=== PATIENT | male | born 1965 | race Caucasian/White ===

== ENCOUNTER 2017-12-13 21:02 | Emergency (ER) | payer OTHER, SELFPAY ==
[2017-12-13 21:47] LABS: Absolute Lymphocytes (CBC) 2.8 K/uL (0.7-4.9); Absolute Monocytes 0.6 K/uL (0.1-1.3); Absolute Neutrophil 3.6 K/uL (1.8-8.0); Eosinophils % 4.1 % (0-4.4); Hematocrit 42.3 % (39.6-49.0); Lymphocytes % 37.3 % (15.3-44.8); MCH 30.7 pg (27.0-35.0); MCV 92.3 fL (80-100); MPV 7.5 fL (7.6-11.3); Monocytes % 8.5 % (3.3-12.3); RBC Red Blood Cell Count 4.58 M/uL (4.33-5.43)
[2017-12-13 21:52] LABS: Protime INR 0.93
[2017-12-13 21:57] LABS: Bicarbonate 28 mEq/L (21-31); Glucose Level 93 mg/dL (65-120); Sodium Level 137 mEq/L (135-145)
[2017-12-13 22:03] LABS: ALT/SGPT 22 IU/L (10-60); AST/SGOT 25 IU/L (10-42); Albumin 3.9 g/dL (3.2-5.5); Alkaline Phosphatase 73 IU/L (42-121); BUN Blood Urea Nitrogen 18 mg/dL (6-20); Bilirubin Direct < 0.1 mg/dL (0-0.2); Bilirubin Total 0.5 mg/dL (0.3-1.2); Creatine Phosphokinase 221 IU/L (22-269); Glomerular Filtration Rate 68 mL/min (=/>90); Magnesium 1.8 mg/dL (1.8-2.5); Protein, Total 7.2 g/dL (6.0-8.3)
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
[2017-12-13 22:06] LABS: CKMB Creatine Kinase MB 5.5 ng/ml (0.3-4.0)
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
[2017-12-13 22:44] VITALS: BP 116/72; TEMP 98.2; O2SAT 97
--- NOTE | 2017-12-14 10:23 | EKG ---
Test Date: 2017-12-13 Test Time: 21:23:21 Transport Driver: VICKI MEASUREMENT RESULTS: Intervals: Rate: 63 FL: 162 QRSD: 92 QT: 410 QTc: 419 [place]: P: 65 FL: 162 QRS: 36 T: 44 INTERPRETIVE STATEMENTS: Normal sinus rhythm Normal ECG Compared to ECG 07/11/2017 22:01:04 No significant changes Electronically Signed On 12-14-17 10:22:58 CDT by Bk Ruelas
== END 2017-12-13 22:36 | disposition home or self-care (01) ==
LOC: ER 21:02
DX: I10 Essential (primary) hypertension; F41.9 Anxiety disorder, unspecified
CPT/HCPCS: 36415; 71045; 80048; 80076; 82550; 82553; 83735; 83880; 84484; 85025; 85610; 85730; 93005; 99284

== ENCOUNTER 2018-04-07 08:48 | Emergency (ER) | payer OTHER, SELFPAY ==
--- OUTSIDE RECORDS SUMMARY | 2018-04-07 08:50 | XMS REPORT ---
:1965 Author Organization eClinicalWorks Care Team Providers Name Role Phone Arteaga, Na Provider Role Unavailable Allergies No Known Allergies Problems Problem Type Condition Code Onset Dates Condition Status Assessment Mixed hyperlipidemia E78.2 Active Problem Mixed hyperlipidemia E78.2 Active Problem Benign essential HTN I10 Active Problem Cerumen impaction H61.20 Active Problem Anxiety F41.9 Active Problem Unspecified osteoarthritis, M19.90 Active unspecified site Problem Depression with anxiety F41.8 Active Problem Hemiparesis G81.90 Active Problem Pressure ulcer of unspecified heel, L89.602 Active stage 2 Medications Medication Code Code Instructions Start End Status Dosage System Date Date Pravastatin [facility] 72979154137 40 MG Orally Active 1 tablet Sodium Once a day Results No Known Results Summary Purpose eClinicalWorks Submission
--- OUTSIDE RECORDS SUMMARY | 2018-04-07 08:50 | XMS REPORT ---
:1965 Author Organization eClinicalWorks Care Team Providers Name Role Phone Arteaga, Laura Provider Role Unavailable Allergies, Adverse Reactions, Alerts Substance Reaction Event Type N.K.D.A. Info Not Available Non Drug Allergy Problems Problem Type Condition Code Onset Dates Condition Status Assessment Mixed hyperlipidemia E78.2 Active Problem Mixed hyperlipidemia E78.2 Active Assessment Benign essential HTN I10 Active Problem Benign essential HTN I10 Active Problem Cerumen impaction H61.20 Active Problem Anxiety F41.9 Active Problem Unspecified osteoarthritis, M19.90 Active unspecified site Problem Depression with anxiety F41.8 Active Problem Hemiparesis G81.90 Active Problem Pressure ulcer of unspecified heel, L89.602 Active stage 2 Assessment Visual disturbance H53.9 Active Assessment Hemiparesis G81.90 Active Assessment Depression with anxiety F41.8 Active Medications Medication Code Code Instructions Start End Status Dosage System Date Date Lisinopril [facility] 98974794091 20 MG Orally Active 1 tablet Once a day Lisinopril [facility] 07710436875 20 MG Active TAKE 1 TABLET BY MOUTH EVERY DAY Quetiapine [facility] 31609352992 25 MG Active TAKE 1 TABLET Fumarate AT BEDTIME Celexa [facility] 47451388596 40 MG Orally Active 1 tablet Once a day Clonazepam [place] 05508496324 0.5 MG Orally Active 1 tablet Three a day Seroquel [facility] 75573897304 50 MG Orally Active 1 tablet Once a day at bedtime Seroquel [facility] 48004912110 25 MG Orally Active 1 tablet Once a day Triamcinolone [facility] 51951761795 0.5 % Active 1 application Acetonide Externally to affected Twice a day area Pravastatin ND 41844170930 40 MG Orally Active 1 tablet Sodium Once a day Results No Known Results Summary Purpose eClinicalWorks Submission
--- OUTSIDE RECORDS SUMMARY | 2018-04-07 08:50 | XMS REPORT ---
:1965 Author Organization eClinicalWorks Care Team Providers Name Role Phone Arteaga, Na Provider Role Unavailable Allergies, Adverse Reactions, Alerts Substance Reaction Event Type N.K.D.A. Info Not Available Non Drug Allergy Problems Problem Type Condition Code Onset Dates Condition Status Problem Mixed hyperlipidemia E78.2 Active Assessment Depression with anxiety F41.8 Active Problem Benign essential HTN I10 Active Problem Cerumen impaction H61.20 Active Problem Anxiety F41.9 Active Problem Unspecified osteoarthritis, M19.90 Active unspecified site Problem Depression with anxiety F41.8 Active Problem Hemiparesis G81.90 Active Problem Pressure ulcer of unspecified heel, L89.602 Active stage 2 Medications Medication Code Code Instructions Start End Status Dosage System Date Date Celexa [facility] 92487902735 40 MG Orally Active 0.5 tablet Once a day Pravastatin [facility] 24342651818 40 MG Orally November Active 1 tablet Sodium Once a day 2017 Clonazepam [facility] 11084932794 0.5 MG Orally Active 1 tablet Three times a day Triamcinolone [facility] 00665182534 0.5 % Active 1 application Acetonide Externally to affected Twice a day area Lisinopril [facility] 04166830772 20 MG Active TAKE 1 TABLET BY MOUTH EVERY DAY Seroquel [facility] 17564531662 25 MG Orally Active 1 tablet Once a day Results No Known Results Summary Purpose eClinicalWorks Submission
--- OUTSIDE RECORDS SUMMARY | 2018-04-07 08:51 | XMS REPORT ---
:1965 Author Organization eClinicalWorks Care Team Providers Name Role Phone Arteaga, Na Provider Role Unavailable Allergies, Adverse Reactions, Alerts Substance Reaction Event Type N.K.D.A. Info Not Available Non Drug Allergy Problems Problem Type Condition Code Onset Dates Condition Status Assessment Depression with anxiety F41.8 Active Problem Mixed hyperlipidemia E78.2 Active Problem Benign essential HTN I10 Active Problem Cerumen impaction H61.20 Active Problem Anxiety F41.9 Active Problem Unspecified osteoarthritis, M19.90 Active unspecified site Problem Depression with anxiety F41.8 Active Problem Hemiparesis G81.90 Active Problem Pressure ulcer of unspecified heel, L89.602 Active stage 2 Medications Medication Code Code Instructions Start End Status Dosage System Date Date Triamcinolone [facility] 51347218659 0.5 % Active 1 application Acetonide Externally to affected Twice a day area Clonazepam [facility] 17226766572 0.5 MG Orally Active 1 tablet Three a day Pravastatin [facility] 05935643623 40 MG Orally Active 1 tablet Sodium Once a day Seroquel [facility] 23203278773 25 MG Orally Active 1 tablet Once a day Lisinopril [facility] 35152918364 20 MG Active TAKE 1 TABLET BY MOUTH EVERY DAY Lisinopril [facility] 68026493526 20 MG Orally Active 1 tablet Once a day Seroquel [facility] 48469278095 50 MG Orally Active 1 tablet Once a day at bedtime Celexa [facility] 64187087516 40 MG Orally Active 1 tablet Once a day Quetiapine [facility] 16910411343 25 MG Active TAKE 1 TABLET Fumarate AT BEDTIME Results No Known Results Summary Purpose eClinicalWorks Submission
--- OUTSIDE RECORDS SUMMARY | 2018-04-07 08:51 | XMS REPORT ---
:1965 Author Organization eClinicalWorks Care Team Providers Name Role Phone Arteaga, Na Provider Role Unavailable Allergies No Known Allergies Problems Problem Type Condition Code Onset Dates Condition Status Problem Mixed hyperlipidemia E78.2 Active Problem Benign essential HTN I10 Active Problem Cerumen impaction H61.20 Active Problem Anxiety F41.9 Active Problem Unspecified osteoarthritis, M19.90 Active unspecified site Problem Depression with anxiety F41.8 Active Problem Hemiparesis G81.90 Active Problem Pressure ulcer of unspecified heel, L89.602 Active stage 2 Medications Medication Code Code Instructions Start End Date Status Dosage System Date Quetiapine [facility] 23952305843 50 MG Orally February 20, Active 1 tablet Fumarate Once a day 2017 Results No Known Results Summary Purpose eClinicalWorks Submission
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
[2018-04-07 10:47] VITALS: BP 105/67; TEMP 98.7; O2SAT 94
--- NOTE | 2018-04-07 10:56 | RAD REPORT ---
EXAM DESCRIPTION: Shoulder Right 2 View - 04/07/2018 9:55 am CLINICAL HISTORY: Fall, shoulder pain COMPARISON: May 2014 TECHNIQUE: Internal and external rotation views of the right shoulder were obtained. FINDINGS: No acute fracture changes are present. There is no dislocation or periosteal reaction. The acromial humeral joint space is effaced. This is progressive from the prior study. Soft tissue calci fications are present along the superolateral humeral head. These are probably remnant posttraumatic or degenerative calcifications in the supraspinatus tendon near the attachment. The effaced joint spa ce would support chronic rotator cuff tear. No pathologic bone process. Ribs and parenchyma of the upper right chest show no acute findings. IMPRESSION: Effacement of the acromial humeral joint space consistent with chronic rotator cuff tear . Underlying degenerative changes to the AC joint and undersurface of the acromion. No fracture, dislocation or acute bone process seen.
== END 2018-04-07 10:42 | disposition home or self-care (01) ==
LOC: ER 08:48
DX: S40.011A Contusion of right shoulder, initial encounter (principal); W01.0XXA Fall on same level from slipping, tripping and stumbling without subsequent striking against object, initial encounter; Y93.89 Activity, other specified; Y92.019 Unspecified place in single-family (private) house as the place of occurrence of the external cause; I10 Essential (primary) hypertension
CPT/HCPCS: 99283

== ENCOUNTER 2018-04-11 16:34 | Emergency (ER) | payer OTHER, SELFPAY ==
--- OUTSIDE RECORDS SUMMARY | 2018-04-11 16:36 | XMS REPORT ---
[...] End Date Status Dosage System Date Quetiapine [facility] 43969317642 50 MG Orally February 20, Active 1 tablet Fumarate Once a day 2017 Results No Known Results Summary Purpose eClinicalWorks Submission
--- OUTSIDE RECORDS SUMMARY | 2018-04-11 16:36 | XMS REPORT ---
[...] End Status Dosage System Date Date Pravastatin [facility] 41872063118 40 MG Orally Active 1 tablet Sodium Once a day Results No Known Results Summary Purpose eClinicalWorks Submission
--- OUTSIDE RECORDS SUMMARY | 2018-04-11 16:36 | XMS REPORT ---
[...] End Status Dosage System Date Date Celexa [facility] 46929149449 40 MG Orally Active 0.5 tablet Once a day Pravastatin [facility] 17208790045 40 MG Orally November Active 1 tablet Sodium Once a day 2017 Clonazepam [facility] 79761618644 0.5 MG Orally Active 1 tablet Three times a day Triamcinolone [facility] 98244815923 0.5 % Active 1 application Acetonide Externally to affected Twice a day area Lisinopril [facility] 69157555496 20 MG Active TAKE 1 TABLET BY MOUTH EVERY DAY Seroquel [facility] 02548069049 25 MG Orally Active 1 tablet Once a day Results No Known Results Summary Purpose eClinicalWorks Submission
--- OUTSIDE RECORDS SUMMARY | 2018-04-11 16:36 | XMS REPORT ---
[...] End Status Dosage System Date Date Triamcinolone [facility] 85828600989 0.5 % Active 1 application Acetonide Externally to affected Twice a day area Clonazepam [facility] 19877211118 0.5 MG Orally Active 1 tablet Three a day Pravastatin [facility] 32953256701 40 MG Orally Active 1 tablet Sodium Once a day Seroquel [facility] 94897011913 25 MG Orally Active 1 tablet Once a day Lisinopril [facility] 45045994865 20 MG Active TAKE 1 TABLET BY MOUTH EVERY DAY Lisinopril [facility] 35065719068 20 MG Orally Active 1 tablet Once a day Seroquel [facility] 13967597725 50 MG Orally Active 1 tablet Once a day at bedtime Celexa [facility] 56500952286 40 MG Orally Active 1 tablet Once a day Quetiapine [facility] 69557996593 25 MG Active TAKE 1 TABLET Fumarate AT BEDTIME Results No Known Results Summary Purpose eClinicalWorks Submission
--- OUTSIDE RECORDS SUMMARY | 2018-04-11 16:36 | XMS REPORT ---
[...] End Status Dosage System Date Date Lisinopril [facility] 76184619631 20 MG Orally Active 1 tablet Once a day Lisinopril [facility] 87557780004 20 MG Active TAKE 1 TABLET BY MOUTH EVERY DAY Quetiapine [facility] 76658804655 25 MG Active TAKE 1 TABLET Fumarate AT BEDTIME Celexa [facility] 19256619844 40 MG Orally Active 1 tablet Once a day Clonazepam [place] 08634533742 0.5 MG Orally Active 1 tablet Three a day Seroquel [facility] 19373135100 50 MG Orally Active 1 tablet Once a day at bedtime Seroquel [facility] 14822924242 25 MG Orally Active 1 tablet Once a day Triamcinolone [facility] 37577377419 0.5 % Active 1 application Acetonide Externally to affected Twice a day area Pravastatin ND 69637318217 40 MG Orally Active 1 tablet Sodium Once a day Results No Known Results Summary Purpose eClinicalWorks Submission
--- NOTE | 2018-04-11 17:52 | RAD REPORT ---
EXAM DESCRIPTION: CT - Head C Spine Mpr Wo Con - 04/11/2018 5:20 pm CLINICAL HISTORY: Head and neck injury status post fall. Head and neck pain COMPARISON: [address] TECHNIQUE: Computed axial tomography of the head and cervical spine was obtained. Sagittal and coronal reconstruction was performed. All CT scans are performed using dose optimization technique as appropriate and may include automated exposure control or mA/KV adjustment according to patient size. FINDINGS: Postsurgical changes of a right craniotomy are present with cystic encephalomalacia within the right cerebrum. An acute intracranial bleed is not seen. 2 centimeter low-density area within the left frontal lobe is chronic. An extra-axial fluid collection is not noted. Hydrocephalus is not seen. Fluid within the visualized sinuses and mastoids is not seen A cervical fracture is not visualized. No dislocation is noted. IMPRESSION: No acute intracranial abnormality is seen. A cervical fracture is not visualized.
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
--- NOTE | 2018-04-11 18:04 | RAD REPORT ---
EXAM DESCRIPTION: Shoulder Right 2 View - 04/11/2018 5:44 pm CLINICAL HISTORY: Shoulder pain COMPARISON: April 07 TECHNIQUE: Internal and external rotation views of the right shoulder were obtained. FINDINGS: No fracture or dislocation. Degenerative changes are seen in the superolateral humeral hea d and there are soft tissue calcifications that are probably calcific tendinosis/tendinitis. Minimal spurring at the AC joint. The effacement of the acromial humeral joint space is not as pronounced on the current examination. The joint space is reduced. Chronic rotator cuff tear is still a considerati on. IMPRESSION: Right shoulder joint degenerative changes are present similar to the prior imaging. No acute finding. Concerns for chronic rotator cuff tear or other internal derangement can be address ed with MR imaging.
[2018-04-11] MEDS ORDERED: IBUPROFEN 400 MG TAB ONE (18:15)
[2018-04-11] MEDS ORDERED: IBUPROFEN 200 MG TAB PO ONE (18:16)
[2018-04-11 18:36] VITALS: TEMP 98.6
[2018-04-11 18:37] VITALS: BP 112/65; O2SAT 99
== END 2018-04-11 18:31 | disposition home or self-care (01) ==
LOC: ER 16:34
DX: S00.81XA Abrasion of other part of head, initial encounter (principal); W01.198A Fall on same level from slipping, tripping and stumbling with subsequent striking against other object, initial encounter; Y93.89 Activity, other specified; Y92.89 Other specified places as the place of occurrence of the external cause; I10 Essential (primary) hypertension; F32.9 Major depressive disorder, single episode, unspecified
CPT/HCPCS: 70450; 72125; 99284

== ENCOUNTER 2018-08-11 09:30 | Emergency (ER) | payer MEDICARE, SELFPAY ==
--- OUTSIDE RECORDS SUMMARY | 2018-08-11 09:31 | XMS REPORT ---
[...] End Status Dosage System Date Date Celexa [facility] 65389767316 40 MG Orally Active 0.5 tablet Once a day Pravastatin [facility] 06535295609 40 MG Orally November Active 1 tablet Sodium Once a day 2017 Clonazepam [facility] 78171087366 0.5 MG Orally Active 1 tablet Three times a day Triamcinolone [facility] 31226198907 0.5 % Active 1 application Acetonide Externally to affected Twice a day area Lisinopril [facility] 49059044671 20 MG Active TAKE 1 TABLET BY MOUTH EVERY DAY Seroquel [facility] 93176334819 25 MG Orally Active 1 tablet Once a day Results No Known Results Summary Purpose eClinicalWorks Submission
--- OUTSIDE RECORDS SUMMARY | 2018-08-11 09:31 | XMS REPORT ---
[...] End Status Dosage System Date Date Lisinopril [facility] 83068919992 20 MG Orally Active 1 tablet Once a day Lisinopril [facility] 83793020062 20 MG Active TAKE 1 TABLET BY MOUTH EVERY DAY Quetiapine [facility] 12047741916 25 MG Active TAKE 1 TABLET Fumarate AT BEDTIME Celexa [facility] 12584080251 40 MG Orally Active 1 tablet Once a day Clonazepam [place] 89218917079 0.5 MG Orally Active 1 tablet Three a day Seroquel [facility] 12107359485 50 MG Orally Active 1 tablet Once a day at bedtime Seroquel [facility] 87171949228 25 MG Orally Active 1 tablet Once a day Triamcinolone [facility] 23875948292 0.5 % Active 1 application Acetonide Externally to affected Twice a day area Pravastatin ND 27687398849 40 MG Orally Active 1 tablet Sodium Once a day Results No Known Results Summary Purpose eClinicalWorks Submission
--- OUTSIDE RECORDS SUMMARY | 2018-08-11 09:31 | XMS REPORT ---
[...] End Status Dosage System Date Date Pravastatin [facility] 47099925531 40 MG Orally Active 1 tablet Sodium Once a day Results No Known Results Summary Purpose eClinicalWorks Submission
--- OUTSIDE RECORDS SUMMARY | 2018-08-11 09:31 | XMS REPORT ---
[...] End Status Dosage System Date Date Triamcinolone [facility] 30193456160 0.5 % Active 1 application Acetonide Externally to affected Twice a day area Clonazepam [facility] 55031098253 0.5 MG Orally Active 1 tablet Three a day Pravastatin [facility] 46455554741 40 MG Orally Active 1 tablet Sodium Once a day Seroquel [facility] 58280099450 25 MG Orally Active 1 tablet Once a day Lisinopril [facility] 91518972702 20 MG Active TAKE 1 TABLET BY MOUTH EVERY DAY Lisinopril [facility] 91437205174 20 MG Orally Active 1 tablet Once a day Seroquel [facility] 68815634612 50 MG Orally Active 1 tablet Once a day at bedtime Celexa [facility] 34922558316 40 MG Orally Active 1 tablet Once a day Quetiapine [facility] 59919888401 25 MG Active TAKE 1 TABLET Fumarate AT BEDTIME Results No Known Results Summary Purpose eClinicalWorks Submission
--- OUTSIDE RECORDS SUMMARY | 2018-08-11 09:31 | XMS REPORT ---
[...] End Date Status Dosage System Date Quetiapine [facility] 15838415382 50 MG Orally February 20, Active 1 tablet Fumarate Once a day 2017 Results No Known Results Summary Purpose eClinicalWorks Submission
--- OUTSIDE RECORDS SUMMARY | 2018-08-11 09:32 | XMS REPORT ---
[...] Start End Status Dosage System Date Date Clonazepam [facility] 81081911286 0.5 MG Orally Active 1 tablet Three a day Celexa [facility] 19300104563 40 MG Orally Active 1 tablet Once a day Quetiapine [facility] 94013925864 50 MG Orally Lori Active 1 tablet Fumarate Once a day 2017 Citalopram [facility] 82827386580 40 MG Active TAKE 1 TABLET Hydrobromide BY MOUTH EVERY DAY Seroquel [facility] 99608272457 25 MG Orally Active 1 tablet Once a day Lisinopril [facility] 83101515157 20 MG Active TAKE 1 TABLET BY MOUTH EVERY DAY Seroquel [facility] 31777819650 50 MG Orally Active 1 tablet Once a day at bedtime Quetiapine [facility] 40175002186 25 MG Active TAKE 1 TABLET Fumarate AT BEDTIME Pravastatin [facility] 29995661981 40 MG Orally Active 1 tablet Sodium Once a day Triamcinolone [facility] 12609216529 0.5 % Active 1 application Acetonide Externally to affected Twice a day area Lisinopril ND 22274629369 20 MG Orally Active 1 tablet Once a day Results No Known Results Summary Purpose eClinicalWorks Submission
--- OUTSIDE RECORDS SUMMARY | 2018-08-11 09:32 | XMS REPORT ---
:1965 Author Organization eClinicalWorks Care Team Providers Name Role Phone Arteaga, Na Provider Role Unavailable Allergies, Adverse Reactions, Alerts Substance Reaction Event Type N.K.D.A. Info Not Available Non Drug Allergy Problems Problem Type Condition Code Onset Dates Condition Status Problem Depression with anxiety F41.8 Active Problem Cerumen impaction H61.20 Active Problem Hemiparesis G81.90 Active Problem Need for assistance due to unsteady R26.89 Active gait Problem Short leg syndrome, left, acquired M21.70 Active Problem Weakness of left lower extremity R29.898 Active Problem Anxiety F41.9 Active Problem Benign essential HTN I10 Active Problem Pressure ulcer of unspecified heel, L89.602 Active stage 2 Problem Unspecified osteoarthritis, M19.90 Active unspecified site Assessment Need for assistance due to unsteady R26.89 Active gait Assessment Short leg syndrome, left, acquired M21.70 Active Assessment Weakness of left lower extremity R29.898 Active Assessment Mixed hyperlipidemia E78.2 Active Assessment Benign essential HTN I10 Active Assessment Hemiparesis G81.90 Active Assessment Depression with anxiety F41.8 Active Problem Mixed hyperlipidemia E78.2 Active Medications Medication Code Code Instructions Start End Status Dosage System Date Date Quetiapine [facility] 90772781064 50 MG Orally Lori Active 1 tablet Fumarate Once a day 2017 Lisinopril [facility] 34768896071 20 MG Orally Active 1 tablet Once a day Pravastatin [facility] 33036029140 40 MG Orally Active 1 tablet Sodium Once a day Clonazepam [facility] 33227353182 0.5 MG Orally Active 1 tablet Three a day Triamcinolone [facility] 89291473226 0.5 % Active 1 application Acetonide Externally to affected Twice a day area Lisinopril [facility] 70266910814 20 MG Active TAKE 1 TABLET BY MOUTH EVERY DAY Celexa [facility] 62631353947 40 MG Orally Active 1 tablet Once a day Seroquel [facility] 57178850197 25 MG Orally Active 1 tablet Once a day Seroquel [facility] 77129747411 50 MG Orally Active 1 tablet Once a day at bedtime Quetiapine [facility] 16021781467 25 MG Active TAKE 1 TABLET Fumarate AT BEDTIME Citalopram [facility] 66696335242 40 MG Active TAKE 1 TABLET Hydrobromide BY MOUTH EVERY DAY Results No Known Results Summary Purpose eClinicalWorks Submission
--- OUTSIDE RECORDS SUMMARY | 2018-08-11 09:32 | XMS REPORT ---
[...] Unspecified osteoarthritis, M19.90 Active unspecified site Assessment Acute sinusitis J01.90 Active Assessment Depression with anxiety F41.8 Active Problem Mixed hyperlipidemia E78.2 Active Medications Medication Code Code Instructions Start End Status Dosage System Date Date Pravastatin [facility] 79065194005 40 MG Orally Active 1 tablet Sodium Once a day Quetiapine [facility] 32012874750 50 MG Orally February Active 1 tablet Fumarate Once a day 2017 Triamcinolone [facility] 45037208465 0.5 % Active 1 application Acetonide Externally to affected Twice a day area Citalopram [facility] 08209423838 40 MG Active TAKE 1 TABLET Hydrobromide BY MOUTH EVERY DAY Seroquel [facility] 43268016569 50 MG Orally Active 1 tablet Once a day at bedtime Lisinopril ND 35907164122 20 MG Active TAKE 1 TABLET BY MOUTH EVERY DAY Lisinopril ND 15510070584 20 MG Orally Active 1 tablet Once a day Quetiapine [facility] 88340058167 25 MG Active TAKE 1 TABLET Fumarate AT BEDTIME Seroquel [facility] 50278868696 25 MG Orally Active 1 tablet Once a day Augmentin [facility] 65470364689 875-125 MG Jun 30Jun Active 1 tablet Orally every 2017 19, hrs 2017 Celexa [facility] 49787473704 40 MG Orally Active 1 tablet Once a day Zyrtec Allergy [facility] 83103419355 10 MG Orally Jun 30, Active 1 tablet Once a day 2017 Flonase [facility] 01932598309 50 MCG/ACT Jun 30, Active 1 spray in Nasally Once a 2018 each nostril day Clonazepam [facility] 28914209404 0.5 MG Orally Active 1 tablet Three a day Results No Known Results Summary Purpose eClinicalWorks Submission
[2018-08-11] MEDS ORDERED: SMZ./TMP. 800/160 MG TABLET ONE (10:50)
[2018-08-11] MEDS ORDERED: DOXYCYCLINE 100 MG CAP PO ONE (10:50)
[2018-08-11] MEDS ORDERED: HYDROCODONE/APAP 10/325 TAB ONE (10:50)
[2018-08-11] MEDS ORDERED: NA CHLORIDE 0.9% 1,000 ML ONE (10:51)
[2018-08-11 11:03] LABS: Absolute Lymphocytes (CBC) 2.4 K/uL (0.7-4.9); Absolute Monocytes 0.6 K/uL (0.1-1.3); Absolute Neutrophil 4.7 K/uL (1.8-8.0); Basophils % 0.6 % (0-1.3); Eosinophils % 3.6 % (0-4.4); Hematocrit 43.2 % (39.6-49.0); Lymphocytes % 29.6 % (15.3-44.8); MCH 32.8 pg (27.0-35.0); MCV 93.7 fL (80-100); MPV 7.6 fL (7.6-11.3); Monocytes % 7.8 % (3.3-12.3); RBC Red Blood Cell Count 4.61 M/uL (4.33-5.43)
[2018-08-11 11:27] LABS: Albumin 3.8 g/dL (3.4-5.0); Bilirubin Total 0.5 mg/dL (0.2-1.0); Potassium 4.2 mmol/L (3.5-5.1); Protein, Total 8.2 g/dL (6.4-8.2)
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
[2018-08-11 12:13] VITALS: BP 106/72; TEMP 98; O2SAT 97
== END 2018-08-11 11:48 | disposition home or self-care (01) ==
LOC: ER 09:30
DX: L30.9 Dermatitis, unspecified (principal); L03.317 Cellulitis of buttock; I10 Essential (primary) hypertension; F17.210 Nicotine dependence, cigarettes, uncomplicated
CPT/HCPCS: 36415; 80053; 85025; 96360; 99284; J7030

== ENCOUNTER 2018-10-05 12:57 | Emergency (ER) | payer MEDICARE ==
--- OUTSIDE RECORDS SUMMARY | 2018-10-05 12:58 | XMS REPORT ---
[...] End Status Dosage System Date Date Pravastatin [facility] 39871180520 40 MG Orally Active 1 tablet Sodium Once a day Results No Known Results Summary Purpose eClinicalWorks Submission
--- OUTSIDE RECORDS SUMMARY | 2018-10-05 12:58 | XMS REPORT ---
[...] End Status Dosage System Date Date Triamcinolone [facility] 81420319604 0.5 % Active 1 application Acetonide Externally to affected Twice a day area Clonazepam [facility] 03106892981 0.5 MG Orally Active 1 tablet Three a day Pravastatin [facility] 40761247994 40 MG Orally Active 1 tablet Sodium Once a day Seroquel [facility] 59757717364 25 MG Orally Active 1 tablet Once a day Lisinopril [facility] 16312330268 20 MG Active TAKE 1 TABLET BY MOUTH EVERY DAY Lisinopril [facility] 33978202076 20 MG Orally Active 1 tablet Once a day Seroquel [facility] 64730162727 50 MG Orally Active 1 tablet Once a day at bedtime Celexa [facility] 99779657724 40 MG Orally Active 1 tablet Once a day Quetiapine [facility] 96920951677 25 MG Active TAKE 1 TABLET Fumarate AT BEDTIME Results No Known Results Summary Purpose eClinicalWorks Submission
--- OUTSIDE RECORDS SUMMARY | 2018-10-05 12:58 | XMS REPORT ---
[...] Status Dosage System Date Date Celexa [facility] 24910743002 40 MG Orally Active 0.5 tablet Once a day Pravastatin [facility] 93261709461 40 MG Orally November Active 1 tablet Sodium Once a day 2017 Clonazepam [facility] 61179267040 0.5 MG Orally Active 1 tablet Three times a day Triamcinolone [facility] 57319127016 0.5 % Active 1 application Acetonide Externally to affected Twice a day area Lisinopril [facility] 84272800856 20 MG Active TAKE 1 TABLET BY MOUTH EVERY DAY Seroquel [facility] 41477881494 25 MG Orally Active 1 tablet Once a day Results No Known Results Summary Purpose eClinicalWorks Submission
--- OUTSIDE RECORDS SUMMARY | 2018-10-05 12:58 | XMS REPORT ---
[...] Status Dosage System Date Date Lisinopril [facility] 10221889050 20 MG Orally Active 1 tablet Once a day Lisinopril [facility] 66471935349 20 MG Active TAKE 1 TABLET BY MOUTH EVERY DAY Quetiapine [facility] 04796305060 25 MG Active TAKE 1 TABLET Fumarate AT BEDTIME Celexa [facility] 99543324647 40 MG Orally Active 1 tablet Once a day Clonazepam [place] 81690027513 0.5 MG Orally Active 1 tablet Three a day Seroquel [facility] 25403010186 50 MG Orally Active 1 tablet Once a day at bedtime Seroquel [facility] 61478667587 25 MG Orally Active 1 tablet Once a day Triamcinolone [facility] 13454016031 0.5 % Active 1 application Acetonide Externally to affected Twice a day area Pravastatin ND 34413439890 40 MG Orally Active 1 tablet Sodium Once a day Results No Known Results Summary Purpose eClinicalWorks Submission
--- OUTSIDE RECORDS SUMMARY | 2018-10-05 12:59 | XMS REPORT ---
:1965 Author Organization eClinicalWorks Care Team Providers Name Role Phone Arteaga, Na Provider Role Unavailable Allergies No Known Allergies Problems Problem Type Condition Code Onset Dates Condition Status Problem Depression with anxiety F41.8 Active Problem Cerumen impaction H61.20 Active Problem Hemiparesis G81.90 Active Problem Mixed hyperlipidemia E78.2 Active Problem Need for assistance due to unsteady R26.89 Active gait Problem Short leg syndrome, left, acquired M21.70 Active Problem Weakness of left lower extremity R29.898 Active Problem Anxiety F41.9 Active Problem Benign essential HTN I10 Active Problem Pressure ulcer of unspecified heel, L89.602 Active stage 2 Problem Unspecified osteoarthritis, M19.90 Active unspecified site Medications No Known Medications Results No Known Results Summary Purpose eClinicalWorks Submission
--- OUTSIDE RECORDS SUMMARY | 2018-10-05 12:59 | XMS REPORT ---
[...] End Status Dosage System Date Date Clonazepam [facility] 07706437771 0.5 MG Orally Active 1 tablet Three a day Celexa [facility] 22006208656 40 MG Orally Active 1 tablet Once a day Quetiapine [facility] 62628964539 50 MG Orally Lori Active 1 tablet Fumarate Once a day 2017 Citalopram [facility] 91616229652 40 MG Active TAKE 1 TABLET Hydrobromide BY MOUTH EVERY DAY Seroquel [facility] 81673866837 25 MG Orally Active 1 tablet Once a day Lisinopril [facility] 74754896046 20 MG Active TAKE 1 TABLET BY MOUTH EVERY DAY Seroquel [facility] 36182158483 50 MG Orally Active 1 tablet Once a day at bedtime Quetiapine [facility] 49410297375 25 MG Active TAKE 1 TABLET Fumarate AT BEDTIME Pravastatin [facility] 31620654879 40 MG Orally Active 1 tablet Sodium Once a day Triamcinolone [facility] 24690089747 0.5 % Active 1 application Acetonide Externally to affected Twice a day area Lisinopril ND 65538739404 20 MG Orally Active 1 tablet Once a day Results No Known Results Summary Purpose eClinicalWorks Submission
--- OUTSIDE RECORDS SUMMARY | 2018-10-05 12:59 | XMS REPORT ---
[...] End Date Status Dosage System Date Quetiapine [facility] 74532578479 50 MG Orally February 20, Active 1 tablet Fumarate Once a day 2017 Results No Known Results Summary Purpose eClinicalWorks Submission
--- OUTSIDE RECORDS SUMMARY | 2018-10-05 12:59 | XMS REPORT ---
[...] End Status Dosage System Date Date Pravastatin [facility] 49961585039 40 MG Orally Active 1 tablet Sodium Once a day Quetiapine [facility] 38206239505 50 MG Orally February Active 1 tablet Fumarate Once a day 2017 Triamcinolone [facility] 55416950106 0.5 % Active 1 application Acetonide Externally to affected Twice a day area Citalopram [facility] 20303641225 40 MG Active TAKE 1 TABLET Hydrobromide BY MOUTH EVERY DAY Seroquel [facility] 07212836201 50 MG Orally Active 1 tablet Once a day at bedtime Lisinopril ND 31537063999 20 MG Active TAKE 1 TABLET BY MOUTH EVERY DAY Lisinopril ND 48159363886 20 MG Orally Active 1 tablet Once a day Quetiapine [facility] 05904090624 25 MG Active TAKE 1 TABLET Fumarate AT BEDTIME Seroquel [facility] 78496822920 25 MG Orally Active 1 tablet Once a day Augmentin [facility] 62541432293 875-125 MG Jun 30Jun Active 1 tablet Orally every 2017 19, hrs 2017 Celexa [facility] 25822477761 40 MG Orally Active 1 tablet Once a day Zyrtec Allergy [facility] 24572798972 10 MG Orally Jun 30, Active 1 tablet Once a day 2017 Flonase [facility] 61190189707 50 MCG/ACT Jun 30, Active 1 spray in Nasally Once a 2018 each nostril day Clonazepam [facility] 68319401508 0.5 MG Orally Active 1 tablet Three a day Results No Known Results Summary Purpose eClinicalWorks Submission
--- OUTSIDE RECORDS SUMMARY | 2018-10-05 12:59 | XMS REPORT ---
[...] End Status Dosage System Date Date Quetiapine [facility] 86072016664 50 MG Orally Lori Active 1 tablet Fumarate Once a day 2017 Lisinopril [facility] 64005673356 20 MG Orally Active 1 tablet Once a day Pravastatin [facility] 77796150007 40 MG Orally Active 1 tablet Sodium Once a day Clonazepam [facility] 37894122834 0.5 MG Orally Active 1 tablet Three a day Triamcinolone [facility] 80088826653 0.5 % Active 1 application Acetonide Externally to affected Twice a day area Lisinopril [facility] 66892913274 20 MG Active TAKE 1 TABLET BY MOUTH EVERY DAY Celexa [facility] 77382861980 40 MG Orally Active 1 tablet Once a day Seroquel [facility] 75534629224 25 MG Orally Active 1 tablet Once a day Seroquel [facility] 53376451352 50 MG Orally Active 1 tablet Once a day at bedtime Quetiapine [facility] 31049939636 25 MG Active TAKE 1 TABLET Fumarate AT BEDTIME Citalopram [facility] 70218096989 40 MG Active TAKE 1 TABLET Hydrobromide BY MOUTH EVERY DAY Results No Known Results Summary Purpose eClinicalWorks Submission
[2018-10-05] MEDS ORDERED: LORAZEPAM 1 MG TABLET ONE (14:04)
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
[2018-10-05 16:54] VITALS: TEMP 98.5
[2018-10-05 16:55] VITALS: BP 117/76; O2SAT 99
== END 2018-10-05 16:48 | disposition home or self-care (01) ==
LOC: ER 12:57
DX: F41.9 Anxiety disorder, unspecified (principal); F17.200 Nicotine dependence, unspecified, uncomplicated

== ENCOUNTER 2018-10-14 23:34 | Emergency (ER) | payer MEDICARE ==
--- OUTSIDE RECORDS SUMMARY | 2018-10-14 23:36 | XMS REPORT ---
[...] Celexa [facility] 71198942756 40 MG Orally Active 0.5 tablet Once a day Pravastatin [facility] 06239845323 40 MG Orally November Active 1 tablet Sodium Once a day 2017 Clonazepam [facility] 28051288431 0.5 MG Orally Active 1 tablet Three times a day Triamcinolone [facility] 12092992587 0.5 % Active 1 application Acetonide Externally to affected Twice a day area Lisinopril [facility] 20978890804 20 MG Active TAKE 1 TABLET BY MOUTH EVERY DAY Seroquel [facility] 15917789657 25 MG Orally Active 1 tablet Once a day Results No Known Results Summary Purpose eClinicalWorks Submission
--- OUTSIDE RECORDS SUMMARY | 2018-10-14 23:36 | XMS REPORT ---
[...] End Status Dosage System Date Date Lisinopril [facility] 73923801224 20 MG Orally Active 1 tablet Once a day Lisinopril [facility] 90842999467 20 MG Active TAKE 1 TABLET BY MOUTH EVERY DAY Quetiapine [facility] 93741644590 25 MG Active TAKE 1 TABLET Fumarate AT BEDTIME Celexa [facility] 01473430931 40 MG Orally Active 1 tablet Once a day Clonazepam [place] 86283093146 0.5 MG Orally Active 1 tablet Three a day Seroquel [facility] 21637753597 50 MG Orally Active 1 tablet Once a day at bedtime Seroquel [facility] 39149619264 25 MG Orally Active 1 tablet Once a day Triamcinolone [facility] 58030113884 0.5 % Active 1 application Acetonide Externally to affected Twice a day area Pravastatin ND 01730801034 40 MG Orally Active 1 tablet Sodium Once a day Results No Known Results Summary Purpose eClinicalWorks Submission
--- OUTSIDE RECORDS SUMMARY | 2018-10-14 23:37 | XMS REPORT ---
[...] End Status Dosage System Date Date Triamcinolone [facility] 90753606207 0.5 % Active 1 application Acetonide Externally to affected Twice a day area Clonazepam [facility] 15968229778 0.5 MG Orally Active 1 tablet Three a day Pravastatin [facility] 02003927944 40 MG Orally Active 1 tablet Sodium Once a day Seroquel [facility] 95778078260 25 MG Orally Active 1 tablet Once a day Lisinopril [facility] 12323599652 20 MG Active TAKE 1 TABLET BY MOUTH EVERY DAY Lisinopril [facility] 29171981829 20 MG Orally Active 1 tablet Once a day Seroquel [facility] 21210839538 50 MG Orally Active 1 tablet Once a day at bedtime Celexa [facility] 97548237862 40 MG Orally Active 1 tablet Once a day Quetiapine [facility] 13616249777 25 MG Active TAKE 1 TABLET Fumarate AT BEDTIME Results No Known Results Summary Purpose eClinicalWorks Submission
--- OUTSIDE RECORDS SUMMARY | 2018-10-14 23:37 | XMS REPORT ---
[...] End Status Dosage System Date Date Quetiapine [facility] 51951899838 50 MG Orally Lori Active 1 tablet Fumarate Once a day 2017 Lisinopril [facility] 18350992900 20 MG Orally Active 1 tablet Once a day Pravastatin [facility] 21236544948 40 MG Orally Active 1 tablet Sodium Once a day Clonazepam [facility] 66811646804 0.5 MG Orally Active 1 tablet Three a day Triamcinolone [facility] 34510789512 0.5 % Active 1 application Acetonide Externally to affected Twice a day area Lisinopril [facility] 81813004470 20 MG Active TAKE 1 TABLET BY MOUTH EVERY DAY Celexa [facility] 01855754607 40 MG Orally Active 1 tablet Once a day Seroquel [facility] 65987668540 25 MG Orally Active 1 tablet Once a day Seroquel [facility] 00999439099 50 MG Orally Active 1 tablet Once a day at bedtime Quetiapine [facility] 54235255191 25 MG Active TAKE 1 TABLET Fumarate AT BEDTIME Citalopram [facility] 74167708116 40 MG Active TAKE 1 TABLET Hydrobromide BY MOUTH EVERY DAY Results No Known Results Summary Purpose eClinicalWorks Submission
--- OUTSIDE RECORDS SUMMARY | 2018-10-14 23:37 | XMS REPORT ---
[...] End Status Dosage System Date Date Pravastatin [facility] 57850505078 40 MG Orally Active 1 tablet Sodium Once a day Quetiapine [facility] 65893613514 50 MG Orally February Active 1 tablet Fumarate Once a day 2017 Triamcinolone [facility] 80311710667 0.5 % Active 1 application Acetonide Externally to affected Twice a day area Citalopram [facility] 71899165772 40 MG Active TAKE 1 TABLET Hydrobromide BY MOUTH EVERY DAY Seroquel [facility] 52990603789 50 MG Orally Active 1 tablet Once a day at bedtime Lisinopril ND 44620524060 20 MG Active TAKE 1 TABLET BY MOUTH EVERY DAY Lisinopril ND 90882420895 20 MG Orally Active 1 tablet Once a day Quetiapine [facility] 13954521984 25 MG Active TAKE 1 TABLET Fumarate AT BEDTIME Seroquel [facility] 01332387855 25 MG Orally Active 1 tablet Once a day Augmentin [facility] 93490949771 875-125 MG Jun 30Jun Active 1 tablet Orally every 2017 19, hrs 2017 Celexa [facility] 10587792645 40 MG Orally Active 1 tablet Once a day Zyrtec Allergy [facility] 54393126001 10 MG Orally Jun 30, Active 1 tablet Once a day 2017 Flonase [facility] 13062935802 50 MCG/ACT Jun 30, Active 1 spray in Nasally Once a 2018 each nostril day Clonazepam [facility] 97453174993 0.5 MG Orally Active 1 tablet Three a day Results No Known Results Summary Purpose eClinicalWorks Submission
--- OUTSIDE RECORDS SUMMARY | 2018-10-14 23:37 | XMS REPORT ---
[...] End Status Dosage System Date Date Clonazepam [facility] 82223958864 0.5 MG Orally Active 1 tablet Three a day Celexa [facility] 74904744011 40 MG Orally Active 1 tablet Once a day Quetiapine [facility] 72259094517 50 MG Orally Lori Active 1 tablet Fumarate Once a day 2017 Citalopram [facility] 11938829581 40 MG Active TAKE 1 TABLET Hydrobromide BY MOUTH EVERY DAY Seroquel [facility] 60514711940 25 MG Orally Active 1 tablet Once a day Lisinopril [facility] 23572800270 20 MG Active TAKE 1 TABLET BY MOUTH EVERY DAY Seroquel [facility] 45851092847 50 MG Orally Active 1 tablet Once a day at bedtime Quetiapine [facility] 75639715690 25 MG Active TAKE 1 TABLET Fumarate AT BEDTIME Pravastatin [facility] 01544798293 40 MG Orally Active 1 tablet Sodium Once a day Triamcinolone [facility] 92565944075 0.5 % Active 1 application Acetonide Externally to affected Twice a day area Lisinopril ND 26601577129 20 MG Orally Active 1 tablet Once a day Results No Known Results Summary Purpose eClinicalWorks Submission
--- OUTSIDE RECORDS SUMMARY | 2018-10-14 23:37 | XMS REPORT ---
[...] End Status Dosage System Date Date Pravastatin [facility] 51719325594 40 MG Orally Active 1 tablet Sodium Once a day Results No Known Results Summary Purpose eClinicalWorks Submission
--- OUTSIDE RECORDS SUMMARY | 2018-10-14 23:37 | XMS REPORT ---
[...] End Date Status Dosage System Date Quetiapine [facility] 47221781775 50 MG Orally February 20, Active 1 tablet Fumarate Once a day 2017 Results No Known Results Summary Purpose eClinicalWorks Submission
[2018-10-15] MEDS ORDERED: NA CHLORIDE 0.9% 2,000 ML ONE (00:44)
[2018-10-15 01:39] LABS: Absolute Lymphocytes (CBC) 2.1 K/uL (0.7-4.9); Absolute Monocytes 0.8 K/uL (0.1-1.3); Absolute Neutrophil 4.5 K/uL (1.8-8.0); Basophils % 0.6 % (0-1.3); Eosinophils % 7.8 % (0-4.4); Lymphocytes % 25.7 % (15.3-44.8); MPV 7.7 fL (7.6-11.3); Monocytes % 10.4 % (3.3-12.3)
[2018-10-15 01:48] LABS: Protime INR 0.92
[2018-10-15 01:56] LABS: ALT/SGPT 31 U/L (12-78); AST/SGOT 28 U/L (15-37); Albumin 3.4 g/dL (3.4-5.0); Alkaline Phosphatase 67 U/L (45-117); BUN Blood Urea Nitrogen 28 mg/dL (7-18); Bicarbonate 24 mmol/L (21-32); Bilirubin Direct < 0.1 mg/dL (0-0.2); Bilirubin Total 0.2 mg/dL (0.2-1.0); Creatine Phosphokinase 185 U/L (39-308); Glucose Level 102 mg/dL (74-106); Lipase 135 U/L (73-393); Potassium 4.1 mmol/L (3.5-5.1); Protein, Total 7.3 g/dL (6.4-8.2); Sodium Level 139 mmol/L (136-145)
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
[2018-10-15 05:33] VITALS: BP 106/71; TEMP 97.8; O2SAT 98
[2018-10-15 05:42] LABS: Urine Bacteria <20 /HPF (NONE SEEN); Urine RBC <5 /HPF (NONE SEEN)
[2018-10-15 05:43] LABS: Urine Culture Reflex Order NOT NEEDED
[2018-10-15 05:44] LABS: Urine Blood NEGATIVE (NEG); Urine Glucose NEGATIVE (NEG); Urine Protein NEGATIVE (NEG); Urine pH 5.5 (5.0-7.0)
--- NOTE | 2018-10-15 10:03 | RAD REPORT ---
EXAM DESCRIPTION: CT - Abdomen Pelvis W Contrast - 10/15/2018 2:22 am CLINICAL HISTORY: Abdominal pain COMPARISON: 2015 TECHNIQUE: Computed axial tomography of the abdomen pelvis was obtained. 100 cc Isovue-300 was admin istered intravenously. Oral contrast was not requested which limits evaluation of bowel. All CT scans are performed using dose optimization technique as appropriate and may include automated exposure control or mA/KV adjustment according to patient size. FINDINGS: The liver, spleen, pancreas, adrenal and kidneys appear unremarkable. There is no evidence of diverticulitis. The appendix is normal. Mild thickening of the wall of the sigmoid colon and rectum is present IMPRESSION: Mild sigmoid colitis/proctitis.
--- NOTE | 2018-10-15 10:56 | RAD REPORT ---
EXAM DESCRIPTION: Isela Single View10/15/2018 1:24 am CLINICAL HISTORY: cough COMPARISON: November 2017 FINDINGS: The lungs appear clear of acute infiltrate. The heart is normal size IMPRESSION: No acute abnormalities displayed
--- NOTE | 2018-10-16 20:53 | EKG ---
Test Date: 2018-10-15 Test Time: 00:42:49 Coper Hand: AG3 MEASUREMENT RESULTS: Intervals: Rate: 79 MI: 98 QRSD: 80 QT: 376 QTc: 431 [place]: P: -27 MI: 98 QRS: 53 T: 77 INTERPRETIVE STATEMENTS: Sinus rhythm with short MI Otherwise normal ECG Compared to ECG 12/13/2017 21:23:21 Short MI interval now present Electronically Signed On 10-16-18 20:48:24 DRAFTER TOOL DESIGN by Hugh De Oliveira
== END 2018-10-15 04:47 | disposition home or self-care (01) ==
LOC: ER 23:34
DX: E86.0 Dehydration (principal); F17.210 Nicotine dependence, cigarettes, uncomplicated; I10 Essential (primary) hypertension; F41.9 Anxiety disorder, unspecified; F32.9 Major depressive disorder, single episode, unspecified
CPT/HCPCS: 36415; 71045; 74177; 80048; 80076; 82550; 82962; 83605; 83690; 84145; 85025; 85610; 85730; 87040 ×2; 87086; 87088; 93005; 96360; 96361; 96366; 99284; J7030; Q9967; 81003; 81015; 96365

== ENCOUNTER 2019-03-12 14:28 | Emergency (ER) | payer MEDICARE ==
--- OUTSIDE RECORDS SUMMARY | 2019-03-12 14:35 | XMS REPORT ---
[...] End Status Dosage System Date Date Pravastatin [facility] 76255309213 40 MG Orally Active 1 tablet Sodium Once a day Results No Known Results Summary Purpose eClinicalWorks Submission
--- OUTSIDE RECORDS SUMMARY | 2019-03-12 14:35 | XMS REPORT ---
[...] End Status Dosage System Date Date Clonazepam [facility] 57674283987 0.5 MG Orally Active 1 tablet Three a day Celexa [facility] 79928994893 40 MG Orally Active 1 tablet Once a day Quetiapine [facility] 68287975726 50 MG Orally Lori Active 1 tablet Fumarate Once a day 2017 Citalopram [facility] 09288314427 40 MG Active TAKE 1 TABLET Hydrobromide BY MOUTH EVERY DAY Seroquel [facility] 22895441597 25 MG Orally Active 1 tablet Once a day Lisinopril [facility] 82093707146 20 MG Active TAKE 1 TABLET BY MOUTH EVERY DAY Seroquel [facility] 55524505075 50 MG Orally Active 1 tablet Once a day at bedtime Quetiapine [facility] 96006455594 25 MG Active TAKE 1 TABLET Fumarate AT BEDTIME Pravastatin [facility] 33082007753 40 MG Orally Active 1 tablet Sodium Once a day Triamcinolone [facility] 47965963100 0.5 % Active 1 application Acetonide Externally to affected Twice a day area Lisinopril [place] 73190305175 20 MG Orally Active 1 tablet Once a day Results No Known Results Summary Purpose eClinicalWorks Submission
--- OUTSIDE RECORDS SUMMARY | 2019-03-12 14:35 | XMS REPORT ---
[...] End Status Dosage System Date Date Triamcinolone [facility] 11679062740 0.5 % Active 1 application Acetonide Externally to affected Twice a day area Clonazepam [facility] 66577185271 0.5 MG Orally Active 1 tablet Three a day Pravastatin [facility] 36845870829 40 MG Orally Active 1 tablet Sodium Once a day Seroquel [facility] 98862155549 25 MG Orally Active 1 tablet Once a day Lisinopril [facility] 08175218172 20 MG Active TAKE 1 TABLET BY MOUTH EVERY DAY Lisinopril [facility] 13060482859 20 MG Orally Active 1 tablet Once a day Seroquel [facility] 20311957113 50 MG Orally Active 1 tablet Once a day at bedtime Celexa [facility] 03193176411 40 MG Orally Active 1 tablet Once a day Quetiapine [facility] 45481743365 25 MG Active TAKE 1 TABLET Fumarate AT BEDTIME Results No Known Results Summary Purpose eClinicalWorks Submission
--- OUTSIDE RECORDS SUMMARY | 2019-03-12 14:35 | XMS REPORT ---
[...] End Date Status Dosage System Date Quetiapine [facility] 74463410858 50 MG Orally February 20, Active 1 tablet Fumarate Once a day 2017 Results No Known Results Summary Purpose eClinicalWorks Submission
--- OUTSIDE RECORDS SUMMARY | 2019-03-12 14:35 | XMS REPORT ---
[...] End Status Dosage System Date Date Quetiapine [facility] 14883040652 50 MG Orally Lori Active 1 tablet Fumarate Once a day 2017 Lisinopril [facility] 04621866169 20 MG Orally Active 1 tablet Once a day Pravastatin [facility] 38936494324 40 MG Orally Active 1 tablet Sodium Once a day Clonazepam [facility] 93567967044 0.5 MG Orally Active 1 tablet Three a day Triamcinolone [facility] 70022619649 0.5 % Active 1 application Acetonide Externally to affected Twice a day area Lisinopril [facility] 11549007693 20 MG Active TAKE 1 TABLET BY MOUTH EVERY DAY Celexa [facility] 76157043149 40 MG Orally Active 1 tablet Once a day Seroquel [facility] 17706000371 25 MG Orally Active 1 tablet Once a day Seroquel [facility] 43248007611 50 MG Orally Active 1 tablet Once a day at bedtime Quetiapine [facility] 45095786630 25 MG Active TAKE 1 TABLET Fumarate AT BEDTIME Citalopram [facility] 03898813402 40 MG Active TAKE 1 TABLET Hydrobromide BY MOUTH EVERY DAY Results No Known Results Summary Purpose eClinicalWorks Submission
--- OUTSIDE RECORDS SUMMARY | 2019-03-12 14:35 | XMS REPORT ---
[...] End Status Dosage System Date Date Pravastatin [facility] 33721265208 40 MG Orally Active 1 tablet Sodium Once a day Quetiapine [facility] 26522440779 50 MG Orally February Active 1 tablet Fumarate Once a day 2017 Triamcinolone [facility] 43700132237 0.5 % Active 1 application Acetonide Externally to affected Twice a day area Citalopram [facility] 64966080786 40 MG Active TAKE 1 TABLET Hydrobromide BY MOUTH EVERY DAY Seroquel [facility] 65352070575 50 MG Orally Active 1 tablet Once a day at bedtime Lisinopril ND 50366065849 20 MG Active TAKE 1 TABLET BY MOUTH EVERY DAY Lisinopril ND 25851453777 20 MG Orally Active 1 tablet Once a day Quetiapine [facility] 75169892485 25 MG Active TAKE 1 TABLET Fumarate AT BEDTIME Seroquel [facility] 15430449685 25 MG Orally Active 1 tablet Once a day Augmentin [facility] 02674390881 875-125 MG Jun 30Jun Active 1 tablet Orally every 2017 19, hrs 2017 Celexa [facility] 76770306184 40 MG Orally Active 1 tablet Once a day Zyrtec Allergy [facility] 36177312272 10 MG Orally Jun 30, Active 1 tablet Once a day 2017 Flonase [facility] 13466333150 50 MCG/ACT Jun 30, Active 1 spray in Nasally Once a 2018 each nostril day Clonazepam [facility] 91251032571 0.5 MG Orally Active 1 tablet Three a day Results No Known Results Summary Purpose eClinicalWorks Submission
--- OUTSIDE RECORDS SUMMARY | 2019-03-12 14:36 | XMS REPORT ---
[...] Unspecified osteoarthritis, M19.90 Active unspecified site Assessment Short leg syndrome, left, acquired M21.70 Active Assessment Hemiparesis G81.90 Active Assessment Weakness of left lower extremity R29.898 Active Assessment Need for assistance due to unsteady R26.89 Active gait Assessment Mixed hyperlipidemia E78.2 Active Assessment Benign essential HTN I10 Active Assessment Renal insufficiency N28.9 Active Assessment Depression with anxiety F41.8 Active Problem Mixed hyperlipidemia E78.2 Active Medications Medication Code Code Instructions Start End Status Dosage System Date Date Clonazepam [facility] 97325910641 0.5 MG Orally Active 1 tablet Three a day Celexa [facility] 66920094056 40 MG Orally Active 1 tablet Once a day Flonase [facility] 32968070144 50 MCG/ACT Jun 30, Active 1 spray in Nasally Once a 2018 each nostril day Lisinopril [facility] 95341637125 20 MG Active TAKE 1 TABLET BY MOUTH EVERY DAY Quetiapine [facility] 00439641862 25 MG Active TAKE 1 TABLET Fumarate AT BEDTIME Citalopram [facility] 28085137501 40 MG Active TAKE 1 TABLET Hydrobromide BY MOUTH EVERY DAY Zyrtec Allergy [facility] 74912883488 10 MG Orally Jun 30, Active 1 tablet Once a day 2017 Mupirocin [facility] 36387746577 2 % Externally Jul 31Aug Active 1 application two times a day 2018 08, to affected 2017 area Pravastatin [facility] 73855836677 40 MG Orally Active 1 tablet Sodium Once a day Seroquel [facility] 55508323993 100 MG Orally Active 1 tablet Once a day at bedtime Quetiapine [facility] 77813006995 50 MG Orally Lori Active 1 tablet Fumarate Once a day 2017 Seroquel [facility] 96732599999 25 MG Orally Active 1 tablet Once a day Triamcinolone [facility] 74102319338 0.5 % Active 1 application Acetonide Externally to affected Twice a day area Lisinopril [facility] 49212350502 20 MG Orally Active 1 tablet Once a day Results No Known Results Summary Purpose eClinicalWorks Submission
--- OUTSIDE RECORDS SUMMARY | 2019-03-12 14:36 | XMS REPORT ---
:1965 Author Organization eClinicalWorks Care Team Providers Name Role Phone Arteaga, Na Provider Role Unavailable Allergies No Known Allergies Problems Problem Type Condition Code Onset Dates Condition Status Problem Depression with anxiety F41.8 Active Problem Cerumen impaction H61.20 Active Problem Hemiparesis G81.90 Active Assessment Depression with anxiety [...] Unspecified osteoarthritis, M19.90 Active unspecified site Medications Medication Code System Code Instructions Start Date End Date Status Dosage Seroquel [facility] 51556057280 100 MG Orally Active 1 tablet Once a day at bedtime Results No Known Results Summary Purpose eClinicalWorks Submission
--- OUTSIDE RECORDS SUMMARY | 2019-03-12 14:36 | XMS REPORT ---
[...] End Status Dosage System Date Date Quetiapine [facility] 98789700184 50 MG Orally February Active 1 tablet Fumarate Once a day 2017 Citalopram [facility] 69392888940 40 MG Active TAKE 1 TABLET Hydrobromide BY MOUTH EVERY DAY Clonazepam ND 66402792992 0.5 MG Orally Active 1 tablet Three a day Celexa ND 25045988248 40 MG Orally Active 1 tablet Once a day Seroquel ND 61284331332 25 MG Orally Active 1 tablet Once a day Zyrtec Allergy ND 42343341498 10 MG Orally Jun 30, Active 1 tablet Once a day 2017 Flonase [facility] 89689702958 50 MCG/ACT Jun 30, Active 1 spray in Nasally Once a 2018 each nostril day Lisinopril [facility] 39291607641 20 MG Orally Active 1 tablet Once a day Pravastatin [facility] 77270300415 40 MG Orally Active 1 tablet Sodium Once a day Seroquel [facility] 50535769401 100 MG Orally Active 1 tablet Once a day at bedtime Triamcinolone [facility] 92016892032 0.5 % Active 1 application Acetonide Externally to affected Twice a day area Quetiapine [facility] 15991743744 25 MG Active TAKE 1 TABLET Fumarate AT BEDTIME Lisinopril [facility] 14545515661 20 MG Active TAKE 1 TABLET BY MOUTH EVERY DAY Results No Known Results Summary Purpose eClinicalWorks Submission
--- OUTSIDE RECORDS SUMMARY | 2019-03-12 14:36 | XMS REPORT ---
:1965 Author Organization eClinicalWorks Care Team Providers Name Role Phone Arteaga, Na Provider Role Unavailable Allergies, Adverse Reactions, Alerts Substance Reaction Event Type N.K.D.A. Info Not Available Non Drug Allergy Problems Problem Type Condition Code Onset Dates Condition Status Problem Depression with anxiety F41.8 Active Problem Cerumen impaction H61.20 Active Problem Hemiparesis G81.90 Active Assessment Anxiety F41.9 Active Problem Mixed hyperlipidemia E78.2 Active Problem Need for assistance due to unsteady R26.89 Active gait Problem Short leg syndrome, left, acquired M21.70 Active Problem Weakness of left lower extremity R29.898 Active Problem Anxiety F41.9 Active Problem Benign essential HTN I10 Active Problem Pressure ulcer of unspecified heel, L89.602 Active stage 2 Problem Unspecified osteoarthritis, M19.90 Active unspecified site Medications Medication Code Code Instructions Start End Status Dosage System Date Date Seroquel [facility] 57256859806 100 MG Orally Active 1 tablet Once a day at bedtime Clonazepam [facility] 62420999258 0.5 MG Orally Active 1 tablet Three a day PRN anxiety Flonase [facility] 87326753413 50 MCG/ACT Jun 30, Active 1 spray in Nasally Once a 2018 each nostril day Lisinopril [facility] 50545455776 20 MG Active TAKE 1 TABLET BY MOUTH EVERY DAY Pravastatin ND 99363661775 40 MG Orally Active 1 tablet Sodium Once a day Triamcinolone ND 76275014264 0.5 % Active 1 application Acetonide Externally to affected Twice a day area Seroquel [facility] 37781869458 25 MG Orally Active 1 tablet Once a day Zyrtec Allergy ND 00792212514 10 MG Orally Jun 30, Active 1 tablet Once a day 2017 Citalopram ND 92688433931 40 MG Active TAKE 1 TABLET Hydrobromide BY MOUTH EVERY DAY Quetiapine ND 84659552307 50 MG Orally February Active 1 tablet Fumarate Once a day 2017 Lisinopril [facility] 69257117065 20 MG Orally Active 1 tablet Once a day Celexa [facility] 76788119567 40 MG Orally Active 1 tablet Once a day Quetiapine [facility] 35442322053 25 MG Active TAKE 1 TABLET Fumarate AT BEDTIME Results No Known Results Summary Purpose eClinicalWorks Submission
--- OUTSIDE RECORDS SUMMARY | 2019-03-12 14:36 | XMS REPORT ---
[...] due to unsteady R26.89 Active gait Assessment History of colon polyps Z86.010 Active Problem Short leg syndrome, left, acquired M21.70 Active Assessment Short leg syndrome, left, acquired M21.70 Active Assessment Encounter for screening colonoscopy Z12.11 Active Problem Weakness of left lower extremity R29.898 Active Problem Anxiety F41.9 Active Problem Benign essential HTN I10 Active Problem Pressure ulcer of unspecified heel, L89.602 Active stage 2 Problem Unspecified osteoarthritis, M19.90 Active unspecified site Assessment Hemiparesis G81.90 Active Assessment Renal insufficiency N28.9 Active Assessment Weakness of left lower extremity R29.898 Active Assessment Need for assistance due to unsteady R26.89 Active gait Assessment Benign essential HTN I10 Active Assessment Encounter for general adult medical Z00.00 Active examination without abnormal findings Assessment Depression with anxiety F41.8 Active Assessment Mixed hyperlipidemia E78.2 Active Problem Mixed hyperlipidemia E78.2 Active Medications Medication Code Code Instructions Start End Status Dosage System Date Date Flonase [facility] 05932581298 50 MCG/ACT Jun 30, Active 1 spray in Nasally Once a 2018 each nostril day Seroquel [facility] 48805355754 100 MG Orally Active 1 tablet Once a day at bedtime Pravastatin ND 43229739457 40 MG Orally Active 1 tablet Sodium Once a day Triamcinolone [facility] 94850503545 0.5 % Active 1 application Acetonide Externally to affected Twice a day area Zyrtec Allergy [facility] 00047845718 10 MG Orally Jun 30, Active 1 tablet Once a day 2018 Quetiapine [facility] 32603693036 50 MG Orally Lori Active 1 tablet Fumarate Once a day 2017 Clonazepam [facility] 44161264349 0.5 MG Orally Active 1 tablet PRN anxiety Three times a day Lisinopril [facility] 94578890799 20 MG Orally Active 1 tablet Once a day Celexa [facility] 47292074183 40 MG Orally Active 1 tablet Once a day Results No Known Results Summary Purpose eClinicalWorks Submission
--- OUTSIDE RECORDS SUMMARY | 2019-03-12 14:36 | XMS REPORT ---
[...] End Status Dosage System Date Date Clonazepam [facility] 53926107954 0.5 MG Orally Active 1 tablet PRN anxiety Three times a day Triamcinolone [facility] 56781239659 0.5 % Active 1 application Acetonide Externally to affected Twice a day area Flonase [facility] 50611818507 50 MCG/ACT Jun 30, Active 1 spray in Nasally Once a 2018 each nostril day Lisinopril [facility] 90715341444 20 MG Active TAKE 1 TABLET BY MOUTH EVERY DAY Celexa [facility] 42981136814 40 MG Orally Active 1 tablet Once a day Seroquel [facility] 77760381586 25 MG Orally Active 1 tablet Once a day Quetiapine [facility] 86690849584 25 MG Active TAKE 1 TABLET Fumarate AT BEDTIME Zyrtec Allergy [facility] 82424478804 10 MG Orally Jun 30, Active 1 tablet Once a day 2017 Citalopram [facility] 47745515007 40 MG Active TAKE 1 TABLET Hydrobromide BY MOUTH EVERY DAY Lisinopril [facility] 43516743208 20 MG Orally Active 1 tablet Once a day Seroquel [facility] 53691282260 100 MG Orally Active 1 tablet Once a day at bedtime Pravastatin [facility] 55660227828 40 MG Orally Active 1 tablet Sodium Once a day Quetiapine [facility] 76447554124 50 MG Orally February Active 1 tablet Fumarate Once a day 2017 Results No Known Results Summary Purpose eClinicalWorks Submission
[2019-03-12] MEDS ORDERED: CYCLOBENZAPRINE 10 MG TAB ONE (14:57)
[2019-03-12] MEDS ORDERED: HYDROCODONE/APAP 10/325 TAB ONE (14:58)
[2019-03-12] MEDS ORDERED: IBUPROFEN 400 MG TAB ONE (14:58)
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
[2019-03-12] MEDS ORDERED: KETOROLAC 30 MG/ML INJ ONE (15:44)
[2019-03-12 15:52] VITALS: BP 111/70; TEMP 97.8; O2SAT 99
== END 2019-03-12 15:37 | disposition home or self-care (01) ==
LOC: ER 14:28
DX: M54.5 Low back pain (principal); I10 Essential (primary) hypertension; F17.210 Nicotine dependence, cigarettes, uncomplicated
CPT/HCPCS: 96372; 99283

== ENCOUNTER 2019-03-29 12:10 | Emergency (ER) | payer MEDICARE ==
--- OUTSIDE RECORDS SUMMARY | 2019-03-29 12:17 | XMS REPORT ---
[...] End Date Status Dosage System Date Quetiapine [facility] 24784267209 50 MG Orally February 20, Active 1 tablet Fumarate Once a day 2017 Results No Known Results Summary Purpose eClinicalWorks Submission
--- OUTSIDE RECORDS SUMMARY | 2019-03-29 12:17 | XMS REPORT ---
[...] End Status Dosage System Date Date Quetiapine [facility] 76691971449 50 MG Orally Lori Active 1 tablet Fumarate Once a day [address] [facility] 52694523234 20 MG Orally Active 1 tablet Once a day Pravastatin [facility] 59892558989 40 MG Orally Active 1 tablet Sodium Once a day Clonazepam [facility] 25281112828 0.5 MG Orally Active 1 tablet Three a day Triamcinolone [facility] 30670912469 0.5 % Active 1 application Acetonide Externally to affected Twice a day area Lisinopril [facility] 01838812298 20 MG Active TAKE 1 TABLET BY MOUTH EVERY DAY Celexa [facility] 16857581060 40 MG Orally Active 1 tablet Once a day Seroquel [facility] 65048902405 25 MG Orally Active 1 tablet Once a day Seroquel [facility] 80009266367 50 MG Orally Active 1 tablet Once a day at bedtime Quetiapine [facility] 87375986609 25 MG Active TAKE 1 TABLET Fumarate AT BEDTIME Citalopram [facility] 50321679718 40 MG Active TAKE 1 TABLET Hydrobromide BY MOUTH EVERY DAY Results No Known Results Summary Purpose eClinicalWorks Submission
--- OUTSIDE RECORDS SUMMARY | 2019-03-29 12:17 | XMS REPORT ---
[...] Date Date Quetiapine [facility] 27466431021 50 MG Orally February Active 1 tablet Fumarate Once a day 2017 Citalopram [facility] 18200617497 40 MG Active TAKE 1 TABLET Hydrobromide BY MOUTH EVERY DAY Clonazepam ND 34861586518 0.5 MG Orally Active 1 tablet Three a day Celexa ND 55556573176 40 MG Orally Active 1 tablet Once a day Seroquel ND 85767982711 25 MG Orally Active 1 tablet Once a day Zyrtec Allergy ND 42228451201 10 MG Orally Jun 30, Active 1 tablet Once a day 2017 Flonase [facility] 39032151697 50 MCG/ACT Jun 30, Active 1 spray in Nasally Once a 2018 each nostril day Lisinopril [facility] 58665158210 20 MG Orally Active 1 tablet Once a day Pravastatin [facility] 27410233663 40 MG Orally Active 1 tablet Sodium Once a day Seroquel [facility] 95870794221 100 MG Orally Active 1 tablet Once a day at bedtime Triamcinolone [facility] 88324943835 0.5 % Active 1 application Acetonide Externally to affected Twice a day area Quetiapine [facility] 98733046608 25 MG Active TAKE 1 TABLET Fumarate AT BEDTIME Lisinopril [facility] 90695028974 20 MG Active TAKE 1 TABLET BY MOUTH EVERY DAY Results No Known Results Summary Purpose eClinicalWorks Submission
--- OUTSIDE RECORDS SUMMARY | 2019-03-29 12:17 | XMS REPORT ---
[...] End Status Dosage System Date Date Clonazepam [facility] 09423738479 0.5 MG Orally Active 1 tablet Three a day Celexa [facility] 65013066999 40 MG Orally Active 1 tablet Once a day Quetiapine [facility] 84989291276 50 MG Orally Lori Active 1 tablet Fumarate Once a day 2017 Citalopram [facility] 20736791572 40 MG Active TAKE 1 TABLET Hydrobromide BY MOUTH EVERY DAY Seroquel [facility] 54469184534 25 MG Orally Active 1 tablet Once a day Lisinopril [facility] 35952909187 20 MG Active TAKE 1 TABLET BY MOUTH EVERY DAY Seroquel [facility] 32401675142 50 MG Orally Active 1 tablet Once a day at bedtime Quetiapine [facility] 46250389346 25 MG Active TAKE 1 TABLET Fumarate AT BEDTIME Pravastatin [facility] 71739364925 40 MG Orally Active 1 tablet Sodium Once a day Triamcinolone [facility] 87818660176 0.5 % Active 1 application Acetonide Externally to affected Twice a day area Lisinopril ND 56780715312 20 MG Orally Active 1 tablet Once a day Results No Known Results Summary Purpose eClinicalWorks Submission
--- OUTSIDE RECORDS SUMMARY | 2019-03-29 12:17 | XMS REPORT ---
[...] End Status Dosage System Date Date Seroquel [facility] 38414344708 100 MG Orally Active 1 tablet Once a day at bedtime Clonazepam [facility] 62978093737 0.5 MG Orally Active 1 tablet Three a day PRN anxiety Flonase [facility] 87787145933 50 MCG/ACT Jun 30, Active 1 spray in Nasally Once a 2018 each nostril day Lisinopril [facility] 39005104274 20 MG Active TAKE 1 TABLET BY MOUTH EVERY DAY Pravastatin ND 18168616869 40 MG Orally Active 1 tablet Sodium Once a day Triamcinolone ND 34946950341 0.5 % Active 1 application Acetonide Externally to affected Twice a day area Seroquel [facility] 00395616094 25 MG Orally Active 1 tablet Once a day Zyrtec Allergy ND 10944271862 10 MG Orally Jun 30, Active 1 tablet Once a day 2017 Citalopram ND 86509469299 40 MG Active TAKE 1 TABLET Hydrobromide BY MOUTH EVERY DAY Quetiapine ND 27756584137 50 MG Orally February Active 1 tablet Fumarate Once a day 2017 Lisinopril [facility] 10651144758 20 MG Orally Active 1 tablet Once a day Celexa [facility] 79925788172 40 MG Orally Active 1 tablet Once a day Quetiapine [facility] 64175820623 25 MG Active TAKE 1 TABLET Fumarate AT BEDTIME Results No Known Results Summary Purpose eClinicalWorks Submission
--- OUTSIDE RECORDS SUMMARY | 2019-03-29 12:17 | XMS REPORT ---
[...] End Status Dosage System Date Date Pravastatin [facility] 56452210088 40 MG Orally Active 1 tablet Sodium Once a day Results No Known Results Summary Purpose eClinicalWorks Submission
--- OUTSIDE RECORDS SUMMARY | 2019-03-29 12:17 | XMS REPORT ---
[...] End Status Dosage System Date Date Clonazepam [facility] 82084029504 0.5 MG Orally Active 1 tablet Three a day Celexa [facility] 75552290467 40 MG Orally Active 1 tablet Once a day Flonase [facility] 88268285654 50 MCG/ACT Jun 30, Active 1 spray in Nasally Once a 2018 each nostril day Lisinopril [facility] 42851242941 20 MG Active TAKE 1 TABLET BY MOUTH EVERY DAY Quetiapine [facility] 61097349756 25 MG Active TAKE 1 TABLET Fumarate AT BEDTIME Citalopram [facility] 66504023735 40 MG Active TAKE 1 TABLET Hydrobromide BY MOUTH EVERY DAY Zyrtec Allergy [facility] 55856405006 10 MG Orally Jun 30, Active 1 tablet Once a day 2017 Mupirocin [facility] 22355254027 2 % Externally Jul 31Aug Active 1 application two times a day 2018 08, to affected 2017 area Pravastatin [facility] 95319413856 40 MG Orally Active 1 tablet Sodium Once a day Seroquel [facility] 98139012731 100 MG Orally Active 1 tablet Once a day at bedtime Quetiapine [facility] 24897221271 50 MG Orally Lori Active 1 tablet Fumarate Once a day 2017 Seroquel [facility] 94510480580 25 MG Orally Active 1 tablet Once a day Triamcinolone [facility] 34832007036 0.5 % Active 1 application Acetonide Externally to affected Twice a day area Lisinopril [facility] 51708397948 20 MG Orally Active 1 tablet Once a day Results No Known Results Summary Purpose eClinicalWorks Submission
--- OUTSIDE RECORDS SUMMARY | 2019-03-29 12:17 | XMS REPORT ---
[...] Start Date End Date Status Dosage Seroquel [facility] 69822281009 100 MG Orally Active 1 tablet Once a day at bedtime Results No Known Results Summary Purpose eClinicalWorks Submission
--- OUTSIDE RECORDS SUMMARY | 2019-03-29 12:17 | XMS REPORT ---
[...] End Status Dosage System Date Date Triamcinolone [facility] 15592573239 0.5 % Active 1 application Acetonide Externally to affected Twice a day area Clonazepam [facility] 12081193452 0.5 MG Orally Active 1 tablet Three a day Pravastatin [facility] 83203241687 40 MG Orally Active 1 tablet Sodium Once a day Seroquel [facility] 43800095108 25 MG Orally Active 1 tablet Once a day Lisinopril [facility] 91375235096 20 MG Active TAKE 1 TABLET BY MOUTH EVERY DAY Lisinopril [facility] 82322019967 20 MG Orally Active 1 tablet Once a day Seroquel [facility] 89391305806 50 MG Orally Active 1 tablet Once a day at bedtime Celexa [facility] 31599752139 40 MG Orally Active 1 tablet Once a day Quetiapine [facility] 86789126810 25 MG Active TAKE 1 TABLET Fumarate AT BEDTIME Results No Known Results Summary Purpose eClinicalWorks Submission
--- OUTSIDE RECORDS SUMMARY | 2019-03-29 12:17 | XMS REPORT ---
[...] Status Dosage System Date Date Pravastatin [facility] 40820781608 40 MG Orally Active 1 tablet Sodium Once a day Quetiapine [facility] 01247534667 50 MG Orally February Active 1 tablet Fumarate Once a day 2017 Triamcinolone [facility] 71650331825 0.5 % Active 1 application Acetonide Externally to affected Twice a day area Citalopram [facility] 38979871100 40 MG Active TAKE 1 TABLET Hydrobromide BY MOUTH EVERY DAY Seroquel [facility] 22844298536 50 MG Orally Active 1 tablet Once a day at bedtime Lisinopril ND 17431823675 20 MG Active TAKE 1 TABLET BY MOUTH EVERY DAY Lisinopril ND 68827490472 20 MG Orally Active 1 tablet Once a day Quetiapine [facility] 19302097266 25 MG Active TAKE 1 TABLET Fumarate AT BEDTIME Seroquel [facility] 11897617023 25 MG Orally Active 1 tablet Once a day Augmentin [facility] 76196794592 875-125 MG Jun 30Jun Active 1 tablet Orally every 2017 19, hrs 2017 Celexa [facility] 64609804336 40 MG Orally Active 1 tablet Once a day Zyrtec Allergy [facility] 17852949938 10 MG Orally Jun 30, Active 1 tablet Once a day 2017 Flonase [facility] 90402145018 50 MCG/ACT Jun 30, Active 1 spray in Nasally Once a 2018 each nostril day Clonazepam [facility] 82390574115 0.5 MG Orally Active 1 tablet Three a day Results No Known Results Summary Purpose eClinicalWorks Submission
--- OUTSIDE RECORDS SUMMARY | 2019-03-29 12:18 | XMS REPORT ---
[...] End Status Dosage System Date Date Clonazepam [facility] 65922922509 0.5 MG Orally Active 1 tablet PRN anxiety Three times a day Triamcinolone [facility] 62326164259 0.5 % Active 1 application Acetonide Externally to affected Twice a day area Flonase [facility] 71540204757 50 MCG/ACT Jun 30, Active 1 spray in Nasally Once a 2018 each nostril day Lisinopril [facility] 02392720964 20 MG Active TAKE 1 TABLET BY MOUTH EVERY DAY Celexa [facility] 42545011156 40 MG Orally Active 1 tablet Once a day Seroquel [facility] 46809582653 25 MG Orally Active 1 tablet Once a day Quetiapine [facility] 54315918046 25 MG Active TAKE 1 TABLET Fumarate AT BEDTIME Zyrtec Allergy [facility] 66960531939 10 MG Orally Jun 30, Active 1 tablet Once a day 2017 Citalopram [facility] 51156067918 40 MG Active TAKE 1 TABLET Hydrobromide BY MOUTH EVERY DAY Lisinopril [facility] 68241076618 20 MG Orally Active 1 tablet Once a day Seroquel [facility] 24603732491 100 MG Orally Active 1 tablet Once a day at bedtime Pravastatin [facility] 42501762723 40 MG Orally Active 1 tablet Sodium Once a day Quetiapine [facility] 70731224766 50 MG Orally February Active 1 tablet Fumarate Once a day 2017 Results No Known Results Summary Purpose eClinicalWorks Submission
--- OUTSIDE RECORDS SUMMARY | 2019-03-29 12:18 | XMS REPORT ---
[...] End Status Dosage System Date Date Flonase [facility] 02319710253 50 MCG/ACT Jun 30, Active 1 spray in Nasally Once a 2018 each nostril day Seroquel [facility] 2] 93298248900 100 MG Orally Active 1 tablet Once a day at bedtime Pravastatin ND 72938543924 40 MG Orally Active 1 tablet Sodium Once a day Triamcinolone [facility]NOTE 2] 08175269189 0.5 % Active 1 application Acetonide Externally to affected Twice a day area Zyrtec Allergy [facility] 2] 65681767653 10 MG Orally Jun 30, Active 1 tablet Once a day 2018 Quetiapine [facility] 2] 64767439383 50 MG Orally Lori Active 1 tablet Fumarate Once a day 2017 Clonazepam [facility]NOTE 2] 05307250325 0.5 MG Orally Active 1 tablet PRN anxiety Three times a day Lisinopril [facility] 2] 32856648673 20 MG Orally Active 1 tablet Once a day Celexa [facility] 2] 90939315615 40 MG Orally Active 1 tablet Once a day Results No Known Results Summary Purpose eClinicalWorks Submission
[2019-03-29 13:02] LABS: Absolute Lymphocytes (CBC) 1.6 K/uL (0.7-4.9); Basophils % 0.6 % (0-1.3); Eosinophils % 3.5 % (0-4.4); Hematocrit 40.3 % (39.6-49.0); Monocytes % 10.1 % (3.3-12.3); RBC Red Blood Cell Count 4.28 M/uL (4.33-5.43)
[2019-03-29 13:45] LABS: Albumin 3.5 g/dL (3.4-5.0); Bilirubin Direct 0.1 mg/dL (0-0.2); Bilirubin Total 0.4 mg/dL (0.2-1.0); Potassium 3.6 mmol/L (3.5-5.1); Protein, Total 7.3 g/dL (6.4-8.2)
--- NOTE | 2019-03-29 14:27 | RAD REPORT ---
EXAM DESCRIPTION: US - Extremity Venous Uni Ltd - 03/29/2019 1:53 pm CLINICAL HISTORY: Left leg pain and swelling COMPARISON: None. TECHNIQUE: Real-time sonographic evaluation of the left lower extremity deep venous system was perfo rmed. FINDINGS: Normal compressibility, flow augmentation, phasic flow and spontaneous flow are identified in the left lower extremity common femoral, superficial femoral, popliteal and posterior tibial vein s. No intraluminal filling defects seen. IMPRESSION: No DVT in the left lower extremity.
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
[2019-03-29] MEDS ORDERED: IBUPROFEN 200 MG TAB PO ONE (15:25)
[2019-03-29 15:53] VITALS: BP 112/66; TEMP 99.1; O2SAT 100
== END 2019-03-29 15:49 | disposition home or self-care (01) ==
LOC: ER 12:10
DX: R53.1 Weakness (principal); R19.7 Diarrhea, unspecified
CPT/HCPCS: 36415; 80048; 80076; 83690; 85025; 93971; 99284

== ENCOUNTER 2019-09-09 11:50 | Emergency (ER) | payer MEDICARE ==
--- OUTSIDE RECORDS SUMMARY | 2019-09-09 11:52 | XMS REPORT ---
:1965 Author Organization eClinical[employer] Care Team Providers Name Role Phone Arteaga, Na Provider Role Unavailable Allergies, Adverse Reactions, Alerts Substance Reaction Event Type N.K.D.A. Info Not Available Non Drug Allergy Problems Problem Type Condition Code Onset Dates Condition Status Problem Hemiparesis G81.90 Active Problem Benign essential HTN I10 Active Problem Cerumen impaction H61.20 Active Problem Need for assistance due to unsteady R26.89 Active gait Assessment Weakness of left lower extremity R29.898 Active Problem Short leg syndrome, left, acquired M21.70 Active Assessment History of colon polyps Z86.010 Active Assessment Short leg syndrome, left, acquired M21.70 Active Problem Tinnitus, right H93.11 Active Problem Unspecified osteoarthritis, M19.90 Active unspecified site Problem Anxiety F41.9 Active Problem Weakness of left lower extremity R29.898 Active Problem Pressure ulcer of unspecified heel, L89.602 Active stage 2 Assessment Renal insufficiency N28.9 Active Assessment Depression with anxiety F41.8 Active Assessment Need for assistance due to unsteady R26.89 Active gait Assessment Hemiparesis G81.90 Active Assessment Tinnitus, right H93.11 Active Assessment Mixed hyperlipidemia E78.2 Active Problem Mixed hyperlipidemia E78.2 Active Assessment Encounter for screening colonoscopy Z12.11 Active Assessment Benign essential HTN I10 Active Problem Depression with anxiety F41.8 Active Medications Medication Code Code Instructions Start End Status Dosage System Date Date Lisinopril ND 16314855544 20 MG Orally Active 1 tablet Once a day Ipratropium-Albu ND 78420881846 0.5-2.5 (3) Active 3 ml terol MG/3ML Inhalation every 6 hrs Seroquel ND 16358205071 100 MG Orally Active 1 tablet Once a day at bedtime Zyrtec Allergy ND 21456832950 10 MG Orally Jun 30, Active 1 tablet Once a day 2017 Quetiapine ND 72751197322 50 MG Orally February Active 1 tablet Fumarate Once a day 2017 Pravastatin [facility] 30878244957 40 MG Orally Active 1 tablet Sodium Once a day Triamcinolone [facility] 43684725006 0.5 % Active 1 application Acetonide Externally to affected Twice a day area Clonazepam [facility] 88630882804 0.5 MG Orally Active 1 tablet PRN anxiety Three times a day Celexa [facility] 24300397216 40 MG Orally Active 1 tablet Once a day Flonase [facility] 31566878887 50 MCG/ACT Jun 30, Active 1 spray in Nasally Once a 2018 each nostril day Citalopram [facility] 72259459105 20 MG Orally Active 1 tablet Hydrobromide Once a day Doxepin HCl [facility] 12558046734 10 MG Orally Active 1 capsule at Once a day bedtime Results No Known Results Summary Purpose eClinicalWorks Submission
--- OUTSIDE RECORDS SUMMARY | 2019-09-09 11:52 | XMS REPORT ---
:1965 Author Organization [employer]Clinical[employer] Care Team Providers Name Role Phone Arteaga, Na Provider Role Unavailable Allergies, Adverse Reactions, Alerts Substance Reaction Event Type N.K.D.A. Info Not Available Non Drug Allergy Problems Problem Type Condition Code Onset Dates Condition Status Problem Cerumen impaction H61.20 Active Problem Anxiety F41.9 Active Problem Benign essential HTN I10 Active Problem Tinnitus, right H93.11 Active Assessment Short leg syndrome, left, acquired M21.70 Active Problem Need for assistance due to unsteady R26.89 Active gait Assessment Need for assistance due to unsteady R26.89 Active gait Problem Primary insomnia F51.01 Active Problem Pressure ulcer of unspecified heel, L89.602 Active stage 2 Problem Unspecified osteoarthritis, M19.90 Active unspecified site Problem Short leg syndrome, left, acquired M21.70 Active Problem Weakness of left lower extremity R29.898 Active Assessment Renal insufficiency N28.9 Active Assessment Primary insomnia F51.01 Active Assessment Weakness of left lower extremity R29.898 Active Assessment Hemiparesis G81.90 Active Problem Mixed hyperlipidemia E78.2 Active Assessment Depression with anxiety F41.8 Active Problem Depression with anxiety F41.8 Active Assessment Mixed hyperlipidemia E78.2 Active Problem Hemiparesis G81.90 Active Medications Medication Code Code Instructions Start End Status Dosage System Date Date Doxepin HCl [facility] 11113030225 10 MG Orally Active 1 capsule at Once a day bedtime Quetiapine ND 58167098161 50 MG Orally Lori Active 1 tablet Fumarate Once a day 2017 Lisinopril ND 00255754110 20 MG Orally Active 1 tablet Once a day Clonazepam ND 71800067029 0.5 MG Orally Active 1 tablet PRN anxiety Three times a day Lisinopril [facility] 03989431608 20 MG Orally Active 1 tablet Once a day Ativan ND 39423763414 0.5 MG Orally Active 1 tablet as every 6 hrs needed Zyrtec Allergy [facility] 47012011642 10 MG Orally Oct 12, Active 1 tablet Once a day 2017 Citalopram [facility] 92156365945 20 MG Orally Active 1 tablet Hydrobromide Once a day Lipitor [facility] 28097700450 10 MG Orally Active 1 tablet Once a day Seroquel [facility] 04973213153 100 MG Orally Active 1 tablet Once a day at bedtime Pravastatin [facility] 13488495294 40 MG Orally Active 1 tablet Sodium Once a day Celexa [facility] 36566179776 40 MG Orally Active 1 tablet Once a day Pravastatin [facility] 95067128012 40 MG Orally Inactive 1 tablet Sodium Once a day Flonase [facility] 02140197219 50 MCG/ACT Jun 30, Active 1 spray in Nasally Once a 2018 each nostril day Triamcinolone [facility] 30755693326 0.5 % Active 1 application Acetonide Externally to affected Twice a day area Ipratropium-Albu [facility] 12332144975 0.5-2.5 (3) Active 3 ml terol MG/3ML Inhalation every 6 hrs Results No Known Results Summary Purpose eClinicalWorks Submission
--- OUTSIDE RECORDS SUMMARY | 2019-09-09 11:52 | XMS REPORT ---
:1965 [facility] Address [address] [place] [place] [address] Care Team Providers Name Role Phone DR AMBROSIO GARNER Unavailable Unavailable Problems This patient has no known problems. Allergies, Adverse Reactions, Alerts This patient has no known allergies or adverse reactions. Medications This patient has no known medications. Encounters Start End Encounter Admission Attending Care Care Encounter Date/Time Date/Time Type Type Clinicians Facility Department ID 2019-08-10 2019-08-18 Inpatient E PASCUAL [facility] [id number] 20:44:00 15:00:00 AMBROSIO Results Test Description Test Time Test Comments Text Results Atomic Results Result Comments GLUCOMETER GLUCOSE- LAB USE ONLY 2019-08-15 17:16:00 Test Item Value Reference Range Comments GLUCOMETER (test code=GMG) 116 mg/dL 70-100 CLEANED METERMeter ID: [id number]: [id number] TANESHA LEES GLUCOMETER GLUCOSE- LAB USE [id number] 07:52:00 Test Item Value Reference Range Comments GLUCOMETER (test code=GMG) 89 mg/dL 70-100 CLEANED METERMeter ID: [id number]: [id number] ROXANNE ALLISON [id number] 22:37:00 Test Item Value Reference Range Comments FOLATE (test code=A75) 33.1 ng/mL 3.1-17.5 THYROID PANEL/SCREEN (TSH)2019-08-10 22:32:00 Test Item Value Reference Range Comments TSH (test code=A57) 1.480 uIU/mL 0.358-3.740 LIPID [id number] 22:17:00 Test Item Value Reference Range Comments CHOLESTROL (test code=44A) 183 mg/dL 140-200 TRIGLYCERI (test code=42B) 139 mg/dL <=149 HDL (test code=83D) 41.0 mg/dL 40.0-60.0 LDL (test code=34B) 115 mg/dL <=99 CHL/HDL (test code=CHR) 4.5 0.0-3.4 [id number] 22:17:00 Test Item Value Reference Range Comments PREALBUMIN (test code=08E) 28 mg/dL 18-38 [id number] 21:57:00 Test Item Value Reference Range Comments MAGNESIUM (test code=48A) 2.2 mg/dL 1.8-2.4 COMPREHENSIVE METABOLIC [id number] 18:16:00 Test Item Value Reference Range Comments GLUCOSE (test code=06D) 92 mg/dL 75-100 SODIUM (test code=01A) 138 mmol/L 136-145 POTASSIUM (test code=01B) 4.1 mmol/L 3.6-5.1 CHLORIDE (test code=04A) 104 mmol/L 98-107 CO2 (test code=02A) 30 mmol/L 22-32 ANION GAP (test code=ANG) 8.1 mmol/L BUN (test code=05D) 22 mg/dL 7-18 CREATININE (test code=03E) 1.3 mg/dL 0.7-1.3 BUN/CREA (test code=BCR) 18 12-20 CALCIUM (test code=09D) 9.1 mg/dL 8.3-9.5 BILI TOTAL (test code=11A) 0.3 mg/dL 0.2-1.0 PROTEIN (test code=07D) 8.1 g/dL 6.4-8.2 ALBUMIN (test code=08D) 3.9 g/dL 3.5-4.8 GLOBULIN (test code=GLB) 4.2 g/dL 1.5-3.8 ALB/GLOB (test code=AGRR) 0.9 1.0-2.6 ALK PHOS (test code=35A) 64 IU/L 42-121 AST (test code=30A) 39 IU/L <=42 ALT (test code=31A) 47 IU/L <=78 [id number] 18:16:00 Test Item Value Reference Range Comments ACETAMINPH (test code=94M) <2.0 ug/mL 10.0-30.0 ALCOHOL BLOOD (ETOH)2019-08-10 18:15:00 Test Item Value Reference Range Comments ETOH (test code=HALC) ETHANOL The result is to be used only for medical purposes ALCOHOL (test code=56A) <10 mg/dL <=10 PRO TIME AND [id number] 18:14:00 Test Item Value Reference Range Comments PT (test code=TT) 10.7 s 9.8-13.6 INR (test code=INR) 0.9 INRH (test code=INRH) SUGGESTED THERAPEUTIC RANGE FOR INR: 2.5 - 3.5 For Patients with Prosthetic Valves or Patients with recurrent Thromboembolic Events 2.0 - 3.0 For Most Other Applications PTT (test code=PTT) 29.8 s 20.2-38.0 PTTH (test code=PTTH) To monitor the effectiveness of heparin, we offer the Anti-Xa (Heparin Assay). It can be used for either unfractionated or LMW Heparin. Order Code is ANTI-XA CARDIAC [id number] 18:14:00 Test Item Value Reference Range Comments TROPONIN I (test code=A84) <0.015 ng/mL 0.000-0.045 AMMONIA [id number] 18:10:00 Test Item Value Reference Range Comments AMMONIA (test code=54A) 21 umol/L 11-32 [id number] 18:10:00 Test Item Value Reference Range Comments SALICYLATE (test code=94B) 2.7 mg/dL 2.8-20.0 XR CHEST 1 VIEW [id number] 18:05:16LOCATION: [id number]: 54-year-old male, psychiatric workup.COMMENT: A frontal chest radiograph was obtained at the bedside at 5:57 p.m. The lungs are clear and well-aerated. The cardiac silhouette, elvi, andmediastinum are within normal limits. The skeleton is intact, and thesurrounding soft tissues are unremarkable. IMPRESSION: Unremarkable portable examination of the chest.DRUGS OF [id number] 18:04:00 Test Item Value Reference Range Comments DRUG SCRN (test code=HDOA) URINE DRUG SCREEN This is an unconfirmed screening result and should not be used for non-medical purposes CANNABINOD (test code=88C) Negative NEGATIVE AMPHETAMINE (test code=84A) Negative NEGATIVE BENZODIAZP (test code=86A) Negative NEGATIVE BARBITURAT (test code=85A) Negative NEGATIVE OPIATES (test code=92B) Negative NEGATIVE COCAINE (test code=87A) Negative NEGATIVE PHENCYCLID (test code=66A) Negative NEGATIVE METHADONE (test code=64A) Negative NEGATIVE DOAH (test code=DOAH.) URINE DRUG SCREEN Cut-off values are as follows: Cannabinoids 50 ng/mL Cocaine 300 ng/mL Amphetamines 1000 ng/mL Phencyclidine 25 ng/mL Benzodiazepines 200 ng.mL Methadone 300 ng/mL Barbiturates 200 ng/mL Opiates 2000 ng/mL [id number] 17:59:00 Test Item Value Reference Range Comments COLOR (test code=COLU) YELLOW YELLOW CLARITY (test code=CLA) CLEAR CLEAR GLUCOSE UR (test code=UA GLUCOSE) NEGATIVE NEGATIVE BILI UR (test code=BILE) NEGATIVE NEGATIVE KETONES UR (test code=JOSE) NEGATIVE NEGATIVE SP GRAVITY (test code=SPGR) 1.018 1.005-1.030 PH UR (test code=PH) 6.5 4.5-8.0 PROTEIN UR (test code=PU) NEGATIVE NEGATIVE UROBIL UR (test code=UROQ) 0.2 EU/dL 0.2-1.0 NITRITE UR (test code=NITRITE) NEGATIVE NEGATIVE BLOOD UR (test code=UA BLOOD) NEGATIVE NEGATIVE LEUK ES UR (test code=LEUK) NEGATIVE NEGATIVE CBC (INCLUDES AUTOMATED DIFFERENTIAL)2019-08-10 17:54:00 Test Item Value Reference Range Comments WBC (test code=WBC) 7.0 10\S\3/uL 4.5-11.0 RBC (test code=RBC) 4.53 10\S\6/uL 4.20-5.60 HGB (test code=HBG) 14.1 g/dL 14.0-18.0 HCT (test code=HCT) 42.9 % 35.0-46.0 MCV (test code=MCV) 94.7 fL 80.0-94.0 MCH (test code=MCH) 31.1 pg 27.0-31.0 MCHC (test code=MCHC) 32.9 g/dL 32.0-36.0 RDW (test code=RDW) 13.2 % 11.5-14.5 PLT (test code=PLT) 153 10\S\3/uL 130-400 MPV (test code=MPV) 8.9 fL 9.4-12.4 NEUTROP # (test code=NE#) 3.6 10\S\3/uL 2.0-8.0 LYMPH # (test code=LY#) 2.3 10\S\3/uL 1.2-4.0 MONOCYTE # (test code=MO#) 0.8 10\S\3/uL 0.0-1.1 EOSINOPH # (test code=EO#) 0.3 10\S\3/uL 0.0-0.7 BASOPHIL # (test code=BA#) 0.1 10\S\3/uL 0.0-0.3 IG # (test code=IG#) 0.01 10\S\3/uL 0.00-0.06 NRBC # (test code=NRBC#) 0.00 10\S\3/uL 0.00-0.01 NEUTROPH % (test code=NE%) 51.5 % 35.0-73.0 LYMPH % (test code=LY%) 32.8 % 20.0-55.0 MONO % (test code=MO%) 10.8 % 2.5-10.0 EOSINOPH % (test code=EO%) 4.1 % 0.0-5.0 BASOPHIL % (test code=BA%) 0.7 % 0.0-2.0 IG % (test code=IG%) 0.1 % 0.0-0.8 NRBC% (test code=NRBC%) 0.0 % 0.0-0.2 MANDIFF (test code=MDIFF) NO NO RBC MORPH (test code=RBCMOR) NORMAL
--- OUTSIDE RECORDS SUMMARY | 2019-09-09 11:52 | XMS REPORT ---
:1965 Author Organization eClinicalWorks Care Team Providers Name Role Phone Arteaga, Na Provider Role Unavailable Allergies No Known Allergies Problems Problem Type Condition Code Onset Dates Condition Status Problem Hemiparesis G81.90 Active Problem Benign essential HTN I10 Active Problem Cerumen impaction H61.20 Active Problem Mixed hyperlipidemia E78.2 Active Problem Depression with anxiety F41.8 Active Problem Need for assistance due to unsteady R26.89 Active gait Problem Short leg syndrome, left, acquired M21.70 Active Problem Tinnitus, right H93.11 Active Problem Unspecified osteoarthritis, M19.90 Active unspecified site Problem Anxiety F41.9 Active Problem Weakness of left lower extremity R29.898 Active Problem Pressure ulcer of unspecified heel, L89.602 Active stage 2 Medications No Known Medications Results No Known Results Summary Purpose eClinicalWorks Submission
[2019-09-09] MEDS ORDERED: HYDROCODONE/APAP 10/325 TAB ONE (12:46)
[2019-09-09] MEDS ORDERED: CYCLOBENZAPRINE 10 MG TAB ONE (12:46)
[2019-09-09] MEDS ORDERED: IBUPROFEN 400 MG TAB ONE (12:47)
[2019-09-09] MEDS ORDERED: IBUPROFEN 200 MG TAB PO ONE (12:47)
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
[2019-09-09 13:57] VITALS: BP 108/73; TEMP 98.5; O2SAT 95
== END 2019-09-09 13:52 | disposition home or self-care (01) ==
LOC: ER 11:50
DX: G89.29 Other chronic pain (principal); I10 Essential (primary) hypertension; F41.9 Anxiety disorder, unspecified; Z88.7 Allergy status to serum and vaccine
CPT/HCPCS: 99283

== ENCOUNTER 2020-06-18 09:40 | Emergency (ER) | payer MEDICARE ==
[2020-06-18] MEDS ORDERED: IBUPROFEN 400 MG TAB ONE (10:10)
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
[2020-06-18 11:53] VITALS: BP 121/76; TEMP 97.9; O2SAT 100
== END 2020-06-18 11:41 | disposition home or self-care (01) ==
LOC: ER 09:40
DX: S00.90XA Unspecified superficial injury of unspecified part of head, initial encounter (principal); W06.XXXA Fall from bed, initial encounter; Y93.9 Activity, unspecified; Y92.9 Unspecified place or not applicable; F17.210 Nicotine dependence, cigarettes, uncomplicated; I10 Essential (primary) hypertension; F32.9 Major depressive disorder, single episode, unspecified; Z88.7 Allergy status to serum and vaccine
CPT/HCPCS: 70450; 72125; 99285

== ENCOUNTER 2021-08-09 15:14 | Emergency (ER) | payer MEDICARE, OTHER, SELFPAY ==
[2021-08-09] MEDS ORDERED: HYDROCODONE/APAP 10/325 TAB ONE (15:26)
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
--- OUTSIDE RECORDS SUMMARY | 2021-08-09 16:33 | XMS REPORT | Continuity of Care Document ---
:1965 Author Organization [facility] t Address [address] [place] [address] Care Team Providers Name Role Phone KNOW Attending Clinician Unavailable DR PASCUAL Attending Clinician Unavailable KNOW Admitting Clinician Unavailable DR PASCUAL Admitting Clinician Unavailable Problems Condition Condition Condition Status Onset Resolution Last Treating Co mments Source Name Details Category Date Date Treatment Clinician Date Mixed Mixed Diagnosis Active [facility] hyperlipid hyperlipid Padmini kes - emia emia [facility] Benign Benign Problem Active [facility] essential essential [facility] - HTN HTN [facility] Cerumen Cerumen Problem Active [facility] impaction impaction [facility] - [facility] Anxiety Anxiety Problem Active [facility] Unspecifie Unspecifie Problem Active [facility] - osteoarthr osteoarthr Me moria itis, itis, l unspecifie unspecifie Ou tpati d site d site ent Clinics Depression Depression Diagnosis Active [facility] with with [facility] - anxiety anxiety [facility] l [facility] Hemiparesi Hemiparesi Problem Active [facility] s [facility] - [facility] Pressure Pressure Problem Active [facility] t ulcer of ulcer of [facility] - unspecifie unspecifie Me moria d heel, d heel, l stage 2 stage 2 [facility] Need for Need for Problem Active [facility] assistance assistance Padmini kes - due to due to Memoria unsteady unsteady l gait gait [facility] 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 Medications Ordered Filled Start Stop Current Ordering Indication Dosage Frequency Signature Comments Components Source Medication Medication Date Date Medication? Clinician (SIG) Name Name Mariya Meraz Yes Na Arteaga [address] [facility] Lisinopril Lisinopril Yes Na Arteaga 1 tablet [facility] ent Clinics Lipitor Lipitor Yes Na Arteaga 1 tablet [facility] I [facility] ent Clinics Procedures This patient has no known procedures. Encounters Start End Encounter Admission Attending Care Care Encounter Source Date/Time Date/Time Type Type Clinicians Facility Department ID 2020-06-21 2020-06-21 Outpatient FACUNDOGARRETT SANGEETA [id number] [facility] 11:51:00 11:51:00 DOES_NOT [id number] [facility] 2019-12-05 2019-12-05 [place] [id number] [address] 09:37:00 09:37:00 t [facility] ent Clinics 2019-08-20 2019-08-20 [place] [facility] [id number] 11:20:00 11:20:00 t [employer]ee s [employer] [facility] 2019-08-10 2019-08-18 Inpatient Eugene GARNER Camille [facility] [id number] [address] [place] 20:44:00 15:00:00 [facility] 2019-08-09 2019-08-09 [place] [place] [id number] 16:31:00 16:31:00 [employer] Outpat[facility] ent Clinics 2019-08-07 2019-08-07 [place] [id number] [address] 14:43:00 14:43:00 t [employer] - [place] [employer] Outpati ent Clinics 2019-05-16 2019-05-16 [place] [id number] [facility] 10:20:00 10:20:00 [email or web address] [facility] Out[facility] ent Clinics 2019-02-27 2019-02-27 [place] [id number] 13:20:00 13:20:[address] Luke [facility] - Drive [facility] Medicine l Medicine Outpati ent Clinics 2019-01-01 2019-01-01 [place] [place] [id number] [address] 09:54:00 09:54:[address] Luke s - Drive [facility] Medicine l Medicine Outpati ent Clinics 2019-01-01 2019-01-01 [place] [place] [id number] 09:00:00 09:00:[address] Luke s - Drive [facility] Medicine l Medicine Outpati ent Clinics 2018-11-30 2018-11-30 [place] [id number] 10:45:00 10:45:00 t [place] [employer] Luke [facility] - Drive [facility] Medicine l Medicine Outpati ent Clinics 2018-11-24 2018-11-24 [place] [place] [id number] 15:45:00 15:45:[address] Luke s - Drive [facility] Medicine l Medicine Outpati ent Clinics 2018-10-25 2018-10-25 [place] [id number] 09:00:00 09:00:00 t [place] [employer] Luke s - Drive [facility] Medicine l Medicine Outpati ent Clinics 2018-08-30 2018-08-30 [facility] [id number] 09:45:00 09:45:[address] Luke s - Drive [facility] Medicine l Medicine Outpati ent Clinics 2018-08-29 2018-08-29 [facility] [id number] 09:54:00 09:54:[address] Luke s - Drive [facility] Medicine l Medicine Outpati ent Clinics 2018-06-30 2018-06-30 [facility] [id number] 09:30:00 09:30:[address] Luke s - Drive [facility] Medicine l Medicine Outpati ent Clinics 2018-05-31 2018-05-31 [facility] [id number] 15:00:00 15:00:[address] Luke s - [employer] [facility] Medicine Outpati ent Clinics 2018-05-03 2018-05-03 [place] [place] [id number] 09:30:00 09:30:00 t [place]ise [place] - Drive [facility] Medicine Outpati ent Clinics 2018-03-30 2018-03-30 [place] [place] [id number] 16:33:00 16:33:00 t [place] [employer] - [employer] [facility] Medicine Medicine Outpati ent Clinics 2018-03-23 2018-03-23 [place] [place] [id number] 08:36:00 08:36:00 t [employer] - [employer] [facility] Medicine Outpati ent Clinics 2018-03-21 2018-03-21 [place] [id number] 08:45:00 08:45:00 t [employer] - [employer] [facility] Medicine Outpati ent Clinics 2018-02-20 2018-02-20 [place] [id number] 08:45:00 08:45:00 t [employer] - [employer] [facility] Medicine Outpati ent Clinics 2018-01-20 2018-01-20 [place] [facility] [id number] 09:00:00 09:00:00 t [employer] [facility] Medicine Outpati ent Clinics Results Test Description Test Time Test Comments Results Result Comments Source AMMONIA 2020-06-21 12:16:00 Test Item Value Reference Range Interpretation Comme nts AMMONIA (test code = AMM) 92 umol/L 11-32 H IDENTIFICATION ON IT V.LAB.JQ 06/21/20 1154GLUCOMETER GLUCOSE- LAB USE ONLY 2019-08-15 17:16:00 Test Item Value Reference Range Interpretation Comments GLUCOMETER (test code 116 mg/dL 70-100 H CLEANE D METERMeter ID: = GMG) [id number] tor: [id number] [facility] IMAN GLUCOMETER GLUCOSE- LAB USE [id number] 07:52:00 Test Item Value Reference Range Interpretation Comments GLUCOMETER (test code = 89 mg/dL 70-100 NANCY DIDI METERMeter ID: GMG) [id number] tor: [id number] Matt MACK [id number] 22:37:00 Test Item Value Reference Range Interpretation Comments FOLATE (test code = A75) 33.1 ng/mL 3.1-17.5 H THYROID PANEL/SCREEN (TSH)2019-08-10 22:32:00 Test Item Value Reference Range Interpretation Comments TSH (test code = A57) 1.480 uIU/mL 0.358-3.740 LIPID [id number] 22:17:00 Test Item Value Reference Range Interpretation Comments CHOLESTROL (test code = 44A) 183 mg/dL 140-200 TRIGLYCERI (test code = 42B) 139 mg/dL <=149 HDL (test code = 83D) 41.0 mg/dL 40.0-60.0 LDL (test code = 34B) 115 mg/dL <=99 H CHL/HDL (test code = CHR) 4.5 0.0-3.4 H [id number] 22:17:00 Test Item Value Reference Range Interpretation Comments PREALBUMIN (test code = 08E) 28 mg/dL 18-38 [id number] 21:57:00 Test Item Value Reference Range Interpretation Comments MAGNESIUM (test code = 48A) 2.2 mg/dL 1.8-2.4 COMPREHENSIVE METABOLIC [id number] 18:16:00 Test Item Value Reference Range Interpretation [...] (test code = 31A) 47 IU/L <=78 [id number] 18:16:00 Test Item Value Reference Range Interpretation Comments ACETAMINPH (test code = 94M) <2.0 ug/mL 10.0-30.0 L ALCOHOL BLOOD (ETOH)2019-08-10 18:15:00 Test Item Value Reference Range Interpretation Comments ETOH (test code = HALC) ETHANOL The result is to be used only for medical purposes ALCOHOL (test code = <10 mg/dL <=10 56A) PRO TIME AND [id number] 18:14:00 Test Item Value Reference Range Interpretation [...] LMW Heparin. Order Code is ANTI-XA CARDIAC [id number] 18:14:00 Test Item Value Reference Range Interpretation Comments TROPONIN I (test code = A84) <0.015 ng/mL 0.000-0.045 AMMONIA [id number] 18:10:00 Test Item Value Reference Range Interpretation Comments AMMONIA (test code = 54A) 21 umol/L 11-32 [id number] 18:10:00 Test Item Value Reference Range Interpretation Comments SALICYLATE (test code = 94B) 2.7 mg/dL 2.8-20.0 L XR CHEST 1 VIEW [id number] 18:05:16LOCATION: [id number]: 54-year-old male, psychiatric workup.COMMENT: A frontal chest [...] ng/mL Barbiturates 200 ng/mL Opiates 2000 ng/mL [id number] 17:59:00 Test Item Value Reference Range Interpretation [...]
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
[2021-08-09 20:13] VITALS: BP 108/72; TEMP 98; O2SAT 100
== END 2021-08-09 20:02 | disposition home or self-care (01) ==
LOC: ER 15:14
DX: S00.03XA Contusion of scalp, initial encounter (principal); W06.XXXA Fall from bed, initial encounter; I10 Essential (primary) hypertension; F17.210 Nicotine dependence, cigarettes, uncomplicated; Z88.7 Allergy status to serum and vaccine
CPT/HCPCS: 70450; 99284

== ENCOUNTER 2021-10-13 17:08 | Emergency (ER) | payer OTHER ==
--- OUTSIDE RECORDS SUMMARY | 2021-10-13 17:11 | XMS REPORT | Continuity of Care Document ---
:1965 Author Organization [facility] t Address [address] [place] [address] Care Team Providers Name Role Phone KNOW Attending Clinician Unavailable DR PASCUAL Attending Clinician Unavailable KNOW Admitting Clinician Unavailable DR PASCUAL Admitting Clinician Unavailable Problems Condition Condition Condition Status Onset Resolution Last Treating Co mments Source Name Details Category Date Date Treatment Clinician Date Mixed Mixed Diagnosis Active [facility] hyperlipid hyperlipid Padmini kes - emia [facility] Benign Benign Problem Active [facility] essential essential [facility] - HTN HTN [facility] Cerumen Cerumen Problem Active [facility] impaction impaction [facility] Anxiety Anxiety Problem Active [facility] Unspecifie Unspecifie Problem Active [facility] - osteoarthr osteoarthr Me moria itis, itis, l unspecifie unspecifie Ou tpati d site d site ent Clinics Depression Depression Diagnosis Active [facility] with with [facility] - anxiety anxiety [facility] Hemiparesi Hemiparesi Problem Active [facility] Pressure Pressure Problem Active [facility] ulcer of ulcer of [facility] - unspecifie unspecifie Me moria d heel, d heel, l stage 2 stage 2 [facility] Need for Need for Problem Active [facility] assistance assistance Padmini kes - due to due to Memoria unsteady unsteady l gait gait [facility] 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 Medications Ordered Filled Start Stop Current Ordering Indication Dosage Frequency Signature Comments Components Source Medication Medication Date Date Medication? Clinician (SIG) Name Name Mariya Meraz Yes Na Arteaga [address] [facility] Lisinopril Lisinopril Yes Na Arteaga [address] [facility] Lipitor Lipitor Yes Na Arteaga [address] [facility] Procedures This patient has no known procedures. Encounters Start End Encounter Admission Attending Care Care Encounter Source Date/Time Date/Time Type Type Clinicians Facility Department ID 2020-06-21 2020-06-21 Outpatient GARRETT LOREDO SANGEETA [id number] [facility] 11:51:00 11:51:00 DOES_NOT [id number] [facility] 2019-12-05 2019-12-05 [facility] [id number] [facility] 09:37:00 09:37:00 t [facility] [employer] [facility] 2019-08-20 2019-08-20 [facility] [id number] [facility] 11:20:00 11:20:00 t [facility] Drive [facility] 2019-08-10 2019-08-18 Inpatient Eugene GARNER [facility] [id number] [address] 20:44:00 15:00:00 [facility] 2019-08-09 2019-08-09 [facility] [id number] [facility] 16:31:00 16:31:00 t [employer] [facility] 2019-08-07 2019-08-07 [facility] [id number] [facility] 14:43:00 14:43:00 t [employer] [facility] 2019-05-16 2019-05-16 [facility] [id number] 10:20:00 10:20:[address] [facility] - [facility] l Medicine Outpati ent Clinics 2019-02-27 2019-02-27 [facility] [id number] 13:20:00 13:20:[address] [facility] - Drive [facility] Medicine l Medicine Outpat[facility] ent Clinics 2019-01-01 2019-01-01 [facility] [id number] 09:54:00 09:54:[address] [facility] - [address] [facility] l Medicine Outpati ent Clinics 2019-01-01 2019-01-01 [facility] [id number] 09:00:00 09:00:00 [place] [employer] [facility] - [facility] l Medicine Outpat[facility] ent Clinics 2018-11-30 2018-11-30 [facility] [id number] 10:45:00 10:45:00 [place] [employer] [facility] - Drive [facility] 2018-11-24 2018-11-24 [facility] [id number] 15:45:00 15:45:00 [place] [employer] [facility] - [facility] Medicine l Medicine Outpati ent Clinics 2018-10-25 2018-10-25 [facility] [id number] 09:00:00 09:00:00 [place] [employer] [facility] - Drive [facility] l Medicine Outpati ent Clinics 2018-08-30 2018-08-30 [facility] [id number] 09:45:00 09:45:00 [place] [employer] [facility] - Drive [facility] Medicine l Medicine Outpati ent Clinics 2018-08-29 2018-08-29 [facility] [id number] [address] 09:54:00 09:54:00 [place] [employer] [facility] - [facility] l Medicine Outpati ent Clinics 2018-06-30 2018-06-30 [facility] [id number] 09:30:00 09:30:00 [place] [employer] [facility] - [facility] l Medicine Outpati ent Clinics 2018-05-31 2018-05-31 [facility] [id number] [address] 15:00:00 15:00:00 [place] [employer] [facility] [facility] - Drive [facility] 2018-05-03 2018-05-03 [facility] [id number] 09:30:00 09:30:00 [place] [employer] [facility] - Drive [facility] 2018-03-30 2018-03-30 [facility] [id number] 16:33:00 16:33:00 [place] [employer] [facility] - Drive [facility] Medicine Medicine Outpati ent Clinics 2018-03-23 2018-03-23 [facility] [id number] 08:36:00 08:36:00 t [place] [employer] s - Drive [facility] 2018-03-21 2018-03-21 [facility] [id number] 08:45:00 08:45:00 [place] [employer] [facility] - Drive [facility] Clin[facility] 2018-02-20 2018-02-20 [facility] [id number] 08:45:00 08:45:00 [place] [employer] - [facility] 2018-01-20 2018-01-20 [facility] [id number] 09:00:00 09:00:00 [place] [employer] - [facility] Results Test Description [...] H CLEANE D METERMeter ID: = GMG) [id number] tor: [id number] [facility] GLUCOMETER GLUCOSE- LAB USE [id number] 07:52:00 Test Item Value Reference Range Interpretation Comments GLUCOMETER (test code = 89 mg/dL 70-100 NANCY DIDI METERMeter ID: GMG) [id number] tor: [id number] ROXANNE Gutierrez Kwan MACK [id number] 22:37:00 Test Item Value Reference Range Interpretation Comments FOLATE (test code = A75) 33.1 ng/mL 3.1-17.5 H THYROID PANEL/SCREEN (TSH)2019-08-10 22:32:00 Test Item Value Reference Range Interpretation Comments TSH (test code = A57) 1.480 uIU/mL 0.358-3.740 LIPID [id number] 22:17:00 Test Item Value Reference Range Interpretation Comments CHOLESTROL (test code = 44A) 183 mg/dL 140-200 TRIGLYCERI (test code = 42B) 139 mg/dL <=149 HDL (test code = 83D) 41.0 mg/dL 40.0-60.0 LDL (test code = 34B) 115 mg/dL <=99 H CHL/HDL (test code = CHR) 4.5 0.0-3.4 H [id number] 22:17:00 Test Item Value Reference Range Interpretation Comments PREALBUMIN (test code = 08E) 28 mg/dL 18-38 [id number] 21:57:00 Test Item Value Reference Range Interpretation Comments MAGNESIUM (test code = 48A) 2.2 mg/dL 1.8-2.4 COMPREHENSIVE METABOLIC [id number] 18:16:00 Test Item Value Reference Range Interpretation [...] (test code = 31A) 47 IU/L <=78 [id number] 18:16:00 Test Item Value Reference Range Interpretation Comments ACETAMINPH (test code = 94M) <2.0 ug/mL 10.0-30.0 L ALCOHOL BLOOD (ETOH)2019-08-10 18:15:00 Test Item Value Reference Range Interpretation Comments ETOH (test code = HALC) ETHANOL The result is to be used only for medical purposes ALCOHOL (test code = <10 mg/dL <=10 56A) PRO TIME AND [id number] 18:14:00 Test Item Value Reference Range Interpretation [...] LMW Heparin. Order Code is ANTI-XA CARDIAC [id number] 18:14:00 Test Item Value Reference Range Interpretation Comments TROPONIN I (test code = A84) <0.015 ng/mL 0.000-0.045 AMMONIA [id number] 18:10:00 Test Item Value Reference Range Interpretation Comments AMMONIA (test code = 54A) 21 umol/L 11-32 [id number] 18:10:00 Test Item Value Reference Range Interpretation Comments SALICYLATE (test code = 94B) 2.7 mg/dL 2.8-20.0 L XR CHEST 1 VIEW [id number] 18:05:16LOCATION: [id number]: 54-year-old male, psychiatric workup.COMMENT: A frontal chest [...] ng/mL Barbiturates 200 ng/mL Opiates 2000 ng/mL [id number] 17:59:00 Test Item Value Reference Range Interpretation [...]
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
--- NOTE | 2021-10-13 18:33 | RAD REPORT ---
EXAM DESCRIPTION: RAD - Hand Right 3 View - 10/13/2021 6:21 pm CLINICAL HISTORY: PAIN COMPARISON: No comparisons FINDINGS: Dislocation is noted involving the DIP joint of the fourth finger. Tiny associated avulsio n fractures present. Small fracture is also suspected involving the base of the fifth metacarpal with adjacent soft tissue swelling.
[2021-10-13] MEDS ORDERED: BUPIVACAINE 0.5% PF 10 ML VIAL ONE (18:56)
[2021-10-13] MEDS ORDERED: LIDOCAINE 1% MPF 30 ML VIAL ONE (18:57)
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
--- NOTE | 2021-10-13 19:53 | RAD REPORT ---
EXAM DESCRIPTION: RAD - Hand Right 2 View - 10/13/2021 7:43 pm CLINICAL HISTORY: post reduction COMPARISON: Hand Right 3 View dated 10/13/2021 FINDINGS: Previously noted PIP joint dislocation of the fourth finger has been reduced. Mild surroun ding soft tissue swelling is evident with tiny areas of bony fragmentation seen.
[2021-10-13 20:53] VITALS: BP 127/69; TEMP 98; O2SAT 97
== END 2021-10-13 20:30 | disposition home or self-care (01) ==
LOC: ER 17:08
PROC: 2W3JX1Z Immobilization of Right Finger using Splint (ICD-10-PCS; principal; 2021-10-13)
DX: S62.614A Displaced fracture of proximal phalanx of right ring finger, initial encounter for closed fracture (principal); S63.284A Dislocation of proximal interphalangeal joint of right ring finger, initial encounter; W05.0XXA Fall from non-moving wheelchair, initial encounter; I10 Essential (primary) hypertension
CPT/HCPCS: 70450; 99284

== ENCOUNTER 2021-10-23 14:14 | Emergency (ER) | payer OTHER ==
--- OUTSIDE RECORDS SUMMARY | 2021-10-23 14:17 | XMS REPORT | Continuity of Care Document ---
:1965 Author Organization [facility] t Address [address] [place] [address] Care Team Providers Name Role Phone Tong Arteaga Attending Clinician Unavailable KNOW Attending Clinician Unavailable DR PASCUAL Attending Clinician Unavailable KNOW Admitting Clinician Unavailable DR PASCUAL Admitting Clinician Unavailable Problems Condition Condition Condition Status Onset Resolution Last Treating Co mments Source Name Details Category Date Date Treatment Clinician Date Mixed Mixed Diagnosis Active [facility] hyperlipid hyperlipid Padmini kes - emia emia [facility] Benign Benign Problem Active [facility] essential essential [facility] - HTN HTN [facility] Cerumen Cerumen Problem Active [facility] impaction impaction [facility] Anxiety Anxiety Problem [facility] Unspecifie Unspecifie Problem Active [facility] - osteoarthr osteoarthr Me moria itis, itis, l unspecifie unspecifie Ou tpati d site d site ent Clinics Depression Depression Diagnosis Active [facility] with with [facility] - anxiety anxiety [facility] Hemiparesi Hemiparesi Problem Active [facility] Pressure Pressure Problem Active [facility] ulcer of ulcer of [facility] - unspecifie unspecifie Me moria d heel, d heel, l stage 2 stage 2 [facility] Need for Need for Problem Active [facility] assistance assistance Padmini kes - due to due to Memoria unsteady unsteady l gait gait Outpati ent Clinics 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, syndrome, Luke [facility] - left, left, Memoria acquired acquired l [facility] Weakness Weakness Problem Active [facility] of left of left [facility] - lower lower [facility]oria extremity extremity l [facility] Tinnitus, Tinnitus, Problem Active [facility] right right [facility] Primary Primary Problem Active [facility] insomnia insomnia [facility] Allergies, Adverse Reactions, Alerts Allergy Allergy Status Severity Reaction(s) Onset Inactive Treating Comm ents Source Name Type Date Date Clinician No Known DA Active [facility] Medications Ordered Filled Start Stop Current Ordering Indication Dosage Frequency Signature Comments Components Source Medication Medication Date Date Medication? Clinician (SIG) Name Name Celexa Celexa Yes Na Arteaga [address] [facility] Lisinopril Lisinopril Yes Na Arteaga [address] [facility] Lipitor Lipitor Yes Na Arteaga [address] [facility] Vital Signs Vital Name Observation Time Observation Value Comments Source Weight 2019-08-13 07:00:00 81.28 KG Height 2019-08-10 17:00:00 187.96 CM Procedures This patient has no known procedures. Encounters Start End Encounter Admission Attending Care Care Encounter Source Date/Time Date/Time Type Type Clinicians Facility Department ID 2021-10-14 [facility] [id number] [facility] 11:22:12 [id number] [facility] 2021-10-14 [facility] [id number] [facility] [address] 11:21:51 [id number] [facility] 2020-06-21 2020-06-21 Outpatient FACUNDO, HCABM OPLA [id number] [facility] 11:51:00 11:51:00 DOES_NOT [id number] [facility] 2019-12-05 2019-12-05 [facility] [id number] [facility] 09:37:00 09:37:00 [facility] [employer] [facility] Out[facility] Clinics 2019-08-20 2019-08-20 [facility] [id number] 11:20:00 11:20:00 [facility] [employer] [facility] Medicine Outpat[facility] Clinics 2019-08-10 2019-08-18 Inpatient Eugene [facility]ER [facility] [id number] 20:44:00 15:00:00 [facility] 2019-08-09 2019-08-09 [facility] [id number] 16:31:00 16:31:[address] [facility] - [facility] l Medicine Outpati ent Clinics 2019-08-07 2019-08-07 [facility] [id number] 14:43:00 14:43:[address] [facility] - Drive [facility] l Medicine Outpat[facility] ent Clinics 2019-05-16 2019-05-16 [facility] [id number] 10:20:00 10:20:00 t [place] [facility] - Drive [facility] l Medicine Outpati ent Clinics 2019-02-27 2019-02-27 [facility] [id number] [address] 13:20:00 13:20:00 t [place] Ek[place]ubu [facility] - Drive [facility] l Medicine Outpati ent Clinics 2019-01-01 2019-01-01 [facility] [id number] 09:54:00 09:54:00 t Ekron Ekron Azubu [employer] s - Drive [facility] Medicine l Medicine Outpati ent Clinics 2019-01-01 2019-01-01 [facility] [id number] [address] 09:00:00 09:00:00 t Ekron Ekron Azubu [employer] s - Drive [facility] l Medicine Outpati ent Clinics 2018-11-30 2018-11-30 [facility] [id number] 10:45:00 10:45:00 t Ek[place] Ekron Azubu [facility] - Drive [facility] Medicine l Medicine Outpati ent Clinics 2018-11-24 2018-11-24 [facility] [id number] 15:45:00 15:45:00 t Ekron Ekron Azubu [employer] - Drive [facility] l Medicine Outpati ent Clinics 2018-10-25 2018-10-25 [facility] [id number] [address] 09:00:00 09:00:00 t Ekron Ekron Azubu [facility] - Drive [facility] l Medicine Outpati ent Clinics 2018-08-30 2018-08-30 [facility] [id number] 09:45:00 09:45:[address] [facility] s - Drive [facility] l Medicine Outpati ent Clinics 2018-08-29 2018-08-29 [facility] [id number] [address] 09:54:00 09:54:[address] [facility] s - Drive [facility] Medicine l Medicine Outpati ent Clinics 2018-06-30 2018-06-30 [facility] [id number] 09:30:00 09:30:[address] [facility] - Drive [facility] Medicine l Medicine Outpati ent Clinics 2018-05-31 2018-05-31 [facility] [id number] 15:00:00 15:00:[address] [facility] - Drive [facility] l Medicine Outpati ent Clinics 2018-05-03 2018-05-03 [facility] [id number] 09:30:00 09:30:[address] [facility] - Drive [facility] Medicine l Medicine Outpati ent Clinics 2018-03-30 2018-03-30 [facility] [id number] 16:33:00 16:33:[address] [facility] - Drive [facility] Medicine l Medicine Outpati ent Clinics 2018-03-23 2018-03-23 [facility] [id number] 08:36:00 08:36:[address] [facility] - Drive [facility] Medicine l Medicine Outpati ent Clinics 2018-03-21 2018-03-21 [facility] [id number] 08:45:00 08:45:[address] [facility] - Drive [facility] Medicine l Medicine Outpati ent Clinics 2018-02-20 2018-02-20 [facility] [id number] 08:45:00 08:45:[address] [facility] - Drive [facility] Medicine l Medicine Outpati ent Clinics 2018-01-20 2018-01-20 [facility] [id number] 09:00:00 09:00:[address] [facility] s - Drive [facility] Medicine l Medicine Outpati ent Clinics Results Test Description [...] H CLEANE D METERMeter ID: = GMG) [id number] tor: [id number] PENDING SALE TO [facility] GLUCOMETER GLUCOSE- LAB USE [id number] 07:52:00 Test Item Value Reference Range Interpretation Comments GLUCOMETER (test code = 89 mg/dL 70-100 NANCY DIDI METERMeter ID: GMG) [id number] tor: [id number] US[address]ETTE MATTHEWSIEN [id number] 22:37:00 Test Item Value Reference Range Interpretation Comments FOLATE (test code = A75) 33.1 ng/mL 3.1-17.5 H THYROID PANEL/SCREEN (TSH)2019-08-10 22:32:00 Test Item Value Reference Range Interpretation Comments TSH (test code = A57) 1.480 uIU/mL 0.358-3.740 LIPID [id number] 22:17:00 Test Item Value Reference Range Interpretation Comments CHOLESTROL (test code = 44A) 183 mg/dL 140-200 TRIGLYCERI (test code = 42B) 139 mg/dL <=149 HDL (test code = 83D) 41.0 mg/dL 40.0-60.0 LDL (test code = 34B) 115 mg/dL <=99 H CHL/HDL (test code = CHR) 4.5 0.0-3.4 H [id number] 22:17:00 Test Item Value Reference Range Interpretation Comments PREALBUMIN (test code = 08E) 28 mg/dL 18-38 [id number] 21:57:00 Test Item Value Reference Range Interpretation Comments MAGNESIUM (test code = 48A) 2.2 mg/dL 1.8-2.4 COMPREHENSIVE METABOLIC [id number] 18:16:00 Test Item Value Reference Range Interpretation [...] (test code = 31A) 47 IU/L <=78 [id number] 18:16:00 Test Item Value Reference Range Interpretation Comments ACETAMINPH (test code = 94M) <2.0 ug/mL 10.0-30.0 L ALCOHOL BLOOD (ETOH)2019-08-10 18:15:00 Test Item Value Reference Range Interpretation Comments ETOH (test code = HALC) ETHANOL The result is to be used only for medical purposes ALCOHOL (test code = <10 mg/dL <=10 56A) PRO TIME AND [id number] 18:14:00 Test Item Value Reference Range Interpretation [...] LMW Heparin. Order Code is ANTI-XA CARDIAC [id number] 18:14:00 Test Item Value Reference Range Interpretation Comments TROPONIN I (test code = A84) <0.015 ng/mL 0.000-0.045 AMMONIA [id number] 18:10:00 Test Item Value Reference Range Interpretation Comments AMMONIA (test code = 54A) 21 umol/L 11-32 [id number] 18:10:00 Test Item Value Reference Range Interpretation Comments SALICYLATE (test code = 94B) 2.7 mg/dL 2.8-20.0 L XR CHEST 1 VIEW [id number] 18:05:16LOCATION: [id number]: 54-year-old male, psychiatric workup.COMMENT: A frontal chest [...] ng/mL Barbiturates 200 ng/mL Opiates 2000 ng/mL [id number] 17:59:00 Test Item Value Reference Range Interpretation [...]
--- NOTE | 2021-10-23 15:02 | RAD REPORT ---
EXAM DESCRIPTION: CT - Head Brain Wo Cont - 10/23/2021 2:55 pm CLINICAL HISTORY: PAIN Headache, drowsiness COMPARISON: Head Brain Wo Cont dated 10/13/2021; Head Brain Wo Cont dated 08/09/2021 TECHNIQUE: All CT scans are performed using dose optimization technique as appropriate and may inclu de automated exposure control or mA/KV adjustment according to patient size. FINDINGS: No intracranial hemorrhage, hydrocephalus or extra-axial fluid collection.Areas gliosis bi lateral cerebral hemispheres, greater on the right unchanged.No areas of brain edema or evidence of m idline shift. The paranasal sinuses and mastoids are clear. The calvarium is intact. IMPRESSION: No acute intracranial abnormality.
--- NOTE | 2021-10-23 15:26 | EDPHYS ---
Physician Documentation [facility] Name: Farzad Echols Age: 56 yrs Sex: Male : 1965 Arrival Date: 10/23/2021 Time: 14:16 Bed 24 Private MD: ED Physician Nathaniel Sanchez HPI: 10/23 14:38 This 56 yrs old Male presents to ER via EMS with complaints of Head injury. pm1 14:38 The patient or guardian reports pain. The complaints affect the Occipital area. Context pm1 of injury: The problem was sustained at a prison or assisted living facility, resulted from a fall, From bed. Onset: The symptoms/episode began/occurred today. Associated signs and symptoms: Loss of consciousness: This patient did not experience any loss of consciousness. Pertinent negatives: nausea, neck pain, vomiting. Severity of symptoms: in the emergency department the symptoms have improved. The patient has experienced similar episodes in the past, multiple times. Patient reports feeling better and that he did not want to brought to the ER. Historical: - PSHx: 15:39 back; head; cb5 - Immunization history:: Adult Immunizations up to date. - Social history:: Smoking status: unknown. ROS: 14:38 Constitutional: Negative for fever, chills, and weight loss, Neck: Negative for injury, pm1 pain, and swelling, Cardiovascular: Negative for chest pain, palpitations, and edema, Respiratory: Negative for shortness of breath, cough, wheezing, and pleuritic chest pain, MS/Extremity: Negative for injury and deformity, Skin: Negative for injury, rash, and discoloration. 14:38 Neuro: Positive for of the occipital area, pain. 14:38 All other systems are negative. Exam: 14:38 Constitutional: This is a well developed, well nourished patient who is awake, alert, pm1 and in no acute distress. 14:38 Back: No spinal tenderness. No costovertebral tenderness. Full range of motion. Skin: Warm, dry with normal turgor. Normal color with no rashes, no lesions, and no evidence of cellulitis. 14:38 Head/face: Exam is negative for acute changes, contusion, ecchymosis, laceration(s), depression. 14:38 Eyes: Exam is negative for acute changes, Periorbital structures: no acute changes, Extraocular movements: intact throughout. 14:38 ENT: External ear(s): no acute changes, Ear canal(s): no acute changes, TM's: no acute changes. 14:38 Neck: Exam negative for acute changes, pain w/ palpation. 14:38 Cardiovascular: Exam negative for acute changes, Rate: normal, Rhythm: regular, Pulses: no pulse deficits are appreciated. 14:38 Respiratory: Exam negative for acute changes, respiratory distress, shortness of breath. 14:38 Neuro: Exam negative for acute changes, Orientation: is normal, Mentation: no acute changes. Vital Signs: 14:17 BP 126 / 68; Pulse 70; Resp 16; Temp 98.6; Pulse Ox 98% ; Weight 79.38 kg; Height 5 ft. cb5 8 in. (172.72 cm); Pain 0/10; 15:39 BP 125 / 67; Pulse 71; Resp 16; Temp 98.6; Pain 0/10; cb5 17:50 BP 128 / 68; Pulse 70; Resp 16; Temp 98.4; Pulse Ox 98% ; Pain 0/10; cb5 14:17 Body Mass Index 26.61 (79.38 kg, 172.72 cm) cb5 Mikhail Coma Score: 14:38 Eye Response: spontaneous(4). Verbal Response: oriented(5). Motor Response: obeys pm1 commands(6). Total: 15. MDM: 14:39 Patient medically screened. pm1 15:23 Data reviewed: vital signs. Data interpreted: Pulse oximetry: on room air is 98 %. pm1 Interpretation: normal. Counseling: I had a detailed discussion with the patient and/or guardian regarding: the historical points, exam findings, and any diagnostic results supporting the discharge/admit diagnosis, radiology results, the need for outpatient follow up, to return to the emergency department if symptoms worsen or persist or if there are any questions or concerns that arise at home. 10/23 14:38 Order name: CT Head Brain wo Cont; Complete Time: 15:17 pm1 Administered Medications: No medications were administered Disposition: 19:23 Co-signature as Attending Physician, Nathaniel Sanchez MD I agree with the assessment and kdr plan of care. Disposition Summary: 10/23/21 15:25 Discharge Ordered Location: Home pm1 Problem: new pm1 Symptoms: have improved pm1 Condition: Stable pm1 Diagnosis - Unspecified superficial injury of other part of head, initial encounter pm1 Followup: pm1 - With: Emergency Department - When: As needed - Reason: Worsening of condition Followup: pm1 - With: Private Physician - When: 2 - 3 days - Reason: Recheck today's complaints, Continuance of care, Re-evaluation by your physician Discharge Instructions: - Discharge Summary Sheet pm1 - Head Injury, Adult pm1 Forms: - Medication Reconciliation Form pm1 - Thank You Letter pm1 - Antibiotic Education pm1 - Prescription Opioid Use pm1 Signatures: Dispatcher [employer] EDMS Nathaniel Sanchez MD MD kdr Marinas, Patrick, NP [employer] pm1 Molly Man RN RN cb5
--- NOTE | 2021-10-23 15:26 | ER ---
Nurse's Notes [facility] Name: Farzad Echols Age: 56 yrs Sex: Male : 1965 Arrival Date: 10/23/2021 Time: 14:16 Bed 24 Private MD: Diagnosis: Unspecified superficial injury of other part of head, initial encounter Presentation: 10/23 14:17 Chief complaint: EMS states: pt fell backwards at long-term and hit his head, no cb5 L.O.C reported, no visual bleeding to head. Coronavirus screen: Vaccine status:. Ebola Screen: Patient negative for fever greater than or equal to 101.5 degrees Fahrenheit, and additional compatible Ebola Virus Disease symptoms Patient denies exposure to infectious person. Patient denies travel to an Ebola-affected area in the 21 days before illness onset. Initial Sepsis Screen: Does the patient meet any 2 criteria? No. Patient's initial sepsis screen is negative. Initial Sepsis Screen: Does the patient have a suspected source of infection? No. Patient's initial sepsis screen is negative. Risk Assessment: Do you want to hurt yourself or someone else? Patient reports no desire to harm self or others. 14:17 Method Of Arrival: EMS: [facility] cb5 14:17 Acuity: LOGAN 3 cb5 Triage Assessment: 14:20 General: Appears in no apparent distress. comfortable, Behavior is calm, cooperative, cb5 appropriate for age. Pain: Denies pain. Historical: - PSHx: 15:39 back; head; cb5 - Immunization history:: Adult Immunizations up to date. - Social history:: Smoking status: unknown. Screenin:24 Abuse screen: Denies threats or abuse. Denies injuries from another. Nutritional cb5 screening: No deficits noted. Tuberculosis screening: No symptoms or risk factors identified. Fall Risk Fall in past 12 months (25 points). Secondary diagnosis (15 points) dementia, impaired mobility, Gait- Impaired (20 pts.). Mental Status- Overestimates/Forgets Limitations (15 pts.). Total Carroll Fall Scale indicates Low Risk Score (25-44 pts). Fall prevention measures have been instituted. Side Rails Up X 2 Placed close to Nursing Station. Assessment: 14:20 General: Appears in no apparent distress. comfortable, Behavior is calm, cooperative, cb5 agitated. Pain: Denies pain. Neuro: Level of Consciousness is awake, alert, obeys commands, Oriented to person, place, time, situation, Appropriate for age. Cardiovascular: No deficits noted. Cardiovascular: No deficits noted. Respiratory: No deficits noted. GI: No deficits noted. No signs and/or symptoms were reported involving the gastrointestinal system. Patient currently denies. : Denies. EENT: No deficits noted. Derm: Skin is fragile, with poor turgor Skin is dry, Skin is pink, warm \T\ dry. Bruising that is blaire hands, legs with bruising. Musculoskeletal: Parent/caregiver report the patient having Report from nurse, they were told patient has had increased falls over the past two weeks, pt in agreement. 15:02 Reassessment: pt is back from radiology, tolerated CT. cb5 15:33 Reassessment: spoke with George Jay at [phone] and gave report. Pt will be cb5 transferred back via EMS. . 15:48 Reassessment: Patient and/or family updated on plan of care and expected duration. Pain cb5 level reassessed. 16:18 Reassessment: waiting on EMS for transportation . cb5 16:19 Reassessment: Patient and/or family updated on plan of care and expected duration. Pain cb5 level reassessed. 17:15 Reassessment: Patient and/or family updated on plan of care and expected duration. Pain cb5 level reassessed. Vital Signs: 14:17 BP 126 / 68; Pulse 70; Resp 16; Temp 98.6; Pulse Ox 98% ; Weight 79.38 kg; Height 5 ft. cb5 8 in. (172.72 cm); Pain 0/10; 15:39 BP 125 / 67; Pulse 71; Resp 16; Temp 98.6; Pain 0/10; cb5 17:50 BP 128 / 68; Pulse 70; Resp 16; Temp 98.4; Pulse Ox 98% ; Pain 0/10; cb5 14:17 Body Mass Index 26.61 (79.38 kg, 172.72 cm) cb5 Mikhail Coma Score: 14:38 Eye Response: spontaneous(4). Verbal Response: oriented(5). Motor Response: obeys pm1 commands(6). Total: 15. ED Course: 14:15 Arm band placed on. cb5 14:16 Patient arrived in ED. cb5 14:16 Molly Man, RN is Primary Nurse. cb5 14:20 Triage completed. cb5 14:24 Patient has correct armband on for positive identification. Allergy band placed. Bed in cb5 low position. Call light in reach. Side rails up X2. 14:25 No provider procedures requiring assistance completed. cb5 14:29 Kwame Antonio NP is PHCP. pm1 14:29 Nathaniel Sanchez MD is Attending Physician. pm1 14:54 CT Head Brain wo Cont In Process Unspecified. EDMS 18:06 Patient did not have IV access during this emergency room visit. cb5 Administered Medications: No medications were administered Outcome: 15:25 Discharge ordered by . pm1 18:06 Discharged to long-term. cb5 18:06 Condition: stable 18:06 Discharge instructions given to EMS. 18:07 Patient left the ED. cb5 Signatures: Dispatcher [employer] [facility] Kwame Antonio NP [employer] pm1 Molly Man, RN RN cb5
[2021-10-23 18:12] VITALS: O2SAT 98
[2021-10-23 18:15] VITALS: BP 128/68; TEMP 98.4
== END 2021-10-23 18:07 | disposition home or self-care (01) ==
LOC: ER 14:14
DX: S00.80XA Unspecified superficial injury of other part of head, initial encounter (principal); W06.XXXA Fall from bed, initial encounter; Y92.129 Unspecified place in nursing home as the place of occurrence of the external cause
CPT/HCPCS: 70450; 99283

== ENCOUNTER 2021-11-30 12:25 | Inpatient (IN) | payer OTHER ==
--- OUTSIDE RECORDS SUMMARY | 2021-11-30 12:30 | XMS REPORT | Continuity of Care Document ---
:1965 Author Organization [facility] t Address [address] [place] [address] Care Team Providers Name Role Phone Tong Arteaga Attending Clinician Unavailable Micheal Attending Clinician Unavailable Kimi Rutledge Attending Clinician Unavailable KNOW Attending Clinician Unavailable DR PASCUAL Attending Clinician Unavailable Micheal Admitting Clinician Unavailable Johanny Lira Admitting Clinician Unavailable KNOW Admitting Clinician Unavailable DR PASCUAL Admitting Clinician Unavailable Payers Payer Name Policy Type Policy Number Effective Date Expiration Date S ource Problems Condition Condition Condition Status Onset Resolution Last Treating Co mments Source Name Details Category Date Date Treatment Clinician Date Mixed Mixed Diagnosis Active [facility] hyperlipid hyperlipid Padmini kes - emia emia [facility] Benign Benign Problem Active [facility] essential essential [facility] - HTN HTN [facility] Cerumen Cerumen Problem Active [facility] impaction impaction [facility] Anxiety Anxiety Problem [facility] Unspecifie Unspecifie Problem Active [facility] - osteoarthr osteoarthr Me moria itis, itis, l unspecifie unspecifie Ou tpati d site d site ent Clinics Depression Depression Diagnosis Active [facility] with with [facility] - anxiety anxiety [facility]oria l [facility] Hemiparesi Hemiparesi Problem Active [facility] Pressure Pressure Problem Active [facility] ulcer of ulcer of [facility] - unspecifie unspecifie Me moria d heel, d heel, l stage 2 stage 2 [facility] Need for Need for Problem Active [facility] assistance assistance Padmini kes - due to due to Memoria unsteady unsteady l gait gait [facility] 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, syndrome, Luke s - left, left, Memoria acquired acquired l [facility] Weakness Weakness Problem Active [facility] of left of left [facility] - lower lower Memoria extremity extremity l [facility] Tinnitus, Tinnitus, Problem Active [facility] right right [facility] Primary Primary Problem Active [facility] insomnia insomnia [facility] Allergies, Adverse Reactions, Alerts Allergy Allergy Status Severity Reaction(s) Onset Inactive Treating Comm ents Source Name Type Date Date Clinician No Known DA Active [facility] Allergie 2 Clear s 00:00: [place] 00 [facility] No Known DA Active [facility] Drug 10-17 Clear Intolera 00:00: [place] n[place] 00 [facility] No Known DA Active [facility] Medications Ordered Filled Start Stop Current Ordering Indication Dosage Frequency Signature Comments Components Source Medication Medication Date Date Medication? Clinician (SIG) Name Name Celexa Celexa Yes Na Arteaga [address] [facility] Lisinopril Lisinopril Yes Na Arteaga [address] [facility] Lipitor Lipitor Yes Na Arteaga [address] [facility] Vital Signs Vital Name Observation Time Observation Value Comments Source Weight 2019-08-13 07:00:00 81.28 KG Height 2019-08-10 17:00:00 187.96 CM Procedures Procedure Date / Time Performed Performing Clinician Dean albrecht [id number] 2021-11-13 00:00:00 [facility]U [facility] [id number] 2021-11-02 00:00:00 [facility] [id number] 2021-11-02 00:00:[address] [facility] [id number] 2021-11-02 00:00:00 [facility] [id number] 2021-11-02 00:00:00 [facility] [id number] 2021-11-02 00:00:[address] [facility] Clear [facility] [id number] 2021-11-02 00:00:00 [facility] [id number] 2021-11-02 00:00:00 [facility] [id number] 2021-10-28 00:00:[address] [facility] Clear [facility] Encounters Start End Encounter Admission Attending Care Care Encounter Source Date/Time Date/Time Type Type Clinicians Facility Department ID 2021-10-14 Outpatient [facility] [id number] 11:22:12 [id number] [facility] Clin[facility] 2021-10-14 Outpatient Laura [facility]teaga [facility] [id number] [facility] 11:21:51 [id number] [facility] Clin[facility] 2021-10-28 2021-11-17 Inpatient EM Micheal, HCACL MEDI.01 [id number] [facility] 00:33:00 16:31:00 Roselia 96 [facility] 2021-10-28 2021-11-17 Inpatient EM Micheal, HCACL MEDI.01 [id number] [facility] 00:33:00 16:31:00 Roselia [facility] 2021-10-27 2021-10-27 Emergency EM TERRI RutledgeCL LORRIE [id number] [facility] 19:29:00 19:29:00 Steve [facility] 2020-06-21 2020-06-21 Outpatient KNOW, HCABM OPLA [id number] [facility] 11:51:00 11:51:00 DOES_NOT [facility] 2019-12-05 2019-12-05 [facility] [id number] [address] 09:37:00 09:37:00 [employer] [place] [facility]ri[facility] 2019-08-20 2019-08-20 [facility] [id number] 11:20:00 11:20:[address] [facility] - [address] [facility] Medicine Outpati ent Clinics 2019-08-10 2019-08-18 Inpatient Eugene [facility]ER [facility] [id number] [place] 20:44:00 15:00:00 [facility] 2019-08-09 2019-08-09 [facility] [id number] 16:31:00 16:31:00 [place] [employer] [facility] - [facility] Medicine Outpati ent Clinics 2019-08-07 2019-08-07 [facility] [id number] 14:43:00 14:43:00 [place] [employer] Luke [facility] - [facility] Medicine Outpati ent Clinics 2019-05-16 2019-05-16 [facility] [id number] 10:20:00 10:20:[address] Luke s - Drive [facility] Medicine Outpati ent Clinics 2019-02-27 2019-02-27 [facility] [id number] 13:20:00 13:20:00 [place] Luke [facility] - Drive [facility] Medicine Outpati ent Clinics 2019-01-01 2019-01-01 [facility] [id number] 09:54:00 09:54:00 [place] [employer] Luke [facility] - Drive [facility] Medicine Outpati ent Clinics 2019-01-01 2019-01-01 [facility] [id number] 09:00:00 09:00:[address] Luke s - Drive [facility] Medicine Outpati ent Clinics 2018-11-30 2018-11-30 [facility] [id number] 10:45:00 10:45:[address] Luke s - Drive [facility] Medicine Outpati ent Clinics 2018-11-24 2018-11-24 [facility] [id number] 15:45:00 15:45:[address] Luke s - Drive [facility] Medicine l Medicine Outpati ent Clinics 2018-10-25 2018-10-25 [facility] [id number] 09:00:00 09:00:[address] Luke s - Drive [facility] Medicine Outpati ent Clinics 2018-08-30 2018-08-30 [facility] [id number] 09:45:00 09:45:[address] Luke s - Drive [facility] Medicine Outpati ent Clinics 2018-08-29 2018-08-29 [facility] [id number] 09:54:00 09:54:00 [place] [employer] Luke s - Drive [facility] Medicine Outpati ent Clinics 2018-06-30 2018-06-30 [facility] [id number] 09:30:00 09:30:00 [place] [employer] s - Drive [facility] Medicine Outpati ent Clinics 2018-05-31 2018-05-31 [facility] [id number] 15:00:00 15:00:00 [place] [employer] s - Drive [facility] Medicine Medicine Outpati ent Clinics 2018-05-03 2018-05-03 [facility] [id number] 09:30:00 09:30:00 [place] [employer] s - Drive [facility] Medicine Outpati ent Clinics 2018-03-30 2018-03-30 [facility] [id number] 16:33:00 16:33:00 [place] [employer] Luke [facility] - Drive [facility] Medicine Medicine Outpati ent Clinics 2018-03-23 2018-03-23 [facility] [id number] 08:36:00 08:36:00 [place] [employer] Luke s - Drive [facility] Medicine Outpati ent Clinics 2018-03-21 2018-03-21 [facility] [id number] 08:45:00 08:45:00 [place] [employer] Luke s - Drive [facility] Medicine Outpati ent Clinics 2018-02-20 2018-02-20 [facility] [id number] 08:45:00 08:45:00 [employer] s - Drive [facility] Medicine [facility] 2018-01-20 2018-01-20 Outpatient Nancy Farias [id number] [facility] 09:00:00 09:00:00 [employer] [facility] ent [facility] Results Test Description Test Time Test Comments Results Result Comments Source SURGICAL 2021-11-17 15:15:00 Test Item Value Reference Range Interpretation Comme nts SURGICAL RUN DATE: (test 11/17/21 [place] - LAB PAGE 1 RUN TIME: 1515 code = Specimen Inquiry RUN USER: INTERFACE SR) PATIENT: VIKA CHEN Tong [facility] [id number] AGE/SX: 56/ M ROOM: [facility] RE10/28/21REG DR: Roselia Burton MD : 61 BED: 1 DIS: STATUS: ADM IN TLOC: SPEC #: [id number] RECD: -[id number] STATUS: RICARDO HUERTAS #: [id number] ABNER: 11/13/21- SUBM DR: Matt Herrera MD ENTERED: 11/16/21-1030 SP TYPE: SURGICAL OTHR DR: Self Referred Dillon Herrera MD, Husam Ismail MD Loya, Altaf N MD Mbogua, Caroli ne N MD Reyhani, Sea n A DPMORDERED: BONE DECAL, GM LEVEL 5, ANATOMIC SPEC CODE S: [id number] - LEG, NOS COPIES TO: Self Referred Matt Herrera MD [address] [place] [address] Dillon Herrera MD [address] [facility] [address] [place] [address] [phone] Rafael Isidro MD [address] [facility] [address] [place] [address] [place] [address] [facility] [address] [place] [address] [email or web address] Savanna Lira MD [address] [place] [phone] Donald Dodson DPM [address] [facility] [place] [address] [email or web address] CONTINUED ON NEXT PAGE RUN DATE: 11/17/21 [place] - LAB PAGE 2 RUN TIME: 1515 Specimen Inquiry RUN USER: INTERFACE SPEC #: [id number] PATIENT: VIKA CHEN #[id number] (Continued) PROCEDURES: BONE DECAL (10/21 05/10-155) GM LEVEL 5 (11/16/21-1030) TISSUES: LEG, NOS - LEFT AKA CLINICAL HISTORY SAME FINAL DIAGNOSIS Left foot and leg, nmyyh-hxl-lemc amputation: Gangrenous extre mity with ulcer andosteomyelitis; calcified arterial sclerosis; viable skin and soft tissue resection ma rgin;femoral bone margin negative for osteomyelitis. GROSS DESCRIPTION Received fresh w [facility] fixative labeled "left foot/leg "is an above-knee amputationspecimen. It measures 27 cm from heel- to-toe tip, 53 cm from heel to patella, 9 cm frompatella to femur resection margin. The skin and soft ti ssue resection margin appears freshand viable. The popliteal 3 artery is remarkable for a metal stent . The foot is remarkablefor large areas of black gangrene, up to 15 cm including the fifth toe. A 3 .5 cm ulcer isnot present at the heel. Nuclear Medicine Officer sections are submitted: (A) femur marrow margin;(B) skin and soft tissue resection margin; (C) popliteal artery margin; (D) heel ulcer withb one after decal. Technical component performed at [facility],[address] [place] [address], [place] [address] Unless gross only, the diagnosis is based upon microscopic exami nation.Immunohistochemistry: This test was developed and its performance characteristicsdetermined by this laboratory. It has not been approved nor does it need approvalby the [place] FDA. Appropriate positive and negative controls are reviewed and judgedto be acceptable. This laboratory is certified vale pérez the Clinical Laboratory ImprovementAmendments (CLIA-88) as qualified to perform high complexity clin ica laboratory testing. CLINICAL INFORMATION LEFT FOOT GANGRENE Signed SIGNATURE ON FILE William Still 11/17/21 1515 END OF REPORT COVID 19 INHOUSE [id number] 13:30:00 Test Item Value Reference Range Interpretation Comments COVID 19 INHOUSE Negative Negative A negative result is AG (test code = presumptive and should be [id number]) confirmedwith a n FDA authorized mole cular assay, if necessary fo rpatient management.A po sitive result does not rule out co-infections w ithother pathogens.This test detects both viable (li ve) and non-viable,SARS -CoV, and SARS-CoV-2. Paulette t performance dep ends on theamount of vi ashley (antigen) in e sample.This paulette t has not been FDA cleare d or approved; the t est hasbeen authorized by Carmen THOMASON under an Emergency Use Authorization(E UA) for use by laboratories certified under the CLIA thatmeet the requirements to perform moderate, high or waivedcomplexit y tests. BASIC METABOLIC [id number] 07:46:00 Test Item Value Reference Range Interpretation Comments SODIUM (test code = NA) 145 mEq/L 134-147 N POTASSIUM (test code = 3.8 mEq/L 3.4-5.0 N K) CHLORIDE (test code = 107 mEq/L 100-108 N CL) CARBON DIOXIDE (test 29 mEq/l 21-33 N code = CO2) ANION GAP (test code = 13 0-20 N GAP) GLUCOSE (test code = 90 mg/dL 70-110 N GLU) BLOOD UREA NITROGEN 9 mg/dL 7-18 (test code = BUN) GLOMERULAR FILTRATION 138.4 90-95 H Units of measure = RATE (test code = GFR) ml/mi n/1.73 m2 CREATININE (test code = 0.6 mg/dL 0.6-1.3 N CREAT) CALCIUM (test code = 8.1 mg/dL 8.0-10.5 N CA) CBC W/AUTO [id number] 07:08:00 Test Item Value Reference Range Interpretation Comments WHITE BLOOD CELL (test code = 8.5 x10 3/uL 4.5-11.0 N WBC) RED BLOOD CELL (test code = 2.87 x10 6/uL 4.00-5.60 L RBC) HEMOGLOBIN (test code = HGB) 8.7 g/dL 12.5-16.9 L HEMATOCRIT (test code = HCT) 28.0 % 37.5-50.7 L MEAN CELL VOLUME (test code = 97.6 fL 81.0-99.0 N MCV) MEAN CELL HGB (test code = MCH) 30.3 pg 27.0-33.0 N MEAN CELL HGB CONCETRATION 31.1 g/dL 33.0-37.0 L (test code = MCHC) RED CELL DISTRIBUTION WIDTH CV 14.0 % 11.5-14.5 N (test code = RDW) RED CELL DISTRIBUTION WIDTH SD 49.3 fL 37.0-54.0 N (test code = RDW-SD) PLATELET COUNT (test code = 346 x10 3/uL 150-400 N PLT) MEAN PLATELET VOLUME (test code 8.8 fL 7.0-9.0 N = MPV) NEUTROPHIL % (test code = NT%) 54.9 % 56.0-77.0 L IMMATURE GRANULOCYTE % (test 0.5 % 0.0-2.0 N code = IG%) LYMPHOCYTE % (test code = LY%) 34.2 % 14.0-32.0 H MONOCYTE % (test code = MO%) 9.5 % 4.8-9.0 H EOSINOPHIL % (test code = EO%) 0.7 % 0.3-3.7 N BASOPHIL % (test code = BA%) 0.2 % 0.0-2.0 N NUCLEATED RBC % (test code = 0.0 % 0-0 N NRBC%) NEUTROPHIL # (test code = NT#) 4.66 x10 3/uL 2.0-7.6 N IMMATURE GRANULOCYTE # (test 0.04 x10 3/uL 0.00-0.03 H code = IG#) LYMPHOCYTE # (test code = LY#) 2.90 x10 3/uL 1.0-3.8 N MONOCYTE # (test code = MO#) 0.81 x10 3/uL 0.1-0.8 H EOSINOPHIL # (test code = EO#) 0.06 x10 3/uL 0.0-0.2 N BASOPHIL # (test code = BA#) 0.02 x10 3/uL 0.0-0.2 N NUCLEATED RBC # (test code = 0.00 x10 3/uL 0.0-0.1 N NRBC#) MANUAL DIFF REQUIRED (test code NO = MDIFF) PROTHROMBIN [id number] 06:19:00 Test Item Value Reference Range Interpretation Comments PROTHROMBIN TIME 13.1 SECONDS 9.3-12.9 H PATIENT (test code = PTP) INTERNATIONAL NORMAL 1.2 0.8-1.2 N TARGET RATIO (test code = INR BY IN DICATION INR) Indication INR1. Prophyl axis of venous thrombos is 2.0 - 3. 0 (orthopedic leeann shawn), Prophylaxis of venous thrombos is (other than hig h-risk surgery), Gayla tment of Deep Vein Thrombosis/Pulm onary Embolism, Preve ntion of systemic emb olism - Tissue heart va lves, Acute Myocardia l Infarction (to prevent systemic embo lism), Valvular heart disease, Atri al Fibrillation, Bileaflet mecha nical valve in aortic position.2. Mec hanical prosthetic valv es (high risk), 2.5 - 3.5 Presence of Lupus Anticoagu lant or Antiphospholi pid Antibodies, Pre vention of systemic e mbolism - Acute Myocard ial Infarction (t o prevent recurre nt infarct). BASIC METABOLIC [id number] 06:02:00 Test Item Value Reference Range Interpretation Comments SODIUM (test code = NA) 140 mEq/L 134-147 N POTASSIUM (test code = 4.1 mEq/L 3.4-5.0 N K) CHLORIDE (test code = 103 mEq/L 100-108 N CL) CARBON DIOXIDE (test 29 mEq/l 21-33 N code = CO2) ANION GAP (test code = 12 0-20 N GAP) GLUCOSE (test code = 83 mg/dL 70-110 N GLU) BLOOD UREA NITROGEN 15 mg/dL 7-18 N (test code = BUN) GLOMERULAR FILTRATION 99.3 90-95 H Units of measure = RATE (test code = GFR) ml/mi n/1.73 m2 CREATININE (test code = 0.8 mg/dL 0.6-1.3 N CREAT) CALCIUM (test code = 9.1 mg/dL 8.0-10.5 N CA) CBC W/AUTO [id number] 06:01:00 Test Item Value Reference Range Interpretation Comments WHITE BLOOD CELL (test code = 8.1 x10 3/uL 4.5-11.0 N WBC) RED BLOOD CELL (test code = 3.28 x10 6/uL 4.00-5.60 L RBC) HEMOGLOBIN (test code = HGB) 9.9 g/dL 12.5-16.9 L HEMATOCRIT (test code = HCT) 31.5 % 37.5-50.7 L MEAN CELL VOLUME (test code = 96.0 fL 81.0-99.0 N MCV) MEAN CELL HGB (test code = MCH) 30.2 pg 27.0-33.0 N MEAN CELL HGB CONCETRATION 31.4 g/dL 33.0-37.0 L (test code = MCHC) RED CELL DISTRIBUTION WIDTH CV 13.7 % 11.5-14.5 N (test code = RDW) RED CELL DISTRIBUTION WIDTH SD 48.5 fL 37.0-54.0 N (test code = RDW-SD) PLATELET COUNT (test code = 354 x10 3/uL 150-400 N PLT) MEAN PLATELET VOLUME (test code 8.9 fL 7.0-9.0 N = MPV) NEUTROPHIL % (test code = NT%) 50.3 % 56.0-77.0 L IMMATURE GRANULOCYTE % (test 0.2 % 0.0-2.0 N code = IG%) LYMPHOCYTE % (test code = LY%) 39.1 % 14.0-32.0 H MONOCYTE % (test code = MO%) 7.9 % 4.8-9.0 N EOSINOPHIL % (test code = EO%) 2.1 % 0.3-3.7 N BASOPHIL % (test code = BA%) 0.4 % 0.0-2.0 N NUCLEATED RBC % (test code = 0.0 % 0-0 N NRBC%) NEUTROPHIL # (test code = NT#) 4.07 x10 3/uL 2.0-7.6 N IMMATURE GRANULOCYTE # (test 0.02 x10 3/uL 0.00-0.03 N code = IG#) LYMPHOCYTE # (test code = LY#) 3.16 x10 3/uL 1.0-3.8 N MONOCYTE # (test code = MO#) 0.64 x10 3/uL 0.1-0.8 N EOSINOPHIL # (test code = EO#) 0.17 x10 3/uL 0.0-0.2 N BASOPHIL # (test code = BA#) 0.03 x10 3/uL 0.0-0.2 N NUCLEATED RBC # (test code = 0.00 x10 3/uL 0.0-0.1 N NRBC#) MANUAL DIFF REQUIRED (test code NO = MDIFF) GLUCOSE [id number] 05:59:00 Test Item Value Reference Range Interpretation Comments GLUCOSE BEDSIDE (test 78 MG/DL 70-110 N [facility] med by certified code = GLUBED) 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[facility] - XR CHEST 1 [id number] 00:00:00 [facility] : 1965 Sex: M FAX: Rayo Adkins DPGideon [phone] [place]: St: [facility] FAX: Camille Louise [phone] FAX: Roselia Marquez MD [phone] Name: VIKA CHEN [facility] : 1965 Age/S: 56/M [address] [place] [address] Unit #: [id number] Loc: [address] [address] Phys: Rayo Moreira DPM Acct: [id number] Dis Date: Status: ADM IN PHONE #: [phone] Exam Date: 11/12/20211856 FAX #: [phone] Reason: PRE OP EXAMS: CPT CODE: [id number] XR CHEST 1 V 22844 PROCEDURE INFORMATION: Exam: XR Chest Exam date and time: 11/12/2021 6:33 PM Age: 56 years old Clinical indication: Pre-operative exam; Respiratory screening exam; Additional info: Pre op TECHNIQUE: Imaging protocol: XR of the chest. Views: 1 view. COMPARISON: CR XR CHEST 1V 10/27/2021 11:29 PM FINDINGS: Limitations: Left lateral lung not included on study. Patient rotation to right. Lungs: There is crowding of the pulmonary vessels due to hypoinflation. No focal consolidation in the right lung is present. There is limited visualization of the lateral left lung. Pleural spaces: No pleural effusion. No pneumothorax. Heart/Mediastinum: Heart size is within normal limits. Aortic calcifications. Bones/joints: No acute a bnormality. IMPRESSION: Hypoinflated lungs. No acute consolidation or interstitialedema identified. at 0700 Reported and signed by: Faustino [place] M.D. CC: Rayo Moreira DPM; Savanna Lira MD; Roselia Burton MD Technologist: RT Clara(R) Trnscrd Date/Time/By: 11/13/2021 (07) : By: [email or web address] Orig Print D/T: S: 11/13/2021 (0700) PAGE 1 Signed ReportCOVID 19 Asymptomatic IH [id number] 10:31:00 Test Item Value Reference Range Interpretation Comments COVID 19 Asymptomatic Negative Negative A nega tive result is IH AG (test code = presumpti ve and should COVNONPUIAG) be confirmedwit h an FDA authorized mole cular assay, if neces ana forpatient eva gement.A positive result does not rule out co-inf ections withother patho gens.This test detects stevan th viable (live) and non-viable,SARS -CoV, and SARS-CoV-2. Paulette t performance dep ends on theamount of vi ashley (antigen) in th e sample.This paulette t has not been FDA cleare d or approved; the t est hasbeen authori zed by FDA under an Em ergency Use Authorizati on(EUA) for use by labo ratories certified under the CLIA thatmeet the requirements to perform moderate, high or waivedcomplexit y tests. VANCOMYCIN [id number] 05:05:00 Test Item Value Reference Range Interpretation Comments VANCOMYCIN TROUGH 15.0 mcg/mL 10.0-20.0 N 10-15 mcg/ mL - (test code = VANCT) Cellulit is, Urinary Tract Infection . 15-20 mcg/mL - Bacteremia, Infective Endocarditis, Meningitis, Osteomyelitis, Pneumonia, Su re Skin/Soft-Tissu e Infection, Sp inal Abscess. 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[facility] GLUCOSE [id number] 11:32:00 Test Item Value Reference Range Interpretation Comments GLUCOSE BEDSIDE (test 98 MG/DL 70-110 N Perfor med by certified code = GLUBED) 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[facility] GLUCOSE [id number] 07:44:00 Test Item Value Reference Range Interpretation Comments GLUCOSE BEDSIDE (test 86 MG/DL 70-110 N Perfor med by certified code = GLUBED) 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[facility] GLUCOSE [id number] 20:12:00 Test Item Value Reference Range Interpretation Comments GLUCOSE BEDSIDE (test 109 MG/DL 70-110 N Perfor med by certified code = GLUBED) 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 15-20 mcg/mL - Bacteremia, Inf ective Endocarditis, Meningitis, Osteomyelitis, Pneumonia, Su re Skin/Soft-Tissu e Infection, Spi nal Abscess. BASIC METABOLIC [id number] 14:08:00 Test Item Value Reference Range Interpretation Comments SODIUM (test code = NA) 139 mEq/L 134-147 N POTASSIUM (test code = 4.6 mEq/L 3.4-5.0 N K) CHLORIDE (test code = 99 mEq/L 100-108 L CL) CARBON DIOXIDE (test 32 mEq/l 21-33 N code = CO2) ANION GAP (test code = 13 0-20 N GAP) GLUCOSE (test code = 93 mg/dL 70-110 N GLU) BLOOD UREA NITROGEN 15 mg/dL 7-18 N (test code = BUN) GLOMERULAR FILTRATION 99.3 90-95 H Units of measure = RATE (test code = GFR) ml/mi n/1.73 m2 CREATININE (test code = 0.8 mg/dL 0.6-1.3 N CREAT) CALCIUM (test code = 9.0 mg/dL 8.0-10.5 N CA) CBC W/AUTO [id number] 13:55:00 Test Item Value Reference Range Interpretation Comments WHITE BLOOD CELL (test code = 7.3 x10 3/uL 4.5-11.0 N WBC) RED BLOOD CELL (test code = 3.27 x10 6/uL 4.00-5.60 L RBC) HEMOGLOBIN (test code = HGB) 10.0 g/dL 12.5-16.9 L HEMATOCRIT (test code = HCT) 31.3 % 37.5-50.7 L MEAN CELL VOLUME (test code = 95.7 fL 81.0-99.0 N MCV) MEAN CELL HGB (test code = MCH) 30.6 pg 27.0-33.0 N MEAN CELL HGB CONCETRATION 31.9 g/dL 33.0-37.0 L (test code = MCHC) RED CELL DISTRIBUTION WIDTH CV 13.3 % 11.5-14.5 N (test code = RDW) RED CELL DISTRIBUTION WIDTH SD 47.3 fL 37.0-54.0 N (test code = RDW-SD) PLATELET COUNT (test code = 308 x10 3/uL 150-400 N PLT) MEAN PLATELET VOLUME (test code 9.0 fL 7.0-9.0 N = MPV) NEUTROPHIL % (test code = NT%) 56.7 % 56.0-77.0 N IMMATURE GRANULOCYTE % (test 0.3 % 0.0-2.0 N code = IG%) LYMPHOCYTE % (test code = LY%) 31.6 % 14.0-32.0 N MONOCYTE % (test code = MO%) 9.3 % 4.8-9.0 H EOSINOPHIL % (test code = EO%) 1.8 % 0.3-3.7 N BASOPHIL % (test code = BA%) 0.3 % 0.0-2.0 N NUCLEATED RBC % (test code = 0.0 % 0-0 N NRBC%) NEUTROPHIL # (test code = NT#) 4.16 x10 3/uL 2.0-7.6 N IMMATURE GRANULOCYTE # (test 0.02 x10 3/uL 0.00-0.03 N code = IG#) LYMPHOCYTE # (test code = LY#) 2.31 x10 3/uL 1.0-3.8 N MONOCYTE # (test code = MO#) 0.68 x10 3/uL 0.1-0.8 N EOSINOPHIL # (test code = EO#) 0.13 x10 3/uL 0.0-0.2 N BASOPHIL # (test code = BA#) 0.02 x10 3/uL 0.0-0.2 N NUCLEATED RBC # (test code = 0.00 x10 3/uL 0.0-0.1 N NRBC#) MANUAL DIFF REQUIRED (test code NO = MDIFF) GLUCOSE [id number] 11:41:00 Test Item Value Reference Range Interpretation Comments GLUCOSE BEDSIDE (test 95 MG/DL 70-110 N Perfor med by certified code = GLUBED) 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[facility] GLUCOSE [id number] 07:36:00 Test Item Value Reference Range Interpretation Comments GLUCOSE BEDSIDE (test 83 MG/DL 70-110 N Perfor med by certified code = GLUBED) 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 15-20 mcg/mL - Bacteremia, Infective Endocarditis, Meningitis, Osteomyelitis, Pneumonia, Su re Skin/Soft-Tissu e Infection, Sp inal Abscess. 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 [id number] 09:02:00 Test Item Value Reference Range Interpretation Comments GLUCOSE BEDSIDE (test 101 MG/DL 70-110 N Perfor med by certified code = GLUBED) 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[facility] GLUCOSE [id number] 16:24:00 Test Item Value Reference Range Interpretation Comments GLUCOSE BEDSIDE (test 96 MG/DL 70-110 N Perfor med by certified code = GLUBED) 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[facility] 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 [id number] 12:34:00 Test Item Value Reference Range Interpretation Comments GLUCOSE BEDSIDE (test 93 MG/DL 70-110 N Perfor med by certified code = GLUBED) 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[facility] GLUCOSE [id number] 07:59:00 Test Item Value Reference Range Interpretation Comments GLUCOSE BEDSIDE (test 87 MG/DL 70-110 N Perfor med by certified code = GLUBED) 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[facility] BLOOD UREA [id number] 04:11:00 Test Item Value Reference Range Interpretation Comments BLOOD UREA NITROGEN (test code = 13 mg/dL 7-18 BUN) [id number] 04:11:00 Test Item Value Reference Range Interpretation Comments CREATININE (test code = CREAT) 0.7 mg/dL 0.6-1.3 N GLUCOSE [id number] 20:35:00 Test Item Value Reference Range Interpretation Comments GLUCOSE BEDSIDE (test 106 MG/DL 70-110 N Perfor med by certified code = GLUBED) 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[facility] GLUCOSE [id number] 16:32:00 Test Item Value Reference Range Interpretation Comments GLUCOSE BEDSIDE (test 109 MG/DL 70-110 N Perfor med by certified code = GLUBED) 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[facility] COMPREHENSIVE METABOLIC [id number] 16:02:00 Test Item Value Reference Range Interpretation Comments SODIUM (test code = NA) 137 mEq/L 134-147 N POTASSIUM (test code = 4.2 mEq/L 3.4-5.0 N K) CHLORIDE (test code = 103 mEq/L 100-108 N CL) CARBON DIOXIDE (test 28 mEq/l 21-33 N code = CO2) ANION GAP (test code = 10 0-20 N GAP) GLUCOSE (test code = 120 mg/dL 70-110 H GLU) BLOOD UREA NITROGEN 9 mg/dL 7-18 N (test code = BUN) GLOMERULAR FILTRATION 99.3 90-95 H Units of measure = RATE (test code = GFR) ml/mi n/1.73 m2 CREATININE (test code = 0.8 mg/dL 0.6-1.3 N CREAT) TOTAL PROTEIN (test 6.6 g/dL 6.4-8.2 N code = PROT) ALBUMIN (test code = 2.60 g/dL 3.4-5.0 L ALB) CALCIUM (test code = 8.6 mg/dL 8.0-10.5 N CA) BILIRUBIN TOTAL (test 0.30 mg/dL 0.0-1.0 N code = BILT) SGOT/AST (test code = 32 IUnit/L 15-37 N AST) SGPT/ALT (test code = 27 IUnit/L 30-65 L ALT) ALKALINE PHOSPHATASE 63 IUnit/L 20-125 N TOTAL (test code = ALKP) GLUCOSE [id number] 12:00:00 Test Item Value Reference Range Interpretation Comments GLUCOSE BEDSIDE (test 105 MG/DL 70-110 N Perfor med by certified code = GLUBED) 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[facility] GLUCOSE [id number] 07:18:00 Test Item Value Reference Range Interpretation Comments GLUCOSE BEDSIDE (test 85 MG/DL 70-110 N Perfor med by certified code = GLUBED) 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 15-20 mcg/mL - Bacteremia, Infective Endocarditis, Meningitis, Osteomyelitis, Pneumonia, Su re Skin/Soft-Tissu e Infection, Sp inal Abscess. 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[facility] GLUCOSE [id number] 06:48:00 Test Item Value Reference Range Interpretation Comments GLUCOSE BEDSIDE (test 75 MG/DL 70-110 N Perfor med by certified code = GLUBED) 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[facility] GLUCOSE [id number] 19:41:00 Test Item Value Reference Range Interpretation Comments GLUCOSE BEDSIDE (test 98 MG/DL 70-110 N Perfor med by certified code = GLUBED) 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[facility] GLUCOSE [id number] 17:07:00 Test Item Value Reference Range Interpretation Comments GLUCOSE BEDSIDE (test 87 MG/DL 70-110 N Perfor med by certified code = GLUBED) 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[facility] GLUCOSE [id number] 12:34:00 Test Item Value Reference Range Interpretation Comments GLUCOSE BEDSIDE (test 105 MG/DL 70-110 N Perfor med by certified code = GLUBED) 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[facility] GLUCOSE [id number] 09:08:00 Test Item Value Reference Range Interpretation Comments GLUCOSE BEDSIDE (test 130 MG/DL 70-110 H Perfor med by certified code = GLUBED) 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[facility] BASIC METABOLIC [id number] 08:05:00 Test Item Value Reference Range Interpretation Comments SODIUM (test code = NA) 136 mEq/L 134-147 N POTASSIUM (test code = 3.9 mEq/L 3.4-5.0 N K) CHLORIDE (test code = 104 mEq/L 100-108 N CL) CARBON DIOXIDE (test 23 mEq/l 21-33 N code = CO2) ANION GAP (test code = 13 0-20 N GAP) GLUCOSE (test code = 81 mg/dL 70-110 N GLU) BLOOD UREA NITROGEN 11 mg/dL 7-18 N (test code = BUN) GLOMERULAR FILTRATION 99.3 90-95 H Units of measure = RATE (test code = GFR) ml/mi n/1.73 m2 CREATININE (test code = 0.8 mg/dL 0.6-1.3 N CREAT) CALCIUM (test code = 9.1 mg/dL 8.0-10.5 N CA) CBC W/AUTO [id number] 07:49:00 Test Item Value Reference Range Interpretation Comments WHITE BLOOD CELL (test code = 7.2 x10 3/uL 4.5-11.0 WBC) RED BLOOD CELL (test code = 3.43 x10 6/uL 4.00-5.60 L RBC) HEMOGLOBIN (test code = HGB) 10.8 g/dL 12.5-16.9 L HEMATOCRIT (test code = HCT) 34.4 % 37.5-50.7 L MEAN CELL VOLUME (test code = 100.3 fL 81.0-99.0 H MCV) MEAN CELL HGB (test code = MCH) 31.5 pg 27.0-33.0 N MEAN CELL HGB CONCETRATION 31.4 g/dL 33.0-37.0 L (test code = MCHC) RED CELL DISTRIBUTION WIDTH CV 13.4 % 11.5-14.5 N (test code = RDW) RED CELL DISTRIBUTION WIDTH SD 49.7 fL 37.0-54.0 N (test code = RDW-SD) PLATELET COUNT (test code = 247 x10 3/uL 150-400 N PLT) MEAN PLATELET VOLUME (test code 9.1 fL 7.0-9.0 H = MPV) NEUTROPHIL % (test code = NT%) 66.4 % 56.0-77.0 N IMMATURE GRANULOCYTE % (test 0.3 % 0.0-2.0 N code = IG%) LYMPHOCYTE % (test code = LY%) 25.9 % 14.0-32.0 N MONOCYTE % (test code = MO%) 5.7 % 4.8-9.0 N EOSINOPHIL % (test code = EO%) 1.3 % 0.3-3.7 N BASOPHIL % (test code = BA%) 0.4 % 0.0-2.0 N NUCLEATED RBC % (test code = 0.0 % 0-0 N NRBC%) NEUTROPHIL # (test code = NT#) 4.75 x10 3/uL 2.0-7.6 N IMMATURE GRANULOCYTE # (test 0.02 x10 3/uL 0.00-0.03 N code = IG#) LYMPHOCYTE # (test code = LY#) 1.85 x10 3/uL 1.0-3.8 N MONOCYTE # (test code = MO#) 0.41 x10 3/uL 0.1-0.8 N EOSINOPHIL # (test code = EO#) 0.09 x10 3/uL 0.0-0.2 N BASOPHIL # (test code = BA#) 0.03 x10 3/uL 0.0-0.2 N NUCLEATED RBC # (test code = 0.00 x10 3/uL 0.0-0.1 N NRBC#) MANUAL DIFF REQUIRED (test code NO = MDIFF) GLUCOSE [id number] 21:23:00 Test Item Value Reference Range Interpretation Comments GLUCOSE BEDSIDE (test 91 MG/DL 70-110 N Perfor med by certified code = GLUBED) 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[facility] GLUCOSE [id number] 16:42:00 Test Item Value Reference Range Interpretation Comments GLUCOSE BEDSIDE (test 89 MG/DL 70-110 N Perfor med by certified code = GLUBED) 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[facility] GLUCOSE [id number] 12:20:00 Test Item Value Reference Range Interpretation Comments GLUCOSE BEDSIDE (test 74 MG/DL 70-110 N Perfor med by certified code = GLUBED) 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[facility] GLUCOSE [id number] 22:34:00 Test Item Value Reference Range Interpretation Comments GLUCOSE BEDSIDE (test 98 MG/DL 70-110 N Perfor med by certified code = GLUBED) 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[facility] GLUCOSE [id number] 15:35:00 Test Item Value Reference Range Interpretation Comments GLUCOSE BEDSIDE (test 106 MG/DL 70-110 N Perfor med by certified code = GLUBED) 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[facility] GLUCOSE [id number] 07:51:00 Test Item Value Reference Range Interpretation Comments GLUCOSE BEDSIDE (test 110 MG/DL 70-110 N Perfor med by certified code = GLUBED) 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[facility] CBC W/AUTO [id number] 07:02:00 Test Item Value Reference Range Interpretation Comments WHITE BLOOD CELL (test code = 13.4 x10 3/uL 4.5-11.0 H WBC) RED BLOOD CELL (test code = 3.78 x10 6/uL 4.00-5.60 L RBC) HEMOGLOBIN (test code = HGB) 11.4 g/dL 12.5-16.9 L HEMATOCRIT (test code = HCT) 36.4 % 37.5-50.7 L MEAN CELL VOLUME (test code = 96.3 fL 81.0-99.0 N MCV) MEAN CELL HGB (test code = 30.2 pg 27.0-33.0 N MCH) MEAN CELL HGB CONCETRATION 31.3 g/dL 33.0-37.0 L (test code = MCHC) RED CELL DISTRIBUTION WIDTH CV 13.2 % 11.5-14.5 N (test code = RDW) RED CELL DISTRIBUTION WIDTH SD 47.0 fL 37.0-54.0 N (test code = RDW-SD) PLATELET COUNT (test code = 363 x10 3/uL 150-400 N PLT) MEAN PLATELET VOLUME (test 9.1 fL 7.0-9.0 H code = MPV) NEUTROPHIL % (test code = NT%) 76.7 % 56.0-77.0 N IMMATURE GRANULOCYTE % (test 0.4 % 0.0-2.0 N code = IG%) LYMPHOCYTE % (test code = LY%) 17.2 % 14.0-32.0 N MONOCYTE % (test code = MO%) 5.4 % 4.8-9.0 N EOSINOPHIL % (test code = EO%) 0.1 % 0.3-3.7 L BASOPHIL % (test code = BA%) 0.2 % 0.0-2.0 N NUCLEATED RBC % (test code = 0.0 % 0-0 N NRBC%) NEUTROPHIL # (test code = NT#) 10.27 x10 3/uL 2.0-7.6 H IMMATURE GRANULOCYTE # (test 0.05 x10 3/uL 0.00-0.03 H code = IG#) LYMPHOCYTE # (test code = LY#) 2.31 x10 3/uL 1.0-3.8 N MONOCYTE # (test code = MO#) 0.73 x10 3/uL 0.1-0.8 N EOSINOPHIL # (test code = EO#) 0.01 x10 3/uL 0.0-0.2 N BASOPHIL # (test code = BA#) 0.03 x10 3/uL 0.0-0.2 N NUCLEATED RBC # (test code = 0.00 x10 3/uL 0.0-0.1 N NRBC#) MANUAL DIFF REQUIRED (test NO code = MDIFF) BASIC METABOLIC [id number] 06:15:00 Test Item Value Reference Range Interpretation Comments SODIUM (test code = NA) 137 mEq/L 134-147 N POTASSIUM (test code = 4.1 mEq/L 3.4-5.0 N K) CHLORIDE (test code = 103 mEq/L 100-108 N CL) CARBON DIOXIDE (test 27 mEq/l 21-33 N code = CO2) ANION GAP (test code = 11 0-20 N GAP) GLUCOSE (test code = 109 mg/dL 70-110 N GLU) BLOOD UREA NITROGEN 17 mg/dL 7-18 N (test code = BUN) GLOMERULAR FILTRATION 99.3 90-95 H Units of measure = RATE (test code = GFR) ml/mi n/1.73 m2 CREATININE (test code = 0.8 mg/dL 0.6-1.3 N CREAT) CALCIUM (test code = 9.0 mg/dL 8.0-10.5 N CA) VALPROIC ACID (DEPAKENE)2021-11-03 06:15:00 Test Item Value Reference Range Interpretation Comments VALPROIC ACID (DEPAKENE) (test code 21 MCG/ML 50.0-100.0 L = VALP) GLUCOSE [id number] 20:02:00 Test Item Value Reference Range Interpretation Comments GLUCOSE BEDSIDE (test 98 MG/DL 70-110 N Perfor med by certified code = GLUBED) 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[facility] GLUCOSE [id number] 16:08:00 Test Item Value Reference Range Interpretation Comments GLUCOSE BEDSIDE (test 83 MG/DL 70-110 N Perfor med by certified code = GLUBED) 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[facility] GLUCOSE [id number] 12:05:00 Test Item Value Reference Range Interpretation Comments GLUCOSE BEDSIDE (test 90 MG/DL 70-110 N Perfor med by certified code = GLUBED) 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[facility] GLUCOSE [id number] 09:59:00 Test Item Value Reference Range Interpretation Comments GLUCOSE BEDSIDE (test 75 MG/DL 70-110 N Perfor med by certified code = GLUBED) 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[facility] GLUCOSE [id number] 08:47:00 Test Item Value Reference Range Interpretation Comments GLUCOSE BEDSIDE (test 71 MG/DL 70-110 N Perfor med by certified code = GLUBED) 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[facility] GLUCOSE [id number] 08:16:00 Test Item Value Reference Range Interpretation Comments GLUCOSE BEDSIDE (test 59 MG/DL 70-110 L Perfor med by certified code = GLUBED) 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[facility] BASIC METABOLIC [id number] 07:59:00 Test Item Value Reference Range Interpretation Comments SODIUM (test code = NA) 137 mEq/L 134-147 N POTASSIUM (test code = 3.8 mEq/L 3.4-5.0 N K) CHLORIDE (test code = 102 mEq/L 100-108 N CL) CARBON DIOXIDE (test 28 mEq/l 21-33 N code = CO2) ANION GAP (test code = 11 0-20 N GAP) GLUCOSE (test code = 93 mg/dL 70-110 N GLU) BLOOD UREA NITROGEN 16 mg/dL 7-18 N (test code = BUN) GLOMERULAR FILTRATION 86.7 90-95 L Units of measure = RATE (test code = GFR) ml/mi n/1.73 m2 CREATININE (test code = 0.9 mg/dL 0.6-1.3 N CREAT) CALCIUM (test code = 9.1 mg/dL 8.0-10.5 N CA) CBC W/AUTO [id number] 07:49:00 Test Item Value Reference Range Interpretation Comments WHITE BLOOD CELL (test code = 10.2 x10 3/uL 4.5-11.0 N WBC) RED BLOOD CELL (test code = 3.73 x10 6/uL 4.00-5.60 L RBC) HEMOGLOBIN (test code = HGB) 11.5 g/dL 12.5-16.9 L HEMATOCRIT (test code = HCT) 35.9 % 37.5-50.7 L MEAN CELL VOLUME (test code = 96.2 fL 81.0-99.0 N MCV) MEAN CELL HGB (test code = MCH) 30.8 pg 27.0-33.0 N MEAN CELL HGB CONCETRATION 32.0 g/dL 33.0-37.0 L (test code = MCHC) RED CELL DISTRIBUTION WIDTH CV 13.3 % 11.5-14.5 N (test code = RDW) PLATELET COUNT (test code = 334 x10 3/uL 150-400 N PLT) NEUTROPHIL % (test code = NT%) 63.6 % 56.0-77.0 N LYMPHOCYTE % (test code = LY%) 27.7 % 14.0-32.0 N NEUTROPHIL # (test code = NT#) 6.51 x10 3/uL 2.0-7.6 N LYMPHOCYTE # (test code = LY#) 2.83 x10 3/uL 1.0-3.8 N MANUAL DIFF REQUIRED (test code NO = MDIFF) RED CELL DISTRIBUTION WIDTH SD 47.2 fL 37.0-54.0 N (test code = RDW-SD) MEAN PLATELET VOLUME (test code 9.2 fL 7.0-9.0 H = MPV) IMMATURE GRANULOCYTE % (test 0.3 % 0.0-2.0 N code = IG%) MONOCYTE % (test code = MO%) 6.8 % 4.8-9.0 N EOSINOPHIL % (test code = EO%) 1.2 % 0.3-3.7 N BASOPHIL % (test code = BA%) 0.4 % 0.0-2.0 N NUCLEATED RBC % (test code = 0.0 % 0-0 N NRBC%) IMMATURE GRANULOCYTE # (test 0.03 x10 3/uL 0.00-0.03 N code = IG#) MONOCYTE # (test code = MO#) 0.70 x10 3/uL 0.1-0.8 N EOSINOPHIL # (test code = EO#) 0.12 x10 3/uL 0.0-0.2 N BASOPHIL # (test code = BA#) 0.04 x10 3/uL 0.0-0.2 N NUCLEATED RBC # (test code = 0.00 x10 3/uL 0.0-0.1 N NRBC#) COVID 19 Asymptomatic IH [id number] 06:23:00 Test Item Value Reference Range Interpretation Comments COVID 19 Asymptomatic Negative Negative A nega tive result is IH AG (test code = presumpti ve and should COVNONPUIAG) be confirmedwit h an FDA authorized mole cular assay, if neces ana forpatient eva gement.A positive result does not rule out co-inf ections withother patho gens.This test detects stevan th viable (live) and non-viable,SARS -CoV, and SARS-CoV-2. Paulette t performance dep ends on theamount of vi ashley (antigen) in th e sample.This paulette t has not been FDA cleare d or approved; the t est hasbeen authori zed by FDA under an Em ergency Use Authorizati on(EUA) for use by labo ratories certified under the CLIA thatmeet the requirements to perform moderate, high or waivedcomplexit y tests. 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 15-20 mcg/mL - Bacteremia, Infective Endocarditis, Meningitis, Osteomyelitis, Pneumonia, Su re Skin/Soft-Tissu e Infection, Sp inal Abscess. 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[facility] CBC W/AUTO [id number] 09:05:00 Test Item Value Reference Range Interpretation Comments WHITE BLOOD CELL (test code = 11.9 x10 3/uL 4.5-11.0 H WBC) RED BLOOD CELL (test code = 4.04 x10 6/uL 4.00-5.60 N RBC) HEMOGLOBIN (test code = HGB) 12.5 g/dL 12.5-16.9 N HEMATOCRIT (test code = HCT) 38.9 % 37.5-50.7 N MEAN CELL VOLUME (test code = 96.3 fL 81.0-99.0 N MCV) MEAN CELL HGB (test code = MCH) 30.9 pg 27.0-33.0 N MEAN CELL HGB CONCETRATION 32.1 g/dL 33.0-37.0 L (test code = MCHC) RED CELL DISTRIBUTION WIDTH CV 13.2 % 11.5-14.5 N (test code = RDW) PLATELET COUNT (test code = 309 x10 3/uL 150-400 N PLT) NEUTROPHIL % (test code = NT%) 73.4 % 56.0-77.0 N LYMPHOCYTE % (test code = LY%) 18.6 % 14.0-32.0 N NEUTROPHIL # (test code = NT#) 8.75 x10 3/uL 2.0-7.6 H LYMPHOCYTE # (test code = LY#) 2.21 x10 3/uL 1.0-3.8 N MANUAL DIFF REQUIRED (test code NO = MDIFF) RED CELL DISTRIBUTION WIDTH SD 47.1 fL 37.0-54.0 N (test code = RDW-SD) MEAN PLATELET VOLUME (test code 8.7 fL 7.0-9.0 N = MPV) IMMATURE GRANULOCYTE % (test 0.3 % 0.0-2.0 N code = IG%) MONOCYTE % (test code = MO%) 7.1 % 4.8-9.0 N EOSINOPHIL % (test code = EO%) 0.3 % 0.3-3.7 N BASOPHIL % (test code = BA%) 0.3 % 0.0-2.0 N NUCLEATED RBC % (test code = 0.0 % 0-0 N NRBC%) IMMATURE GRANULOCYTE # (test 0.04 x10 3/uL 0.00-0.03 H code = IG#) MONOCYTE # (test code = MO#) 0.84 x10 3/uL 0.1-0.8 H EOSINOPHIL # (test code = EO#) 0.03 x10 3/uL 0.0-0.2 N BASOPHIL # (test code = BA#) 0.04 x10 3/uL 0.0-0.2 N NUCLEATED RBC # (test code = 0.00 x10 3/uL 0.0-0.1 N NRBC#) GLUCOSE [id number] 08:31:00 Test Item Value Reference Range Interpretation Comments GLUCOSE BEDSIDE (test 104 MG/DL 70-110 N [facility] med by certified code = GLUBED) 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[facility] BASIC METABOLIC [id number] 07:54:00 Test Item Value Reference Range Interpretation Comments SODIUM (test code = NA) 137 mEq/L 134-147 N POTASSIUM (test code = 3.9 mEq/L 3.4-5.0 N K) CHLORIDE (test code = 102 mEq/L 100-108 N CL) CARBON DIOXIDE (test 26 mEq/l 21-33 N code = CO2) ANION GAP (test code = 13 0-20 N GAP) GLUCOSE (test code = 108 mg/dL 70-110 N GLU) BLOOD UREA NITROGEN 17 mg/dL 7-18 N (test code = BUN) GLOMERULAR FILTRATION 99.3 90-95 H Units of measure = RATE (test code = GFR) ml/mi n/1.73 m2 CREATININE (test code = 0.8 mg/dL 0.6-1.3 N CREAT) CALCIUM (test code = 9.5 mg/dL 8.0-10.5 N CA) GLUCOSE [id number] 21:02:00 Test Item Value Reference Range Interpretation Comments GLUCOSE BEDSIDE (test 118 MG/DL 70-110 H Perfor med by certified code = GLUBED) 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5-11.0 N WBC) RED BLOOD CELL (test code = 3.72 x10 6/uL 4.00-5.60 L RBC) HEMOGLOBIN (test code = HGB) 11.5 g/dL 12.5-16.9 L HEMATOCRIT (test code = HCT) 35.7 % 37.5-50.7 L MEAN CELL VOLUME (test code = 96.0 fL 81.0-99.0 N MCV) MEAN CELL HGB (test code = MCH) 30.9 pg 27.0-33.0 N MEAN CELL HGB CONCETRATION 32.2 g/dL 33.0-37.0 L (test code = MCHC) RED CELL DISTRIBUTION WIDTH CV 13.1 % 11.5-14.5 N (test code = RDW) PLATELET COUNT (test code = 335 x10 3/uL 150-400 N PLT) NEUTROPHIL % (test code = NT%) 67.9 % 56.0-77.0 N LYMPHOCYTE % (test code = LY%) 22.8 % 14.0-32.0 N NEUTROPHIL # (test code = NT#) 6.30 x10 3/uL 2.0-7.6 N LYMPHOCYTE # (test code = LY#) 2.12 x10 3/uL 1.0-3.8 N MANUAL DIFF REQUIRED (test code NO = MDIFF) RED CELL DISTRIBUTION WIDTH SD 46.5 fL 37.0-54.0 N (test code = RDW-SD) MEAN PLATELET VOLUME (test code 9.1 fL 7.0-9.0 H = MPV) IMMATURE GRANULOCYTE % (test 0.2 % 0.0-2.0 N code = IG%) MONOCYTE % (test code = MO%) 7.0 % 4.8-9.0 N EOSINOPHIL % (test code = EO%) 1.7 % 0.3-3.7 N BASOPHIL % (test code = BA%) 0.4 % 0.0-2.0 N NUCLEATED RBC % (test code = 0.0 % 0-0 N NRBC%) IMMATURE GRANULOCYTE # (test 0.02 x10 3/uL 0.00-0.03 N code = IG#) MONOCYTE # (test code = MO#) 0.65 x10 3/uL 0.1-0.8 N EOSINOPHIL # (test code = EO#) 0.16 x10 3/uL 0.0-0.2 N BASOPHIL # (test code = BA#) 0.04 x10 3/uL 0.0-0.2 N NUCLEATED RBC # (test code = 0.00 x10 3/uL 0.0-0.1 N NRBC#) GLUCOSE [id number] 07:51:00 Test Item Value Reference Range Interpretation Comments GLUCOSE BEDSIDE (test 103 MG/DL 70-110 N [facility] med by certified code = GLUBED) 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[facility] BASIC METABOLIC [id number] 07:34:00 Test Item Value Reference Range Interpretation Comments SODIUM (test code = NA) 135 mEq/L 134-147 N POTASSIUM (test code = 3.8 mEq/L 3.4-5.0 N K) CHLORIDE (test code = 102 mEq/L 100-108 N CL) CARBON DIOXIDE (test 25 mEq/l 21-33 N code = CO2) ANION GAP (test code = 11 0-20 N GAP) GLUCOSE (test code = 143 mg/dL 70-110 H GLU) BLOOD UREA NITROGEN 15 mg/dL 7-18 N (test code = BUN) GLOMERULAR FILTRATION 86.7 90-95 L Units of measure = RATE (test code = GFR) ml/mi n/1.73 m2 CREATININE (test code = 0.9 mg/dL 0.6-1.3 CREAT) CALCIUM (test code = 8.9 mg/dL 8.0-10.5 N CA) GLUCOSE [id number] 20:06:00 Test Item Value Reference Range Interpretation Comments GLUCOSE BEDSIDE (test 138 MG/DL 70-110 H Perfor med by certified code = GLUBED) 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 15-20 mcg/mL - Bacteremia, Infective Endocarditis, Meningitis, Osteomyelitis, Pneumonia, Su re Skin/Soft-Tissu e Infection, Sp inal Abscess. 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[facility] BASIC METABOLIC [id number] 08:03:00 Test Item Value Reference Range Interpretation Comments SODIUM (test code = NA) 137 mEq/L 134-147 N POTASSIUM (test code = 3.9 mEq/L 3.4-5.0 N K) CHLORIDE (test code = 103 mEq/L 100-108 N CL) CARBON DIOXIDE (test 26 mEq/l 21-33 N code = CO2) ANION GAP (test code = 11 0-20 N GAP) GLUCOSE (test code = 79 mg/dL 70-110 N GLU) BLOOD UREA NITROGEN 14 mg/dL 7-18 (test code = BUN) GLOMERULAR FILTRATION 115.8 90-95 H Units of measure = RATE (test code = GFR) ml/mi n/1.73 m2 CREATININE (test code = 0.7 mg/dL 0.6-1.3 N CREAT) CALCIUM (test code = 8.8 mg/dL 8.0-10.5 N CA) GLUCOSE [id number] 07:23:00 Test Item Value Reference Range Interpretation Comments GLUCOSE BEDSIDE (test 82 MG/DL 70-110 N Perfor med by certified code = GLUBED) 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[facility] CBC W/AUTO [id number] 07:22:00 Test Item Value Reference Range Interpretation Comments WHITE BLOOD CELL (test code = 8.2 x10 3/uL 4.5-11.0 N WBC) RED BLOOD CELL (test code = 3.58 x10 6/uL 4.00-5.60 L RBC) HEMOGLOBIN (test code = HGB) 11.2 g/dL 12.5-16.9 L HEMATOCRIT (test code = HCT) 34.2 % 37.5-50.7 L MEAN CELL VOLUME (test code = 95.5 fL 81.0-99.0 N MCV) MEAN CELL HGB (test code = MCH) 31.3 pg 27.0-33.0 N MEAN CELL HGB CONCETRATION 32.7 g/dL 33.0-37.0 L (test code = MCHC) RED CELL DISTRIBUTION WIDTH CV 13.0 % 11.5-14.5 N (test code = RDW) PLATELET COUNT (test code = 322 x10 3/uL 150-400 N PLT) NEUTROPHIL % (test code = NT%) 57.6 % 56.0-77.0 N LYMPHOCYTE % (test code = LY%) 30.7 % 14.0-32.0 N NEUTROPHIL # (test code = NT#) 4.69 x10 3/uL 2.0-7.6 N LYMPHOCYTE # (test code = LY#) 2.50 x10 3/uL 1.0-3.8 N MANUAL DIFF REQUIRED (test code NO = MDIFF) RED CELL DISTRIBUTION WIDTH SD 45.3 fL 37.0-54.0 N (test code = RDW-SD) MEAN PLATELET VOLUME (test code 9.2 fL 7.0-9.0 H = MPV) IMMATURE GRANULOCYTE % (test 0.2 % 0.0-2.0 N code = IG%) MONOCYTE % (test code = MO%) 9.3 % 4.8-9.0 H EOSINOPHIL % (test code = EO%) 1.7 % 0.3-3.7 N BASOPHIL % (test code = BA%) 0.5 % 0.0-2.0 N NUCLEATED RBC % (test code = 0.0 % 0-0 N NRBC%) IMMATURE GRANULOCYTE # (test 0.02 x10 3/uL 0.00-0.03 N code = IG#) MONOCYTE # (test code = MO#) 0.76 x10 3/uL 0.1-0.8 N EOSINOPHIL # (test code = EO#) 0.14 x10 3/uL 0.0-0.2 N BASOPHIL # (test code = BA#) 0.04 x10 3/uL 0.0-0.2 N NUCLEATED RBC # (test code = 0.00 x10 3/uL 0.0-0.1 N NRBC#) GLUCOSE [id number] 22:30:00 Test Item Value Reference Range Interpretation Comments GLUCOSE BEDSIDE (test 187 MG/DL 70-110 H Perfor med by certified code = GLUBED) 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[facility] GLUCOSE [id number] 20:31:00 Test Item Value Reference Range Interpretation Comments GLUCOSE BEDSIDE (test 57 MG/DL 70-110 L Perfor med by certified code = GLUBED) 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[facility] GLUCOSE [id number] 16:56:00 Test Item Value Reference Range Interpretation Comments GLUCOSE BEDSIDE (test 100 MG/DL 70-110 N Perfor med by certified code = GLUBED) 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[facility] [id number] 08:32:00 Test Item Value Reference Range Interpretation Comments HGBA1C% (test code = HGBA1C%) 5.6 %A1C 4.8-6.0 N BASIC METABOLIC [id number] 08:08:00 Test Item Value Reference Range Interpretation Comments SODIUM (test code = NA) 135 mEq/L 134-147 N POTASSIUM (test code = 4.3 mEq/L 3.4-5.0 N K) CHLORIDE (test code = 100 mEq/L 100-108 N CL) CARBON DIOXIDE (test 29 mEq/l 21-33 N code = CO2) ANION GAP (test code = 11 0-20 N GAP) GLUCOSE (test code = 90 mg/dL 70-110 N GLU) BLOOD UREA NITROGEN 19 mg/dL 7-18 H (test code = BUN) GLOMERULAR FILTRATION 99.3 90-95 H Units of measure = RATE (test code = GFR) ml/mi n/1.73 m2 CREATININE (test code = 0.8 mg/dL 0.6-1.3 N CREAT) CALCIUM (test code = 8.4 mg/dL 8.0-10.5 N CA) Indication for Test: Malabsorption/MalnutritioLIPID PROFILE (CORONARY RISK) 2021-10-29 08:08:00 Test Item Value Reference Range Interpretation Comments TRIGLYCERIDES (test 104 mg/dL 40-150 N code = TRIG) CHOLESTEROL (test 108 mg/dL <200 code = CHOL) CHOLESTEROL/HDL 3.70 RATIO 3.43-4.97 N RISK ASSOCIA CHEN WITH RATIO (test code = CHOL/HDL RATIOS: RISK CHOLHDL) MALE FEMALE1/2 AVERA GE 3.43 3.27AVERAGE 4.97 4.4 42X AVERAGE 9.55 7.053X AVER AGE 23.39 1 1.04 NOTE THAT THE R EFERENCE VALUE IS RELATE DTO RISK LEVELS RECOM MENDED BY THE NATL.HEA RT, LUNG, AND BLOOD INST. HDL CHOLESTEROL 29.2 mg/dL 32-72 L (test code = HDL) LIPOPROTEIN LDL 62.1 mg/dL 0-100 N <100 OPT CMXQ051-052 (test code = LDL) NEAR OPTI MAL/ABOVE [id number] 89 HIGH>CZ=257 VE RY HIGH*Guidelines provided by the National Choles terol EducationProgra m Adult Treatment Panel III Indication for Test: Malabsorption/MalnutritioT4 [id number] 08:08:00 Test Item Value Reference Range Interpretation Comments T4 FREE (test code = T4F) 1.1 ng/dL 0.77-1.61 N Indication for Test: Malabsorption/MalnutritioTHYROID STIMULATING HORMONE 2021-10-29 08:08:00 Test Item Value Reference Range Interpretation Comments THYROID STIMULATING 3.95 0.42-5.47 N Results in HORMONE (test code = TSH) mi lli-International Units/mL Indication for Test: Malabsorption/MalnutritioVITAMIN D [id number] 08:08:00 Test Item Value Reference Range Interpretation Comments VITAMIN D 25-HYDROXY (test code = 25.2 ng/mL 30-100 L VITD25) Indication for Test: Malabsorption/MalnutritioCBC W/AUTO [id number] 07:33:00 Test Item Value Reference Range Interpretation Comments WHITE BLOOD CELL (test code = 10.0 x10 3/uL 4.5-11.0 N WBC) RED BLOOD CELL (test code = 3.86 x10 6/uL 4.00-5.60 L RBC) HEMOGLOBIN (test code = HGB) 12.3 g/dL 12.5-16.9 L HEMATOCRIT (test code = HCT) 37.1 % 37.5-50.7 L MEAN CELL VOLUME (test code = 96.1 fL 81.0-99.0 N MCV) MEAN CELL HGB (test code = MCH) 31.9 pg 27.0-33.0 N MEAN CELL HGB CONCETRATION 33.2 g/dL 33.0-37.0 N (test code = MCHC) RED CELL DISTRIBUTION WIDTH CV 13.2 % 11.5-14.5 N (test code = RDW) RED CELL DISTRIBUTION WIDTH SD 46.9 fL 37.0-54.0 N (test code = RDW-SD) PLATELET COUNT (test code = 349 x10 3/uL 150-400 N PLT) MEAN PLATELET VOLUME (test code 9.0 fL 7.0-9.0 N = MPV) NEUTROPHIL % (test code = NT%) 72.3 % 56.0-77.0 N IMMATURE GRANULOCYTE % (test 0.4 % 0.0-2.0 N code = IG%) LYMPHOCYTE % (test code = LY%) 18.1 % 14.0-32.0 N MONOCYTE % (test code = MO%) 8.2 % 4.8-9.0 N EOSINOPHIL % (test code = EO%) 0.7 % 0.3-3.7 N BASOPHIL % (test code = BA%) 0.3 % 0.0-2.0 N NUCLEATED RBC % (test code = 0.0 % 0-0 N NRBC%) NEUTROPHIL # (test code = NT#) 7.20 x10 3/uL 2.0-7.6 N IMMATURE GRANULOCYTE # (test 0.04 x10 3/uL 0.00-0.03 H code = IG#) LYMPHOCYTE # (test code = LY#) 1.80 x10 3/uL 1.0-3.8 N MONOCYTE # (test code = MO#) 0.82 x10 3/uL 0.1-0.8 H EOSINOPHIL # (test code = EO#) 0.07 x10 3/uL 0.0-0.2 N BASOPHIL # (test code = BA#) 0.03 x10 3/uL 0.0-0.2 N NUCLEATED RBC # (test code = 0.00 x10 3/uL 0.0-0.1 N NRBC#) MANUAL DIFF REQUIRED (test code NO = MDIFF) GLUCOSE [id number] 06:41:00 Test Item Value Reference Range Interpretation Comments GLUCOSE BEDSIDE (test 68 MG/DL 70-110 L Perfor med by certified code = GLUBED) 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[facility] GLUCOSE [id number] 21:16:00 Test Item Value Reference Range Interpretation Comments GLUCOSE BEDSIDE (test 114 MG/DL 70-110 H Perfor med by certified code = GLUBED) 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[facility] GLUCOSE [id number] 19:47:00 Test Item Value Reference Range Interpretation Comments GLUCOSE BEDSIDE (test 82 MG/DL 70-110 N Perfor med by certified code = GLUBED) 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[facility] GLUCOSE [id number] 18:43:00 Test Item Value Reference Range Interpretation Comments GLUCOSE BEDSIDE (test 66 MG/DL 70-110 L Perfor med by certified code = GLUBED) 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[facility] GLUCOSE [id number] 13:46:00 Test Item Value Reference Range Interpretation Comments GLUCOSE BEDSIDE (test 85 MG/DL 70-110 N Perfor med by certified code = GLUBED) 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[facility] GLUCOSE [id number] 13:11:00 Test Item Value Reference Range Interpretation Comments GLUCOSE BEDSIDE (test 55 MG/DL 70-110 L Perfor med by certified code = GLUBED) 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[facility] GLUCOSE [id number] 09:02:00 Test Item Value Reference Range Interpretation Comments GLUCOSE BEDSIDE (test 95 MG/DL 70-110 N Perfor med by certified code = GLUBED) 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[facility] SED RATE [id number] 07:08:00 Test Item Value Reference Range Interpretation Comments SED RATE WESTERGREN (test code = 87 mm/hr 0-15 H SEDW) C REACTIVE [id number] 06:16:00 Test Item Value Reference Range Interpretation Comments C REACTIVE PROTEIN (test code = 68.0 mg/L <10.0 H CRP) LACTIC ACID [id number] 06:14:00 Test Item Value Reference Range Interpretation Comments LACTIC ACID REPEAT (test code = 0.7 mmol/l 0.4-1.9 N LACTR) LACTIC [id number] 00:32:00 Test Item Value Reference Range Interpretation Comments LACTIC ACID (test code = LACT) 3.1 mmol/L 0.4-1.9 H - DOP ART INSPECTOR ASSEMBLIES AND INSTALLATIONS LEVEL [id number] 00:00:00 [facility] 1965 Sex: M Name: VIKA CHEN [facility] : 1965 Age/S: 56 / M [address] [place] [address] Blvd Unit #: [id number] Loc: [place] [address] Phys: Donald Dodson DPGideon Acct: [id number] Dis Date: Status: ADM IN PHONE #: [phone] Exam Date: 10/28/20215 FAX #: [phone] Reason: gangrene left foot EXAMS: CPT CODE: [id number] DOP ART INSPECTOR ASSEMBLIES AND INSTALLATIONS LEVEL MAMTA 89625 PROCEDURE INFORMATION: Exam: US Duplex Lower Extremity Arteries Exam date and time: 10/28/2021 12:51 PM Age: 56 years old Clinical indication: Other: Gangrene left foot TECHNIQUE: Imaging protocol: Real-time ultrasound scan of the arteries of the bilateral lower extremities with 2-D pérez scale, color Doppler flow and spectral waveform analysis. Images documented and saved. COMPARISON: DX XR FOOT 2 VIEWS LT 10/27/2021 11:36 PM Right lower extremity: The right ankle- brachial index is 1.01 which is normal. Multiphasic flow is seen in the right common femoral artery and within the proximal and mid right superficial femoral artery. Monophasic flow is seen in the distal right superficial femoral artery, right popliteal artery and right dorsalis pedis artery. Dampened monophasic flow in the right posterior tibial artery. Scattered atherosclerotic disease seen about the right lower extremity arteries. Left lower extremity: The left ankle-brachial index is 0.50 representing moderate arterial disease. Multiphasic flow is seen in the left common femoral artery. Monophasic flow is seen in the proximal left superficial femoral artery. Arterial flow is not seen in the mid left superficial femoral artery. Monophasic flow is seen in the distal left superficial femoral artery, left popliteal artery, left posteriortibial artery and left dorsalis pedis artery. Scattered atherosclerotic disease seen about the left lower extremity arteries. Impression: 1. The right ankle-brachial index is 1.01 which is normal. 2. Monophasic flow in the right lower extremity arteries beginning in the distal right superficial femoral artery suggesting arterial disease between the mid and distal right superficial femoral artery. 3. The left ankle-brachial index is 0.50 representing moderate arterial disease. 4. Occlusion of the mid left superficial femoral artery. at 1322 Reported and signed by: Sven Garner M.D. PAGE 1 Signed Report (CONTINUED) Name: VIKA CHEN [facility] : 1965 Age/S: 56 / M [address] [place], [place] [address]vd Unit #: [id number] Loc: [place] [address] Phys: Donald Dodson DPM Acct: [id number] Dis Date: Status: ADM IN PHONE #: [phone] Exam Date: 10/28/2021 1315 FAX #: [phone] Reason: gangrene left foot EXAMS: CPT CODE: [id number] DOP ART INSPECTOR ASSEMBLIES AND INSTALLATIONS LEVEL MAMTA [id number] <Continued> CC: Savanna Lira MD; Roselia Burton MD; Donald Dodson DPGideon Technologist: Sari Ontiveros RDMS(AB) Trnscb Date/Time: 10/28/2021 (1321) [email or web address] Orig Print D/T: S: 10/28/2021 (1321) Probe: PAGE 2 Signed Report- XR FOOT 2 VIEWS [id number] 00:00:00 [facility] : 1965 Sex: M FAX: Rich CarlinrealSavanna Meneess [phone] Morrison: St: REG FAX: Angelo Oro NP [phone] Name: VIKA CHEN Tong [facility] : 1965Age/S: 56/M [address] [place] [address] Unit #: [id number] Loc: [place] [address] Phys: Angelo Oro NP Acct: [id number] Dis Date: Status: REG ER PHONE #:[phone] Exam Date: 10/27/2021 2350 FAX #: [phone] Reason: L foot pain EXAMS: CPT CODE: [id number] XR FOOT [address] [place] [id number] PROCEDURE INFORMATION: Exam: XR Left Foot Exam date and time: 10/27/2021 11:36 PM Age: 56 years old Clinical indication: Pain; Foot and other: Eval wound; Left; Additional info: L foot pain TECHNIQUE: Imaging protocol: XR Left foot. Views: 1 or 2 views. AP and Lateral COMPARISON: No relevant prior studies available. FINDINGS: Bones/joints: Osteopenia significantly limits the exam. Distal fibular fusion wire noted. Pes planus. No gross fracture or focal bony destruction. Soft tissues: There are no radiopaque foreign bodies. There is no soft tissue gas or osseous erosive changes noted. IMPRESSION: 1. Osteopenia significantly limits the exam. No gross fracture or bony destruction. 2. Pes planus. 3. Fixation wire noted at the distal left fibula. at 0000 Reported and signed by: Jesus Castaneda M.D. CC: Savanna Lira MD; Angelo Oro NP Technologist: RT Kelly(R) Trnscrd Date/Time/By: 10/28/2021 (0000) : By: Sarah Orig Print D/T: S: 10/28/2021 (0000) PAGE 1 Signed ReportBASIC METABOLIC [id number] 23:22:00 Test Item Value Reference Range Interpretation Comments SODIUM (test code = NA) 133 mEq/L 134-147 L POTASSIUM (test code = 4.3 mEq/L 3.4-5.0 N K) CHLORIDE (test code = 101 mEq/L 100-108 N CL) CARBON DIOXIDE (test 28 mEq/l 21-33 N code = CO2) ANION GAP (test code = 9 0-20 N GAP) GLUCOSE (test code = 102 mg/dL 70-110 N GLU) BLOOD UREA NITROGEN 22 mg/dL 7-18 H (test code = BUN) GLOMERULAR FILTRATION 76.7 90-95 L Units of measure = RATE (test code = GFR) ml/mi n/1.73 m2 CREATININE (test code = 1.0 mg/dL 0.6-1.3 N CREAT) CALCIUM (test code = 9.2 mg/dL 8.0-10.5 N CA) CBC W/AUTO [id number] 23:11:00 Test Item Value Reference Range Interpretation Comments WHITE BLOOD CELL (test code = 13.6 x10 3/uL 4.5-11.0 H WBC) RED BLOOD CELL (test code = 4.08 x10 6/uL 4.00-5.60 N RBC) HEMOGLOBIN (test code = HGB) 12.6 g/dL 12.5-16.9 N HEMATOCRIT (test code = HCT) 39.5 % 37.5-50.7 N MEAN CELL VOLUME (test code = 96.8 fL 81.0-99.0 N MCV) MEAN CELL HGB (test code = MCH) 30.9 pg 27.0-33.0 N MEAN CELL HGB CONCETRATION 31.9 g/dL 33.0-37.0 L (test code = MCHC) RED CELL DISTRIBUTION WIDTH CV 13.3 % 11.5-14.5 N (test code = RDW) PLATELET COUNT (test code = 362 x10 3/uL 150-400 N PLT) NEUTROPHIL % (test code = NT%) 66.1 % 56.0-77.0 N LYMPHOCYTE % (test code = LY%) 23.1 % 14.0-32.0 N NEUTROPHIL # (test code = NT#) 9.00 x10 3/uL 2.0-7.6 H LYMPHOCYTE # (test code = LY#) 3.14 x10 3/uL 1.0-3.8 N MANUAL DIFF REQUIRED (test code NO = MDIFF) RED CELL DISTRIBUTION WIDTH SD 48.1 fL 37.0-54.0 N (test code = RDW-SD) MEAN PLATELET VOLUME (test code 8.7 fL 7.0-9.0 N = MPV) IMMATURE GRANULOCYTE % (test 0.7 % 0.0-2.0 N code = IG%) MONOCYTE % (test code = MO%) 9.1 % 4.8-9.0 H EOSINOPHIL % (test code = EO%) 0.7 % 0.3-3.7 N BASOPHIL % (test code = BA%) 0.3 % 0.0-2.0 N NUCLEATED RBC % (test code = 0.0 % 0-0 N NRBC%) IMMATURE GRANULOCYTE # (test 0.10 x10 3/uL 0.00-0.03 H code = IG#) MONOCYTE # (test code = MO#) 1.24 x10 3/uL 0.1-0.8 H EOSINOPHIL # (test code = EO#) 0.10 x10 3/uL 0.0-0.2 N BASOPHIL # (test code = BA#) 0.04 x10 3/uL 0.0-0.2 N NUCLEATED RBC # (test code = 0.00 x10 3/uL 0.0-0.1 N NRBC#) - XR CHEST 1 [id number] 00:00:00 [facility] : 1965 Sex: M FAX: Rich Janiya Liraloli Meneses [phone] Morrison: St: REG FAX: Angelo Oro NP [phone] Name: VIKA CHEN Tong [facility] : 1965Age/S: 56/M [address] [place] [address] Unit #: [id number] Loc: [place] [address] Phys: Angelo Oro NP Acct: [id number] Dis Date: Status: REG ER PHONE #:[phone] Exam Date: 10/27/2021 2348 FAX #: [phone] Reason: Cough EXAMS: CPT CODE: [id number] XR CHEST 1 V 66939 PROCEDURE INFORMATION: Exam: XR Chest Exam date and time: 10/27/2021 11:29 PM Age: 56years old Clinical indication: Cough TECHNIQUE: Imaging protocol: XR of the chest. Views: 1 view. COMPARISON: No relevant prior studies available. FINDINGS: Lungs: Clear. No consolidation. Pleural spaces: Unremarkable. No pleural effusion.No pneumothorax. Heart/Mediastinum: Contours within normal limits. Bones/joints: No acute osseous process. IMPRESSION: No radiographically identified acute cardiopulmonary findings. at 2946 Reported and signed by: Ewelina Potter M.D. CC: Savanna Lira MD; Angelo Oro NP Technologist: Cathy Snow RT(R) Trnscrd Date/Time/By: 10/27/2021 (3741) : By: ColletteRMarielosRR21 Orig Print D/T: S: 10/27/2021 (1630) PAGE 1 Signed [id number] 12:16:00 Test Item Value Reference Range Interpretation Comments AMMONIA (test code = AMM) 92 umol/L 11-32 H IDENTIFICATION ON IT V.LAB.JQ 06/21/20 1154GLUCOMETER GLUCOSE- LAB USE ONLY 2019-08-15 17:16:00 Test Item Value Reference Range Interpretation Comments GLUCOMETER (test code 116 mg/dL 70-100 H CLEANE D METERMeter ID: = GMG) [id number] tor: 39[address] [facility] GLUCOMETER GLUCOSE- LAB USE [id number] 07:52:00 Test Item Value Reference Range Interpretation Comments GLUCOMETER (test code = 89 mg/dL 70-100 NANCY DIDI METERMeter ID: GMG) [id number] tor: 6297 ROXANNE MACK [id number] 22:37:00 Test Item Value Reference Range Interpretation Comments FOLATE (test code = A75) 33.1 ng/mL 3.1-17.5 H THYROID PANEL/SCREEN (TSH)2019-08-10 22:32:00 Test Item Value Reference Range Interpretation Comments TSH (test code = A57) 1.480 uIU/mL 0.358-3.740 LIPID [id number] 22:17:00 Test Item Value Reference Range Interpretation Comments CHOLESTROL (test code = 44A) 183 mg/dL 140-200 TRIGLYCERI (test code = 42B) 139 mg/dL <=149 HDL (test code = 83D) 41.0 mg/dL 40.0-60.0 LDL (test code = 34B) 115 mg/dL <=99 H CHL/HDL (test code = CHR) 4.5 0.0-3.4 H [id number] 22:17:00 Test Item Value Reference Range Interpretation Comments PREALBUMIN (test code = 08E) 28 mg/dL 18-38 [id number] 21:57:00 Test Item Value Reference Range Interpretation Comments MAGNESIUM (test code = 48A) 2.2 mg/dL 1.8-2.4 COMPREHENSIVE METABOLIC [id number] 18:16:00 Test Item Value Reference Range Interpretation [...] (test code = 31A) 47 IU/L <=78 [id number] 18:16:00 Test Item Value Reference Range Interpretation Comments ACETAMINPH (test code = 94M) <2.0 ug/mL 10.0-30.0 L ALCOHOL BLOOD (ETOH)2019-08-10 18:15:00 Test Item Value Reference Range Interpretation Comments ETOH (test code = HALC) ETHANOL The result is to be used only for medical purposes ALCOHOL (test code = <10 mg/dL <=10 56A) PRO TIME AND [id number] 18:14:00 Test Item Value Reference Range Interpretation [...] LMW Heparin. Order Code is ANTI-XA CARDIAC [id number] 18:14:00 Test Item Value Reference Range Interpretation Comments TROPONIN I (test code = A84) <0.015 ng/mL 0.000-0.045 AMMONIA [id number] 18:10:00 Test Item Value Reference Range Interpretation Comments AMMONIA (test code = 54A) 21 umol/L 11-32 [id number] 18:10:00 Test Item Value Reference Range Interpretation Comments SALICYLATE (test code = 94B) 2.7 mg/dL 2.8-20.0 L XR CHEST 1 VIEW [id number] 18:05:16LOCATION: [id number]: 54-year-old male, psychiatric workup.COMMENT: A frontal chest [...] ng/mL Barbiturates 200 ng/mL Opiates 2000 ng/mL [id number] 17:59:00 Test Item Value Reference Range Interpretation [...] Comments WBC (test code = WBC) 7.0 10\\S\\3/uL 4.5-11.0 RBC (test code = RBC) 4.53 10\\S\\6/uL 4.20-5.60 HGB (test code = HBG) 14.1 g/dL 14.0-18.0 HCT (test code = HCT) 42.9 % 35.0-46.0 MCV (test code = MCV) 94.7 fL 80.0-94.0 H MCH (test code = MCH) 31.1 pg 27.0-31.0 H MCHC (test code = MCHC) 32.9 g/dL 32.0-36.0 RDW (test code = RDW) 13.2 % 11.5-14.5 PLT (test code = PLT) 153 10\\S\\3/uL 130-400 MPV (test code = MPV) 8.9 fL 9.4-12.4 L NEUTROP # (test code = NE#) 3.6 10\\S\\3/uL 2.0-8.0 LYMPH # (test code = LY#) 2.3 10\\S\\3/uL 1.2-4.0 MONOCYTE # (test code = MO#) 0.8 10\\S\\3/uL 0.0-1.1 EOSINOPH # (test code = EO#) 0.3 10\\S\\3/uL 0.0-0.7 BASOPHIL # (test code = BA#) 0.1 10\\S\\3/uL 0.0-0.3 IG # (test code = IG#) 0.01 10\\S\\3/uL 0.00-0.06 NRBC # (test code = NRBC#) 0.00 10\\S\\3/uL 0.00-0.01 NEUTROPH % (test code = NE%) [...]
[2021-11-30 13:10] LABS: Hematocrit 30.8 % (39.6-49.0); Lymphocytes % 8.1 % (15.3-44.8); MPV 6.9 fL (7.6-11.3); RBC Red Blood Cell Count 3.44 M/uL (4.33-5.43)
--- NOTE | 2021-11-30 13:14 | RAD REPORT ---
EXAM DESCRIPTION: [facility] Single View11/30/2021 1:07 pm CLINICAL HISTORY: Confusion COMPARISON: 2012 FINDINGS: The lungs appear clear of acute infiltrate. The heart is normal size IMPRESSION: No acute abnormalities displayed
--- NOTE | 2021-11-30 13:18 | RAD REPORT ---
EXAM DESCRIPTION: CT - Head Brain Wo Cont - 11/30/2021 1:09 pm CLINICAL HISTORY: Alteration of awareness/confusion COMPARISON: October 2021 TECHNIQUE: Computed axial tomography of the head was obtained. IV contrast was not requested. All CT scans are performed using dose optimization technique as appropriate and may include automated exposure control or mA/KV adjustment according to patient size. FINDINGS: An intracranial bleed is not seen . The ventricles are normal in caliber. No extra-axial fluid collection is noted. Right craniotomy Moderate cystic encephalomalacia right cerebrum. 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 Mild gliosis left frontal lobe. Fluid within the sinuses/ mastoids is not seen. IMPRESSION: No acute intracranial abnormality is seen. If patient's symptoms persist MRI of the bra in would be recommended.
[2021-11-30 13:30] LABS: ALT/SGPT 33 U/L (12-78); AST/SGOT 59 U/L (15-37); Albumin 2.2 g/dL (3.4-5.0); Alkaline Phosphatase 62 U/L (45-117); BUN Blood Urea Nitrogen 29 mg/dL (7-18); Bicarbonate 32 mmol/L (21-32); Bilirubin Total 0.2 mg/dL (0.2-1.0); Glucose Level 83 mg/dL (74-106); Potassium 4.4 mmol/L (3.5-5.1); Protein, Total 7.8 g/dL (6.4-8.2); Sodium Level 144 mmol/L (136-145)
[2021-11-30 13:31] LABS: Bilirubin Direct < 0.1 mg/dL (0-0.2)
[2021-11-30] MEDS ORDERED: NA CHLORIDE 0.9% 1,000 ML ONE (14:25)
[2021-11-30 15:19] LABS: Urine Blood 2+ (Negative); Urine Glucose Negative (Negative); Urine Protein 1+ (Negative)
[2021-11-30 15:43] LABS: Urine Bacteria 20-50 /HPF (NONE SEEN); Urine Mucus 1+ /HPF (NONE SEEN)
[2021-11-30 15:47] LABS: SARS-COV-2 RT PCR NEGATIVE (NEGATIVE)
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
[2021-11-30] MEDS ORDERED: CEFTRIAXONE 1000 MG/VIAL ONE (17:17)
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
[2021-11-30] MEDS ORDERED: ONDANSETRON 4 MG/2 ML VIAL IV PRN (21:05)
[2021-11-30] MEDS: NA CHLORIDE 0.9% 1,000 ML IV SCH (21:52)
[2021-12-01 03:49] VITALS: BMI 19.9
[2021-12-01 05:45] LABS: Absolute Lymphocytes (CBC) 1.1 K/uL (0.7-4.9); Hematocrit 29.7 % (39.6-49.0); Lymphocytes % 8.7 % (15.3-44.8); MPV 7.3 fL (7.6-11.3); RBC Red Blood Cell Count 3.33 M/uL (4.33-5.43)
[2021-12-01 06:08] LABS: Bilirubin Total 0.2 mg/dL (0.2-1.0); Ferritin 1733.7 ng/mL (26-388); Potassium 3.7 mmol/L (3.5-5.1); Protein, Total 7.5 g/dL (6.4-8.2)
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
[2021-12-01 06:21] LABS: Blood Morphology Comment NOT SEEN (NOT SEEN); Platelet Estimate INCR; White Blood Cell Scan OK (OK)
[2021-12-01] MEDS ORDERED: KCL 20 MEQ/100 mL IVPB 20 MEQ/100 ML BAG IV SCH (07:00)
[2021-12-01] MEDS ORDERED: CEFTRIAXONE 1,000 MG in NA CHLORIDE 0.9% 50 ML IVPB SCH ×2 (09:00→21:00)
[2021-12-01] MEDS: ENOXAPARIN 40 MG/0.4 ML SQ SCH (10:08)
[2021-12-01] MEDS: NA CHLORIDE 0.9% 1,000 ML IV SCH ×2 (10:08→17:05)
[2021-12-02] MEDS: NA CHLORIDE 0.9% 1,000 ML IV SCH ×3 (03:30→23:44)
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
[2021-12-02 06:34] LABS: Absolute Lymphocytes (CBC) 1.7 K/uL (0.7-4.9); Hematocrit 31.8 % (39.6-49.0); Lymphocytes % 14.4 % (15.3-44.8); MPV 7.3 fL (7.6-11.3); RBC Red Blood Cell Count 3.56 M/uL (4.33-5.43)
[2021-12-02 06:55] LABS: Albumin 1.9 g/dL (3.4-5.0); Bilirubin Total 0.2 mg/dL (0.2-1.0); Potassium 3.6 mmol/L (3.5-5.1); Protein, Total 6.9 g/dL (6.4-8.2)
--- NOTE | 2021-12-02 07:29 | EKG ---
Test Date: 2021-11-30 Test Time: 12:00:09 Courtroom Reporter: ROBBIE MEASUREMENT RESULTS: Intervals: Rate: 92 CT: 144 QRSD: 84 QT: 394 QTc: 487 [place]: P: 70 CT: 144 QRS: 51 T: 47 INTERPRETIVE STATEMENTS: Normal sinus rhythm Prolonged QT Abnormal ECG Compared to ECG 10/15/2018 00:42:49 Prolonged QT interval now present Short CT interval no longer present Electronically Signed On 12-02-21 07:23:06 CDT by Hugh De Oliveira
[2021-12-02] MEDS ORDERED: MORPHINE 2 MG/ML SYR IV ONE (08:03)
[2021-12-02] MEDS: Meropenem 1,000 MG in NA CHLORIDE 0.9% 100 ML IV SCH ×2 (09:06→17:57)
[2021-12-02] MEDS: ENOXAPARIN 40 MG/0.4 ML SQ SCH (09:07)
[2021-12-02] MEDS: MEDIHONEY 44 ML TOPICAL TUBE TOP SCH (10:00)
[2021-12-02] MEDS ORDERED: POTASSIUM 25 MEQ EFFERV TAB PO ONE (11:54)
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
--- NOTE | 2021-12-02 13:45 | RAD REPORT ---
EXAM DESCRIPTION: CT - Abdomen Pelvis W/Wo Contrast - 12/02/2021 1:26 pm CLINICAL HISTORY: Abdominal pain/UTI COMPARISON: 2018 TECHNIQUE: Computed axial tomography of the abdomen and pelvis was obtained. Unenhanced and enhanced images were taken. 100 cc Isovue 300 was administered intravenously. Images were obtained in arteria l, venous and delayed phases. Coronal reconstruction was performed. Oral contrast given All CT scans are performed using dose optimization technique as appropriate and may include automated exposure control or mA/KV adjustment according to patient size. FINDINGS: Genitourinary calculus is not seen. No hydronephrosis. A renal mass is not present. The liver, spleen, pancreas and adrenals appear unremarkable. There is no evidence of diverticulitis. Moderate amount of stool within the colon. A hysterectomy. No adnexal mass IMPRESSION: Moderate amount stool within the colon
[2021-12-02] MEDS: HYDROCODONE/APAP 5/325 MG TAB PO PRN (21:58)
[2021-12-03] MEDS: Meropenem 1,000 MG in NA CHLORIDE 0.9% 100 ML IV SCH ×3 (00:03→17:18)
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
[2021-12-03 06:18] LABS: Absolute Lymphocytes (CBC) 2.1 K/uL (0.7-4.9); Hematocrit 27.6 % (39.6-49.0); Lymphocytes % 19.1 % (15.3-44.8); RBC Red Blood Cell Count 3.08 M/uL (4.33-5.43)
[2021-12-03 06:31] LABS: BUN Blood Urea Nitrogen 18 mg/dL (7-18); Bicarbonate 29 mmol/L (21-32); Glucose Level 94 mg/dL (74-106); Potassium 3.3 mmol/L (3.5-5.1); Sodium Level 147 mmol/L (136-145)
[2021-12-03 07:35] LABS: Blood Morphology Comment NOT SEEN (NOT SEEN); Platelet Estimate ADEQ; White Blood Cell Scan OK (OK)
[2021-12-03] MEDS ORDERED: POTASSIUM CL SA 10 MEQ TAB PO ONE ×2 (08:00→09:17)
[2021-12-03] MEDS: ENOXAPARIN 40 MG/0.4 ML SQ SCH (08:31)
[2021-12-03] MEDS: NA CHLORIDE 0.9% 1,000 ML IV SCH (08:33)
[2021-12-03] MEDS: MEDIHONEY 44 ML TOPICAL TUBE TOP SCH (08:37)
[2021-12-03] MEDS ORDERED: POTASSIUM 25 MEQ EFFERV TAB PO ONE ×3 (09:20→23:00)
--- NOTE | 2021-12-03 11:57 | P.PN ---
Subjective Date of Service: 12/03/21 Chief Complaint: UTI, sepsis Patient seen and examined at bedside, doing well with no acute complains Review of Systems 10-point ROS is otherwise unremarkable Physical Examination - Vital Signs Temperature: 98.1 F Blood Pressure: 132/61 Pulse: 76 Respirations: 15 Pulse Ox (%): 95 - Studies Laboratory Last Values WBC 12.50 K/uL (4.3-10.9) H 11/30/21 13:01 RBC 3.44 M/uL (4.33-5.43) L 11/30/21 13:01 Hgb 9.7 g/dL (13.6-17.9) L 11/30/21 13:01 Hct 30.8 % (39.6-49.0) L 11/30/21 13:01 MCV 89.5 fL (80-100) D 11/30/21 13:01 MCH 28.1 pg (27.0-35.0) D 11/30/21 13:01 MCHC 31.4 g/dL (32.0-36.0) L 11/30/21 13:01 RDW 17.2 % (12.1-15.2) H 11/30/21 13:01 Plt Count 440 K/uL (152-406) H 11/30/21 13:01 MPV 6.9 fL (7.6-11.3) L 11/30/21 13:01 Neutrophils % 76.7 % (41.7-73.7) H 11/30/21 13:01 Lymphocytes % 8.1 % (15.3-44.8) L 11/30/21 13:01 Monocytes % 15.0 % (3.3-12.3) H 11/30/21 13:01 Eosinophils % 0.0 % (0-4.4) 11/30/21 13:01 Basophils % 0.2 % (0-1.3) 11/30/21 13:01 Absolute Neutrophils 9.6 K/uL (1.8-8.0) H 11/30/21 13:01 Absolute Lymphocytes 1.0 K/uL (0.7-4.9) 11/30/21 13:01 Absolute Monocytes 1.9 K/uL (0.1-1.3) H 11/30/21 13:01 Absolute Eosinophils 0.0 K/uL (0-0.5) 11/30/21 13:01 Absolute Basophils 0.0 K/uL (0-0.5) 11/30/21 13:01 Sodium 144 mmol/L (136-145) 11/30/21 13:01 Potassium 4.4 mmol/L (3.5-5.1) 11/30/21 13:01 Chloride 107 mmol/L (98-107) 11/30/21 13:01 Carbon Dioxide 32 mmol/L (21-32) 11/30/21 13:01 BUN 29 mg/dL (7-18) H 11/30/21 13:01 Creatinine 1.14 mg/dL (0.55-1.3) 11/30/21 13:01 Estimated GFR 66 mL/min (=/>90) L 11/30/21 13:01 Glucose 83 mg/dL (74-106) 11/30/21 13:01 Calcium 9.3 mg/dL (8.5-10.1) 11/30/21 13:01 Total Bilirubin 0.2 mg/dL (0.2-1.0) 11/30/21 13:01 Direct Bilirubin < 0.1 mg/dL (0-0.2) 11/30/21 13:01 AST 59 U/L (15-37) H 11/30/21 13:01 ALT 33 U/L (12-78) 11/30/21 13:01 Alkaline Phosphatase 62 U/L (45-117) 11/30/21 13:01 Troponin I High Sens 14.50 pg/mL (<58.9) 11/30/21 13:01 Serum Total Protein 7.8 g/dL (6.4-8.2) 11/30/21 13:01 Albumin 2.2 g/dL (3.4-5.0) L 11/30/21 13:01 Globulin 5.6 g/dL (2.3-3.5) H 11/30/21 13:01 Albumin/Globulin Ratio 0.4 (1.1-1.8) L 11/30/21 13:01 Urine pH 6.0 (5.0-7.0) 11/30/21 15:16 Ur Specific [place] 1.010 (1.005-1.030) 11/30/21 15:16 Glucose (UA)(Auto) Negative (Negative) 11/30/21 15:16 Urine Ketones Negative (Negative) 11/30/21 15:16 Urine Blood 2+ (Negative) H 11/30/21 15:16 Urine Nitrite Positive (Negative) H 11/30/21 15:16 Ur Leukocyte Esterase 1+ (Negative) H 11/30/21 15:16 Urine RBC 5-10 /HPF (NONE SEEN) H 11/30/21 15:15 Urine WBC >50 /HPF (<5) H 11/30/21 15:15 Ur Squamous Epith Cells <5 /HPF (NONE SEEN) 11/30/21 15:15 Urine Bacteria 20-50 /HPF (NONE SEEN) H 11/30/21 15:15 Urine Mucus 1+ /HPF (NONE SEEN) 11/30/21 15:15 Urine Culture Reflexed Reflexed 11/30/21 15:15 Urine Total Protein 1+ (Negative) H 11/30/21 15:16 Influenza Type A RNA Negative (NEGATIVE) 11/30/21 13:01 Influenza Type B RNA Negative (NEGATIVE) 11/30/21 13:01 SARS-CoV-2 RNA (RT-PCR) Negative (NEGATIVE) 11/30/21 13:01 Microbiology Data (last 24 hrs): 11/30/21 16:16 Blood - Blood Aerobic Blood Culture - Final Escherichia Coli Esbl 11/30/21 16:16 Blood - Blood Blood Culture Gram Stain - Final 11/30/21 16:16 Blood - Blood Anaerobic Blood Culture - Final 11/30/21 15:15 Clean Catch Urine [place] Count - Final >100,000 CFU/ML. 11/30/21 15:15 Clean Catch Urine - Final Escherichia Coli Esbl Assessment And Plan - Plan Physical exam: General: In no apparent distress, Cachectic HEENT: Atraumatic, Normocephalic Neck: Supple, 2+ carotid pulse no bruit Respiratory: Normal air movement Cardiovascular: No edema, Normal pulses, Regular rate/rhythm Gastrointestinal: Normal bowel sounds, Non-distended Musculoskeletal: Contractures (Left upper extremity), Other (Left twbob-bxb-[id number] amputation with wilner/sutures in place) Conclusions/Impression: Antibiotics: Meropenem: 12/02current Urosepsis -Blood and urine cultures growing ESBL E. coli Continue meropenem for total of [address] abdomen pelvis negative for any acute findings Left [id number]-[id number]-[id number] amputation Suture/wilner in place. Continue to monitor closely. Patient will need sutures/wilner removed 4 to 6 weeks after surgery date Left buttocks wound Continue wound care per wound care team Medical management per primary team Plan of care discussed with Dr. Gutierrez Thank you for consultation
[2021-12-03] MEDS: MELATONIN 5 MG TABLET PO PRN (23:09)
[2021-12-04] MEDS: Meropenem 1,000 MG in NA CHLORIDE 0.9% 100 ML IV SCH ×3 (00:47→16:42)
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
[2021-12-04 06:42] LABS: Hematocrit 29.3 % (39.6-49.0); MPV 7.1 fL (7.6-11.3); RBC Red Blood Cell Count 3.34 M/uL (4.33-5.43)
[2021-12-04 06:54] LABS: BUN Blood Urea Nitrogen 12 mg/dL (7-18); Bicarbonate 30 mmol/L (21-32); Glucose Level 86 mg/dL (74-106); Potassium 4.2 mmol/L (3.5-5.1); Sodium Level 141 mmol/L (136-145)
[2021-12-04] MEDS: MEDIHONEY 44 ML TOPICAL TUBE TOP SCH (08:54)
[2021-12-04] MEDS: ENOXAPARIN 40 MG/0.4 ML SQ SCH (08:54)
[2021-12-04] MEDS: HYDROCODONE/APAP 5/325 MG TAB PO PRN (17:03)
--- NOTE | 2021-12-04 23:33 | P.PN ---
Date of Service: 12/04/21 Inserted 18G 10cm Midline catheter to RUE via dynamic US guidance. Successful first attempt, dark-nonpulsatile blood retuned, fluses easily, catheter visualized within lumen of vein on US.
[2021-12-05] MEDS: Meropenem 1,000 MG in NA CHLORIDE 0.9% 100 ML IV SCH ×3 (01:00→17:16)
[2021-12-05] MEDS ORDERED: TRAMADOL HCL 50 MG TAB PO PRN (06:10)
[2021-12-05 06:51] LABS: Absolute Lymphocytes (CBC) 2.3 K/uL (0.7-4.9); Hematocrit 31.6 % (39.6-49.0); Lymphocytes % 19.1 % (15.3-44.8); MPV 7.1 fL (7.6-11.3); RBC Red Blood Cell Count 3.61 M/uL (4.33-5.43)
[2021-12-05] MEDS: ENOXAPARIN 40 MG/0.4 ML SQ SCH (09:54)
[2021-12-05] MEDS: MEDIHONEY 44 ML TOPICAL TUBE TOP SCH (09:54)
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
[2021-12-05] MEDS: MELATONIN 5 MG TABLET PO PRN (21:37)
[2021-12-06] MEDS: Meropenem 1,000 MG in NA CHLORIDE 0.9% 100 ML IV SCH ×3 (01:54→17:18)
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
[2021-12-06] MEDS: ENOXAPARIN 40 MG/0.4 ML SQ SCH (08:10)
[2021-12-06] MEDS: MEDIHONEY 44 ML TOPICAL TUBE TOP SCH (08:11)
[2021-12-06] MEDS ORDERED: PNEUMOCOCCAL VACCINE 0.5 ML IMVAC ONE (09:00)
[2021-12-06] MEDS ORDERED: Meropenem 1000 MG/VIAL IV ONE (10:54)
[2021-12-06] MEDS ORDERED: NA CHLORIDE 0.9% 100 ML ONE (10:55)
[2021-12-07] MEDS: Meropenem 1,000 MG in NA CHLORIDE 0.9% 100 ML IV SCH ×2 (01:00→09:00)
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
[2021-12-07 08:07] LABS: Hematocrit 31.6 % (39.6-49.0); MPV 7.4 fL (7.6-11.3); RBC Red Blood Cell Count 3.71 M/uL (4.33-5.43)
[2021-12-07] MEDS ORDERED: NA CHLORIDE 0.9% 100 ML ONE (08:22)
[2021-12-07] MEDS ORDERED: Meropenem 1000 MG/VIAL IV ONE (08:33)
[2021-12-07] MEDS: MEDIHONEY 44 ML TOPICAL TUBE TOP SCH (09:00)
[2021-12-07] MEDS: CITALOPRAM 10 MG TABLET PO SCH (09:40)
[2021-12-07] MEDS: ENOXAPARIN 40 MG/0.4 ML SQ SCH (09:40)
--- NOTE | 2021-12-07 15:17 | RAD REPORT ---
EXAM DESCRIPTION: RAD - Chest Single View - 12/07/2021 3:02 pm CLINICAL HISTORY: leukocytosis Chest pain. COMPARISON: Chest Single View dated 11/30/2021; Chest Single View dated 10/15/2018; Chest Single View dated 12/13/2017; Chest Single View dated 09/05/2016 FINDINGS: Portable technique limits examination quality. The lungs are mildly emphysematous but grossly clear. The heart is normal in size. No displaced fract ures. IMPRESSION: Mild COPD.
[2021-12-07] MEDS ORDERED: MEROPENEM IV SCH (17:00)
[2021-12-07] MEDS ORDERED: NA CHLORIDE 0.9% IV SCH (17:00)
--- NOTE | 2021-12-07 17:28 | P.PN ---
Subjective Date of Service: 12/07/21 Chief Complaint: UTI, sepsis Patient seen and examined at bedside, WBC uptrending. Repeat blood cultures and chest x-ray pending. Merum dose increased. Review of Systems 10-point ROS is otherwise unremarkable Physical Examination - Vital Signs Temperature: 97.3 F Blood Pressure: 113/71 Pulse: 98 Respirations: 14 Pulse Ox (%): 90 - Studies Laboratory Last Values WBC 12.50 K/uL (4.3-10.9) H 11/30/21 13:01 RBC 3.44 M/uL (4.33-5.43) L 11/30/21 13:01 Hgb 9.7 g/dL (13.6-17.9) L 11/30/21 13:01 Hct 30.8 % (39.6-49.0) L 11/30/21 13:01 MCV 89.5 fL (80-100) D 11/30/21 13:01 MCH 28.1 pg (27.0-35.0) D 11/30/21 13:01 MCHC 31.4 g/dL (32.0-36.0) L 11/30/21 13:01 RDW 17.2 % (12.1-15.2) H 11/30/21 13:01 Plt Count 440 K/uL (152-406) H 11/30/21 13:01 MPV 6.9 fL (7.6-11.3) L 11/30/21 13:01 Neutrophils % 76.7 % (41.7-73.7) H 11/30/21 13:01 Lymphocytes % 8.1 % (15.3-44.8) L 11/30/21 13:01 Monocytes % 15.0 % (3.3-12.3) H 11/30/21 13:01 Eosinophils % 0.0 % (0-4.4) 11/30/21 13:01 Basophils % 0.2 % (0-1.3) 11/30/21 13:01 Absolute Neutrophils 9.6 K/uL (1.8-8.0) H 11/30/21 13:01 Absolute Lymphocytes 1.0 K/uL (0.7-4.9) 11/30/21 13:01 Absolute Monocytes 1.9 K/uL (0.1-1.3) H 11/30/21 13:01 Absolute Eosinophils 0.0 K/uL (0-0.5) 11/30/21 13:01 Absolute Basophils 0.0 K/uL (0-0.5) 11/30/21 13:01 Sodium 144 mmol/L (136-145) 11/30/21 13:01 Potassium 4.4 mmol/L (3.5-5.1) 11/30/21 13:01 Chloride 107 mmol/L (98-107) 11/30/21 13:01 Carbon Dioxide 32 mmol/L (21-32) 11/30/21 13:01 BUN 29 mg/dL (7-18) H 11/30/21 13:01 Creatinine 1.14 mg/dL (0.55-1.3) 11/30/21 13:01 Estimated GFR 66 mL/min (=/>90) L 11/30/21 13:01 Glucose 83 mg/dL (74-106) 11/30/21 13:01 Calcium 9.3 mg/dL (8.5-10.1) 11/30/21 13:01 Total Bilirubin 0.2 mg/dL (0.2-1.0) 11/30/21 13:01 Direct Bilirubin < 0.1 mg/dL (0-0.2) 11/30/21 13:01 AST 59 U/L (15-37) H 11/30/21 13:01 ALT 33 U/L (12-78) 11/30/21 13:01 Alkaline Phosphatase 62 U/L (45-117) 11/30/21 13:01 Troponin I High Sens 14.50 pg/mL (<58.9) 11/30/21 13:01 Serum Total Protein 7.8 g/dL (6.4-8.2) 11/30/21 13:01 Albumin 2.2 g/dL (3.4-5.0) L 11/30/21 13:01 Globulin 5.6 g/dL (2.3-3.5) H 11/30/21 13:01 Albumin/Globulin Ratio 0.4 (1.1-1.8) L 11/30/21 13:01 Urine pH 6.0 (5.0-7.0) 11/30/21 15:16 Ur Specific [place] 1.010 (1.005-1.030) 11/30/21 15:16 Glucose (UA)(Auto) Negative (Negative) 11/30/21 15:16 Urine Ketones Negative (Negative) 11/30/21 15:16 Urine Blood 2+ (Negative) H 11/30/21 15:16 Urine Nitrite Positive (Negative) H 11/30/21 15:16 Ur Leukocyte Esterase 1+ (Negative) H 11/30/21 15:16 Urine RBC 5-10 /HPF (NONE SEEN) H 11/30/21 15:15 Urine WBC >50 /HPF (<5) H 11/30/21 15:15 Ur Squamous Epith Cells <5 /HPF (NONE SEEN) 11/30/21 15:15 Urine Bacteria 20-50 /HPF (NONE SEEN) H 11/30/21 15:15 Urine Mucus 1+ /HPF (NONE SEEN) 11/30/21 15:15 Urine Culture Reflexed Reflexed 11/30/21 15:15 Urine Total Protein 1+ (Negative) H 11/30/21 15:16 Influenza Type A RNA Negative (NEGATIVE) 11/30/21 13:01 Influenza Type B RNA Negative (NEGATIVE) 11/30/21 13:01 SARS-CoV-2 RNA (RT-PCR) Negative (NEGATIVE) 11/30/21 13:01 Assessment And Plan - Plan Physical exam: General: In no apparent distress, Cachectic HEENT: Atraumatic, Normocephalic Neck: Supple, 2+ carotid pulse no bruit Respiratory: Normal air movement Cardiovascular: No edema, Normal pulses, Regular rate/rhythm Gastrointestinal: Normal bowel sounds, Non-distended Musculoskeletal: Contractures (Left upper extremity), Other (Left gjska-qof-[id number] amputation with wilner/sutures in place) Conclusions/Impression: Antibiotics: Meropenem: 12/02current Urosepsis -Increase in WBC noted on most recent labs. Repeat blood cultures x2 and chest x-ray pending. Meropenem dose increased from 1 g q. 8 hours to 2 g every 8 hours. May need to extend meropenem dose up to 14 days. -Blood and urine cultures growing ESBL E. coli CT abdomen pelvis negative for any acute findings Left [id number] amputation Suture/wilner in place. Continue to monitor closely. Patient will need sutures/wilner removed 4 to 6 weeks after surgery date Left buttocks wound Continue wound care per wound care team Medical management per primary team Plan of care discussed with Dr. Gutierrez Thank you for consultation
[2021-12-07] MEDS: ENSURE ENLIVE 237 ML CAN PO SCH (21:14)
[2021-12-07] MEDS: JUVEN PACKET PO SCH (21:15)
[2021-12-07 23:47] VITALS: O2SAT 90
[2021-12-08] MEDS ORDERED: Meropenem 1000 MG/VIAL IV ONE (00:52)
[2021-12-08] MEDS: NA CHLORIDE 0.9% IV SCH ×3 (00:55→17:30)
[2021-12-08] MEDS: MEROPENEM IV SCH ×3 (00:55→17:30)
[2021-12-08 05:23] LABS: Absolute Lymphocytes (CBC) 2.5 K/uL (0.7-4.9); Hematocrit 33.4 % (39.6-49.0); Lymphocytes % 22.6 % (15.3-44.8); MPV 7.6 fL (7.6-11.3); RBC Red Blood Cell Count 3.84 M/uL (4.33-5.43)
[2021-12-08] MEDS ORDERED: NA CHLORIDE 0.9% 0 ML ONE (08:04)
[2021-12-08] MEDS: JUVEN PACKET PO SCH (09:00)
[2021-12-08] MEDS: ENSURE ENLIVE 237 ML CAN PO SCH (09:00)
[2021-12-08] MEDS: MEDIHONEY 44 ML TOPICAL TUBE TOP SCH (09:15)
[2021-12-08] MEDS: CITALOPRAM 10 MG TABLET PO SCH (09:15)
[2021-12-08] MEDS: ENOXAPARIN 40 MG/0.4 ML SQ SCH (09:15)
--- NOTE | 2021-12-08 11:42 | P.PN ---
Subjective Date of Service: 12/08/21 Chief Complaint: UTI, sepsis Patient seen and examined at bedside, WBC downtrending. Review of Systems 10-point ROS is otherwise unremarkable Physical Examination - Vital Signs Temperature: 96.9 F Blood Pressure: 124/71 Pulse: 95 Respirations: 12 Pulse Ox (%): 90 - Studies Laboratory Last Values WBC 12.50 K/uL (4.3-10.9) H 11/30/21 13:01 RBC 3.44 M/uL (4.33-5.43) L 11/30/21 13:01 Hgb 9.7 g/dL (13.6-17.9) L 11/30/21 13:01 Hct 30.8 % (39.6-49.0) L 11/30/21 13:01 MCV 89.5 fL (80-100) D 11/30/21 13:01 MCH 28.1 pg (27.0-35.0) D 11/30/21 13:01 MCHC 31.4 g/dL (32.0-36.0) L 11/30/21 13:01 RDW 17.2 % (12.1-15.2) H 11/30/21 13:01 Plt Count 440 K/uL (152-406) H 11/30/21 13:01 MPV 6.9 fL (7.6-11.3) L 11/30/21 13:01 Neutrophils % 76.7 % (41.7-73.7) H 11/30/21 13:01 Lymphocytes % 8.1 % (15.3-44.8) L 11/30/21 13:01 Monocytes % 15.0 % (3.3-12.3) H 11/30/21 13:01 Eosinophils % 0.0 % (0-4.4) 11/30/21 13:01 Basophils % 0.2 % (0-1.3) 11/30/21 13:01 Absolute Neutrophils 9.6 K/uL (1.8-8.0) H 11/30/21 13:01 Absolute Lymphocytes 1.0 K/uL (0.7-4.9) 11/30/21 13:01 Absolute Monocytes 1.9 K/uL (0.1-1.3) H 11/30/21 13:01 Absolute Eosinophils 0.0 K/uL (0-0.5) 11/30/21 13:01 Absolute Basophils 0.0 K/uL (0-0.5) 11/30/21 13:01 Sodium 144 mmol/L (136-145) 11/30/21 13:01 Potassium 4.4 mmol/L (3.5-5.1) 11/30/21 13:01 Chloride 107 mmol/L (98-107) 11/30/21 13:01 Carbon Dioxide 32 mmol/L (21-32) 11/30/21 13:01 BUN 29 mg/dL (7-18) H 11/30/21 13:01 Creatinine 1.14 mg/dL (0.55-1.3) 11/30/21 13:01 Estimated GFR 66 mL/min (=/>90) L 11/30/21 13:01 Glucose 83 mg/dL (74-106) 11/30/21 13:01 Calcium 9.3 mg/dL (8.5-10.1) 11/30/21 13:01 Total Bilirubin 0.2 mg/dL (0.2-1.0) 11/30/21 13:01 Direct Bilirubin < 0.1 mg/dL (0-0.2) 11/30/21 13:01 AST 59 U/L (15-37) H 11/30/21 13:01 ALT 33 U/L (12-78) 11/30/21 13:01 Alkaline Phosphatase 62 U/L (45-117) 11/30/21 13:01 Troponin I High Sens 14.50 pg/mL (<58.9) 11/30/21 13:01 Serum Total Protein 7.8 g/dL (6.4-8.2) 11/30/21 13:01 Albumin 2.2 g/dL (3.4-5.0) L 11/30/21 13:01 Globulin 5.6 g/dL (2.3-3.5) H 11/30/21 13:01 Albumin/Globulin Ratio 0.4 (1.1-1.8) L 11/30/21 13:01 Urine pH 6.0 (5.0-7.0) 11/30/21 15:16 Ur Specific [place] 1.010 (1.005-1.030) 11/30/21 15:16 Glucose (UA)(Auto) Negative (Negative) 11/30/21 15:16 Urine Ketones Negative (Negative) 11/30/21 15:16 Urine Blood 2+ (Negative) H 11/30/21 15:16 Urine Nitrite Positive (Negative) H 11/30/21 15:16 Ur Leukocyte Esterase 1+ (Negative) H 11/30/21 15:16 Urine RBC 5-10 /HPF (NONE SEEN) H 11/30/21 15:15 Urine WBC >50 /HPF (<5) H 11/30/21 15:15 Ur Squamous Epith Cells <5 /HPF (NONE SEEN) 11/30/21 15:15 Urine Bacteria 20-50 /HPF (NONE SEEN) H 11/30/21 15:15 Urine Mucus 1+ /HPF (NONE SEEN) 11/30/21 15:15 Urine Culture Reflexed Reflexed 11/30/21 15:15 Urine Total Protein 1+ (Negative) H 11/30/21 15:16 Influenza Type A RNA Negative (NEGATIVE) 11/30/21 13:01 Influenza Type B RNA Negative (NEGATIVE) 11/30/21 13:01 SARS-CoV-2 RNA (RT-PCR) Negative (NEGATIVE) 11/30/21 13:01 Assessment And Plan - Plan Physical exam: General: In no apparent distress, Cachectic HEENT: Atraumatic, Normocephalic Neck: Supple, 2+ carotid pulse no bruit Respiratory: Normal air movement Cardiovascular: No edema, Normal pulses, Regular rate/rhythm Gastrointestinal: Normal bowel sounds, Non-distended Musculoskeletal: Contractures (Left upper extremity), Other (Left fhwbi-jxz-[id number] amputation with wilner/sutures in place) Conclusions/Impression: Antibiotics: Meropenem: 12/02current Urosepsis -WBC now downtrending. Chest x-ray showed mild COPD, repeat blood cultures obtained on 12/07 are pending. Merum dose increased from 1 g q. 8 hours to 2 g every 8 hours. May need to extend meropenem dose up to 14 days. -Blood and urine cultures growing ESBL E. coli CT abdomen pelvis negative for any acute findings Left gyzps-uzc-[id number] amputation Suture/wilner in place. Continue to monitor closely. Patient will need sutures/wilner removed 4 to 6 weeks after surgery date Left buttocks wound Continue wound care per wound care team Medical management per primary team Plan of care discussed with Dr. Gutierrez Thank you for consultation
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
[2021-12-08 16:06] VITALS: BP 120/78; TEMP 97.1
== END 2021-12-08 19:01 | DRG 871 ==
LOC: ER 12:25 → ERHOLD 18:03 → 2ND 20:34
PROVIDERS: ADMIT Hospitalist; ATTEND Hospitalist
DX: A41.51 Sepsis due to Escherichia coli [E. coli] (principal); G93.41 Metabolic encephalopathy; N39.0 Urinary tract infection, site not specified; Z16.12 Extended spectrum beta lactamase (ESBL) resistance; G81.94 Hemiplegia, unspecified affecting left nondominant side; R64 Cachexia; Z68.1 Body mass index [BMI] 19.9 or less, adult; R65.20 Severe sepsis without septic shock; B96.20 Unspecified Escherichia coli [E. coli] as the cause of diseases classified elsewhere; L89.320 Pressure ulcer of left buttock, unstageable; L89.220 Pressure ulcer of left hip, unstageable; Z87.828 Personal history of other (healed) physical injury and trauma; M62.422 Contracture of muscle, left upper arm; Z86.73 Personal history of transient ischemic attack (TIA), and cerebral infarction without residual deficits; I10 Essential (primary) hypertension; D50.9 Iron deficiency anemia, unspecified; Z89.612 Acquired absence of left leg above knee; Z20.822 Contact with and (suspected) exposure to COVID-19
CPT/HCPCS: 0240U; 36415; 70450; 71045; 74178; 80048; 80053; 80076; 81003; 81015; 82728; 83540; 83735; 84132; 84466; 84484; 85025; 85027; 87040; 87077; 87086; 87088; 87186; 87205; 93005; 96361; 96365; 96366; 97110; 97112; 97161; 97530; 99251; 99285; J1650; J2185; J2270; J2405; J3480; J7030; Q9967

== ENCOUNTER 2022-07-16 13:53 | Emergency (ER) | payer OTHER ==
--- OUTSIDE RECORDS SUMMARY | 2022-07-16 13:59 | XMS REPORT | Continuity of Care Document ---
:1965 Author Organization [facility] t Address [address] [place]. [address] [place] [address] Care Team Providers Name Role Phone Laura Arteaga Attending Clinician Unavailable DANNA_BAHC_Todd_Betsy Attending Clinician Unavailable Katia Pearson Attending Clinician [phone] Mathew Eason Attending Clinician [phone] December Attending Clinician [phone] GC_BAHC_Jenaro_Christina Attending Clinician Unavailable Roselia Burton Attending Clinician Unavailable KNOW, DOES_NOT Attending Clinician Unavailable DR AMBROSIO GARNER Attending Clinician Unavailable DANNA_BAHC_Todd_Betsy Admitting Clinician Unavailable GC_BAHC_Spangler_G Admitting Clinician Unavailable Roselia Burton Admitting Clinician Unavailable KNOW, DOES_NOT Admitting Clinician Unavailable DR AMBROSIO GARNER Admitting Clinician Unavailable Payers Payer Name Policy Type Policy Number Effective Date Expiration Date S [facility] [place]ICARE [place]: [id number] 1997 FPW Enteprises 00:00:00 [facility] [id number] 2021 [employer] [place] 00:00:00 (MEDICAID HMO) Problems Condition Condition Condition Status Onset Resolution Last Treating Co mments Source Name Details Category Date Date Treatment Clinician Date Lives in a Lives in a Problem Active 2021-09 [facility] nursing Nursing 0-26 Medical home Home 00:00: 00 Need for Need for Problem Active 2021-09 [facility] personal Personal 0-26 Medica l care Care 00:00: assistance Assistance 00 Candidal Candidal Problem Active [facility] intertrigo Intertrigo 9-18 Me dical 00:00: 00 Osteoarthr Osteoarthr Problem Active [facility] itis itis 9-18 Medical 00:00: 00 Abnormal Abnormal Problem Active [facility] weight Weight 9-18 Medical gain Gain 00:00: 00 Raised Raised Problem Active [facility] thyroid Thyroid 9-18 Medical stimulatin Stimulatin 00:00: g hormone g Hormone 00 level Level 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 00 Hypercoagu Hypercoagu Problem Active [facility] lability lability 7-10 Medica l state State 00:00: 00 Chronic Chronic Problem Active [facility] obstructiv Obstructiv 7-10 Me dical e lung e Lung 00:00: disease Disease 00 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 00:00: 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 Chronic Chronic Problem Active [facility] pain Pain 5-11 Medical 00:00: 00 Left Left Problem Active [facility] hemiparesi Hemiparesi 5-11 Me dical s s 00:00: 00 Left Left Problem Active [facility] hemiplegia Hemiplegia 5-11 Me dical 00:00: 00 Peripheral Peripheral Problem Active [facility] vascular Vascular 5-11 Medica l disease Disease 00:00: 00 Neuropathi Neuropathi Problem Active [facility] c pain c Pain 5-11 Medical 00:00: 00 Unintentio Unintentio Problem Active [facility] nal weight nal Weight 5-11 Me dical loss Loss 00:00: 00 Adult Adult Problem Active [facility] failure to Failure to 5-11 Me dical thrive Thrive 00:00: syndrome Syndrome 00 Opioid Opioid Problem Active [facility] dependence Dependence 5-11 Me dical with with 00:00: current Current 00 use Use Vitamin Vitamin Problem Active [facility] deficiency Deficiency 4-14 Me dical 00:00: 00 Hyperlipid Hyperlipid Problem Active [facility] emia emia 4-14 Medical 00:00: 00 Senile Senile Problem Active [facility] purpura Purpura 4-14 Medical 00:00: 00 Schizoaffe Schizoaffe Problem Active [facility] ctive ctive 4-14 Medical disorder Disorder 00:00: 00 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 Anxiety Anxiety Problem Active [facility] 4-14 Medical 00:00: 00 Insomnia Insomnia Problem Active [facility] a 4-14 Medical 00:00: 00 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-14 Medical syndrome Syndrome 00:00: with pain with Pain 00 Hypertensi Hypertensi Problem Active [facility] ve heart ve Heart 4-14 Medica l disease Disease 00:00: 00 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 00:00: of [facility] Chronic Chronic Problem Active [facility] respirator Respirator 4-14 Me dical y failure y Failure 00:00: 00 Contractur Contractur Problem Active [facility] e of joint e of Joint 4-14 Me dical 00:00: 00 Low back Low Back Problem Active [facility] a pain Pain 4-14 Medical 00:00: 00 Functional Functional Problem Active [facility] quadripleg Quadripleg 4-14 Me dical ia ia 00:00: 00 History of History of Problem Active [facility] 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 Medi john brain Brain 00:00: injury Injury 00 Amputated Amputated Problem Active [facility] via above knee above Knee 4-14 Me dical 00:00: 00 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 4-14 Me dical ion ion 00:00: disorder Disorder 00 Tobacco Tobacco Problem Active [facility] dependence Dependence 4-14 Me dical with with 00:00: current Current 00 use Use Mixed Mixed Diagnosis Active Common hyperlipid hyperlipid Sp brigid emia emia [facility] Benign Benign Problem Active Common essential essential Spir it HTN HTN [facility] Cerumen Cerumen Problem Active Common impaction impaction Spir it - [facility] Anxiety Anxiety Problem Active Common [facility] Unspecifie Unspecifie Problem Active C ommon d d Spirit osteoarthr osteoarthr - [facility] itis, itis, St unspecifie unspecifie Padmini kes d site d [facility] Depression Depression Diagnosis Active Common with with [facility] anxiety anxiety [facility] Hemiparesi Hemiparesi Problem Active C ommon s s [facility] Pressure Pressure Problem Active Commo n ulcer of ulcer of [facility] unspecifie unspecifie [facility] d heel, d heel, St stage [address] 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, syndrome, Spir it left, left, - [facility] acquired acquired [facility] Weakness Weakness Problem Active Commo n of left of left [facility] lower lower - [facility] extremity extremity [facility] Tinnitus, Tinnitus, Problem Active Com mon right right [facility] Primary Primary Problem Active Common insomnia insomnia [facility] Allergies, Adverse Reactions, Alerts Allergy Allergy Status Severity Reaction(s) Onset Inactive Treating Comm ents Source Name Type Date Date Clinician No Known DA Active [facility] Allergie 10-27 Clear s 00:00: Landry [facility] No Known DA Active [facility] Drug 10-17 Clear Intolera 00:00: Landry nces 00 [facility] No Known DA Active [facility] [place] Social History Smoking Status Start Date Stop Date Source Heavy Tobacco Smoker [facility] Medi john Medications Ordered Filled Start Stop Current Ordering Indication Dosage Frequency Signature Comments Components Source Medication Medication Date Date Medication? Clinician (SIG) Name Name acetaminoph acetaminoph No 1 Q8H acetaminop [facility] en 300 en 300 hen 300 Medical mg-codeine mg-codeine mg-codeine 60 mg 60 mg 60 mg tablet Take tablet Take tablet 1 tablet 1 tablet Take 1 every 8 every 8 tablet hours by hours by every 8 oral route oral route hours by for 30 for 30 oral route days. days. for 30 days. albuterol albuterol No 3mL Q6H albuterol [facility] sulfate 2.5 sulfate 2.5 sulfate Medical mg/3 mL mg/3 mL 2.5 mg/3 (0.083 %) (0.083 %) mL (0.083 solution solution %) for for solution nebulizatio nebulizatio for n Inhale 3 n Inhale 3 nebulizati mL every 6 mL every 6 on Inhale hours by hours by 3 mL every nebulizatio nebulizatio 6 hours by n route as n route as nebulizati needed. needed. on route as needed. aspirin 81 aspirin 81 No 1 Q1D aspirin 81 [facility] mg mg mg Medical tablet,jeane tablet,jeane tablet,del yed release yed release ayed Take 1 Take 1 release tablet tablet Take 1 every day every day tablet by oral by oral every day route. route. by oral route. atorvastati atorvastati No atorvastat [facility] n 10 mg n 10 mg in 10 mg Medic al tablet Take tablet Take tablet 1 tablet 1 tablet Take 1 every day every day tablet by oral by oral every day route. route. by oral route. bisacodyl bisacodyl No bisacodyl [facility] 10 mg 10 mg 10 mg Medical rectal rectal rectal suppository suppository suppositor Insert by Insert by y Insert rectal rectal by rectal route. route. route. buspirone buspirone No 1 TID buspirone [facility] 15 mg 15 mg 15 mg Medical tablet Take tablet Take tablet 1 tablet 3 1 tablet 3 Take 1 times a day times a day tablet 3 by oral by oral times a route. route. day by oral route. colchicine colchicine No colchicine [facility] 0.6 mg 0.6 mg 0.6 mg Medical tablet tablet tablet Complete Complete No 1 Q1D Complete [facility] via Multivitami Multivitami Multivitam Medical n Adult 50 n Adult 50 in Adult Plus 0.4 Plus 0.4 50 Plus mg-300 mg-300 0.4 mg-300 mcg-250 mcg mcg-250 mcg mcg-250 tablet Take tablet Take mcg tablet 1 tablet 1 tablet Take 1 every day every day tablet by oral by oral every day route. route. by oral route. divalproex divalproex No divalproex [facility] 500 mg 500 mg 500 mg Medical tablet,jeane tablet,jeane tablet,del yed release yed release ayed Take 1 Take 1 release tablet tablet Take 1 every 8 every 8 tablet hours by hours by every 8 oral route oral route hours by for 30 for 30 oral route days. days. for 30 days. ferrous ferrous No 1 Q1D ferrous [facility] sulfate 325 sulfate 325 sulfate Medical mg (65 mg mg (65 mg 325 mg (65 iron) iron) mg iron) tablet Take tablet Take tablet 1 tablet 1 tablet Take 1 every day every day tablet by oral by oral every day route. route. by oral route. gabapentin gabapentin No gabapentin [facility] 300 mg 300 mg 300 mg Medical capsule capsule capsule Take 1 Take 1 Take 1 capsule 3 capsule 3 capsule 3 times a day times a day times a by oral by oral day by route for route for oral route 30 days. 30 days. for 30 days. ibuprofen ibuprofen No 1 Q8H ibuprofen [facility] 600 mg 600 mg 600 mg Medical tablet Take tablet Take tablet 1 tablet 1 tablet Take 1 every 8 every 8 tablet hours by hours by every 8 oral route oral route hours by for 30 for 30 oral route days. days. for 30 days. Jesus 7 Jesus 7 No Jesus 7 [facility] gram-7 gram-7 gram-7 Medical gram-1.5 gram-1.5 gram-1.5 gram oral gram oral gram oral powder powder powder packet 1 packet 1 packet 1 packet packet packet twice a day twice a day twice a by oral by oral day by route mixed route mixed oral route in 8 oz of in 8 oz of mixed in 8 water water oz of water lactulose lactulose No lactulose [facility] 10 gram/15 10 gram/15 10 gram/15 Medical mL oral mL oral mL oral solution solution solution lactulose lactulose No 30mL BID lactulose [facility] 20 gram/30 20 gram/30 20 gram/30 Medical mL oral mL oral mL oral solution solution solution Take 30 mL Take 30 mL Take 30 mL twice a day twice a day twice a by oral by oral day by route. route. oral route. lisinopril lisinopril No lisinopril [facility] 10 mg 10 mg 10 mg Medical tablet 1 tablet 1 tablet 1 tablet tablet tablet orally orally orally daily hold daily hold daily hold if SBP <110 if SBP <110 if SBP and/or DBP< and/or DBP< <110 55mmHg 55mmHg and/or DBP< 55mmHg lorazepam lorazepam No lorazepam [facility] 0.5 mg 0.5 mg 0.5 mg Medical tablet Take tablet Take tablet 1 tablet 1 tablet Take 1 every 12 every 12 tablet hours by hours by every 12 oral route oral route hours by for 30 for 30 oral route days. days. for 30 days. magnesium magnesium No magnesium [facility] oxide 400 oxide 400 oxide 400 Medical mg (241.3 mg (241.3 mg (241.3 mg mg mg magnesium) magnesium) magnesium) tablet 1 tablet 1 tablet 1 ablet ablet ablet orally orally orally daily as daily as daily as needed for needed for needed for constipatio constipatio constipati n n on nystatin nystatin No nystatin [facility] via 100,000 100,000 100,000 Medica l unit/gram unit/gram unit/gram topical topical topical cream cream cream Probiotic Probiotic No Probiotic [facility] )actobacill )actobacill )actobacil Medical [facility] combination combination combinatio no 4) no 4) n no 4) capsule: 3 capsule: 3 capsule: 3 billion billion billion cell: amt 1 cell: amt 1 cell: amt oral twice oral twice 1 oral a day a day twice a day protein protein No protein [facility] supplement supplement supplement Medical ProMod ProMod ProMod liquid liquid liquid amt:30ml; amt:30ml; amt:30ml; oral twice oral twice oral twice a day a day a day quetiapine quetiapine No quetiapine [facility] 200 mg 200 mg 200 mg Medical tablet 1 tablet 1 tablet 1 tablet tablet tablet orally orally orally daily hold daily hold daily hold if patient if patient if patient excessively excessively excessivel sedated sedated y sedated quetiapine quetiapine No quetiapine [facility] 400 mg 400 mg 400 mg Medical tablet amt tablet amt tablet amt 400mg; 400mg; 400mg; oral; at oral; at oral; at bedtime bedtime bedtime sertraline sertraline No sertraline [facility] 100 mg 100 mg 100 mg Medical tablet Take tablet Take tablet 1 tablet 1 tablet Take 1 every day every day tablet by oral by oral every day route. route. by oral route. tramadol 50 tramadol 50 No tramadol [facility] mg tablet mg tablet 50 mg Medi john amt 1 tab; amt 1 tab; tablet amt oral; three oral; three 1 tab; times a times a oral; day; day; three special special times a instruction instruction day; s: have s: have special some in some in instructio house for house for ns: have resident resident some in house for resident Tums 200 mg Tums 200 mg No Tums 200 [facility] calcium calcium mg calcium Med ical (500 mg) (500 mg) (500 mg) chewable chewable chewable tablet 1 tablet 1 tablet 1 tab orally tab orally tab orally three times three times three a day a day times a day Tylenol 325 Tylenol 325 No Tylenol [facility] mg tablet mg tablet 325 mg Med ical amt 2 amt 2 tablet amt tabets; tabets; 2 tabets; oral/ give oral/ give oral/ give prn for prn for prn for pain once a pain once a pain once day day a day Celexa Celexa Yes Na Arteaga 1 tablet Comm on [facility] Lisinopril Lisinopril Yes Na Arteaga 1 tablet Common [facility] Lipitor Lipitor Yes Na Arteaga 1 tablet Co mmon [facility] Immunizations Ordered Immunization Filled Immunization Date Status Commen ts Source Name Name COVID-19 (SARS-COV-2) COVID-19 (SARS-COV-2) 2021-09-08 Completed [facility] vaccine, unspecified vaccine, unspecified 00:00:00 Medical influenza, influenza, 2021-07-09 Completed [facility] injectable, injectable, 00:00:00 Medical quadrivalent quadrivalent COVID-19 (SARS-COV-2) COVID-19 (SARS-COV-2) 2020-10-22 Completed [facility] vaccine, unspecified vaccine, unspecified 00:00:00 Medical COVID-19 (SARS-COV-2) COVID-19 (SARS-COV-2) 2020-10-05 Completed [facility] vaccine, unspecified vaccine, unspecified 00:00:00 Medical pneumococcal pneumococcal 2015-07-23 Completed [facility] polysaccharide PPV23 polysaccharide PPV23 00:00:00 Medical influenza, seasonal, influenza, seasonal, 2014-07-15 Completed [facility] injectable, injectable, 00:00:00 Medical preservative free preservative free Vital Signs Vital Name Observation Time Observation Value Comments Source BP Diastolic 2022-07-06 00:00:00 72 mm[Hg] [facility] Height 2022-07-06 00:00:00 66 [in_i] [facility] BMI (Body Mass Index) 2022-07-06 00:00:00 26.5 kg/m2 [facility] BP Systolic 2022-07-06 00:00:00 114 mm[Hg] Rica richardson Body Weight 2022-07-06 00:00:00 2624 [oz_av] [facility] Weight 2019-08-13 07:00:00 81.28 KG Height 2019-08-10 17:00:00 187.96 CM Procedures Procedure Date / Time Performed Performing Clinician Dean albrecht [id number] 2021-11-13 00:00:00 [facility] [id number] 2021-11-02 00:00:00 [facility] [id number] 2021-11-02 [facility] [id number] 2021-11-02 00:00:00 [facility] [id number] 2021-11-02 00:00:00 [facility] [id number] 2021-11-02 00:00:00 [facility] [id number] 2021-11-02 00:00:00 [facility] [id number] 2021-11-02 00:00[facility] [id number] 2021-10-28 00:00:00 [facility] Encounters Start End Encounter Admission Attending Care Care Encounter Source Date/Time Date/Time Type Type Clinicians Facility Department ID 2021-10-14 [facility] [id number] 2 Common 11:22:12 [id number] [facility] 2021-10-14 Outpatient Laura Arteaga [facility] [id number] 2 Common 11:21:51 [id number] [facility] 2022-07-15 2022-07-15 Outpatient GC_BAHC_Tod PRIV PRIV [id number] [facility] 00:00:00 00:00:00 d_J [id number] Medica l 2022-07-09 2022-07-09 Outpatient GC_BAHC_Tod PRIV PRIV [id number] [facility] 00:00:00 00:00:00 d_J [id number] Medica l 2022-07-09 2022-07-09 [facility]ia [facility] 021 [facility] 00:00:00 00:00:00 [facility] - Med ical [address] [facility] [address] , Ph. 2022-07-06 2022-07-06 Outpatient GC_BAHC_Tod PRIV PRIV [id number] [facility] 00:00:00 00:00:00 d_J [id number] Medica l 2022-07-06 2022-07-06 Mathew Cardona [facility] [id number] [facility] 00:00:00 00:00:00 Jenaro [facility] - Med ical MD: [address] [facility] [address] , Ph. 2022-06-29 2022-06-29 Outpatient GC_BAHC_Tod PRIV PRIV [id number] [facility] 00:00:00 00:00:00 d_J [id number] Medica l 2022-06-02 2022-06-02 Outpatient GC_BAHC_Tod PRIV PRIV [id number] [facility] 00:00:00 00:00:00 d_J [id number] Medica l 2022-06-01 2022-06-01 Outpatient Michel, PRIV PRIV [id number] 00:00:00 00:00:00 Katia [id number] 2022-05-31 2022-05-31 Outpatient GC_BAHC_Tod PRIV PRIV [id number] [facility] 00:00:00 00:00:00 d_J [id number] Medica l 2022-05-28 2022-05-28 Outpatient GC_BAHC_Tod PRIV PRIV [id number] [facility] 00:00:00 00:00:00 d_J [id number] Medica l 2022-05-25 2022-05-25 Outpatient GC_BAHC_Tod PRIV PRIV [id number] [facility] 00:00:00 00:00:00 d_J [id number] Medica l 2022-05-20 2022-05-20 Outpatient GC_BAHC_Tod PRIV PRIV [id number] [facility] 00:00:00 00:00:00 d_J [id number] Medica l 2022-05-10 2022-05-10 Outpatient GC_BAHC_Tod PRIV PRIV [id number] [facility] 00:00:00 00:00:00 d_J [id number] Medica l 2022-05-07 2022-05-07 Outpatient GC_BAHC_Tod PRIV PRIV [id number] [facility] 00:00:00 00:00:00 d_J [id number] Medica l 2022-05-07 2022-05-07 Outpatient Michel, PRIV PRIV [id number] 00:00:00 00:00:00 Katia [id number] 2022-05-05 2022-05-05 Outpatient GC_BAHC_Tod PRIV PRIV [id number] [facility] 00:00:00 00:00:00 d_J [id number] Medica l 2022 2022 Outpatient GC_BAHC_Tod PRIV PRIV [id number] [facility] 00:00:00 00:00:00 d_J [id number] Medica l 2022 2022 Outpatient Jenaro, PRIV PRIV [id number] 00:00:00 00:00:00 Mathew Cardona [id number] 2022-04-12 2022-04-12 Outpatient GC_BAHC_Tod PRIV PRIV [id number] [facility] 11:50:00 11:50:00 d_J [id number] Medica l 2022-04-06 2022-04-06 Outpatient GC_BAHC_Tod PRIV PRIV [id number] [facility] 10:04:00 10:04:00 d_J [id number] Medica l 2022-04-06 2022-04-06 Outpatient GC_BAHC_Tod PRIV PRIV [id number] [facility] 10:04:00 10:04:00 d_J [id number] Medica l 2022-04-06 2022-04-06 Outpatient Michel, PRIV PRIV [id number] 00:00:00 00:00:00 Katia [id number] 2022-03-29 2022-03-29 Outpatient GC_BAHC_Tod PRIV PRIV [id number] [facility] 02:04:00 02:04:00 d_J [id number] Medica l 2022-03-28 2022-03-28 Outpatient GC_BAHC_Tod PRIV PRIV [id number] [facility] 10:59:00 10:59:00 d_J [id number] Medica l 2022-03-26 2022-03-26 Outpatient GC_BAHC_Tod PRIV PRIV [id number] [facility] 12:02:00 12:02:00 d_J [id number] Medica l 2022-03-25 2022-03-25 Outpatient GC_BAHC_Tod PRIV PRIV [id number] [facility] 10:06:00 10:06:00 d_J [id number] Medica l 2022-03-19 2022-03-19 Outpatient GC_BAHC_Tod PRIV PRIV [id number] [facility] 04:13:00 04:13:00 d_J [id number] Medica l 2022-03-19 2022-03-19 Outpatient Michel, PRIV PRIV [id number] 00:00:00 00:00:00 Katia [id number] 2022-03-17 2022-03-17 Outpatient GC_BAHC_Tod PRIV PRIV [id number] [facility] 09:14:00 09:14:00 d_J [id number] Medica l 2022-03-14 2022-03-14 Outpatient GC_BAHC_Tod PRIV PRIV 239 [id number] [facility] 10:45:00 10:45:00 d_J [id number] Medica l 2022-03-12 2022-03-12 Outpatient GC_BAHC_Tod PRIV PRIV [id number] [facility] 04:53:00 04:53:00 d_J [id number] Medica l 2022-03-05 2022-03-05 Outpatient GC_BAHC_Tod PRIV PRIV [id number] [facility] 09:05:00 09:05:00 d_J [id number] Medica l 2022-03-05 2022-03-05 Outpatient GC_BAHC_Tod PRIV PRIV 239 [id number] [facility] 09:05:00 09:05:00 d_J [id number] Medica l 2022-03-05 2022-03-05 Outpatient Michel, PRIV PRIV [id number] 00:00:00 00:00:00 Katia [id number] 2022-03-04 2022-03-04 Outpatient GC_BAHC_Tod PRIV PRIV [id number] [facility] 10:54:00 10:54:00 d_J [id number] Medica l 2022-03-04 2022-03-04 Outpatient Jenaro, PRIV PRIV [id number] 00:00:00 00:00:00 Mathew Cardona [id number] 2022-02-21 2022-02-21 Outpatient GC_BAHC_Tod PRIV PRIV [id number] [facility] 10:40:00 10:40:00 d_J [id number] Medica l 2022-02-18 2022-02-18 Outpatient GC_BAHC_Tod PRIV PRIV [id number] [facility] 02:07:00 02:07:00 d_J [id number] Medica l 2022-02-15 2022-02-15 Outpatient GC_BAHC_Tod PRIV PRIV 239 [id number] [facility] 02:03:00 02:03:00 d_J [id number] Medica l 2022-02-12 2022-02-12 Outpatient GC_BAHC_Tod PRIV PRIV [id number] [facility] 08:00:00 08:00:00 d_J [id number] Medica l 2022-02-12 2022-02-12 Outpatient Michel, PRIV PRIV [id number] 00:00:00 00:00:00 Katia [id number] 2022-02-11 2022-02-11 Outpatient GC_BAHC_Tod PRIV PRIV [id number] [facility] 11:07:00 11:07:00 d_J [id number] Medica l 2022-02-10 2022-02-10 Outpatient GC_BAHC_Tod PRIV PRIV [id number] [facility] 05:20:00 05:20:00 d_J [id number] Medica l 2022-02-10 2022-02-10 Outpatient Michel, PRIV PRIV [id number] 00:00:00 00:00:00 Katia [id number] 2022-02-07 2022-02-07 Outpatient GC_BAHC_Tod PRIV PRIV [id number] [facility] 10:45:00 10:45:00 d_J [id number] Medica l 2022-02-05 2022-02-05 Outpatient GC_BAHC_Tod PRIV PRIV [id number] [facility] 09:30:00 09:30:00 d_J [id number] Medica l 2022-02-02 2022-02-02 Outpatient GC_BAHC_Tod PRIV PRIV [id number] [facility] 05:07:00 05:07:00 d_J [id number] Medica l 2022-02-02 2022-02-02 Outpatient Michel, PRIV PRIV [id number] 00:00:00 00:00:00 Katia [id number] 2022-01-29 2022-01-29 Outpatient GC_BAHC_Tod PRIV PRIV [id number] [facility] 01:17:00 01:17:00 d_J [id number] Medica l 2022-01-29 2022-01-29 Outpatient Michel, PRIV PRIV [id number] 00:00:00 00:00:00 Katia [id number] 2022-01-27 2022-01-27 Outpatient GC_BAHC_Tod PRIV PRIV [id number] [facility] 10:53:00 10:53:00 d_J [id number] Medica l 2022-01-19 2022-01-19 Outpatient GC_BAHC_Tod PRIV PRIV [id number] [facility] 07:50:00 07:50:00 d_J [id number] Medica l 2022-01-19 2022-01-19 Outpatient Michel, PRIV PRIV [id number] 00:00:00 00:00:00 Katia [id number] 2022-01-16 2022-01-16 Outpatient GC_BAHC_Tod PRIV PRIV [id number] [facility] 09:17:00 09:17:00 d_J [id number] Medica l 2022-01-10 2022-01-10 Outpatient GC_BAHC_Tod PRIV PRIV [id number] [facility] 08:11:00 08:11:00 d_J [id number] Medica l 2022-01-07 2022-01-07 Outpatient GC_BAHC_Tod PRIV PRIV [id number] [facility] 08:29:00 08:29:00 d_J [id number] Medica l 2022-01-07 2022-01-07 Outpatient Jenaro, PRIV PRIV [id number] 00:00:00 00:00:00 Mathew Cardona [id number] 2022-01-07 2022-01-07 Outpatient Jenaro, PRIV PRIV [id number] 00:00:00 00:00:00 Mathew Cardona [id number] 2022-01-05 2022-01-05 Outpatient GC_BAHC_Tod PRIV PRIV [id number] [facility] 01:05:00 01:05:00 d_J [id number] Medica l 2022-01-01 2022-01-01 Outpatient GC_BAHC_Tod PRIV PRIV [id number] [facility] 02:12:00 02:12:00 d_J [id number] Medica l 2021-12-31 2021-12-31 Outpatient GC_BAHC_Tod PRIV PRIV [id number] [facility] 05:55:00 05:55:00 d_J [id number] Medica l 2021-12-31 2021-12-31 Outpatient [place], PRIV PRIV [id number] 00:00:00 00:00:00 December [id number] 2021-12-31 2021-12-31 Outpatient [place], PRIV PRIV [id number] 00:00:00 00:00:00 December [id number] 2021-12-28 2021-12-28 Outpatient GC_BAHC_Spa PRIV PRIV [id number] [facility] 05:07:00 05:07:00 fish_Christina [id number] Medica l 2021-10-28 2021-11-17 Emergency EM Micheal, HCACL MEDI.01 [id number] [facility] 00:33:00 16:31:[address] [place] [address] 2020-06-21 2020-06-21 Outpatient KNOW, HCABM OPLA [id number] [facility] 11:51:00 11:51:00 DOES_NOT 60 [facility] 2019-12-05 2019-12-05 [facility] [id number] Common 09:37:00 09:37:00 DxTerity [facility] it [address] [facility] 2019-08-20 2019-08-20 [facility] [id number] Common 11:20:00 11:20:00 DxTerity [facility] it Drive [facility] 2019-08-10 2019-08-18 Inpatient E [facility] [id number] [address] [place] [address] 20:44:00 15:00:00 [facility] 2019-08-09 2019-08-09 [facility] [id number] Common 16:31:00 16:31:00 [place] [address] [facility] 2019-08-07 2019-08-07 [facility] [id number] Common 14:43:00 14:43:00 [place] [address] [facility] 2019-05-16 2019-05-16 [facility] [id number] Common 10:20:00 10:20:00 [place] [address] [facility] 2019-02-27 2019-02-27 [facility] [id number] Common 13:20:00 13:20:00 [place] [address] [facility] 2019-01-01 2019-01-01 [facility] [id number] Common 09:54:00 09:54:00 [place] [address] [facility] 2019-01-01 2019-01-01 [facility] [id number] Common 09:00:00 09:00:00 [place] [address] [facility] 2018-11-30 2018-11-30 [facility] [id number] Common 10:45:00 10:45:00 [place] [address] [facility] 2018-11-24 2018-11-24 [facility] [id number] Common 15:45:00 15:45:00 [place] [address] [facility] 2018-10-25 2018-10-25 [facility] [id number] Common 09:00:00 09:00:00 [place] [address] [facility] 2018-08-30 2018-08-30 [facility] [id number] Common 09:45:00 09:45:00 [place] [address] [facility] 2018-08-29 2018-08-29 [facility] [id number] Common 09:54:00 09:54:00 [place] [address] [facility] 2018-06-30 2018-06-30 [facility] [id number] Common 09:30:00 09:30:00 [place] [address] [facility] 2018-05-31 2018-05-31 [facility] [id number] Common 15:00:00 15:00:00 [place] [address] [place] [address] [facility] 2018-05-03 2018-05-03 [facility] [id number] Common 09:30:00 09:30:00 [place] [address] [facility] 2018-03-30 2018-03-30 [facility] [id number] Common 16:33:00 16:33:00 [place] [address] [place] [address] [facility] 2018-03-23 2018-03-23 [facility] [id number] Common 08:36:00 08:36:00 [place] [address] [place] [address] [facility] 2018-03-21 2018-03-21 [facility] [id number] Common 08:45:00 08:45:00 [place] [address] [place] [address] [facility] 2018-02-20 2018-02-20 [facility] [id number] Common 08:45:00 08:45:00 [place] [address] [place] [address] [facility] 2018-01-20 2018-01-20 [facility] [id number] Common 09:00:00 09:00:00 [place] [address] [place] [address] [facility] Results Test Description Test Time Test Comments Results Result Comments Source SURGICAL 2021-11-17 15:15:00 Test Item Value Reference Range Interpretation Comme nts SURGICAL RUN (test DATE: 11/17/21 [place] - LAB PAGE 1 RUN TIME: 1515 Specimen Inquiry RUN USER: INTERFACE code = MIKE ROGERS) NT: VIKA CHEN ACCT #: [id number] LOC: [facility] U #: [id number] AGE/SX: 56/M ROOM: [facility] RE10/28/21REG DR: Roselia Burton MD : 61 BED : 1 DIS: STATUS: ADM IN TLOC: SPEC #: [id number] RECD: STATUS: RICARDO HUERTAS #: [id number] ABNER: 11/13/21- SUBM DR: Matt Herrera MD ENTERED: 11/16/21-1029 SP TYPE: SURGICAL OTHR DR: Self Referred Dillon Herrera MD,Jordi Luis MD, MD,Donald David MD DPMORDERED: BONE DECAL, GM L EVEL 5, ANATOMIC SPEC CODES: [id number] - LEG, NOS COPIES TO: Self Referred Matt Herrera MD [address] [place] [address] Dillon Herrera MD [address] [facility] [address] [place] [address] Rafael Isidro Elan GLASER [address] [facility] [address] [place] [address] [place] [address] [place] [address] [email or web address] Savanna Lira MD [address] [facility] [address] [place] [address] Donald Evans [facility] [address] [facility] [place] [address] [email or web address] CONTINUED ON NEXT PAGE RUN DATE: 11/17/21 [place] - LAB PAGE 2 RUN TIME: 1515 Specimen Inquiry RUN USER: INTERFACE SPEC #: [id number] PATIENT: VIKA CHEN #[id number] (Continued) ------ PROCEDURES: BONE DECA L (11/16/21-155) GM LEVEL 5 (11/16/21-1030) TISSUES: LEG, NOS - LEFT AKA CLINICAL HISTORY SAME FI NAL DIAGNOSIS Left foot and leg, tsctz-sce-llyx amputation: Gangrenous extremity with ul cer andosteomyelitis; calcified arterial sclerosis; viable skin and soft tissue resection margin ;femoral bone margin negative for osteomyelitis. GROSS DESCRIPTION Received fresh without fixat karuna labeled "left foot/leg "is an above-knee amputationspecimen. It measures 27 cm from heel-to- toe tip, 53 cm from heel to patella, 9 cm frompatella to femur resection margin. The skin a nd soft tissue resection margin appears freshand viable. The popliteal 3 artery is remark able for a metal stent. The foot is remarkablefor large areas of black gangrene, up to 15 cm including the fifth toe. A 3.5 cm ulcer isnot present at the heel. Brass Cleaner sections are submitted: (A) femur marrow margin;(B) skin and soft tissue resection margin; (C) popliteal artery margin; (D) heel ulcer withbone after decal. Technical component performed at [facility],[address] [place] [address], [place] [address] Unless gross only, the diagnosis is based upon m icroscopic examination.Immunohistochemistry: This test was developed and its performance characteristicsdetermined by this laboratory. It has not been approved nor does it need approvalby the [place] FDA. Appro priate positive and negative controls are reviewed and judgedto be acceptable. This laboratory is certified under the Clinical Laboratory ImprovementAmendments (CLIA-88) as qualified to [facility] high complexity clinical laboratory testing. CLINICAL INFORMATION LEFT FOOT GANGRENE --- Signed SIGNATURE ON FILE Siena Still 11/17/21 1515 END OF REPORT COVID 19 INHOUSE [id number] 13:30:00 Test Item Value Reference Range Interpretation Comments COVID 19 INHOUSE Negative Negative A negative result is AG (test code = presumptive and should be [id number]) confirmedwith a n FDA authorized mole cular [...] high or waivedcomplexit y tests. BASIC METABOLIC [id number] 07:46:00 Test Item Value Reference Range Interpretation [...] 8.1 mg/dL 8.0-10.5 N CA) CBC W/AUTO [id number] 07:08:00 Test Item Value Reference Range Interpretation [...] REQUIRED (test code NO = MDIFF) PROTHROMBIN [id number] 06:19:00 Test Item Value Reference Range Interpretation Comments PROTHROMBIN TIME 13.1 SECONDS 9.3-12.9 H PATIENT (test code = PTP) INTERNATIONAL NORMAL 1.2 0.8-1.2 N TARGET INR BY RATIO (test code = INDICATIO N Indication INR) INR1. Prophylax is of venous thrombos is 2.0 - 3.0 (orthoped ic surgery), Proph ylaxis of venous throm bosis (other than hig h-risk surgery), Treat ment of Deep Vein Thrombosis/Pulm onary Embolism, Preve ntion of systemic emb olism - Tissue heart va lves, Acute Myocardia l Infarction (to prevent systemic emboli sm), Valvular heart disease, Atrial Fibrillation, Bileaflet mecha nical valve in aortic position.2. Mec hanical prosthetic valv es (high risk), 2. 5 - 3.5 Presence of Lup us Anticoagulant o r Antiphospholipi d Antibodies, Pre vention of systemic emb olism - Acute Myocardia l Infarction (to prevent recurrent infar ct). BASIC METABOLIC [id number] 06:02:00 Test Item Value Reference Range Interpretation [...] 9.1 mg/dL 8.0-10.5 N CA) CBC W/AUTO [id number] 06:01:00 Test Item Value Reference Range Interpretation [...] REQUIRED (test code NO = MDIFF) GLUCOSE [id number] 05:59:00 Test Item Value Reference Range Interpretation Comments GLUCOSE BEDSIDE (test 78 MG/DL 70-110 N Perfor med by certified code = GLUBED) 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 [facility] - XR CHEST 1 [id number] 00:00:00 [facility] : 1965 Sex: M FAX: Rayo Adkins [facility] [phone] [place]: St: FAX: Savanna Louise [phone] FAX: Roselia Marquez MD [phone] Name: VIKA CHEN [facility] : 1965 Age/S: 56/M [address] [place] [address] Unit #: [id number] Loc: [place] [address] Phys: Rayo Moreira DPM Acct: [id number] Dis Date: Status:ADM IN PHONE #: [phone] Exam Date: 11/12/20211856 FAX #: [phone] Reason: PRE OP EXAMS: CPT CODE: [id number] XR CHEST 1 V 85961 PROCEDURE INFORMATION: Exam: XR Chest Exam date and time: 11/12/2021 6:33 PM Age: 56 years old Clinical indication: Pre-operative exam; Respiratory screening exam; Additional info: Pre op TECHNIQUE: Imaging protocol: XR of the chest. Views: 1 view. COMPARISON: CR XRCHEST 1V 10/27/2021 11:29 PM FINDINGS: Limitations: Left lateral lung not included on study. Patient rotation to right. Lungs: There is crowding of the pulmonary vessels due to hypoinflation. No focal consolidation in the right lung is present. There is limited visualization of the lateral left lung. Pleural spaces: No pleural effusion. No pneumothorax. Heart/Mediastinum: Heart size is within normal dudley its. Aortic calcifications. Bones/joints: No acute abnormality. IMPRESSION: Hypoinflated lungs. No acute consolidation or interstitial edema identified. at 0700 Reported and signed by: Faustino Sims M.D. CC: Rayo Moreira DPM; Savanna Lira MD; Roselia Burton MD Technologist: Sukhwinder Neil RT(R) Trnscrd Date/Time/By: 11/13/2021 (699) : By: [email or web address] Orig Print D/T: S: 11/13/2021 (699) PAGE 1 Signed ReportCOVID 19 Asymptomatic IH [id number] 10:31:00 Test Item Value Reference Range Interpretation Comments COVID 19 Asymptomatic Negative Negative A nega tive result is IH AG (test code = presumpti ve and should COVNONPUIAG) be confirmedwit h an FDA authorized mole cular assay, if neces ana forpatient eva arnulfo.A positive result does not rule out co-inf [...] moderate, high or waivedcomplexit y tests. VANCOMYCIN [id number] 05:05:00 Test Item Value Reference Range Interpretation Comments VANCOMYCIN TROUGH 15.0 mcg/mL 10.0-20.0 N 10-15 mcg/ mL - (test code = VANCT) Cellulit is, Urinary Tract Infection . 15-20 mcg/mL - Bacteremia, Infective Endocarditis, Meningitis, Osteomyelitis, Pneumonia, Su re Skin/Soft-Tissu e Infection, Spin al Abscess. GLUCOSE [id number] 22:18:00 Test Item Value Reference Range Interpretation Comments GLUCOSE BEDSIDE (test 95 MG/DL 70-110 N Perfor med by certified code = GLUBED) 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 [facility] GLUCOSE [id number] 15:48:00 Test Item Value Reference Range Interpretation Comments GLUCOSE BEDSIDE (test 65 MG/DL 70-110 L Perfor med by certified code = GLUBED) 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 [facility] GLUCOSE [id number] 11:32:00 Test Item Value Reference Range Interpretation Comments GLUCOSE BEDSIDE (test 98 MG/DL 70-110 N Perfor med by certified code = GLUBED) 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 [facility] GLUCOSE [id number] 07:44:00 Test Item Value Reference Range Interpretation Comments GLUCOSE BEDSIDE (test 86 MG/DL 70-110 N Perfor med by certified code = GLUBED) 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 [facility] GLUCOSE [id number] 20:12:00 Test Item Value Reference Range Interpretation Comments GLUCOSE BEDSIDE (test 109 MG/DL 70-110 N Perfor med by certified code = GLUBED) 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 [facility] GLUCOSE [id number] 16:27:00 Test Item Value Reference Range Interpretation Comments GLUCOSE BEDSIDE (test 98 MG/DL 70-110 N [facility] med by certified code = GLUBED) 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 [facility] VANCOMYCIN [id number] 14:11:00 Test Item Value Reference Range Interpretation Comments VANCOMYCIN TROUGH 8.2 mcg/mL 10.0-20.0 L 10-15 mcg/ mL - (test code = VANCT) Cellulit is, Urinary Tract Infection . 15-20 mcg/mL - Bacteremia, Inf ective Endocarditis, Meningitis, Osteomyelitis, Pneumonia, Su re Skin/Soft-Tissu e Infection, Spin al Abscess. BASIC METABOLIC [id number] 14:08:00 Test Item Value Reference Range Interpretation [...] 9.0 mg/dL 8.0-10.5 N CA) CBC W/AUTO [id number] 13:55:00 Test Item Value Reference Range Interpretation [...] REQUIRED (test code NO = MDIFF) GLUCOSE [id number] 11:41:00 Test Item Value Reference Range Interpretation Comments GLUCOSE BEDSIDE (test 95 MG/DL 70-110 N Perfor med by certified code = GLUBED) 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 [facility] GLUCOSE [id number] 07:36:00 Test Item Value Reference Range Interpretation Comments GLUCOSE BEDSIDE (test 83 MG/DL 70-110 N Perfor med by certified code = GLUBED) 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 [facility] GLUCOSE [id number] 19:49:00 Test Item Value Reference Range Interpretation Comments GLUCOSE BEDSIDE (test 116 MG/DL 70-110 H Perfor med by certified code = GLUBED) 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 [facility] VANCOMYCIN [id number] 17:07:00 Test Item Value Reference Range Interpretation Comments VANCOMYCIN TROUGH < 3.0 mcg/mL 10.0-20.0 L 10-15 mcg/ mL - (test code = VANCT) Cellulit is, Urinary Tract Infection . 15-20 mcg/mL - Bacteremia, Infective Endocarditis, Meningitis, Osteomyelitis, Pneumonia, Su re Skin/Soft-Tissu e Infection, Spin al Abscess. GLUCOSE [id number] 16:51:00 Test Item Value Reference Range Interpretation Comments GLUCOSE BEDSIDE (test 97 MG/DL 70-110 N Perfor med by certified code = GLUBED) 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 [facility] GLUCOSE [id number] 11:19:00 Test Item Value Reference Range Interpretation Comments GLUCOSE BEDSIDE (test 149 MG/DL 70-110 H Perfor med by certified code = GLUBED) 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 [facility] GLUCOSE [id number] 09:02:00 Test Item Value Reference Range Interpretation Comments GLUCOSE BEDSIDE (test 101 MG/DL 70-110 N Perfor med by certified code = GLUBED) 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 [facility] GLUCOSE [id number] 16:24:00 Test Item Value Reference Range Interpretation Comments GLUCOSE BEDSIDE (test 96 MG/DL 70-110 N Perfor med by certified code = GLUBED) 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 [facility] GLUCOSE [id number] 12:34:00 Test Item Value Reference Range Interpretation Comments GLUCOSE BEDSIDE (test 93 MG/DL 70-110 N Perfor med by certified code = GLUBED) 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 [facility] GLUCOSE [id number] 07:59:00 Test Item Value Reference Range Interpretation Comments GLUCOSE BEDSIDE (test 87 MG/DL 70-110 N Perfor med by certified code = GLUBED) 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 [facility] BLOOD UREA [id number] 04:11:00 Test Item Value Reference Range Interpretation Comments BLOOD UREA NITROGEN (test code = 13 mg/dL 7-18 BUN) [id number] 04:11:00 Test Item Value Reference Range Interpretation Comments CREATININE (test code = CREAT) 0.7 mg/dL 0.6-1.3 N GLUCOSE [id number] 20:35:00 Test Item Value Reference Range Interpretation Comments GLUCOSE BEDSIDE (test 106 MG/DL 70-110 N Perfor med by certified code = GLUBED) 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 [facility] GLUCOSE [id number] 16:32:00 Test Item Value Reference Range Interpretation Comments GLUCOSE BEDSIDE (test 109 MG/DL 70-110 N [facility] med by certified code = GLUBED) 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 [facility] COMPREHENSIVE METABOLIC [id number] 16:02:00 Test Item Value Reference Range Interpretation [...] N TOTAL (test code = ALKP) GLUCOSE [id number] 12:00:00 Test Item Value Reference Range Interpretation Comments GLUCOSE BEDSIDE (test 105 MG/DL 70-110 N Perfor med by certified code = GLUBED) 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 [facility] GLUCOSE [id number] 07:18:00 Test Item Value Reference Range Interpretation Comments GLUCOSE BEDSIDE (test 85 MG/DL 70-110 N Perfor med by certified code = GLUBED) 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 [facility] GLUCOSE [id number] 20:30:00 Test Item Value Reference Range Interpretation Comments GLUCOSE BEDSIDE (test 76 MG/DL 70-110 N Perfor med by certified code = GLUBED) 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 [facility] VANCOMYCIN [id number] 17:08:00 Test Item Value Reference Range Interpretation Comments VANCOMYCIN TROUGH 14.2 mcg/mL 10.0-20.0 N 10-15 mcg/ mL - (test code = VANCT) Cellulit is, Urinary Tract Infection . 15-20 mcg/mL - Bacteremia, Infective Endocarditis, Meningitis, Osteomyelitis, Pneumonia, Su re Skin/Soft-Tissu e Infection, Spin al Abscess. GLUCOSE [id number] 16:39:00 Test Item Value Reference Range Interpretation Comments GLUCOSE BEDSIDE (test 109 MG/DL 70-110 N Perfor med by certified code = GLUBED) 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 [facility] GLUCOSE [id number] 11:46:00 Test Item Value Reference Range Interpretation Comments GLUCOSE BEDSIDE (test 103 MG/DL 70-110 N Perfor med by certified code = GLUBED) 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 [facility] GLUCOSE [id number] 06:48:00 Test Item Value Reference Range Interpretation Comments GLUCOSE BEDSIDE (test 75 MG/DL 70-110 N Perfor med by certified code = GLUBED) 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 [facility] GLUCOSE [id number] 19:41:00 Test Item Value Reference Range Interpretation Comments GLUCOSE BEDSIDE (test 98 MG/DL 70-110 N Perfor med by certified code = GLUBED) 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 [facility] GLUCOSE [id number] 17:07:00 Test Item Value Reference Range Interpretation Comments GLUCOSE BEDSIDE (test 87 MG/DL 70-110 N Perfor med by certified code = GLUBED) 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 [facility] GLUCOSE [id number] 12:34:00 Test Item Value Reference Range Interpretation Comments GLUCOSE BEDSIDE (test 105 MG/DL 70-110 N Perfor med by certified code = GLUBED) 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 [facility] GLUCOSE [id number] 09:08:00 Test Item Value Reference Range Interpretation Comments GLUCOSE BEDSIDE (test 130 MG/DL 70-110 H [facility] by certified code = GLUBED) 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 [facility] BASIC METABOLIC [id number] 08:05:00 Test Item Value Reference Range Interpretation [...] 9.1 mg/dL 8.0-10.5 N CA) CBC W/AUTO [id number] 07:49:00 Test Item Value Reference Range Interpretation [...] REQUIRED (test code NO = MDIFF) GLUCOSE [id number] 21:23:00 Test Item Value Reference Range Interpretation Comments GLUCOSE BEDSIDE (test 91 MG/DL 70-110 N Perfor med by certified code = GLUBED) 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 [facility] GLUCOSE [id number] 16:42:00 Test Item Value Reference Range Interpretation Comments GLUCOSE BEDSIDE (test 89 MG/DL 70-110 N Perfor med by certified code = GLUBED) 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 [facility] GLUCOSE [id number] 12:20:00 Test Item Value Reference Range Interpretation Comments GLUCOSE BEDSIDE (test 74 MG/DL 70-110 N Perfor med by certified code = GLUBED) 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 [facility] GLUCOSE [id number] 22:34:00 Test Item Value Reference Range Interpretation Comments GLUCOSE BEDSIDE (test 98 MG/DL 70-110 N Perfor med by certified code = GLUBED) 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 [facility] GLUCOSE [id number] 15:35:00 Test Item Value Reference Range Interpretation Comments GLUCOSE BEDSIDE (test 106 MG/DL 70-110 N Perfor med by certified code = GLUBED) 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 [facility] GLUCOSE [id number] 07:51:00 Test Item Value Reference Range Interpretation Comments GLUCOSE BEDSIDE (test 110 MG/DL 70-110 N Perfor med by certified code = GLUBED) 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 [facility] CBC W/AUTO [id number] 07:02:00 Test Item Value Reference Range Interpretation [...] (test NO code = MDIFF) BASIC METABOLIC [id number] 06:15:00 Test Item Value Reference Range Interpretation [...] 21 MCG/ML 50.0-100.0 L = VALP) GLUCOSE [id number] 20:02:00 Test Item Value Reference Range Interpretation Comments GLUCOSE BEDSIDE (test 98 MG/DL 70-110 N Perfor med by certified code = GLUBED) 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 [facility] GLUCOSE [id number] 16:08:00 Test Item Value Reference Range Interpretation Comments GLUCOSE BEDSIDE (test 83 MG/DL 70-110 N Perfor med by certified code = GLUBED) 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 [facility] GLUCOSE [id number] 12:05:00 Test Item Value Reference Range Interpretation Comments GLUCOSE BEDSIDE (test 90 MG/DL 70-110 N Perfor med by certified code = GLUBED) 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 [facility] GLUCOSE [id number] 09:59:00 Test Item Value Reference Range Interpretation Comments GLUCOSE BEDSIDE (test 75 MG/DL 70-110 N Perfor med by certified code = GLUBED) 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 [facility] GLUCOSE [id number] 08:47:00 Test Item Value Reference Range Interpretation Comments GLUCOSE BEDSIDE (test 71 MG/DL 70-110 N Perfor med by certified code = GLUBED) 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 [facility] GLUCOSE [id number] 08:16:00 Test Item Value Reference Range Interpretation Comments GLUCOSE BEDSIDE (test 59 MG/DL 70-110 L Perfor med by certified code = GLUBED) 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 [facility] BASIC METABOLIC [id number] 07:59:00 Test Item Value Reference Range Interpretation [...] 9.1 mg/dL 8.0-10.5 N CA) CBC W/AUTO [id number] 07:49:00 Test Item Value Reference Range Interpretation [...] 0.0-0.1 N NRBC#) COVID 19 Asymptomatic IH [id number] 06:23:00 Test Item Value Reference Range Interpretation [...] moderate, high or waivedcomplexit y tests. GLUCOSE [id number] 18:01:00 Test Item Value Reference Range Interpretation Comments GLUCOSE BEDSIDE (test 127 MG/DL 70-110 H Perfor med by certified code = GLUBED) 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 [facility] VANCOMYCIN [id number] 14:38:00 Test Item Value Reference Range Interpretation Comments VANCOMYCIN TROUGH 11.1 mcg/mL 10.0-20.0 N 10-15 mcg/ mL - (test code = VANCT) Cellulit is, Urinary Tract Infection . 15-20 mcg/mL - Bacteremia, Infective Endocarditis, Meningitis, Osteomyelitis, Pneumonia, Su re Skin/Soft-Tissu e Infection, Spin al Abscess. GLUCOSE [id number] 12:15:00 Test Item Value Reference Range Interpretation Comments GLUCOSE BEDSIDE (test 130 MG/DL 70-110 H Perfor med by certified code = GLUBED) 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 [facility] CBC W/AUTO [id number] 09:05:00 Test Item Value Reference Range Interpretation [...] 0.00 x10 3/uL 0.0-0.1 N NRBC#) GLUCOSE [id number] 08:31:00 Test Item Value Reference Range Interpretation Comments GLUCOSE BEDSIDE (test 104 MG/DL 70-110 N Perfor med by certified code = GLUBED) 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 [facility] BASIC METABOLIC [id number] 07:54:00 Test Item Value Reference Range Interpretation [...] = 9.5 mg/dL 8.0-10.5 N CA) GLUCOSE [id number] 21:02:00 Test Item Value Reference Range Interpretation Comments GLUCOSE BEDSIDE (test 118 MG/DL 70-110 H Perfor med by certified code = GLUBED) 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 [facility] GLUCOSE [id number] 15:58:00 Test Item Value Reference Range Interpretation Comments GLUCOSE BEDSIDE (test 105 MG/DL 70-110 N Perfor med by certified code = GLUBED) 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 [facility] GLUCOSE [id number] 12:08:00 Test Item Value Reference Range Interpretation Comments GLUCOSE BEDSIDE (test 112 MG/DL 70-110 H Perfor med by certified code = GLUBED) 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 [facility] CBC W/AUTO [id number] 08:12:00 Test Item Value Reference Range Interpretation [...] 0.00 x10 3/uL 0.0-0.1 N NRBC#) GLUCOSE [id number] 07:51:00 Test Item Value Reference Range Interpretation Comments GLUCOSE BEDSIDE (test 103 MG/DL 70-110 N Perfor med by certified code = GLUBED) 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 [facility] BASIC METABOLIC [id number] 07:34:00 Test Item Value Reference Range Interpretation [...] = 8.9 mg/dL 8.0-10.5 N CA) GLUCOSE [id number] 20:06:00 Test Item Value Reference Range Interpretation Comments GLUCOSE BEDSIDE (test 138 MG/DL 70-110 H Perfor med by certified code = GLUBED) 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 [facility] GLUCOSE [id number] 16:20:00 Test Item Value Reference Range Interpretation Comments GLUCOSE BEDSIDE (test 89 MG/DL 70-110 N Perfor med by certified code = GLUBED) 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 [facility] VANCOMYCIN [id number] 13:00:00 Test Item Value Reference Range Interpretation Comments VANCOMYCIN TROUGH 17.8 mcg/mL 10.0-20.0 N 10-15 mcg/ mL - (test code = VANCT) Cellulit is, Urinary Tract Infection . 15-20 mcg/mL - Bacteremia, Infective Endocarditis, Meningitis, Osteomyelitis, Pneumonia, Su re Skin/Soft-Tissu e Infection, Spin al Abscess. GLUCOSE [id number] 11:31:00 Test Item Value Reference Range Interpretation Comments GLUCOSE BEDSIDE (test 130 MG/DL 70-110 H [facility] med by certified code = GLUBED) 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 [facility] BASIC METABOLIC [id number] 08:03:00 Test Item Value Reference Range Interpretation [...] = 8.8 mg/dL 8.0-10.5 N CA) GLUCOSE [id number] 07:23:00 Test Item Value Reference Range Interpretation Comments GLUCOSE BEDSIDE (test 82 MG/DL 70-110 N [facility] med by certified code = GLUBED) 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 [facility] CBC W/AUTO [id number] 07:22:00 Test Item Value Reference Range Interpretation [...] 0.00 x10 3/uL 0.0-0.1 N NRBC#) GLUCOSE [id number] 22:30:00 Test Item Value Reference Range Interpretation Comments GLUCOSE BEDSIDE (test 187

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
[2022-07-16 16:14] VITALS: BP 129/88; TEMP 98.1; O2SAT 97
== END 2022-07-16 15:41 | disposition home or self-care (01) ==
LOC: ER 13:53
DX: F41.1 Generalized anxiety disorder (principal); I10 Essential (primary) hypertension; F17.210 Nicotine dependence, cigarettes, uncomplicated; Z88.7 Allergy status to serum and vaccine
CPT/HCPCS: 99283

== ENCOUNTER 2022-11-23 13:37 | Emergency (ER) | payer OTHER ==
--- OUTSIDE RECORDS SUMMARY | 2022-11-23 13:49 | XMS REPORT | Continuity of Care Document ---
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 magnesium) tablet 1 tablet 1 tablet 1 ablet ablet ablet orally orally orally daily as daily as daily as needed for needed for needed for constipatio constipatio constipati n n on [facility] No [facility] (honey) (honey) (honey) Medica l paste 100% paste 100% paste 100% amt: 1 amt: 1 amt: 1 squirt squirt squirt topically topically topically to left to left to left hip/buttock hip/buttock hip/buttoc s wound s wound ks wound everyday everyday everyday until until until healed healed healed methadone 5 methadone 5 No 1 BID methadone [facility] mg tablet mg tablet 5 mg Medic al Take 1 Take 1 tablet tablet tablet Take 1 twice a day twice a day tablet by oral by oral twice a route. route. day by oral route. morphine morphine No morphine [facility] via concentrate concentrate concentrat Medical 100 mg/5 mL 100 mg/5 mL e 100 mg/5 (20 mg/mL) (20 mg/mL) mL (20 oral oral mg/mL) solution solution oral 0.25ml 0.25ml solution orally orally 0.25ml every 3 every 3 orally hours as hours as every 3 needed for needed for hours as pain and pain and needed for shortness shortness pain and of breath of breath shortness of breath Probiotic Probiotic No Probiotic [facility] )actobacill )actobacill )actobacil Medical [facility] combination combination combinatio no 4) no [...] oral; at oral; at bedtime bedtime bedtime Santyl 250 Santyl 250 No Santyl 250 [facility] unit/gram unit/gram unit/gram Medical topical topical topical ointment ointment ointment sertraline sertraline No sertraline [facility] 50 mg 50 mg 50 mg Medical tablet Take tablet Take tablet 1 tablet 1 tablet Take 1 every day every day tablet by oral by oral every day route for route for by oral 14 days. 14 days. route for 14 days. tramadol 50 tramadol 50 No tramadol [facility] [...] a pain once day day a day acetaminoph acetaminoph No acetaminop [facility] en 650 mg en 650 mg hen 650 mg Medical rectal rectal rectal suppository suppository suppositor Tylenol Tylenol y Tylenol INSERT 1 INSERT 1 INSERT 1 SUPPOSITORY SUPPOSITORY SUPPOSITOR (650 MG) BY (650 MG) BY Y (650 MG) RECTAL RECTAL BY RECTAL ROUTE EVERY ROUTE EVERY ROUTE 6 HOURS 6 HOURS EVERY 6 NEEDED NEEDED HOURS NEEDED atorvastati atorvastati No atorvastat [facility] n 10 [...] rectal route. route. route. buspirone buspirone No buspirone [facility] 7.5 mg 7.5 mg 7.5 mg Medical tablet Take tablet Take tablet 1 tablet 1 tablet Take 1 every 8 every 8 tablet hours by hours by every 8 oral route oral route hours by for 30 for 30 oral route days. days. for 30 days. Complete Complete No 1 Q1D Complete [facility] via Multivitami Multivitami Multivitam Medical n Adult 50 n Adult 50 in Adult Plus 0.4 Plus 0.4 50 Plus mg-300 mg-300 0.4 mg-300 mcg-250 mcg mcg-250 mcg mcg-250 tablet Take tablet Take mcg tablet 1 tablet 1 tablet Take 1 every day every day tablet by oral by oral every day route. route. by oral route. Depakote ER Depakote ER No Depakote [facility] 500 mg 500 mg ER 500 mg Medica l tablet,exte tablet,exte tablet,ext nded nded ended release release release Take 1 Take 1 Take 1 tablet tablet tablet every 8 every 8 every 8 hours by hours by hours by oral route oral route oral route for 30 for 30 for 30 days. days. days. ferrous ferrous No 1 Q1D ferrous [...] Take 1 Take 1 Take 1 capsule capsule capsule every 12 every 12 every 12 hours by hours by hours by oral route oral route oral route for 30 for 30 for 30 days. days. days. ibuprofen ibuprofen No 1 Q8H ibuprofen [...] water oz of water lactulose lactulose No 30mL BID lactulose [facility] [...] mg 0.5 mg 0.5 mg Medical tablet tablet tablet magnesium magnesium No magnesium [facility] oxide 400 oxide 400 oxide 400 Medical mg (241.3 mg (241.3 mg (241.3 mg mg mg magnesium) magnesium) magnesium) tablet 1 tablet 1 tablet 1 ablet ablet ablet orally orally orally daily as daily as daily as needed for needed for needed for constipatio constipatio constipati n n on MediHoney MediHoney No Mediney [facility] (honey) (honey) (honey) Medica l paste 100% paste 100% paste 100% amt: 1 amt: 1 amt: 1 squirt squirt squirt topically topically topically to left to left to left hip/buttock hip/buttock hip/buttoc s wound s wound ks wound everyday everyday everyday until until until healed healed healed methadone 5 methadone 5 No 1 BID methadone [facility] mg tablet mg tablet 5 mg Medic al Take 1 Take 1 tablet tablet tablet Take 1 twice a day twice a day tablet by oral by oral twice a route. route. day by oral route. morphine morphine No morphine [facility] via concentrate concentrate concentrat Medical 100 mg/5 mL 100 mg/5 mL e 100 mg/5 (20 mg/mL) (20 mg/mL) mL (20 oral oral mg/mL) solution solution oral 0.25ml 0.25ml solution orally orally 0.25ml every 3 every 3 orally hours as hours as every 3 needed for needed for hours as pain and pain and needed for shortness shortness pain and of breath of breath shortness of breath Probiotic Probiotic No Probiotic [facility] )actobacill )actobacill )actobacil Medical [facility] combination combination combinatio no 4) no [...] oral; at oral; at bedtime bedtime bedtime Santyl 250 Santyl 250 No Santyl 250 [facility] unit/gram unit/gram unit/gram Medical topical topical topical ointment ointment ointment sertraline sertraline No sertraline [facility] 50 mg 50 mg 50 mg Medical tablet Take tablet Take tablet 1 tablet 1 tablet Take 1 every day every day tablet by oral by oral every day route for route for by oral 14 days. 14 days. route for 14 days. tramadol 50 tramadol 50 No tramadol [facility] [...] a pain once day day a day acetaminoph acetaminoph No acetaminop [facility] en 650 mg en 650 mg hen 650 mg Medical rectal rectal rectal suppository suppository suppositor Tylenol Tylenol y Tylenol INSERT 1 INSERT 1 INSERT 1 SUPPOSITORY SUPPOSITORY SUPPOSITOR (650 MG) BY (650 MG) BY Y (650 MG) RECTAL RECTAL BY RECTAL ROUTE EVERY ROUTE EVERY ROUTE 6 HOURS 6 HOURS EVERY 6 NEEDED NEEDED HOURS NEEDED atorvastati atorvastati No atorvastat [facility] n 10 [...] rectal route. route. route. buspirone buspirone No buspirone [facility] 7.5 mg 7.5 mg 7.5 mg Medical tablet Take tablet Take tablet 1 tablet 1 tablet Take 1 every 8 every 8 tablet hours by hours by every 8 oral route oral route hours by for 30 for 30 oral route days. days. for 30 days. Complete Complete No 1 Q1D Complete [facility] via Multivitami Multivitami Multivitam Medical n Adult 50 n Adult 50 in Adult Plus 0.4 Plus 0.4 50 Plus mg-300 mg-300 0.4 mg-300 mcg-250 mcg mcg-250 mcg mcg-250 tablet Take tablet Take mcg tablet 1 tablet 1 tablet Take 1 every day every day tablet by oral by oral every day route. route. by oral route. Depakote ER Depakote ER No Depakote [facility] 500 mg 500 mg ER 500 mg Medica l tablet,exte tablet,exte tablet,ext nded nded ended release release release Take 1 Take 1 Take 1 tablet tablet tablet every 8 every 8 every 8 hours by hours by hours by oral route oral route oral route for 30 for 30 for 30 days. days. days. ferrous ferrous No 1 Q1D ferrous [...] Take 1 Take 1 Take 1 capsule capsule capsule every 12 every 12 every 12 hours by hours by hours by oral route oral route oral route for 30 for 30 for 30 days. days. days. ibuprofen ibuprofen No 1 Q8H ibuprofen [...] water oz of water lactulose lactulose No 30mL BID lactulose [facility] [...] mg 0.5 mg 0.5 mg Medical tablet tablet tablet magnesium magnesium No magnesium [facility] oxide 400 oxide 400 oxide 400 Medical mg (241.3 mg (241.3 mg (241.3 mg mg mg magnesium) magnesium) magnesium) tablet 1 tablet 1 tablet 1 ablet ablet ablet orally orally orally daily as daily as daily as needed for needed for needed for constipatio constipatio constipati n n on [facility] No [facility] (honey) (honey) (honey) Medica l paste 100% paste 100% paste 100% amt: 1 amt: 1 amt: 1 squirt squirt squirt topically topically topically to left to left to left hip/buttock hip/buttock hip/buttoc s wound s wound ks wound everyday everyday everyday until until until healed healed healed methadone 5 methadone 5 No 1 BID methadone [facility] mg tablet mg tablet 5 mg Medic al Take 1 Take 1 tablet tablet tablet Take 1 twice a day twice a day tablet by oral by oral twice a route. route. day by oral route. morphine morphine No morphine [facility] via concentrate concentrate concentrat Medical 100 mg/5 mL 100 mg/5 mL e 100 mg/5 (20 mg/mL) (20 mg/mL) mL (20 oral oral mg/mL) solution solution oral 0.25ml 0.25ml solution orally orally 0.25ml every 3 every 3 orally hours as hours as every 3 needed for needed for hours as pain and pain and needed for shortness shortness pain and of breath of breath shortness of breath Probiotic Probiotic No Probiotic [facility] )actobacill )actobacill )actobacil Medical [facility] combination combination combinatio no 4) no [...] oral; at oral; at bedtime bedtime bedtime Santyl 250 Santyl 250 No Santyl 250 [facility] unit/gram unit/gram unit/gram Medical topical topical topical ointment ointment ointment sertraline sertraline No sertraline [facility] 50 mg 50 mg 50 mg Medical tablet Take tablet Take tablet 1 tablet 1 tablet Take 1 every day every day tablet by oral by oral every day route for route for by oral 14 days. 14 days. route for 14 days. tramadol 50 tramadol 50 No tramadol [facility] [...] a pain once day day a day acetaminoph acetaminoph No acetaminop [facility] en 650 mg en 650 mg hen 650 mg Medical rectal rectal rectal suppository suppository suppositor Tylenol Tylenol y Tylenol INSERT 1 INSERT 1 INSERT 1 SUPPOSITORY SUPPOSITORY SUPPOSITOR (650 MG) BY (650 MG) BY Y (650 MG) RECTAL RECTAL BY RECTAL ROUTE EVERY ROUTE EVERY ROUTE 6 HOURS 6 HOURS EVERY 6 NEEDED NEEDED HOURS NEEDED atorvastati atorvastati No atorvastat [facility] n 10 [...] rectal route. route. route. buspirone buspirone No buspirone [facility] 7.5 mg 7.5 mg 7.5 mg Medical tablet Take tablet Take tablet 1 tablet 1 tablet Take 1 every 8 every 8 tablet hours by hours by every 8 oral route oral route hours by for 30 for 30 oral route days. days. for 30 days. Complete Complete No 1 Q1D Complete [facility] via Multivitami Multivitami Multivitam Medical n Adult 50 n Adult 50 in Adult Plus 0.4 Plus 0.4 50 Plus mg-300 mg-300 0.4 mg-300 mcg-250 mcg mcg-250 mcg mcg-250 tablet Take tablet Take mcg tablet 1 tablet 1 tablet Take 1 every day every day tablet by oral by oral every day route. route. by oral route. Depakote ER Depakote ER No Depakote [facility] 500 mg 500 mg ER 500 mg Medica l tablet,exte tablet,exte tablet,ext nded nded ended release release release Take 1 Take 1 Take 1 tablet tablet tablet every 8 every 8 every 8 hours by hours by hours by oral route oral route oral route for 30 for 30 for 30 days. days. days. ferrous ferrous No 1 Q1D ferrous [...] Take 1 Take 1 Take 1 capsule capsule capsule every 12 every 12 every 12 hours by hours by hours by oral route oral route oral route for 30 for 30 for 30 days. days. days. ibuprofen ibuprofen No 1 Q8H ibuprofen [...] water oz of water lactulose lactulose No 30mL BID lactulose [facility] [...] mg 0.5 mg 0.5 mg Medical tablet tablet tablet magnesium magnesium No magnesium [facility] oxide 400 oxide 400 oxide 400 Medical mg (241.3 mg (241.3 mg (241.3 mg mg mg magnesium) magnesium) magnesium) tablet 1 tablet 1 tablet 1 ablet ablet ablet orally orally orally daily as daily as daily as needed for needed for needed for constipatio constipatio constipati n n on [facility] No [facility] (honey) (honey) (honey) Medica l paste 100% paste 100% paste 100% amt: 1 amt: 1 amt: 1 squirt squirt squirt topically topically topically to left to left to left hip/buttock hip/buttock hip/buttoc s wound s wound ks wound everyday everyday everyday until until until healed healed healed methadone 5 methadone 5 No 1 BID methadone [facility] mg tablet mg tablet 5 mg Medic al Take 1 Take 1 tablet tablet tablet Take 1 twice a day twice a day tablet by oral by oral twice a route. route. day by oral route. morphine morphine No morphine [facility] via concentrate concentrate concentrat Medical 100 mg/5 mL 100 mg/5 mL e 100 mg/5 (20 mg/mL) (20 mg/mL) mL (20 oral oral mg/mL) solution solution oral 0.25ml 0.25ml solution orally orally 0.25ml every 3 every 3 orally hours as hours as every 3 needed for needed for hours as pain and pain and needed for shortness shortness pain and of breath of breath shortness of breath Probiotic Probiotic No Probiotic [facility] )actobacill )actobacill )actobacil Medical [facility] combination combination combinatio no 4) no [...] oral; at oral; at bedtime bedtime bedtime Santyl 250 Santyl 250 No Santyl 250 [facility] unit/gram unit/gram unit/gram Medical topical topical topical ointment ointment ointment sertraline sertraline No sertraline [facility] 50 mg 50 mg 50 mg Medical tablet Take tablet Take tablet 1 tablet 1 tablet Take 1 every day every day tablet by oral by oral every day route for route for by oral 14 days. 14 days. route for 14 days. tramadol 50 tramadol 50 No tramadol [facility] [...] a pain once day day a day acetaminoph acetaminoph No acetaminop [facility] en 650 mg en 650 mg hen 650 mg Medical rectal rectal rectal suppository suppository suppositor Tylenol Tylenol y Tylenol INSERT 1 INSERT 1 INSERT 1 SUPPOSITORY SUPPOSITORY SUPPOSITOR (650 MG) BY (650 MG) BY Y (650 MG) RECTAL RECTAL BY RECTAL ROUTE EVERY ROUTE EVERY ROUTE 6 HOURS 6 HOURS EVERY 6 NEEDED NEEDED HOURS NEEDED atorvastati atorvastati No atorvastat [facility] n 10 [...] rectal route. route. route. buspirone buspirone No buspirone [facility] 7.5 mg 7.5 mg 7.5 mg Medical tablet Take tablet Take tablet 1 tablet 1 tablet Take 1 every 8 every 8 tablet hours by hours by every 8 oral route oral route hours by for 30 for 30 oral route days. days. for 30 days. Complete Complete No 1 Q1D Complete [facility] via Multivitami Multivitami Multivitam Medical n Adult 50 n Adult 50 in Adult Plus 0.4 Plus 0.4 50 Plus mg-300 mg-300 0.4 mg-300 mcg-250 mcg mcg-250 mcg mcg-250 tablet Take tablet Take mcg tablet 1 tablet 1 tablet Take 1 every day every day tablet by oral by oral every day route. route. by oral route. Depakote ER Depakote ER No Depakote [facility] 500 mg 500 mg ER 500 mg Medica l tablet,exte tablet,exte tablet,ext nded nded ended release release release Take 1 Take 1 Take 1 tablet tablet tablet every 8 every 8 every 8 hours by hours by hours by oral route oral route oral route for 30 for 30 for 30 days. days. days. ferrous ferrous No 1 Q1D ferrous [...] Take 1 Take 1 Take 1 capsule capsule capsule every 12 every 12 every 12 hours by hours by hours by oral route oral route oral route for 30 for 30 for 30 days. days. days. ibuprofen ibuprofen No 1 Q8H ibuprofen [...] water oz of water lactulose lactulose No 30mL BID lactulose [facility] [...] mg 0.5 mg 0.5 mg Medical tablet tablet tablet magnesium magnesium No magnesium [facility] oxide 400 oxide 400 oxide 400 Medical mg (241.3 mg (241.3 mg (241.3 mg mg mg magnesium) magnesium) magnesium) tablet 1 tablet 1 tablet 1 ablet ablet ablet orally orally orally daily as daily as daily as needed for needed for needed for constipatio constipatio constipati n n on [facility] No [facility] (honey) (honey) (honey) Medica l paste 100% paste 100% paste 100% amt: 1 amt: 1 amt: 1 squirt squirt squirt topically topically topically to left to left to left hip/buttock hip/buttock hip/buttoc s wound s wound ks wound everyday everyday everyday until until until healed healed healed methadone 5 methadone 5 No 1 BID methadone [facility] mg tablet mg tablet 5 mg Medic al Take 1 Take 1 tablet tablet tablet Take 1 twice a day twice a day tablet by oral by oral twice a route. route. day by oral route. morphine morphine No morphine [facility] via concentrate concentrate concentrat Medical 100 mg/5 mL 100 mg/5 mL e 100 mg/5 (20 mg/mL) (20 mg/mL) mL (20 oral oral mg/mL) solution solution oral 0.25ml 0.25ml solution orally orally 0.25ml every 3 every 3 orally hours as hours as every 3 needed for needed for hours as pain and pain and needed for shortness shortness pain and of breath of breath shortness of breath Probiotic Probiotic No Probiotic [facility] )actobacill )actobacill )actobacil Medical [facility] combination combination combinatio no 4) no [...] oral; at oral; at bedtime bedtime bedtime Santyl 250 Santyl 250 No Santyl 250 [facility] unit/gram unit/gram unit/gram Medical topical topical topical ointment ointment ointment sertraline sertraline No sertraline [facility] 50 mg 50 mg 50 mg Medical tablet Take tablet Take tablet 1 tablet 1 tablet Take 1 every day every day tablet by oral by oral every day route for route for by oral 14 days. 14 days. route for 14 days. tramadol 50 tramadol 50 No tramadol [facility] [...] a pain once day day a day acetaminoph acetaminoph No acetaminop [facility] en 650 mg en 650 mg hen 650 mg Medical rectal rectal rectal suppository suppository suppositor Tylenol Tylenol y Tylenol INSERT 1 INSERT 1 INSERT 1 SUPPOSITORY SUPPOSITORY SUPPOSITOR (650 MG) BY (650 MG) BY Y (650 MG) RECTAL RECTAL BY RECTAL ROUTE EVERY ROUTE EVERY ROUTE 6 HOURS 6 HOURS EVERY 6 NEEDED NEEDED HOURS NEEDED atorvastati atorvastati No atorvastat [facility] n 10 [...] rectal route. route. route. buspirone buspirone No buspirone [facility] 7.5 mg 7.5 mg 7.5 mg Medical tablet Take tablet Take tablet 1 tablet 1 tablet Take 1 every 8 every 8 tablet hours by hours by every 8 oral route oral route hours by for 30 for 30 oral route days. days. for 30 days. Complete Complete No 1 Q1D Complete [facility] via Multivitami Multivitami Multivitam Medical n Adult 50 n Adult 50 in Adult Plus 0.4 Plus 0.4 50 Plus mg-300 mg-300 0.4 mg-300 mcg-250 mcg mcg-250 mcg mcg-250 tablet Take tablet Take mcg tablet 1 tablet 1 tablet Take 1 every day every day tablet by oral by oral every day route. route. by oral route. Depakote ER Depakote ER No Depakote [facility] 500 mg 500 mg ER 500 mg Medica l tablet,exte tablet,exte tablet,ext nded nded ended release release release Take 1 Take 1 Take 1 tablet tablet tablet every 8 every 8 every 8 hours by hours by hours by oral route oral route oral route for 30 for 30 for 30 days. days. days. ferrous ferrous No 1 Q1D ferrous [...] Take 1 Take 1 Take 1 capsule capsule capsule every 12 every 12 every 12 hours by hours by hours by oral route oral route oral route for 30 for 30 for 30 days. days. days. ibuprofen ibuprofen No 1 Q8H ibuprofen [...] water oz of water lactulose lactulose No 30mL BID lactulose [facility] [...] 55mmHg and/or DBP< 55mmHg lorazepam lorazepam No 1 Q12H lorazepam [facility] 0.5 mg 0.5 mg 0.5 mg Medical tablet Take tablet Take tablet 1 tablet 1 tablet Take 1 every 12 every 12 tablet hours by hours by every 12 oral route oral route hours by as directed as directed oral route for 14 for 14 as days. days. directed for 14 days. magnesium magnesium No magnesium [facility] oxide 400 oxide 400 oxide 400 Medical mg (241.3 mg (241.3 mg (241.3 mg mg mg magnesium) magnesium) magnesium) tablet 1 tablet 1 tablet 1 ablet ablet ablet orally orally orally daily as daily as daily as needed for needed for needed for constipatio constipatio constipati n n on MediHoney MediHoney No Mediney [facility] (honey) (honey) (honey) Medica l paste 100% paste 100% paste 100% amt: 1 amt: 1 amt: 1 squirt squirt squirt topically topically topically to left to left to left hip/buttock hip/buttock hip/buttoc s wound s wound ks wound everyday everyday everyday until until until healed healed healed methadone 5 methadone 5 No 1 BID methadone [facility] mg tablet mg tablet 5 mg Medic al Take 1 Take 1 tablet tablet tablet Take 1 twice a day twice a day tablet by oral by oral twice a route. route. day by oral route. Probiotic Probiotic No Probiotic [facility] )actobacill )actobacill )actobacil [facility] combination combination combinatio no 4) no 4) [...] oral; at oral; at bedtime bedtime bedtime Santyl 250 Santyl 250 No Santyl 250 [facility] unit/gram unit/gram unit/gram Medical topical topical topical ointment ointment ointment sertraline sertraline No sertraline [facility] 50 mg 50 mg 50 mg Medical tablet Take tablet Take tablet 1 tablet 1 tablet Take 1 every day every day tablet by oral by oral every day route for route for by oral 14 days. 14 days. route for 14 days. tramadol 50 tramadol 50 No tramadol [facility] [...] a pain once day day a day acetaminoph acetaminoph No acetaminop [facility] en 650 mg en 650 mg hen 650 mg Medical rectal rectal rectal suppository suppository suppositor Tylenol Tylenol y Tylenol INSERT 1 INSERT 1 INSERT 1 SUPPOSITORY SUPPOSITORY SUPPOSITOR (650 MG) BY (650 MG) BY Y (650 MG) RECTAL RECTAL BY RECTAL ROUTE EVERY ROUTE EVERY ROUTE 6 HOURS 6 HOURS EVERY 6 NEEDED NEEDED HOURS NEEDED albuterol albuterol No 3mL Q6H albuterol [facility] [...] rectal route. route. route. buspirone buspirone No buspirone [facility] 7.5 mg 7.5 mg 7.5 mg Medical tablet Take tablet Take tablet 1 tablet 1 tablet Take 1 every 8 every 8 tablet hours by hours by every 8 oral route oral route hours by for 30 for 30 oral route days. days. for 30 days. Complete Complete No 1 Q1D Complete [facility] via Multivitami Multivitami Multivitam Medical n Adult 50 n Adult 50 in Adult Plus 0.4 Plus 0.4 50 Plus mg-300 mg-300 0.4 mg-300 mcg-250 mcg mcg-250 mcg mcg-250 tablet Take tablet Take mcg tablet 1 tablet 1 tablet Take 1 every day every day tablet by oral by oral every day route. route. by oral route. Depakote ER Depakote ER No Depakote [facility] 500 mg 500 mg ER 500 mg Medica l tablet,exte tablet,exte tablet,ext nded nded ended release release release Take 1 Take 1 Take 1 tablet tablet tablet every 8 every 8 every 8 hours by hours by hours by oral route oral route oral route for 30 for 30 for 30 days. days. days. ferrous ferrous No 1 Q1D ferrous [...] Take 1 Take 1 Take 1 capsule capsule capsule every 12 every 12 every 12 hours by hours by hours by oral route oral route oral route for 30 for 30 for 30 days. days. days. ibuprofen ibuprofen No 1 Q8H ibuprofen [...] water oz of water lactulose lactulose No 30mL BID lactulose [facility] [...] 55mmHg and/or DBP< 55mmHg lorazepam lorazepam No 1 Q12H lorazepam [facility] 0.5 mg 0.5 mg 0.5 mg Medical tablet Take tablet Take tablet 1 tablet 1 tablet Take 1 every 12 every 12 tablet hours by hours by every 12 oral route oral route hours by as directed as directed oral route for 14 for 14 as days. days. directed for 14 days. magnesium magnesium No magnesium [facility] oxide 400 oxide 400 oxide 400 Medical mg (241.3 mg (241.3 mg (241.3 mg mg mg magnesium) magnesium) magnesium) tablet 1 tablet 1 tablet 1 ablet ablet ablet orally orally orally daily as daily as daily as needed for needed for needed for constipatio constipatio constipati n n on methadone 5 methadone 5 No 1 BID methadone [facility] mg tablet mg tablet 5 mg Medic al Take 1 Take 1 tablet tablet tablet Take 1 twice a day twice a day tablet by oral by oral twice a route. route. day by oral route. Probiotic Probiotic No Probiotic [facility] )actobacill )actobacill )actobacil Medical [facility] combination combination combinatio no 4) no [...] bedtime bedtime sertraline sertraline No sertraline [facility] 50 mg 50 mg 50 mg Medical tablet Take tablet Take tablet 1 tablet 1 tablet Take 1 every day every day tablet by oral by oral every day route for route for by oral 14 days. 14 days. route for 14 days. tramadol 50 tramadol 50 No tramadol [facility] [...] a pain once day day a day acetaminoph acetaminoph No acetaminop [facility] en 650 mg en 650 mg hen 650 mg Medical rectal rectal rectal suppository suppository suppositor Tylenol Tylenol y Tylenol INSERT 1 INSERT 1 INSERT 1 SUPPOSITORY SUPPOSITORY SUPPOSITOR (650 MG) BY (650 MG) BY Y (650 MG) RECTAL RECTAL BY RECTAL ROUTE EVERY ROUTE EVERY ROUTE 6 HOURS 6 HOURS EVERY 6 NEEDED NEEDED HOURS NEEDED albuterol albuterol No 3mL Q6H albuterol [facility] [...] rectal route. route. route. buspirone buspirone No buspirone [facility] 7.5 mg 7.5 mg 7.5 mg Medical tablet Take tablet Take tablet 1 tablet 1 tablet Take 1 every 8 every 8 tablet hours by hours by every 8 oral route oral route hours by for 30 for 30 oral route days. days. for 30 days. Complete Complete No 1 Q1D Complete [facility] via Multivitami Multivitami Multivitam Medical n Adult 50 n Adult 50 in Adult Plus 0.4 Plus 0.4 50 Plus mg-300 mg-300 0.4 mg-300 mcg-250 mcg mcg-250 mcg mcg-250 tablet Take tablet Take mcg tablet 1 tablet 1 tablet Take 1 every day every day tablet by oral by oral every day route. route. by oral route. Depakote ER Depakote ER No Depakote [facility] 500 mg 500 mg ER 500 mg Medica l tablet,exte tablet,exte tablet,ext nded nded ended release release release Take 1 Take 1 Take 1 tablet tablet tablet every 8 every 8 every 8 hours by hours by hours by oral route oral route oral route for 30 for 30 for 30 days. days. days. ferrous ferrous No 1 Q1D ferrous [...] Take 1 Take 1 Take 1 capsule capsule capsule every 12 every 12 every 12 hours by hours by hours by oral route oral route oral route for 30 for 30 for 30 days. days. days. ibuprofen ibuprofen No 1 Q8H ibuprofen [...] water oz of water lactulose lactulose No 30mL BID lactulose [facility] [...] 55mmHg and/or DBP< 55mmHg lorazepam lorazepam No 1 Q12H lorazepam [facility] 0.5 mg 0.5 mg 0.5 mg Medical tablet Take tablet Take tablet 1 tablet 1 tablet Take 1 every 12 every 12 tablet hours by hours by every 12 oral route oral route hours by as directed as directed oral route for 14 for 14 as days. days. directed for 14 days. magnesium magnesium No magnesium [facility] oxide 400 oxide 400 oxide 400 Medical mg (241.3 mg (241.3 mg (241.3 mg mg mg magnesium) magnesium) magnesium) tablet 1 tablet 1 tablet 1 ablet ablet ablet orally orally orally daily as daily as daily as needed for needed for needed for constipatio constipatio constipati n n on methadone 5 methadone 5 No 1 BID methadone [facility] mg tablet mg tablet 5 mg Medic al Take 1 Take 1 tablet tablet tablet Take 1 twice a day twice a day tablet by oral by oral twice a route. route. day by oral route. Probiotic Probiotic No Probiotic [facility] )actobacill )actobacill )actobacil [facility] combination combination combinatio no 4) no 4) [...] bedtime bedtime sertraline sertraline No sertraline [facility] 50 mg 50 mg 50 mg Medical tablet Take tablet Take tablet 1 tablet 1 tablet Take 1 every day every day tablet by oral by oral every day route for route for by oral 14 days. 14 days. route for 14 days. tramadol 50 tramadol 50 No tramadol [facility] [...] a pain once day day a day acetaminoph acetaminoph No 1 Q8H acetaminop [facility] en 300 en 300 hen 300 Medical mg-codeine mg-codeine mg-codeine 60 mg 60 mg 60 mg tablet Take tablet Take tablet 1 tablet 1 tablet Take 1 every 8 every 8 tablet hours by hours by every 8 oral route oral route hours by for 7 days. for 7 days. oral route for 7 days. acetaminoph acetaminoph No acetaminop [facility] en 650 mg en 650 mg hen 650 mg Medical rectal rectal rectal suppository suppository suppositor Tylenol Tylenol y Tylenol INSERT 1 INSERT 1 INSERT 1 SUPPOSITORY SUPPOSITORY SUPPOSITOR (650 MG) BY (650 MG) BY Y (650 MG) RECTAL RECTAL BY RECTAL ROUTE EVERY ROUTE EVERY ROUTE 6 HOURS 6 HOURS EVERY 6 NEEDED NEEDED HOURS NEEDED albuterol albuterol No 3mL Q6H albuterol [facility] [...] rectal route. route. route. buspirone buspirone No buspirone [facility] 7.5 mg 7.5 mg 7.5 mg Medical tablet Take tablet Take tablet 1 tablet 1 tablet Take 1 every 8 every 8 tablet hours by hours by every 8 oral route oral route hours by for 30 for 30 oral route days. days. for 30 days. Complete Complete No 1 Q1D Complete [facility] via Multivitami Multivitami Multivitam Medical n Adult 50 n Adult 50 in Adult Plus 0.4 Plus 0.4 50 Plus mg-300 mg-300 0.4 mg-300 mcg-250 mcg mcg-250 mcg mcg-250 tablet Take tablet Take mcg tablet 1 tablet 1 tablet Take 1 every day every day tablet by oral by oral every day route. route. by oral route. Depakote ER Depakote ER No Depakote [facility] 500 mg 500 mg ER 500 mg Medica l tablet,exte tablet,exte tablet,ext nded nded ended release release release Take 1 Take 1 Take 1 tablet tablet tablet every 8 every 8 every 8 hours by hours by hours by oral route oral route oral route for 30 for 30 for 30 days. days. days. ferrous ferrous No 1 Q1D ferrous [...] Take 1 Take 1 Take 1 capsule capsule capsule every 12 every 12 every 12 hours by hours by hours by oral route oral route oral route for 30 for 30 for 30 days. days. days. ibuprofen ibuprofen No 1 Q8H ibuprofen [...] water oz of water lactulose lactulose No 30mL BID lactulose [facility] [...] 55mmHg and/or DBP< 55mmHg lorazepam lorazepam No 1 Q12H lorazepam [facility] 0.5 mg 0.5 mg 0.5 mg Medical tablet Take tablet Take tablet 1 tablet 1 tablet Take 1 every 12 every 12 tablet hours by hours by every 12 oral route oral route hours by as directed as directed oral route for 14 for 14 as days. days. directed for 14 days. magnesium magnesium No magnesium [facility] oxide 400 oxide 400 oxide 400 Medical mg (241.3 mg (241.3 mg (241.3 mg mg mg magnesium) magnesium) magnesium) tablet 1 tablet 1 tablet 1 ablet ablet ablet orally orally orally daily as daily as daily as needed for needed for needed for constipatio constipatio constipati n n on Probiotic Probiotic No Probiotic [facility] )actobacill )actobacill )actobacil Medical [facility] combination combination combinatio no 4) no [...] bedtime bedtime sertraline sertraline No sertraline [facility] 50 mg 50 mg 50 mg Medical tablet Take tablet Take tablet 1 tablet 1 tablet Take 1 every day every day tablet by oral by oral every day route for route for by oral 14 days. 14 days. route for 14 days. tramadol 50 tramadol 50 No tramadol [facility] [...] a pain once day day a day acetaminoph acetaminoph No acetaminop [facility] en 300 en 300 hen 300 Medical mg-codeine mg-codeine mg-codeine 60 mg 60 mg 60 mg tablet Take tablet Take tablet 1 tablet 1 tablet Take 1 every 8 every 8 tablet hours by hours by every 8 oral route oral route hours by for 30 for 30 oral route days. days. for 30 days. acetaminoph acetaminoph No acetaminop [facility] en 650 mg en 650 mg hen 650 mg Medical rectal rectal rectal suppository suppository suppositor Tylenol Tylenol y Tylenol INSERT 1 INSERT 1 INSERT 1 SUPPOSITORY SUPPOSITORY SUPPOSITOR (650 MG) BY (650 MG) BY Y (650 MG) RECTAL RECTAL BY RECTAL ROUTE EVERY ROUTE EVERY ROUTE 6 HOURS 6 HOURS EVERY 6 NEEDED NEEDED HOURS NEEDED albuterol albuterol No 3mL Q6H albuterol [facility] [...] rectal route. route. route. buspirone buspirone No buspirone [facility] 7.5 mg 7.5 mg 7.5 mg Medical tablet Take tablet Take tablet 1 tablet 1 tablet Take 1 every 8 every 8 tablet hours by hours by every 8 oral route oral route hours by for 30 for 30 oral route days. days. for 30 days. Complete Complete No 1 Q1D Complete [facility] via Multivitami Multivitami Multivitam Medical n Adult 50 n Adult 50 in Adult Plus 0.4 Plus 0.4 50 Plus mg-300 mg-300 0.4 mg-300 mcg-250 mcg mcg-250 mcg mcg-250 tablet Take tablet Take mcg tablet 1 tablet 1 tablet Take 1 every day every day tablet by oral by oral every day route. route. by oral route. Depakote ER Depakote ER No Depakote [facility] 500 mg 500 mg ER 500 mg Medica l tablet,exte tablet,exte tablet,ext nded nded ended release release release Take 1 Take 1 Take 1 tablet tablet tablet every 8 every 8 every 8 hours by hours by hours by oral route oral route oral route for 30 for 30 for 30 days. days. days. divalproex divalproex No divalproex [facility] 500 mg 500 mg 500 mg Medical tablet,jeane tablet,jeane tablet,del yed release yed release ayed release ferrous ferrous No 1 Q1D ferrous [facility] [...] Take 1 Take 1 Take 1 capsule capsule capsule every 12 every 12 every 12 hours by hours by hours by oral route oral route oral route for 30 for 30 for 30 days. days. days. ibuprofen ibuprofen No 1 Q8H ibuprofen [...] water oz of water lactulose lactulose No 30mL BID lactulose [facility] [...] 55mmHg and/or DBP< 55mmHg lorazepam lorazepam No 1 Q12H lorazepam [facility] 0.5 mg 0.5 mg 0.5 mg Medical tablet Take tablet Take tablet 1 tablet 1 tablet Take 1 every 12 every 12 tablet hours by hours by every 12 oral route oral route hours by as directed as directed oral route for 14 for 14 as days. days. directed for 14 days. magnesium magnesium No magnesium [facility] oxide 400 oxide 400 oxide 400 Medical mg (241.3 mg (241.3 mg (241.3 mg mg mg magnesium) magnesium) magnesium) tablet 1 tablet 1 tablet 1 ablet ablet ablet orally orally orally daily as daily as daily as needed for needed for needed for constipatio constipatio constipati n n on Probiotic Probiotic No Probiotic [facility] )actobacill )actobacill )actobacil Medical [facility] combination combination combinatio no 4) no [...] bedtime bedtime sertraline sertraline No sertraline [facility] 50 mg 50 mg 50 mg Medical tablet Take tablet Take tablet 1 tablet 1 tablet Take 1 every day every day tablet by oral by oral every day route for route for by oral 14 days. 14 days. route for 14 days. tramadol 50 tramadol 50 No tramadol [facility] [...] a pain once day day a day acetaminoph acetaminoph No acetaminop [facility] en 300 en 300 hen 300 Medical mg-codeine mg-codeine mg-codeine 60 mg 60 mg 60 mg tablet Take tablet Take tablet 1 tablet 1 tablet Take 1 every 8 every 8 tablet hours by hours by every 8 oral route oral route hours by for 30 for 30 oral route days. days. for 30 days. acetaminoph acetaminoph No acetaminop [facility] en 650 mg en 650 mg hen 650 mg Medical rectal rectal rectal suppository suppository suppositor Tylenol Tylenol y Tylenol INSERT 1 INSERT 1 INSERT 1 SUPPOSITORY SUPPOSITORY SUPPOSITOR (650 MG) BY (650 MG) BY Y (650 MG) RECTAL RECTAL BY RECTAL ROUTE EVERY ROUTE EVERY ROUTE 6 HOURS 6 HOURS EVERY 6 NEEDED NEEDED HOURS NEEDED albuterol albuterol No 3mL Q6H albuterol [facility] [...] rectal route. route. route. buspirone buspirone No buspirone [facility] 7.5 mg 7.5 mg 7.5 mg Medical tablet Take tablet Take tablet 1 tablet 1 tablet Take 1 every 8 every 8 tablet hours by hours by every 8 oral route oral route hours by for 30 for 30 oral route days. days. for 30 days. Complete Complete No 1 Q1D Complete [facility] [...] route. by oral route. divalproex divalproex No 1 Q8H divalproex [facility] 500 mg 500 mg 500 [...] route. by oral route. gabapentin gabapentin No 1capsul TID gabapentin [facility] 300 mg 300 mg e(s) 300 mg Medical capsule capsule capsule Take [...] water oz of water lactulose lactulose No 30mL BID lactulose [facility] [...] 55mmHg and/or DBP< 55mmHg lorazepam lorazepam No 1 Q12H lorazepam [facility] 0.5 mg 0.5 mg 0.5 mg Medical tablet Take tablet Take tablet 1 tablet 1 tablet Take 1 every 12 every 12 tablet hours by hours by every 12 oral route oral route hours by as directed as directed oral route for 14 for 14 as days. days. directed for 14 days. magnesium magnesium No magnesium [facility] oxide 400 oxide 400 oxide 400 Medical mg (241.3 mg (241.3 mg (241.3 mg mg mg magnesium) magnesium) magnesium) tablet 1 tablet 1 tablet 1 ablet ablet ablet orally orally orally daily as daily as daily as needed for needed for needed for constipatio constipatio constipati n n on Probiotic Probiotic No Probiotic [facility] )actobacill )actobacill )actobacil Medical [facility] combination combination combinatio no 4) no [...] bedtime bedtime sertraline sertraline No sertraline [facility] 50 mg 50 mg 50 mg Medical tablet Take tablet Take tablet 1 tablet 1 tablet Take 1 every day every day tablet by oral by oral every day route for route for by oral 14 days. 14 days. route for 14 days. tramadol 50 tramadol 50 No tramadol [facility] [...] Yes Na [place] 1 tablet Comm on [facility] Lisinopril Lisinopril Yes Na [place] 1 tablet Common [facility] Lipitor Lipitor Yes Na [place] 1 tablet Co mmon [facility] acetaminoph acetaminoph No acetaminop [facility] en 300 en 300 hen [...] a route. route. day by oral route. Complete Complete No 1 Q1D Complete [facility] [...] water oz of water lactulose lactulose No 30mL BID lactulose [facility] [...] No Probiotic [facility] )actobacill )actobacill )actobacil Medical [facility] combination combination combinatio no 4) no [...] at bedtime bedtime bedtime sertraline sertraline No 1 Q1D sertraline [facility] 100 mg 100 mg 100 [...] a pain once day day a day acetaminoph acetaminoph No acetaminop [facility] en 300 en 300 hen [...] rectal route. route. route. buspirone buspirone No buspirone [facility] 15 mg 15 mg 15 mg Medical tablet Take tablet Take tablet 1 tablet 3 1 tablet 3 Take 1 times a day times a day tablet 3 by oral by oral times a route. route. day by oral route. Complete Complete No 1 Q1D Complete [facility] [...] every day route. route. by oral route. fluticasone fluticasone No 1spray( Q1D fluticason [facility] propionate propionate s) e Med ical 50 50 propionate mcg/actuati mcg/actuati 50 on nasal on nasal mcg/actuat spray,suspe spray,suspe ion nasal nsion [facility] nsion [place] spray,susp 1 spray 1 spray ension every day every day [place] 1 by nasal by nasal spray route. route. every day by nasal route. gabapentin gabapentin No gabapentin [facility] 300 [...] Probiotic No Probiotic [facility] )actobacill )actobacill )actobacil [facility] combination combination combinatio no 4) no [...] a day quetiapine quetiapine No quetiapine [facility] 400 mg 400 mg 400 mg Medical tablet Take tablet Take tablet 1 tablet 1 tablet Take 1 twice a day twice a day tablet by oral by oral twice a route. route. day by oral route. sertraline sertraline No sertraline [facility] 100 mg [...] a pain once day day a day acetaminoph acetaminoph No acetaminop [facility] en 300 en 300 hen [...] rectal route. route. route. buspirone buspirone No buspirone [facility] 15 mg 15 mg 15 mg Medical tablet Take tablet Take tablet 1 tablet 3 1 tablet 3 Take 1 times a day times a day tablet 3 by oral by oral times a route. route. day by oral route. Complete Complete No 1 Q1D Complete [facility] [...] every day route. route. by oral route. fluticasone fluticasone No 1spray( Q1D fluticason [facility] propionate propionate s) e Med ical 50 50 propionate mcg/actuati mcg/actuati 50 on nasal on nasal mcg/actuat spray,suspe spray,suspe ion nasal nsion [facility] nsion [facility] spray,susp 1 spray 1 spray ension every day every day [place] 1 by nasal by nasal spray route. route. every day by nasal route. gabapentin gabapentin No gabapentin [facility] 300 [...] No Probiotic [facility] )actobacill )actobacill )actobacil Medical [facility] combination combination combinatio no 4) no [...] a day quetiapine quetiapine No quetiapine [facility] 400 mg 400 mg 400 mg Medical tablet Take tablet Take tablet 1 tablet 1 tablet Take 1 twice a day twice a day tablet by oral by oral twice a route. route. day by oral route. sertraline sertraline No sertraline [facility] 100 mg [...] a pain once day day a day acetaminoph acetaminoph No acetaminop [facility] en 300 en 300 hen [...] rectal route. route. route. buspirone buspirone No buspirone [facility] 15 mg 15 mg 15 mg Medical tablet Take tablet Take tablet 1 tablet 3 1 tablet 3 Take 1 times a day times a day tablet 3 by oral by oral times a route. route. day by oral route. Complete Complete No 1 Q1D Complete [facility] [...] every day route. route. by oral route. fluticasone fluticasone No 1spray( Q1D fluticason [facility] propionate propionate s) e Med ical 50 50 propionate mcg/actuati mcg/actuati 50 on nasal on nasal mcg/actuat spray,suspe spray,suspe ion nasal nsion [facility] nsion [facility] spray,susp 1 spray 1 spray ension every day every day [facility] 1 by nasal by nasal spray route. route. every day by nasal route. gabapentin gabapentin No 2capsul Q8H gabapentin [facility] 300 mg 300 mg e(s) 300 mg Medical capsule capsule capsule Take 2 Take 2 Take 2 capsules capsules capsules every 8 every 8 every 8 hours by hours by hours by oral route oral route oral route for 30 for 30 for 30 days. days. days. ibuprofen ibuprofen No 1 Q8H ibuprofen [...] water oz of water lactulose lactulose No 30mL BID lactulose [facility] [...] No Probiotic [facility] )actobacill )actobacill )actobacil Medical [facility] combination combination combinatio no 4) no [...] a day quetiapine quetiapine No quetiapine [facility] 400 mg 400 mg 400 mg Medical tablet Take tablet Take tablet 1 tablet 1 tablet Take 1 twice a day twice a day tablet by oral by oral twice a route. route. day by oral route. sertraline sertraline No sertraline [facility] 100 mg 100 mg 100 mg Medical tablet Take tablet Take tablet 1 tablet 1 tablet Take 1 every day every day tablet by oral by oral every day route. route. by oral route. Tums 200 mg Tums 200 mg No [...] a pain once day day a day acetaminoph acetaminoph No acetaminop [facility] en 300 en 300 hen [...] rectal route. route. route. buspirone buspirone No buspirone [facility] 15 mg 15 mg 15 mg Medical tablet Take tablet Take tablet 1 tablet 3 1 tablet 3 Take 1 times a day times a day tablet 3 by oral by oral times a route. route. day by oral route. Complete Complete No 1 Q1D Complete [facility] [...] every day route. route. by oral route. fluticasone fluticasone No 1spray( Q1D fluticason [facility] propionate propionate s) e Med ical 50 50 propionate mcg/actuati mcg/actuati 50 on nasal on nasal mcg/actuat spray,suspe spray,suspe ion nasal nsion [facility] nsion [facility] spray,susp 1 spray 1 spray ension every day every day [facility] 1 by nasal by nasal spray route. route. every day by nasal route. gabapentin gabapentin No 2capsul Q8H gabapentin [facility] 300 mg 300 mg e(s) 300 mg Medical capsule capsule capsule Take 2 Take 2 Take 2 capsules capsules capsules every 8 every 8 every 8 hours by hours by hours by oral route oral route oral route for 30 for 30 for 30 days. days. days. ibuprofen ibuprofen No 1 Q8H ibuprofen [...] water oz of water lactulose lactulose No 30mL BID lactulose [facility] [...] No Probiotic [facility] )actobacill )actobacill )actobacil Medical [facility] combination combination combinatio no 4) no [...] a day quetiapine quetiapine No quetiapine [facility] 400 mg 400 mg 400 mg Medical tablet Take tablet Take tablet 1 tablet 1 tablet Take 1 twice a day twice a day tablet by oral by oral twice a route. route. day by oral route. sertraline sertraline No sertraline [facility] 100 mg 100 mg 100 mg Medical tablet Take tablet Take tablet 1 tablet 1 tablet Take 1 every day every day tablet by oral by oral every day route. route. by oral route. Tums 200 mg Tums 200 mg No [...] a pain once day day a day acetaminoph acetaminoph No 1 Q8H acetaminop [facility] [...] rectal route. route. route. buspirone buspirone No buspirone [facility] 15 mg 15 mg 15 mg Medical tablet Take tablet Take tablet 1 tablet 3 1 tablet 3 Take 1 times a day times a day tablet 3 by oral by oral times a route. route. day by oral route. Complete Complete No 1 Q1D Complete [facility] [...] every day route. route. by oral route. fluticasone fluticasone No 1spray( Q1D fluticason [facility] propionate propionate s) e Med ical 50 50 propionate mcg/actuati mcg/actuati 50 on nasal on nasal mcg/actuat spray,suspe spray,suspe ion nasal nsion [facility] nsion [facility] spray,susp 1 spray 1 spray ension every day every day [facility] 1 by nasal by nasal spray route. route. every day by nasal route. gabapentin gabapentin No 2capsul Q8H gabapentin [facility] 300 mg 300 mg e(s) 300 mg Medical capsule capsule capsule Take 2 Take 2 Take 2 capsules capsules capsules every 8 every 8 every 8 hours by hours by hours by oral route oral route oral route for 30 for 30 for 30 days. days. days. ibuprofen ibuprofen No 1 Q8H ibuprofen [...] water oz of water lactulose lactulose No 30mL BID lactulose [facility] [...] 55mmHg and/or DBP< 55mmHg lorazepam lorazepam No 1 Q12H lorazepam [facility] 0.5 mg 0.5 mg 0.5 [...] unit/gram topical topical topical cream cream cream pregabalin pregabalin No 1capsul TID pregabalin [facility] 75 mg 75 mg e(s) 75 mg Medical capsule capsule capsule Take 1 Take 1 Take 1 capsule 3 capsule 3 capsule 3 times a day times a day times a by oral by oral day by route for route for oral route 30 days. 30 days. for 30 days. Probiotic Probiotic No Probiotic [facility] )actobacill )actobacill )actobacil Medical [facility] combination combination combinatio no 4) no [...] a day quetiapine quetiapine No quetiapine [facility] 400 mg 400 mg 400 mg Medical tablet Take tablet Take tablet 1 tablet 1 tablet Take 1 twice a day twice a day tablet by oral by oral twice a route. route. day by oral route. sertraline sertraline No sertraline [facility] 100 mg 100 mg 100 mg Medical tablet Take tablet Take tablet 1 tablet 1 tablet Take 1 every day every day tablet by oral by oral every day route. route. by oral route. Tums 200 mg Tums 200 mg No [...] a pain once day day a day acetaminoph acetaminoph No 1 Q8H acetaminop [facility] [...] rectal route. route. route. buspirone buspirone No buspirone [facility] 15 mg 15 mg 15 mg Medical tablet Take tablet Take tablet 1 tablet 3 1 tablet 3 Take 1 times a day times a day tablet 3 by oral by oral times a route. route. day by oral route. Complete Complete No 1 Q1D Complete [facility] [...] every day route. route. by oral route. fluticasone fluticasone No 1spray( Q1D fluticason [facility] propionate propionate s) e Med ical 50 50 propionate mcg/actuati mcg/actuati 50 on nasal on nasal mcg/actuat spray,suspe spray,suspe ion nasal nsion [facility] nsion [facility] spray,susp 1 spray 1 spray ension every day every day [place] 1 by nasal by nasal spray route. route. every day by nasal route. gabapentin gabapentin No 2capsul Q8H gabapentin [facility] 300 mg 300 mg e(s) 300 mg Medical capsule capsule capsule Take 2 Take 2 Take 2 capsules capsules capsules every 8 every 8 every 8 hours by hours by hours by oral route oral route oral route for 30 for 30 for 30 days. days. days. ibuprofen ibuprofen No 1 Q8H ibuprofen [...] water oz of water lactulose lactulose No 30mL BID lactulose [facility] [...] 55mmHg and/or DBP< 55mmHg lorazepam lorazepam No 1 Q12H lorazepam [facility] 0.5 mg 0.5 mg 0.5 [...] unit/gram topical topical topical cream cream cream pregabalin pregabalin No 1capsul TID pregabalin [facility] 75 mg 75 mg e(s) 75 mg Medical capsule capsule capsule Take 1 Take 1 Take 1 capsule 3 capsule 3 capsule 3 times a day times a day times a by oral by oral day by route for route for oral route 30 days. 30 days. for 30 days. Probiotic Probiotic No Probiotic [facility] )actobacill )actobacill )actobacil Medical [facility] combination combination combinatio no 4) no [...] a day quetiapine quetiapine No quetiapine [facility] 400 mg 400 mg 400 mg Medical tablet Take tablet Take tablet 1 tablet 1 tablet Take 1 twice a day twice a day tablet by oral by oral twice a route. route. day by oral route. sertraline sertraline No sertraline [facility] 100 mg 100 mg 100 mg Medical tablet Take tablet Take tablet 1 tablet 1 tablet Take 1 every day every day tablet by oral by oral every day route. route. by oral route. Tums 200 mg Tums 200 mg No [...] a pain once day day a day acetaminoph acetaminoph No 1 Q8H acetaminop [facility] [...] No Probiotic [facility] )actobacill )actobacill )actobacil Medical [facility] combination combination combinatio no 4) no [...] a pain once day day a day acetaminoph acetaminoph No 1 Q8H acetaminop [facility] [...] 55mmHg and/or DBP< 55mmHg lorazepam lorazepam No 1 Q12H lorazepam [facility] 0.5 mg 0.5 mg 0.5 [...] Probiotic No Probiotic [facility] )actobacill )actobacill )actobacil [facility] combination combination combinatio no 4) no [...] twice a day a day a day Seroquel Seroquel No 1 BID Seroquel [facility] via 400 mg 400 mg 400 mg Medical tablet Take tablet Take tablet 1 tablet 1 tablet Take 1 twice a day twice a day tablet by oral by oral twice a route. route. day by oral route. sertraline sertraline No sertraline [facility] 100 mg [...] a pain once day day a day acetaminoph acetaminoph No acetaminop [facility] en 650 mg en 650 mg hen 650 mg Medical rectal rectal rectal suppository suppository suppositor Tylenol Tylenol y Tylenol INSERT 1 INSERT 1 INSERT 1 SUPPOSITORY SUPPOSITORY SUPPOSITOR (650 MG) BY (650 MG) BY Y (650 MG) RECTAL RECTAL BY RECTAL ROUTE EVERY ROUTE EVERY ROUTE 6 HOURS 6 HOURS EVERY 6 NEEDED NEEDED HOURS NEEDED atorvastati atorvastati No 1 Q1D [facility]at [facility] 10 mg n 10 mg in 10 mg Medic al tablet Take tablet Take tablet 1 tablet 1 tablet Take 1 every day every day tablet by oral by oral every day route. route. by oral route. bisacodyl bisacodyl No bisacodyl [facility] 10 mg 10 mg 10 mg Medical rectal rectal rectal suppository suppository suppositor 1 rectal 1 rectal y 1 rectal suppository suppository suppositor daily prn daily prn y daily consipation consipation prn consipatio n buspirone buspirone No 1 TID buspirone [facility] 7.5 mg 7.5 mg 7.5 mg Medical tablet Take tablet Take tablet 1 tablet 3 1 tablet 3 Take 1 times a day times a day tablet 3 by oral by oral times a route for route for day by 30 days. 30 days. oral route for 30 days. Complete Complete No 1 Q1D Complete [facility] via [facility] n Adult 50 n Adult 50 in Adult Plus 0.4 Plus 0.4 50 Plus mg-300 mg-300 0.4 mg-300 mcg-250 mcg mcg-250 mcg mcg-250 tablet Take tablet Take mcg tablet 1 tablet 1 tablet Take 1 every day every day tablet by oral by oral every day route. route. by oral route. Depakote ER Depakote ER No 1 TID Depakote [facility] 500 mg 500 mg ER 500 mg Medica l tablet,exte tablet,exte tablet,ext nded nded ended release release release Take 1 Take 1 Take 1 tablet 3 tablet 3 tablet 3 times a day times a day times a by oral by oral day by route. route. oral route. ferrous ferrous No ferrous [facility] sulfate sulfate sulfate Medica l delayed delayed delayed release release release (DR/EC) (DR/EC) (DR/EC) 325mg (65 325mg (65 325mg (65 mg iron) mg iron) mg iron) amt; 1 tab; amt; 1 tab; amt; 1 oral once a oral once a tab; oral day day once a day Fleet Enema Fleet Enema No Fleet [facility] one daily one daily Enema one Medical prn prn daily prn constipatio constipatio constipati n full:amt n full:amt on 1: rectal 1: rectal full:amt 1: rectal Immunizations Ordered Immunization Filled Immunization Date Status Commen ts Source Name Name influenza, influenza, 2022-07-03 Completed [facility] inject[facility], injectable, 00:00:00 Medical quadrivalent quadrivalent influenza, influenza, 2022-07-03 Completed [facility], injectable, 00:00:00 Medical quadrivalent quadrivalent influenza, influenza, 2022-07-03 Completed [facility] inject[facility], injectable, 00:00:00 Medical quadrivalent quadrivalent influenza, influenza, 2022-07-03 Completed [facility] inject[facility], injectable, 00:00:00 Medical quadrivalent quadrivalent influenza, influenza, 2022-07-03 Completed [facility], injectable, 00:00:00 Medical quadrivalent quadrivalent influenza, influenza, 2022-07-03 Completed [facility], injectable, 00:00:00 Medical quadrivalent quadrivalent influenza, influenza, 2022-07-03 Completed [facility], injectable, 00:00:00 Medical quadrivalent quadrivalent COVID-19 (SARS-COV-2) COVID-19 (SARS-COV-2) 2021-09-08 Completed [facility] vaccine, unspecified vaccine, unspecified 00:00:00 Medical COVID-19 (SARS-COV-2) COVID-19 (SARS-COV-2) 2021-09-08 Completed [facility], unspecified vaccine, unspecified 00:00:00 Medical COVID-19 (SARS-COV-2) COVID-19 (SARS-COV-2) 2021-09-08 Completed [facility], unspecified vaccine, unspecified 00:00:00 Medical COVID-19 (SARS-COV-2) COVID-19 (SARS-COV-2) 2021-09-08 Completed [facility], unspecified vaccine, unspecified 00:00:00 Medical COVID-19 (SARS-COV-2) COVID-19 (SARS-COV-2) 2021-09-08 Completed [facility], unspecified vaccine, unspecified 00:00:00 Medical COVID-19 (SARS-COV-2) COVID-19 (SARS-COV-2) 2021-09-08 Completed [facility], unspecified vaccine, unspecified 00:00:00 Medical COVID-19 (SARS-COV-2) COVID-19 (SARS-COV-2) 2021-09-08 Completed [facility], unspecified vaccine, unspecified 00:00:00 Medical COVID-19 (SARS-COV-2) COVID-19 (SARS-COV-2) 2021-09-08 Completed [facility], unspecified vaccine, unspecified 00:00:00 Medical COVID-19 (SARS-COV-2) COVID-19 (SARS-COV-2) 2021-09-08 Completed [facility], unspecified vaccine, unspecified 00:00:00 Medical COVID-19 (SARS-COV-2) COVID-19 (SARS-COV-2) 2021-09-08 Completed [facility], unspecified vaccine, unspecified 00:00:00 Medical COVID-19 (SARS-COV-2) COVID-19 (SARS-COV-2) 2021-09-08 Completed [facility], unspecified vaccine, unspecified 00:00:00 Medical COVID-19 (SARS-COV-2) COVID-19 (SARS-COV-2) 2021-09-08 Completed [facility], unspecified vaccine, unspecified 00:00:00 Medical COVID-19 (SARS-COV-2) COVID-19 (SARS-COV-2) 2021-09-08 Completed [facility], unspecified vaccine, unspecified 00:00:00 Medical COVID-19 (SARS-COV-2) COVID-19 (SARS-COV-2) 2021-09-08 Completed [facility], unspecified vaccine, unspecified 00:00:00 Medical COVID-19 (SARS-COV-2) COVID-19 (SARS-COV-2) 2021-09-08 Completed [facility], unspecified vaccine, unspecified 00:00:00 Medical COVID-19 (SARS-COV-2) COVID-19 (SARS-COV-2) 2021-09-08 Completed [facility], unspecified vaccine, unspecified 00:00:00 Medical influenza, influenza, 2021-07-09 Completed [facility] injectable, injectable, 00:00:00 Medical quadrivalent quadrivalent influenza, influenza, 2021-07-09 Completed [facility] injectable, injectable, 00:00:00 Medical quadrivalent quadrivalent influenza, influenza, 2021-07-09 Completed [facility], injectable, 00:00:00 Medical quadrivalent quadrivalent influenza, influenza, 2021-07-09 Completed [facility] injectable, injectable, 00:00:00 Medical quadrivalent quadrivalent influenza, influenza, 2021-07-09 Completed [facility] injectable, injectable, 00:00:00 Medical quadrivalent quadrivalent influenza, influenza, 2021-07-09 Completed [facility] injectable, injectable, 00:00:00 Medical quadrivalent quadrivalent influenza, influenza, 2021-07-09 Completed [facility] injectable, injectable, 00:00:00 Medical quadrivalent quadrivalent influenza, influenza, 2021-07-09 Completed [facility] injectable, injectable, 00:00:00 Medical quadrivalent quadrivalent influenza, influenza, 2021-07-09 Completed [facility] injectable, injectable, 00:00:00 Medical quadrivalent quadrivalent influenza, influenza, 2021-07-09 Completed [facility] injectable, injectable, 00:00:00 Medical quadrivalent quadrivalent influenza, influenza, 2021-07-09 Completed [facility] injectable, injectable, 00:00:00 Medical quadrivalent quadrivalent influenza, influenza, 2021-07-09 Completed [facility] injectable, injectable, 00:00:00 Medical quadrivalent quadrivalent influenza, influenza, 2021-07-09 Completed [facility] injectable, injectable, 00:00:00 Medical quadrivalent quadrivalent influenza, influenza, 2021-07-09 Completed [facility] inject[facility], injectable, 00:00:00 Medical quadrivalent quadrivalent influenza, influenza, 2021-07-09 Completed [facility] injectable, injectable, 00:00:00 Medical quadrivalent quadrivalent influenza, influenza, 2021-07-09 Completed [facility] injectable, injectable, 00:00:00 Medical quadrivalent quadrivalent COVID-19 (SARS-COV-2) COVID-19 (SARS-COV-2) 2020-10-22 Completed [facility], unspecified vaccine, unspecified 00:00:00 Medical COVID-19 (SARS-COV-2) COVID-19 (SARS-COV-2) 2020-10-22 Completed [facility], unspecified vaccine, unspecified 00:00:00 Medical COVID-19 (SARS-COV-2) COVID-19 (SARS-COV-2) 2020-10-22 Completed [facility], unspecified vaccine, unspecified 00:00:00 Medical COVID-19 (SARS-COV-2) COVID-19 (SARS-COV-2) 2020-10-22 Completed [facility], unspecified vaccine, unspecified 00:00:00 Medical COVID-19 (SARS-COV-2) COVID-19 (SARS-COV-2) 2020-10-22 Completed [facility], unspecified vaccine, unspecified 00:00:00 Medical COVID-19 (SARS-COV-2) COVID-19 (SARS-COV-2) 2020-10-22 Completed [facility], unspecified vaccine, unspecified 00:00:00 Medical COVID-19 (SARS-COV-2) COVID-19 (SARS-COV-2) 2020-10-22 Completed [facility], unspecified vaccine, unspecified 00:00:00 Medical COVID-19 (SARS-COV-2) COVID-19 (SARS-COV-2) 2020-10-22 Completed [facility], unspecified vaccine, unspecified 00:00:00 Medical COVID-19 (SARS-COV-2) COVID-19 (SARS-COV-2) 2020-10-22 Completed [facility], unspecified vaccine, unspecified 00:00:00 Medical COVID-19 (SARS-COV-2) COVID-19 (SARS-COV-2) 2020-10-22 Completed [facility], unspecified vaccine, unspecified 00:00:00 Medical COVID-19 (SARS-COV-2) COVID-19 (SARS-COV-2) 2020-10-22 Completed [facility], unspecified vaccine, unspecified 00:00:00 Medical COVID-19 (SARS-COV-2) COVID-19 (SARS-COV-2) 2020-10-22 Completed [facility], unspecified vaccine, unspecified 00:00:00 Medical COVID-19 (SARS-COV-2) COVID-19 (SARS-COV-2) 2020-10-22 Completed [facility], unspecified vaccine, unspecified 00:00:00 Medical COVID-19 (SARS-COV-2) COVID-19 (SARS-COV-2) 2020-10-22 Completed [facility], unspecified vaccine, unspecified 00:00:00 Medical COVID-19 (SARS-COV-2) COVID-19 (SARS-COV-2) 2020-10-22 Completed [facility], unspecified vaccine, unspecified 00:00:00 Medical COVID-19 (SARS-COV-2) COVID-19 (SARS-COV-2) 2020-10-22 Completed [facility] [...] [facility] polysaccharide PPV23 polysaccharide PPV23 00:00:00 Medical pneumococcal pneumococcal 2015-07-23 Completed [facility] polysaccharide PPV23 polysaccharide PPV23 00:00:00 Medical pneumococcal pneumococcal 2015-07-23 Completed [facility] polysaccharide PPV23 polysaccharide PPV23 00:00:00 Medical pneumococcal pneumococcal 2015-07-23 Completed [facility] polysaccharide PPV23 polysaccharide PPV23 00:00:00 Medical pneumococcal pneumococcal 2015-07-23 Completed [facility] polysaccharide PPV23 polysaccharide PPV23 00:00:00 Medical pneumococcal pneumococcal 2015-07-23 Completed [facility] polysaccharide PPV23 polysaccharide PPV23 00:00:00 Medical pneumococcal pneumococcal 2015-07-23 Completed [facility] polysaccharide PPV23 polysaccharide PPV23 00:00:00 Medical pneumococcal pneumococcal 2015-07-23 Completed [facility] polysaccharide PPV23 polysaccharide PPV23 00:00:00 Medical pneumococcal pneumococcal 2015-07-23 Completed [facility] polysaccharide PPV23 polysaccharide PPV23 00:00:00 Medical pneumococcal pneumococcal 2015-07-23 Completed [facility] polysaccharide PPV23 polysaccharide PPV23 00:00:00 Medical pneumococcal pneumococcal 2015-07-23 Completed [facility] polysaccharide PPV23 polysaccharide PPV23 00:00:00 Medical pneumococcal pneumococcal 2015-07-23 Completed [facility] polysaccharide PPV23 polysaccharide PPV23 00:00:00 Medical pneumococcal pneumococcal 2015-07-23 Completed [facility] polysaccharide PPV23 polysaccharide PPV23 00:00:00 Medical pneumococcal pneumococcal 2015-07-23 Completed [facility] polysaccharide PPV23 polysaccharide PPV23 00:00:00 Medical pneumococcal pneumococcal 2015-07-23 Completed [facility] polysaccharide PPV23 polysaccharide PPV23 00:00:00 Medical pneumococcal pneumococcal 2015-07-23 Completed [facility] polysaccharide PPV23 polysaccharide PPV23 00:00:00 Medical pneumococcal pneumococcal 2015-07-23 Completed [facility] polysaccharide PPV23 polysaccharide PPV23 00:00:00 Medical pneumococcal pneumococcal 2015-07-23 Completed [facility] polysaccharide PPV23 polysaccharide PPV23 00:00:00 Medical pneumococcal pneumococcal 2015-07-23 Completed [facility] polysaccharide PPV23 polysaccharide PPV23 00:00:00 Medical pneumococcal pneumococcal 2015-07-23 Completed [facility] polysaccharide PPV23 polysaccharide PPV23 00:00:00 Medical pneumococcal pneumococcal 2015-07-23 Completed [facility] polysaccharide PPV23 polysaccharide PPV23 00:00:00 Medical pneumococcal pneumococcal 2015-07-23 Completed [facility] polysaccharide PPV23 polysaccharide PPV23 00:00:00 Medical influenza, seasonal, influenza, seasonal, 2014-07-15 Completed [facility] injectable, injectable, 00:00:00 Medical preservative free preservative free influenza, seasonal, influenza, seasonal, 2014-07-15 Completed [facility] injectable, injectable, 00:00:00 Medical preservative free preservative free influenza, seasonal, influenza, seasonal, 2014-07-15 Completed [facility] injectable, injectable, 00:00:00 Medical preservative free preservative free influenza, seasonal, influenza, seasonal, 2014-07-15 Completed [facility] injectable, injectable, 00:00:00 Medical preservative free preservative free influenza, seasonal, influenza, seasonal, 2014-07-15 Completed [facility] injectable, injectable, 00:00:00 Medical preservative free preservative free influenza, seasonal, influenza, seasonal, 2014-07-15 Completed [facility] injectable, injectable, 00:00:00 Medical preservative free preservative free influenza, seasonal, influenza, seasonal, 2014-07-15 Completed [facility] injectable, injectable, 00:00:00 Medical preservative free preservative free influenza, seasonal, influenza, seasonal, 2014-07-15 Completed [facility] injectable, injectable, 00:00:00 Medical preservative free preservative free influenza, seasonal, influenza, seasonal, 2014-07-15 Completed [facility] injectable, injectable, 00:00:00 Medical preservative free preservative free influenza, seasonal, influenza, seasonal, 2014-07-15 Completed [facility] injectable, injectable, 00:00:00 Medical preservative free preservative free influenza, seasonal, influenza, seasonal, 2014-07-15 Completed [facility] injectable, injectable, 00:00:00 Medical preservative free preservative free influenza, seasonal, influenza, seasonal, 2014-07-15 Completed [facility] injectable, injectable, 00:00:00 Medical preservative free preservative free influenza, seasonal, influenza, seasonal, 2014-07-15 Completed [facility] injectable, injectable, 00:00:00 Medical preservative free preservative free influenza, seasonal, influenza, seasonal, 2014-07-15 Completed [facility] injectable, injectable, 00:00:00 Medical preservative free preservative free influenza, seasonal, influenza, seasonal, 2014-07-15 Completed [facility] injectable, injectable, 00:00:00 Medical preservative free preservative free influenza, seasonal, influenza, seasonal, 2014-07-15 Completed [facility] injectable, injectable, 00:00:00 Medical preservative free preservative free influenza, seasonal, influenza, seasonal, 2014-07-15 Completed [facility] injectable, injectable, 00:00:00 Medical preservative free preservative free influenza, seasonal, influenza, seasonal, 2014-07-15 Completed [facility] injectable, injectable, 00:00:00 Medical preservative free preservative free influenza, seasonal, influenza, seasonal, 2014-07-15 Completed [facility] injectable, injectable, 00:00:00 Medical preservative free preservative free influenza, seasonal, influenza, seasonal, 2014-07-15 Completed [facility] injectable, injectable, 00:00:00 Medical preservative free preservative free influenza, seasonal, influenza, seasonal, 2014-07-15 Completed [facility] injectable, injectable, 00:00:00 Medical preservative free preservative free influenza, seasonal, influenza, seasonal, 2014-07-15 Completed [facility] injectable, injectable, 00:00:00 Medical preservative free preservative free Vital Signs Vital Name Observation Time Observation Value Comments Source BP Diastolic 2022-11-02 00:00:00 67 mm[Hg] [facility] Height 2022-11-02 00:00:00 66 [in_i] [facility] BMI (Body Mass Index) 2022-11-02 00:00:00 27 kg/m2 [facility] BP Systolic 2022-11-02 00:00:00 99 mm[Hg] [facility] Body Weight 2022-11-02 00:00:00 2672 [oz_av] [facility] BP Diastolic 2022-10-19 00:00:00 70 mm[Hg] [facility] Height 2022-10-19 00:00:00 66 [in_i] [facility] BMI (Body Mass Index) 2022-10-19 00:00:00 27 kg/m2 [facility] BP Systolic 2022-10-19 00:00:00 133 mm[Hg] [facility] Body Weight 2022-10-19 00:00:00 2672 [oz_av] [facility] BP Diastolic 2022-09-29 00:00:00 64 mm[Hg] [facility] Height 2022-09-29 00:00:00 66 [in_i] [facility] BMI (Body Mass Index) 2022-09-29 00:00:00 27 kg/m2 [facility] BP Systolic 2022-09-29 00:00:00 114 mm[Hg] [facility] Body Weight 2022-09-29 00:00:00 2672 [oz_av] [facility] BP Diastolic 2022-09-21 00:00:00 89 mm[Hg] [facility] Height 2022-09-21 00:00:00 66 [in_i] [facility] BMI (Body Mass Index) 2022-09-21 00:00:00 27 kg/m2 [facility] BP Systolic 2022-09-21 00:00:00 117 mm[Hg] [facility] Body Weight 2022-09-21 00:00:00 2672 [oz_av] [facility] BP Diastolic 2022-09-10 00:00:00 70 mm[Hg] [facility] Height 2022-09-10 00:00:00 66 [in_i] [facility] BMI (Body Mass Index) 2022-09-10 00:00:00 27 kg/m2 [facility] BP Systolic 2022-09-10 00:00:00 123 mm[Hg] [facility] Body Weight 2022-09-10 00:00:00 2672 [oz_av] [facility] BP Diastolic 2022-08-24 00:00:00 77 mm[Hg] [facility] Height 2022-08-24 00:00:00 66 [in_i] [facility] BMI (Body Mass Index) 2022-08-24 00:00:00 27 kg/m2 [facility] BP Systolic 2022-08-24 00:00:00 129 mm[Hg] [facility] Body Weight 2022-08-24 00:00:00 2678 [oz_av] [facility] BP Diastolic 2022-07-09 00:00:00 62 mm[Hg] [facility] Height 2022-07-09 00:00:00 66 [in_i] [facility] BMI (Body Mass Index) 2022-07-09 00:00:00 26.5 kg/m2 [facility] BP Systolic 2022-07-09 00:00:00 125 mm[Hg] [facility] Body Weight 2022-07-09 00:00:00 2624 [oz_av] [facility] BP Diastolic 2022-07-06 00:00:00 72 mm[Hg] [facility] Height 2022-07-06 00:00:00 66 [in_i] [facility] BMI (Body Mass Index) 2022-07-06 00:00:00 26.5 kg/m2 [facility] BP Systolic 2022-07-06 00:00:00 114 mm[Hg] [facility] Body Weight 2022-07-06 00:00:00 2624 [oz_av] [facility] BP Diastolic 2022-06-01 00:00:00 65 mm[Hg] [facility] Height 2022-06-01 00:00:00 66 [in_i] [facility] BMI (Body Mass Index) 2022-06-01 00:00:00 25.8 kg/m2 [facility] BP Systolic 2022-06-01 00:00:00 120 mm[Hg] [facility] Body Weight 2022-06-01 00:00:00 2562 [oz_av] [facility] BP Diastolic 2022-05-07 00:00:00 76 mm[Hg] [facility] Height 2022-05-07 00:00:00 66 [in_i] [facility] BMI (Body Mass Index) 2022-05-07 00:00:00 22 kg/m2 [facility] BP Systolic 2022-05-07 00:00:00 130 mm[Hg] [facility] Body Weight 2022-05-07 00:00:00 2180 [oz_av] [facility] BP Diastolic 2022 00:00:00 68 mm[Hg] [facility] Height 2022 00:00:00 66 [in_i] [facility] BMI (Body Mass Index) 2022 00:00:00 23.8 kg/m2 [facility] BP Systolic 2022 00:00:00 148 mm[Hg] [facility] Body Weight 2022 00:00:00 2360 [oz_av] [facility] BP Diastolic 2022-04-06 00:00:00 72 mm[Hg] [facility] Height 2022-04-06 00:00:00 66 [in_i] [facility] BMI (Body Mass Index) 2022-04-06 00:00:00 23.8 kg/m2 [facility] BP Systolic 2022-04-06 00:00:00 118 mm[Hg] [facility] Body Weight 2022-04-06 00:00:00 2360 [oz_av] [facility] BP Diastolic 2022-03-19 00:00:00 78 mm[Hg] [facility] Height 2022-03-19 00:00:00 66 [in_i] [facility] BMI (Body Mass Index) 2022-03-19 00:00:00 23.8 kg/m2 [facility] BP Systolic 2022-03-19 00:00:00 111 mm[Hg] [facility] Body Weight 2022-03-19 00:00:00 2360 [oz_av] [facility] BP Diastolic 2022-03-05 00:00:00 70 mm[Hg] [facility] Height 2022-03-05 00:00:00 66 [in_i] [facility] BMI (Body Mass Index) 2022-03-05 00:00:00 23.8 kg/m2 [facility] BP Systolic 2022-03-05 00:00:00 116 mm[Hg] [facility] Body Weight 2022-03-05 00:00:00 2360 [oz_av] [facility] BP Diastolic 2022-03-04 00:00:00 74 mm[Hg] [facility] Height 2022-03-04 00:00:00 66 [in_i] [facility] BMI (Body Mass Index) 2022-03-04 00:00:00 23.8 kg/m2 [facility] BP Systolic 2022-03-04 00:00:00 118 mm[Hg] [facility] Body Weight 2022-03-04 00:00:00 2360 [oz_av] [facility] BP Diastolic 2022-02-12 00:00:00 72 mm[Hg] [facility] Height 2022-02-12 00:00:00 66 [in_i] [facility] BMI (Body Mass Index) 2022-02-12 00:00:00 23.8 kg/m2 [facility] BP Systolic 2022-02-12 00:00:00 118 mm[Hg] [facility] Body Weight 2022-02-12 00:00:00 2360 [oz_av] [facility] BP Diastolic 2022-02-10 00:00:00 68 mm[Hg] [facility] Height 2022-02-10 00:00:00 66 [in_i] [facility] BMI (Body Mass Index) 2022-02-10 00:00:00 23.9 kg/m2 [facility] BP Systolic 2022-02-10 00:00:00 108 mm[Hg] [facility] Body Weight 2022-02-10 00:00:00 2368 [oz_av] [facility] BP Diastolic 2022-02-02 00:00:00 62 mm[Hg] [facility] BP Systolic 2022-02-02 00:00:00 125 mm[Hg] [facility] Body Weight 2022-02-02 00:00:00 2368 [oz_av] [facility] BP Diastolic 2022-01-29 00:00:00 74 mm[Hg] [facility] Height 2022-01-29 00:00:00 66 [in_i] [facility] BMI (Body Mass Index) 2022-01-29 00:00:00 23.9 kg/m2 [facility] BP Systolic 2022-01-29 00:00:00 128 mm[Hg] [facility] Body Weight 2022-01-29 00:00:00 2368 [oz_av] [facility] BP Diastolic 2022-01-19 00:00:00 75 mm[Hg] [facility] Height 2022-01-19 00:00:00 66 [in_i] [facility] BMI (Body Mass Index) 2022-01-19 00:00:00 22.8 kg/m2 [facility] BP Systolic 2022-01-19 00:00:00 100 mm[Hg] [facility] Body Weight 2022-01-19 00:00:00 2258 [oz_av] [facility] BP Diastolic 2022-01-07 00:00:00 76 mm[Hg] [facility] Height 2022-01-07 00:00:00 66 [in_i] [facility] BMI (Body Mass Index) 2022-01-07 00:00:00 22.8 kg/m2 [facility] BP Systolic 2022-01-07 00:00:00 116 mm[Hg] [facility] Body Weight 2022-01-07 00:00:00 2258 [oz_av] [facility] BP Diastolic 2021-12-31 00:00:00 72 mm[Hg] [facility] Height 2021-12-31 00:00:00 66 [in_i] [facility] BMI (Body Mass Index) 2021-12-31 00:00:00 22.8 kg/m2 [facility] BP Systolic 2021-12-31 00:00:00 120 mm[Hg] [facility] Body Weight 2021-12-31 00:00:00 2256 [oz_av] [facility] Weight 2019-08-13 07:00:00 81.28 KG Height 2019-08-10 17:00:00 187.96 CM Procedures Procedure Date / Time Performed Performing Clinician Dean albrecht [id number] 2021-11-13 00:00:00 DOMINIC [facility] [id number] 2021-11-02 00:00:00 DOMINIC [facility] [id number] 2021-11-02 00:00:00 DOMINIC [facility] [id number] 2021-[facility]02 [facility] [id number] 2021-11-02 [facility] [id number] 2021-11-02 00:00[facility] [id number] 2021-11-02 00:00[facility] [id number] 2021-11-02 00:00:00 DOMINIC [facility] [id number] 2021-10-28 00:00:00 [facility] Plan of Care Planned Activity Planned Date Details Comments Source Diagnostic Test Pending 2021-12-31 drug screen, 14 [facility] 00:00:00 drugs (detectimed), urine [code = drug screen, 14 drugs (detectimed), urine] Future Appointment 2022-11-26 Katia Pearson [address] [place] [address] 00:00:00 [place] [address] Instructions [facility] Encounters Start End Encounter Admission Attending Care Care Encounter Source Date/Time Date/Time Type Type Clinicians Facility Department ID 2021-10-14 Outpatient Arteaga, Na [facility] [id number] 2 Common 11:22:12 [id number] [facility] 2021-10-14 Outpatient Arteaga, Na [facility] [id number] 2 Common 11:21:51 [id number] [facility] 2022-11-16 2022-11-16 Outpatient [facility]Tod PRIV PRIV [id number] [facility] 00:00:00 00:00:00 d_Betsy [id number] Medica l 2022-11-12 2022-11-12 Outpatient [facility]Tod PRIV PRIV [id number] [facility] 00:00:00 00:00:00 d_J [id number] Medica l 2022-11-11 2022-11-11 Outpatient [facility]Tod PRIV PRIV [id number] [facility] 00:00:00 00:00:00 d_J [id number] Medica l 2022-11-02 2022-11-02 Mathew Cardona [facility] [id number] [facility] 00:00:00 00:00:00 Jenaro [facility] - Med ical MD: [address] [address] , Ph. 2022-10-20 2022-10-20 Outpatient [facility]_Tod PRIV PRIV [id number] [facility] 00:00:00 00:00:00 d_J [id number] Medica l 2022-10-20 2022-10-20 Outpatient [facility]Tod PRIV PRIV [id number] [facility] 00:00:00 00:00:00 d_J [id number] Medica l 2022-10-19 2022-10-19 [facility] [id number] [facility] 00:00:00 00:00:00 WERNER Pearson: [facility] - Med ical [address] [address] , Ph. 2022-10-15 2022-10-15 Outpatient [facility]_Tod PRIV PRIV [id number] [facility] 00:00:00 00:00:00 d_J [id number] Medica l 2022-10-15 2022-10-15 Outpatient [facility]_Tod PRIV PRIV [id number] [facility] 00:00:00 00:00:00 d_J [id number] Medica l 2022-10-13 2022-10-13 Outpatient [facility]Tod PRIV PRIV [id number] [facility] 00:00:00 00:00:00 d_J [id number] Medica l 2022-09-29 2022-09-29 Outpatient [facility]od PRIV PRIV [id number] [facility] 00:00:00 00:00:00 d_J [id number] Medica l 2022-09-29 2022-09-29 Outpatient [facility]Tod PRIV PRIV 239 [id number] [facility] 00:00:00 00:00:00 d_J [id number] Medica l 2022-09-29 2022-09-29 [facility] [id number] [facility] 00:00:00 00:00:00 WERNER Pearson: Health - Med ical [address] [place] [address] , Ph. 2022-09-21 2022-09-21 Outpatient [facility]Tod PRIV PRIV 239 [id number] [facility] 00:00:00 00:00:00 d_J [id number] Medica l 2022-09-21 2022-09-21 Outpatient [facility]Tod PRIV PRIV 239 [id number] [facility] 00:00:00 00:00:00 d_J [id number] Medica l 2022-09-21 2022-09-21 [facility] [id number] [facility] 00:00:00 00:00:00 WERNER Pearson: Health - Med ical [address] [address] , Ph. 2022-09-16 2022-09-16 Outpatient [facility]_Tod PRIV PRIV 239 [id number] [facility] 00:00:00 00:00:00 d_J [id number] Medica l 2022-09-14 2022-09-14 Outpatient [facility]Tod PRIV PRIV 239 [id number] [facility] 00:00:00 00:00:00 d_J [id number] Medica l 2022-09-10 2022-09-10 [facility] [id number] [facility] 00:00:00 00:00:00 WERNER Pearson: Health - Med ical [address] [address] , Ph. 2022-09-03 2022-09-03 Outpatient [facility]Tod PRIV PRIV 239 [id number] [facility] 00:00:00 00:00:00 d_J [id number] Medica l 2022-08-27 2022-08-27 Outpatient [facility]Tod PRIV PRIV 239 [id number] [facility] 00:00:00 00:00:00 d_J [id number] Medica l 2022-08-24 2022-08-24 [facility] 206 [facility] 00:00:00 00:00:00 WERNER Pearson: [facility] - Med ica [address] [address] , Ph. 2022-08-18 2022-08-18 Outpatient [facility]_Tod PRIV PRIV 239 [id number] [facility] 00:00:00 00:00:00 d_J [id number] Medica l 2022-08-18 2022-08-18 Outpatient [facility]Tod PRIV PRIV 239 [id number] [facility] 00:00:00 00:00:00 d_J [id number] Medica l 2022-08-04 2022-08-04 Outpatient [facility]Tod PRIV PRIV 239 [id number] [facility] 00:00:00 00:00:00 d_J [id number] Medica l 2022-07-27 2022-07-27 Outpatient [facility]Tod PRIV PRIV 239 [id number] [facility] 00:00:00 00:00:00 d_J [id number] Medica l 2022-07-26 2022-07-26 Outpatient [facility]Tod PRIV PRIV 239 [id number] [facility] 00:00:00 00:00:00 d_J [id number] Medica l 2022-07-23 2022-07-23 Outpatient [facility]Tod PRIV PRIV 239 [id number] [facility] 00:00:00 00:00:00 d_J [id number] Medica l 2022-07-20 2022-07-20 [facility] [id number] [facility] 00:00:00 00:00:00 WERNER Pearson: Health - Med ical [address] [place] [address] , Ph. 2022-07-15 2022-07-15 Outpatient [facility]_Tod PRIV PRIV 239 [id number] [facility] 00:00:00 00:00:00 d_J [id number] Medica l 2022-07-09 2022-07-09 Outpatient [facility]Tod PRIV PRIV 239 [id number] [facility] 00:00:00 00:00:00 d_J [id number] Medica l 2022-07-09 2022-07-09 [facility] 021 [facility] 00:00:00 00:00:00 WERNER Pearson: Health - Med ical [address] [place] [address] , Ph. 2022-07-06 2022-07-06 Outpatient [facility]_Tod PRIV PRIV 239 [id number] [facility] 00:00:00 00:00:00 d_J [id number] Medica l 2022-07-06 2022-07-06 Mathew [facility] 202 [facility] 00:00:00 00:00:00 Jenaro [facility] - Med ical MD: [address] [address] , Ph. 2022-06-29 2022-06-29 Outpatient [facility]Tod PRIV PRIV 239 [id number] [facility] 00:00:00 00:00:00 d_J [id number] Medica l 2022-06-02 2022-06-02 Outpatient [facility]Tod PRIV PRIV 239 [id number] [facility] 00:00:00 00:00:00 d_J [id number] Medica l 2022-06-01 2022-06-01 Outpatient ROSS Pearson [facility] [id number] 00:00:00 00:00:00 Katia portillof-11ed-9 [id number] 2022-06-01 2022-06-01 [facility] [id number] [facility] 00:00:00 00:00:00 WERNER Pearson: Health - Med ical [address] [place] [address] , Ph. 2022-05-31 2022-05-31 Outpatient [facility]Tod PRIV PRIV 239 [id number] [facility] 00:00:00 00:00:00 d_J [id number] Medica l 2022-05-28 2022-05-28 Outpatient [facility]Tod PRIV PRIV 239 [id number] [facility] 00:00:00 00:00:00 d_J [id number] Medica l 2022-05-25 2022-05-25 Outpatient [facility]Tod PRIV PRIV 239 [id number] [facility] 00:00:00 00:00:00 d_J [id number] Medica l 2022-05-20 2022-05-20 Outpatient [facility]Tod PRIV PRIV 239 [id number] [facility] 00:00:00 00:00:00 d_J [id number] Medica l 2022-05-10 2022-05-10 Outpatient [facility]Tod PRIV PRIV 239 [id number] [facility] 00:00:00 00:00:00 d_J [id number] Medica l 2022-05-07 2022-05-07 Outpatient [facility]Tod PRIV PRIV 239 [id number] [facility] 00:00:00 00:00:00 d_J [id number] Medica l 2022-05-07 2022-05-07 Outpatient Michel ROSS PRIV [id number] 00:00:00 00:00:00 Katia [id number] 2022-05-07 2022-05-07 [facility] [id number] [facility] 00:00:00 00:00:00 WERNER Pearson: Health - Med ical [address] [place] [address] , Ph. 2022-05-05 2022-05-05 Outpatient [facility]_Tod PRIV PRIV 239 [id number] [facility] 00:00:00 00:00:00 d_J [id number] Medica l 2022 2022 Outpatient [facility]Tod PRIV PRIV 239 [id number] [facility] 00:00:00 00:00:00 d_J [id number] Medica l 2022 2022 Outpatient Jenaro, PRIV PRIV [id number] 00:00:00 00:00:00 Mathew Cardona [id number]-07ec-[id number] 2022 2022 Mathew Cardona [facility] [id number] [facility] 00:00:00 00:00:00 Jenaro [facility] - Med ical MD: [address] [place] [address] , Ph. 2022-04-12 2022-04-12 Outpatient [facility]Tod PRIV PRIV 239 [id number] [facility] 11:50:00 11:50:00 d_J [id number] Medica l 2022-04-06 2022-04-06 Outpatient [facility]_Tod PRIV PRIV 239 [id number] [facility] 10:04:00 10:04:00 d_J [id number] Medica l 2022-04-06 2022-04-06 Outpatient [facility]Tod PRIV PRIV 239 [id number] [facility] 10:04:00 10:04:00 d_J [id number] Medica l 2022-04-06 2022-04-06 Katia [facility] [id number] [facility] 00:00:00 00:00:00 WERNER Pearson: Health - Med ical [address] [place] [address] , Ph. 2022-04-06 2022-04-06 Outpatient Michel, PRIV PRIV [id number] 00:00:00 00:00:00 Katia [id number] 2022-03-29 2022-03-29 Outpatient [facility]Tod PRIV PRIV 239 [id number] [facility] 02:04:00 02:04:00 d_J [id number] Medica l 2022-03-28 2022-03-28 Outpatient [facility]Tod PRIV PRIV 239 [id number] [facility] 10:59:00 10:59:00 d_J [id number] Medica l 2022-03-26 2022-03-26 Outpatient [facility]Tod PRIV PRIV 239 [id number] [facility] 12:02:00 12:02:00 d_J [id number] Medica l 2022-03-25 2022-03-25 Outpatient [facility]Tod PRIV PRIV 239 [id number] [facility] 10:06:00 10:06:00 d_J [id number] Medica l 2022-03-19 2022-03-19 Outpatient [facility]Tod PRIV PRIV 239 [id number] [facility] 04:13:00 04:13:00 d_J [id number] Medica l 2022-03-19 2022-03-19 [facility] [id number] [facility] 00:00:00 00:00:00 WERNER Pearson: Health - Med ical [address] [place] [address] , Ph. 2022-03-19 2022-03-19 Outpatient Michel, PRIV PRIV [id number] c-0 00:00:00 00:00:00 Katia 09b-11ed-a [id number] 2022-03-17 2022-03-17 Outpatient [facility]Tod PRIV PRIV 239 [id number] [facility] 09:14:00 09:14:00 d_J [id number] Medica l 2022-03-14 2022-03-14 Outpatient [facility]_Tod PRIV PRIV 239 [id number] [facility] 10:45:00 10:45:00 d_J [id number] Medica l 2022-03-12 2022-03-12 Outpatient [facility]Tod PRIV PRIV 239 [id number] [facility] 04:53:00 04:53:00 d_J [id number] Medica l 2022-03-05 2022-03-05 Outpatient [facility]Tod PRIV PRIV 239 [id number] [facility] 09:05:00 09:05:00 d_J [id number] Medica l 2022-03-05 2022-03-05 Outpatient [facility]Tod PRIV PRIV 239 [id number] [facility] 09:05:00 09:05:00 d_J [id number] Medica l 2022-03-05 2022-03-05 [facility] [id number] [facility] 00:00:00 00:00:00 WERNER Pearson: Health - Med ical [address] [address] , Ph. 2022-03-05 2022-03-05 Outpatient Michel, PRIV PRIV [id number] 00:00:00 00:00:00 Katia 58a-11ec-a [id number] 2022-03-04 2022-03-04 Outpatient [facility]_Tod PRIV PRIV 239 [id number] [facility] 10:54:00 10:54:00 d_J [id number] Medica l 2022-03-04 2022-03-04 Outpatient Jenaro [facility] PRIV [id number] 00:00:00 00:00:00 Mathew Cardona [id number] 2022-03-04 2022-03-04 Mathew Cardona [facility] [id number] [facility] 00:00:00 00:00:00 Jenaro [facility] - Med ical MD: [address] [address] , Ph. 2022-02-21 2022-02-21 Outpatient [facility]_Tod PRIV PRIV 239 [id number] [facility] 10:40:00 10:40:00 d_J [id number] Medica l 2022-02-18 2022-02-18 Outpatient [facility]Tod PRIV PRIV 239 [id number] [facility] 02:07:00 02:07:00 d_J [id number] Medica l 2022-02-15 2022-02-15 Outpatient [facility]Tod PRIV PRIV 239 [id number] [facility] 02:03:00 02:03:00 d_J [id number] Medica l 2022-02-12 2022-02-12 Outpatient [facility]Tod PRIV PRIV 239 [id number] [facility] 08:00:00 08:00:00 d_J [id number] Medica l 2022-02-12 2022-02-12 Outpatient Michel, PRIV PRIV [id number] [id number] 00:00:00 00:00:00 Katia 525-11ec-9 [id number] 2022-02-12 [facility]02-[facility] [id number] [facility] 00:00:00 00:00:00 WERNER Pearson: Health - Med ical [address] [place] [address] , Ph. 2022-02-11 2022-02-11 Outpatient [facility]_Tod PRIV PRIV 239 [id number] [facility] 11:07:00 11:07:00 d_J [id number] Medica l 2022-02-10 2022-02-10 Outpatient [facility]Tod PRIV PRIV 239 [id number] [facility] 05:20:00 05:20:00 d_J [id number] Medica l 2022-02-10 2022-02-10 Outpatient Michel, PRIV PRIV [id number] c-[id number] 00:00:00 00:00:00 Katia 28b-11ec-9 [id number] 2022-02-10 2022-02-10 [facility] [id number] [facility] 00:00:00 00:00:00 WERNER Pearson: Health - Med ical [address] [address] , Ph. 2022-02-07 2022-02-07 Outpatient [facility]_Tod PRIV PRIV [id number] [facility] 10:45:00 10:45:00 d_J [id number] Medica l 2022-02-05 2022-02-05 Outpatient [facility]_Tod PRIV PRIV [id number] [facility] 09:30:00 09:30:00 d_J [id number] Medica l 2022-02-05 2022-02-05 [facility] [id number] [facility] 00:00:00 00:00:00 WERNER Pearson: Health - Med ical [address] [address] , Ph. 2022-02-02 2022-02-02 Outpatient [facility]_Tod PRIV PRIV [id number] [facility] 05:07:00 05:07:00 d_J [id number] Medica l 2022-02-02 2022-02-02 Outpatient Michel PRIV PRIV [id number] c-d 00:00:00 00:00:00 Katia cfe-11ec-a [id number] 2022-02-02 2022-02-02 [facility] [id number] [facility] 00:00:00 00:00:00 WERNER Pearson: Health - Med ical [address] [address] , Ph. 2022-01-29 2022-01-29 Outpatient [facility]_Tod PRIV PRIV [id number] [facility] 01:17:00 01:17:00 d_J [id number] Medica l 2022-01-29 2022-01-29 Outpatient Michel, PRIV PRIV [id number] [id number] 00:00:00 00:00:00 Katia [id number] 2022-01-29 2022-01-29 [facility] [id number] [facility] 00:00:00 00:00:00 WERNER Pearson: Health - Med ical [address] [address] , Ph. 2022-01-27 2022-01-27 Outpatient GC_[facility]_Tod PRIV PRIV [id number] [facility] 10:53:00 10:53:00 d_J [id number] Medica l 2022-01-19 2022-01-19 Outpatient [facility]_Tod PRIV PRIV [id number] [facility] 07:50:00 07:50:00 d_J [id number] Medica l 2022-01-19 2022-01-19 Outpatient Michel, PRIV PRIV [id number] e-d 00:00:00 00:00:00 Katia 145-11ec-9 [id number] 2022-01-19 2022-01-19 [facility] [id number] [facility] 00:00:00 00:00:00 WERNER Pearson: Health - Med ical [address] [address] , Ph. 2022-01-16 2022-01-16 Outpatient GC_[facility]_Tod PRIV PRIV 239 [id number] [facility] 09:17:00 09:17:00 d_J [id number] Medica l 2022-01-10 2022-01-10 Outpatient [facility]_Tod PRIV PRIV [id number] [facility] 08:11:00 08:11:00 d_J [id number] Medica l 2022-01-07 2022-01-07 Outpatient [facility]_Tod PRIV PRIV [id number] [facility] 08:29:00 08:29:00 d_J [id number] Medica l 2022-01-07 2022-01-07 Outpatient Jenaro, PRIV PRIV [id number] 00:00:00 00:00:00 Mathew Cardona [id number] 2022-01-07 2022-01-07 Mathew Cardona [facility] 00:00:00 00:00:00 Jenaro [facility] - Med ica MD: [address] , [place] [address] , Ph. 2022-01-07 2022-01-07 Outpatient Jenaro, PRIV PRIV [id number] 00:00:00 00:00:00 Mathew Cardona 1fa-11ed-9 [id number] 2022-01-05 2022-01-05 Outpatient GC_[facility]_Tod PRIV PRIV [id number] [facility] 01:05:00 01:05:00 d_J [id number] Medica l 2022-01-01 2022-01-01 Outpatient GC_[facility]_Tod PRIV PRIV [id number] [facility] 02:12:00 02:12:00 d_J [id number] Medica l 2021-12-31 2021-12-31 Outpatient [facility]_Tod PRIV PRIV [id number] [facility] 05:55:00 05:55:00 d_J [id number] Medica l 2021-12-31 2021-12-31 Outpatient [place], PRIV PRIV [id number] 00:00:00 00:00:00 December [id number] 2021-12-31 2021-12-31December [facility] 14 [facility] 00:00:00 00:00:00 [place], [facility] - Medic al [place] APPLIER: [address] , [place] [address] , Ph. 2021-12-31 2021-12-31 Outpatient [place], PRIV PRIV [id number] e-f 00:00:00 00:00:00 December edb-11ec-9 [id number] 2021-12-28 2021-12-28 Outpatient [facility] PRIV PRIV [id number] [facility] 05:07:00 05:07:00 fish_Christina [id number] Medica 2021-10-28 2021-11-17 Emergency EM Micheal, [facility] MEDI.01 [id number] 00:33:00 16:31:00 Roselia 96 [facility] 2019-12-05 2019-12-05 Out[facility] [id number] [place] 09:37:00 09:37:00 [place] [address] [facility] 2019-08-20 2019-08-20 Out[facility] [id number] Common 11:20:00 11:20:00 [place] [address] [facility] 2019-08-10 2019-08-18 Inpatient E PASCUAL, [facility] [id number] [place] 20:44:00 15:00:00 [facility] 2019-08-09 2019-08-09 Out[facility] [id number] Common 16:31:00 16:31:00 [place] [address] [facility] 2019-08-07 2019-08-07 Outpatient [facility] [id number] Common 14:43:00 14:43:00 [place] [address] [facility] 2019-05-16 2019-05-16 Outpatient [facility] [id number] Common 10:20:00 10:20:00 [place] [address] [facility] 2019-02-27 2019-02-27 Outpatient [facility] [id number] Common 13:20:00 13:20:00 [place] [address] [facility] 2019-01-01 2019-01-01 Outpatient [facility] 25 [id number] Common 09:54:00 09:54:00 [place] [address] [facility] 2019-01-01 2019-01-01 Outpatient [facility] [id number] Common 09:00:00 09:00:00 [place] [address] [facility] 2018-11-30 2018-11-30 Outpatient [facility] [id number] Common 10:45:00 10:45:00 [place] [address] [facility] 2018-11-24 2018-11-24 Outpatient [facility] [id number] Common 15:45:00 15:45:00 [place] [address] [facility] 2018-10-25 2018-10-25 Outpatient [facility] [id number] Common 09:00:00 09:00:00 [place] [address] [facility] 2018-08-30 2018-08-30 Outpatient [facility] [id number] Common 09:45:00 09:45:00 [place] [address] [facility] 2018-08-29 2018-08-29 Outpatient [facility] [id number] Common 09:54:00 09:54:00 [place] [address] [facility] 2018-06-30 2018-06-30 Outpatient [facility] [id number] Common 09:30:00 09:30:00 [place] [address] [facility] 2018-05-31 2018-05-31 Outpatient [facility] [id number] Common 15:00:00 15:00:00 [place] [address] [facility] 2018-05-03 2018-05-03 Outpatient [facility] 15 [id number] Common 09:30:00 09:30:00 [place] [address] [facility] 2018-03-30 2018-03-30 Outpatient [facility] [id number] Common 16:33:00 16:33:00 [place] [address] [facility] 2018-03-23 2018-03-23 Outpatient [facility] [id number] Common 08:36:00 08:36:00 [place] [address] [facility] 2018-03-21 2018-03-21 Outpatient Nancy Cruzt 14 [id number] Common 08:45:00 08:45:00 [place] [address] [facility] 2018-02-20 2018-02-20 Outpatient Nancy Cruzt 13 [id number] Common 08:45:00 08:45:00 [place] [address] [facility] 2018-01-20 2018-01-20 Outpatient Nancy Cruzt 13 [id number] Common 09:00:00 09:00:00 [place] [address] [facility] Results Test Description Test Time Test Comments Results Result Comments Source Cholesterol in LDL [Mass/volume] in Serum or Plasma 00:00:00 Test Item Value Reference Range Interpretation Comme nts Cholesterol in LDL [Mass/volume] in Serum or Plasma (test code = 20 89-1) [id number] 15:15:00 Test Item Value Reference Range Interpretation Comments SURGICAL (test code = SR) R UN DATE: 11/17/21 [facility] - LAB PAGE 1 RUN TIME: 1515 Specimen Inquiry RUN USER: INTERFACE P ATIENT: VIKA CHEN #: [id number] LOC: [place] U #: [id number] AGE/SX: 56/M ROOM: [facility] RE10/28/21REG DR: Roselia Burton MD : 61 BED: 1 DIS: STATUS: ADM IN TLOC: SPEC #: [id number] RECD: 11/16/21-1027 STATUS: RICARDO REQ #: [id number] ABNER: 11/13/21- DR: Matt Herrera MD ENTERED: 11/16/21-0 SP TYPE: SURGICAL OTHR DR: Self Referred Dillon Herrera MD, Husam Ismail MD Loya, Altaf N MD Mbogua, Caroline N MD Reyhani, Sean A DPMORDERED: BONE DECAL, GM LEVEL 5, ANATOMIC SPEC CODES: [id number] - LEG, NOS COPIES TO: Self Referred Matt Herrera MD [address] [place] [address] Dillon Herrera MD [address] [facility] [address] [place] [address] Rafael Isidro MD [address] [place] [address] [place] [address] [facility] [address] [place] [address] Savanna Lira MD [address] [place] [address] Donald Dodson DPM [address] [facility]. [address] [place] [id number] [email or web address] CONTINUED ON NEXT PAGE R UN DATE: 11/17/21 [facility] - LAB PAGE 2 RUN TIME: 1515 Specimen Inquiry RUN USER: INTERFACE S PEC #: [id number] PATIENT: VIKA CHEN #[id number] (Continued) PROCEDURES: BONE DECAL (11/16/21-1551) GM LEVEL 5 (11/16/21-1030) TISSUES: LEG, NOS - LEFT AKA CLINICAL HISTORY SAME FINAL DIAGNOSIS Left foot and leg, vvgrp-xrz-prxd amputation: Gangrenous extremity with ulcer andosteomyelitis; calcified arterial sclerosis; viable skin and soft tissue resection margin;femoral bone margin negative for osteomyelitis. GROSS DESCRIPTION Received fresh without fixative labeled "left foot/leg "is an above-knee amputationspecimen. It measures 27 cm from heel-to-toe tip, 53 cm from heel to patella, 9 cm frompatella to femur resection margin. The skin and soft tissue resection margin appears freshand viable. The popliteal 3 artery is remarkable for a metal stent. The foot is remarkablefor large areas of black gangrene, up to 15 cm including the fifth toe. A 3.5 cm ulcer isnot present at the heel. Storekeeper Helper sections are submitted: (A) femur marrow margin;(B) skin and soft tissue resection margin; (C) popliteal artery margin; (D) heel ulcer withbone after decal. Technical component performed at [facility],[address] [place] [address], [place] [address] Unless gross only, the diagnosis is based upon microscopic examination.Immunohistochemistr y: This test was developed and its performance characteristicsdetermined by this laboratory. It has not been approved nor does it need approvalby the [place] FDA. Appropriate positive and negative controls are reviewed and judgedto be acceptable. This laboratory is certified under the Clinical Laboratory ImprovementAmendments (CLIA-88) as qualified to perform high complexity clinical laboratory testing. CLINICAL INFORMATION LEFT FOOT GANGRENE ------- Signed SIGNATURE ON FILE Siena Still 11/17/21 1515 END OF REPORT COVID 19 INHOUSE [id number] 13:30:00 Test Item Value Reference Range Interpretation Comments COVID 19 INHOUSE Negative Negative A negative result is AG (test code = presumptive and should be [id number]) confirmedwith a n FDA authorized mole cular [...] high or waivedcomplexit y tests. BASIC METABOLIC [id number] 07:46:00 Test Item Value Reference Range Interpretation [...] 8.1 mg/dL 8.0-10.5 N CA) CBC W/AUTO [id number] 07:08:00 Test Item Value Reference Range Interpretation [...] REQUIRED (test code NO = MDIFF) PROTHROMBIN [id number] 06:19:00 Test Item Value Reference Range Interpretation [...] (to prevent recurrent infar ct). 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 [facility] - XR CHEST 1 [id number] 00:00:00 [facility] LANDRYName: VIKA CHEN : 1965 Sex: M FAX: Rayo Adkins DPM [phone] Tracy: St: [facility] FAX: Savanna Louise [phone] FAX: Roselia Marquez MD [phone] Name: VIKA CHEN [facility] Mcalister : 1965 Age/S: 56/M [address] [place] [address] Unit#: [id number] Loc: [address] [address] Phys: Rayo Moreira [facility] Acct: [id number] Dis Date: Status: ADM IN PHONE #: [phone] Exam Date: 11/12/20211856 FAX #: [phone] Reason: PRE OP EXAMS: CPT CODE: [id number] XR CHEST 1 V 84499 PROCEDURE INFORMATION: Exam: XR Chest Exam date [...] normal limits. Aortic calcifications. Bones/joints: No acute abnormality. IMPRESSION: Hypoinflated lungs.No acute consolidation or interstitial edema identified. at 0700 Reported and signed by: Faustino Sims M.D. CC: Rayo Moreira DPM; Savanna Lira MD; Roselia Burton MD Technologist: RT Clara(R) Trnscrd Date/Time/By: 11/13/2021 (699) : By: [email or web address] Orig Print D/T: S: 11/13/2021 (07) PAGE 1 Signed ReportCOVID 19 Asymptomatic IH [id number] 10:31:00 Test Item Value Reference Range Interpretation [...] moderate, high or waivedcomplexit y tests. VANCOMYCIN [id number] 05:05:00 Test Item Value Reference Range Interpretation Comments VANCOMYCIN TROUGH 15.0 mcg/mL 10.0-20.0 N 10-15 mcg/ mL - (test code = VANCT) Cellulit is, Urinary Tract Infection . 15-20 mcg/mL - Bacteremia, Infective Endocarditis, Meningitis, Osteomyelitis, Pneumonia, Su re Skin/Soft-Tissu e Infection, Spin al Abscess. 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 [facility] GLUCOSE [id number] 11:32:00 Test Item Value Reference Range Interpretation Comments GLUCOSE BEDSIDE (test 98 MG/DL 70-110 N Perfor med by certified code = GLUBED) unit reactor operator at [facility] GLUCOSE [id number] 07:44:00 Test Item Value Reference Range Interpretation Comments GLUCOSE BEDSIDE (test 86 MG/DL 70-110 N Perfor med by certified code = GLUBED) unit reactor operator at [facility] GLUCOSE [id number] 20:12:00 Test Item Value Reference Range Interpretation Comments GLUCOSE BEDSIDE (test 109 MG/DL 70-110 N Perfor med by certified code = GLUBED) unit reactor operator at [facility] GLUCOSE [id number] 16:27:00 Test Item Value Reference Range Interpretation Comments GLUCOSE BEDSIDE (test 98 MG/DL 70-110 N Perfor med by certified code = GLUBED) unit reactor operator at [facility] VANCOMYCIN [id number] 14:11:00 Test Item Value Reference Range Interpretation Comments VANCOMYCIN TROUGH 8.2 mcg/mL 10.0-20.0 L 10-15 mcg/ mL - (test code = VANCT) Cellulit is, Urinary Tract Infection . 15-20 mcg/mL - Bacteremia, Inf ective Endocarditis, Meningitis, Osteomyelitis, Pneumonia, Su re Skin/Soft-Tissu e Infection, Spin al Abscess. 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 15-20 mcg/mL - Bacteremia, Infective Endocarditis, Meningitis, Osteomyelitis, Pneumonia, Su re Skin/Soft-Tissu e Infection, Spin al Abscess. 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 at [facility] GLUCOSE [id number] 11:19:00 Test Item Value Reference Range Interpretation Comments GLUCOSE BEDSIDE (test 149 MG/DL 70-110 H Perfor med by certified code = GLUBED) unit reactor operator at [facility] GLUCOSE [id number] 09:02:00 Test Item Value Reference Range Interpretation Comments GLUCOSE BEDSIDE (test 101 MG/DL 70-110 N Perfor med by certified code = GLUBED) unit reactor operator at [facility] GLUCOSE [id number] 16:24:00 Test Item Value Reference Range Interpretation Comments GLUCOSE BEDSIDE (test 96 MG/DL 70-110 N Perfor med by certified code = GLUBED) unit reactor operator at [facility] GLUCOSE [id number] 12:34:00 Test Item Value Reference Range Interpretation Comments GLUCOSE BEDSIDE (test 93 MG/DL 70-110 N Perfor med by certified code = GLUBED) unit reactor operator at [facility] GLUCOSE [id number] 07:59:00 Test Item Value Reference Range Interpretation Comments GLUCOSE BEDSIDE (test 87 MG/DL 70-110 N Perfor med by certified code = GLUBED) unit reactor operator at [facility] BLOOD UREA [id number] 04:11:00 Test Item Value Reference Range Interpretation Comments BLOOD UREA NITROGEN (test code = 13 mg/dL 7-18 BUN) [id number] 04:11:00 Test Item Value Reference Range Interpretation Comments CREATININE (test code = CREAT) 0.7 mg/dL 0.6-1.3 N GLUCOSE [id number] 20:35:00 Test Item Value Reference Range Interpretation Comments GLUCOSE BEDSIDE (test 106 MG/DL 70-110 N Perfor med by certified code = GLUBED) unit reactor operator at [facility] GLUCOSE [id number] 16:32:00 Test Item Value Reference Range Interpretation Comments GLUCOSE BEDSIDE (test 109 MG/DL 70-110 N Perfor med by certified code = GLUBED) unit reactor operator at [facility] COMPREHENSIVE METABOLIC [id number] 16:02:00 Test Item Value Reference Range Interpretation [...] N TOTAL (test code = ALKP) GLUCOSE [id number] 12:00:00 Test Item Value Reference Range Interpretation Comments GLUCOSE BEDSIDE (test 105 MG/DL 70-110 N Perfor med by certified code = GLUBED) unit reactor operator at [facility] GLUCOSE [id number] 07:18:00 Test Item Value Reference Range Interpretation Comments GLUCOSE BEDSIDE (test 85 MG/DL 70-110 N Perfor med by certified code = GLUBED) unit reactor operator at [facility] GLUCOSE [id number] 20:30:00 Test Item Value Reference Range Interpretation Comments GLUCOSE BEDSIDE (test 76 MG/DL 70-110 N Perfor med by certified code = GLUBED) unit reactor operator at [facility] VANCOMYCIN [id number] 17:08:00 Test Item Value Reference Range Interpretation Comments VANCOMYCIN TROUGH 14.2 mcg/mL 10.0-20.0 N 10-15 mcg/ mL - (test code = VANCT) Cellulit is, Urinary Tract Infection . 15-20 mcg/mL - Bacteremia, Infective Endocarditis, Meningitis, Osteomyelitis, Pneumonia, Su re Skin/Soft-Tissu e Infection, Spin al Abscess. GLUCOSE [id number] 16:39:00 Test Item Value Reference Range Interpretation Comments GLUCOSE BEDSIDE (test 109 MG/DL 70-110 N Perfor med by certified code = GLUBED) unit reactor operator at [facility] GLUCOSE [id number] 11:46:00 Test Item Value Reference Range Interpretation Comments GLUCOSE BEDSIDE (test 103 MG/DL 70-110 N Perfor med by certified code = GLUBED) unit reactor operator at [facility] GLUCOSE [id number] 06:48:00 Test Item Value Reference Range Interpretation Comments GLUCOSE BEDSIDE (test 75 MG/DL 70-110 N Perfor med by certified code = GLUBED) unit reactor operator at [facility] GLUCOSE [id number] 19:41:00 Test Item Value Reference Range Interpretation Comments GLUCOSE BEDSIDE (test 98 MG/DL 70-110 N Perfor med by certified code = GLUBED) unit reactor operator at [facility] GLUCOSE [id number] 17:07:00 Test Item Value Reference Range Interpretation Comments GLUCOSE BEDSIDE (test 87 MG/DL 70-110 N Perfor med by certified code = GLUBED) unit reactor operator at [facility] GLUCOSE [id number] 12:34:00 Test Item Value Reference Range Interpretation Comments GLUCOSE BEDSIDE (test 105 MG/DL 70-110 N Perfor med by certified code = GLUBED) unit reactor operator at [facility] GLUCOSE [id number] 09:08:00 Test Item Value Reference Range Interpretation Comments GLUCOSE BEDSIDE (test 130 MG/DL 70-110 H Perfor med by certified code = GLUBED) unit reactor operator at [facility] BASIC METABOLIC [id number] 08:05:00 Test Item Value Reference Range Interpretation [...] 9.1 mg/dL 8.0-10.5 N CA) CBC W/AUTO [id number] 07:49:00 Test Item Value Reference Range Interpretation [...] REQUIRED (test code NO = MDIFF) GLUCOSE [id number] 21:23:00 Test Item Value Reference Range Interpretation Comments GLUCOSE BEDSIDE (test 91 MG/DL 70-110 N Perfor med by certified code = GLUBED) unit reactor operator at [facility] GLUCOSE [id number] 16:42:00 Test Item Value Reference Range Interpretation Comments GLUCOSE BEDSIDE (test 89 MG/DL 70-110 N Perfor med by certified code = GLUBED) unit reactor operator at [facility] GLUCOSE [id number] 12:20:00 Test Item Value Reference Range Interpretation Comments GLUCOSE BEDSIDE (test 74 MG/DL 70-110 N Perfor med by certified code = GLUBED) unit reactor operator at [facility] GLUCOSE [id number] 22:34:00 Test Item Value Reference Range Interpretation Comments GLUCOSE BEDSIDE (test 98 MG/DL 70-110 N Perfor med by certified code = GLUBED) unit reactor operator at [facility] GLUCOSE [id number] 15:35:00 Test Item Value Reference Range Interpretation Comments GLUCOSE BEDSIDE (test 106 MG/DL 70-110 N Perfor med by certified code = GLUBED) unit reactor operator at [facility] GLUCOSE [id number] 07:51:00 Test Item Value Reference Range Interpretation Comments GLUCOSE BEDSIDE (test 110 MG/DL 70-110 N Perfor med by certified code = GLUBED) unit reactor operator at [facility] CBC W/AUTO [id number] 07:02:00 Test Item Value Reference Range Interpretation [...] (test NO code = MDIFF) BASIC METABOLIC [id number] 06:15:00 Test Item Value Reference Range Interpretation [...] 21 MCG/ML 50.0-100.0 L = VALP) GLUCOSE [id number] 20:02:00 Test Item Value Reference Range Interpretation Comments GLUCOSE BEDSIDE (test 98 MG/DL 70-110 N Perfor med by certified code = GLUBED) unit reactor operator at [facility] GLUCOSE [id number] 16:08:00 Test Item Value Reference Range Interpretation Comments GLUCOSE BEDSIDE (test 83 MG/DL 70-110 N Perfor med by certified code = GLUBED) unit reactor operator at [facility] GLUCOSE [id number] 12:05:00 Test Item Value Reference Range Interpretation Comments GLUCOSE BEDSIDE (test 90 MG/DL 70-110 N Perfor med by certified code = GLUBED) unit reactor operator at [facility] GLUCOSE [id number] 09:59:00 Test Item Value Reference Range Interpretation Comments GLUCOSE BEDSIDE (test 75 MG/DL 70-110 N Perfor med by certified code = GLUBED) unit reactor operator at [facility] GLUCOSE [id number] 08:47:00 Test Item Value Reference Range Interpretation Comments GLUCOSE BEDSIDE (test 71 MG/DL 70-110 N Perfor med by certified code = GLUBED) unit reactor operator at [facility] GLUCOSE [id number] 08:16:00 Test Item Value Reference Range Interpretation Comments GLUCOSE BEDSIDE (test 59 MG/DL 70-110 L [facility] med by certified code = GLUBED) unit reactor operator at [facility] BASIC METABOLIC [id number] 07:59:00 Test Item Value Reference Range Interpretation [...] 9.1 mg/dL 8.0-10.5 N CA) CBC W/AUTO [id number] 07:49:00 Test Item Value Reference Range Interpretation [...] 0.0-0.1 N NRBC#) COVID 19 Asymptomatic IH [id number] 06:23:00 Test Item Value Reference Range Interpretation [...] moderate, high or waivedcomplexit y tests. GLUCOSE [id number] 18:01:00 Test Item Value Reference Range Interpretation Comments GLUCOSE BEDSIDE (test 127 MG/DL 70-110 H Perfor med by certified code = GLUBED) unit reactor operator at [facility] VANCOMYCIN [id number] 14:38:00 Test Item Value Reference Range Interpretation Comments VANCOMYCIN TROUGH 11.1 mcg/mL 10.0-20.0 N 10-15 mcg/ mL - (test code = VANCT) Cellulit is, Urinary Tract Infection . 15-20 mcg/mL - Bacteremia, Infective Endocarditis, Meningitis, Osteomyelitis, Pneumonia, Su re Skin/Soft-Tissu e Infection, Spin al Abscess. GLUCOSE [id number] 12:15:00 Test Item Value Reference Range Interpretation Comments GLUCOSE BEDSIDE (test 130 MG/DL 70-110 H Perfor med by certified code = GLUBED) unit reactor operator at [facility] CBC W/AUTO [id number] 09:05:00 Test Item Value Reference Range Interpretation [...] 0.00 x10 3/uL 0.0-0.1 N NRBC#) GLUCOSE [id number] 08:31:00 Test Item Value Reference Range Interpretation Comments GLUCOSE BEDSIDE (test 104 MG/DL 70-110 N Perfor med by certified code = GLUBED) unit reactor operator at [facility] BASIC METABOLIC [id number] 07:54:00 Test Item Value Reference Range Interpretation [...] = 9.5 mg/dL 8.0-10.5 N CA) GLUCOSE [id number] 21:02:00 Test Item Value Reference Range Interpretation Comments GLUCOSE BEDSIDE (test 118 MG/DL 70-110 H Perfor med by certified code = GLUBED) unit reactor operator at [facility] GLUCOSE [id number] 15:58:00 Test Item Value Reference Range Interpretation Comments GLUCOSE BEDSIDE (test 105 MG/DL 70-110 N Perfor med by certified code = GLUBED) unit reactor operator at [facility] GLUCOSE [id number] 12:08:00 Test Item Value Reference Range Interpretation Comments GLUCOSE BEDSIDE (test 112 MG/DL 70-110 H Perfor med by certified code = GLUBED) unit reactor operator at [facility] CBC W/AUTO [id number] 08:12:00 Test Item Value Reference Range Interpretation [...] 0.00 x10 3/uL 0.0-0.1 N NRBC#) GLUCOSE [id number] 07:51:00 Test Item Value Reference Range Interpretation Comments GLUCOSE BEDSIDE (test 103 MG/DL 70-110 N Perfor med by certified code = GLUBED) unit reactor operator at [facility] BASIC METABOLIC [id number] 07:34:00 Test Item Value Reference Range Interpretation [...] = 8.9 mg/dL 8.0-10.5 N CA) GLUCOSE [id number] 20:06:00 Test Item Value Reference Range Interpretation Comments GLUCOSE BEDSIDE (test 138 MG/DL 70-110 H Perfor med by certified code = GLUBED) unit reactor operator at [facility] GLUCOSE [id number] 16:20:00 Test Item Value Reference Range Interpretation Comments GLUCOSE BEDSIDE (test 89 MG/DL 70-110 N Perfor med by certified code = GLUBED) unit reactor operator at [facility] VANCOMYCIN [id number] 13:00:00 Test Item Value Reference Range Interpretation Comments VANCOMYCIN TROUGH 17.8 mcg/mL 10.0-20.0 N 10-15 mcg/ mL - (test code = VANCT) Cellulit is, Urinary Tract Infection . 15-20 mcg/mL - Bacteremia, Infective Endocarditis, Meningitis, Osteomyelitis, Pneumonia, Su re Skin/Soft-Tissu e Infection, Spin al Abscess. GLUCOSE [id number] 11:31:00 Test Item Value Reference Range Interpretation Comments GLUCOSE BEDSIDE (test 130 MG/DL 70-110 H Perfor med by certified code = GLUBED) unit reactor operator at [facility] BASIC METABOLIC [id number] 08:03:00 Test Item Value Reference Range Interpretation [...] = 8.8 mg/dL 8.0-10.5 N CA) GLUCOSE [id number] 07:23:00 Test Item Value Reference Range Interpretation Comments GLUCOSE BEDSIDE (test 82 MG/DL 70-110 N [facility] med by certified code = GLUBED) unit reactor operator at [facility] CBC W/AUTO [id number] 07:22:00 Test Item Value Reference Range Interpretation [...] 0.00 x10 3/uL 0.0-0.1 N NRBC#) GLUCOSE [id number] 22:30:00 Test Item Value Reference Range Interpretation Comments GLUCOSE BEDSIDE (test 187 MG/DL 70-110 H Perfor med by certified code = GLUBED) unit reactor operator at [facility] GLUCOSE [id number] 20:31:00 Test Item Value Reference Range Interpretation Comments GLUCOSE BEDSIDE (test 57 MG/DL 70-110 L Perfor med by certified code = GLUBED) unit reactor operator at [facility] GLUCOSE [id number] 16:56:00 Test Item Value Reference Range Interpretation Comments GLUCOSE BEDSIDE (test 100 MG/DL 70-110 N Perfor med by certified code = GLUBED) unit reactor operator at [facility] [id number] 08:32:00 Test Item Value Reference Range Interpretation Comments HGBA1C% (test code = HGBA1C%) 5.6 %A1C 4.8-6.0 N BASIC METABOLIC [id number] 08:08:00 Test Item Value Reference Range Interpretation [...] RATIOS: RISK CHOLHDL) MALE FEMALE1/2 AVERAGE 3.43 3.27AVERAG E 4.97 4.442X AVERAGE 9.55 7.053X AVERAGE 23.39 11.04 NOTE THAT THE REFERENCE VALUE IS RELATEDTO RISK LEVELS RECOMMENDED BY THE NATL.HEART, MADDISON G, AND BLOOD INST. HDL CHOLESTEROL 29.2 mg/dL 32-72 L (test code = HDL) LIPOPROTEIN LDL 62.1 mg/dL 0-100 N <100 OPTIMAL 100-129 (test code = LDL) NEAR OPTIM AL/ABOVE [id number] 89 HIGH>LP=443 KALE Y HIGH*Guidelines provided by the National Choles terol EducationProgra m Adult Treatment Panel III Indication for Test: Malabsorption/MalnutritioT4 [id number] 08:08:00 Test Item Value Reference Range Interpretation Comments T4 FREE (test code = T4F) 1.1 ng/dL 0.77-1.61 N Indication for Test: Malabsorption/MalnutritioTHYROID STIMULATING HORMONE 2021-10-29 08:08:00 Test Item Value Reference Range Interpretation Comments THYROID STIMULATING 3.95 0.42-5.47 N Results in HORMONE (test code = TSH) mi lli-International Units/mL Indication for Test: Malabsorption/MalnutritioVITAMIN D 53-[id number] 08:08:00 Test Item Value Reference Range Interpretation Comments VITAMIN D 25-HYDROXY (test code = 25.2 ng/mL 30-100 L VITD25) Indication for Test: Malabsorption/MalnutritioCBC W/AUTO [id number] 07:33:00 Test Item Value Reference Range Interpretation [...] REQUIRED (test code NO = MDIFF) GLUCOSE [id number] 06:41:00 Test Item Value Reference Range Interpretation Comments GLUCOSE BEDSIDE (test 68 MG/DL 70-110 L Perfor med by certified code = GLUBED) unit reactor operator at [facility] GLUCOSE [id number] 21:16:00 Test Item Value Reference Range Interpretation Comments GLUCOSE BEDSIDE (test 114 MG/DL 70-110 H Perfor med by certified code = GLUBED) unit reactor operator at [facility] GLUCOSE [id number] 19:47:00 Test Item Value Reference Range Interpretation Comments GLUCOSE BEDSIDE (test 82 MG/DL 70-110 N Perfor med by certified code = GLUBED) unit reactor operator at [facility] GLUCOSE [id number] 18:43:00 Test Item Value Reference Range Interpretation Comments GLUCOSE BEDSIDE (test 66 MG/DL 70-110 L Perfor med by certified code = GLUBED) unit reactor operator at [facility] GLUCOSE [id number] 13:46:00 Test Item Value Reference Range Interpretation Comments GLUCOSE BEDSIDE (test 85 MG/DL 70-110 N Perfor med by certified code = GLUBED) unit reactor operator at [facility] GLUCOSE [id number] 13:11:00 Test Item Value Reference Range Interpretation Comments GLUCOSE BEDSIDE (test 55 MG/DL 70-110 L Perfor med by certified code = GLUBED) unit reactor operator at [facility] GLUCOSE [id number] 09:02:00 Test Item Value Reference Range Interpretation Comments GLUCOSE BEDSIDE (test 95 MG/DL 70-110 N Perfor med by certified code = GLUBED) unit reactor operator at [facility] SED RATE [id number] 07:08:00 Test Item Value Reference Range Interpretation Comments SED RATE WESTERGREN (test code = 87 mm/hr 0-15 H SEDW) C REACTIVE [id number] 06:16:00 Test Item Value Reference Range Interpretation Comments C REACTIVE PROTEIN (test code = 68.0 mg/L <10.0 H CRP) LACTIC ACID [id number] 06:14:00 Test Item Value Reference Range Interpretation Comments LACTIC ACID REPEAT (test code = 0.7 mmol/l 0.4-1.9 N LACTR) LACTIC [id number] 00:32:00 Test Item Value Reference Range Interpretation Comments LACTIC ACID (test code = LACT) 3.1 mmol/L 0.4-1.9 H - DOP ART PIPELINE 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 SUPERVISOR LEVEL [id number] 00:00:00 [facility] 1965 Sex: M Name: VIKA CHEN [facility] : 1965 Age/S: 56 / M [address] [place] [address] Blvd Unit #: [id number] Loc: [place] [address] Phys: Donald Dodson DPM Acct: [id number] Dis Date: Status: ADM IN PHONE #: [phone] Exam Date: 10/28/2021 1315 FAX #: [phone] Reason: gangrene left foot EXAMS: CPT CODE: [id number] DOP ART PIPELINE MAINTENANCE SUPERVISOR LEVEL MAMAT 21078 PROCEDURE INFORMATION: Exam: US Duplex Lower Extremity Arteries Exam date and time: 10/28/2021 12:51 PM Age: 56 years old Clinical indication: Other: Gangrene left foot TECHNIQUE: Imaging protocol: Real-time ultrasound scan of the arteries of the bilaterallower extremities with 2-D pérez scale, color Doppler flow and spectral waveform analysis. Images documented and saved. COMPARISON: DX XR FOOT 2 VIEWS LT 10/27/2021 11:36 PM Right lower extremity: The right ankle-brachial index is 1.01 which is normal. Multiphasic flow is seen in the right common femoralartery and within the proximal and mid right superficial femoral artery. Monophasic flow is seen in the distal right superficial femoral artery, right popliteal artery and right dorsalis pedis artery. Dampened monophasic flow in the right posterior tibial artery. Scattered atherosclerotic disease seenabout the right lower extremity arteries. Left lower [...] Signed Report (CONTINUED) Name: VIKA CHEN [facility] : 1965 Age/S: 56 / M [address] [place] [address] Blvd Unit #: [id number] Loc: [place] [address] Phys: Donald Dodson DPGideon Acct: [id number] Dis Date: Status: ADM IN PHONE #: [phone] Exam Date: 10/28/2021 1315 FAX #: [phone] Reason: gangrene left foot EXAMS: CPT CODE: [id number] DOP ART PIPELINE MAINTENANCE SUPERVISOR LEVEL MAMTA 08706 <Continued> CC: Savanna Lira MD; Roselia Burton MD; Donald Dodson DPM Technologist: Sari Ontiveros RDMS(AB) Trnscb Date/Time: 10/28/2021 (1321) t.[email or web address].[email or web address] Orig Print D/T: S: 10/28/2021 (1321) Probe: PAGE 2 Signed Report- XR FOOT 2 VIEWS [id number] 00:00:00 [facility] : 1965 Sex: M FAX: Savanna Louise [phone] [place]: St: REG FAX: Angelo Oro NP [phone] Name: VIKA CHEN [facility] : 1965 Age/S: 56/M [address] [place] [address] Blvd Unit #: [id number] Loc: [place] [address] Phys: Angelo Oro NP Acct: [id number] Dis Date: Status: REG ER PHONE #: [phone] Exam Date: 10/27/2021 2350 FAX #: [phone] Reason: L foot pain EXAMS: CPT CODE: [id number] XR FO[place] [address] [place] [address] PROCEDURE INFORMATION: Exam: XR Left Foot Exam [...] fracture or focal bony destruction. Soft tissues: Thereare no radiopaque foreign bodies. There is no [...] 10/28/2021 (0000) PAGE 1 Signed ReportBASIC METABOLIC [id number] 23:22:00 Test Item Value Reference Range Interpretation [...] 9.2 mg/dL 8.0-10.5 N CA) CBC W/AUTO [id number] 23:11:00 Test Item Value Reference Range Interpretation [...] 0.0-0.1 N NRBC#) - XR CHEST 1 [id number] 00:00:00 [facility] : 1965 Sex: M FAX: Savanna Louise [phone] [place]: St: REG FAX: Angelo Oro NP [phone] Name: VIKA CHEN [facility] : 1965 Age/S: 56/M [address] [place] [address] Bl Unit #: [id number] Loc: [place] [address] Phys: Angelo Oro NP Acct: [id number] Dis Date: Status: REG ER PHONE #: [phone] Exam Date: 10/27/2021 2348 FAX #: [phone] Reason: Cough EXAMS: CPT CODE: [id number] XR CHEST 1 V 88744 PROCEDURE INFORMATION: Exam: XR Chest Exam date [...] No radiographically identified acute cardiopulmonary findings. at 5509 Reported and signed by: Ewelina Potter M.D. CC: Savanna Lira MD; Angelo Oro NP Technologist: Cathy Snow RT(R) TrnscrdDate/Time/By: 10/27/2021 (6717) : By: [email or web address] Orig Print D/T: S: 10/27/2021 (9207) PAGE 1 Signed ReportGLUCOMETER GLUCOSE- LAB USE [id number] 17:16:00 Test Item Value Reference Range Interpretation Comments GLUCOMETER (test code 116 mg/dL 70-100 H CLEANE D METERMeter ID: = GMG) [id number] tor: [address] [facility] GLUCOMETER GLUCOSE- LAB USE [id number] 07:52:00 Test Item Value Reference Range Interpretation Comments GLUCOMETER (test code = 89 mg/dL 70-100 NANCY DIDI METERMeter ID: GMG) [id number] tor: 6297 ROXANNE MACK [id number] 22:37:00 Test Item Value Reference Range Interpretation Comments FOLATE (test code = A75) 33.1 ng/mL 3.1-17.5 H THYROID PANEL/SCREEN (TSH)2019-08-10 22:32:00 Test Item Value Reference Range Interpretation Comments TSH (test code = A57) 1.480 uIU/mL 0.358-3.740 LIPID [id number] 22:17:00 Test Item Value Reference Range Interpretation Comments CHOLESTROL (test code = 44A) 183 mg/dL 140-200 TRIGLYCERI (test code = 42B) 139 mg/dL <=149 HDL (test code = 83D) 41.0 mg/dL 40.0-60.0 LDL (test code = 34B) 115 mg/dL <=99 H CHL/HDL (test code = CHR) 4.5 0.0-3.4 H [id number] 22:17:00 Test Item Value Reference Range Interpretation Comments PREALBUMIN (test code = 08E) 28 mg/dL 18-38 [id number] 21:57:00 Test Item Value Reference Range Interpretation Comments MAGNESIUM (test code = 48A) 2.2 mg/dL 1.8-2.4 COMPREHENSIVE METABOLIC [id number] 18:16:00 Test Item Value Reference Range Interpretation [...] (test code = 31A) 47 IU/L <=78 [id number] 18:16:00 Test Item Value Reference Range Interpretation Comments ACETAMINPH (test code = 94M) <2.0 ug/mL 10.0-30.0 L ALCOHOL BLOOD (ETOH)2019-08-10 18:15:00 Test Item Value Reference Range Interpretation Comments ETOH (test code = HALC) ETHANOL The result is to be used only for medical purposes ALCOHOL (test code = <10 mg/dL <=10 56A) PRO TIME AND [id number] 18:14:00 Test Item Value Reference Range Interpretation [...] LMW Heparin. Order Code is ANTI-XA CARDIAC [id number] 18:14:00 Test Item Value Reference Range Interpretation Comments TROPONIN I (test code = A84) <0.015 ng/mL 0.000-0.045 AMMONIA [id number] 18:10:00 Test Item Value Reference Range Interpretation Comments AMMONIA (test code = 54A) 21 umol/L 11-32 [id number] 18:10:00 Test Item Value Reference Range Interpretation Comments SALICYLATE (test code = 94B) 2.7 mg/dL 2.8-20.0 L XR CHEST 1 VIEW [id number] 18:05:16LOCATION: [id number]: 54-year-old male, psychiatric workup.COMMENT: A frontal chest [...] ng/mL Barbiturates 200 ng/mL Opiates 2000 ng/mL [id number] 17:59:00 Test Item Value Reference Range Interpretation [...]
[2022-11-23 14:31] LABS: Protime INR 1.03
[2022-11-23 14:38] LABS: Absolute Lymphocytes (CBC) 1.4 K/uL (0.7-4.9); Hematocrit 39.3 % (39.6-49.0); Lymphocytes % 19.5 % (15.3-44.8); MCV 94.2 fL (80-100); MPV 7.2 fL (7.6-11.3); RBC Red Blood Cell Count 4.17 M/uL (4.33-5.43)
[2022-11-23] MEDS ORDERED: NA CHLORIDE 0.9% 1,000 ML ONE (14:39)
--- NOTE | 2022-11-23 14:46 | RAD REPORT ---
EXAM DESCRIPTION: RAD - Chest Single View - 11/23/2022 2:24 pm CLINICAL HISTORY: Cough;COPD Chest pain. COMPARISON: Chest Single View dated 12/07/2021; Chest Single View dated 11/30/2021; Chest Single View dated 10/15/2018; Chest Single View dated 12/13/2017 FINDINGS: Portable technique limits examination quality. Mild pulmonary edema is seen. The heart is moderately enlarged. No displaced fractures. IMPRESSION: Mild to moderate CHF.
[2022-11-23 14:50] LABS: ALT/SGPT 14 U/L (16-61); AST/SGOT 22 U/L (15-37); Albumin 3.4 g/dL (3.4-5.0); Alkaline Phosphatase 53 U/L (45-117); BUN Blood Urea Nitrogen 20 mg/dL (7-18); Bicarbonate 31 mmol/L (21-32); Bilirubin Total 0.2 mg/dL (0.2-1.0); Glomerular Filtration Rate 73 ml/min (=/>90); Glucose Level 106 mg/dL (74-106); Lipase 22 U/L (13-75); Magnesium 2.1 mg/dL (1.6-2.4); NT PRO-BNP 159 pg/mL (<125); Potassium 4.2 mmol/L (3.5-5.1); Protein, Total 8.2 g/dL (6.4-8.2); Sodium Level 139 mmol/L (136-145); Troponin High Sensitivity 10.8 pg/mL (<58.9)
[2022-11-23 14:51] LABS: Bilirubin Direct < 0.1 mg/dL (0-0.2)
--- NOTE | 2022-11-23 15:07 | RAD REPORT ---
EXAM DESCRIPTION: CT - Head Brain Wo Cont - 11/23/2022 2:56 pm CLINICAL HISTORY: Dizziness;Mental status change Headache, drowsiness COMPARISON: Head Brain Wo Cont dated 11/30/2021; Head Brain Wo Cont dated 10/23/2021 TECHNIQUE: All CT scans are performed using dose optimization technique as appropriate and may inclu de automated exposure control or mA/KV adjustment according to patient size. FINDINGS: No intracranial hemorrhage, hydrocephalus or extra-axial fluid collection.Moderate general ized brain atrophy is present with moderate periventricular and deep white matter chronic microvascul ar ischemic changes.No areas of brain edema or evidence of midline shift. Gliosis is seen right tempo ral lobe. The paranasal sinuses and mastoids are clear. Postsurgical changes right superior parietal calvarium. IMPRESSION: No acute intracranial abnormality.
[2022-11-23 15:09] LABS: SARS-COV-2 RT PCR NEGATIVE (NEGATIVE)
[2022-11-23 15:38] LABS: Urine Blood Trace-intact (Negative); Urine Glucose Negative (Negative); Urine Protein Negative (Negative)
[2022-11-23 15:59] LABS: Urine Bacteria None Seen /HPF (<20); Urine Mucus Slight /HPF (None Seen)
[2022-11-23] MEDS ORDERED: PIPERACIL/TAZO 3.375 GM VIAL IV ONE (16:26)
[2022-11-23] MEDS ORDERED: IPRATROPIUM BROM 0.5MG/2.5ML ONE (16:26)
[2022-11-23] MEDS ORDERED: METHYLPREDNISOLONE 125 MG INJ ONE (16:26)
[2022-11-23] MEDS ORDERED: LEVALBUTEROL 1.25 MG/3 ML NEB ONE (16:26)
[2022-11-23] MEDS ORDERED: FUROSEMIDE 20 MG/ 2ML VIAL ONE (17:35)
[2022-11-23 18:42] VITALS: TEMP 98.8
[2022-11-23 18:43] VITALS: BP 118/65; O2SAT 95
--- NOTE | 2022-11-24 13:04 | EKG ---
Test Date: 2022-11-23 Test Time: 14:50:35 Lead Qa Analyst: BARB MEASUREMENT RESULTS: Intervals: Rate: 87 NE: 160 QRSD: 78 QT: 402 QTc: 483 [place]: P: 67 NE: 160 QRS: 35 T: 87 INTERPRETIVE STATEMENTS: Normal sinus rhythm Low voltage QRS Cannot rule out Anterior infarct, age undetermined Abnormal ECG Compared to ECG 11/30/2021 12:00:09 Low QRS voltage now present Myocardial infarct finding now present Prolonged QT interval no longer present Electronically Signed On 11-24-22 13:03:07 BROADCAST MAINTENANCE ENGINEER by Lloyd Menezes
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
== END 2022-11-23 18:16 | disposition short-term general hospital (02) ==
LOC: ER 13:37
DX: J15.8 Pneumonia due to other specified bacteria (principal); I50.40 Unspecified combined systolic (congestive) and diastolic (congestive) heart failure; R41.82 Altered mental status, unspecified; I10 Essential (primary) hypertension; F20.9 Schizophrenia, unspecified; Z20.822 Contact with and (suspected) exposure to COVID-19; Z88.7 Allergy status to serum and vaccine
CPT/HCPCS: 93005; 87040 ×2; 85025; 80048; 36415; 83735; 85610; 80076; 80164; 83605; 84484; 83690; 83880; 0240U; 70450; 71045; 96375; 96374; 99285; J1940; J7614; J2543; J7644; J2930; J7030; 81003; 81015

== ENCOUNTER 2023-07-11 17:47 | Inpatient (IN) | payer OTHER ==
--- OUTSIDE RECORDS SUMMARY | 2023-07-11 18:00 | XMS REPORT | Continuity of Care Document ---
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
Durat ion of therapy: 5 days ipratropium Yes .5mg 0.5 mg, Uni vers (ATROVENT) 308 Inhalation ity of 0.02 % 14:00: , QID, [place] nebulizer 00 First dose Medi john solution on Tue Branch 0.5 mg 11/24/22 at 0800, Until Discontinu ed, Routine levalbutero Yes 1.25mg 1.25 mg, Univers l (XOPENEX) 11-24 Inhalation it y of nebulizer 14:00: , QID, [place] solution 00 First dose Medic al 1.25 mg on Tue Branch 11/24/22 at 0800, Until Discontinu ed, Routine furosemide Yes 20mg 20 mg, Unive rs (LASIX) 308 Slow IV ity of injection 14:00: Push, [place] 20 mg 00 Q12H, Medical First dose Branch on Tue11/24/22 at 0800, Until Discontinu ed, Routine ferrous 0 Yes 325mg 325 mg, Univer s sulfate 308 Oral, BID, ity of tablet 325 14:00: First dose [place] mg 00 on Tue Medical 11/24/22 at Branch 0800, Until Discontinu ed, Routine QUEtiapine 0 Yes 400mg 400 mg, Uni vers (SEROQUEL) 3-08 Oral, BID, ity of tablet 400 04:15: First dose [place] mg 00 on [facility] 11/23/22 at Branch 2215, Until Discontinu ed, Routine melatonin 2023-0 Yes 9mg 9 mg, Univers (MELATIN) 3-08 Oral, QHS, ity of tablet 9 mg 04:15: First dose [place] 00 on [facility] 11/23/22 at Branch 2215, Until Discontinu ed, Routine pregabalin 2022-0 Yes 75mg 75 mg, Unive rs (LYRICA) 3-08 Oral, TID, ity o f capsule 75 04:15: First dose [place] mg 00 on [facility] 11/23/22 at Branch 2215, Until Discontinu ed, Routine magnesium 2022-0 Yes 400mg 400 mg, Univ ers oxide 3-08 Oral, BID, ity of (MAG-OX 04:15: First dose [place] 400[place] tablet 00 on [facility] Medica l 400 mg 11/23/22 at Branch 2215, Until Discontinu ed, Routine lactulose 2022-0 Yes 30mL 30 mL, Univer s (CEPHULAC) 3-08 Oral, BID, ity of solution 30 04:15: First dose [place] mL 00 on [facility] 11/23/22 at Branch 2215, Until Discontinu ed, Routine busPIRone 2022-0 Yes 15mg 15 mg, Univer s (BUSPAR) 3-08 Oral, TID, ity o f tablet 15 04:15: First dose [place] mg 00 on [facility] 11/23/22 at Branch 2215, Until Discontinu ed, Routine ascorbic 2022-0 Yes 500mg 500 mg, Unive rs acid 3-08 Oral, TID, ity of (vitamin C) 04:15: First dose [place] (VITAMIN C) 00 on e Medica l tablet 500 11/23/22 at Bran ch mg 2215, Until Discontinu ed, Routine aspirin 2022-0 Yes 81mg 81 mg, Univers chewable 3-08 Oral, QAM ity of tablet 81 04:15: WITH [place] mg 00 BREAKFAST, Medical First dose Branch on [facility] 11/23/22 at 2215, Until Discontinu ed, Routine acetaminoph 2023-0 2023- No 650mg 650 mg, U nivers en 3-08 03-09 Oral, ity of (TYLENOL) 01:57: 00:50 Q6HPRN, [place] tablet 650 59 :22 Starting Medic al mg on Tue11/23/22 at 1957, Until Tue11/24/22 at 1850, Routine, Pain (scale 1-3) pregabalin 2022- No 75mg Take 1 Univ ers 75 mg 11-23 capsule by ity of capsule 22:44: 00:00 mouth in [place] 35 :00 the Medical morning Branch and 1 capsule at noon and 1 capsule in the evening. Indication s: Phantom limb pain syndrome gabapentin No 300mg Take 1 Uni vers (NEURONTIN) 11-23 capsule by i ty of 300 mg 22:44: 00:00 mouth in [place] capsule 26 :00 the [facility] morning Branch and 1 capsule at noon and 1 capsule in the evening. quetiapine quetiapine No quetiapine [facility] 400 mg [...] oral; at oral; at bedtime bedtime bedtime QUEtiapine No 50mg Take 1 Tab [facility] (SEROQUEL) 12-05 by mouth ity of 50 mg 00:00: 00:00 at [place] tablet 00 :00 bedtime. Medical Branch QUEtiapine 2022- No 50mg Take 1 Tab [facility] (SEROQUEL) 3-19 11-23 by mouth ity of 50 mg 00:00: 00:00 at [place] tablet 00 :00 bedtime. Medical Branch acetaminoph acetaminoph No acetaminop [facility] en 300 [...] No Probiotic [facility] )actobacill )actobacill )actobacil Medical [facility] combination combination combinatio no 4) no [...] nasal mcg/actuat spray,suspe spray,suspe ion nasal nsion [place] nsion [place] spray,susp 1 spray 1 spray ension every day every day [place] 1 by nasal by nasal spray route. [...] No Probiotic [facility] )actobacill )actobacill )actobacil Medical [facility] combination combination combinatio no 4) no [...] nasal mcg/actuat spray,suspe spray,suspe ion nasal nsion [place] nsion [place] spray,susp 1 spray 1 spray ension every day every day [place] 1 by nasal by nasal spray route. [...] No Probiotic [facility] )actobacill )actobacill )actobacil Medical [facility] combination combination combinatio no 4) no [...] nasal mcg/actuat spray,suspe spray,suspe ion nasal nsion [place] nsion [place] spray,susp 1 spray 1 spray ension every day every day [place] 1 by nasal by nasal spray route. [...] No Probiotic [facility] )actobacill )actobacill )actobacil Medical [facility] combination combination combinatio no 4) no [...] nasal mcg/actuat spray,suspe spray,suspe ion nasal nsion [place] nsion [place] spray,susp 1 spray 1 spray ension every day every day [place] 1 by nasal by nasal spray route. [...] No Probiotic [facility] )actobacill )actobacill )actobacil Medical [facility] combination combination combinatio no 4) no [...] nasal mcg/actuat spray,suspe spray,suspe ion nasal nsion [place] nsion [place] spray,susp 1 spray 1 spray ension every day every day [place] 1 by nasal by nasal spray route. [...] No Probiotic [facility] )actobacill )actobacill )actobacil Medical [facility] combination combination combinatio no 4) no [...] nasal mcg/actuat spray,suspe spray,suspe ion nasal nsion [place] nsion [place] spray,susp 1 spray 1 spray ension every day every day [place] 1 by nasal by nasal spray route. [...] Probiotic No Probiotic [facility] )actobacill )actobacill )actobacil [facility] combination combination combinatio no 4) no [...] route. route. buspirone buspirone No buspirone [facility] 10 mg 10 mg 10 mg Medical tablet tablet tablet buspirone buspirone No buspirone [facility] 15 mg 15 mg 15 mg Medical tablet Take tablet Take tablet 1 tablet 3 1 tablet 3 Take 1 times a day times a day tablet 3 by oral by oral times a route. route. day by oral route. cephalexin cephalexin No cephalexin [facility] 250 mg 250 mg 250 mg Medical capsule capsule capsule cephalexin cephalexin No cephalexin [facility] 500 mg 500 mg 500 mg Medical capsule capsule capsule Complete Complete No 1 Q1D Complete [place] via Multivitami Multivitami Multivitam Medical n Adult 50 n Adult 50 in Adult Plus 0.4 Plus 0.4 50 Plus mg-300 mg-300 0.4 mg-300 mcg-250 mcg mcg-250 mcg mcg-250 tablet Take tablet Take mcg tablet 1 tablet 1 tablet Take 1 every day every day tablet by oral by oral every day route. route. by oral route. diclofenac diclofenac No diclofenac [facility] 1 % topical 1 % topical 1 % M edical gel gel topical gel diclofenac diclofenac No diclofenac [facility] 3 % topical 3 % topical 3 % M edical gel gel topical gel divalproex divalproex No divalproex [facility] 500 mg 500 mg 500 mg Medical tablet,jeane tablet,jeane tablet,del yed release yed release ayed Take 1 Take 1 release tablet tablet Take 1 every 8 every 8 tablet hours by hours by every 8 oral route oral route hours by for 30 for 30 oral route days. days. for 30 days. divalproex divalproex No divalproex [facility] ER 500 mg ER 500 mg ER 500 mg Medical tablet,exte tablet,exte tablet,ext nded nded ended release 24 release 24 release 24 hr hr hr ferrous ferrous No 1 Q1D ferrous [facility] sulfate 325 sulfate 325 sulfate Medical mg (65 mg mg (65 mg 325 mg (65 iron) iron) mg iron) tablet Take tablet Take tablet 1 tablet 1 tablet Take 1 every day every day tablet by oral by oral every day route. route. by oral route. fluticasone fluticasone No fluticason [facility] propionate propionate e Med ical 50 50 propionate mcg/actuati mcg/actuati 50 on nasal on nasal mcg/actuat spray,suspe spray,suspe ion nasal nsion [place] nsion [place] spray,susp 1 spray 1 spray ension every day every day [place] 1 by nasal by nasal spray route. route. every day by nasal route. furosemide furosemide No furosemide [facility] 20 mg 20 mg 20 mg Medical tablet tablet tablet gabapentin gabapentin No gabapentin [facility] 300 mg [...] oral day by route. route. oral route. levalbutero levalbutero No levalbuter [facility] l 1.25 mg/3 l 1.25 mg/3 ol 1.25 Medical mL solution mL solution mg/3 mL for for solution nebulizatio nebulizatio for n n nebulizati on lisinopril lisinopril No lisinopril [facility] 10 mg [...] unit/gram topical topical topical cream cream cream potassium potassium No potassium [facility] chloride ER chloride ER chloride Medical 10 mEq 10 mEq ER 10 mEq tablet,exte tablet,exte tablet,ext nded nded ended release(par release(par release(pa t/cryst) t/cryst) rt/cryst) prednisone prednisone No prednisone [facility] 20 mg 20 mg 20 mg Medical tablet tablet tablet pregabalin pregabalin No pregabalin [facility] 100 mg 100 mg 100 mg Medical capsule capsule capsule Take 1 Take 1 Take 1 capsule 3 capsule 3 capsule 3 times a day times a day times a by oral by oral day by route for route for oral route 30 days. 30 days. for 30 days. pregabalin pregabalin No pregabalin [facility] 75 mg 75 mg 75 mg Medical capsule capsule capsule Take 1 Take 1 Take 1 capsule 3 capsule 3 capsule 3 times a day times a day times a by oral by oral day by route for route for oral route 30 days. 30 days. for 30 days. Probiotic Probiotic No Probiotic [facility] )actobacill )actobacill )actobacil Medical [facility] combination combination combinatio no 4) no [...] oral route days. days. for 30 days. aspirin 81 aspirin 81 No 1 Q1D [...] route. route. route. buspirone buspirone No 1 BID buspirone [facility] 10 mg 10 mg 10 mg Medical tablet Take tablet Take tablet 1 tablet 1 tablet Take 1 twice a day twice a day tablet by oral by oral twice a route for route for day by [...] every day route. route. by oral route. diclofenac diclofenac No diclofenac [facility] 1 % topical 1 % topical 1 % M edical gel gel topical gel diclofenac diclofenac No diclofenac [facility] 3 % topical 3 % topical 3 % M edical gel gel topical gel divalproex divalproex No divalproex [facility] ER 500 mg ER 500 mg ER 500 mg Medical tablet,exte tablet,exte tablet,ext nded nded ended release 24 release 24 release 24 hr hr hr ferrous ferrous No 1 Q1D ferrous [facility] sulfate 325 sulfate 325 sulfate Medical mg (65 mg mg (65 mg 325 mg (65 iron) iron) mg iron) tablet Take tablet Take tablet 1 tablet 1 tablet Take 1 every day every day tablet by oral by oral every day route. route. by oral route. fluticasone fluticasone No fluticason [facility] propionate propionate e Med ical 50 50 propionate mcg/actuati mcg/actuati 50 on nasal on nasal mcg/actuat spray,suspe spray,suspe ion nasal nsion [place] nsion [place] spray,susp 1 spray 1 spray ension every day every day [place] 1 by nasal by nasal spray route. route. every day by nasal route. furosemide furosemide No furosemide [facility] 20 mg 20 mg 20 mg Medical tablet tablet tablet ibuprofen ibuprofen No 1 Q8H ibuprofen [facility] [...] oral day by route. route. oral route. levalbutero levalbutero No levalbuter [facility] l 1.25 mg/3 l 1.25 mg/3 ol 1.25 Medical mL solution mL solution mg/3 mL for for solution nebulizatio nebulizatio for n n nebulizati on lorazepam lorazepam No lorazepam [facility] 0.5 mg [...] for constipatio constipatio constipati n n on potassium potassium No 1 Q1D potassium [facility] chloride ER chloride ER chloride Medical 10 mEq 10 mEq ER 10 mEq tablet,exte tablet,exte tablet,ext nded nded ended release(par release(par release(pa t/cryst) t/cryst) rt/cryst) Take 1 Take 1 Take 1 tablet tablet tablet every day every day every day by oral by oral by oral route for route for route for 30 days. 30 days. 30 days. prednisone prednisone No 1mg Q1D prednisone [facility] 20 mg 20 mg 20 mg Medical tablet Take tablet Take tablet 1 mg every 1 mg every Take 1 mg day by oral day by oral every day route for route for by oral 14 days. 14 days. route for 14 days. pregabalin pregabalin No pregabalin [facility] 100 mg 100 mg 100 mg Medical capsule capsule capsule Take 1 Take 1 Take 1 capsule 3 capsule 3 capsule 3 times a day times a day times a by oral by oral day by route for route for oral route 30 days. 30 days. for 30 days. Probiotic Probiotic No Probiotic [facility] )actobacill )actobacill )actobacil Medical [facility] combination combination combinatio no 4) no [...] oral route days. days. for 30 days. aspirin 81 aspirin 81 No 1 Q1D [...] buspirone buspirone No 1 TID buspirone [facility] 10 mg 10 mg 10 mg Medical tablet Take tablet Take tablet [...] every day route. route. by oral route. diclofenac diclofenac No diclofenac [facility] 1 % topical 1 % topical 1 % M edical gel gel topical gel divalproex divalproex No divalproex [facility] ER 500 mg ER 500 mg ER 500 mg Medical tablet,exte tablet,exte tablet,ext nded nded ended release 24 release 24 release 24 hr hr hr ferrous ferrous No 1 Q1D ferrous [facility] sulfate 325 sulfate 325 sulfate Medical mg (65 mg mg (65 mg 325 mg (65 iron) iron) mg iron) tablet Take tablet Take tablet 1 tablet 1 tablet Take 1 every day every day tablet by oral by oral every day route. route. by oral route. fluticasone fluticasone No fluticason [facility] propionate propionate e Med ical 50 50 propionate mcg/actuati mcg/actuati 50 on nasal on nasal mcg/actuat spray,suspe spray,suspe ion nasal nsion [place] nsion [place] spray,susp 1 spray 1 spray ension every day every day [place] 1 by nasal by nasal spray route. route. every day by nasal route. ibuprofen ibuprofen No 1 Q8H ibuprofen [...] oral day by route. route. oral route. lorazepam lorazepam No lorazepam [facility] 0.5 mg [...] for constipatio constipatio constipati n n on potassium potassium No 1 Q1D potassium [facility] chloride ER chloride ER chloride Medical 10 mEq 10 mEq ER 10 mEq tablet,exte tablet,exte tablet,ext nded nded ended release(par release(par release(pa t/cryst) t/cryst) rt/cryst) Take 1 Take 1 Take 1 tablet tablet tablet every day every day every day by oral by oral by oral route for route for route for 30 days. 30 days. 30 days. prednisone prednisone No 1mg Q1D prednisone [facility] 20 mg 20 mg 20 mg Medical tablet Take tablet Take tablet 1 mg every 1 mg every Take 1 mg day by oral day by oral every day route for route for by oral 14 days. 14 days. route for 14 days. pregabalin pregabalin No pregabalin [facility] 100 mg 100 mg 100 mg Medical capsule capsule capsule Take 1 Take 1 Take 1 capsule 3 capsule 3 capsule 3 times a day times a day times a by oral by oral day by route for route for oral route 30 days. 30 days. for 30 days. Probiotic Probiotic No Probiotic [facility] )actobacill )actobacill )actobacil Medical [facility] combination combination combinatio no 4) no [...] oral route days. days. for 30 days. aspirin 81 aspirin 81 No 1 Q1D [...] buspirone buspirone No 1 TID buspirone [facility] 10 mg 10 mg 10 mg Medical tablet Take tablet Take tablet [...] every day route. route. by oral route. diclofenac diclofenac No diclofenac [facility] 1 % topical 1 % topical 1 % M edical gel gel topical gel divalproex divalproex No divalproex [facility] ER 500 mg ER 500 mg ER 500 mg Medical tablet,exte tablet,exte tablet,ext nded nded ended release 24 release 24 release 24 hr hr hr ferrous ferrous No 1 Q1D ferrous [facility] sulfate 325 sulfate 325 sulfate Medical mg (65 mg mg (65 mg 325 mg (65 iron) iron) mg iron) tablet Take tablet Take tablet 1 tablet 1 tablet Take 1 every day every day tablet by oral by oral every day route. route. by oral route. fluticasone fluticasone No fluticason [facility] propionate propionate e Med ical 50 50 propionate mcg/actuati mcg/actuati 50 on nasal on nasal mcg/actuat spray,suspe spray,suspe ion nasal nsion [place] nsion [place] spray,susp 1 spray 1 spray ension every day every day [place] 1 by nasal by nasal spray route. route. every day by nasal route. furosemide furosemide No 1 Q1D furosemide [facility] 40 mg 40 mg 40 mg Medical tablet Take tablet Take tablet 1 tablet 1 tablet Take 1 every day every day tablet by oral by oral every day route. route. by oral route. ibuprofen ibuprofen No 1 Q8H [...] oral day by route. route. oral route. lorazepam lorazepam No lorazepam [facility] 0.5 mg 0.5 mg 0.5 mg Medical tablet Take tablet Take tablet 1 tablet 1 tablet Take 1 every 12 every 12 tablet hours by hours by every 12 oral route oral route hours by for 30 for 30 oral route days. days. for 30 days. Lyrica 100 Lyrica 100 No 1capsul TID Lyrica 100 [facility] mg capsule mg capsule e(s) mg capsule Medical Take 1 Take 1 Take 1 capsule 3 capsule 3 capsule 3 times a day times a day times a by oral by oral day by route for route for oral route 30 days. 30 days. for 30 days. magnesium magnesium No magnesium [facility] oxide 400 oxide 400 oxide 400 Medical mg (241.3 mg (241.3 mg (241.3 mg mg mg magnesium) magnesium) magnesium) tablet 1 tablet 1 tablet 1 ablet ablet ablet orally orally orally daily as daily as daily as needed for needed for needed for constipatio constipatio constipati n n on potassium potassium No 1 Q1D potassium [facility] chloride ER chloride ER chloride Medical 10 mEq 10 mEq ER 10 mEq tablet,exte tablet,exte tablet,ext nded nded ended release(par release(par release(pa t/cryst) t/cryst) rt/cryst) Take 1 Take 1 Take 1 tablet tablet tablet every day every day every day by oral by oral by oral route for route for route for 30 days. 30 days. 30 days. prednisone prednisone No 1mg Q1D prednisone [facility] 20 mg 20 mg 20 mg Medical tablet Take tablet Take tablet 1 mg every 1 mg every Take 1 mg day by oral day by oral every day route for route for by oral 14 days. 14 days. route for 14 days. Probiotic Probiotic No Probiotic [facility] )actobacill )actobacill )actobacil Medical [facility] combination combination combinatio no 4) no [...] oral route days. days. for 30 days. aspirin 81 aspirin 81 No 1 Q1D [...] buspirone buspirone No 1 TID buspirone [facility] 10 mg 10 mg 10 mg Medical tablet Take tablet Take tablet [...] every day route. route. by oral route. diclofenac diclofenac No diclofenac [facility] 1 % topical 1 % topical 1 % M edical gel gel topical gel divalproex divalproex No divalproex [facility] ER 500 mg ER 500 mg ER 500 mg Medical tablet,exte tablet,exte tablet,ext nded nded ended release 24 release 24 release 24 hr hr hr ferrous ferrous No 1 Q1D ferrous [facility] sulfate 325 sulfate 325 sulfate Medical mg (65 mg mg (65 mg 325 mg (65 iron) iron) mg iron) tablet Take tablet Take tablet 1 tablet 1 tablet Take 1 every day every day tablet by oral by oral every day route. route. by oral route. fluticasone fluticasone No fluticason [facility] propionate propionate e Med ical 50 50 propionate mcg/actuati mcg/actuati 50 on nasal on nasal mcg/actuat spray,suspe spray,suspe ion nasal nsion [place] nsion [place] spray,susp 1 spray 1 spray ension every day every day [place] 1 by nasal by nasal spray route. route. every day by nasal route. furosemide furosemide No 1 Q1D furosemide [facility] 40 mg 40 mg 40 mg Medical tablet Take tablet Take tablet 1 tablet 1 tablet Take 1 every day every day tablet by oral by oral every day route. route. by oral route. ibuprofen ibuprofen No 1 Q8H [...] oral day by route. route. oral route. lorazepam lorazepam No lorazepam [facility] 0.5 mg 0.5 mg 0.5 mg Medical tablet Take tablet Take tablet 1 tablet 1 tablet Take 1 every 12 every 12 tablet hours by hours by every 12 oral route oral route hours by for 30 for 30 oral route days. days. for 30 days. Lyrica 100 Lyrica 100 No 1capsul TID Lyrica 100 [facility] mg capsule mg capsule e(s) mg capsule Medical Take 1 Take 1 Take 1 capsule 3 capsule 3 capsule 3 times a day times a day times a by oral by oral day by route for route for oral route 30 days. 30 days. for 30 days. magnesium magnesium No magnesium [facility] oxide 400 oxide 400 oxide 400 Medical mg (241.3 mg (241.3 mg (241.3 mg mg mg magnesium) magnesium) magnesium) tablet 1 tablet 1 tablet 1 ablet ablet ablet orally orally orally daily as daily as daily as needed for needed for needed for constipatio constipatio constipati n n on potassium potassium No 1 Q1D potassium [facility] chloride ER chloride ER chloride Medical 10 mEq 10 mEq ER 10 mEq tablet,exte tablet,exte tablet,ext nded nded ended release(par release(par release(pa t/cryst) t/cryst) rt/cryst) Take 1 Take 1 Take 1 tablet tablet tablet every day every day every day by oral by oral by oral route for route for route for 30 days. 30 days. 30 days. Probiotic Probiotic No Probiotic [facility] )actobacill )actobacill )actobacil Medical [facility] combination combination combinatio no 4) no [...] days. for 30 days. acetaminoph acetaminoph No 1 Q8H acetaminop [facility] en 300 en 300 hen 300 Medical mg-codeine mg-codeine mg-codeine 60 mg 60 mg 60 mg tablet Take tablet Take tablet 1 tablet 1 tablet Take 1 every 8 every 8 tablet hours by hours by every 8 oral route oral route hours by for 30 for 30 oral route days. days. for 30 days. Advair Advair No 1puff(s BID Advair [facility] Diskus 250 Diskus 250 ) Diskus 250 Medical mcg-50 mcg-50 mcg-50 mcg/dose mcg/dose mcg/dose powder for powder for powder for inhalation inhalation inhalation Inhale 1 Inhale 1 Inhale 1 puff twice puff twice puff twice a day by a day by a day by inhalation inhalation inhalation route. route. route. aspirin 81 aspirin 81 No 1 Q1D [...] buspirone buspirone No 1 TID buspirone [facility] 10 mg 10 mg 10 mg Medical tablet Take tablet Take tablet [...] every day route. route. by oral route. diclofenac diclofenac No diclofenac [facility] 1 % topical 1 % topical 1 % M edical gel gel topical gel divalproex divalproex No divalproex [facility] ER 500 mg ER 500 mg ER 500 mg Medical tablet,exte tablet,exte tablet,ext nded nded ended release 24 release 24 release 24 hr hr hr ferrous ferrous No 1 Q1D ferrous [facility] sulfate 325 sulfate 325 sulfate Medical mg (65 mg mg (65 mg 325 mg (65 iron) iron) mg iron) tablet Take tablet Take tablet 1 tablet 1 tablet Take 1 every day every day tablet by oral by oral every day route. route. by oral route. fluticasone fluticasone No fluticason [facility] propionate propionate e Med ical 50 50 propionate mcg/actuati mcg/actuati 50 on nasal on nasal mcg/actuat spray,suspe spray,suspe ion nasal nsion [place] nsion [place] spray,susp 1 spray 1 spray ension every day every day [place] 1 by nasal by nasal spray route. route. every day by nasal route. albuterol albuterol No 3mL Q6H albuterol [facility] [...] nebulizati needed. needed. on route as needed. furosemide furosemide No 1 Q1D furosemide [facility] 40 mg 40 mg 40 mg Medical tablet Take tablet Take tablet 1 tablet 1 tablet Take 1 every day every day tablet by oral by oral every day route. route. by oral route. ibuprofen ibuprofen No 1 Q8H ibuprofen [facility] 600 mg 600 mg 600 mg Medical tablet Take tablet Take tablet 1 tablet 1 tablet Take 1 every 8 every 8 tablet hours by hours by every 8 oral route oral route hours by for 30 for 30 oral route days. days. for 30 days. lactulose lactulose No 30mL BID lactulose [facility] 20 gram/30 20 gram/30 20 gram/30 Medical mL oral mL oral mL oral solution solution solution Take 30 mL Take 30 mL Take 30 mL twice a day twice a day twice a by oral by oral day by route. route. oral route. lorazepam lorazepam No lorazepam [facility] 0.5 mg 0.5 mg 0.5 mg Medical tablet Take tablet Take tablet 1 tablet 1 tablet Take 1 every 12 every 12 tablet hours by hours by every 12 oral route oral route hours by for 30 for 30 oral route days. days. for 30 days. Lyrica 100 Lyrica 100 No 1capsul TID Lyrica 100 [facility] mg capsule mg capsule e(s) mg capsule Medical Take 1 Take 1 Take 1 capsule 3 capsule 3 capsule 3 times a day times a day times a by oral by oral day by route for route for oral route 30 days. 30 days. for 30 days. magnesium magnesium No magnesium [facility] oxide 400 oxide 400 oxide 400 Medical mg (241.3 mg (241.3 mg (241.3 mg mg mg magnesium) magnesium) magnesium) tablet 1 tablet 1 tablet 1 ablet ablet ablet orally orally orally daily as daily as daily as needed for needed for needed for constipatio constipatio constipati n n on potassium potassium No 1 Q1D potassium [facility] chloride ER chloride ER chloride Medical 10 mEq 10 mEq ER 10 mEq tablet,exte tablet,exte tablet,ext nded nded ended release(par release(par release(pa t/cryst) t/cryst) rt/cryst) Take 1 Take 1 Take 1 tablet tablet tablet every day every day every day by oral by oral by oral route for route for route for 30 days. 30 days. 30 days. Probiotic Probiotic No Probiotic [facility] )actobacill )actobacill )actobacil Medical [facility] combination combination combinatio no 4) no [...] twice a day a day a day aspirin 81 aspirin 81 No 1 Q1D aspirin 81 [facility] mg mg mg Medical tablet,jeane tablet,jeane tablet,del yed release yed release ayed Take 1 Take 1 release tablet tablet Take 1 every day every day tablet by oral by oral every day route. route. by oral route. quetiapine quetiapine No quetiapine [facility] 400 mg [...] a pain once day day a day atorvastati atorvastati No atorvastat [facility] n 10 [...] rectal rectal by rectal route. route. route. acetaminoph acetaminoph No 1 Q8H acetaminop [facility] en 300 en 300 hen 300 Medical mg-codeine mg-codeine mg-codeine 60 mg 60 mg 60 mg tablet Take tablet Take tablet 1 tablet 1 tablet Take 1 every 8 every 8 tablet hours by hours by every 8 oral route oral route hours by for 30 for 30 oral route days. days. for 30 days. Advair Advair No 1puff(s BID Advair [facility] Diskus 250 Diskus 250 ) Diskus 250 Medical mcg-50 mcg-50 mcg-50 mcg/dose mcg/dose mcg/dose powder for powder for powder for inhalation inhalation inhalation Inhale 1 Inhale 1 Inhale 1 puff twice puff twice puff twice a day by a day by a day by inhalation inhalation inhalation route. route. route. aspirin 81 aspirin 81 No 1 Q1D aspirin 81 [facility] mg mg mg Medical tablet,jeane tablet,jeane tablet,del yed release yed release ayed Take 1 Take 1 release tablet tablet Take 1 every day every day tablet by oral by oral every day route. route. by oral route. buspirone buspirone No 1 TID buspirone [facility] 15 mg 15 mg 15 mg Medical tablet Take tablet Take tablet 1 tablet 3 1 tablet 3 Take 1 times a day times a day tablet 3 by oral by oral times a route. route. day by oral route. atorvastati atorvastati No atorvastat [...] buspirone buspirone No 1 TID buspirone [facility] 10 mg 10 mg 10 mg Medical tablet Take tablet Take tablet [...] every day route. route. by oral route. diclofenac diclofenac No diclofenac [facility] 1 % topical 1 % topical 1 % M edical gel gel topical gel divalproex divalproex No divalproex [facility] ER 500 mg ER 500 mg ER 500 mg Medical tablet,exte tablet,exte tablet,ext nded nded ended release 24 release 24 release 24 hr hr hr ferrous ferrous No 1 Q1D ferrous [facility] sulfate 325 sulfate 325 sulfate Medical mg (65 mg mg (65 mg 325 mg (65 iron) iron) mg iron) tablet Take tablet Take tablet 1 tablet 1 tablet Take 1 every day every day tablet by oral by oral every day route. route. by oral route. fluticasone fluticasone No fluticason [facility] propionate propionate e Med ical 50 50 propionate mcg/actuati mcg/actuati 50 on nasal on nasal mcg/actuat spray,suspe spray,suspe ion nasal nsion [place] nsion [place] spray,susp 1 spray 1 spray ension every day every day [place] 1 by nasal by nasal spray route. route. every day by nasal route. furosemide furosemide No 1 Q1D furosemide [facility] 40 mg 40 mg 40 mg Medical tablet Take tablet Take tablet 1 tablet 1 tablet Take 1 every day every day tablet by oral by oral every day route. route. by oral route. ibuprofen ibuprofen No 1 Q8H ibuprofen [facility] 600 mg 600 mg 600 mg Medical tablet Take tablet Take tablet 1 tablet 1 tablet Take 1 every 8 every 8 tablet hours by hours by every 8 oral route oral route hours by for 30 for 30 oral route days. days. for 30 days. colchicine colchicine No colchicine [facility] 0.6 mg 0.6 mg 0.6 mg Medical tablet tablet tablet lactulose lactulose No 30mL BID lactulose [facility] 20 gram/30 20 gram/30 20 gram/30 Medical mL oral mL oral mL oral solution solution solution Take 30 mL Take 30 mL Take 30 mL twice a day twice a day twice a by oral by oral day by route. route. oral route. lorazepam lorazepam No lorazepam [facility] 0.5 mg 0.5 mg 0.5 mg Medical tablet Take tablet Take tablet 1 tablet 1 tablet Take 1 every 12 every 12 tablet hours by hours by every 12 oral route oral route hours by for 30 for 30 oral route days. days. for 30 days. Lyrica 100 Lyrica 100 No 1capsul TID Lyrica 100 [facility] mg capsule mg capsule e(s) mg capsule Medical Take 1 Take 1 Take 1 capsule 3 capsule 3 capsule 3 times a day times a day times a by oral by oral day by route for route for oral route 30 days. 30 days. for 30 days. magnesium magnesium No magnesium [facility] oxide 400 oxide 400 oxide 400 Medical mg (241.3 mg (241.3 mg (241.3 mg mg mg magnesium) magnesium) magnesium) tablet 1 tablet 1 tablet 1 ablet ablet ablet orally orally orally daily as daily as daily as needed for needed for needed for constipatio constipatio constipati n n on potassium potassium No 1 Q1D potassium [facility] chloride ER chloride ER chloride Medical 10 mEq 10 mEq ER 10 mEq tablet,exte tablet,exte tablet,ext nded nded ended release(par release(par release(pa t/cryst) t/cryst) rt/cryst) Take 1 Take 1 Take 1 tablet tablet tablet every day every day every day by oral by oral by oral route for route for route for 30 days. 30 days. 30 days. Probiotic Probiotic No Probiotic [facility] )actobacill )actobacill )actobacil Medical [facility] combination combination combinatio no 4) no [...] a day a day times a day Complete Complete No 1 Q1D Complete [place] via Multivitami Multivitami Multivitam Medical n Adult 50 n Adult 50 in Adult Plus 0.4 Plus 0.4 50 Plus mg-300 mg-300 0.4 mg-300 mcg-250 mcg mcg-250 mcg mcg-250 tablet Take tablet Take mcg tablet 1 tablet 1 tablet Take 1 every day every day tablet by oral by oral every day route. route. by oral route. Tylenol 325 Tylenol 325 No Tylenol [facility] mg tablet mg tablet 325 mg Med ical amt 2 amt 2 tablet amt tabets; tabets; 2 tabets; oral/ give oral/ give oral/ give prn for prn for prn for pain once a pain once a pain once day day a day divalproex divalproex No divalproex [facility] 500 mg [...] 30 days. 30 days. for 30 days. acetaminoph acetaminoph No 1 Q8H acetaminop [facility] en 300 en 300 hen 300 Medical mg-codeine mg-codeine mg-codeine 60 mg 60 mg 60 mg tablet Take tablet Take tablet 1 tablet 1 tablet Take 1 every 8 every 8 tablet hours by hours by every 8 oral route oral route hours by for 30 for 30 oral route days. days. for 30 days. Advair Advair No 1puff(s BID Advair [facility] Diskus 250 Diskus 250 ) Diskus 250 Medical mcg-50 mcg-50 mcg-50 mcg/dose mcg/dose mcg/dose powder for powder for powder for inhalation inhalation inhalation Inhale 1 Inhale 1 Inhale 1 puff twice puff twice puff twice a day by a day by a day by inhalation inhalation inhalation route. route. route. aspirin 81 aspirin 81 No 1 Q1D [...] buspirone buspirone No 1 TID buspirone [facility] 10 mg 10 mg 10 mg Medical tablet Take tablet Take tablet 1 tablet 3 1 tablet 3 Take 1 times a day times a day tablet 3 by oral by oral times a route for route for day by 30 days. 30 days. oral route for 30 days. ibuprofen ibuprofen No 1 [...] every day route. route. by oral route. diclofenac diclofenac No diclofenac [facility] 1 % topical 1 % topical 1 % M edical gel gel topical gel divalproex divalproex No divalproex [facility] ER 500 mg ER 500 mg ER 500 mg Medical tablet,exte tablet,exte tablet,ext nded nded ended release 24 release 24 release 24 hr hr hr ferrous ferrous No 1 Q1D ferrous [facility] sulfate 325 sulfate 325 sulfate Medical mg (65 mg mg (65 mg 325 mg (65 iron) iron) mg iron) tablet Take tablet Take tablet 1 tablet 1 tablet Take 1 every day every day tablet by oral by oral every day route. route. by oral route. fluticasone fluticasone No fluticason [facility] propionate propionate e Med ical 50 50 propionate mcg/actuati mcg/actuati 50 on nasal on nasal mcg/actuat spray,suspe spray,suspe ion nasal nsion [place] nsion [place] spray,susp 1 spray 1 spray ension every day every day [place] 1 by nasal by nasal spray route. route. every day by nasal route. furosemide furosemide No 1 Q1D furosemide [facility] 40 mg 40 mg 40 mg Medical tablet Take tablet Take tablet 1 tablet 1 tablet Take 1 every day every day tablet by oral by oral every day route. route. by oral route. ibuprofen ibuprofen No 1 Q8H ibuprofen [facility] 600 mg 600 mg 600 mg Medical tablet Take tablet Take tablet 1 tablet 1 tablet Take 1 every 8 every 8 tablet hours by hours by every 8 oral route oral route hours by for 30 for 30 oral route days. days. for 30 days. lactulose lactulose No 30mL BID lactulose [facility] 20 gram/30 20 gram/30 20 gram/30 Medical mL oral mL oral mL oral solution solution solution Take 30 mL Take 30 mL Take 30 mL twice a day twice a day twice a by oral by oral day by route. route. oral route. Lyrica 100 Lyrica 100 No 1capsul TID Lyrica 100 [facility] mg capsule mg capsule e(s) mg capsule Medical Take 1 Take 1 Take 1 capsule 3 capsule 3 capsule 3 times a day times a day times a by oral by oral day by route for route for oral route 30 days. 30 days. for 30 days. magnesium magnesium No magnesium [facility] oxide 400 oxide 400 oxide 400 Medical mg (241.3 mg (241.3 mg (241.3 mg mg mg magnesium) magnesium) magnesium) tablet 1 tablet 1 tablet 1 ablet ablet ablet orally orally orally daily as daily as daily as needed for needed for needed for constipatio constipatio constipati n n on No Jesus 7 [facility] gram-7 gram-7 gram-7 [...] in 8 water water oz of water potassium potassium No 1 Q1D potassium [facility] chloride ER chloride ER chloride Medical 10 mEq 10 mEq ER 10 mEq tablet,exte tablet,exte tablet,ext nded nded ended release(par release(par release(pa t/cryst) t/cryst) rt/cryst) Take 1 Take 1 Take 1 tablet tablet tablet every day every day every day by oral by oral by oral route for route for route for 30 days. 30 days. 30 days. Probiotic Probiotic No Probiotic [facility] )actobacill )actobacill )actobacil [facility]ael combination combination combinatio no 4) no [...] a pain once day day a day lactulose lactulose No lactulose [facility] 10 gram/15 [...] No Probiotic [facility] )actobacill )actobacill )actobacil Medical [facility] combination combination combinatio no 4) no [...] No Probiotic [facility] )actobacill )actobacill )actobacil Medical [facility] combination combination combinatio no 4) no [...] for constipatio constipatio constipati n n on [facility] No [facility] (honey) (honey) (honey) Medica l [...] No Probiotic [facility] )actobacill )actobacill )actobacil Medical [facility] combination combination combinatio no 4) no [...] No Probiotic [facility] )actobacill )actobacill )actobacil Medical [facility] combination combination combinatio no 4) no [...] for constipatio constipatio constipati n n on [facility] No [facility] (honey) (honey) (honey) Medica l [...] No Probiotic [facility] )actobacill )actobacill )actobacil Medical [facility] combination combination combinatio no 4) no [...] for constipatio constipatio constipati n n on [facility] ([facility]) (honey) Medica l [...] No Probiotic [facility] )actobacill )actobacill )actobacil Medical [facility] combination combination combinatio no 4) no [...] No Probiotic [facility] )actobacill )actobacill )actobacil Medical [facility] combination combination combinatio no 4) no [...] for constipatio constipatio constipati n n on [facility] No [facility] (honey) (honey) (honey) Medica l [...] No Probiotic [facility] )actobacill )actobacill )actobacil Medical [facility] combination combination combinatio no 4) no [...] for constipatio constipatio constipati n n on [facility] No [facility] (honey) (honey) (honey) Medica l [...] No Probiotic [facility] )actobacill )actobacill )actobacil Medical [facility] combination combination combinatio no 4) no [...] for constipatio constipatio constipati n n [facility] (honey) (honey) (honey) Medica l [...] Probiotic No Probiotic [facility] )actobacill )actobacill )actobacil [facility] combination combination combinatio no 4) no [...] No Probiotic [facility] )actobacill )actobacill )actobacil Medical [facility] combination combination combinatio no 4) no [...] for constipatio constipatio constipati n n on [facility] No [facility] (honey) (honey) (honey) Medica l [...] Probiotic No Probiotic [facility] )actobacill )actobacill )actobacil [facility] combination combination combinatio no 4) no [...] No Probiotic [facility] )actobacill )actobacill )actobacil Medical [facility] combination combination combinatio no 4) no [...] No Probiotic [facility] )actobacill )actobacill )actobacil Medical [facility] combination combination combinatio no 4) no [...] No Probiotic [facility] )actobacill )actobacill )actobacil Medical [facility] combination combination combinatio no 4) no [...] No Probiotic [facility] )actobacill )actobacill )actobacil Medical [facility] combination combination combinatio no 4) no [...] No Probiotic [facility] )actobacill )actobacill )actobacil Medical [facility] combination combination combinatio no 4) no [...] Yes [place] 1 tablet Comm on [facility] Lisinopril Lisinopril Yes [facility] [place] 1 tablet Common [facility] Lipitor Lipitor Yes [facility] [place] 1 tablet Co mmon [facility] Vital Signs Vital Name Observation Time Observation Value Comments Source BP Diastolic 2023-01-26 00:00:00 83 mm[Hg] [facility] Height 2023-01-26 00:00:00 66 [in_i] [facility] BMI (Body Mass 2023-01-26 00:00:00 28.9 kg/m2 [facility] Medical Index) BP Systolic 2023-01-26 00:00:00 135 mm[Hg] [facility] Body Weight 2023-01-26 00:00:00 2869 [oz_av] [facility] BP Diastolic 2022-12-22 00:00:00 64 mm[Hg] [facility] Height 2022-12-22 00:00:00 66 [in_i] [facility] BMI (Body Mass 2022-12-22 00:00:00 28.9 kg/m2 [facility] Medical Index) BP Systolic 2022-12-22 00:00:00 127 mm[Hg] [facility] Body Weight 2022-12-22 00:00:00 2869 [oz_av] [facility] BP Diastolic 2022-12-17 00:00:00 60 mm[Hg] [facility] Height 2022-12-17 00:00:00 66 [in_i] [facility] BMI (Body Mass 2022-12-17 00:00:00 28.9 kg/m2 [facility] Medical Index) BP Systolic 2022-12-17 00:00:00 121 mm[Hg] [facility] Body Weight 2022-12-17 00:00:00 2864 [oz_av] [facility] BP Diastolic 2022-12-15 00:00:00 68 mm[Hg] [facility] Height 2022-12-15 00:00:00 66 [in_i] [facility] BMI (Body Mass 2022-12-15 00:00:00 28.9 kg/m2 [facility] Medical Index) BP Systolic 2022-12-15 00:00:00 124 mm[Hg] [facility] Body Weight 2022-12-15 00:00:00 2864 [oz_av] [facility] BP Diastolic 2022-12-10 00:00:00 67 mm[Hg] [facility] Height 2022-12-10 00:00:00 66 [in_i] [facility] BMI (Body Mass 2022-12-10 00:00:00 28.9 kg/m2 [facility] Medical Index) BP Systolic 2022-12-10 00:00:00 125 mm[Hg] [facility] Body Weight 2022-12-10 00:00:00 2864 [oz_av] [facility] BP Diastolic 2022-12-07 00:00:00 60 mm[Hg] [facility] Height 2022-12-07 00:00:00 66 [in_i] [facility] BMI (Body Mass 2022-12-07 00:00:00 28[facility]9 [facility] BP Systolic 2022-12-07 00:00:00 121 mm[Hg] [facility] Body Weight 2022-12-07 00:00:00 2864 [oz_av] [facility] BP Diastolic 2022-11-26 00:00:00 70 mm[Hg] [facility] Height 2022-11-26 00:00:00 66 [in_i] [facility] BMI (Body Mass 2022-11-26 00:00:00 28.9 kg/m2 [facility] Medical Index) BP Systolic 2022-11-26 00:00:00 120 mm[Hg] [facility] Body Weight 2022-11-26 00:00:00 2864 [oz_av] [facility] Systolic blood 2022-11-25 17:25:00 141 mm[Hg] Univer sity of pressure [facility] Diastolic blood 2022-11-25 17:25:00 82 mm[Hg] Unive rsity of [facility] Heart rate 2022-11-25 17:25:00 83 /min [facility] Body temperature 2022-11-25 17:25:00 36.22 Vanessa [facility] Oxygen saturation in 2022-11-25 17:25:00 97 /min [facility] Arterial blood by [facility]ulse oximetry Branch Respiratory rate 2022-11-25 17:15:00 18 /min [facility] Body weight 2022-11-25 09:39:00 78.971 kg [facility] BMI 2022-11-25 09:39:00 23.61 kg/m2 [facility] BP Diastolic 2022-11-23 00:00:00 62 mm[Hg] [facility] Height 2022-11-23 00:00:00 66 [in_i] [facility] BP Systolic 2022-11-23 00:00:00 115 mm[Hg] [facility] Body Weight 2022-11-23 00:00:00 2864 [oz_av] [facility] BP Diastolic 2022-11-02 00:00:00 67 mm[Hg] [facility] Height 2022-11-02 00:00:00 66 [in_i] [facility] BMI (Body Mass 2022-11-02 00:00:00 27 kg/m2 [facility] Medical Index) BP Systolic 2022-11-02 00:00:00 99 mm[Hg] [facility] Body Weight 2022-11-02 00:00:00 2672 [oz_av] [facility] BP Diastolic 2022-10-19 00:00:00 70 mm[Hg] [facility] Height 2022-10-19 00:00:00 66 [in_i] [facility] BMI (Body Mass 2022-10-19 00:00:00 27 kg/m2 [facility] Medical Index) BP Systolic 2022-10-19 00:00:00 133 mm[Hg] [facility] Body Weight 2022-10-19 00:00:00 2672 [oz_av] [facility] BP Diastolic 2022-09-29 00:00:00 64 mm[Hg] [facility] Height 2022-09-29 00:00:00 66 [in_i] [facility] BMI (Body Mass 2022-09-29 00:00:00 27 kg/m2 [facility] BP Systolic 2022-09-29 00:00:00 114 mm[Hg] [facility] Body Weight 2022-09-29 00:00:00 2672 [oz_av] [facility] BP Diastolic 2022-09-21 00:00:00 89 mm[Hg] [facility] Height 2022-09-21 00:00:00 66 [in_i] [facility] BMI (Body Mass 2022-09-21 00:00:00 27 kg/m2 [facility] BP Systolic 2022-09-21 00:00:00 117 mm[Hg] [facility] Body Weight 2022-09-21 00:00:00 2672 [oz_av] [facility] BP Diastolic 2022-09-10 00:00:00 70 mm[Hg] [facility] Height 2022-09-10 00:00:00 66 [in_i] [facility] BMI (Body Mass 2022-09-10 00:00:00 27 kg/m2 [facility] BP Systolic 2022-09-10 00:00:00 123 mm[Hg] [facility] Body Weight 2022-09-10 00:00:00 2672 [oz_av] [facility] BP Diastolic 2022-08-24 00:00:00 77 mm[Hg] [facility] Height 2022-08-24 00:00:00 66 [in_i] [facility] BMI (Body Mass 2022-08-24 00:00:00 27 kg/m2 [facility] BP Systolic 2022-08-24 00:00:00 129 mm[Hg] [facility] Body Weight 2022-08-24 00:00:00 2678 [oz_av] [facility] BP Diastolic 2022-07-09 00:00:00 62 mm[Hg] [facility] Height 2022-07-09 00:00:00 66 [in_i] [facility] BMI (Body Mass 2022-07-09 00:00:00 26.5 kg/m2 [facility] Medical Index) BP Systolic 2022-07-09 00:00:00 125 mm[Hg] [facility] Body Weight 2022-07-09 00:00:00 2624 [oz_av] [facility] BP Diastolic 2022-07-06 00:00:00 72 mm[Hg] [facility] Height 2022-07-06 00:00:00 66 [in_i] [facility] BMI (Body Mass 2022-07-06 00:00:00 26.5 kg/m2 [facility] Medical Index) BP Systolic 2022-07-06 00:00:00 114 mm[Hg] [facility] Body Weight 2022-07-06 00:00:00 2624 [oz_av] [facility] BP Diastolic 2022-06-01 00:00:00 65 mm[Hg] [facility] Height 2022-06-01 00:00:00 66 [in_i] [facility] BMI (Body Mass 2022-06-01 00:00:00 25.8 kg/m2 [facility] Medical Index) BP Systolic 2022-06-01 00:00:00 120 mm[Hg] [facility] Body Weight 2022-06-01 00:00:00 2562 [oz_av] [facility] BP Diastolic 2022-05-07 00:00:00 76 mm[Hg] [facility] Height 2022-05-07 00:00:00 66 [in_i] [facility] BMI (Body Mass 2022-05-07 00:00:00 22 kg/m2 [facility] Medical Index) BP Systolic 2022-05-07 00:00:00 130 mm[Hg] [facility] Body Weight 2022-05-07 00:00:00 2180 [oz_av] [facility] BP Diastolic 2022 00:00:00 68 mm[Hg] [facility] Height 2022 00:00:00 66 [in_i] [facility] BMI (Body Mass 2022 00:00:00 23.8 kg/m2 [facility] BP Systolic 2022 00:00:00 148 mm[Hg] [facility] Body Weight 2022 00:00:00 2360 [oz_av] [facility] BP Diastolic 2022-04-06 00:00:00 72 mm[Hg] [facility] Height 2022-04-06 00:00:00 66 [in_i] [facility] BMI (Body Mass 2022-04-06 00:00:00 23.8 kg/m2 [facility] BP Systolic 2022-04-06 00:00:00 118 mm[Hg] [facility] Body Weight 2022-04-06 00:00:00 2360 [oz_av] [facility] BP Diastolic 2022-03-19 00:00:00 78 mm[Hg] [facility] Height 2022-03-19 00:00:00 66 [in_i] [facility] BMI (Body Mass 2022-03-19 00:00:00 23.8 kg/m2 [facility]) BP Systolic 2022-03-19 00:00:00 111 mm[Hg] [facility] Body Weight 2022-03-19 00:00:00 2360 [oz_av] [facility] BP Diastolic 2022-03-05 00:00:00 70 mm[Hg] [facility] Height 2022-03-05 00:00:00 66 [in_i] [facility] BMI (Body Mass 2022-03-05 00:00:00 23.8 kg/m2 [facility] BP Systolic 2022-03-05 00:00:00 116 mm[Hg] [facility] Body Weight 2022-03-05 00:00:00 2360 [oz_av] [facility] BP Diastolic 2022-03-04 00:00:00 74 mm[Hg] [facility] Height 2022-03-04 00:00:00 66 [in_i] [facility] BMI (Body Mass 2022-03-04 00:00:00 23.8 kg/m2 [facility] BP Systolic 2022-03-04 00:00:00 118 mm[Hg] [facility] Body Weight 2022-03-04 00:00:00 2360 [oz_av] [facility] BP Diastolic 2022-02-12 00:00:00 72 mm[Hg] [facility] Height 2022-02-12 00:00:00 66 [in_i] [facility] BMI (Body Mass 2022-02-12 00:00:00 23.8 kg/m2 [facility]) BP Systolic 2022-02-12 00:00:00 118 mm[Hg] [facility] Body Weight 2022-02-12 00:00:00 2360 [oz_av] [facility] BP Diastolic 2022-02-10 00:00:00 68 mm[Hg] [facility] Height 2022-02-10 00:00:00 66 [in_i] [facility] BMI (Body Mass 2022-02-10 00:00:00 23.9 kg/m2 [facility]) BP Systolic 2022-02-10 00:00:00 108 mm[Hg] [facility] Body Weight 2022-02-10 00:00:00 2368 [oz_av] [facility] BP Diastolic 2022-02-02 00:00:00 62 mm[Hg] [facility] BP Systolic 2022-02-02 00:00:00 125 mm[Hg] [facility] Body Weight 2022-02-02 00:00:00 2368 [oz_av] [facility] BP Diastolic 2022-01-29 00:00:00 74 mm[Hg] [facility] Height 2022-01-29 00:00:00 66 [in_i] [facility] BMI (Body Mass 2022-01-29 00:00:00 23.9 kg/m2 [facility]) BP Systolic 2022-01-29 00:00:00 128 mm[Hg] [facility] Body Weight 2022-01-29 00:00:00 2368 [oz_av] [facility] BP Diastolic 2022-01-19 00:00:00 75 mm[Hg] [facility] Height 2022-01-19 00:00:00 66 [in_i] [facility] BMI (Body Mass 2022-01-19 00:00:00 22.8 kg/m2 [facility] Medical Index) BP Systolic 2022-01-19 00:00:00 100 mm[Hg] [facility] Body Weight 2022-01-19 00:00:00 2258 [oz_av] [facility] BP Diastolic 2022-01-07 00:00:00 76 mm[Hg] [facility] Height 2022-01-07 00:00:00 66 [in_i] [facility] Meneses [facility] BMI (Body Mass 2022-01-07 00:00:00 22.8 kg/m2 [facility] Medical Index) BP Systolic 2022-01-07 00:00:00 116 mm[Hg] [facility] Body Weight 2022-01-07 00:00:00 2258 [oz_av] [facility] BP Diastolic 2021-12-31 00:00:00 72 mm[Hg] [facility] Height 2021-12-31 00:00:00 66 [in_i] [facility] BMI (Body Mass 2021-12-31 00:00:00 22.8 kg/m2 [facility] Medical Index) BP Systolic 2021-12-31 00:00:00 120 mm[Hg] [facility] Body Weight 2021-12-31 00:00:00 2256 [oz_av] [facility] Weight 2019-08-13 07:00:00 81.28 KG Height 2019-08-10 17:00:00 187.96 CM Procedures Procedure Date / Time Performing Clinician Source Performed PHOSPHORUS 2022-11-25 11:54:00 Jake suzy [facility] MAGNESIUM 2022-11-25 11:54:00 [facility] TROPONIN I 2022-11-25 11:54:00 Jake Adnan [facility] COMP. METABOLIC PANEL 2022-11-25 11:54:00 Jadyn Joseph [facility] ([id number]) Medical Branch CBC WITH DIFF 2022-11-25 11:54:00 [facility] N-TERMINAL PRO-BNP 2022-11-25 11:54:00 Jadyn Joseph [facility] YOUNG AURIS 2022-11-24 19:26:00 Sukh Vital [facility] SURVEILLANCE BY PCR Medical [facility] (INFECTION CONTROL PURPOSES) COVID-19 (MOLECULAR 2022-11-24 17:23:00 Jake [facility] TESTING [facility] NUCLEIC ACID AMPLIFICATION) TRANSTHORACIC ECHO (TTE) 2022-11-24 17:16:19 Candida Chau [facility] COMPLETE [facility] TROPONIN I 2022-11-24 14:25:00 [facility] THYROID STIMULATING 2022-11-24 14:25:00 Jake suzy [facility] HORMONE [facility] LIPID PANEL 2022-11-24 14:25:00 Jake suzy [facility] ([id number])(TOTAL Medical [place] CHOLESTEROL, TRIGLYCERIDES, HDL) GLYCOSYLATED HEMOGLOBIN 2022-11-24 14:25:00 Jake [facility] (A1C) [facility] LACTIC ACID WHOLE BLOOD 2022-11-24 12:26:00 Jake suzy [facility] XR CHEST 1 VW 2022-11-24 07:44:39 Jake suzy [facility] URINE DRUG (IMMUNOASSAY) 2022-11-24 06:01:00 Jadyn Joseph [facility] SCREEN URINALYSIS 2022-11-24 06:01:00 [facility] PNEUMOCOCCAL ANTIGEN 2022-11-24 06:01:00 Jadyn Joseph [facility] URINE CULTURE 2022-11-24 06:01:00 Jake suzy [facility] UREA NITROGEN, URINE 2022-11-24 06:01:00 Jadyn Joseph [facility] RANDOM [facility] SODIUM, URINE RANDOM 2022-11-24 06:01:00 Jake suzy [facility] PROTEIN CREAT RATIO 2022-11-24 06:01:00 Jadyn Joseph [facility] URINE RANDOM [facility] RESPIRATORY PANEL BY PCR 2022-11-24 05:25:00 Jadyn Joseph [facility] AC PANEL 21 + LACTIC 2022-11-24 05:24:00 Jadyn Joseph [facility] ACID Medical Branch PHOSPHORUS 2022-11-24 05:19:00 [facility] MAGNESIUM 2022-11-24 05:19:[facility] 2022-11-24 05:19[facility]22-11-24 05:[facility], Medical Branch GLUCOSE, BUN, CREATININE, CA) N-TERMINAL PRO-BNP 2022-11-24 05:19[facility] 2022-11-24 05:18[facility] [facility] PROCALCITONIN 2022-11-24 05:16:00 [facility] [id number] 2021-11-13 00:00:00 CHEZU [facility] [id number] 2021-11-02 00:00:00 CHEZU [facility] [id number] 2021-11-02 00:00:00 CHEZU [facility] [id number] 2021-11-02 00:00:00 CHEZU [facility] [id number] 2021-11-02 00:00:00 CHEZU [facility] [id number] 2021-11-02 00:00:00 CHEZU [facility] [id number] 2021-11-02 00:00:00 CHEZU [facility] [id number] 2021-11-02 00:00:00 DOMINIC [facility] [id number] 2021-10-28 00:00:00 ERICA [facility] Plan of Care Planned Activity Planned Date Details Comments Source Diagnostic Test Pending 2021-12-31 00:00:00 drug screen, 14 [facility] (detectimed), urine [code = drug screen, 14 drugs (detectimed), urine] Instructions [facility] Encounters Start End Encounter Admission Attending Care Care Encounter Source Date/Time Date/Time Type Type Clinicians Facility Department ID 2021-10-14 Outpatient Laura Arteaga [facility] [id number] 2 Common 11:22:12 [id number] [facility] 2021-10-14 Outpatient Laura Arteaga [facility] [id number] 2 Common 11:21:51 [id number] [facility] 2023-07-07 2023-07-07 Outpatient [facility]Tod PRIV PRIV [id number] [facility] 00:00:00 00:00:00 d_J [id number] Medica l 2023-07-01 2023-07-01 Outpatient [facility]Tod PRIV PRIV 239 [id number] [facility] 00:00:00 00:00:00 d_J [id number] Medica l 2023-07-01 2023-07-01 Outpatient [facility]Tod PRIV PRIV 239 [id number] [facility] 00:00:00 00:00:00 d_J [id number] Medica l 2023-06-27 2023-06-27 Outpatient [facility]Tod PRIV PRIV 239 [id number] [facility] 00:00:00 00:00:00 d_J [id number] Medica l 2023-06-27 2023-06-27 Outpatient [facility]_Tod PRIV PRIV 239 [id number] [facility] 00:00:00 00:00:00 d_J [id number] Medica l 2023-06-13 2023-06-13 Outpatient [facility]Tod PRIV PRIV 239 [id number] [facility] 00:00:00 00:00:00 d_J [id number] Medica l 2023-06-10 2023-06-10 Outpatient [facility]Tod PRIV PRIV 239 [id number] [facility] 00:00:00 00:00:00 d_J [id number] Medica l 2023-06-10 2023-06-10 Outpatient [facility]Tod PRIV PRIV 239 [id number] [facility] 00:00:00 00:00:00 d_J [id number] Medica l 2023-06-02 2023-06-02 Outpatient [facility]Tod PRIV PRIV 239 [id number] [facility] 00:00:00 00:00:00 d_J [id number] Medica l 2023-05-18 2023-05-18 Outpatient [facility]Tod PRIV PRIV 239 [id number] [facility] 00:00:00 00:00:00 d_J [id number] Medica l 2023-05-16 2023-05-16 Outpatient [facility]Tod PRIV PRIV 239 [id number] [facility] 00:00:00 00:00:00 d_J [id number] Medica l 2023-05-13 2023-05-13 Outpatient [facility]Tod PRIV PRIV 239 [id number] [facility] 00:00:00 00:00:00 d_J [id number] Medica l 2023-05-05 2023-05-05 Outpatient [facility]Tod PRIV PRIV 239 [id number] [facility] 00:00:00 00:00:00 d_J [id number] Medica l 2023-05-01 2023-05-01 Outpatient [facility]Tod PRIV PRIV 239 [id number] [facility] 00:00:00 00:00:00 d_J [id number] Medica l 2023-04-27 2023-04-27 Outpatient [facility]_Tod PRIV PRIV 239 [id number] [facility] 00:00:00 00:00:00 d_J [id number] Medica l 2023-04-22 2023-04-22 Outpatient [facility]Tod PRIV PRIV 239 [id number] [facility] 00:00:00 00:00:00 d_J [id number] Medica l 2023-04-22 2023-04-22 Outpatient [facility]_Tod PRIV PRIV 239 [id number] [facility] 00:00:00 00:00:00 d_J [id number] Medica l 2023-04-14 2023-04-14 Outpatient [facility]Tod PRIV PRIV 239 [id number] [facility] 00:00:00 00:00:00 d_J [id number] Medica l 2023-04-08 2023-04-08 Outpatient [facility]_Tod PRIV PRIV 239 [id number] [facility] 00:00:00 00:00:00 d_J [id number] Medica l 2023-04-04 2023-04-04 Outpatient [facility]_Tod PRIV PRIV 239 [id number] [facility] 00:00:00 00:00:00 d_J [id number] Medica l 2023-03-30 2023-03-30 Outpatient [facility]_Tod PRIV PRIV 239 [id number] [facility] 00:00:00 00:00:00 d_J [id number] Medica l 2023-03-29 2023-03-29 Outpatient [facility]_Tod PRIV PRIV 239 [id number] [facility] 00:00:00 00:00:00 d_J [id number] Medica l 2023-03-25 2023-03-25 Outpatient [facility]Tod PRIV PRIV 239 [id number] [facility] 00:00:00 00:00:00 d_J [id number] Medica l 2023-03-16 2023-03-16 Outpatient [facility]Tod PRIV PRIV 239 [id number] [facility] 00:00:00 00:00:00 d_J [id number] Medica l 2023-03-02 2023-03-02 Outpatient [facility]Tod PRIV PRIV 239 [id number] [facility] 00:00:00 00:00:00 d_J [id number] Medica l 2023-03-01 2023-03-01 Outpatient [facility]Tod PRIV PRIV 239 [id number] [facility] 00:00:00 00:00:00 d_J [id number] Medica l 2023-02-24 2023-02-24 Outpatient [facility]_Tod PRIV PRIV 239 [id number] [facility] 00:00:00 00:00:00 d_J [id number] Medica l 2023-02-23 2023-02-23 Outpatient [facility]_Tod PRIV PRIV 239 [id number] [facility] 00:00:00 00:00:00 d_J [id number] Medica l 2023-02-18 2023-02-18 Outpatient [facility]_Tod PRIV PRIV 239 [id number] [facility] 00:00:00 00:00:00 d_J [id number] Medica l 2023-02-18 2023-02-18 Outpatient [facility]Tod PRIV PRIV 239 [id number] [facility] 00:00:00 00:00:00 d_J [id number] Medica l 2023-02-10 2023-02-10 Outpatient [facility]Tod PRIV PRIV 239 [id number] [facility] 00:00:00 00:00:00 d_J [id number] Medica l 2023-02-10 2023-02-10 Outpatient [facility]_Tod PRIV PRIV 239 [id number] [facility] 00:00:00 00:00:00 d_J [id number] Medica l 2023-02-08 2023-02-08 Outpatient [facility]Tod PRIV PRIV 239 [id number] [facility] 00:00:00 00:00:00 d_J [id number] Medica l 2023-02-03 2023-02-03 Outpatient [facility]_Tod PRIV PRIV 239 [id number] [facility] 00:00:00 00:00:00 d_J [id number] Medica l 2023-01-27 2023-01-27 Outpatient [facility]_Tod PRIV PRIV 239 [id number] [facility] 00:00:00 00:00:00 d_J [id number] Medica l 2023-01-26 2023-01-26 Outpatient [facility]_Tod PRIV PRIV 239 [id number] [facility] 00:00:00 00:00:00 d_J [id number] Medica l 2023-01-26 2023-01-26 [facility] [id number] [facility] 00:00:00 00:00:00 WERNER Pearson: Health - Med ical [address] [address] , Ph. 2023-01-24 2023-01-24 Outpatient [facility]_Tod PRIV PRIV 239 [id number] [facility] 00:00:00 00:00:00 d_J [id number] Medica l 2023-01-20 2023-01-20 Outpatient GC[facility]_Tod PRIV PRIV 239 [id number] [facility] 00:00:00 00:00:00 d_J [id number] Medica l 2023-01-17 2023-01-17 Outpatient GC[facility]_Tod PRIV PRIV 239 [id number] [facility] 00:00:00 00:00:00 d_J [id number] Medica l 2023-01-17 2023-01-17 Outpatient GC[facility]_Tod PRIV PRIV 239 [id number] [facility] 00:00:00 00:00:00 d_J [id number] Medica l 2022-12-24 2022-12-24 Outpatient GC[facility]_Tod PRIV PRIV 239 [id number] [facility] 00:00:00 00:00:00 d_J [id number] Medica l 2022-12-22 2022-12-22 [facility] 405 [facility] 00:00:00 00:00:00 WERNER Pearson: Health - Med ical [address] [address] , Ph. 2022-12-21 2022-12-21 Outpatient [facility]_Tod PRIV PRIV 239 [id number] [facility] 00:00:00 00:00:00 d_J [id number] Medica l 2022-12-17 2022-12-17 [facility] 331 [facility] 00:00:00 00:00:00 WERNER Pearson: Health - Med ical [address] [address] , Ph. 2022-12-15 2022-12-15 [facility] 329 [facility] 00:00:00 00:00:00 WERNER Pearson: Health - Med ical [address] [address] , Ph. 2022-12-10 2022-12-10 [facility] [id number] [facility] 00:00:00 00:00:00 WERNER Pearson: Health - Med ical [address] [address] , Ph. 2022-12-07 2022-12-07 [facility] [id number] [facility] 00:00:00 00:00:00 WERNER Pearson: Health - Med ical [address] [address] , Ph. 2022-12-06 2022-12-06 Outpatient GC_[facility]_Tod PRIV PRIV 239 [id number] [facility] 00:00:00 00:00:00 d_J [id number] Medica l 2022-12-06 2022-12-06 Outpatient GC[facility]_Tod PRIV PRIV 239 [id number] [facility] 00:00:00 00:00:00 d_J [id number] Medica l 2022-12-06 2022-12-06 Outpatient [facility]_Tod PRIV PRIV 239 [id number] [facility] 00:00:00 00:00:00 d_J [id number] Medica l 2022-12-06 2022-12-06 Outpatient GC[facility]_Tod PRIV PRIV 239 [id number] [facility] 00:00:00 00:00:00 d_J [id number] Medica l 2022-12-06 2022-12-06 Outpatient [facility]_Tod PRIV PRIV 239 [id number] [facility] 00:00:00 00:00:00 d_J [id number] Medica l 2022-11-26 2022-11-26 [facility] [id number] [facility] 00:00:00 00:00:00 WERNER Pearson: Health - Med ical [address] [address] , Ph. 2022-11-26 2022-11-26 Transition MAURO Lynch [id number] Univers 00:00:00 00:00:00 of Jam HOPE [id number] it y of [place] [id number] [facility] [id number] [facility] 403 Branch 2022-11-26 2022-11-26 Telephone BIBI Valenzuela [id number] Univers 00:00:00 00:00:00 Sendlexi HOLDEN [id number] ity [facility] 4.2.7.2.686 Nolan [id number] [facility] 008 Branch 2022-11-23 2022-11-25 Inpatient U [facility]EL [facility] [id number] Univers 19:04:00 16:05:00 SUKH murphy [facility] 2022-11-23 2022-11-25 [facility] Candida Chau [facility] [id number] Univers 19:04:00 16:05:00 Encounter Sukh Vital [facility] 350.1.13.10 ity [facility] 4.2.7.2.686 [place] [phone] [facility] 081 Branch 2022-11-24 2022-11-24 Outpatient GC_[facility]_Tod PRIV PRIV 239 [id number] [facility] 00:00:00 00:00:00 Chantell [id number] Medica l 2022-11-24 2022-11-24 Outpatient GC[facility]_Tod PRIV PRIV 239 [id number] [facility] 00:00:00 00:00:00 Chantell [id number] Medica l 2022-11-23 2022-11-23 Outpatient GC_[facility]_Tod PRIV PRIV 239 [id number] [facility] 00:00:00 00:00:00 Chantell [id number] Medica l 2022-11-23 2022-11-23 [facility] [place] [facility] 307 [facility] 00:00:00 00:00:00 WERNER Pearson: Health - Med ical [address] [address] , Ph. 2022-11-12 2022-11-12 Outpatient GC[facility]_Tod PRIV PRIV 239 [id number] [facility] 00:00:00 00:00:00 d_J [id number] Medica l 2022-11-11 2022-11-11 Outpatient GC[facility]_Tod PRIV PRIV 239 [id number] [facility] 00:00:00 00:00:00 d_J [id number] Medica l 2022-11-02 2022-11-02 Mathew Cardona [facility] 202 [id number] [facility] 00:00:00 00:00:00 Jenaro [facility] - Med ical MD: [address] [address] , Ph. 2022-10-20 2022-10-20 Outpatient GC_[facility]_Tod PRIV PRIV 239 [id number] [facility] 00:00:00 00:00:00 d_J [id number] Medica l 2022-10-20 2022-10-20 Outpatient GC[facility]_Tod PRIV PRIV 239 [id number] [facility] 00:00:00 00:00:00 d_J [id number] Medica l 2022-10-19 2022-10-19 [facility] 131 [facility] 00:00:00 00:00:00 WERNER Pearson: Health - Med ical [address] [address] , Ph. 2022-10-15 2022-10-15 Outpatient GC_[facility]_Tod PRIV PRIV 239 [id number] [facility] 00:00:00 00:00:00 d_J [id number] Medica l 2022-10-15 2022-10-15 Outpatient GC[facility]_Tod PRIV PRIV 239 [id number] [facility] 00:00:00 00:00:00 d_J [id number] Medica l 2022-10-13 2022-10-13 Outpatient [facility]_Tod PRIV PRIV 239 [id number] [facility] 00:00:00 00:00:00 d_J [id number] Medica l 2022-09-29 2022-09-29 Outpatient GC[facility]_Tod PRIV PRIV 239 [id number] [facility] 00:00:00 00:00:00 d_J [id number] Medica l 2022-09-29 2022-09-29 Outpatient GC[facility]_Tod PRIV PRIV 239 [id number] [facility] 00:00:00 00:00:00 d_J [id number] Medica l 2022-09-29 2022-09-29 [facility] 111 [facility] 00:00:00 00:00:00 WERNER Pearson: Health - Med ical [address] [address] , Ph. 2022-09-21 2022-09-21 Outpatient GC_[facility]_Tod PRIV PRIV 239 [id number] [facility] 00:00:00 00:00:00 d_J [id number] Medica l 2022-09-21 2022-09-21 Outpatient GC[facility]_Tod PRIV PRIV 239 [id number] [facility] 00:00:00 00:00:00 d_J [id number] Medica l 2022-09-21 [facility]09-[facility] [id number] [facility] 00:00:00 00:00:00 WERNER Pearson: Health - Med ical [address] [address] , Ph. 2022-09-16 2022-09-16 Outpatient GC_[facility]_Tod PRIV PRIV 239 [id number] [facility] 00:00:00 00:00:00 d_J [id number] Medica l 2022-09-14 2022-09-14 Outpatient GC[facility]_Tod PRIV PRIV 239 [id number] [facility] 00:00:00 00:00:00 d_J [id number] Medica l 2022-09-10 2022-09-10 [facility] [id number] [facility] 00:00:00 00:00:00 WERNER Pearson: Health - Med ical [address] [address] , Ph. 2022-09-03 2022-09-03 Outpatient GC_[facility]_Tod PRIV PRIV 239 [id number] [facility] 00:00:00 00:00:00 d_J [id number] Medica l 2022-08-27 2022-08-27 Outpatient GC[facility]_Tod PRIV PRIV 239 [id number] [facility] 00:00:00 00:00:00 d_J [id number] Medica l 2022-08-24 2022-08-24 [facility] 206 [facility] 00:00:00 00:00:00 WERNER Pearson: Health - Med ical [address] [address] , Ph. 2022-08-18 2022-08-18 Outpatient GC_[facility]_Tod PRIV PRIV 239 [id number] [facility] 00:00:00 00:00:00 d_J [id number] Medica l 2022-08-18 2022-08-18 Outpatient [facility]_Tod PRIV PRIV 239 [id number] [facility] 00:00:00 00:00:00 d_J [id number] Medica l 2022-08-04 2022-08-04 Outpatient GC_[facility]_Tod PRIV PRIV 239 [id number] [facility] 00:00:00 00:00:00 d_J [id number] Medica l 2022-07-27 2022-07-27 Outpatient [facility]_Tod PRIV PRIV 239 [id number] [facility] 00:00:00 00:00:00 d_J [id number] Medica l 2022-07-26 2022-07-26 Outpatient [facility]_Tod PRIV PRIV 239 [id number] [facility] 00:00:00 00:00:00 d_J [id number] Medica l 2022-07-23 2022-07-23 Outpatient GC[facility]_Tod PRIV PRIV 239 [id number] [facility] 00:00:00 00:00:00 d_J [id number] Medica l 2022-07-20 2022-07-20 [facility] 101 [facility] 00:00:00 00:00:00 WERNER Pearson: Health - Med ical [address] [address] , Ph. 2022-07-15 2022-07-15 Outpatient [facility]_Tod PRIV PRIV 239 [id number] [facility] 00:00:00 00:00:00 d_J [id number] Medica l 2022-07-09 2022-07-09 Outpatient [facility]_Tod PRIV PRIV 239 [id number] [facility] 00:00:00 00:00:00 d_J [id number] Medica l 2022-07-09 2022-07-09 Katia [facility] 021 [facility] 00:00:00 00:00:00 WERNER Pearson: Health - Med ical [address] [address] , Ph. 2022-07-06 2022-07-06 Outpatient [facility]_Tod PRIV PRIV 239 [id number] [facility] 00:00:00 00:00:00 d_J [id number] Medica l 2022-07-06 2022-07-06 Mathew Cardona [facility] 202 [facility] 00:00:00 00:00:00 Jenaro [facility] - Med icaurban MD: [address] [address] , Ph. 2022-06-29 2022-06-29 Outpatient GC_[facility]_Tod PRIV PRIV 239 [id number] [facility] 00:00:00 00:00:00 d_J [id number] Medica l 2022-06-02 2022-06-02 Outpatient [facility]_Tod PRIV PRIV 239 [id number] [facility] 00:00:00 00:00:00 d_J [id number] Medica l 2022-06-01 2022-06-01 Outpatient Michel PRIV PRIV [id number] 00:00:00 00:00:00 Katia [id number] 2022-06-01 2022-06-01 Katia [facility] [id number] [facility] 00:00:00 00:00:00 WERNER Pearson: Health - Med ica [address] [address] , Ph. 2022-05-31 2022-05-31 Outpatient GC_[facility]_Tod PRIV PRIV 239 [id number] [facility] 00:00:00 00:00:00 d_J [id number] Medica l 2022-05-28 2022-05-28 Outpatient GC[facility]_Tod PRIV PRIV 239 [id number] [facility] 00:00:00 00:00:00 d_J [id number] Medica l 2022-05-25 2022-05-25 Outpatient [facility]_Tod PRIV PRIV 239 [id number] [facility] 00:00:00 00:00:00 d_J [id number] Medica l 2022-05-20 2022-05-20 Outpatient GC[facility]_Tod PRIV PRIV 239 [id number] [facility] 00:00:00 00:00:00 d_J [id number] Medica l 2022-05-10 2022-05-10 Outpatient [facility]_Tod PRIV PRIV 239 [id number] [facility] 00:00:00 00:00:00 d_J [id number] Medica l 2022-05-07 2022-05-07 Outpatient GC[facility]_Tod PRIV PRIV 239 [id number] [facility] 00:00:00 00:00:00 d_J [id number] Medica l 2022-05-07 2022-05-07 Outpatient Michel PRIV PRIV [id number] 00:00:00 00:00:00 Katia [id number] 2022-05-07 2022-05-07 [facility] [id number] [facility] 00:00:00 00:00:00 WERNER Pearson: Health - Med ical [address] [address] , Ph. 2022-05-05 2022-05-05 Outpatient GC_[facility]_Tod PRIV PRIV [id number] [facility] 00:00:00 00:00:00 d_J [id number] Medica l 2022 2022 Outpatient GC_[facility]_Tod PRIV PRIV [id number] [facility] 00:00:00 00:00:00 d_J [id number] Medica l 2022 2022 Outpatient Jenaro [facility] [id number] 00:00:00 00:00:00 Mathew Cardona [id number] 2022 2022 Mathew Cardona [facility] 202 [id number] [facility] 00:00:00 00:00:00 Jenaro [facility] - Med ical MD: [address] [address] , Ph. 2022-04-12 2022-04-12 Outpatient GC_[facility]_Tod PRIV PRIV 239 [id number] [facility] 11:50:00 11:50:00 d_J [id number] Medica l 2022-04-06 2022-04-06 Outpatient GC[facility]_Tod PRIV PRIV [id number] [facility] 10:04:00 10:04:00 d_J [id number] Medica l 2022-04-06 2022-04-06 Outpatient GC[facility]_Tod PRIV PRIV 239 [id number] [facility] 10:04:00 10:04:00 d_J [id number] Medica l 2022-04-06 2022-04-06 [facility] [id number] [facility] 00:00:00 00:00:00 WERNER Pearson: Health - Med ical [address] [address] , Ph. 2022-04-06 2022-04-06 Outpatient ROSS Pearson PRIV [id number] 00:00:00 00:00:00 Katia [id number] 2022-03-29 2022-03-29 Outpatient [facility]_Tod PRIV PRIV [id number] [facility] 02:04:00 02:04:00 d_J [id number] Medica l 2022-03-28 2022-03-28 Outpatient [facility]_Tod PRIV PRIV [id number] [facility] 10:59:00 10:59:00 d_J [id number] Medica l 2022-03-26 2022-03-26 Outpatient [facility]_Tod PRIV PRIV [id number] [facility] 12:02:00 12:02:00 d_J [id number] Medica l 2022-03-25 2022-03-25 Outpatient [facility]_Tod PRIV PRIV [id number] [facility] 10:06:00 10:06:00 d_J [id number] Medica l 2022-03-19 2022-03-19 Outpatient [facility]_Tod PRIV PRIV [id number] [facility] 04:13:00 04:13:00 d_J [id number] Medica l 2022-03-19 2022-03-19 [facility] [id number] [facility] 00:00:00 00:00:00 WERNER Pearson: Health - Med ical [address] [address] , Ph. 2022-03-19 2022-03-19 Outpatient ROSS Pearson PRIV [id number] [id number] 00:00:00 00:00:00 [facility] [id number] [id number] 2022-03-17 2022-03-17 Outpatient [facility]_Tod PRIV PRIV [id number] [facility] 09:14:00 09:14:00 d_J [id number] Medica l 2022-03-14 2022-03-14 Outpatient [facility]_Tod PRIV PRIV [id number] [facility] 10:45:00 10:45:00 d_J [id number] Medica l 2022-03-12 2022-03-12 Outpatient [facility]_Tod PRIV PRIV [id number] [facility] 04:53:00 04:53:00 d_J [id number] Medica l 2022-03-05 2022-03-05 Outpatient [facility]_Tod PRIV PRIV [id number] [facility] 09:05:00 09:05:00 d_J [id number] Medica l 2022-03-05 2022-03-05 Outpatient [facility]_Tod PRIV PRIV [id number] [facility] 09:05:00 09:05:00 d_J [id number] Medica l 2022-03-05 2022-03-05 [facility] [id number] [facility] 00:00:00 00:00:00 WERNER Pearson: Health - Med ical [address] [address] , Ph. 2022-03-05 2022-03-05 Outpatient Michel, PRIV PRIV [id number] 00:00:00 00:00:00 [facility] [id number]-a [id number] 2022-03-04 2022-03-04 Outpatient [facility]_Tod PRIV PRIV [id number] [facility] 10:54:00 10:54:00 d_J [id number] Medica l 2022-03-04 2022-03-04 Outpatient Jenaro, PRIV PRIV [id number] 00:00:00 00:00:00 Mathew Cardona [id number] 2022-03-04 2022-03-04 Mathew Cardona [facility] 00:00:00 00:00:00 Jenaro [facility] - Med ical MD: [address] [address] , Ph. 2022-02-21 2022-02-21 Outpatient GC_[facility]_Tod PRIV PRIV [id number] [facility] 10:40:00 10:40:00 d_J [id number] Medica l 2022-02-18 2022-02-18 Outpatient [facility]_Tod PRIV PRIV [id number] [facility] 02:07:00 02:07:00 d_J [id number] Medica l 2022-02-15 2022-02-15 Outpatient [facility]_Tod PRIV PRIV 239 [id number] [facility] 02:03:00 02:03:00 d_J [id number] Medica l 2022-02-12 2022-02-12 Outpatient [facility]_Tod PRIV PRIV [id number] [facility] 08:00:00 08:00:00 d_J [id number] Medica l 2022-02-12 2022-02-12 Outpatient Michel PRIV PRIV [id number] 00:00:00 00:00:00 [facility] [id number] 2022-02-12 2022-02-12 [facility] [id number] [facility] 00:00:00 00:00:00 WERNER Pearson: Health - Med ical [address] [address] , Ph. 2022-02-11 2022-02-11 Outpatient [facility]_Tod PRIV PRIV [id number] [facility] 11:07:00 11:07:00 d_J [id number] Medica l 2022-02-10 2022-02-10 Outpatient [facility]_Tod PRIV PRIV [id number] [facility] 05:20:00 05:20:00 d_J [id number] Medica l 2022-02-10 2022-02-10 Outpatient Michel, PRIV PRIV [id number] c-[id number] 00:00:00 00:00:00 [facility] [id number] [id number] 2022-02-10 2022-02-10 [facility] [id number] [facility] 00:00:00 00:00:00 Michel PA: Health - Med ical [address] [address] , Ph. 2022-02-07 2022-02-07 Outpatient [facility]_Tod PRIV PRIV [id number] [facility] 10:45:00 10:45:00 d_J [id number] Medica l 2022-02-05 2022-02-05 Outpatient [facility]_Tod PRIV PRIV [id number] [facility] 09:30:00 09:30:00 d_J [id number] Medica l 2022-02-05 2022-02-05 [facility] [id number] [facility] 00:00:00 00:00:00 Michel PA: Health - Med ical [address] [address] , Ph. 2022-02-02 2022-02-02 Outpatient [facility]_Tod PRIV PRIV [id number] [facility] 05:07:00 05:07:00 d_J [id number] Medica l 2022-02-02 2022-02-02 Outpatient Michel, PRIV PRIV [id number] c-[id number] 00:00:00 00:00:00 [facility] cfe-11ec-a [id number] 2022-02-02 2022-02-02 [facility] [id number] [facility] 00:00:00 00:00:00 WERNER Pearson: Health - Med ical [address] [address] , Ph. 2022-01-29 2022-01-29 Outpatient [facility]_Tod PRIV PRIV [id number] [facility] 01:17:00 01:17:00 d_J [id number] Medica l 2022-01-29 2022-01-29 Outpatient Michel PRIV PRIV [id number] 00:00:00 00:00:00 Katia [id number] 2022-01-29 2022-01-29 [facility] [id number] [facility] 00:00:00 00:00:00 WERNER Pearson: Health - Med ical [address] [facility] [address] , Ph. 2022-01-27 2022-01-27 Outpatient GC_BA[facility]_Tod PRIV PRIV [id number] [facility] 10:53:00 10:53:00 d_J [id number] Medica l 2022-01-19 2022-01-19 Outpatient GC_BAHC_Tod PRIV PRIV [id number] [facility] 07:50:00 07:50:00 d_J [id number] Medica l 2022-01-19 2022-01-19 Outpatient Michel PRIV PRIV [id number] [id number] 00:00:00 00:00:00 Katia [id number] 2022-01-19 2022-01-19 [facility] [id number] [facility] 00:00:00 00:00:00 WERNER Pearson: Health - Med ical [address] [facility] [address] , Ph. 2022-01-16 2022-01-16 Outpatient GC_BAHC_Tod PRIV PRIV [id number] [facility] 09:17:00 09:17:00 d_J [id number] Medica l 2022-01-10 2022-01-10 Outpatient GC_BAHC_Tod PRIV PRIV [id number] [facility] 08:11:00 08:11:00 d_J [id number] Medica l 2022-01-07 2022-01-07 Outpatient GC_BAHC_Tod PRIV PRIV [id number] [facility] 08:29:00 08:29:00 d_J [id number] Medica l 2022-01-07 2022-01-07 Outpatient Jenaro, PRIV PRIV [id number] 00:00:00 00:00:00 Mathew Cardona [id number] 2022-01-07 2022-01-07 Mathew Cardona [facility] 00:[facility]:00 00:00:00 Jenaro [facility] - Med chaitanya MD: [address] , [place] [address] , Ph. 2022-01-07 2022-01-07 Outpatient Jenaro, PRIV PRIV [id number] 00:00:00 00:00:00 Mathew Cardona [id number] 2022-01-05 2022-01-05 Outpatient GC_BAHC_Tod PRIV PRIV [id number] [facility] 01:05:00 01:05:00 d_J [id number] Medica l 2022-01-01 2022-01-01 Outpatient GC_BAHC_Tod PRIV PRIV [id number] [facility] 02:12:00 02:12:00 d_J [id number] Medica l 2021-12-31 2021-12-31 Outpatient GC_BAHC_Tod PRIV PRIV [id number] [facility] 05:55:00 05:55:00 d_J [id number] Medica l 2021-12-31 2021-12-31 Outpatient Cucumber, PRIV PRIV [id number] 00:00:00 00:00:00 December [id number] 2021-12-31 2021-12-31December [facility]IV [facility] [id number] [facility] 00:00:00 00:00:00 Shaylee [facility] - Medic al FOOD AND NUTRITION SERVICES ASSISTANT: [address] [facility] , [place] [address] , Ph. 2021-12-31 2021-12-31 Outpatient Shaylee, PRIV PRIV [id number] 00:00:00 00:00:00 December [id number] 2021-12-28 2021-12-28 Outpatient GC_BAHC_Spa PRIV PRIV [id number] [facility] 05:07:00 05:07:00 Haleigh [id number] Medica l 2021-10-28 2021-11-17 Emergency EM Micheal, HCACL MEDI.01 [id number] [facility] 00:33:00 16:31:00 Roselia 96 [facility] 2019-12-05 2019-12-05 [facility] [id number] Common 09:37:00 09:37:[address] [facility] 2019-08-20 2019-08-20 [facility] [id number] Common 11:20:00 11:20:[address] [facility] 2019-08-10 2019-08-18 Inpatient Eugene [facility] [id number] [address] [place] [address] 20:44:00 15:00:00 [facility] 2019-08-09 2019-08-09 [facility] [id number] Common 16:31:00 16:31:[address] [facility] 2019-08-07 2019-08-07 [facility] [id number] Common 14:43:00 14:43:[address] [facility] 2019-05-16 2019-05-16 [facility] [id number] Common 10:20:00 10:20:[address] [facility] 2019-02-27 2019-02-27 Outpatient [facility] [id number] Common 13:20:00 13:20:[address] [facility] 2019-01-01 2019-01-01 [facility] [id number] Common 09:54:00 09:54:[address] [facility] 2019-01-01 2019-01-01 Out[facility] [id number] Common 09:00:00 09:00:[address] [facility] 2018-11-30 2018-11-30 Outpatient [facility] [id number] Common 10:45:00 10:45:[address] [facility] 2018-11-24 2018-11-24 [facility] [id number] Common 15:45:00 15:45:[address] [facility] 2018-10-25 2018-10-25 [facility] [id number] Common 09:00:00 09:00:[address] [facility] 2018-08-30 2018-08-30 [facility] [id number] Common 09:45:00 09:45:[address] [facility] 2018-08-29 2018-08-29 Out[facility] [id number] Common 09:54:00 09:54:[address] [facility] 2018-06-30 2018-06-30 [facility] [id number] Common 09:30:00 09:30:[address] [facility] 2018-05-31 2018-05-31 Out[facility] [id number] Common 15:00:00 15:00:[address] [facility] 2018-05-03 2018-05-03 Out[facility] [id number] Common 09:30:00 09:30:[address] [facility] 2018-03-30 2018-03-30 Out[facility] [id number] Common 16:33:00 16:33:[address] [facility] 2018-03-23 2018-03-23 [facility]patient [facility] [id number] Common 08:36:00 08:36:[address] [facility] 2018-03-21 2018-03-21 [facility]patient [facility] [id number] Common 08:45:00 08:45:[address] [facility] 2018-02-20 2018-02-20 [facility]patient [facility] [id number] Common 08:45:00 08:45:[address] [facility] 2018-01-20 2018-01-20 Outpatient Nancy Cruzt [id number] Common 09:00:00 09:00:[address] [facility] Results Test Description Test Time Test Comments Results Result Comments Source Cholesterol in LDL [Mass/volume] in Serum or Plasma 00:00:00 Test Item Value Reference Range Interpretation Comme nts Cholesterol in LDL [Mass/volume] in Serum or Plasma (test code = 20 89-1) [id number] 15:15:00 Test Item Value Reference Range Interpretation Comments SURGICAL (test code = SR) R UN DATE: 11/17/21 [facility] LAB PAGE 1 RUN TIME: 1515 Specimen Inquiry RUN USER: INTERFACE P ATIENT: VIKA CHEN [facility] #: [id number] LOC: DEWAYNE U #: [id number] AGE/SX: 56/M ROOM: [facility] RE10/28/21REG DR: Roselia Burton MD : 61 BED: 1 DIS: STATUS: ADM IN TLOC: SPEC #: [id number] RECD: 11/16/21-8 STATUS: RICARDO HUERTAS #: [id number] ABNER: 11/13/21- [facility] DR: Matt Herrera MD ENTERED: 11/16/21-1030 SP TYPE: SURGICAL OTHR DR: Self Referred Dillon Herrera MD, Husam Ismail MD Loya, Altaf N MD Mbogua, Caroline N MD Reyhani, Sean A DPMORDERED: BONE DECAL, GM LEVEL 5, ANATOMIC SPEC CODES: SU1024 - LEG, NOS COPIES TO: Self Referred Matt Herrera MD [address] [id number] Dillon Herrera MD [address] [facility] [address] [place] [address] Rafael Isidro MD [address] [place] [address] [place] [address] [facility] [address] [place] [address] Savanna Lira MD [address] [place] [phone] WestDonald A DPM [address] [address] [email or web address] CONTINUED ON NEXT PAGE R UN DATE: 11/17/21 [place] - LAB PAGE 2 RUN TIME: 1515 Specimen Inquiry RUN USER: INTERFACE S PEC #: [id number] PATIENT: VIKA CHEN [place] #[id number] (Continued) PROCEDURES: BONE DECAL (11/16/21-1551) GM LEVEL 5 (11/16/21-1030) TISSUES: LEG, NOS - LEFT AKA CLINICAL HISTORY SAME FINAL DIAGNOSIS Left foot and leg, 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 Group Sales Representative sections are submitted: (A) femur marrow margin;(B) skin and soft tissue resection margin; (C) popliteal artery margin; (D) heel ulcer withbone after decal. Technical component performed at [facility],[address] [place] [address], [place] [address] Unless gross only, the diagnosis is based [...] 1515 END OF REPORT COVID 19 INHOUSE [id number] 13:30:00 Test Item Value Reference Range Interpretation Comments COVID 19 INHOUSE Negative Negative A negative result is AG (test code = presumptive and should be [id number]) confirmedwith a n FDA authorized mole cular [...] high or waivedcomplexit y tests. BASIC METABOLIC [id number] 07:46:00 Test Item Value Reference Range Interpretation [...] 8.1 mg/dL 8.0-10.5 N CA) CBC W/AUTO [id number] 07:08:00 Test Item Value Reference Range Interpretation [...] REQUIRED (test code NO = MDIFF) PROTHROMBIN [id number] 06:19:00 Test Item Value Reference Range Interpretation [...] (to prevent recurrent infar ct). 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 [facility] - XR CHEST 1 [id number] 00:00:00 [facility] 1965 Sex: M FAX: Rayo Adkins DPM [phone] [place]: St: ADM FAX: Savanna Louise [phone] FAX: Roselia Maqruez MD [phone] Name: VIKA CHEN [facility] : 1965 Age/S: 56/M [address] [place] [address] Unit #: [id number] Loc: [address] [address] Phys: Rayo Moreira DPM Acct: [id number] Dis Date: Status: ADM IN PHONE #: [phone] Exam Date: 11/12/2021 185 FAX #: [phone] Reason: PRE OP EXAMS: CPT CODE: [id number] XR CHEST 1 V 56812 PROCEDURE INFORMATION: Exam: XR Chest Exam date [...] By: [email or web address] Orig Print D/T: S: 11/13/2021 (699) PAGE 1 Signed ReportCOVID 19 Asymptomatic IH [id number] 10:31:00 Test Item Value Reference Range Interpretation [...] moderate, high or waivedcomplexit y tests. VANCOMYCIN [id number] 05:05:00 Test Item Value Reference Range Interpretation Comments VANCOMYCIN TROUGH 15.0 mcg/mL 10.0-20.0 N 10-15 mcg/ mL - (test code = VANCT) Cellulit is, Urinary Tract Infection . 15-20 mcg/mL - Bacteremia, Infective Endocarditis, Meningitis, Osteomyelitis, Pneumonia, Su re Skin/Soft-Tissu e Infection, Spin al Abscess. 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 [facility] GLUCOSE [id number] 15:48:00 Test Item Value Reference Range Interpretation Comments GLUCOSE BEDSIDE (test 65 MG/DL 70-110 L Perfor med by certified code = GLUBED) brick and tile making machine operator at [facility] GLUCOSE [id number] 11:32:00 Test Item Value Reference Range Interpretation Comments GLUCOSE BEDSIDE (test 98 MG/DL 70-110 N Perfor med by certified code = GLUBED) 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 tile making machine operator at [facility] GLUCOSE [id number] 07:44:00 Test Item Value Reference Range Interpretation Comments GLUCOSE BEDSIDE (test 86 MG/DL 70-110 N Perfor med by certified code = GLUBED) brick and tile making machine operator at [facility] GLUCOSE [id number] 20:12:00 Test Item Value Reference Range Interpretation Comments GLUCOSE BEDSIDE (test 109 MG/DL 70-110 N Perfor med by certified code = GLUBED) brick and tile making machine operator at [facility] GLUCOSE [id number] 16:27:00 Test Item Value Reference Range Interpretation Comments GLUCOSE BEDSIDE (test 98 MG/DL 70-110 N Perfor med by certified code = GLUBED) brick and tile making machine operator at [facility] VANCOMYCIN [id number] 14:11:00 Test Item Value Reference Range Interpretation Comments VANCOMYCIN TROUGH 8.2 mcg/mL 10.0-20.0 L 10-15 mcg/ mL - (test code = VANCT) Cellulit is, Urinary Tract Infection . 15-20 mcg/mL - Bacteremia, Inf ective Endocarditis, Meningitis, Osteomyelitis, Pneumonia, Su re Skin/Soft-Tissu e Infection, Spin al Abscess. BASIC METABOLIC [id number] 14:08:00 Test Item Value Reference Range Interpretation [...] 9.0 mg/dL 8.0-10.5 N CA) CBC W/AUTO [id number] 13:55:00 Test Item Value Reference Range Interpretation [...] REQUIRED (test code NO = MDIFF) GLUCOSE [id number] 11:41:00 Test Item Value Reference Range Interpretation Comments GLUCOSE BEDSIDE (test 95 MG/DL 70-110 N Perfor med by certified code = GLUBED) brick and tile making machine operator at [facility] GLUCOSE [id number] 07:36:00 Test Item Value Reference Range Interpretation Comments GLUCOSE BEDSIDE (test 83 MG/DL 70-110 N Perfor med by certified code = GLUBED) brick and tile making machine operator at [facility] GLUCOSE [id number] 19:49:00 Test Item Value Reference Range Interpretation Comments GLUCOSE BEDSIDE (test 116 MG/DL 70-110 H Perfor med by certified code = GLUBED) brick and tile making machine operator at [facility] VANCOMYCIN [id number] 17:07:00 Test Item Value Reference Range Interpretation Comments VANCOMYCIN TROUGH < 3.0 mcg/mL 10.0-20.0 L 10-15 mcg/ mL - (test code = VANCT) Cellulit is, Urinary Tract Infection . 15-20 mcg/mL - Bacteremia, Infective Endocarditis, Meningitis, Osteomyelitis, Pneumonia, Su re Skin/Soft-Tissu e Infection, Spin al Abscess. GLUCOSE [id number] 16:51:00 Test Item Value Reference Range Interpretation Comments GLUCOSE BEDSIDE (test 97 MG/DL 70-110 N Perfor med by certified code = GLUBED) brick and tile making machine operator at [facility] GLUCOSE [id number] 11:19:00 Test Item Value Reference Range Interpretation Comments GLUCOSE BEDSIDE (test 149 MG/DL 70-110 H Perfor med by certified code = GLUBED) brick and tile making machine operator at [facility] GLUCOSE [id number] 09:02:00 Test Item Value Reference Range Interpretation Comments GLUCOSE BEDSIDE (test 101 MG/DL 70-110 N Perfor med by certified code = GLUBED) brick and tile making machine operator at [facility] GLUCOSE [id number] 16:24:00 Test Item Value Reference Range Interpretation Comments GLUCOSE BEDSIDE (test 96 MG/DL 70-110 N Perfor med by certified code = GLUBED) brick and tile making machine operator at [facility] GLUCOSE [id number] 12:34:00 Test Item Value Reference Range Interpretation Comments GLUCOSE BEDSIDE (test 93 MG/DL 70-110 N Perfor med by certified code = GLUBED) brick and tile making machine operator at [facility] GLUCOSE [id number] 07:59:00 Test Item Value Reference Range Interpretation Comments GLUCOSE BEDSIDE (test 87 MG/DL 70-110 N Perfor med by certified code = GLUBED) brick and tile making machine operator at [facility] BLOOD UREA [id number] 04:11:00 Test Item Value Reference Range Interpretation Comments BLOOD UREA NITROGEN (test code = 13 mg/dL 7-18 BUN) [id number] 04:11:00 Test Item Value Reference Range Interpretation Comments CREATININE (test code = CREAT) 0.7 mg/dL 0.6-1.3 N GLUCOSE [id number] 20:35:00 Test Item Value Reference Range Interpretation Comments GLUCOSE BEDSIDE (test 106 MG/DL 70-110 N Perfor med by certified code = GLUBED) brick and tile making machine operator at [facility] GLUCOSE [id number] 16:32:00 Test Item Value Reference Range Interpretation Comments GLUCOSE BEDSIDE (test 109 MG/DL 70-110 N Perfor med by certified code = GLUBED) brick and tile making machine operator at [facility] COMPREHENSIVE METABOLIC [id number] 16:02:00 Test Item Value Reference Range Interpretation [...] N TOTAL (test code = ALKP) GLUCOSE [id number] 12:00:00 Test Item Value Reference Range Interpretation Comments GLUCOSE BEDSIDE (test 105 MG/DL 70-110 N Perfor med by certified code = GLUBED) brick and tile making machine operator at [facility] GLUCOSE [id number] 07:18:00 Test Item Value Reference Range Interpretation Comments GLUCOSE BEDSIDE (test 85 MG/DL 70-110 N Perfor med by certified code = GLUBED) brick and tile making machine operator at [facility] GLUCOSE [id number] 20:30:00 Test Item Value Reference Range Interpretation Comments GLUCOSE BEDSIDE (test 76 MG/DL 70-110 N Perfor med by certified code = GLUBED) brick and tile making machine operator at [facility] VANCOMYCIN [id number] 17:08:00 Test Item Value Reference Range Interpretation Comments VANCOMYCIN TROUGH 14.2 mcg/mL 10.0-20.0 N 10-15 mcg/ mL - (test code = VANCT) Cellulit is, Urinary Tract Infection . 15-20 mcg/mL - Bacteremia, Infective Endocarditis, Meningitis, Osteomyelitis, Pneumonia, Su re Skin/Soft-Tissu e Infection, Spin al Abscess. GLUCOSE [id number] 16:39:00 Test Item Value Reference Range Interpretation Comments GLUCOSE BEDSIDE (test 109 MG/DL 70-110 N Perfor med by certified code = GLUBED) brick and tile making machine operator at [facility] GLUCOSE [id number] 11:46:00 Test Item Value Reference Range Interpretation Comments GLUCOSE BEDSIDE (test 103 MG/DL 70-110 N Perfor med by certified code = GLUBED) brick and tile making machine operator at [facility] GLUCOSE [id number] 06:48:00 Test Item Value Reference Range Interpretation Comments GLUCOSE BEDSIDE (test 75 MG/DL 70-110 N Perfor med by certified code = GLUBED) brick and tile making machine operator at [facility] GLUCOSE [id number] 19:41:00 Test Item Value Reference Range Interpretation Comments GLUCOSE BEDSIDE (test 98 MG/DL 70-110 N Perfor med by certified code = GLUBED) brick and tile making machine operator at [facility] GLUCOSE [id number] 17:07:00 Test Item Value Reference Range Interpretation Comments GLUCOSE BEDSIDE (test 87 MG/DL 70-110 N Perfor med by certified code = GLUBED) brick and tile making machine operator at [facility] GLUCOSE [id number] 12:34:00 Test Item Value Reference Range Interpretation Comments GLUCOSE BEDSIDE (test 105 MG/DL 70-110 N Perfor med by certified code = GLUBED) brick and tile making machine operator at [facility] GLUCOSE [id number] 09:08:00 Test Item Value Reference Range Interpretation Comments GLUCOSE BEDSIDE (test 130 MG/DL 70-110 H Perfor med by certified code = GLUBED) brick and tile making machine operator at [facility] BASIC METABOLIC [id number] 08:05:00 Test Item Value Reference Range Interpretation [...] 9.1 mg/dL 8.0-10.5 N CA) CBC W/AUTO [id number] 07:49:00 Test Item Value Reference Range Interpretation [...] REQUIRED (test code NO = MDIFF) GLUCOSE [id number] 21:23:00 Test Item Value Reference Range Interpretation Comments GLUCOSE BEDSIDE (test 91 MG/DL 70-110 N Perfor med by certified code = GLUBED) brick and tile making machine operator at [facility] GLUCOSE [id number] 16:42:00 Test Item Value Reference Range Interpretation Comments GLUCOSE BEDSIDE (test 89 MG/DL 70-110 N Perfor med by certified code = GLUBED) brick and tile making machine operator at [facility] GLUCOSE [id number] 12:20:00 Test Item Value Reference Range Interpretation Comments GLUCOSE BEDSIDE (test 74 MG/DL 70-110 N Perfor med by certified code = GLUBED) brick and tile making machine operator at [facility] GLUCOSE [id number] 22:34:00 Test Item Value Reference Range Interpretation Comments GLUCOSE BEDSIDE (test 98 MG/DL 70-110 N Perfor med by certified code = GLUBED) brick and tile making machine operator at [facility] GLUCOSE [id number] 15:35:00 Test Item Value Reference Range Interpretation Comments GLUCOSE BEDSIDE (test 106 MG/DL 70-110 N Perfor med by certified code = GLUBED) brick and tile making machine operator at [facility] GLUCOSE [id number] 07:51:00 Test Item Value Reference Range Interpretation Comments GLUCOSE BEDSIDE (test 110 MG/DL 70-110 N Perfor med by certified code = GLUBED) brick and tile making machine operator at [facility] CBC W/AUTO [id number] 07:02:00 Test Item Value Reference Range Interpretation [...] (test NO code = MDIFF) BASIC METABOLIC [id number] 06:15:00 Test Item Value Reference Range Interpretation [...] 21 MCG/ML 50.0-100.0 L = VALP) GLUCOSE [id number] 20:02:00 Test Item Value Reference Range Interpretation Comments GLUCOSE BEDSIDE (test 98 MG/DL 70-110 N Perfor med by certified code = GLUBED) brick and tile making machine operator at [facility] GLUCOSE [id number] 16:08:00 Test Item Value Reference Range Interpretation Comments GLUCOSE BEDSIDE (test 83 MG/DL 70-110 N Perfor med by certified code = GLUBED) brick and tile making machine operator at [facility] GLUCOSE [id number] 12:05:00 Test Item Value Reference Range Interpretation Comments GLUCOSE BEDSIDE (test 90 MG/DL 70-110 N Perfor med by certified code = GLUBED) brick and tile making machine operator at [facility] GLUCOSE [id number] 09:59:00 Test Item Value Reference Range Interpretation Comments GLUCOSE BEDSIDE (test 75 MG/DL 70-110 N Perfor med by certified code = GLUBED) brick and tile making machine operator at [facility] GLUCOSE [id number] 08:47:00 Test Item Value Reference Range Interpretation Comments GLUCOSE BEDSIDE (test 71 MG/DL 70-110 N Perfor med by certified code = GLUBED) brick and tile making machine operator at [facility] GLUCOSE [id number] 08:16:00 Test Item Value Reference Range Interpretation Comments GLUCOSE BEDSIDE (test 59 MG/DL 70-110 L Perfor med by certified code = GLUBED) brick and tile making machine operator at [facility] BASIC METABOLIC [id number] 07:59:00 Test Item Value Reference Range Interpretation [...] 9.1 mg/dL 8.0-10.5 N CA) CBC W/AUTO [id number] 07:49:00 Test Item Value Reference Range Interpretation [...] 0.0-0.1 N NRBC#) COVID 19 Asymptomatic IH [id number] 06:23:00 Test Item Value Reference Range Interpretation Comments COVID 19 Asymptomatic Negative Negative A nega tive result is IH AG (test code = presumpti ve and should COVNONPUIAG) be confirmedwit h an FDA authorized mole cular assay, if necnatasha ana forpatient eva arredondo.A positive result does not rule out co-inf [...] moderate, high or waivedcomplexit y tests. GLUCOSE [id number] 18:01:00 Test Item Value Reference Range Interpretation Comments GLUCOSE BEDSIDE (test 127 MG/DL 70-110 H Perfor med by certified code = GLUBED) brick and tile making machine operator at [facility] VANCOMYCIN [id number] 14:38:00 Test Item Value Reference Range Interpretation Comments VANCOMYCIN TROUGH 11.1 mcg/mL 10.0-20.0 N 10-15 mcg/ mL - (test code = VANCT) Cellulit is, Urinary Tract Infection . 15-20 mcg/mL - Bacteremia, Infective Endocarditis, Meningitis, Osteomyelitis, Pneumonia, Su re Skin/Soft-Tissu e Infection, Spin al Abscess. GLUCOSE [id number] 12:15:00 Test Item Value Reference Range Interpretation Comments GLUCOSE BEDSIDE (test 130 MG/DL 70-110 H Perfor med by certified code = GLUBED) brick and tile making machine operator at [facility] CBC W/AUTO [id number] 09:05:00 Test Item Value Reference Range Interpretation [...] 0.00 x10 3/uL 0.0-0.1 N NRBC#) GLUCOSE [id number] 08:31:00 Test Item Value Reference Range Interpretation Comments GLUCOSE BEDSIDE (test 104 MG/DL 70-110 N Perfor med by certified code = GLUBED) brick [employer] tile making machine operator at [facility] BASIC METABOLIC [id number] 07:54:00 Test Item Value Reference Range Interpretation [...] = 9.5 mg/dL 8.0-10.5 N CA) GLUCOSE [id number] 21:02:00 Test Item Value Reference Range Interpretation Comments GLUCOSE BEDSIDE (test 118 MG/DL 70-110 H Perfor med by certified code = GLUBED) [employer] tile making machine operator at [facility] GLUCOSE [id number] 15:58:00 Test Item Value Reference Range Interpretation Comments GLUCOSE BEDSIDE (test 105 MG/DL 70-110 N Perfor med by certified code = GLUBED) brick and tile making machine operator at [facility] GLUCOSE [id number] 12:08:00 Test Item Value Reference Range Interpretation Comments GLUCOSE BEDSIDE (test 112 MG/DL 70-110 H Perfor med by certified code = GLUBED) [employer] tile making machine operator at [facility] CBC W/AUTO [id number] 08:12:00 Test Item Value Reference Range Interpretation [...] 0.00 x10 3/uL 0.0-0.1 N NRBC#) GLUCOSE [id number] 07:51:00 Test Item Value Reference Range Interpretation Comments GLUCOSE BEDSIDE (test 103 MG/DL 70-110 N Perfor med by certified code = GLUBED) brick and tile making machine operator at [facility] BASIC METABOLIC [id number] 07:34:00 Test Item Value Reference Range Interpretation [...] = 8.9 mg/dL 8.0-10.5 N CA) GLUCOSE [id number] 20:06:00 Test Item Value Reference Range Interpretation Comments GLUCOSE BEDSIDE (test 138 MG/DL 70-110 H Perfor med by certified code = GLUBED) brick and tile making machine operator at [facility] GLUCOSE [id number] 16:20:00 Test Item Value Reference Range Interpretation Comments GLUCOSE BEDSIDE (test 89 MG/DL 70-110 N Perfor med by certified code = GLUBED) brick [employer] tile making machine operator at [facility] VANCOMYCIN [id number] 13:00:00 Test Item Value Reference Range Interpretation Comments VANCOMYCIN TROUGH 17.8 mcg/mL 10.0-20.0 N 10-15 mcg/ mL - (test code = VANCT) Cellulit is, Urinary Tract Infection . 15-20 mcg/mL - Bacteremia, Infective Endocarditis, Meningitis, Osteomyelitis, Pneumonia, Su re Skin/Soft-Tissu e Infection, Spin al Abscess. GLUCOSE [id number] 11:31:00 Test Item Value Reference Range Interpretation Comments GLUCOSE BEDSIDE (test 130 MG/DL 70-110 H Perfor med by certified code = GLUBED) brick and tile making machine operator at [facility] BASIC METABOLIC [id number] 08:03:00 Test Item Value Reference Range Interpretation [...] = 8.8 mg/dL 8.0-10.5 N CA) GLUCOSE [id number] 07:23:00 Test Item Value Reference Range Interpretation Comments GLUCOSE BEDSIDE (test 82 MG/DL 70-110 N [facility] med by certified code = GLUBED) brick and tile making machine operator at [facility] CBC W/AUTO [id number] 07:22:00 Test Item Value Reference Range Interpretation [...] 0.00 x10 3/uL 0.0-0.1 N NRBC#) GLUCOSE [id number] 22:30:00 Test Item Value Reference Range Interpretation Comments GLUCOSE BEDSIDE (test 187 MG/DL 70-110 H Perfor med by certified code = GLUBED) brick and tile making machine operator at [facility] GLUCOSE [id number] 20:31:00 Test Item Value Reference Range Interpretation Comments GLUCOSE BEDSIDE (test 57 MG/DL 70-110 L Perfor med by certified code = GLUBED) brick and tile making machine operator at [facility] GLUCOSE [id number] 16:56:00 Test Item Value Reference Range Interpretation Comments GLUCOSE BEDSIDE (test 100 MG/DL 70-110 N Perfor med by certified code = GLUBED) brick and tile making machine operator at [facility] [id number] 08:32:00 Test Item Value Reference Range Interpretation Comments HGBA1C% (test code = HGBA1C%) 5.6 %A1C 4.8-6.0 N BASIC METABOLIC [id number] 08:08:00 Test Item Value Reference Range Interpretation [...] (test code = LDL) NEAR OPTIM AL/ABOVE [id number] 89 HIGH>ER=681 KALE Y HIGH*Guidelines provided by the National Choles terol EducationProgra m Adult Treatment Panel III Indication for Test: Malabsorption/MalnutritioT4 [id number] 08:08:00 Test Item Value Reference Range Interpretation Comments T4 FREE (test code = T4F) 1.1 ng/dL 0.77-1.61 N Indication for Test: Malabsorption/MalnutritioTHYROID STIMULATING HORMONE 2021-10-29 08:08:00 Test Item Value Reference Range Interpretation Comments THYROID STIMULATING 3.95 0.42-5.47 N Results in HORMONE (test code = TSH) mi lli-International Units/mL Indication for Test: Malabsorption/MalnutritioVITAMIN D [id number] 08:08:00 Test Item Value Reference Range Interpretation Comments VITAMIN D 25-HYDROXY (test code = 25.2 ng/mL 30-100 L VITD25) Indication for Test: Malabsorption/MalnutritioCBC W/AUTO [id number] 07:33:00 Test Item Value Reference Range Interpretation [...] REQUIRED (test code NO = MDIFF) GLUCOSE [id number] 06:41:00 Test Item Value Reference Range Interpretation Comments GLUCOSE BEDSIDE (test 68 MG/DL 70-110 L Perfor med by certified code = GLUBED) brick and tile making machine operator at [facility] GLUCOSE [id number] 21:16:00 Test Item Value Reference Range Interpretation Comments GLUCOSE BEDSIDE (test 114 MG/DL 70-110 H Perfor med by certified code = GLUBED) brick and tile making machine operator at [facility] GLUCOSE [id number] 19:47:00 Test Item Value Reference Range Interpretation Comments GLUCOSE BEDSIDE (test 82 MG/DL 70-110 N Perfor med by certified code = GLUBED) brick and tile making machine operator at [facility] GLUCOSE [id number] 18:43:00 Test Item Value Reference Range Interpretation Comments GLUCOSE BEDSIDE (test 66 MG/DL 70-110 L Perfor med by certified code = GLUBED) brick and tile making machine operator at [facility] GLUCOSE [id number] 13:46:00 Test Item Value Reference Range Interpretation Comments GLUCOSE BEDSIDE (test 85 MG/DL 70-110 N Perfor med by certified code = GLUBED) brick and tile making machine operator at [facility] GLUCOSE [id number] 13:11:00 Test Item Value Reference Range Interpretation Comments GLUCOSE BEDSIDE (test 55 MG/DL 70-110 L Perfor med by certified code = GLUBED) brick and tile making machine operator at [facility] GLUCOSE [id number] 09:02:00 Test Item Value Reference Range Interpretation Comments GLUCOSE BEDSIDE (test 95 MG/DL 70-110 N Perfor med by certified code = GLUBED) brick and tile making machine operator at [facility] SED RATE [id number] 07:08:00 Test Item Value Reference Range Interpretation Comments SED RATE WESTERGREN (test code = 87 mm/hr 0-15 H SEDW) C REACTIVE [id number] 06:16:00 Test Item Value Reference Range Interpretation Comments C REACTIVE PROTEIN (test code = 68.0 mg/L <10.0 H CRP) LACTIC ACID [id number] 06:14:00 Test Item Value Reference Range Interpretation Comments LACTIC ACID REPEAT (test code = 0.7 mmol/l 0.4-1.9 N LACTR) LACTIC [id number] 00:32:00 Test Item Value Reference Range Interpretation Comments LACTIC ACID (test code = LACT) 3.1 mmol/L 0.4-1.9 H - DOP ART CFD ENGINEER LEVEL [id number] 00:00:00 [facility] 1965 Sex: M Name: VIKA CHEN [facility] : 1965 Age/S: 56 / M [address] [place] [address] Unit #: [id number] Loc: [place] [address] Phys: Donald Dodson DPM Acct: [id number] Dis Date: Status: ADM IN PHONE #: [phone] Exam Date: 10/28/2021 1315 FAX #: [phone] Reason: gangrene left foot EXAMS: CPT CODE: [id number] 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 Images documented and saved. COMPARISON: DX XR FOOT 2 VIEWS LT 10/27/2021 11:36 PM Right lower extremity: The rightankle-brachial index is 1.01 which is normal. Multiphasic [...] seen in the left common femoral artery. Mo nophasic flow is seen in the proximal left [...] Monophasic flow in the right lower extremity arteriesbeginning in the distal right superficial femoral artery suggesting arterial disease between the mid and distal right superficial femoral artery. 3. The left ankle-brachial index is 0.50 representing moderate arterial disease. 4. Occlusion of the mid left superficial femoral artery. ElectronicallySigned by Sally Garner on 10/28/2021 at 1322 Reported and signed by: Sven Graner M.D. PAGE 1 Signed Report (CONTINUED) Name: VIKA CHEN [facility] Raul Glasgow : 1965 Age/S: 56 / M [address] [place] [address] Unit #: [id number] Loc: [place] [address] Phys: Donald Dodson DPM Acct: [id number] Dis Date: Status: ADM IN PHONE #: [phone] Exam Date: 10/28/2021 1315 FAX #: [phone] Reason: gangrene left foot EXAMS: CPT CODE: [id number] DOP ART CFD ENGINEER LEVEL MAMTA [id number] <Continued> CC: Savanna Lira MD; Roselia Burton MD; Donald Dodson DPM Technologist: Sari Ontiveros RDMS() Trnscb Date/Time: 10/28/2021 (1321) t.SDR.CS18 Orig Print D/T: S: 10/28/2021 (1321) Probe: PAGE 2 Signed Report- XR FOOT 2 VIEWS [id number] 00:00:00 [facility] 1965 Sex: M FAX: Savanna Louise [phone] [place]: St: REG FAX: Angelo Oro NP [phone] Name: VIKA CHEN [facility] Forrest : 1965 Age/S: 56/M [address] [place] [address] Unit #: [id number] Loc: [place] [address] Phys: Angelo Oro NP Acct: [id number] Dis Date: Status: REG ER PHONE #: [phone] Exam Date: 10/27/2021 2350 FAX #: [phone] Reason: L foot pain EXAMS: CPT CODE: [id number] XR [place] [address] [place] [address] PROCEDURE INFORMATION: Exam: XR Left Foot Exam [...] signed by: Jesus Castaneda M.D. CC: Savanna Johnson MD; Angelo Oro NP Technologist: Cathy Snow, (R) Trnscrd Date/Time/By: 10/28/2021 (0000) : By: Sarah Orig Print D/T: S: 10/28/2021 (0000) PAGE 1 Signed ReportBASIC METABOLIC [id number] 23:22:00 Test Item Value Reference Range Interpretation [...] 9.2 mg/dL 8.0-10.5 N CA) CBC W/AUTO [id number] 23:11:00 Test Item Value Reference Range Interpretation [...] 0.0-0.1 N NRBC#) - XR CHEST 1 [id number] 00:00:00 [facility] 1965 Sex: M FAX: Savanna Louise [phone] [place]: St: REG FAX: Angelo Oro NP [phone] Name: VIKA CHEN [facility] Forrest : 1965 Age/S: 56/M [address] [place] [address] Unit #: [id number] Loc: [place] [address] Phys: Angelo Oro [employer] N[employer]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 Views: 1 view. COMPARISON: No relevant prior studies available. FINDINGS: Lungs: Clear. No consolidation. Pleural spaces: Unremarkable.No pleural effusion. No pneumothorax. Heart/Mediastinum: Contours within normal limits. Bones/joints: No acute osseous process. IMPRESSION: No radiographically identified acute cardiopulmonary findings. at 2315 Reported and signed by: Ewelina Potter M.D. CC: Savanna Lira MD; Angelo Oro NP Technologist: RT Kelly(R) Trnscrd Date/Time/By: 10/27/2021 (0852) : By: [email or web address] Orig Print D/T: S: 10/27/2021 (1547) PAGE 1 Signed ReportGLUCOMETER GLUCOSE- LAB USE [id number] 17:16:00 Test Item Value Reference Range Interpretation Comments GLUCOMETER (test code 116 mg/dL 70-100 H CLEANE D METERMeter ID: = GMG) [id number] tor: 3912 PENDING SALE TO [facility] GLUCOMETER GLUCOSE- LAB USE [id number] 07:52:00 Test Item Value Reference Range Interpretation Comments GLUCOMETER (test code = 89 mg/dL 70-100 NANCY DIDI METERMeter ID: GMG) [id number] tor: 6297 ROXANNE Matt MACK [id number] 22:37:00 Test Item Value Reference Range Interpretation Comments FOLATE (test code = A75) 33.1 ng/mL 3.1-17.5 H THYROID PANEL/SCREEN (TSH)2019-08-10 22:32:00 Test Item Value Reference Range Interpretation Comments TSH (test code = A57) 1.480 uIU/mL 0.358-3.740 LIPID [id number] 22:17:00 Test Item Value Reference Range Interpretation Comments CHOLESTROL (test code = 44A) 183 mg/dL 140-200 TRIGLYCERI (test code = 42B) 139 mg/dL <=149 HDL (test code = 83D) 41.0 mg/dL 40.0-60.0 LDL (test code = 34B) 115 mg/dL <=99 H CHL/HDL (test code = CHR) 4.5 0.0-3.4 H [id number] 22:17:00 Test Item Value Reference Range Interpretation Comments PREALBUMIN (test code = 08E) 28 mg/dL 18-38 [id number] 21:57:00 Test Item Value Reference Range Interpretation Comments MAGNESIUM (test code = 48A) 2.2 mg/dL 1.8-2.4 COMPREHENSIVE METABOLIC [id number] 18:16:00 Test Item Value Reference Range Interpretation [...] (test code = 31A) 47 IU/L <=78 [id number] 18:16:00 Test Item Value Reference Range Interpretation Comments ACETAMINPH (test code = 94M) <2.0 ug/mL 10.0-30.0 L ALCOHOL BLOOD (ETOH)2019-08-10 18:15:00 Test Item Value Reference Range Interpretation Comments ETOH (test code = HALC) ETHANOL The result is to be used only for medical purposes ALCOHOL (test code = <10 mg/dL <=10 56A) PRO TIME AND [id number] 18:14:00 Test Item Value Reference Range Interpretation [...] LMW Heparin. Order Code is ANTI-XA CARDIAC [id number] 18:14:00 Test Item Value Reference Range Interpretation Comments TROPONIN I (test code = A84) <0.015 ng/mL 0.000-0.045 AMMONIA [id number] 18:10:00 Test Item Value Reference Range Interpretation Comments AMMONIA (test code = 54A) 21 umol/L 11-32 [id number] 18:10:00 Test Item Value Reference Range Interpretation Comments SALICYLATE (test code = 94B) 2.7 mg/dL 2.8-20.0 L XR CHEST 1 VIEW [id number] 18:05:16LOCATION: [id number]: 54-year-old male, psychiatric workup.COMMENT: A frontal chest [...] ng/mL Barbiturates 200 ng/mL Opiates 2000 ng/mL [id number] 17:59:00 Test Item Value Reference Range Interpretation [...]
--- NOTE | 2023-07-11 18:35 | RAD REPORT ---
EXAM DESCRIPTION: Isela Single View07/11/2023 6:28 pm CLINICAL HISTORY: sob COMPARISON: November 2022 FINDINGS: The lungs appear clear of acute infiltrate. The heart is normal size IMPRESSION: No acute abnormalities displayed
[2023-07-11 19:00] LABS: Absolute Lymphocytes (CBC) 1.1 K/uL (0.7-4.9); Hematocrit 40.3 % (39.6-49.0); Lymphocytes % 12.1 % (15.3-44.8); MCV 91.2 fL (80-100); MPV 7.5 fL (7.6-11.3); Platelets 169 thou/uL (152-406); RBC Red Blood Cell Count 4.42 M/uL (4.33-5.43)
[2023-07-11] MEDS ORDERED: NA CHLORIDE 0.9% 1,000 ML ONE (19:03)
[2023-07-11 19:06] LABS: Protime INR 1.09
[2023-07-11 19:16] LABS: Albumin 3.1 g/dL (3.4-5.0); Bilirubin Total 0.3 mg/dL (0.2-1.0); Protein, Total 8.9 g/dL (6.4-8.2)
[2023-07-11 19:26] LABS: Specific Gravity 1.016 (1.005-1.030); Urine Bilirubin NEGATIVE (Negative); Urine Blood Negative (Negative); Urine Clarity Clear (Clear); Urine Color Light-Yellow (Yellow); Urine Glucose NEGATIVE (Negative); Urine Protein NEGATIVE (Negative); Urine Urobilinogen Normal (Normal); Urine pH 6.5 (5.0-7.0)
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
[2023-07-11] MEDS ORDERED: ONDANSETRON 4 MG/2 ML VIAL IV PRN (21:24)
[2023-07-11] MEDS ORDERED: ACETAMINOPHEN 325 MG TABLET PO PRN (21:24)
[2023-07-11] MEDS ORDERED: ALBUTEROL 2.5 MG/3 ML NEB SOL NEB PRN (21:24)
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
[2023-07-11] MEDS: NA CHLORIDE 0.9% 1,000 ML IV SCH (23:42)
[2023-07-12] MEDS: IPRATROPIUM BROM 0.5MG/2.5ML NEB SCH ×4 (01:19→20:21)
[2023-07-12] MEDS: PIPER TAZO 3.375 GM in NA CHLORIDE 0.9% 100 ML IV SCH ×2 (01:53→09:50)
--- NOTE | 2023-07-12 07:58 | RAD REPORT ---
EXAM DESCRIPTION: CT - Chest For Pe Angio - 07/12/2023 7:41 am CLINICAL HISTORY: hypoxia, tachycardia. Shortness of breath COMPARISON: 2008 TECHNIQUE: Dynamically enhanced axial 3 mm thick images of the chest were obtained during administra tion of 100 mL Isovue 370 IV contrast. Coronal and oblique reconstruction images were generated and r eviewed. Exam utilizes a protocol for optimal evaluation of pulmonary arterial tree. Maximum intensity projections 3D imaging was utilized All CT scans are performed using dose optimization technique as appropriate and may include automated exposure control or mA/KV adjustment according to patient size. FINDINGS: A pulmonary embolus is not seen. Midthoracic aorta measures 4.5 centimeters A pleural effusion is not seen. A pericardial effusion is not seen. Mild left lower lobe consolidation. COPD IMPRESSION: Negative for a pulmonary embolism. 4.5 centimeter ascending thoracic aortic aneurysm Mild left lower lobe pneumonia
[2023-07-12] MEDS: NA CHLORIDE 0.9% 1,000 ML IV SCH ×3 (08:00→21:59)
[2023-07-12] MEDS: ENOXAPARIN 40 MG/0.4 ML SQ SCH (09:50)
--- NOTE | 2023-07-12 11:55 | EKG ---
Test Date: 2023-07-11 Test Time: 18:32:46 Lock Technician: BINU MEASUREMENT RESULTS: Intervals: Rate: 96 NM: 158 QRSD: 76 QT: 364 QTc: 459 [place]: P: 59 NM: 158 QRS: 4 T: 98 INTERPRETIVE STATEMENTS: Normal sinus rhythm Anterior infarct, age undetermined Abnormal ECG Compared to ECG 11/23/2022 14:50:35 No significant changes Electronically Signed On 07-12-23 11:53:51 CDT by Lloyd Menezes
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
[2023-07-12] MEDS ORDERED: ALBUTEROL 2.5 MG/3 ML NEB SOL NEB PRN (14:00)
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
[2023-07-12] MEDS ORDERED: QUETIAPINE 100MG TAB PO SCH (21:15)
[2023-07-13] MEDS: IPRATROPIUM BROM 0.5MG/2.5ML NEB SCH ×3 (02:02→13:54)
[2023-07-13] MEDS: ENOXAPARIN 40 MG/0.4 ML SQ SCH (08:53)
[2023-07-13] MEDS ORDERED: levoFLOXacin 750 MG TAB PO SCH (09:00)
--- NOTE | 2023-07-13 11:59 | P.DS ---
Admission Date: 07/11/23 Discharge Date: 07/13/23 Disposition: ROUTINE DISCHARGE Discharge Condition: GOOD Reason for Admission: Suspected aspiration pneumonia, hypoxia. - Problems (1) COPD (chronic obstructive pulmonary disease) Current Visit: Yes Status: Acute Qualifiers: COPD type: COPD with acute exacerbation Qualified Code(s): J44.1 - Chronic obstructive pulmonary disease with (acute) exacerbation Brief History of Present Illness: Patient is 58 years of age admitted with cough congestion productive sputum slight fever he he lives in a shelter was a little hypoxic patient is a heavy smoker 1 to 1-1/2 packs a day feels fine his sats are satisfactory Hospital Course: Patient is 58 years of age admitted to the hospital he had a stroke with left lower lobe pneumonia and is also an active smoker presumably has COPD has some chest congestion did well during the course of the stay pneumonia was confirmed by CT scan his lab work was all normal cultures all negative patient did well and was discharged home on antibiotics also added Advair been counseled not to smoke at the time of discharge he was alert oriented responsive cooperative vital signs all stable chest shows some rhonchi vascular system heart sounds normal room air saturation satisfactory Vital Signs/Physical Exam: Temp Pulse Resp BP Pulse Ox 97.7 F 50 20 119/61 92 07/13/23 04:00 07/13/23 04:00 07/13/23 04:00 07/13/23 04:00 07/13/23 04:00 Laboratory Data at Discharge: WBC 9.50 thou/uL (4.3-10.9) 07/11/23 18:45 Hgb 14.0 g/dL (13.6-17.9) 07/11/23 18:45 Hct 40.3 % (39.6-49.0) 07/11/23 18:45 Plt Count 169 thou/uL (152-406) 07/11/23 18:45 PT 12.0 SECONDS (9.5-12.5) 07/11/23 18:45 INR 1.09 07/11/23 18:45 APTT 30.4 SECONDS (24.3-36.9) 07/11/23 18:45 Sodium 137 mEq/L (136-145) 07/11/23 18:45 Potassium 4.0 mEq/L (3.5-5.1) 07/11/23 18:45 BUN 23 mg/dL (7-18) H 07/11/23 18:45 Creatinine 1.17 mg/dL (0.70-1.30) 07/11/23 18:45 Glucose 99 mg/dL (74-106) 07/11/23 18:45 Total Bilirubin 0.3 mg/dL (0.2-1.0) 07/11/23 18:45 AST 25 U/L (15-37) 07/11/23 18:45 ALT 16 U/L (16-61) 07/11/23 18:45 Alkaline Phosphatase 55 U/L (45-117) 07/11/23 18:45 Home Medications: Acetaminophen 650 mg PO Q4HP PRN 07/11/23 Ascorbate Calcium [Vitamin C] 500 mg PO DAILY 07/11/23 Aspirin [Aspirin EC 81 MG] 81 mg PO DAILY 07/11/23 Atorvastatin Calcium [Lipitor*] 10 mg PO BEDTIME 07/11/23 Buspirone HCl [Buspar] 15 mg PO TID 07/11/23 Calcium Carbonate [Oscal*] 500 mg PO AC 07/11/23 Codeine/APAP [Tylenol #3*] 1 tab PO TID 07/11/23 Diclofenac Sodium 100 gm TP Q8HP PRN 07/11/23 Divalproex Sodium [Depakote ER] 500 mg PO TID 07/11/23 Docusate Sodium [Laxa Basic 100] 100 mg PO BIDP PRN 07/11/23 Ferrous Sulfate [Ferrous Sulfate*] 325 mg PO DAILY 07/11/23 Furosemide [Lasix*] 40 mg PO DAILY 07/11/23 Guaifenesin [Cough Syrup] 10 ml PO Q6HP PRN 07/11/23 Ipratropium/Albuterol Sulfate [Iprat-Albut 0.5-3(2.5) mg/3 ml] 3 ml IH TID 07/11/23 Lactulose [Enulose] 10 gm PO DAILYPRN PRN 07/11/23 Levothyroxine Sodium 25 mcg PO DAILY 07/11/23 Magnesium Oxide [Mag 0X*] 400 mg PO DAILY 07/11/23 Melatonin 10 mg PO BEDTIME 07/11/23 Menthol/Camphor [Biofreeze with Ilex Gel] 1 reza TP Q8HP PRN 07/11/23 Polyethyl Gly 3350 [Glycolax*] 17 gm PO DAILYPRN PRN 07/11/23 Potassium Chloride [Klor-Con 10] 20 meq PO DAILY 07/11/23 Pregabalin [Lyrica*] 100 mg PO TID 07/11/23 Quetiapine Fumarate [Seroquel] 100 mg PO DAILY 07/11/23 Quetiapine Fumarate [Seroquel] 400 mg PO BEDTIME 07/11/23 Sennosides [Senna] 2 tab PO BEDTIME 07/11/23 Sertraline [Zoloft*] 100 mg PO DAILY 07/11/23 Umeclidinium [place] [Incruse Ellipta] 62.5 mcg IH DAILY 07/11/23 Amox/Clavulanate [Augmentin 500-125 mg Tab] 500 mg PO BID 10 Days #20 tab 07/13/23 Fluticasone/Salmeterol [Advair 250-50 Diskus] 1 each IH BID 30 Days #60 aero 07/13/23 New Medications: Fluticasone/Salmeterol [Advair 250-50 Diskus] 1 each IH BID 30 Days #60 aero Amox/Clavulanate [Augmentin 500-125 mg Tab] 500 mg PO BID 10 Days #20 tab Followup: NONE,NONE [Primary Care Provider] -
[2023-07-14 14:29] VITALS: BP 119/61; TEMP 97.7; O2SAT 92; BMI 23.4
== END 2023-07-13 13:40 | DRG 190 ==
LOC: ER 17:47 → 2ND 22:13
PROVIDERS: ADMIT Internal Medicine Nephrology; ATTEND Internal Medicine Sleep Medicine
DX: J44.1 Chronic obstructive pulmonary disease with (acute) exacerbation (principal); J18.9 Pneumonia, unspecified organism; G81.94 Hemiplegia, unspecified affecting left nondominant side; J44.0 Chronic obstructive pulmonary disease with (acute) lower respiratory infection; I10 Essential (primary) hypertension; F41.9 Anxiety disorder, unspecified; F32.A Depression, unspecified; I71.21 Aneurysm of the ascending aorta, without rupture; F17.210 Nicotine dependence, cigarettes, uncomplicated; R09.02 Hypoxemia; Z88.7 Allergy status to serum and vaccine; Z59.00 Homelessness unspecified; Z79.82 Long term (current) use of aspirin; Z86.73 Personal history of transient ischemic attack (TIA), and cerebral infarction without residual deficits; Z79.890 Hormone replacement therapy; Z79.899 Other long term (current) drug therapy; Z89.612 Acquired absence of left leg above knee; Z20.822 Contact with and (suspected) exposure to COVID-19
CPT/HCPCS: 36415; 51702; 71045; 71275; 80053; 81003; 83605; 84145; 85025; 85610; 85730; 87040; 87635; 87804; 92610; 93005; 94010; 94640; 99285; J1650; J2543; J7030; J7613; J7644; Q9967

== ENCOUNTER 2023-07-26 18:11 | Inpatient (IN) | payer OTHER ==
--- OUTSIDE RECORDS SUMMARY | 2023-07-26 18:23 | XMS REPORT | Continuity of Care Document ---
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 [facility] Body weight 2022-11-25 09:39:00 78.971 kg [facility] BMI 2022-11-25 09:39:00 23.61 kg/m2 [facility] BP Diastolic 2022-11-23 00:00:00 62 mm[Hg] [facility] Height 2022-11-23 00:00:00 66 [in_i] [facility] BP Systolic 2022-11-23 00:00:00 115 mm[Hg] [facility] Body Weight 2022-11-23 00:00:00 2864 [oz_av] [facility] BP Diastolic 2022-11-02 00:00:00 67 mm[Hg] [facility] Height 2022-11-02 00:00:00 66 [in_i] [facility] BMI (Body Mass 2022-11-02 00:00:00 27 kg/m2 [facility] Medical Index) BP Systolic 2022-11-02 00:00:00 99 mm[Hg] [facility] Body Weight 2022-11-02 00:00:00 2672 [oz_av] [facility] BP Diastolic 2022-10-19 00:00:00 70 mm[Hg] [facility] Height 2022-10-19 00:00:00 66 [in_i] [facility] BMI (Body Mass 2022-10-19 00:00:00 27 kg/m2 [facility] Index) BP Systolic 2022-10-19 00:00:00 133 mm[Hg] [facility] Body Weight 2022-10-19 00:00:00 2672 [oz_av] [facility] BP Diastolic 2022-09-29 00:00:00 64 mm[Hg] [facility] Height 2022-09-29 00:00:00 66 [in_i] [facility] BMI (Body Mass 2022-09-29 00:00:00 27 kg/m2 [facility] BP Systolic 2022-09-29 00:00:00 114 mm[Hg] [facility] Body Weight 2022-09-29 00:00:00 2672 [oz_av] [facility] BP Diastolic 2022-09-21 00:00:00 89 mm[Hg] [facility] Height 2022-09-21 00:00:00 66 [in_i] [facility] BMI (Body Mass 2022-09-21 00:00:00 27 kg/m2 [facility] BP Systolic 2022-09-21 00:00:00 117 mm[Hg] [facility] Body Weight 2022-09-21 00:00:00 2672 [oz_av] [facility] BP Diastolic 2022-09-10 00:00:00 70 mm[Hg] [facility] Height 2022-09-10 00:00:00 66 [in_i] [facility] BMI (Body Mass 2022-09-10 00:00:00 27 kg/m2 [facility] BP Systolic 2022-09-10 00:00:00 123 mm[Hg] [facility] Body Weight 2022-09-10 00:00:00 2672 [oz_av] [facility] BP Diastolic 2022-08-24 00:00:00 77 mm[Hg] [facility] Height 2022-08-24 00:00:00 66 [in_i] [facility] BMI (Body Mass 2022-08-24 00:00:00 27 kg/m2 [facility]) BP Systolic 2022-08-24 00:00:00 129 mm[Hg] [facility] Body Weight 2022-08-24 00:00:00 2678 [oz_av] [facility] BP Diastolic 2022-07-09 00:00:00 62 mm[Hg] [facility] Height 2022-07-09 00:00:00 66 [in_i] [facility] BMI (Body Mass 2022-07-09 00:00:00 26.5 kg/m2 [facility] Index) BP Systolic 2022-07-09 00:00:00 125 mm[Hg] [facility] Body Weight 2022-07-09 00:00:00 2624 [oz_av] [facility] BP Diastolic 2022-07-06 00:00:00 72 mm[Hg] [facility] Height 2022-07-06 00:00:00 66 [in_i] [facility] BMI (Body Mass 2022-07-06 00:00:00 26.5 kg/m2 [facility] Index) BP Systolic 2022-07-06 00:00:00 114 mm[Hg] [facility] Body Weight 2022-07-06 00:00:00 2624 [oz_av] [facility] BP Diastolic 2022-06-01 00:00:00 65 mm[Hg] [facility] Height 2022-06-01 00:00:00 66 [in_i] [facility] BMI (Body Mass 2022-06-01 00:00:00 25.8 kg/m2 [facility] Index) BP Systolic 2022-06-01 00:00:00 120 mm[Hg] [facility] Body Weight 2022-06-01 00:00:00 2562 [oz_av] [facility] BP Diastolic 2022-05-07 00:00:00 76 mm[Hg] [facility] Height 2022-05-07 00:00:00 66 [in_i] [facility] BMI (Body Mass 2022-05-07 00:00:00 22 kg/m2 [facility] Index) BP Systolic 2022-05-07 00:00:00 130 mm[Hg] [facility] Body Weight 2022-05-07 00:00:00 2180 [oz_av] [facility] BP Diastolic 2022 00:00:00 68 mm[Hg] [facility] Height 2022 00:00:00 66 [in_i] [facility] BMI (Body Mass 2022 00:00:00 23.8 kg/m2 [facility] BP Systolic 2022 00:00:00 148 mm[Hg] [facility] Body Weight 2022 00:00:00 2360 [oz_av] [facility] BP Diastolic 2022-04-06 00:00:00 72 mm[Hg] [facility] Height 2022-04-06 00:00:00 66 [in_i] [facility] BMI (Body Mass 2022-04-06 00:00:00 23.8 kg/m2 [facility] BP Systolic 2022-04-06 00:00:00 118 mm[Hg] [facility] Body Weight 2022-04-06 00:00:00 2360 [oz_av] [facility] BP Diastolic 2022-03-19 00:00:00 78 mm[Hg] [facility] Height 2022-03-19 00:00:00 66 [in_i] [facility] BMI (Body Mass 2022-03-19 00:00:00 23.8 kg/m2 [facility] BP Systolic 2022-03-19 00:00:00 111 mm[Hg] [facility] Body Weight 2022-03-19 00:00:00 2360 [oz_av] [facility] BP Diastolic 2022-03-05 00:00:00 70 mm[Hg] [facility] Height 2022-03-05 00:00:00 66 [in_i] [facility] BMI (Body Mass 2022-03-05 00:00:00 23.8 kg/m2 [facility] BP Systolic 2022-03-05 00:00:00 116 mm[Hg] [facility] Body Weight 2022-03-05 00:00:00 2360 [oz_av] [facility] BP Diastolic 2022-03-04 00:00:00 74 mm[Hg] [facility] Height 2022-03-04 00:00:00 66 [in_i] [facility] BMI (Body Mass 2022-03-04 00:00:00 23.8 kg/m2 [facility] BP Systolic 2022-03-04 00:00:00 118 mm[Hg] [facility] Body Weight 2022-03-04 00:00:00 2360 [oz_av] [facility] BP Diastolic 2022-02-12 00:00:00 72 mm[Hg] [facility] Height 2022-02-12 00:00:00 66 [in_i] [facility] BMI (Body Mass 2022-02-12 00:00:00 23.8 kg/m2 [facility] BP Systolic 2022-02-12 00:00:00 118 mm[Hg] [facility] Body Weight 2022-02-12 00:00:00 2360 [oz_av] [facility] BP Diastolic 2022-02-10 00:00:00 68 mm[Hg] [facility] Height 2022-02-10 00:00:00 66 [in_i] [facility] BMI (Body Mass 2022-02-10 00:00:00 23.9 kg/m2 [facility]) BP Systolic 2022-02-10 00:00:00 108 mm[Hg] [facility] Body Weight 2022-02-10 00:00:00 2368 [oz_av] [facility] BP Diastolic 2022-02-02 00:00:00 62 mm[Hg] [facility] BP Systolic 2022-02-02 00:00:00 125 mm[Hg] [facility] Body Weight 2022-02-02 00:00:00 2368 [oz_av] [facility] BP Diastolic 2022-01-29 00:00:00 74 mm[Hg] [facility] Height 2022-01-29 00:00:00 66 [in_i] [facility] BMI (Body Mass 2022-01-29 00:00:00 23.9 kg/m2 [facility]) BP Systolic 2022-01-29 00:00:00 128 mm[Hg] [facility] Body Weight 2022-01-29 00:00:00 2368 [oz_av] [facility] BP Diastolic 2022-01-19 00:00:00 75 mm[Hg] [facility] Height 2022-01-19 00:00:00 66 [in_i] [facility] BMI (Body Mass 2022-01-19 00:00:00 22.8 kg/m2 [facility] Medical Index) BP Systolic 2022-01-19 00:00:00 100 mm[Hg] [facility] Body Weight 2022-01-19 00:00:00 2258 [oz_av] [facility] BP Diastolic 2022-01-07 00:00:00 76 mm[Hg] [facility] Height 2022-01-07 00:00:00 66 [in_i] [facility] BMI (Body Mass 2022-01-07 00:00:00 22.8 kg/m2 [facility] Medical Index) BP Systolic 2022-01-07 00:00:00 116 mm[Hg] [facility] Body Weight 2022-01-07 00:00:00 2258 [oz_av] [facility] BP Diastolic 2021-12-31 00:00:00 72 mm[Hg] [facility] Height 2021-12-31 00:00:00 66 [in_i] [facility] BMI (Body Mass 2021-12-31 00:00:00 22.8 kg/m2 [facility] Medical Index) BP Systolic 2021-12-31 00:00:00 120 mm[Hg] [facility] Body Weight 2021-12-31 00:00:00 2256 [oz_av] [facility] Weight 2019-08-13 07:00:00 81.28 KG Height 2019-08-10 17:00:00 187.96 CM Procedures Procedure Date / Time Performing Clinician Source Performed PHOSPHORUS 2022-11-25 11:54:00 Jake suzy [facility] MAGNESIUM 2022-11-25 11:54:00 Jake [facility] TROPONIN I 2022-11-25 11:54:00 Jake Adnan [facility] COMP. METABOLIC PANEL 2022-11-25 11:54:00 Jadyn Joseph [facility] ([id number]) Medical Branch CBC WITH DIFF 2022-11-25 11:54:00 Jake [facility] N-TERMINAL PRO-BNP 2022-11-25 11:54:00 Jadyn Joseph [facility] YOUNG AURIS 2022-11-24 19:26:00 Sukh Vital [facility] SURVEILLANCE BY PCR [facility] (INFECTION CONTROL PURPOSES) COVID-19 (MOLECULAR 2022-11-24 17:23:00 Jake [facility] TESTING [facility] NUCLEIC ACID AMPLIFICATION) TRANSTHORACIC ECHO (TTE) 2022-11-24 17:16:19 Candida Chau [facility] COMPLETE [facility] TROPONIN I 2022-11-24 14:25:00 Jake [facility] THYROID STIMULATING 2022-11-24 14:25:00 Jake suzy [facility] HORMONE [facility] LIPID PANEL 2022-11-24 14:25:00 Jake suzy [facility] ([id number])(TOTAL [facility] [place] CHOLESTEROL, TRIGLYCERIDES, HDL) GLYCOSYLATED HEMOGLOBIN 2022-11-24 14:25:00 Jake [facility] (A1C) [facility] LACTIC ACID WHOLE BLOOD 2022-11-24 12:26:00 Jake suzy [facility] XR CHEST 1 VW 2022-11-24 07:44:39 Jake suzy [facility] URINE DRUG (IMMUNOASSAY) 2022-11-24 06:01:00 Jadyn Joseph [facility] SCREEN URINALYSIS 2022-11-24 06:01:00 Jake [facility] PNEUMOCOCCAL ANTIGEN 2022-11-24 06:01:00 Jadyn Joseph [facility] URINE CULTURE 2022-11-24 06:01:00 Jake suzy [facility] UREA NITROGEN, URINE 2022-11-24 06:01:00 Jadyn Joseph [facility] RANDOM [facility] SODIUM, URINE RANDOM 2022-11-24 06:01:00 Jake suzy [facility] PROTEIN CREAT RATIO 2022-11-24 06:01:00 Jadyn Joseph [facility] URINE RANDOM [facility] RESPIRATORY PANEL BY PCR 2022-11-24 05:25:00 Jadyn Joseph [facility] AC PANEL 21 + LACTIC 2022-11-24 05:24:00 Jadyn Joseph [facility] ACID Medical Branch PHOSPHORUS 2022-11-24 05:19:00 Jake [facility] MAGNESIUM 2022-11-24 05:19:00 [facility]-11-24 05:19[facility], CO2, Medical Branch GLUCOSE, BUN, CREATININE, CA) N-TERMINAL PRO-BNP 2022-11-24 05:19[facility]00 [facility]FF 2022-11-24 05:18:00 [facility] PROCALCIT[facility]IN 2022-11-24 05:16:00 Jake [facility] [id number] 2021-11-13 00:00:00 [facility] [id number] 2021-11-02 00:00:00 [facility] [id number] 2021-11-02 00:00:00 [facility] [id number] 2021-11-02 00:00:00 [facility] [id number] 2021-11-02 00:00:00 [facility] [id number] 2021-11-02 00:00:00 [facility] [id number] 2021-11-02 00:00:00 [facility] [id number] 2021-11-02 00:00:00 DOMINIC [facility] [id number] 2021-10-28 00:00:00 ERICA [facility] Plan of Care Planned Activity Planned Date Details Comments Source Diagnostic Test Pending 2021-12-31 00:00:00 drug screen, 14 [facility] drugs (detectimed), urine [code = drug screen, 14 drugs (detectimed), urine] Instructions [facility] Encounters Start End Encounter Admission Attending Care Care Encounter Source Date/Time Date/Time Type Type Clinicians Facility Department ID 2021-10-14 Outpatient Laura Arteaga [facility] [id number] Common 11:22:12 [id number] [facility] 2021-10-14 Outpatient Laura Arteaga [facility] [id number] Common 11:21:51 [id number] [facility] 2023-07-22 2023-07-22 Outpatient [facility] PRIV PRIV [id number] [facility] 00:00:00 00:00:00 d_J [id number] Medica l 2023-07-21 2023-07-21 Outpatient [facility] PRIV PRIV [id number] [facility] 00:00:00 00:00:00 d_J [id number] Medica l 2023-07-17 2023-07-17 Outpatient [facility] PRIV PRIV [id number] [facility] 00:00:00 00:00:00 d_J [id number] Medica l 2023-07-15 2023-07-15 Outpatient [facility] PRIV PRIV [id number] [facility] 00:00:00 00:00:00 d_J [id number] Medica l 2023-07-15 2023-07-15 Outpatient [facility] PRIV PRIV [id number] [facility] 00:00:00 00:00:00 d_J [id number] Medica l 2023-07-07 2023-07-07 Outpatient [facility] PRIV PRIV [id number] [facility] 00:00:00 00:00:00 d_J [id number] Medica l 2023-07-01 2023-07-01 Outpatient [facility] PRIV PRIV [id number] [facility] 00:00:00 00:00:00 d_J [id number] Medica l 2023-07-01 2023-07-01 Outpatient [facility] PRIV PRIV [id number] [facility] 00:00:00 00:00:00 d_J [id number] Medica l 2023-06-27 2023-06-27 Outpatient [facility] PRIV PRIV [id number] [facility] 00:00:00 00:00:00 d_J [id number] Medica l 2023-06-27 2023-06-27 Outpatient [facility] PRIV PRIV [id number] [facility] 00:00:00 00:00:00 d_J [id number] Medica l 2023-06-13 2023-06-13 Outpatient [facility] PRIV PRIV 239 [id number] [facility] 00:00:00 00:00:00 d_J [id number] Medica l 2023-06-10 2023-06-10 Outpatient [facility] PRIV PRIV [id number] [facility] 00:00:00 00:00:00 d_J [id number] Medica l 2023-06-10 2023-06-10 Outpatient [facility] PRIV PRIV [id number] [facility] 00:00:00 00:00:00 d_J [id number] Medica l 2023-06-02 2023-06-02 Outpatient [facility] PRIV PRIV [id number] [facility] 00:00:00 00:00:00 d_J [id number] Medica l 2023-05-18 2023-05-18 Outpatient [facility] PRIV PRIV [id number] [facility] 00:00:00 00:00:00 d_J [id number] Medica l 2023-05-16 2023-05-16 Outpatient [facility] PRIV PRIV [id number] [facility] 00:00:00 00:00:00 d_J [id number] Medica l 2023-05-13 2023-05-13 Outpatient [facility] PRIV PRIV [id number] [facility] 00:00:00 00:00:00 d_J [id number] Medica l 2023-05-05 2023-05-05 Outpatient [facility] PRIV PRIV [id number] [facility] 00:00:00 00:00:00 d_J [id number] Medica l 2023-05-01 2023-05-01 Outpatient [facility] PRIV PRIV [id number] [facility] 00:00:00 00:00:00 d_J [id number] Medica l 2023-04-27 2023-04-27 Outpatient [facility] PRIV PRIV 239 [id number] [facility] 00:00:00 00:00:00 d_J [id number] Medica l 2023-04-22 2023-04-22 Outpatient [facility] PRIV PRIV 239 [id number] [facility] 00:00:00 00:00:00 d_J [id number] Medica l 2023-04-22 2023-04-22 Outpatient [facility] PRIV PRIV [id number] [facility] 00:00:00 00:00:00 d_J [id number] Medica l 2023-04-14 2023-04-14 Outpatient [facility] PRIV PRIV 239 [id number] [facility] 00:00:00 00:00:00 d_J [id number] Medica l 2023-04-08 2023-04-08 Outpatient [facility] PRIV PRIV 239 [id number] [facility] 00:00:00 00:00:00 d_J [id number] Medica l 2023-04-04 2023-04-04 Outpatient [facility] PRIV PRIV 239 [id number] [facility] 00:00:00 00:00:00 d_J [id number] Medica l 2023-03-30 2023-03-30 Outpatient [facility] PRIV PRIV 239 [id number] [facility] 00:00:00 00:00:00 d_J [id number] Medica l 2023-03-29 2023-03-29 Outpatient [facility] PRIV PRIV 239 [id number] [facility] 00:00:00 00:00:00 d_J [id number] Medica l 2023-03-25 2023-03-25 Outpatient [facility] PRIV PRIV 239 [id number] [facility] 00:00:00 00:00:00 d_J [id number] Medica l 2023-03-16 2023-03-16 Outpatient [facility] PRIV PRIV 239 [id number] [facility] 00:00:00 00:00:00 d_J [id number] Medica l 2023-03-02 2023-03-02 Outpatient [facility] PRIV PRIV 239 [id number] [facility] 00:00:00 00:00:00 d_J [id number] Medica l 2023-03-01 2023-03-01 Outpatient [facility] PRIV PRIV 239 [id number] [facility] 00:00:00 00:00:00 d_J [id number] Medica l 2023-02-24 2023-02-24 Outpatient [facility] PRIV PRIV 239 [id number] [facility] 00:00:00 00:00:00 d_J [id number] Medica l 2023-02-23 2023-02-23 Outpatient [facility] PRIV PRIV 239 [id number] [facility] 00:00:00 00:00:00 d_J [id number] Medica l 2023-02-18 2023-02-18 Outpatient [facility] PRIV PRIV 239 [id number] [facility] 00:00:00 00:00:00 d_J [id number] Medica l 2023-02-18 2023-02-18 Outpatient [facility] PRIV PRIV 239 [id number] [facility] 00:00:00 00:00:00 d_J [id number] Medica l 2023-02-10 2023-02-10 Outpatient [facility] PRIV PRIV 239 [id number] [facility] 00:00:00 00:00:00 d_J [id number] Medica l 2023-02-10 2023-02-10 Outpatient [facility] PRIV PRIV 239 [id number] [facility] 00:00:00 00:00:00 d_J [id number] Medica l 2023-02-08 2023-02-08 Outpatient [facility] PRIV PRIV 239 [id number] [facility] 00:00:00 00:00:00 d_J [id number] Medica l 2023-02-03 2023-02-03 Outpatient [facility] PRIV PRIV 239 [id number] [facility] 00:00:00 00:00:00 d_J [id number] Medica l 2023-01-27 2023-01-27 Outpatient [facility] PRIV PRIV 239 [id number] [facility] 00:00:00 00:00:00 d_J [id number] Medica l 2023-01-26 2023-01-26 Outpatient [facility] PRIV PRIV 239 [id number] [facility] 00:00:00 00:00:00 d_J [id number] Medica l 2023-01-26 2023-01-26 [facility] [id number] [facility] 00:00:00 00:00:00 WERNER Pearson: Health - Med ical [address] [address] , Ph. 2023-01-24 2023-01-24 Outpatient [facility]Tod PRIV PRIV [id number] [facility] 00:00:00 00:00:00 d_J [id number] Medica l 2023-01-20 2023-01-20 Outpatient [facility] PRIV PRIV [id number] [facility] 00:00:00 00:00:00 d_J [id number] Medica l 2023-01-17 2023-01-17 Outpatient [facility]Tod PRIV PRIV [id number] [facility] 00:00:00 00:00:00 d_J [id number] Medica l 2023-01-17 2023-01-17 Outpatient [facility] PRIV PRIV 239 [id number] [facility] 00:00:00 00:00:00 d_J [id number] Medica l 2022-12-24 2022-12-24 Outpatient [facility] PRIV PRIV 239 [id number] [facility] 00:00:00 00:00:00 d_J [id number] Medica l 2022-12-22 2022-12-22 Kat[facility] [id number] [facility] 00:00:00 00:00:00 WERNER Pearson: Health - Med ical [address] [address] , Ph. 2022-12-21 2022-12-21 Outpatient [facility] PRIV PRIV [id number] [facility] 00:00:00 00:00:00 d_J [id number] Medica l 2022-12-17 2022-12-17 [facility] 331 [facility] 00:00:00 00:00:00 Michel PA: Health - Med ical [address] [address] , Ph. 2022-12-15 2022-12-15 [facility] 329 [facility] 00:00:00 00:00:00 Michel PA: Health - Med ical [address] [address] , Ph. 2022-12-10 2022-12-10 [facility] [id number] [facility] 00:00:00 00:00:00 Michel PA: Health - Med ical [address] [address] , Ph. 2022-12-07 2022-12-07 [facility] [id number] [facility] 00:00:00 00:00:00 WERNER Pearson: Health - Med ical [address] [address] , Ph. 2022-12-06 2022-12-06 Outpatient [facility] PRIV PRIV 239 [id number] [facility] 00:00:00 00:00:00 d_J [id number] Medica l 2022-12-06 2022-12-06 Outpatient [facility] PR[facility] PRIV 239 [id number] [facility] 00:00:00 00:00:00 d_J [id number] Medica l 2022-12-06 2022-12-06 Outpatient [facility] PR[facility] PRIV 239 [id number] [facility] 00:00:00 00:00:00 d_J [id number] Medica l 2022-12-06 2022-12-06 Outpatient [facility] PR[facility] PRIV 239 [id number] [facility] 00:00:00 00:00:00 d_J [id number] Medica l 2022-12-06 2022-12-06 Outpatient [facility] PR[facility] PRIV 239 [id number] [facility] 00:00:00 00:00:00 d_J [id number] Medica l 2022-11-26 2022-11-26 [facility] [id number] [facility] 00:00:00 00:00:00 WERNER Pearson: Health - Med ical [address] [address] , Ph. 2022-11-26 2022-11-26 Transition MAURO Lynch [id number] [facility] 00:00:00 00:00:00 of Care Elisha HOPE [id number] [place] [id number] [facility] [address] 2022-11-26 2022-11-26 Telephone BIBI Valenzuela [id number] Univers 00:00:00 00:00:00 Sendlexi HOLDEN 350.1.13.10 ity of [facility] 4.2.7.2.686 Nolan as [phone] [facility] [address] 2022-11-23 2022-11-25 Inpatient AMANUEL SPARROW [facility] [id number] Univers 19:04:00 16:05:00 SUKH ity of [facility] 2022-11-23 2022-11-25 [facility] Candida Chau [facility] [id number] Univers 19:04:00 16:05:00 Sukh Mathew 350.1.13.10 [place] 4.2.7.2.686 [facility] [phone] [facility] [address] 2022-11-24 2022-11-24 Outpatient [facility] PRIV PRIV [id number] [facility] 00:00:00 00:00:00 d_J [id number] Medica l 2022-11-24 2022-11-24 Outpatient [facility] PRIV PRIV [id number] [facility] 00:00:00 00:00:00 d_J [id number] Medica l 2022-11-23 2022-11-23 Outpatient [facility] PRIV PRIV 239 [id number] [facility] 00:00:00 00:00:00 d_J [id number] Medica l 2022-11-23 2022-11-23 [facility] [id number] [facility] 00:00:00 00:00:00 WERNER Pearson: Health - Med ical [address] [facility] [address] , Ph. 2022-11-12 2022-11-12 Outpatient [facility]Tod PRIV PRIV [id number] [facility] 00:00:00 00:00:00 d_J [id number] Medica l 2022-11-11 2022-11-11 Outpatient [facility] PRIV PRIV 239 [id number] [facility] 00:00:00 00:00:00 d_J [id number] Medica l 2022-11-02 2022-11-02 Mathew Cardona [facility] [id number] [facility] 00:00:00 00:00:00 Jenaro [facility] - Med ical MD: [address] [address] , Ph. 2022-10-20 2022-10-20 Outpatient [facility] PRIV PRIV 239 [id number] [facility] 00:00:00 00:00:00 d_J [id number] Medica l 2022-10-20 2022-10-20 Outpatient [facility] PRIV PRIV 239 [id number] [facility] 00:00:00 00:00:00 d_J [id number] Medica l 2022-10-19 2022-10-19 Katia [facility] [id number] [facility] 00:00:00 00:00:00 WERNER Pearson: Health - Med ical [address] [address] , Ph. 2022-10-15 2022-10-15 Outpatient [facility]Tod PRIV PRIV 239 [id number] [facility] 00:00:00 00:00:00 d_J [id number] Medica l 2022-10-15 2022-10-15 Outpatient [facility] PRIV PRIV 239 [id number] [facility] 00:00:00 00:00:00 d_J [id number] Medica l 2022-10-13 2022-10-13 Outpatient [facility] PRIV PRIV 239 [id number] [facility] 00:00:00 00:00:00 d_J [id number] Medica l 2022-09-29 2022-09-29 Outpatient [facility] PRIV PRIV 239 [id number] [facility] 00:00:00 00:00:00 d_J [id number] Medica l 2022-09-29 2022-09-29 Outpatient [facility] PRIV PRIV 239 [id number] [facility] 00:00:00 00:00:00 d_J [id number] Medica l 2022-09-29 2022-09-29 [facility] [id number] [facility] 00:00:00 00:00:00 WERNER Pearson: Health - Med ical [address] [address] , Ph. 2022-09-21 2022-09-21 Outpatient GC_[facility]_Tod PRIV PRIV 239 [id number] [facility] 00:00:00 00:00:00 d_J [id number] Medica l 2022-09-21 2022-09-21 Outpatient GC_[facility]_Tod PRIV PRIV 239 [id number] [facility] 00:00:00 00:00:00 d_J [id number] Medica l 2022-09-21 2022-09-21 [facility] [id number] [facility] 00:00:00 00:00:00 WERNER Pearson: Health - Med ical [address] [address] , Ph. 2022-09-16 2022-09-16 Outpatient GC_[facility]_Tod PRIV PRIV 239 [id number] [facility] 00:00:00 00:00:00 d_J [id number] Medica l 2022-09-14 2022-09-14 Outpatient [facility]_Tod PRIV PRIV 239 [id number] [facility] 00:00:00 00:00:00 d_J [id number] Medica l 2022-09-10 2022-09-10 [facility] [id number] [facility] 00:00:00 00:00:00 WERNER Pearson: Health - Med ical [address] [address] , Ph. 2022-09-03 2022-09-03 Outpatient [facility]_Tod PRIV PRIV 239 [id number] [facility] 00:00:00 00:00:00 d_J [id number] Medica l 2022-08-27 2022-08-27 Outpatient [facility]_Tod PRIV PRIV 239 [id number] [facility] 00:00:00 00:00:00 d_J [id number] Medica l 2022-08-24 2022-08-24 [facility] [id number] [facility] 00:00:00 00:00:00 WERNER Pearson: Health - Med ical [address] [address] , Ph. 2022-08-18 2022-08-18 Outpatient [facility]_Tod PRIV PRIV 239 [id number] [facility] 00:00:00 00:00:00 d_J [id number] Medica l 2022-08-18 2022-08-18 Outpatient [facility]Tod PRIV PRIV 239 [id number] [facility] 00:00:00 00:00:00 d_J [id number] Medica l 2022-08-04 2022-08-04 Outpatient [facility]Tod PRIV PRIV 239 [id number] [facility] 00:00:00 00:00:00 d_J [id number] Medica l 2022-07-27 2022-07-27 Outpatient [facility]_Tod PRIV PRIV 239 [id number] [facility] 00:00:00 00:00:00 d_J [id number] Medica l 2022-07-26 2022-07-26 Outpatient [facility]Tod PRIV PRIV 239 [id number] [facility] 00:00:00 00:00:00 d_J [id number] Medica l 2022-07-23 2022-07-23 Outpatient [facility]_Tod PRIV PRIV 239 [id number] [facility] 00:00:00 00:00:00 d_J [id number] Medica l 2022-07-20 [facility]22-07-[facility]:00 00:00:00 WERNER Pearson: Health - Med ical [address] [address] , Ph. 2022-07-15 2022-07-15 Outpatient [facility]_Tod PRIV PRIV 239 [id number] [facility] 00:00:00 00:00:00 d_J [id number] Medica l 2022-07-09 2022-07-09 Outpatient [facility]_Tod PRIV PRIV 239 [id number] [facility] 00:00:00 00:00:00 d_J [id number] Medica l 2022-07-09 2022-07-09 [facility] 021 [facility] 00:00:00 00:00:00 WERNER Pearson: Health - Med ical [address] [address] , Ph. 2022-07-06 2022-07-06 Outpatient [facility]_Tod PRIV PRIV 239 [id number] [facility] 00:00:00 00:00:00 d_J [id number] Medica l 2022-07-06 2022-07-06 Mathew Cardona [facility] [id number] [facility] 00:00:00 00:00:00 Jenaro [facility] - Med ical MD: [address] [address] , Ph. 2022-06-29 2022-06-29 Outpatient [facility]_Tod PRIV PRIV 239 [id number] [facility] 00:00:00 00:00:00 d_J [id number] Medica l 2022-06-02 2022-06-02 Outpatient [facility]Tod PRIV PRIV 239 [id number] [facility] 00:00:00 00:00:00 d_J [id number] Medica l 2022-06-01 2022-06-[address] [facility] [id number] 00:00:00 00:00:00 [facility]ia [id number]-[id number]-9 [id number] 2022-06-01 2022-06-01 [facility] [id number] [facility] 00:00:00 00:00:00 WERNER Pearson: Health - Med ical [address] [address] , Ph. 2022-05-31 2022-05-31 Outpatient [facility]_Tod PRIV PRIV 239 [id number] [facility] 00:00:00 00:00:00 d_J [id number] Medica l 2022-05-28 2022-05-28 Outpatient [facility]_Tod PRIV PRIV 239 [id number] [facility] 00:00:00 00:00:00 d_J [id number] Medica l 2022-05-25 2022-05-25 Outpatient [facility]Tod PRIV PRIV 239 [id number] [facility] 00:00:00 00:00:00 d_J [id number] Medica l 2022-05-20 2022-05-20 Outpatient [facility]Tod PRIV PRIV 239 [id number] [facility] 00:00:00 00:00:00 d_J [id number] Medica l 2022-05-10 2022-05-10 Outpatient [facility]Tod PRIV PRIV 239 [id number] [facility] 00:00:00 00:00:00 d_J [id number] Medica l 2022-05-07 2022-05-07 Outpatient [facility]Tod PRIV PRIV 239 [id number] [facility] 00:00:00 00:00:00 d_J [id number] Medica l 2022-05-07 2022-05-07 Outpatient Michel, PRIV PRIV [id number] 00:00:00 00:00:00 [facility] [id number] 2022-05-07 [facility]22-05-[facility] [id number] [facility] 00:00:00 00:00:00 WERNER Pearson: Health - Med ical [address] [address] , Ph. 2022-05-05 2022-05-05 Outpatient [facility]_Tod PRIV PRIV 239 [id number] [facility] 00:00:00 00:00:00 d_J [id number] Medica l 2022 2022 Outpatient [facility]_Tod PRIV PRIV 239 [id number] [facility] 00:00:00 00:00:00 d_J [id number] Medica l 2022 2022 Outpatient Jenaro, PRIV PRIV [id number] 00:00:00 00:00:00 Mathew Cardona [id number] 2022 2022 Mathew Cardona [facility] [id number] [facility] 00:00:00 00:00:00 Jenaro [facility] - Med ical MD: [address] [address] , Ph. 2022-04-12 2022-04-12 Outpatient GC_[facility]_Tod PRIV PRIV 239 [id number] [facility] 11:50:00 11:50:00 d_J [id number] Medica l 2022-04-06 2022-04-06 Outpatient [facility]Tod PRIV PRIV 239 [id number] [facility] 10:04:00 10:04:00 d_J [id number] Medica l 2022-04-06 2022-04-06 Outpatient GC[facility]_Tod PRIV PRIV 239 [id number] [facility] 10:04:00 10:04:00 d_J [id number] Medica l 2022-04-06 2022-04-06 [facility] [id number] [facility] 00:00:00 00:00:00 WERNER Pearson: Health - Med ical [address] [address] , Ph. 2022-04-06 2022-04-06 Outpatient Michel, PRIV PRIV [id number] 00:00:00 00:00:00 Katia [id number] 2022-03-29 2022-03-29 Outpatient [facility]_Tod PRIV PRIV 239 [id number] [facility] 02:04:00 02:04:00 d_J [id number] Medica l 2022-03-28 2022-03-28 Outpatient GC[facility]_Tod PRIV PRIV 239 [id number] [facility] 10:59:00 10:59:00 d_J [id number] Medica l 2022-03-26 2022-03-26 Outpatient GC[facility]_Tod PRIV PRIV 239 [id number] [facility] 12:02:00 12:02:00 d_J [id number] Medica l 2022-03-25 2022-03-25 Outpatient GC_[facility]_Tod PRIV PRIV 239 [id number] [facility] 10:06:00 10:06:00 d_J [id number] Medica l 2022-03-19 2022-03-19 Outpatient GC_[facility]_Tod PRIV PRIV 239 [id number] [facility] 04:13:00 04:13:00 d_J [id number] Medica l 2022-03-19 2022-03-19 [facility] [id number] [facility] 00:00:00 00:00:00 WERNER Pearson: Health - Med ica [address] [address] , Ph. 2022-03-19 2022-03-19 Outpatient Michel, PRIV PRIV [id number] c-[id number] 00:00:00 00:00:00 [facility] 09b-11ed-a [id number] 2022-03-17 2022-03-17 Outpatient [facility]_Tod PRIV PRIV 239 [id number] [facility] 09:14:00 09:14:00 d_J [id number] Medica l 2022-03-14 2022-03-14 Outpatient GC[facility]_Tod PRIV PRIV 239 [id number] [facility] 10:45:00 10:45:00 d_J [id number] Medica l 2022-03-12 2022-03-12 Outpatient [facility]_Tod PRIV PRIV 239 [id number] [facility] 04:53:00 04:53:00 d_J [id number] Medica l 2022-03-05 2022-03-05 Outpatient [facility]_Tod PRIV PRIV 239 [id number] [facility] 09:05:00 09:05:00 d_J [id number] Medica l 2022-03-05 2022-03-05 Outpatient [facility]_Tod PRIV PRIV 239 [id number] [facility] 09:05:00 09:05:00 d_J [id number] Medica l 2022-03-05 2022-03-05 [facility] [id number] [facility] 00:00:00 00:00:00 WERNER Pearson: Health - Med ical [address] [address] , Ph. 2022-03-05 2022-03-05 Outpatient Michel PRIV PRIV [id number] 00:00:00 00:00:00 Katai [id number] 2022-03-04 2022-03-04 Outpatient [facility]_Tod PRIV PRIV [id number] [facility] 10:54:00 10:54:00 d_J [id number] Medica l 2022-03-04 2022-03-04 Outpatient Jenaro, PRIV PRIV [id number] 00:00:00 00:00:00 Mathewdominguez Cardona [id number] 2022-03-04 2022-03-04 [id number] [facility] 00:00:00 00:00:00 Jenaro [facility] Med ical MD: [address] [address] , Ph. 2022-02-21 2022-02-21 Outpatient GC_[facility]_Tod PRIV PRIV 239 [id number] [facility] 10:40:00 10:40:00 d_J [id number] Medica l 2022-02-18 2022-02-18 Outpatient [facility]_Tod PRIV PRIV [id number] [facility] 02:07:00 02:07:00 d_J [id number] Medica l 2022-02-15 2022-02-15 Outpatient [facility]Tod PRIV PRIV [id number] [facility] 02:03:00 02:03:00 d_J [id number] Medica l 2022-02-12 2022-02-12 Outpatient [facility]_Tod PRIV PRIV [id number] [facility] 08:00:00 08:00:00 d_J [id number] Medica l 2022-02-12 2022-02-12 Outpatient Michel, PRIV PRIV [id number] 00:00:00 00:00:00 [facility] [id number] 2022-02-12 2022-02-12 [facility] [id number] [facility] 00:00:00 00:00:00 WERNER Pearson: Health - Med ical [address] [address] , Ph. 2022-02-11 2022-02-11 Outpatient GC_[facility]_Tod PRIV PRIV [id number] [facility] 11:07:00 11:07:00 d_J [id number] Medica l 2022-02-10 2022-02-10 Outpatient GC[facility]_Tod PRIV PRIV [id number] [facility] 05:20:00 05:20:00 d_J [id number] Medica l 2022-02-10 2022-02-10 Outpatient Michel, PRIV PRIV [id number] c-[id number] 00:00:00 00:00:00 [facility] 28b-11ec-9 [id number] 2022-02-10 2022-02-10 [facility] 525 [facility] 00:00:00 00:00:00 WERNER Pearson: Health - Med ical [address] [address] , Ph. 2022-02-07 2022-02-07 Outpatient GC_[facility]_Tod PRIV PRIV [id number] [facility] 10:45:00 10:45:00 d_J [id number] Medica l 2022-02-05 2022-02-05 Outpatient GC_[facility]_Tod PRIV PRIV [id number] [facility] 09:30:00 09:30:00 d_J [id number] Medica l 2022-02-05 2022-02-05 [facility] [id number] [facility] 00:00:00 00:00:00 WERNER Pearson: Health - Med ical [address] [address] , Ph. 2022-02-02 2022-02-02 Outpatient GC_[facility]_Tod PRIV PRIV [id number] [facility] 05:07:00 05:07:00 d_J [id number] Medica l 2022-02-02 2022-02-02 Outpatient Michel PRIV PRIV [id number] c-[id number] 00:00:00 00:00:00 [facility]ia cfe-11ec-a [id number] 2022-02-02 2022-02-02 [facility] [id number] [facility] 00:00:00 00:00:00 WERNER Pearson: Health - Med ical [address] [address] , Ph. 2022-01-29 2022-01-29 Outpatient GC_[facility]_Tod PRIV PRIV [id number] [facility] 01:17:00 01:17:00 d_J [id number] Medica l 2022-01-29 2022-01-29 Outpatient Michel PRIV PRIV [id number] 00:00:00 00:00:00 [facility]ia [id number] 2022-01-29 2022-01-29 [facility] [id number] [facility] 00:00:00 00:00:00 WERNER Pearson: Health - Med ical [address] [address] , Ph. 2022-01-27 2022-01-27 Outpatient GC_[facility]_Tod PRIV PRIV [id number] [facility] 10:53:00 10:53:00 d_J [id number] Medica l 2022-01-19 2022-01-19 Outpatient GC_[facility]_Tod PRIV PRIV [id number] [facility] 07:50:00 07:50:00 d_J [id number] Medica l 2022-01-19 2022-01-19 Outpatient Michel PRIV PRIV [id number] e-[id number] 00:00:00 00:00:00 [facility]ia [id number] 2022-01-19 2022-01-19 [facility] [id number] [facility] 00:00:00 00:00:00 Michel PA: Health - Med ical [address] [address] , Ph. 2022-01-16 2022-01-16 Outpatient GC_[facility]_Tod PRIV PRIV [id number] [facility] 09:17:00 09:17:00 d_J [id number] Medica l 2022-01-10 2022-01-10 Outpatient GC_[facility]_Tod PRIV PRIV [id number] [facility] 08:11:00 08:11:00 d_J [id number] Medica l 2022-01-07 2022-01-07 Outpatient GC_[facility]_Tod PRIV PRIV [id number] [facility] 08:29:00 08:29:00 d_J [id number] Medica l 2022-01-07 2022-01-07 Outpatient Jenaro, PRIV PRIV [id number] 00:00:00 00:00:00 Mathew Cardona [id number] 2022-01-07 2022-01-07 Mathew Cardona [facility] 202 [facility] 00:00:00 00:00:00 Jenaro, Health - Med ical MD: [address], [place] [address] , Ph. 2022-01-07 2022-01-07 Outpatient Jenaro, PRIV PRIV [id number] 00:00:00 00:00:00 Mathew Cardona 1fa-[id number]-9 [id number] 2022-01-05 2022-01-05 Outpatient GC_[facility]_Tod PRIV PRIV [id number] [facility] 01:05:00 01:05:00 d_J [id number] Medica l 2022-01-01 2022-01-01 Outpatient GC_[facility]_Tod PRIV PRIV [id number] [facility] 02:12:00 02:12:00 d_J [id number] Medica l 2021-12-31 2021-12-31 Outpatient GC_[facility]_Tod PRIV PRIV [id number] [facility] 05:55:00 05:55:00 d_J [id number] Medica l 2021-12-31 2021-12-31 Outpatient [place], PRIV PRIV [id number] 00:00:00 00:00:00 December [id number] 2021-12-31 2021-12-31[facility] 14 [facility] 00:00:00 00:00:00 [place], [facility] - Medic al 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 2021-12-31 2021-12-31 Outpatient [place], PRIV PRIV [id number] e-f 00:00:00 00:00:00 December edb-11ec-9 [id number] 2021-12-28 2021-12-28 Outpatient GC_[facility] PRIV PRIV [id number] [facility] 05:07:00 05:07:00 Haleigh [id number] Medica l 2021-10-28 2021-11-17 Emergency EM Micheal, HCACL MEDI.01 [id number] [facility] 00:33:00 16:31:[address] [place] [address] 2019-12-05 2019-12-05 Out[facility] [id number] Common 09:37:00 09:37:00 [facility] [employer] [facility] 2019-08-20 2019-08-20 Outpatient [facility] [id number] Common 11:20:00 11:20:00 [facility] [employer] [facility] 2019-08-10 2019-08-18 Inpatient Eugene [facility] [id number] [place] 20:44:00 15:00:00 [facility] 2019-08-09 2019-08-09 Out[facility] [id number] Common 16:31:00 16:31:[address] [address] [facility] 2019-08-07 2019-08-07 Outpatient [facility] [id number] Common 14:43:00 14:43:[address] [facility] 2019-05-16 2019-05-16 Outpatient [facility] [id number] Common 10:20:00 10:20:[address] [facility] 2019-02-27 2019-02-27 Outpatient [facility] [id number] Common 13:20:00 13:20:[address] [facility] 2019-01-01 2019-01-01 Outpatient [facility] [id number] Common 09:54:00 09:54:[address] [facility] 2019-01-01 2019-01-01 Outpatient [facility] [id number] Common 09:00:00 09:00:[address] [address] [facility] 2018-11-30 2018-11-30 Outpatient [facility] [id number] Common 10:45:00 10:45:[address] [facility] 2018-11-24 2018-11-24 Outpatient [facility] [id number] Common 15:45:00 15:45:[address] [facility] 2018-10-25 2018-10-25 Outpatient [facility] [id number] Common 09:00:00 09:00:[address] [facility] 2018-08-30 2018-08-30 Outpatient [facility] [id number] Common 09:45:00 09:45:[address] [facility] 2018-08-29 2018-08-29 Outpatient [facility] [id number] Common 09:54:00 09:54:[address] [facility] 2018-06-30 2018-06-30 Outpatient [facility] [id number] Common 09:30:00 09:30:[address] [facility] 2018-05-31 2018-05-31 Outpatient [facility] [id number] Common 15:00:00 15:00:[address] [facility] 2018-05-03 2018-05-03 Outpatient [facility] [id number] Common 09:30:00 09:30:[address] [facility] 2018-03-30 2018-03-30 Outpatient [facility] [id number] Common 16:33:00 16:33:[address] [facility] 2018-03-23 2018-03-23 Outpatient [facility] [id number] Common 08:36:00 08:36:[address] [address] [facility] 2018-03-21 2018-03-21 Outpatient [facility] [id number] Common 08:45:00 08:45:[address] [facility] 2018-02-20 2018-02-20 Outpatient [facility] 13 [id number] Common 08:45:00 08:45:[address] [facility] 2018-01-20 2018-01-20 Out[facility] [id number] Common 09:00:00 09:00:[address] [facility] Results Test Description Test Time Test Comments Results Result Comments Source Cholesterol in LDL [Mass/volume] in Serum or Plasma 00:00:00 Test Item Value Reference Range Interpretation Comme nts Cholesterol in LDL [Mass/volume] in Serum or Plasma (test code = 20 89-1) Iveth Chen2022-03-01 15:15:00 Test Item Value Reference Range Interpretation Comments SURGICAL (test code = SR) R UN DATE: 11/17/21 [place] - LAB PAGE 1 RUN TIME: 1515 Specimen Inquiry RUN USER: INTERFACE P ATIENT: VIKA CHEN LOC: Cornelia[facility] U #: [id number] AGE/SX: 56/M ROOM: [facility] RE10/28/21REG DR: Roselia Burton MD : 61 BED: 1 DIS: STATUS: ADM IN TLOC: SPEC #: [id number] RECD: 11/16/21-1028 STATUS: SOUKwan REQ #: [id number] ABNER: 11/13/21- SUBM DR: Matt Herrera MD ENTERED: 11/16/21-1030 SP TYPE: SURGICAL OTHR DR: Self Referred Dillon Herrera MD, Husam Ismail MD Loya, Altaf N MD Mbogua, Caroline N MD Reyhani, Sean A DPMORDERED: BONE DECAL, GM LEVEL 5, ANATOMIC SPEC CODES: [id number] - LEG, NOS COPIES TO: Self Referred Matt Herrera MD [address] [place] [address] Dillon Herrera MD [address] [facility] [address] [place] [address] Rafael Isidro MD [address] [place] [address] [place] [address] [place] [address] [email or web address] Savanna Lira MD [address] [place] [phone] Donald Dodson DPM [address] [facility], 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 Crematorium Operator sections are submitted: (A) femur marrow margin;(B) skin and soft tissue resection margin; (C) popliteal artery margin; (D) heel ulcer withbone after decal. Technical component performed at [facility],[address] [place] [address], [place] [address] Unless gross only, the diagnosis is based [...] 1515 END OF REPORT COVID 19 INHOUSE [id number] 13:30:00 Test Item Value Reference Range Interpretation Comments COVID 19 INHOUSE Negative Negative A negative result is AG (test code = presumptive and should be [id number]) confirmedwith a n FDA authorized mole cular [...] high or waivedcomplexit y tests. BASIC METABOLIC [id number] 07:46:00 Test Item Value Reference Range Interpretation [...] 8.1 mg/dL 8.0-10.5 N CA) CBC W/AUTO [id number] 07:08:00 Test Item Value Reference Range Interpretation [...] REQUIRED (test code NO = MDIFF) PROTHROMBIN [id number] 06:19:00 Test Item Value Reference Range Interpretation [...] (to prevent recurrent infar ct). 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 [facility] - XR CHEST 1 [id number] 00:00:00 [facility] 1965 Sex: M FAX: Rayo Adkins DPM [phone] [place]: St: ADM FAX: Savanna Louise [phone] FAX: Roselia Marquez MD [phone] Name: VIKA CHEN [facility] : 1965 Age/S: 56/M [address] [place] [address] Unit #: [id number] Loc: [address] [address] Phys: Rayo Moreira DPM Acct: [id number] Dis Date: Status: ADM IN PHONE #: [phone] Exam Date: 11/12/2021 185 FAX #: [phone] Reason: PRE OP EXAMS:CPT CODE: [id number] XR CHEST 1 V 17729 PROCEDURE INFORMATION: Exam: XR Chest Exam date and time: 11/12/2021 6:33 PM Age: 56 years old Clinical indication: Pre-operative exam; Respiratory screening exam;Additional info: Pre op TECHNIQUE: Imaging protocol: XR of the chest. Views: 1 view. COMPARISON: CRXR CHEST 1V 10/27/2021 11:29 PM FINDINGS: Limitations: Left lateral lung not included on study. Patient rotation to right. Lungs: There is crowding of the pulmonary vessels due to hypoinflation. No focalconsolidation in the right lung is present. There is limited visualization of the lateral left lung. Pleural spaces: No pleural effusion. No pneumothorax. Heart/Mediastinum: Heart size is within normal limits. Aortic calcifications. Bones/joints: No acute abnormality. IMPRESSION: Hypoinflated lungs.No acute consolidation or interstitial edema identified. at 0700 Reported and signed by: Faustino Sims M.D. CC: Rayo Moreira DPM; Savanna Lira MD; Roseila Burton MD Technologist: RT Clara([place]) Trnakrd Date/Time/By: 11/13/2021 (699) : By: [email or web address] Orig Print D/T: S: 11/13/2021 (699) PAGE 1 Signed ReportCOVID 19 Asymptomatic IH [id number] 10:31:00 Test Item Value Reference Range Interpretation [...] moderate, high or waivedcomplexit y tests. VANCOMYCIN [id number] 05:05:00 Test Item Value Reference Range Interpretation Comments VANCOMYCIN TROUGH 15.0 mcg/mL 10.0-20.0 N 10-15 mcg/ mL - (test code = VANCT) Cellulit is, Urinary Tract Infection . 15-20 mcg/mL - Bacteremia, Infective Endocarditis, Meningitis, Osteomyelitis, Pneumonia, Su re Skin/Soft-Tissu e Infection, Spin al Abscess. 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 [facility] GLUCOSE [id number] 11:32:00 Test Item Value Reference Range Interpretation Comments GLUCOSE BEDSIDE (test 98 MG/DL 70-110 N Perfor med by certified code = GLUBED) 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 [facility] GLUCOSE [id number] 07:44:00 Test Item Value Reference Range Interpretation Comments GLUCOSE BEDSIDE (test 86 MG/DL 70-110 N Perfor med by certified code = GLUBED) 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 [facility] GLUCOSE [id number] 20:12:00 Test Item Value Reference Range Interpretation Comments GLUCOSE BEDSIDE (test 109 MG/DL 70-110 N Perfor med by certified code = GLUBED) 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 [facility] GLUCOSE [id number] 16:27:00 Test Item Value Reference Range Interpretation Comments GLUCOSE BEDSIDE (test 98 MG/DL 70-110 N Perfor med by certified code = GLUBED) 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 [facility] VANCOMYCIN [id number] 14:11:00 Test Item Value Reference Range Interpretation Comments VANCOMYCIN TROUGH 8.2 mcg/mL 10.0-20.0 L 10-15 mcg/ mL - (test code = VANCT) Cellulit is, Urinary Tract Infection . 15-20 mcg/mL - Bacteremia, Inf ective Endocarditis, Meningitis, Osteomyelitis, Pneumonia, Su re Skin/Soft-Tissu e Infection, Spin al Abscess. 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 [facility] GLUCOSE [id number] 07:36:00 Test Item Value Reference Range Interpretation Comments GLUCOSE BEDSIDE (test 83 MG/DL 70-110 N Perfor med by certified code = GLUBED) 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 15-20 mcg/mL - Bacteremia, Infective Endocarditis, Meningitis, Osteomyelitis, Pneumonia, Su re Skin/Soft-Tissu e Infection, Spin al Abscess. GLUCOSE [id number] 16:51:00 Test Item Value Reference Range Interpretation Comments GLUCOSE BEDSIDE (test 97 MG/DL 70-110 N Perfor med by certified code = GLUBED) 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 [facility] GLUCOSE [id number] 11:19:00 Test Item Value Reference Range Interpretation Comments GLUCOSE BEDSIDE (test 149 MG/DL 70-110 H Perfor med by certified code = GLUBED) 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 [facility] GLUCOSE [id number] 09:02:00 Test Item Value Reference Range Interpretation Comments GLUCOSE BEDSIDE (test 101 MG/DL 70-110 N Perfor med by certified code = GLUBED) 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 [facility] GLUCOSE [id number] 16:24:00 Test Item Value Reference Range Interpretation Comments GLUCOSE BEDSIDE (test 96 MG/DL 70-110 N Perfor med by certified code = GLUBED) 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 [facility] GLUCOSE [id number] 12:34:00 Test Item Value Reference Range Interpretation Comments GLUCOSE BEDSIDE (test 93 MG/DL 70-110 N Perfor med by certified code = GLUBED) 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 [facility] GLUCOSE [id number] 07:59:00 Test Item Value Reference Range Interpretation Comments GLUCOSE BEDSIDE (test 87 MG/DL 70-110 N Perfor med by certified code = GLUBED) 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 [facility] BLOOD UREA [id number] 04:11:00 Test Item Value Reference Range Interpretation Comments BLOOD UREA NITROGEN (test code = 13 mg/dL 7-18 BUN) [id number] 04:11:00 Test Item Value Reference Range Interpretation Comments CREATININE (test code = CREAT) 0.7 mg/dL 0.6-1.3 N GLUCOSE [id number] 20:35:00 Test Item Value Reference Range Interpretation Comments GLUCOSE BEDSIDE (test 106 MG/DL 70-110 N Perfor med by certified code = GLUBED) 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 [facility] GLUCOSE [id number] 16:32:00 Test Item Value Reference Range Interpretation Comments GLUCOSE BEDSIDE (test 109 MG/DL 70-110 N Perfor med by certified code = GLUBED) 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 [facility] COMPREHENSIVE METABOLIC [id number] 16:02:00 Test Item Value Reference Range Interpretation [...] N TOTAL (test code = ALKP) GLUCOSE [id number] 12:00:00 Test Item Value Reference Range Interpretation Comments GLUCOSE BEDSIDE (test 105 MG/DL 70-110 N Perfor med by certified code = GLUBED) 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 [facility] GLUCOSE [id number] 07:18:00 Test Item Value Reference Range Interpretation Comments GLUCOSE BEDSIDE (test 85 MG/DL 70-110 N Perfor med by certified code = GLUBED) 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 [facility] GLUCOSE [id number] 20:30:00 Test Item Value Reference Range Interpretation Comments GLUCOSE BEDSIDE (test 76 MG/DL 70-110 N Perfor med by certified code = GLUBED) 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 [facility] VANCOMYCIN [id number] 17:08:00 Test Item Value Reference Range Interpretation Comments VANCOMYCIN TROUGH 14.2 mcg/mL 10.0-20.0 N 10-15 mcg/ mL - (test code = VANCT) Cellulit is, Urinary Tract Infection . 15-20 mcg/mL - Bacteremia, Infective Endocarditis, Meningitis, Osteomyelitis, Pneumonia, Su re Skin/Soft-Tissu e Infection, Spin al Abscess. 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 [facility] GLUCOSE [id number] 11:46:00 Test Item Value Reference Range Interpretation Comments GLUCOSE BEDSIDE (test 103 MG/DL 70-110 N Perfor med by certified code = GLUBED) 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 [facility] GLUCOSE [id number] 06:48:00 Test Item Value Reference Range Interpretation Comments GLUCOSE BEDSIDE (test 75 MG/DL 70-110 N Perfor med by certified code = GLUBED) 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 [facility] GLUCOSE [id number] 19:41:00 Test Item Value Reference Range Interpretation Comments GLUCOSE BEDSIDE (test 98 MG/DL 70-110 N Perfor med by certified code = GLUBED) 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 [facility] GLUCOSE [id number] 17:07:00 Test Item Value Reference Range Interpretation Comments GLUCOSE BEDSIDE (test 87 MG/DL 70-110 N Perfor med by certified code = GLUBED) 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 [facility] GLUCOSE [id number] 12:34:00 Test Item Value Reference Range Interpretation Comments GLUCOSE BEDSIDE (test 105 MG/DL 70-110 N Perfor med by certified code = GLUBED) 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 [facility] GLUCOSE [id number] 09:08:00 Test Item Value Reference Range Interpretation Comments GLUCOSE BEDSIDE (test 130 MG/DL 70-110 H Perfor med by certified code = GLUBED) 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 [facility] BASIC METABOLIC [id number] 08:05:00 Test Item Value Reference Range Interpretation [...] 9.1 mg/dL 8.0-10.5 N CA) CBC W/AUTO [id number] 07:49:00 Test Item Value Reference Range Interpretation [...] REQUIRED (test code NO = MDIFF) GLUCOSE [id number] 21:23:00 Test Item Value Reference Range Interpretation Comments GLUCOSE BEDSIDE (test 91 MG/DL 70-110 N Perfor med by certified code = GLUBED) 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 [facility] GLUCOSE [id number] 16:42:00 Test Item Value Reference Range Interpretation Comments GLUCOSE BEDSIDE (test 89 MG/DL 70-110 N Perfor med by certified code = GLUBED) 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 [facility] GLUCOSE [id number] 12:20:00 Test Item Value Reference Range Interpretation Comments GLUCOSE BEDSIDE (test 74 MG/DL 70-110 N Perfor med by certified code = GLUBED) 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 [facility] GLUCOSE [id number] 22:34:00 Test Item Value Reference Range Interpretation Comments GLUCOSE BEDSIDE (test 98 MG/DL 70-110 N Perfor med by certified code = GLUBED) 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 [facility] GLUCOSE [id number] 15:35:00 Test Item Value Reference Range Interpretation Comments GLUCOSE BEDSIDE (test 106 MG/DL 70-110 N Perfor med by certified code = GLUBED) 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 [facility] GLUCOSE [id number] 07:51:00 Test Item Value Reference Range Interpretation Comments GLUCOSE BEDSIDE (test 110 MG/DL 70-110 N Perfor med by certified code = GLUBED) 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 [facility] CBC W/AUTO [id number] 07:02:00 Test Item Value Reference Range Interpretation [...] (test NO code = MDIFF) BASIC METABOLIC [id number] 06:15:00 Test Item Value Reference Range Interpretation [...] 21 MCG/ML 50.0-100.0 L = VALP) GLUCOSE [id number] 20:02:00 Test Item Value Reference Range Interpretation Comments GLUCOSE BEDSIDE (test 98 MG/DL 70-110 N Perfor med by certified code = GLUBED) 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 [facility] GLUCOSE [id number] 16:08:00 Test Item Value Reference Range Interpretation Comments GLUCOSE BEDSIDE (test 83 MG/DL 70-110 N Perfor med by certified code = GLUBED) 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 [facility] GLUCOSE [id number] 12:05:00 Test Item Value Reference Range Interpretation Comments GLUCOSE BEDSIDE (test 90 MG/DL 70-110 N Perfor med by certified code = GLUBED) 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 [facility] GLUCOSE [id number] 09:59:00 Test Item Value Reference Range Interpretation Comments GLUCOSE BEDSIDE (test 75 MG/DL 70-110 N Perfor med by certified code = GLUBED) 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 [facility] GLUCOSE [id number] 08:47:00 Test Item Value Reference Range Interpretation Comments GLUCOSE BEDSIDE (test 71 MG/DL 70-110 N Perfor med by certified code = GLUBED) 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 [facility] GLUCOSE [id number] 08:16:00 Test Item Value Reference Range Interpretation Comments GLUCOSE BEDSIDE (test 59 MG/DL 70-110 L Perfor med by certified code = GLUBED) 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 15-20 mcg/mL - Bacteremia, Infective Endocarditis, Meningitis, Osteomyelitis, Pneumonia, Su re Skin/Soft-Tissu e Infection, Spin al Abscess. 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 [facility] BASIC METABOLIC [id number] 07:54:00 Test Item Value Reference Range Interpretation [...] = 9.5 mg/dL 8.0-10.5 N CA) GLUCOSE [id number] 21:02:00 Test Item Value Reference Range Interpretation Comments GLUCOSE BEDSIDE (test 118 MG/DL 70-110 H Perfor med by certified code = GLUBED) 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 [facility] GLUCOSE [id number] 15:58:00 Test Item Value Reference Range Interpretation Comments GLUCOSE BEDSIDE (test 105 MG/DL 70-110 N Perfor med by certified code = GLUBED) 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 [facility] GLUCOSE [id number] 12:08:00 Test Item Value Reference Range Interpretation Comments GLUCOSE BEDSIDE (test 112 MG/DL 70-110 H Perfor med by certified code = GLUBED) 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 [facility] CBC W/AUTO [id number] 08:12:00 Test Item Value Reference Range Interpretation [...] 0.00 x10 3/uL 0.0-0.1 N NRBC#) GLUCOSE [id number] 07:51:00 Test Item Value Reference Range Interpretation Comments GLUCOSE BEDSIDE (test 103 MG/DL 70-110 N [facility] med by certified code = GLUBED) 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 [facility] BASIC METABOLIC [id number] 07:34:00 Test Item Value Reference Range Interpretation [...] = 8.9 mg/dL 8.0-10.5 N CA) GLUCOSE [id number] 20:06:00 Test Item Value Reference Range Interpretation Comments GLUCOSE BEDSIDE (test 138 MG/DL 70-110 H Perfor med by certified code = GLUBED) 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 15-20 mcg/mL - Bacteremia, Infective Endocarditis, Meningitis, Osteomyelitis, Pneumonia, Su re Skin/Soft-Tissu e Infection, Spin al Abscess. 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 [facility] CBC W/AUTO [id number] 07:22:00 Test Item Value Reference Range Interpretation [...] 0.00 x10 3/uL 0.0-0.1 N NRBC#) GLUCOSE [id number] 22:30:00 Test Item Value Reference Range Interpretation Comments GLUCOSE BEDSIDE (test 187 MG/DL 70-110 H Perfor med by certified code = GLUBED) 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 [facility] GLUCOSE [id number] 20:31:00 Test Item Value Reference Range Interpretation Comments GLUCOSE BEDSIDE (test 57 MG/DL 70-110 L Perfor med by certified code = GLUBED) 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 [facility] GLUCOSE [id number] 16:56:00 Test Item Value Reference Range Interpretation Comments GLUCOSE BEDSIDE (test 100 MG/DL 70-110 N Perfor med by certified code = GLUBED) 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 [facility] [id number] 08:32:00 Test Item Value Reference Range Interpretation Comments HGBA1C% (test code = HGBA1C%) 5.6 %A1C 4.8-6.0 N BASIC METABOLIC [id number] 08:08:00 Test Item Value Reference Range Interpretation [...] (test code = LDL) NEAR OPTIM AL/ABOVE [id number] 89 HIGH>HR=981 KALE Y HIGH*Guidelines provided by the National Choles terol EducationProgra m Adult Treatment Panel III Indication for Test: Malabsorption/MalnutritioT4 [id number] 08:08:00 Test Item Value Reference Range Interpretation Comments T4 FREE (test code = T4F) 1.1 ng/dL 0.77-1.61 N Indication for Test: Malabsorption/MalnutritioTHYROID STIMULATING HORMONE 2021-10-29 08:08:00 Test Item Value Reference Range Interpretation Comments THYROID STIMULATING 3.95 0.42-5.47 N Results in HORMONE (test code = TSH) mi lli-International Units/mL Indication for Test: Malabsorption/MalnutritioVITAMIN D 37-[id number] 08:08:00 Test Item Value Reference Range Interpretation Comments VITAMIN D 25-HYDROXY (test code = 25.2 ng/mL 30-100 L VITD25) Indication for Test: Malabsorption/MalnutritioCBC W/AUTO [id number] 07:33:00 Test Item Value Reference Range Interpretation [...] REQUIRED (test code NO = MDIFF) GLUCOSE [id number] 06:41:00 Test Item Value Reference Range Interpretation Comments GLUCOSE BEDSIDE (test 68 MG/DL 70-110 L Perfor med by certified code = GLUBED) 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 [facility] GLUCOSE [id number] 21:16:00 Test Item Value Reference Range Interpretation Comments GLUCOSE BEDSIDE (test 114 MG/DL 70-110 H Perfor med by certified code = GLUBED) 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 [facility] GLUCOSE [id number] 19:47:00 Test Item Value Reference Range Interpretation Comments GLUCOSE BEDSIDE (test 82 MG/DL 70-110 N Perfor med by certified code = GLUBED) 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 [facility] GLUCOSE [id number] 18:43:00 Test Item Value Reference Range Interpretation Comments GLUCOSE BEDSIDE (test 66 MG/DL 70-110 L Perfor med by certified code = GLUBED) 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 [facility] GLUCOSE [id number] 13:46:00 Test Item Value Reference Range Interpretation Comments GLUCOSE BEDSIDE (test 85 MG/DL 70-110 N Perfor med by certified code = GLUBED) 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 [facility] GLUCOSE [id number] 13:11:00 Test Item Value Reference Range Interpretation Comments GLUCOSE BEDSIDE (test 55 MG/DL 70-110 L Perfor med by certified code = GLUBED) 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 [facility] GLUCOSE [id number] 09:02:00 Test Item Value Reference Range Interpretation Comments GLUCOSE BEDSIDE (test 95 MG/DL 70-110 N Perfor med by certified code = GLUBED) 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1 mmol/L 0.4-1.9 H - DOP ART COFFEE SOMMELIER LEVEL [id number] 00:00:00 [facility] HAL FREDERICKName: VIKA CHEN : 1965 Sex: M Name: VIKA CHEN [facility] : 1965 Age/S: 56 / M [address] [place] [address] Unit #: [id number] Loc: [place] [address] Phys: Donald Dodson DPM Acct: [id number] Dis Date: Status: ADM IN PHONE #: [phone] Exam Date: 10/28/2021 1315 FAX #: [phone] Reason: gangrene left foot EXAMS:CPT CODE: [id number] DOP ART COFFEE SOMMELIER LEVEL MAMTA [id number] PROCEDURE INFORMATION: Exam: US Duplex Lower Extremity [...] superficial femoral artery. Monophasic flow is seen inthe distal right superficial femoral artery, right popliteal artery and right dorsalis pedis artery.Dampened monophasic flow in the right posterior tibial artery. Scattered atherosclerotic disease seen about the right lower extremity arteries. Left lower extremity: The left ankle-brachial index is 0.50 representing moderate arterial disease. Multiphasic flow is seen in the left common femoral artery. Monophasic flow is seen in the proximal left superficial femoral artery. Arterial flow is not seenin the mid left superficial femoral artery. Monophasic [...] 1 Signed Report (CONTINUED) Name: VIKA CHEN [facility] : 1965Age/S: 56 / M [address] [place] [address] Blvd Unit #: [id number] Loc: [place] [address] Phys: Donald Dodson ADPGideon Acct: [id number] Dis Date: Status: ADM IN PHONE #: [phone] Exam Date: 10/28/2021 1315 FAX#: [phone] Reason: gangrene left foot EXAMS: CPT CODE: [id number] DOP ART COFFEE SOMMELIER LEVEL MAMTA [address] &lt ;Continued> CC: Savanna Lira MD; Roselia Burton MD; Donald Dodson DPM Technologist: Sari Ontiveros RDMS(AB) Trnscb Date/Time: 10/28/2021 (1321) [id number] Orig Print D/T: S: 10/28/2021 (1322) Probe: PAGE 2 Signed Report- XR FOOT 2 VIEWS [id number] 00:00:00 [facility] : 1965 Sex: M FAX: Savanna Louise Johanny Meneses [phone] [place]: St: REG FAX: Angelo Oro NP [phone] Name: VIKA CHEN [facility] HalDona Ana : 1965 Age/S: 56/M [address] [place] [address] Unit #: [id number] Loc: [place] [address] Phys: Angelo Oro NP Acct: [id number] Dis Date: Status: REG ER PHONE #: [phone] Exam Date: 10/27/2021 2350 FAX #: [phone] Reason: L foot pain EXAMS: CPT CODE: [id number] XR FOOT 2 VIEWS 35537 PROCEDURE INFORMATION: Exam: XR Left Foot Exam date and time: 10/27/2021 11:36 PM Age: 56 years old Clinical indication: Pain; Foot and other: Eval wound; Left; Additional info: L foot pain TECHNIQUE: Imaging protocol: XR Left foot. Views: 1 or 2 views. AP and Lateral COMPARISON: No relevantprior studies available. FINDINGS: Bones/joints: Osteopenia significantly limits [...] Kelly(R) Trnscrd Date/Time/By: 10/28/2021 (0000) : By: KenyaHERBERT Orig Print D/T: S: 10/28/2021 (0000) PAGE 1 Signed ReportBASIC METABOLIC [id number] 23:22:00 Test Item Value Reference Range Interpretation [...] 9.2 mg/dL 8.0-10.5 N CA) CBC W/AUTO [id number] 23:11:00 Test Item Value Reference Range Interpretation [...] 0.0-0.1 N NRBC#) - XR CHEST 1 [id number] 00:00:00 [facility] : 1965 Sex: M FAX: Dominguez SongJaniya ballardloli Meneses [phone] [place]: St: REG FAX: Angelo Oro NP [phone] Name: VIKA CHEN [facility] HalDona Ana : 1965 Age/S: 56/M [address] [place] [address] Unit #: [id number] Loc: [place] [address] Phys: Angelo Oro NP Acct: [id number] Dis Date: Status: REG ER PHONE #: [phone] Exam Date: 10/27/2021 2348 FAX #: [phone] Reason: Cough EXAMS: CPT CODE: [id number] XR CHEST 1 V 01923 PROCEDURE INFORMATION: Exam: XR Chest Exam date [...] No radiographically identified acute cardiopulmonary findings. at 7325 Reported and signed by: Ewelina Potter M.D. CC: Savanna Lira MD; Angelo Oro NP Technologist: RT Kelly(R) TrnscrdDate/Time/By: 10/27/2021 (1415) : By: [email or web address] Orig Print D/T: S: 10/27/2021 (2065) PAGE 1 Signed ReportGLUCOMETER GLUCOSE- LAB USE [id number] 17:16:00 Test Item Value Reference Range Interpretation Comments GLUCOMETER (test code 116 mg/dL 70-100 H CLEANE D METERMeter ID: = GMG) [id number] tor: [address] [facility] GLUCOMETER GLUCOSE- LAB USE [id number] 07:52:00 Test Item Value Reference Range Interpretation Comments GLUCOMETER (test code = 89 mg/dL 70-100 NANCY DIDI METERMeter ID: GMG) [id number] tor: 6297 ROXANNE MATTHEWSIEN [id number] 22:37:00 Test Item Value Reference Range Interpretation Comments FOLATE (test code = A75) 33.1 ng/mL 3.1-17.5 H THYROID PANEL/SCREEN (TSH)2019-08-10 22:32:00 Test Item Value Reference Range Interpretation Comments TSH (test code = A57) 1.480 uIU/mL 0.358-3.740 LIPID [id number] 22:17:00 Test Item Value Reference Range Interpretation Comments CHOLESTROL (test code = 44A) 183 mg/dL 140-200 TRIGLYCERI (test code = 42B) 139 mg/dL <=149 HDL (test code = 83D) 41.0 mg/dL 40.0-60.0 LDL (test code = 34B) 115 mg/dL <=99 H CHL/HDL (test code = CHR) 4.5 0.0-3.4 H [id number] 22:17:00 Test Item Value Reference Range Interpretation Comments PREALBUMIN (test code = 08E) 28 mg/dL 18-38 [id number] 21:57:00 Test Item Value Reference Range Interpretation Comments MAGNESIUM (test code = 48A) 2.2 mg/dL 1.8-2.4 COMPREHENSIVE METABOLIC [id number] 18:16:00 Test Item Value Reference Range Interpretation [...] (test code = 31A) 47 IU/L <=78 [id number] 18:16:00 Test Item Value Reference Range Interpretation Comments ACETAMINPH (test code = 94M) <2.0 ug/mL 10.0-30.0 L ALCOHOL BLOOD (ETOH)2019-08-10 18:15:00 Test Item Value Reference Range Interpretation Comments ETOH (test code = HALC) ETHANOL The result is to be used only for medical purposes ALCOHOL (test code = <10 mg/dL <=10 56A) PRO TIME AND [id number] 18:14:00 Test Item Value Reference Range Interpretation [...] LMW Heparin. Order Code is ANTI-XA CARDIAC [id number] 18:14:00 Test Item Value Reference Range Interpretation Comments TROPONIN I (test code = A84) <0.015 ng/mL 0.000-0.045 AMMONIA [id number] 18:10:00 Test Item Value Reference Range Interpretation Comments AMMONIA (test code = 54A) 21 umol/L 11-32 [id number] 18:10:00 Test Item Value Reference Range Interpretation Comments SALICYLATE (test code = 94B) 2.7 mg/dL 2.8-20.0 L XR CHEST 1 VIEW [id number] 18:05:16LOCATION: [id number]: 54-year-old male, psychiatric workup.COMMENT: A frontal chest [...] ng/mL Barbiturates 200 ng/mL Opiates 2000 ng/mL [id number] 17:59:00 Test Item Value Reference Range Interpretation [...]
[2023-07-26 19:12] LABS: Protime INR 1.05
[2023-07-26 19:13] LABS: Absolute Lymphocytes (CBC) 1.2 K/uL (0.7-4.9); Hematocrit 40.4 % (39.6-49.0); MCV 92.3 fL (80-100); MPV 7.4 fL (7.6-11.3); Platelets 197 thou/uL (152-406); RBC Red Blood Cell Count 4.37 M/uL (4.33-5.43)
[2023-07-26] MEDS ORDERED: AZITHROMYCIN 500 MG INJ IVPB ONE (19:23)
[2023-07-26] MEDS ORDERED: CEFTRIAXONE 1000 MG/VIAL ONE (19:23)
[2023-07-26] MEDS ORDERED: NA CHLORIDE 0.9% 250 ML ONE (19:23)
[2023-07-26] MEDS ORDERED: ACETAMINOPHEN 500 MG TAB ONE (19:23)
--- NOTE | 2023-07-26 19:31 | RAD REPORT ---
EXAM DESCRIPTION: RAD - Chest Single View - 07/26/2023 7:07 pm CLINICAL HISTORY: COUGH Chest pain. COMPARISON: <Comparisons> FINDINGS: Portable technique limits examination quality. Moderate bilateral pulmonary opacities are present which may represent pneumonia or pulmonary edema. The heart is upper limit normal in size. No displaced fractures.
[2023-07-26 19:52] LABS: Bilirubin Total 0.3 mg/dL (0.2-1.0); Potassium 4.3 mEq/L (3.5-5.1); Protein, Total 9.2 g/dL (6.4-8.2)
[2023-07-26] MEDS ORDERED: NA CHLORIDE 0.9% 1,000 ML ONE (20:05)
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
[2023-07-26] MEDS ORDERED: ACETAMINOPHEN 500 MG TAB PO PRN (20:49)
[2023-07-26] MEDS ORDERED: ALBUTEROL 2.5 MG/3 ML NEB SOL NEB PRN (20:49)
[2023-07-26] MEDS ORDERED: MORPHINE 2 MG/ML SYR IV PRN (20:49)
[2023-07-26] MEDS ORDERED: ONDANSETRON 4 MG/2 ML VIAL IV PRN (20:49)
[2023-07-26 20:50] LABS: Blood Morphology Comment NOT SEEN (NOT SEEN); Platelet Estimate ADEQ; White Blood Cell Scan OK (OK)
[2023-07-26] MEDS ORDERED: DOCUSATE NA 100 MG CAP PO PRN (23:57)
[2023-07-27] MEDS ORDERED: LACTULOSE 20 GM/30 ML UCUP PO PRN (00:14)
[2023-07-27] MEDS: IPRATROPIUM BROM 0.5MG/2.5ML NEB SCH ×4 (02:35→20:10)
[2023-07-27 06:33] VITALS: BMI 23.7
[2023-07-27 07:20] LABS: Absolute Lymphocytes (CBC) 1.7 K/uL (0.7-4.9); Hematocrit 35.4 % (39.6-49.0); Lymphocytes % 10.7 % (15.3-44.8); MPV 7.1 fL (7.6-11.3); Platelets 182 thou/uL (152-406); RBC Red Blood Cell Count 3.88 M/uL (4.33-5.43)
[2023-07-27 07:33] LABS: AST/SGOT 14 U/L (15-37); Albumin 2.5 g/dL (3.4-5.0); Alkaline Phosphatase 49 U/L (45-117); BUN Blood Urea Nitrogen 12 mg/dL (7-18); Bicarbonate 26 mEq/L (21-32); Bilirubin Total 0.3 mg/dL (0.2-1.0); Glomerular Filtration Rate 99 ml/min (=/>90); Glucose Level 88 mg/dL (74-106); Protein, Total 7.9 g/dL (6.4-8.2); Sodium Level 138 mEq/L (136-145)
[2023-07-27 07:38] LABS: ALT/SGPT < 10 U/L (16-61)
[2023-07-27] MEDS: LEVOTHYROXINE SOD 0.025 MG TAB PO SCH (08:19)
[2023-07-27] MEDS ORDERED: ALBUTEROL 2.5 MG/3 ML NEB SOL NEB SCH (09:00)
[2023-07-27] MEDS: CODEINE 30MG/APAP 300MG TAB PO SCH ×3 (09:00→21:19)
[2023-07-27] MEDS: IPRATROPIUM BROM 0.5MG/2.5ML IH SCH ×2 (09:00→14:00)
[2023-07-27] MEDS: PREGABALIN 50 MG CAP PO SCH ×3 (09:47→21:18)
[2023-07-27] MEDS: AZITHROMYCIN IV 500 MG in NA CHLORIDE 0.9% 250 ML IVPB SCH (09:56)
[2023-07-27] MEDS: BUSPIRONE HCL 15 MG TABLET PO SCH ×3 (09:57→21:19)
[2023-07-27] MEDS: SERTRALINE HCL 100 MG TAB PO SCH (09:57)
[2023-07-27] MEDS: QUETIAPINE 100MG TAB PO SCH (09:57)
[2023-07-27] MEDS: ASPIRIN EC 81 MG TAB PO SCH (09:57)
[2023-07-27] MEDS: FUROSEMIDE 20 MG/ 2ML VIAL IV SCH ×2 (09:57→15:59)
[2023-07-27] MEDS: DIVALPROEX ER 250 MG TAB PO SCH ×3 (09:57→21:18)
[2023-07-27] MEDS: CEFTRIAXONE 1,000 MG in NA CHLORIDE 0.9% 50 ML IVPB SCH (09:57)
[2023-07-27] MEDS: DULERA 200/5 (MOMETASONE/FORMOTEROL) INHALER IH SCH ×2 (09:58→21:19)
[2023-07-27] MEDS: ALBUTEROL 2.5 MG/3 ML NEB SOL NEB SCH ×2 (13:45→20:10)
--- NOTE | 2023-07-27 15:50 | P.PN ---
Subjective Date of Service: 07/28/23 Chief Complaint: SOB Subjective: No new changes, Improving Physical Examination - Vital Signs Temperature: 97.8 F Blood Pressure: 99/55 Pulse: 88 Respirations: 16 Pulse Ox (%): 92 - Physical Exam General: Alert HEENT: Atraumatic Neck: Supple Respiratory: Normal air movement Cardiovascular: Regular rate/rhythm, Normal S1 S2 Gastrointestinal: Soft and benign Musculoskeletal: No swelling - Studies Laboratory Data (last 24 hrs) 07/26/23 07/26/23 07/26/23 18:40 18:40 18:40 WBC 13.80 H Hgb 13.4 L Hct 40.4 Plt Count 197 PT 11.5 INR 1.05 APTT 23.2 L Sodium 137 Potassium 4.3 BUN 13 Creatinine 1.03 Glucose 92 Total Bilirubin 0.3 AST 19 ALT 14 L Alkaline Phosphatase 60 Microbiology Data (last 24 hrs): 07/26/23 18:40 Nasopharnyx Influenza Type A Antigen Screen - Final 07/26/23 18:40 Nasopharnyx Influenza Type B Antigen Screen - Final Assessment And Plan - Plan Assessment and Plan - Problems (Diagnosis) (1) Acute hypoxic respiratory failure Current Visit: Yes Status: Acute Plan: Oxygen supplementation and wean off as tolerated. Bronchodilators as needed (2) CHF exacerbation Current Visit: Yes Status: Acute Plan: Aggressive diuresis as tolerated. Monitor closely on telemetry. Continue home medications and titrate as needed (3) COPD (chronic obstructive pulmonary disease) Current Visit: No Status: Chronic Plan: Continue bronchodilators Qualifiers: COPD type: COPD with acute exacerbation Qualified Code(s): J44.1 - Chronic obstructive pulmonary disease with (acute) exacerbation (4) Depressive disorder Onset Date: 09/22/15 Current Visit: No Status: Chronic Plan: Continue home medications and titrate as needed (5) Hemiparesis, left Onset Date: 09/22/15 Current Visit: No Status: Chronic Plan: Supportive management (6) HTN (hypertension) Onset Date: 09/22/15 Current Visit: No Status: Chronic Plan: Antihypertensives continued Titrate as needed Qualifiers: Hypertension type: essential hypertension Qualified Code(s): I10 - Essential (primary) hypertension (7) Pneumonia Current Visit: Yes Status: Acute Plan: not significantly overt. we will follow clinically. Discharge Plan: Longterm Plan to discharge in: in am. - Advance Directives Does patient have a Living Will: No Does patient have a Durable POA for Healthcare: No - Code Status/Comfort Care Code Status: Full Code Physician Review: Patient Assessed, Agree with Above Assessment and Plan Physician Review: Patient Assessed, Agree with Above Assessment and Plan
[2023-07-27] MEDS: ARFORMOTEROL TARTRATE 15 MCG/2 ML VIAL.NEB NEB SCH (20:10)
[2023-07-27] MEDS ORDERED: ATORVASTATIN 10 MG TAB PO SCH (21:00)
[2023-07-28] MEDS: IPRATROPIUM BROM 0.5MG/2.5ML NEB SCH ×3 (01:30→13:50)
[2023-07-28] MEDS: ALBUTEROL 2.5 MG/3 ML NEB SOL NEB SCH ×3 (01:30→13:50)
[2023-07-28] MEDS: ARFORMOTEROL TARTRATE 15 MCG/2 ML VIAL.NEB NEB SCH (08:10)
[2023-07-28] MEDS: FUROSEMIDE 20 MG/ 2ML VIAL IV SCH (09:00)
[2023-07-28] MEDS: BUSPIRONE HCL 15 MG TABLET PO SCH (09:00)
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
[2023-07-28 10:46] VITALS: BP 99/55
[2023-07-28 12:23] VITALS: TEMP 98
[2023-07-28] MEDS: DIVALPROEX ER 250 MG TAB PO SCH (12:43)
[2023-07-28] MEDS: PREGABALIN 50 MG CAP PO SCH (12:43)
[2023-07-28] MEDS: QUETIAPINE 100MG TAB PO SCH (12:44)
[2023-07-28] MEDS: ASPIRIN EC 81 MG TAB PO SCH (12:44)
[2023-07-28] MEDS: LEVOTHYROXINE SOD 0.025 MG TAB PO SCH (12:45)
[2023-07-28] MEDS: SERTRALINE HCL 100 MG TAB PO SCH (12:45)
[2023-07-28] MEDS: CODEINE 30MG/APAP 300MG TAB PO SCH (12:45)
[2023-07-28] MEDS: CEFTRIAXONE 1,000 MG in NA CHLORIDE 0.9% 50 ML IVPB SCH (12:47)
[2023-07-28] MEDS: DULERA 200/5 (MOMETASONE/FORMOTEROL) INHALER IH SCH (12:48)
[2023-07-28] MEDS: AZITHROMYCIN IV 500 MG in NA CHLORIDE 0.9% 250 ML IVPB SCH (12:49)
[2023-07-28 14:43] VITALS: O2SAT 94
--- NOTE | 2023-07-30 14:24 | EKG ---
Test Date: 2023-07-26 Test Time: 19:27:43 Vocational Coordinator: VIRI MEASUREMENT RESULTS: Intervals: Rate: 104 DE: 158 QRSD: 72 QT: 314 QTc: 412 Wade: P: 59 DE: 158 QRS: 14 T: 49 INTERPRETIVE STATEMENTS: Sinus tachycardia Anterior infarct, age undetermined Abnormal ECG Compared to ECG 07/11/2023 18:32:46 Sinus rhythm no longer present Myocardial infarct finding still present Electronically Signed On 07-30-23 14:14:08 [employer] by Lloyd Menezes
== END 2023-07-28 14:29 | DRG 871 ==
LOC: ER 18:11 → ERHOLD 20:50 → 4TH 23:20
PROVIDERS: ADMIT Family Medicine; ATTEND Internal Medicine Nephrology
DX: A41.9 Sepsis, unspecified organism (principal); J18.9 Pneumonia, unspecified organism; J96.01 Acute respiratory failure with hypoxia; G81.94 Hemiplegia, unspecified affecting left nondominant side; J44.0 Chronic obstructive pulmonary disease with (acute) lower respiratory infection; E87.20 Acidosis, unspecified; I50.9 Heart failure, unspecified; I11.0 Hypertensive heart disease with heart failure; F32.A Depression, unspecified; Z88.7 Allergy status to serum and vaccine; Z11.52 Encounter for screening for COVID-19; Z79.82 Long term (current) use of aspirin; Z87.898 Personal history of other specified conditions; Z79.899 Other long term (current) drug therapy; Z79.890 Hormone replacement therapy
CPT/HCPCS: 36415; 71045; 80053; 83605; 85025; 85610; 85730; 87040; 87635; 87804; 93005; 94640; 94760; 96361; 96365; 96366; 99285; J0696; J1940; J3535; J7030; J7050; J7605; J7613; J7644

== ENCOUNTER 2024-06-11 18:42 | Inpatient (IN) | payer OTHER ==
--- OUTSIDE RECORDS SUMMARY | 2024-06-11 18:49 | XMS REPORT | Continuity of Care Document ---
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 No 1 Q1D quetiapine 400 mg tablet Take 1 tablet every day by oral route at bedtime. [facility] hydrocortis one 2.5 % topical cream hydrocortis one 2.5 % topical cream No hydrocorti sone 2.5 % topical cream [facility] Celexa Celexa Yes Na [place] 1 tablet [facility] Lisinopril Lisinopril Yes Na Arte[place] 1 tablet [facility] Lipitor Lipitor Yes Na Arteaga 1 tablet [facility] Immunizations Ordered Immunization Name Filled Immunization Name Date Status Comments Source SARS-COV-2 COVID-19 PFIZER VACCINE 2021-09-08 00:00:00 Completed [facility] SARS-COV-2 COVID-19 PFIZER VACCINE 2021-09-08 00:00:00 Completed [facility] SARS-COV-2 COVID-19 PFIZER VACCINE 2021-09-08 00:00:00 Completed [facility] Influenza Virus Vaccine 2021-07-12 00:00:00 Completed [facility] Influenza Virus Vaccine 2021-07-12 00:00:00 Completed [facility] Influenza Virus Vaccine 2021-07-12 00:00:00 Completed [facility] SARS-COV-2 COVID-19 PFIZER VACCINE 2020-10-22 00:00:00 Completed [facility] SARS-COV-2 COVID-19 PFIZER VACCINE 2020-10-22 00:00:00 Completed [facility] SARS-COV-2 COVID-19 PFIZER VACCINE 2020-10-22 00:00:00 Completed [facility] SARS-COV-2 COVID-19 PFIZER VACCINE 2020-10-01 00:00:00 Completed [facility] SARS-COV-2 COVID-19 PFIZER VACCINE 2020-10-01 00:00:00 Completed [facility] SARS-COV-2 COVID-19 PFIZER VACCINE 2020-10-01 00:00:00 Completed [facility] Tdap Tdap Unknown Completed [facility] ical influenza, unspecified formulation influenza, unspecified formulation Unknown Completed [facility] Pneumococcal conjugate PCV20, polysaccharide [id number] conjugate, adjuvant, PF Pneumococcal conjugate PCV20, polysaccharide [id number] conjugate, adjuvant, PF Unknown Completed [facility] influenza, injectable, quadrivalent influenza, injectable, quadrivalent Unknown Completed [facility] COVID-19 (SARS-COV-2) vaccine, unspecified COVID-19 (SARS-COV-2) vaccine, unspecified Unknown Completed [facility] pneumococcal polysaccharide PPV23 pneumococcal polysaccharide PPV23 Unknown Completed [facility] influenza, seasonal, injectable, preservative free influenza, seasonal, injectable, preservative free Unknown Completed [facility] Vital Signs Vital Name Observation Time Observation Value Comments S ource Body Weight 2024-06-06 00:00:00 2688 [oz_av] [facility] BMI (Body Mass Index) 2024-06-06 00:00:00 27.1 kg/m2 [facility] Height 2024-06-06 00:00:00 66 [in_i] [facility] BP Diastolic 2024-06-06 00:00:00 68 mm[Hg] [facility] BP Systolic 2024-06-06 00:00:00 118 mm[Hg] [facility] BP Systolic 2024-05-18 00:00:00 130 mm[Hg] [facility] Height 2024-05-18 00:00:00 66 [in_i] [facility] BP Diastolic 2024-05-18 00:00:00 85 mm[Hg] [facility] Body Weight 2024-05-18 00:00:00 2672 [oz_av] [facility] BMI (Body Mass Index) 2024-05-18 00:00:00 27 kg/m2 [facility] BMI (Body Mass Index) 2024-04-27 00:00:00 27 kg/m2 [facility] BP Systolic 2024-04-27 00:00:00 105 mm[Hg] [facility] Height 2024-04-27 00:00:00 66 [in_i] [facility] Body Weight 2024-04-27 00:00:00 2672 [oz_av] [facility] BP Diastolic 2024-04-27 00:00:00 69 mm[Hg] [facility] BMI (Body Mass Index) 2024-04-26 00:00:00 27 kg/m2 [facility] Body Weight 2024-04-26 00:00:00 2672 [oz_av] [facility] BP Diastolic 2024-04-26 00:00:00 70 mm[Hg] [facility] BP Systolic 2024-04-26 00:00:00 121 mm[Hg] [facility] Height 2024-04-26 00:00:00 66 [in_i] [facility] BMI (Body Mass Index) 2024-04-13 00:00:00 26.5 kg/m2 [facility] Body Weight 2024-04-13 00:00:00 2624 [oz_av] [facility] Height 2024-04-13 00:00:00 66 [in_i] [facility] BP Systolic 2024-04-13 00:00:00 127 mm[Hg] [facility] BP Diastolic 2024-04-13 00:00:00 78 mm[Hg] [facility] Body Weight 2024-04-02 00:00:00 2624 [oz_av] [facility] BMI (Body Mass Index) 2024-04-02 00:00:00 26.5 kg/m2 [facility] Height 2024-04-02 00:00:00 66 [in_i] [facility] BP Diastolic 2024-04-02 00:00:00 78 mm[Hg] [facility] BP Systolic 2024-04-02 00:00:00 124 mm[Hg] [facility] Body Weight 2024-03-30 00:00:00 2624 [oz_av] [facility] Height 2024-03-30 00:00:00 66 [in_i] [facility] BMI (Body Mass Index) 2024-03-30 00:00:00 26.5 kg/m2 [facility] BP Systolic 2024-03-30 00:00:00 111 mm[Hg] [facility] BP Diastolic 2024-03-30 00:00:00 74 mm[Hg] [facility] BP Systolic 2024-03-28 00:00:00 125 mm[Hg] [facility] Height 2024-03-28 00:00:00 66 [in_i] [facility] Body Weight 2024-03-28 00:00:00 2624 [oz_av] [facility] BMI (Body Mass Index) 2024-03-28 00:00:00 26.5 kg/m2 [facility] BP Diastolic 2024-03-28 00:00:00 80 mm[Hg] [facility] BP Systolic 2024-03-09 00:00:00 121 mm[Hg] [facility] BP Diastolic 2024-03-09 00:00:00 80 mm[Hg] [facility] Height 2024-03-09 00:00:00 66 [in_i] [facility] Body Weight 2024-03-09 00:00:00 2624 [oz_av] [facility] BMI (Body Mass Index) 2024-03-09 00:00:00 26.5 kg/m2 [facility] BP Diastolic 2024-03-02 00:00:00 62 mm[Hg] [facility] Body Weight 2024-03-02 00:00:00 2623.84 [oz_av] [facility] Height 2024-03-02 00:00:00 66 [in_i] [facility] BMI (Body Mass Index) 2024-03-02 00:00:00 26.5 kg/m2 [facility] BP Systolic 2024-03-02 00:00:00 114 mm[Hg] [facility] BP Systolic 2024-02-23 00:00:00 118 mm[Hg] [facility] Height 2024-02-23 00:00:00 66 [in_i] [facility] BMI (Body Mass Index) 2024-02-23 00:00:00 26.5 kg/m2 [facility] BP Diastolic 2024-02-23 00:00:00 53 mm[Hg] [facility] Body Weight 2024-02-23 00:00:00 2624 [oz_av] [facility] Height 2024-02-17 00:00:00 66 [in_i] [facility] Body Weight 2024-02-17 00:00:00 2642 [oz_av] [facility] BP Diastolic 2024-02-17 00:00:00 78 mm[Hg] [facility] BP Systolic 2024-02-17 00:00:00 124 mm[Hg] [facility] BMI (Body Mass Index) 2024-02-17 00:00:00 26.7 kg/m2 [facility] Body Weight 2024-02-10 00:00:00 2642 [oz_av] [facility] BMI (Body Mass Index) 2024-02-10 00:00:00 26.7 kg/m2 [facility] BP Diastolic 2024-02-10 00:00:00 75 mm[Hg] [facility] BP Systolic 2024-02-10 00:00:00 130 mm[Hg] [facility] Height 2024-02-10 00:00:00 66 [in_i] [facility] BMI (Body Mass Index) 2024-01-27 00:00:00 26.7 kg/m2 [facility] Height 2024-01-27 00:00:00 66 [in_i] [facility] Body Weight 2024-01-27 00:00:00 2642 [oz_av] [facility] BP Diastolic 2024-01-27 00:00:00 72 mm[Hg] [facility] BP Systolic 2024-01-27 00:00:00 112 mm[Hg] [facility] BMI (Body Mass Index) 2024-01-09 00:00:00 26.3 kg/m2 [facility] Height 2024-01-09 00:00:00 66 [in_i] [facility] Body Weight 2024-01-09 00:00:00 2610 [oz_av] [facility] BP Diastolic 2024-01-09 00:00:00 75 mm[Hg] [facility] BP Systolic 2024-01-09 00:00:00 135 mm[Hg] [facility] BP Systolic 2024-01-06 00:00:00 132 mm[Hg] [facility] BP Diastolic 2024-01-06 00:00:00 70 mm[Hg] [facility] Height 2024-01-06 00:00:00 66 [in_i] [facility] Body Weight 2024-01-06 00:00:00 2610 [oz_av] [facility] BMI (Body Mass Index) 2024-01-06 00:00:00 26.3 kg/m2 [facility] Body Weight 2023-12-23 00:00:00 2610 [oz_av] [facility] Height 2023-12-23 00:00:00 66 [in_i] [facility] BMI (Body Mass Index) 2023-12-23 00:00:00 26.3 kg/m2 [facility] BP Diastolic 2023-12-23 00:00:00 75 mm[Hg] [facility] BP Systolic 2023-12-23 00:00:00 113 mm[Hg] [facility] Body Weight 2023-12-15 00:00:00 2576 [oz_av] [facility] BP Systolic 2023-12-15 00:00:00 121 mm[Hg] [facility] BP Diastolic 2023-12-15 00:00:00 78 mm[Hg] [facility] Height 2023-12-15 00:00:00 66 [in_i] [facility] BMI (Body Mass Index) 2023-12-15 00:00:00 26 kg/m2 [facility] BMI (Body Mass Index) 2023-11-29 00:00:00 26 kg/m2 [facility] Body Weight 2023-11-29 00:00:00 2576 [oz_av] [facility] Height 2023-11-29 00:00:00 66 [in_i] [facility] BP Systolic 2023-11-29 00:00:00 110 mm[Hg] [facility] BP Diastolic 2023-11-29 00:00:00 70 mm[Hg] [facility] Body Weight 2023-11-18 00:00:00 2576 [oz_av] [facility] BP Systolic 2023-11-18 00:00:00 127 mm[Hg] [facility] BMI (Body Mass Index) 2023-11-18 00:00:00 26 kg/m2 [facility] BP Diastolic 2023-11-18 00:00:00 76 mm[Hg] [facility] Height 2023-11-18 00:00:00 66 [in_i] [facility] BMI (Body Mass Index) 2023-11-11 00:00:00 25.7 kg/m2 [facility] Body Weight 2023-11-11 00:00:00 2544 [oz_av] [facility] BP Systolic 2023-11-11 00:00:00 133 mm[Hg] [facility] BP Diastolic 2023-11-11 00:00:00 66 mm[Hg] [facility] Height 2023-11-11 00:00:00 66 [in_i] [facility] BP Systolic 2023-11-04 00:00:00 121 mm[Hg] [facility] BMI (Body Mass Index) 2023-11-04 00:00:00 25.7 kg/m2 [facility] Height 2023-11-04 00:00:00 66 [in_i] [facility] BP Diastolic 2023-11-04 00:00:00 84 mm[Hg] [facility] Body Weight 2023-11-04 00:00:00 2544 [oz_av] [facility] BMI (Body Mass Index) 2023-10-28 00:00:00 25.7 kg/m2 [facility] BP Systolic 2023-10-28 00:00:00 113 mm[Hg] [facility] Body Weight 2023-10-28 00:00:00 2544 [oz_av] [facility] BP Diastolic 2023-10-28 00:00:00 69 mm[Hg] [facility] Height 2023-10-28 00:00:00 66 [in_i] [facility] BP Diastolic 2023-01-26 00:00:00 83 mm[Hg] [facility] Height 2023-01-26 00:00:00 66 [in_i] [facility] BMI (Body Mass Index) 2023-01-26 00:00:00 28.9 kg/m2 [facility] BP Systolic 2023-01-26 00:00:00 135 mm[Hg] [facility] Body Weight 2023-01-26 00:00:00 2869 [oz_av] [facility] BP Diastolic 2022-12-22 00:00:00 64 mm[Hg] [facility] Height 2022-12-22 00:00:00 66 [in_i] [facility] BMI (Body Mass Index) 2022-12-22 00:00:00 28.9 kg/m2 [facility] BP Systolic 2022-12-22 00:00:00 127 mm[Hg] [facility] Body Weight 2022-12-22 00:00:00 2869 [oz_av] [facility] BP Diastolic 2022-12-17 00:00:00 60 mm[Hg] [facility] Height 2022-12-17 00:00:00 66 [in_i] [facility] BMI (Body Mass Index) 2022-12-17 00:00:00 28.9 kg/m2 [facility] BP Systolic 2022-12-17 00:00:00 121 mm[Hg] [facility] Body Weight 2022-12-17 00:00:00 2864 [oz_av] [facility] BP Diastolic 2022-12-15 00:00:00 68 mm[Hg] [facility] Height 2022-12-15 00:00:00 66 [in_i] [facility] BMI (Body Mass Index) 2022-12-15 00:00:00 28.9 kg/m2 [facility] BP Systolic 2022-12-15 00:00:00 124 mm[Hg] [facility] Body Weight 2022-12-15 00:00:00 2864 [oz_av] [facility] BP Diastolic 2022-12-10 00:00:00 67 mm[Hg] [facility] Height 2022-12-10 00:00:00 66 [in_i] [facility] BMI (Body Mass Index) 2022-12-10 00:00:00 28.9 kg/m2 [facility] BP Systolic 2022-12-10 00:00:00 125 mm[Hg] [facility] Body Weight 2022-12-10 00:00:00 2864 [oz_av] [facility] BP Diastolic 2022-12-07 00:00:00 60 mm[Hg] [facility] Height 2022-12-07 00:00:00 66 [in_i] [facility] BMI (Body Mass Index) 2022-12-07 00:00:00 28.9 kg/m2 [facility] BP Systolic 2022-12-07 00:00:00 121 mm[Hg] [facility] Body Weight 2022-12-07 00:00:00 2864 [oz_av] [facility] BP Diastolic 2022-11-26 00:00:00 70 mm[Hg] [facility] Height 2022-11-26 00:00:00 66 [in_i] [facility] BMI (Body Mass Index) 2022-11-26 00:00:00 28.9 kg/m2 [facility] BP Systolic 2022-11-26 00:00:00 120 mm[Hg] [facility] Body Weight 2022-11-26 00:00:00 2864 [oz_av] [facility] Systolic blood pressure 2022-11-25 17:25:00 141 mm[Hg] [facility] Diastolic blood pressure 2022-11-25 17:25:00 82 mm[Hg] [facility] Heart rate 2022-11-25 17:25:00 83 /min [facility] Body temperature 2022-11-25 17:25:00 36.22 Vanessa [facility] Oxygen saturation in Arterial blood by Pulse oximetry 2022-11-25 17:25:00 97 /min [place] [facility] Respiratory rate 2022-11-25 17:15:00 18 /min [facility] Body weight 2022-11-25 09:39:00 78.971 kg [facility] BMI 2022-11-25 09:39:00 23.61 kg/m2 [facility] BP Diastolic 2022-11-23 00:00:00 62 mm[Hg] [facility] Height 2022-11-23 00:00:00 66 [in_i] [facility] BP Systolic 2022-11-23 00:00:00 115 mm[Hg] [facility] Body Weight 2022-11-23 00:00:00 2864 [oz_av] [facility] BP Diastolic 2022-11-02 00:00:00 67 mm[Hg] [facility] Height 2022-11-02 00:00:00 66 [in_i] [facility] BMI (Body Mass Index) 2022-11-02 00:00:00 27 kg/m2 [facility] BP Systolic 2022-11-02 00:00:00 99 mm[Hg] [facility] Body Weight 2022-11-02 00:00:00 2672 [oz_av] [facility] BP Diastolic 2022-10-19 00:00:00 70 mm[Hg] [facility] Height 2022-10-19 00:00:00 66 [in_i] [facility] BMI (Body Mass Index) 2022-10-19 00:00:00 27 kg/m2 [facility] BP Systolic 2022-10-19 00:00:00 133 mm[Hg] [facility] Body Weight 2022-10-19 00:00:00 2672 [oz_av] [facility] BP Diastolic 2022-09-29 00:00:00 64 mm[Hg] [facility] Height 2022-09-29 00:00:00 66 [in_i] [facility] BMI (Body Mass Index) 2022-09-29 00:00:00 27 kg/m2 [facility] BP Systolic 2022-09-29 00:00:00 114 mm[Hg] [facility] Body Weight 2022-09-29 00:00:00 2672 [oz_av] [facility] BP Diastolic 2022-09-21 00:00:00 89 mm[Hg] [facility] Height 2022-09-21 00:00:00 66 [in_i] [facility] BMI (Body Mass Index) 2022-09-21 00:00:00 27 kg/m2 [facility] BP Systolic 2022-09-21 00:00:00 117 mm[Hg] [facility] Body Weight 2022-09-21 00:00:00 2672 [oz_av] [facility] BP Diastolic 2022-09-10 00:00:00 70 mm[Hg] [facility] Height 2022-09-10 00:00:00 66 [in_i] [facility] BMI (Body Mass Index) 2022-09-10 00:00:00 27 kg/m2 [facility] BP Systolic 2022-09-10 00:00:00 123 mm[Hg] [facility] Body Weight 2022-09-10 00:00:00 2672 [oz_av] [facility] BP Diastolic 2022-08-24 00:00:00 77 mm[Hg] [facility] Height 2022-08-24 00:00:00 66 [in_i] [facility] BMI (Body Mass Index) 2022-08-24 00:00:00 27 kg/m2 [facility] BP Systolic 2022-08-24 00:00:00 129 mm[Hg] [facility] Body Weight 2022-08-24 00:00:00 2678 [oz_av] [facility] BP Diastolic 2022-07-09 00:00:00 62 mm[Hg] [facility] Height 2022-07-09 00:00:00 66 [in_i] [facility] BMI (Body Mass Index) 2022-07-09 00:00:00 26.5 kg/m2 [facility] BP Systolic 2022-07-09 00:00:00 125 mm[Hg] [facility] Body Weight 2022-07-09 00:00:00 2624 [oz_av] [facility] BP Diastolic 2022-07-06 00:00:00 72 mm[Hg] [facility] Height 2022-07-06 00:00:00 66 [in_i] [facility] BMI (Body Mass Index) 2022-07-06 00:00:00 26.5 kg/m2 [facility] BP Systolic 2022-07-06 00:00:00 114 mm[Hg] [facility] Body Weight 2022-07-06 00:00:00 2624 [oz_av] [facility] BP Diastolic 2022-06-01 00:00:00 65 mm[Hg] [facility] Height 2022-06-01 00:00:00 66 [in_i] [facility] BMI (Body Mass Index) 2022-06-01 00:00:00 25.8 kg/m2 [facility] BP Systolic 2022-06-01 00:00:00 120 mm[Hg] [facility] Body Weight 2022-06-01 00:00:00 2562 [oz_av] [facility] BP Diastolic 2022-05-07 00:00:00 76 mm[Hg] [facility] Height 2022-05-07 00:00:00 66 [in_i] [facility] BMI (Body Mass Index) 2022-05-07 00:00:00 22 kg/m2 [facility] BP Systolic 2022-05-07 00:00:00 130 mm[Hg] [facility] Body Weight 2022-05-07 00:00:00 2180 [oz_av] [facility] BP Diastolic 2022 00:00:00 68 mm[Hg] [facility] Height 2022 00:00:00 66 [in_i] [facility] BMI (Body Mass Index) 2022 00:00:00 23.8 kg/m2 [facility] BP Systolic 2022 00:00:00 148 mm[Hg] [facility] Body Weight 2022 00:00:00 2360 [oz_av] [facility] BP Diastolic 2022-04-06 00:00:00 72 mm[Hg] [facility] Height 2022-04-06 00:00:00 66 [in_i] [facility] BMI (Body Mass Index) 2022-04-06 00:00:00 23.8 kg/m2 [facility] BP Systolic 2022-04-06 00:00:00 118 mm[Hg] [facility] Body Weight 2022-04-06 00:00:00 2360 [oz_av] [facility] BP Diastolic 2022-03-19 00:00:00 78 mm[Hg] [facility] Height 2022-03-19 00:00:00 66 [in_i] [facility] BMI (Body Mass Index) 2022-03-19 00:00:00 23.8 kg/m2 [facility] BP Systolic 2022-03-19 00:00:00 111 mm[Hg] [facility] Body Weight 2022-03-19 00:00:00 2360 [oz_av] [facility] BP Diastolic 2022-03-05 00:00:00 70 mm[Hg] [facility] Height 2022-03-05 00:00:00 66 [in_i] [facility] BMI (Body Mass Index) 2022-03-05 00:00:00 23.8 kg/m2 [facility] BP Systolic 2022-03-05 00:00:00 116 mm[Hg] [facility] Body Weight 2022-03-05 00:00:00 2360 [oz_av] [facility] BP Diastolic 2022-03-04 00:00:00 74 mm[Hg] [facility] Height 2022-03-04 00:00:00 66 [in_i] [facility] BMI (Body Mass Index) 2022-03-04 00:00:00 23.8 kg/m2 [facility] BP Systolic 2022-03-04 00:00:00 118 mm[Hg] [facility] Body Weight 2022-03-04 00:00:00 2360 [oz_av] [facility] BP Diastolic 2022-02-12 00:00:00 72 mm[Hg] [facility] Height 2022-02-12 00:00:00 66 [in_i] [facility] BMI (Body Mass Index) 2022-02-12 00:00:00 23.8 kg/m2 [facility] BP Systolic 2022-02-12 00:00:00 118 mm[Hg] [facility] Body Weight 2022-02-12 00:00:00 2360 [oz_av] [facility] BP Diastolic 2022-02-10 00:00:00 68 mm[Hg] [facility] Height 2022-02-10 00:00:00 66 [in_i] [facility] BMI (Body Mass Index) 2022-02-10 00:00:00 23.9 kg/m2 [facility] BP Systolic 2022-02-10 00:00:00 108 mm[Hg] [facility] Body Weight 2022-02-10 00:00:00 2368 [oz_av] [facility] BP Diastolic 2022-02-02 00:00:00 62 mm[Hg] [facility] BP Systolic 2022-02-02 00:00:00 125 mm[Hg] [facility] Body Weight 2022-02-02 00:00:00 2368 [oz_av] [facility] BP Diastolic 2022-01-29 00:00:00 74 mm[Hg] [facility] Height 2022-01-29 00:00:00 66 [in_i] [facility] BMI (Body Mass Index) 2022-01-29 00:00:00 23.9 kg/m2 [facility] BP Systolic 2022-01-29 00:00:00 128 mm[Hg] [facility] Body Weight 2022-01-29 00:00:00 2368 [oz_av] [facility] BP Diastolic 2022-01-19 00:00:00 75 mm[Hg] [facility] Height 2022-01-19 00:00:00 66 [in_i] [facility] BMI (Body Mass Index) 2022-01-19 00:00:00 22.8 kg/m2 [facility] BP Systolic 2022-01-19 00:00:00 100 mm[Hg] [facility] Body Weight 2022-01-19 00:00:00 2258 [oz_av] [facility] BP Diastolic 2022-01-07 00:00:00 76 mm[Hg] [facility] Height 2022-01-07 00:00:00 66 [in_i] [facility] BMI (Body Mass Index) 2022-01-07 00:00:00 22.8 kg/m2 [facility] BP Systolic 2022-01-07 00:00:00 116 mm[Hg] [facility] Body Weight 2022-01-07 00:00:00 2258 [oz_av] [facility] BP Diastolic 2021-12-31 00:00:00 72 mm[Hg] [facility] Height 2021-12-31 00:00:00 66 [in_i] [facility] BMI (Body Mass Index) 2021-12-31 00:00:00 22.8 kg/m2 [facility] BP Systolic 2021-12-31 00:00:00 120 mm[Hg] [facility] Body Weight 2021-12-31 00:00:00 2256 [oz_av] [facility] Weight 2019-08-13 07:00:00 81.28 KG Height 2019-08-10 17:00:00 187.96 CM Procedures Procedure Date / Time Performed Performing Clinician Source PHOSPHORUS 2022-11-25 11:54:00 Jadyn Joseph [facility] MAGNESIUM 2022-11-25 11:54:00 Jake suzy [facility] TROPONIN I 2022-11-25 11:54:00 Jake suzy [facility] COMP. METABOLIC PANEL (24057) 2022-11-25 11:54:00 Jake suzy [facility] CBC WITH DIFF 2022-11-25 11:54:00 Jadyn [facility] N-TERMINAL PRO-BNP 2022-11-25 11:54:00 Jadyn Joseph [facility] YOUNG AURIS SURVEILLANCE BY PCR (INFECTION CONTROL PURPOSES) 2022-11-24 19:26:00 Sukh Neal [facility] COVID-19 (MOLECULAR TESTING NUCLEIC ACID AMPLIFICATION) 2022-11-24 17:23:00 Jadyn Joseph [facility] TRANSTHORACIC ECHO (TTE) COMPLETE 2022-11-24 17:16:19 Candida Chau [facility] TROPONIN I 2022-11-24 14:25:00 Jake suzy [facility] THYROID STIMULATING HORMONE 2022-11-24 14:25:00 Jadyn Joseph [facility] LIPID PANEL (52780)(TOTAL CHOLESTEROL, TRIGLYCERIDES, HDL) 2022-11-24 14:25:00 Jadyn Joseph [facility] GLYCOSYLATED HEMOGLOBIN (A1C) 2022-11-24 14:25:00 Jadyn Joseph [facility] LACTIC ACID WHOLE BLOOD 2022-11-24 12:26:00 Kimi Joseph [facility] XR CHEST 1 VW 2022-11-24 07:44:39 Jadyn [facility] URINE DRUG (IMMUNOASSAY) - COMPREHENSIVE DRUG SCREEN 2022-11-24 06:01:00 Jake [facility] URINALYSIS 2022-11-24 06:01:00 Jadyn Joseph [facility] PNEUMOCOCCAL ANTIGEN 2022-11-24 06:01:00 Jasvir Joseph [facility] URINE CULTURE 2022-11-24 06:01:00 Jadyn [facility] UREA NITROGEN, URINE RANDOM 2022-11-24 06:01:00 Jake suzy [facility] SODIUM, URINE RANDOM 2022-11-24 06:01:00 Jasvir Joseph [facility] PROTEIN CREAT RATIO URINE RANDOM 2022-11-24 06:01:00 Jake [facility] RESPIRATORY PANEL BY PCR 2022-11-24 05:25:00 [facility] [facility] AC PANEL 21 + LACTIC ACID 2022-11-24 05:24:00 Jake suzy [facility] PHOSPHORUS 2022-11-24 05:19:00 Jadyn Joseph [facility] MAGNESIUM 2022-11-24 05:19:00 Candida Chau [facility] TROPONIN I 2022-11-24 05:19:00 Candida Chau [facility] BASIC METABOLIC PANEL (NA, K, CL, CO2, GLUCOSE, BUN, CREATININE, CA) 2022-11-24 05:19:00 Candida Chau [facility] N-TERMINAL PRO-BNP 2022-11-24 05:19:00 Candida Chau [facility] CBC WITH DIFF 2022-11-24 05:18:00 Candida Chau [facility] PROCALCITONIN 2022-11-24 05:16:00 Jadyn Joseph [facility] [id number] 2021-11-13 00:00:00 [facility] [id number] 2021-11-02 00:00:00 [facility] [id number] 2021-11-02 00:00:00 [facility] [id number] 2021-11-02 00:00:00 [facility] [id number] 2021-11-02 00:00:00 [facility] [id number] 2021-11-02 00:00:00 [facility] [id number] 2021-11-02 00:00:00 [facility] [id number] 2021-11-02 00:00:00 [facility] [id number] 2021-10-28 00:00:00 [facility] Encounters Start Date/Time End Date/Time Encounter Type Admission Type Attending [facility] Care Facility Care Department Encounter ID Source 2021-10-14 11:22:12 Outpatient Laura Arteaga [facility] [id number] [facility] 2021-10-14 11:21:51 Outpatient Laura Arteaga [facility] [id number] [facility] 2024-06-06 00:00:00 2024-06-06 00:00:00 WERNER Coughlin: [address] [place] [phone] , Ph. [facility] [id number] [facility] 2024-05-18 00:00:00 2024-05-18 00:00:00 WERNER Coughlin: [address] [place] [phone] , Ph. [facility] [id number] [facility] 2024-04-27 00:00:00 2024-04-27 00:00:00 WERNER Coughlin: [address] [place] [phone] , Ph. [facility] [id number] [facility] 2024-04-26 00:00:00 2024-04-26 00:00:00 Mathew Eason MD: [address] [place] [phone] , Ph. [facility] [id number] [facility] 2024-04-13 00:00:00 2024-04-13 00:00:00 WERNER Coughlin: [address] [place] [phone] , Ph. [facility] [id number] [facility] 2024-04-02 00:00:00 2024-04-02 00:00:00 WERNER Coughlin: [address] [place] [phone] , Ph. [facility] [id number] [facility] 2024-03-30 00:00:00 2024-03-30 00:00:00 WERNER Coughlin: [address] [place] [phone] , Ph. [facility] [id number] [facility] 2024-03-28 00:00:00 2024-03-28 00:00:00 Katia Pearson PA: [address] [place] [phone] , Ph. [facility] [id number] [facility] 2024-03-09 00:00:00 2024-03-09 00:00:00 Katia Pearson PA: [address] [place] [phone] , Ph. [facility] [id number] [facility] 2024-03-02 00:00:00 2024-03-02 00:00:00 Katia Pearson PA: [address] [place] [phone] , Ph. [facility] [id number] [facility] 2024-02-23 00:00:00 2024-02-23 00:00:00 Mathew Eason MD: [address] [place] [phone] , Ph. [facility] [id number] [facility] 2024-02-17 00:00:00 2024-02-17 00:00:00 Katia Pearson PA: [address] [place] [phone] , Ph. [facility] [id number] [facility] 2024-02-10 00:00:00 2024-02-10 00:00:00 Katia Pearson PA: [address] [place] [address] , Ph. [facility] [id number] [facility] 2024-01-27 00:00:00 2024-01-27 00:00:00 Katia Pearson PA: [address] [place] [phone] , Ph. [facility] [id number] [facility] 2024-01-09 00:00:00 2024-01-09 00:00:00 Katia Pearson PA: [address] [place] [phone] , Ph. [facility] [id number] [facility] 2024-01-06 00:00:00 2024-01-06 00:00:00 Katia Pearson PA: [address] [place] [phone] , Ph. [facility] [id number] [facility] 2024-01-03 00:00:00 2024-01-03 00:00:00 Katia Pearson PA: [address] [place] [phone] , Ph. [facility] [id number] [facility] 2023-12-26 00:00:00 2023-12-26 00:00:00 Outpatient GC[facility]_Tod d_[facility] [id number] [facility] 2023-12-23 00:00:00 2023-12-23 00:00:00 Katia Pearson PA: [address] [place] [phone] , Ph. GC_BA[facility]_Tod d_[facility] [id number] [facility] 2023-12-20 00:00:00 2023-12-20 00:00:00 Outpatient GC_BAHC_Tod d_J PRIV PRIV [id number] [facility] 2023-12-16 00:00:00 2023-12-16 00:00:00 WERNER Coughlin: [address] [place] [phone] , Ph. GC_[facility]_Tod d_[facility] [id number] [facility] 2023-12-15 00:00:00 2023-12-15 00:00:00 Mathew Eason MD: [address] [place] [phone] , Ph. GC_BA[facility]_Tod d_[facility] [id number] [facility] 2023-12-14 00:00:00 2023-12-14 00:00:00 Outpatient GC_BAHC_Tod d_J PRIV PRIV [id number] [facility] 2023-12-05 00:00:00 2023-12-05 00:00:00 Outpatient GC_BAHC_Tod d_J PRIV PRIV [id number] [facility] 2023-12-02 00:00:00 2023-12-02 00:00:00 Outpatient GC_BAHC_Tod d_J PRIV PRIV [id number] [facility] 2023-11-30 00:00:00 2023-11-30 00:00:00 Outpatient GC_BAHC_Tod d_J PRIV PRIV [id number] [facility] 2023-11-29 00:00:00 2023-11-29 00:00:00 WERNER Coughlin: [address] [place] [phone] , Ph. [facility] [id number] [facility] 2023-11-28 00:00:00 2023-11-28 00:00:00 Outpatient [facility]Tod d_[facility] [id number] [facility] 2023-11-18 00:00:00 2023-11-18 00:00:00 Katia Pearson PA: [address] [place] [phone] , Ph. GC_BAHC_Tod d_J [facility] [id number] [facility] 2023-11-18 00:00:00 2023-11-18 00:00:00 Katia Pearson PA: [address] [place] [phone] , Ph. [facility] [id number] [facility] 2023-11-16 00:00:00 2023-11-16 00:00:00 Outpatient GC_[facility]_Tod d_[facility] [id number] [facility] 2023-11-11 00:00:00 2023-11-11 00:00:00 Katia Pearson PA: [address] [place] [phone] , Ph. GC_BAHC_Tod d_J [facility] [id number] [facility] 2023-11-11 00:00:00 2023-11-11 00:00:00 WERNER Coughlin: [address] [place] [phone] , Ph. [facility] [id number] [facility] 2023-11-10 00:00:00 2023-11-10 00:00:00 Outpatient [facility]_Tod d_[facility] [id number] [facility] 2023-11-04 00:00:00 2023-11-04 00:00:00 WERNER Coughlin: [address] [place] [phone] , Ph. [facility] [id number] [facility] 2023-11-04 00:00:00 2023-11-04 00:00:00 WERNER Coughlin: [address] [place] [phone] , Ph. [facility] [id number] [facility] 2023-11-03 00:00:00 2023-11-03 00:00:00 Outpatient GC_BAHC_Tod d_J PRIV PRIV [id number] [facility] 2023-10-31 00:00:00 2023-10-31 00:00:00 Outpatient GC_BAHC_Tod d_J PRIV PRIV [id number] [facility] 2023-10-28 00:00:00 2023-10-28 00:00:00 WERNER Coughlin: [address] [place] [phone] , Ph. [facility] [id number] [facility] 2023-10-28 00:00:00 2023-10-28 00:00:00 WERNER Coughlin: [address] [place] [phone] , Ph. [facility] [id number] [facility] 2023-10-26 00:00:00 2023-10-26 00:00:00 Outpatient GC_BAHC_Tod d_J PRIV PRIV [id number] [facility] 2023-10-25 00:00:00 2023-10-25 00:00:00 WERNER Coughlin: [address] [place] [phone] , Ph. [facility] [id number] [facility] 2023-10-25 00:00:00 2023-10-25 00:00:00 WERNER Coughlin: [address] [place] [phone] , Ph. [facility] [id number] [facility] 2023-10-21 00:00:00 2023-10-21 00:00:00 Outpatient GC_BAHC_Tod d_J PRIV PRIV [id number] [facility] 2023-10-15 00:00:00 2023-10-15 00:00:00 Outpatient GC_BAHC_Tod d_J PRIV PRIV [id number] [facility] 2023-10-14 00:00:00 2023-10-14 00:00:00 Outpatient GC_BAHC_Tod d_J PRIV PRIV [id number] [facility] 2023-10-13 00:00:00 2023-10-13 00:00:00 Mathew Eason MD: [address] [place] [phone] , Ph. [facility] [id number] [facility] 2023-10-13 00:00:00 2023-10-13 00:00:00 Mathew Eason MD: [address] [place] [phone] , Ph. [facility] [id number] [facility] 2023-10-12 00:00:00 2023-10-12 00:00:00 Outpatient GC_BAHC_Tod d_J PRIV PRIV [id number] [facility] 2023-10-11 00:00:00 2023-10-11 00:00:00 WERNER Coughlin: [address] [place] [phone] , Ph. GC_BAHC_Tod d_J [facility] [id number] [facility] 2023-10-11 00:00:00 2023-10-11 00:00:00 WERNER Coughlin: [address] [place] [id number] , Ph. [facility] [id number] [facility] 2023-10-07 00:00:00 2023-10-07 00:00:00 Outpatient GC_BAHC_Tod d_J PRIV PRIV [id number] [facility] 2023-10-05 00:00:00 2023-10-05 00:00:00 Outpatient GC_BAHC_Tod d_J PRIV PRIV [id number] [facility] 2023-10-04 00:00:00 2023-10-04 00:00:00 Outpatient GC_BAHC_Tod d_J PRIV PRIV [id number] [facility] 2023-10-04 00:00:00 2023-10-04 00:00:00 WERNER Coughlin: [address] [place] [phone] , Ph. [facility] [id number] [facility] 2023-09-26 00:00:00 2023-09-26 00:00:00 Outpatient GC_BAHC_Tod d_J PRIV PRIV [id number] [facility] 2023-09-21 00:00:00 2023-09-21 00:00:00 Outpatient GC_BAHC_Tod d_J PRIV PRIV [id number] [facility] 2023-09-20 00:00:2023-09-20 00:00:00 Outpatient GC_BAHC_Tod d_J PRIV PRIV [id number] [facility] 2023-09-10 00:00:00 2023-09-10 00:00:00 Outpatient GC_BAHC_Tod d_J PRIV PRIV [id number] [facility] 2023-09-08 00:00:00 2023-09-08 00:00:00 Outpatient GC_BAHC_Tod d_J PRIV PRIV [id number] [facility] 2023-09-06 00:00:00 2023-09-06 00:00:00 Outpatient GC_BAHC_Tod d_J PRIV PRIV [id number] [facility] 2023-08-29 00:00:00 2023-08-29 00:00:00 Outpatient GC_BAHC_Tod d_J PRIV PRIV [id number] [facility] 2023-08-24 00:00:00 2023-08-24 00:00:00 Outpatient GC_BAHC_Tod d_J PRIV PRIV [id number] [facility] 2023-08-21 00:00:00 2023-08-21 00:00:00 Outpatient GC_BAHC_Tod d_J PRIV PRIV [id number] [facility] 2023-08-18 00:00:00 2023-08-18 00:00:00 Outpatient GC_BAHC_Tod d_J PRIV PRIV [id number] [facility] 2023-08-17 00:00:00 2023-08-17 00:00:00 Outpatient GC_BAHC_Tod d_J PRIV PRIV [id number] [facility] 2023-08-16 00:00:00 2023-08-16 00:00:00 Outpatient GC_BAHC_Tod d_J PRIV PRIV [id number] [facility] 2023-08-08 00:00:00 2023-08-08 00:00:00 Outpatient GC_BAHC_Tod d_J PRIV PRIV [id number] [facility] 2023-08-04 00:00:00 2023-08-04 00:00:00 Outpatient GC_BAHC_Tod d_J PRIV PRIV [id number] [facility] 2023-08-02 00:00:00 2023-08-02 00:00:00 Outpatient GC_BAHC_Tod d_J PRIV PRIV [id number] [facility] 2023-07-28 00:00:00 2023-07-28 00:00:00 Outpatient GC_BAHC_Tod d_J PRIV PRIV [id number] [facility] 2023-07-22 00:00:00 2023-07-22 00:00:00 Outpatient GC_BAHC_Tod d_J PRIV PRIV [id number] [facility] 2023-07-21 00:00:00 2023-07-21 00:00:00 Outpatient GC_BAHC_Tod d_J PRIV PRIV [id number] [facility] 2023-07-17 00:00:00 2023-07-17 00:00:00 Outpatient GC_BAHC_Tod d_J PRIV PRIV [id number] [facility] 2023-07-15 00:00:00 2023-07-15 00:00:00 Outpatient GC_BAHC_Tod d_J PRIV PRIV [id number] [facility] 2023-07-15 00:00:00 2023-07-15 00:00:00 Outpatient GC_BAHC_Tod d_J PRIV PRIV [id number] [facility] 2023-07-07 00:00:00 2023-07-07 00:00:00 Outpatient GC_BAHC_Tod d_J PRIV PRIV [id number] [facility] 2023-07-01 00:00:00 2023-07-01 00:00:00 Outpatient GC_BAHC_Tod d_J PRIV PRIV [id number] [facility] 2023-07-01 00:00:00 2023-07-01 00:00:00 Outpatient GC_BAHC_Tod d_J PRIV PRIV [id number] [facility] 2023-06-27 00:00:00 2023-06-27 00:00:00 Outpatient GC_BAHC_Tod d_J PRIV PRIV [id number] [facility] 2023-06-27 00:00:00 2023-06-27 00:00:00 Outpatient GC_BAHC_Tod d_J PRIV PRIV [id number] [facility] 2023-06-13 00:00:00 2023-06-13 00:00:00 Outpatient GC_BAHC_Tod d_J PRIV PRIV [id number] [facility] 2023-06-10 00:00:00 2023-06-10 00:00:00 Outpatient GC_BAHC_Tod d_J PRIV PRIV [id number] [facility] 2023-06-10 00:00:00 2023-06-10 00:00:00 Outpatient GC_BAHC_Tod d_J PRIV PRIV [id number] [facility] 2023-06-02 00:00:00 2023-06-02 00:00:00 Outpatient GC_BAHC_Tod d_J PRIV PRIV [id number] [facility] 2023-05-18 00:00:00 2023-05-18 00:00:00 Outpatient GC_BAHC_Tod d_J PRIV PRIV [id number] [facility] 2023-05-16 00:00:00 2023-05-16 00:00:00 Outpatient GC_BAHC_Tod d_J PRIV PRIV [id number] [facility] 2023-05-13 00:00:00 2023-05-13 00:00:00 Outpatient GC_BAHC_Tod d_J PRIV PRIV [id number] [facility] 2023-05-05 00:00:00 2023-05-05 00:00:00 Outpatient GC_BAHC_Tod d_J PRIV PRIV [id number] [facility] 2023-05-01 00:00:00 2023-05-01 00:00:00 Outpatient GC_BAHC_Tod d_J PRIV PRIV [id number] [facility] 2023-04-27 00:00:00 2023-04-27 00:00:00 Outpatient GC_BAHC_Tod d_J PRIV PRIV [id number] [facility] 2023-04-22 00:00:00 2023-04-22 00:00:00 Outpatient GC_BAHC_Tod d_J PRIV PRIV [id number] [facility] 2023-04-22 00:00:00 2023-04-22 00:00:00 Outpatient GC_BAHC_Tod d_J PRIV PRIV [id number] [facility] 2023-04-14 00:00:00 2023-04-14 00:00:00 Outpatient GC_BAHC_Tod d_J PRIV PRIV [id number] [facility] 2023-04-08 00:00:00 2023-04-08 00:00:00 Outpatient GC_BAHC_Tod d_J PRIV PRIV [id number] [facility] 2023-04-04 00:00:00 2023-04-04 00:00:00 Outpatient GC_BAHC_Tod d_J PRIV PRIV [id number] [facility] 2023-03-30 00:00:00 2023-03-30 00:00:00 Outpatient GC_BAHC_Tod d_J PRIV PRIV [id number] [facility] 2023-03-29 00:00:00 2023-03-29 00:00:00 Outpatient GC_BAHC_Tod d_J PRIV PRIV [id number] [facility] 2023-03-25 00:00:00 2023-03-25 00:00:00 Outpatient GC_BAHC_Tod d_J PRIV PRIV [id number] [facility] 2023-03-16 00:00:00 2023-03-16 00:00:00 Outpatient GC_BAHC_Tod d_J PRIV PRIV [id number] [facility] 2023-03-02 00:00:00 2023-03-02 00:00:00 Outpatient GC_BAHC_Tod d_J PRIV PRIV [id number] [facility] 2023-03-01 00:00:00 2023-03-01 00:00:00 Outpatient GC_BAHC_Tod d_J PRIV PRIV [id number] [facility] 2023-02-24 00:00:00 2023-02-24 00:00:00 Outpatient GC_BAHC_Tod d_J PRIV PRIV [id number] [facility] 2023-02-23 00:00:00 2023-02-23 00:00:00 Outpatient GC_BAHC_Tod d_J PRIV PRIV [id number] [facility] 2023-02-18 00:00:00 2023-02-18 00:00:00 Outpatient GC_BAHC_Tod d_J PRIV PRIV [id number] [facility] 2023-02-18 00:00:00 2023-02-18 00:00:00 Outpatient GC_BAHC_Tod d_J PRIV PRIV [id number] [facility] 2023-02-10 00:00:00 2023-02-10 00:00:00 Outpatient GC_BAHC_Tod d_J PRIV PRIV [id number] [facility] 2023-02-10 00:00:00 2023-02-10 00:00:00 Outpatient GC_BAHC_Tod d_J PRIV PRIV [id number] [facility] 2023-02-08 00:00:00 2023-02-08 00:00:00 Outpatient GC_BAHC_Tod d_J PRIV PRIV [id number] [facility] 2023-02-03 00:00:00 2023-02-03 00:00:00 Outpatient GC_BAHC_Tod d_J PRIV PRIV [id number] [facility] 2023-01-27 00:00:00 2023-01-27 00:00:00 Outpatient GC_BAHC_Tod d_J PRIV PRIV [id number] [facility] 2023-01-26 00:00:00 2023-01-26 00:00:00 Outpatient GC_BAHC_Tod d_J PRIV PRIV [id number] [facility] 2023-01-26 00:00:00 2023-01-26 00:00:00 WERNER Coughlin: [address] [place] [phone] , Ph. [facility] [id number] [facility] 2023-01-24 00:00:00 2023-01-24 00:00:00 Outpatient GC_BAHC_Tod d_J PRIV PRIV [id number] [facility] 2023-01-20 00:00:00 2023-01-20 00:00:00 Outpatient GC_BAHC_Tod d_J PRIV PRIV [id number] [facility] 2023-01-17 00:00:00 2023-01-17 00:00:00 Outpatient GC_BAHC_Tod d_J PRIV PRIV [id number] [facility] 2023-01-17 00:00:00 2023-01-17 00:00:00 Outpatient GC_BAHC_Tod d_J PRIV PRIV [id number] [facility] 2022-12-24 00:00:00 2022-12-24 00:00:00 Outpatient GC_BAHC_Tod d_J PRIV PRIV [id number] [facility] 2022-12-22 00:00:00 2022-12-22 00:00:00 WERNER Coughlin: [address] [place] [phone] , Ph. [facility] [id number] [facility] 2022-12-21 00:00:00 2022-12-21 00:00:00 Outpatient GC_BAHC_Tod d_J PRIV PRIV [id number] [facility] 2022-12-17 00:00:00 2022-12-17 00:00:00 WERNER Coughlin: [address] [place] [phone] , Ph. [facility] - [facility] [id number] [facility] 2022-12-15 00:00:00 2022-12-15 00:00:00 Katia Pearson PA: [address] [place] [phone] , Ph. [facility] - [facility] [id number] [facility] 2022-12-10 00:00:00 2022-12-10 00:00:00 Katia Pearson PA: [address] [place] [phone] , Ph. [facility] [id number] [facility] 2022-12-07 00:00:00 2022-12-07 00:00:00 Katia Pearson PA: [address] [place] [phone] , Ph. [facility] - GC_[facility]HC_[facility] [id number] [facility] 2022-12-06 00:00:00 2022-12-06 00:00:00 Outpatient GC_BAHC_Tod d_J PRIV PRIV [id number] [facility] 2022-12-06 00:00:00 2022-12-06 00:00:00 Outpatient GC_BAHC_Tod d_J PRIV PRIV [id number] [facility] 2022-12-06 00:00:00 2022-12-06 00:00:00 Outpatient GC_BAHC_Tod d_J PRIV PRIV [id number] [facility] 2022-12-06 00:00:00 2022-12-06 00:00:00 Outpatient GC_BAHC_Tod d_J PRIV PRIV [id number] [facility] 2022-12-06 00:00:00 2022-12-06 00:00:00 Outpatient GC_BAHC_Tod d_J PRIV PRIV [id number] [facility] 2022-11-26 00:00:00 2022-11-26 00:00:00 Transition of Care Elisha Lynch L[place]anny HERMINIA TAN 1..840.114 350.1.13.10 4.2.7.2.686 [id number] [facility] 2022-11-26 00:00:00 2022-11-26 00:00:00 WERNER Coughlin: [address] [place] [phone] , Ph. [facility] GC_BAHC_L[facility] [id number] [facility] 2022-11-26 00:00:00 2022-11-26 00:00:00 Telephone Maciel Valenzuela [facility] 1..840.114 350.1.13.10 4.2.7.2.686 [id number] [facility] 2022-11-23 19:04:00 2022-11-25 16:05:00 Inpatient Мария SUKH [facility] LY [id number] [facility] 2022-11-23 19:04:00 2022-11-25 16:05:00 Hospital Encounter IsacCandida Yaman [facility] 1..840.114 350.1.13.10 4.2.7.2.686 [id number] [facility] 2022-11-24 00:00:00 2022-11-24 00:00:00 Outpatient GC_BAHC_Tod d_J [facility] [id number] [facility] 2022-11-24 00:00:00 2022-11-24 00:00:00 Outpatient GC_BAHC_Tod d_J [facility] [id number] [facility] 2022-11-23 00:00:00 2022-11-23 00:00:00 Outpatient GC_BAHC_Tod d_J [facility] [id number] [facility] 2022-11-23 00:00:00 2022-11-23 00:00:00 WERNER Coughlin: [address] [place] [phone] , Ph. [facility] GC_BAHC_Lak [facility] [id number] [facility] 2022-11-12 00:00:00 2022-11-12 00:00:00 Outpatient GC_BAHC_Tod d_J PRIV PRIV [id number] [facility] 2022-11-11 00:00:00 2022-11-11 00:00:00 Outpatient GC_BAHC_Tod d_J PRIV PRIV [id number] [facility] 2022-11-02 00:00:00 2022-11-02 00:00:00 Mathew Eason MD: [address] [place] [phone] , Ph. [facility] [id number] [facility] 2022-10-20 00:00:00 2022-10-20 00:00:00 Outpatient GC_BAHC_Tod d_J PRIV PRIV [id number] [facility] 2022-10-20 00:00:00 2022-10-20 00:00:00 Outpatient GC_BAHC_Tod d_J PRIV PRIV [id number] [facility] 2022-10-19 00:00:00 2022-10-19 00:00:00 WERNER Coughlin: [address] [place] [phone] , Ph. [facility] [id number] [facility] 2022-10-15 00:00:00 2022-10-15 00:00:00 Outpatient GC_BAHC_Tod d_J PRIV PRIV [id number] [facility] 2022-10-15 00:00:00 2022-10-15 00:00:00 Outpatient GC_BAHC_Tod d_J PRIV PRIV [id number] [facility] 2022-10-13 00:00:00 2022-10-13 00:00:00 Outpatient GC_BAHC_Tod d_J PRIV PRIV [id number] [facility] 2022-09-29 00:00:00 2022-09-29 00:00:00 Outpatient GC_BAHC_Tod d_J PRIV PRIV [id number] [facility] 2022-09-29 00:00:00 2022-09-29 00:00:00 Outpatient GC_BAHC_Tod d_J PRIV PRIV [id number] [facility] 2022-09-29 00:00:00 2022-09-29 00:00:00 WERNER Coughlin: [address] [place] [phone] , Ph. [facility] - [facility] [id number] [facility] 2022-09-21 00:00:00 2022-09-21 00:00:00 Outpatient GC_BAHC_Tod d_J PRIV PRIV [id number] [facility] 2022-09-21 00:00:00 2022-09-21 00:00:00 Outpatient GC_BAHC_Tod d_J PRIV PRIV [id number] [facility] 2022-09-21 00:00:00 2022-09-21 00:00:00 WERNER Coughlin: [address] [place] [phone] , Ph. [facility] [id number] [facility] 2022-09-16 00:00:00 2022-09-16 00:00:00 Outpatient GC_BAHC_Tod d_J PRIV PRIV [id number] [facility] 2022-09-14 00:00:00 2022-09-14 00:00:00 Outpatient GC_BAHC_Tod d_J PRIV PRIV [id number] [facility] 2022-09-10 00:00:00 2022-09-10 00:00:00 WERNER Coughlin: [address] [place] [phone] , Ph. [facility] [id number] [facility] 2022-09-03 00:00:00 2022-09-03 00:00:00 Outpatient GC_BAHC_Tod d_J PRIV PRIV [id number] [facility] 2022-08-27 00:00:00 2022-08-27 00:00:00 Outpatient GC_BAHC_Tod d_J PRIV PRIV [id number] [facility] 2022-08-24 00:00:00 2022-08-24 00:00:00 WERNER Coughlin: [address] [place] [phone] , Ph. [facility] [id number] [facility] 2022-08-18 00:00:00 2022-08-18 00:00:00 Outpatient GC_BAHC_Tod d_J PRIV PRIV [id number] [facility] 2022-08-18 00:00:00 2022-08-18 00:00:00 Outpatient GC_BAHC_Tod d_J PRIV PRIV [id number] [facility] 2022-08-04 00:00:00 2022-08-04 00:00:00 Outpatient GC_BAHC_Tod d_J PRIV PRIV [id number] [facility] 2022-07-27 00:00:00 2022-07-27 00:00:00 Outpatient GC_BAHC_Tod d_J PRIV PRIV [id number] [facility] 2022-07-26 00:00:00 2022-07-26 00:00:00 Outpatient GC_BAHC_Tod d_J PRIV PRIV [id number] [facility] 2022-07-23 00:00:00 2022-07-23 00:00:00 Outpatient GC_BAHC_Tod d_J PRIV PRIV [id number] [facility] 2022-07-20 00:00:00 2022-07-20 00:00:00 WERNER Coughlin: [address] [place] [phone] , Ph. [facility] [id number] [facility] 2022-07-15 00:00:00 2022-07-15 00:00:00 Outpatient GC_BAHC_Tod d_J PRIV PRIV [id number] [facility] 2022-07-09 00:00:00 2022-07-09 00:00:00 Outpatient GC_BAHC_Tod d_J PRIV PRIV [id number] [facility] 2022-07-09 00:00:00 2022-07-09 00:00:00 WERNER Coughlin: [address] [place] [phone] , Ph. [facility] [id number] [facility] 2022-07-06 00:00:00 2022-07-06 00:00:00 Outpatient GC_BAHC_Tod d_J PRIV PRIV [id number] [facility] 2022-07-06 00:00:00 2022-07-06 00:00:00 Mathew Eason MD: [address] [place] [phone] , Ph. [facility] [id number] [facility] 2022-06-29 00:00:00 2022-06-29 00:00:00 Outpatient GC_BAHC_Tod d_J PRIV PRIV [id number] [facility] 2022-06-02 00:00:00 2022-06-02 00:00:00 Outpatient GC_BAHC_Tod d_J PRIV PRIV [id number] [facility] 2022-06-01 00:00:00 2022-06-01 00:00:00 Outpatient Katia Pearson [facility] PRIV [id number] 2022-06-01 00:00:00 2022-06-01 00:00:00 WERNER Coughlin: [address] [place] [phone] , Ph. [facility] - [facility] [id number] [facility] 2022-05-31 00:00:00 2022-05-31 00:00:00 Outpatient GC_BAHC_Tod d_J PRIV PRIV [id number] [facility] 2022-05-28 00:00:00 2022-05-28 00:00:00 Outpatient GC_BAHC_Tod d_J PRIV PRIV [id number] [facility] 2022-05-25 00:00:00 2022-05-25 00:00:00 Outpatient GC_BAHC_Tod d_J PRIV PRIV [id number] [facility] 2022-05-20 00:00:00 2022-05-20 00:00:00 Outpatient GC_BAHC_Tod d_J PRIV PRIV [id number] [facility] 2022-05-10 00:00:00 2022-05-10 00:00:00 Outpatient GC_BAHC_Tod d_J PRIV PRIV [id number] [facility] 2022-05-07 00:00:00 2022-05-07 00:00:00 Outpatient GC_BAHC_Tod d_J PRIV PRIV [id number] [facility] 2022-05-07 00:00:00 2022-05-07 00:00:00 Outpatient Katia Pearson [facility] PRIV [id number] 2022-05-07 00:00:00 2022-05-07 00:00:00 WERNER Coughlin: [address] [place] [phone] , Ph. [facility] [id number] [facility] 2022-05-05 00:00:00 2022-05-05 00:00:00 Outpatient GC_BAHC_Tod d_J PRIV PRIV [id number] [facility] 2022 00:00:00 2022 00:00:00 Outpatient GC_BAHC_Tod d_J PRIV PRIV [id number] [facility] 2022 00:00:00 2022 00:00:00 Outpatient Mathew Eason [facility] [id number] 2022 00:00:00 2022 00:00:00 Mathew Eason MD: [address] [place] [phone] , Ph. [facility] [id number] [facility] 2022-04-12 11:50:00 2022-04-12 11:50:00 Outpatient GC_BAHC_Tod d_J PRIV PRIV [id number] [facility] 2022-04-06 10:04:00 2022-04-06 10:04:00 Outpatient GC_BAHC_Tod d_J PRIV PRIV [id number] [facility] 2022-04-06 10:04:00 2022-04-06 10:04:00 Outpatient GC_BAHC_Tod d_J PRIV PRIV [id number] [facility] 2022-04-06 00:00:00 2022-04-06 00:00:00 WERNER Coughlin: [address] [place] [phone] , Ph. [facility] [id number] [facility] 2022-04-06 00:00:00 2022-04-06 00:00:00 Outpatient Katia Pearson PRIV PRIV [id number] 2022-03-29 02:04:00 2022-03-29 02:04:00 Outpatient GC_BAHC_Tod d_J PRIV PRIV [id number] [facility] 2022-03-28 10:59:00 2022-03-28 10:59:00 Outpatient GC_BAHC_Tod d_J PRIV PRIV [id number] [facility] 2022-03-26 12:02:00 2022-03-26 12:02:00 Outpatient GC_BAHC_Tod d_J PRIV PRIV [id number] [facility] 2022-03-25 10:06:00 2022-03-25 10:06:00 Outpatient GC_BAHC_Tod d_J PRIV PRIV [id number] [facility] 2022-03-19 04:13:00 2022-03-19 04:13:00 Outpatient GC_BAHC_Tod d_J PRIV PRIV [id number] [facility] 2022-03-19 00:00:00 2022-03-19 00:00:00 Katia Pearson PA: [address] [place] [phone] , Ph. [facility] [id number] [facility] 2022-03-19 00:00:00 2022-03-19 00:00:00 Outpatient Katia Pearson [facility] PRIV [id number] 2022-03-17 09:14:00 2022-03-17 09:14:00 Outpatient GC_BAHC_Tod d_J PRIV PRIV [id number] [facility] 2022-03-14 10:45:00 2022-03-14 10:45:00 Outpatient GC_BAHC_Tod d_J PRIV PRIV [id number] [facility] 2022-03-12 04:53:00 2022-03-12 04:53:00 Outpatient GC_BAHC_Tod d_J PRIV PRIV [id number] [facility] 2022-03-05 09:05:00 2022-03-05 09:05:00 Outpatient GC_BAHC_Tod d_J PRIV PRIV [id number] [facility] 2022-03-05 09:05:00 2022-03-05 09:05:00 Outpatient GC_BAHC_Tod d_J PRIV PRIV [id number] [facility] 2022-03-05 00:00:00 2022-03-05 00:00:00 WERNER Coughlin: [address] [place] [id number] , Ph. [facility] [id number] [facility] 2022-03-05 00:00:00 2022-03-05 00:00:00 Outpatient Katia Pearson [facility] [id number] 2022-03-04 10:54:00 2022-03-04 10:54:00 Outpatient GC_BAHC_Tod d_J PRIV PRIV [id number] [facility] 2022-03-04 00:00:00 2022-03-04 00:00:00 Outpatient Mathew Eason [facility] [id number] 2022-03-04 00:00:00 2022-03-04 00:00:00 Mathew Eason MD: [address] [place] [phone] , Ph. [facility] [id number] [facility] 2022-02-21 10:40:00 2022-02-21 10:40:00 Outpatient GC_BAHC_Tod d_J PRIV PRIV [id number] [facility] 2022-02-18 02:07:00 2022-02-18 02:07:00 Outpatient GC_BAHC_Tod d_J PRIV PRIV [id number] [facility] 2022-02-15 02:03:00 2022-02-15 02:03:00 Outpatient GC_BAHC_Tod d_J PRIV PRIV [id number] [facility] 2022-02-12 08:00:00 2022-02-12 08:00:00 Outpatient GC_BAHC_Tod d_J PRIV PRIV [id number] [facility] 2022-02-12 00:00:00 2022-02-12 00:00:00 Outpatient MichelKatia [facility] PRIV [id number] 2022-02-12 00:00:00 2022-02-12 00:00:00 WERNER Coughlin: [address] [place] [id number] , Ph. [facility] [id number] [facility] 2022-02-11 11:07:00 2022-02-11 11:07:00 Outpatient GC_BAHC_Tod d_J PRIV PRIV [id number] [facility] 2022-02-10 05:20:00 2022-02-10 05:20:00 Outpatient GC_BAHC_Tod d_J PRIV PRIV [id number] [facility] 2022-02-10 00:00:00 2022-02-10 00:00:00 Outpatient Katia Pearson [facility] PRIV [id number] 2022-02-10 00:00:00 2022-02-10 00:00:00 WERNER Coughlin: [address] [place] [phone] , Ph. [facility] [id number] [facility] 2022-02-07 10:45:00 2022-02-07 10:45:00 Outpatient GC_BAHC_Tod d_J PRIV PRIV [id number] [facility] 2022-02-05 09:30:00 2022-02-05 09:30:00 Outpatient GC_BAHC_Tod d_J PRIV PRIV [id number] [facility] 2022-02-05 00:00:00 2022-02-05 00:00:00 Katia Pearson PA: [address] [place] [phone] , Ph. [facility] [id number] [facility] 2022-02-02 05:07:00 2022-02-02 05:07:00 Outpatient GC_BAHC_Tod d_J PRIV PRIV [id number] [facility] 2022-02-02 00:00:00 2022-02-02 00:00:00 Outpatient MichelKatia [facility] PRIV [id number] 2022-02-02 00:00:00 2022-02-02 00:00:00 WERNER Coughlin: [address] [place] [id number] , Ph. [facility] [id number] [facility] 2022-01-29 01:17:00 2022-01-29 01:17:00 Outpatient GC_BAHC_Tod d_J PRIV PRIV [id number] [facility] 2022-01-29 00:00:00 2022-01-29 00:00:00 Outpatient Katia Pearson [facility] PRIV [id number] 2022-01-29 00:00:00 2022-01-29 00:00:00 WRENER Coughlin: [address] [place] [id number] , Ph. [facility] [id number] [facility] 2022-01-27 10:53:00 2022-01-27 10:53:00 Outpatient GC_BAHC_Tod d_J PRIV PRIV [id number] [facility] 2022-01-19 07:50:00 2022-01-19 07:50:00 Outpatient GC_BAHC_Tod d_J PRIV PRIV [id number] [facility] 2022-01-19 00:00:00 2022-01-19 00:00:00 Outpatient Katia Pearson [facility] [id number] 2022-01-19 00:00:00 2022-01-19 00:00:00 WERNER Coughlin: [address] [place] [id number] , Ph. [facility] [id number] [facility] 2022-01-16 09:17:00 2022-01-16 09:17:00 Outpatient GC_BAHC_Tod d_J PRIV PRIV [id number] [facility] 2022-01-10 08:11:00 2022-01-10 08:11:00 Outpatient GC_BAHC_Tod d_J PRIV PRIV [id number] [facility] 2022-01-07 08:29:00 2022-01-07 08:29:00 Outpatient GC_BAHC_Tod d_J PRIV PRIV [id number] [facility] 2022-01-07 00:00:00 2022-01-07 00:00:00 Outpatient Mathew Eason [facility] PRIV [id number] 2022-01-07 00:00:00 2022-01-07 00:00:00 Mathew Eason MD: [address] [place] [id number] , Ph. [facility] [id number] [facility] 2022-01-07 00:00:00 2022-01-07 00:00:00 Outpatient Mathew Eason [facility] PRIV [id number] 2022-01-05 01:05:00 2022-01-05 01:05:00 Outpatient GC_BAHC_Tod d_J PRIV PRIV [id number] [facility] 2022-01-01 02:12:00 2022-01-01 02:12:00 Outpatient GC_BAHC_Tod d_J PRIV PRIV [id number] [facility] 2021-12-31 05:55:00 2021-12-31 05:55:00 Outpatient GC_BAHC_Tod d_J PRIV PRIV [id number] [facility] 2021-12-31 00:00:00 2021-12-31 00:00:00 Outpatient Kaila June [facility] PRIV [id number] 2021-12-31 00:00:00 2021-12-31 00:00:00 Kaila June, [employer] ATTENDANT: [address] [place] [address] , Ph. [facility] [id number] [facility] 2021-12-31 00:00:00 2021-12-31 00:00:00 Outpatient Kaila June [facility] PRIV [id number] 2021-12-28 05:07:00 2021-12-28 05:07:00 Outpatient GC_BAHC_[place]pa [facility]_G PRIV PRIV [id number] [facility] 2021-10-28 00:33:00 2021-11-17 16:31:00 Emergency EM Roselia Burton HCACL MEDI.01 [id number] [facility] 2019-12-05 09:37:00 2019-12-05 09:37:[address] [facility] [id number] [facility] 2019-08-20 11:20:00 2019-08-20 11:20:[address] [facility] [id number] [facility] 2019-08-10 20:44:00 2019-08-18 15:00:00 Inpatient AMBROSIO GONZALEZ [facility] [id number] [facility] 2019-08-09 16:31:00 2019-08-09 16:31:[address] [facility] [id number] [facility] 2019-08-07 14:43:00 2019-08-07 14:43:[address] [facility] [id number] [facility] 2019-05-16 10:20:00 2019-05-16 10:20:[address] [facility] [id number] [facility] 2019-02-27 13:20:00 2019-02-27 13:20:[address] [facility] [id number] [facility] 2019-01-01 09:54:00 2019-01-01 09:54:[address] [facility] [id number] [facility] 2019-01-01 09:00:00 2019-01-01 09:00:[address] [facility] [id number] [facility] 2018-11-30 10:45:00 2018-11-30 10:45:[address] [facility] [id number] [facility] 2018-11-24 15:45:00 2018-11-24 15:45:[address] [facility] [id number] [facility] 2018-10-25 09:00:00 2018-10-25 09:00:[address] [facility] [id number] [facility] 2018-08-30 09:45:00 2018-08-30 09:45:[address] [facility] [id number] [facility] 2018-08-29 09:54:00 2018-08-29 09:54:[address] [facility] [id number] [facility] 2018-06-30 09:30:00 2018-06-30 09:30:[address] [facility] [id number] [facility] 2018-05-31 15:00:00 2018-05-31 15:00:[address] [facility] [id number] [facility] 2018-05-03 09:30:00 2018-05-03 09:30:[address] [facility] [id number] [facility] 2018-03-30 16:33:00 2018-03-30 16:33:[address] [facility] [id number] [facility] 2018-03-23 08:36:00 2018-03-23 08:36:[address] [facility] [id number] [facility] 2018-03-21 08:45:00 2018-03-21 08:45:[address] [facility] [id number] [facility] 2018-02-20 08:45:00 2018-02-20 08:45:[address] [facility] [id number] [facility] 2018-01-20 09:00:00 2018-01-20 09:00:00 Outpatient [facility] [id number] [facility] Results Test Description Test Time Test Comments Results Result Co mments Source Rica [id number] 15:15:00* Test Item Value Reference Range Interpretation Comme nts SURGICAL (test code = SR) -----RUN DATE: 11/17/21 [employer] - LAB PAGE 1 RUN TIME: 1515 Specimen Inquiry RUN USER: INTERFACE -----PATIENT: VIKA CHEN LOC: [place] U #: [id number] AGE/SX: 56/M ROOM: [facility] RE10/28/21[facility] DR: Roselia Burton MD : 61 BED: 1 DIS: STATUS: ADM IN TLOC: ----- SPEC #: [id number] RECD: 11/16/21-1028 STATUS: RICARDO HUERTAS #: [id number] ABNER: 11/13/21- SUBM DR: Matt Mcbride MD ENTERED: 11/16/21-1030 SP TYPE: SURGICAL OTHR DR: Self Referred Dillon Mcbride MD, Husam Ismail MD Loya, Altaf N MD Mbogua, Caroline N MD Reyhani, Sean A DPMORDERED: BONE DECAL, GM LEVEL 5, ANATOMIC SPEC CODES: [id number] - LEG, NOS COPIES TO: Self Referred Matt Mcbride MD [address] [place] [address] Dillon Mcbride MD [address] [facility] [address] [place] [address] Rafael Isidro MD [address] [facility] [address] [place] [address] [place] [address] [facility] [address] [place] [address] [email or web address] [email or web address] Lira MD [address] [place] [address] Donald Dodson DPM [address] [facility]. [address] [place] [address] [email or web address] CONTINUED ON NEXT PAGE -----RUN DATE: 11/17/21 [facility] PAGE 2 RUN TIME: 1515 Specimen Inquiry RUN USER: INTERFACE -----SPEC #: [id number] PATIENT: VIKA CHEN #[id number] (Continued) PROCEDURES: BONE DECAL (11/16/21-1550) GM LEVEL 5 (11/16/21-1030) TISSUES: LEG, NOS - LEFT AKA CLINICAL HISTORY SAME FINAL DIAGNOSIS Left foot and leg, xawqd-plf-ixfh amputation: Gangrenous extremity with ulcer andosteomyelitis; calcified [...] cm ulcer isnot present at the heel. Chief Operator Synthesis sections are submitted: (A) femur marrow margin;(B) skin and soft tissue resection margin; (C) popliteal artery margin; (D) heel ulcer withbone after decal. Technical component performed at [address], [place] [address] Unless gross only, the diagnosis is based upon microscopic examination.Immunohistochemis try: This test was developed and its performance characteristicsdetermined by this laboratory. It has not been approved nor does it need approvalby the [place] FDA. Appropriate positive and negative controls are reviewed and judgedto be acceptable. This laboratory is certified under the Clinical Laboratory ImprovementAmendments (CLIA-88) as qualified to perform high complexity clinical laboratory testing. CLINICAL INFORMATION LEFT FOOT GANGRENE Signed SIGNATURE ON FILE Siena Still 11/17/21 1515 ----- END OF REPORT COVID 19 INHOUSE [id number] 13:30:00* Test Item Value Reference Range Interpretation Comme nts COVID 19 INHOUSE AG (test code = [id number]) Negative Negative A negative resul t is presumptive and should be confirmedwith an FDA authorized molecular assay, if necessary forpatient management.A positive result does not rule out co-infections withother pathogens.This test detects both viable (live) and non-viable,SARS-CoV, and SARS-CoV-2. Test performance depends on theamount of virus (antigen) in the sample.This test has not been FDA cleared or approved; the test hasbeen authorized by FDA under an Emergency Use Authorization(EUA) for use by laboratories certified under the CLIA thatmeet the requirements to perform moderate, high or waivedcomplexity tests. BASIC METABOLIC [id number] 07:46:00* Test Item Value Reference Range Interpretation Comme nts SODIUM (test code = NA) 145 mEq/L 134-147 N POTASSIUM (test code = K) 3.8 mEq/L 3.4-5.0 N CHLORIDE (test code = CL) 107 mEq/L 100-108 N CARBON DIOXIDE (test code = CO2) 29 mEq/l 21-33 N ANION GAP (test code = GAP) 13 0-20 N GLUCOSE (test code = GLU) 90 mg/dL 70-110 N BLOOD UREA NITROGEN (test code = BUN) 9 mg/dL 7-18 GLOMERULAR FILTRATION RATE (test code = GFR) 138.4 90-95 H Units of measure = ml/min/1.73 m2 CREATININE (test code = CREAT) 0.6 mg/dL 0.6-1.3 N CALCIUM (test code = CA) 8.1 mg/dL 8.0-10.5 N CBC W/AUTO [id number] 07:08:00* Test Item Value Reference Range Interpretation Comme nts WHITE BLOOD CELL (test code = WBC) 8.5 x10 3/uL 4.5-11.0 N RED BLOOD CELL (test code = RBC) 2.87 x10 6/uL 4.00-5.60 L HEMOGLOBIN (test code = HGB) 8.7 g/dL 12.5-16.9 L HEMATOCRIT (test code = HCT) 28.0 % 37.5-50.7 L MEAN CELL VOLUME (test code = MCV) 97.6 fL 81.0-99.0 N MEAN CELL HGB (test code = MCH) 30.3 pg 27.0-33.0 N MEAN CELL HGB CONCETRATION (test code = MCHC) 31.1 g/dL 33.0-37.0 L RED CELL DISTRIBUTION WIDTH CV (test code = RDW) 14.0 % 11.5-14.5 N RED CELL DISTRIBUTION WIDTH SD (test code = RDW-SD) 49.3 fL 37.0-54.0 N PLATELET COUNT (test code = PLT) 346 x10 3/uL 150-400 N MEAN PLATELET VOLUME (test c ode = MPV) 8.8 fL 7.0-9.0 N NEUTROPHIL % (test code = NT%) 54.9 % 56.0-77.0 L IMMATURE GRANULOCYTE % (test code = IG%) 0.5 % 0.0-2.0 N LYMPHOCYTE % (test code = LY%) 34.2 % 14.0-32.0 H MONOCYTE % (test code = MO%) 9.5 % 4.8-9.0 H EOSINOPHIL % (test code = EO%) 0.7 % 0.3-3.7 N BASOPHIL % (test code = BA%) 0.2 % 0.0-2.0 N NUCLEATED RBC % (test code = NRBC%) 0.0 % 0-0 N NEUTROPHIL # (test code = NT#) 4.66 x10 3/uL 2.0-7.6 N IMMATURE GRANULOCYTE # (test code = IG#) 0.04 x10 3/uL 0.00-0.03 H LYMPHOCYTE # (test code = LY#) 2.90 x10 3/uL 1.0-3.8 N MONOCYTE # (test code = MO#) 0.81 x10 3/uL 0.1-0.8 H EOSINOPHIL # (test code = EO#) 0.06 x10 3/uL 0.0-0.2 N BASOPHIL # (test code = BA#) 0.02 x10 3/uL 0.0-0.2 N NUCLEATED RBC # (test code = NRBC#) 0.00 x10 3/uL 0.0-0.1 N MANUAL DIFF REQUIRED (test c ode = MDIFF) NO PROTHROMBIN [id number] 06:19:00* Test Item Value Reference Range Interpretation Comme nts PROTHROMBIN TIME PATIENT (test code = PTP) 13.1 SECONDS 9.3-12.9 H INTERNATIONAL NORMAL RATIO (test code = INR) 1.2 0.8-1.2 N TARGET INR BY INDICATION Indication INR1. Prophylaxis of venous thrombosis 2.0 - 3.0 (orthopedic surgery), Prophylaxis of venous thrombosis (other than high-risk surgery), Treatment of Deep Vein Thrombosis/Pulmonary Embolism, Prevention of systemic embolism - Tissue heart valves, Acute Myocardial Infarction (to prevent systemic embolism), Valvular heart disease, Atrial Fibrillation, Bileaflet mechanical valve in aortic position.2. Mechanical prosthetic valves (high risk), 2.5 - 3.5 Presence of Lupus Anticoagulant or Antiphospholipid Antibodies, Prevention of systemic embolism - Acute Myocardial Infarction (to prevent recurrent infarct). BASIC METABOLIC [id number] 06:02:00* Test Item Value Reference Range Interpretation Comme nts SODIUM (test code = NA) 140 mEq/L 134-147 N POTASSIUM (test code = K) 4.1 mEq/L 3.4-5.0 N CHLORIDE (test code = CL) 103 mEq/L 100-108 N CARBON DIOXIDE (test code = CO2) 29 mEq/l 21-33 N ANION GAP (test code = GAP) 12 0-20 N GLUCOSE (test code = GLU) 83 mg/dL 70-110 N BLOOD UREA NITROGEN (test code = BUN) 15 mg/dL 7-18 N GLOMERULAR FILTRATION RATE (test code = GFR) 99.3 90-95 H Units of measure = ml/min/1.73 m2 CREATININE (test code = CREAT) 0.8 mg/dL 0.6-1.3 N CALCIUM (test code = CA) 9.1 mg/dL 8.0-10.5 N CBC W/AUTO [id number] 06:01:00* Test Item Value Reference Range Interpretation Comme nts WHITE BLOOD CELL (test code = WBC) 8.1 x10 3/uL 4.5-11.0 N RED BLOOD CELL (test code = RBC) 3.28 x10 6/uL 4.00-5.60 L HEMOGLOBIN (test code = HGB) 9.9 g/dL 12.5-16.9 L HEMATOCRIT (test code = HCT) 31.5 % 37.5-50.7 L MEAN CELL VOLUME (test code = MCV) 96.0 fL 81.0-99.0 N MEAN CELL HGB (test code = MCH) 30.2 pg 27.0-33.0 N MEAN CELL HGB CONCETRATION (test code = MCHC) 31.4 g/dL 33.0-37.0 L RED CELL DISTRIBUTION WIDTH CV (test code = RDW) 13.7 % 11.5-14.5 N RED CELL DISTRIBUTION WIDTH SD (test code = RDW-SD) 48.5 fL 37.0-54.0 N PLATELET COUNT (test code = PLT) 354 x10 3/uL 150-400 N MEAN PLATELET VOLUME (test c ode = MPV) 8.9 fL 7.0-9.0 N NEUTROPHIL % (test code = NT%) 50.3 % 56.0-77.0 L IMMATURE GRANULOCYTE % (test code = IG%) 0.2 % 0.0-2.0 N LYMPHOCYTE % (test code = LY%) 39.1 % 14.0-32.0 H MONOCYTE % (test code = MO%) 7.9 % 4.8-9.0 N EOSINOPHIL % (test code = EO%) 2.1 % 0.3-3.7 N BASOPHIL % (test code = BA%) 0.4 % 0.0-2.0 N NUCLEATED RBC % (test code = NRBC%) 0.0 % 0-0 N NEUTROPHIL # (test code = NT#) 4.07 x10 3/uL 2.0-7.6 N IMMATURE GRANULOCYTE # (test code = IG#) 0.02 x10 3/uL 0.00-0.03 N LYMPHOCYTE # (test code = LY#) 3.16 x10 3/uL 1.0-3.8 N MONOCYTE # (test code = MO#) 0.64 x10 3/uL 0.1-0.8 N EOSINOPHIL # (test code = EO#) 0.17 x10 3/uL 0.0-0.2 N BASOPHIL # (test code = BA#) 0.03 x10 3/uL 0.0-0.2 N NUCLEATED RBC # (test code = NRBC#) 0.00 x10 3/uL 0.0-0.1 N MANUAL DIFF REQUIRED (test c ode = MDIFF) NO GLUCOSE [id number] 05:59:00* Test Item Value Reference Range Interpretation Comme nts GLUCOSE BEDSIDE (test code = GLUBED) 78 MG/DL 70-110 N Performed by cer maliha napkin machine operator at [facility] - XR CHEST 1 [id number] 00:00:00 [facility] 1965 Sex: M FAX: Rayo Adkins DPM [phone] [facility]: ADM FAX: Savanna Louise [phone] FAX: Roselia Marquez MD [phone] Name: VIKA CHEN [facility] : 1965 Age/S: 56/M [address] [place] [address] Unit #: [id number] Loc: [address] [address] Phys: Rayo Moreira DPM Acct: [id number] Dis Date: Status: ADM IN PHONE #: [phone] Exam Date: 11/12/20211856 FAX #: [phone] Reason: PRE OP EXAMS: CPT CODE: [id number] XR CHEST 1 V 16392 PROCEDURE INFORMATION: Exam: XR Chest Exam date [...] 0700 Reported and signed by: Faustino Sims M.D.CC: Rayo Moreira DPM; Savanna Lira MD; Roselia Burton MD Technologist: RT Clara(R) Trnscrd Date/Time/By: 11/13/2021 (0700) : By: [email or web address] Orig Print D/T: S: 11/13/2021 (1038) PAGE 1 Signed ReportCOVID 19 Asymptomatic IH [id number] 10:31:00* Test Item Value Reference Range Interpretation Comme nts COVID 19 Asymptomatic IH AG (test code = COVNONPUIAG) Negative Negative A negative resul t is presumptive and should be confirmedwith an FDA authorized molecular assay, if necessary forpatient management.A positive result does not rule out co-infections withother pathogens.This test detects both viable (live) and non-viable,SARS-CoV, and SARS-CoV-2. Test performance depends on theamount of virus (antigen) in the sample.This test has not been FDA cleared or approved; the test hasbeen authorized by FDA under an Emergency Use Authorization(EUA) for use by laboratories certified under the CLIA thatmeet the requirements to perform moderate, high or waivedcomplexity tests. VANCOMYCIN [id number] 05:05:00* Test Item Value Reference Range Interpretation Comme nts VANCOMYCIN TROUGH (test code = VANCT) 15.0 mcg/mL 10.0-20.0 N 10-15 mcg/mL - Cellulitis, Urinary Tract Infection. 15-20 mcg/mL - Bacteremia, Infective Endocarditis, Meningitis, Osteomyelitis, Pneumonia, Severe Skin/Soft-Tissue Infection, Spinal Abscess. GLUCOSE [id number] 22:18:00* Test Item Value Reference Range Interpretation Comme nts GLUCOSE BEDSIDE (test code = GLUBED) 95 MG/DL 70-110 N Performed by cer tified napkin machine operator at [facility] GLUCOSE [id number] 15:48:00* Test Item Value Reference Range Interpretation Comme nts GLUCOSE BEDSIDE (test code = GLUBED) 65 MG/DL 70-110 L Performed by cer tified napkin machine operator at [facility] GLUCOSE [id number] 11:32:00* Test Item Value Reference Range Interpretation Comme nts GLUCOSE BEDSIDE (test code = GLUBED) 98 MG/DL 70-110 N Performed by cer tified napkin machine operator at [facility] GLUCOSE [id number] 07:44:00* Test Item Value Reference Range Interpretation Comme nts GLUCOSE BEDSIDE (test code = GLUBED) 86 MG/DL 70-110 N Performed by cer tified napkin machine operator at [facility] GLUCOSE [id number] 20:12:00* Test Item Value Reference Range Interpretation Comme nts GLUCOSE BEDSIDE (test code = GLUBED) 109 MG/DL 70-110 N Performed by cer tified napkin machine operator at [facility] GLUCOSE [id number] 16:27:00* Test Item Value Reference Range Interpretation Comme nts GLUCOSE BEDSIDE (test code = GLUBED) 98 MG/DL 70-110 N Performed by cer tified napkin machine operator at [facility] VANCOMYCIN [id number] 14:11:00* Test Item Value Reference Range Interpretation Comme nts VANCOMYCIN TROUGH (test code = VANCT) 8.2 mcg/mL 10.0-20.0 L 10-15 mcg/mL - Cellulitis, Urinary Tract Infection. 15-20 mcg/mL - Bacteremia, Infective Endocarditis, Meningitis, Osteomyelitis, Pneumonia, Severe Skin/Soft-Tissue Infection, Spinal Abscess. BASIC METABOLIC [id number] 14:08:00* Test Item Value Reference Range Interpretation Comme nts SODIUM (test code = NA) 139 mEq/L 134-147 N POTASSIUM (test code = K) 4.6 mEq/L 3.4-5.0 N CHLORIDE (test code = CL) 99 mEq/L 100-108 L CARBON DIOXIDE (test code = CO2) 32 mEq/l 21-33 N ANION GAP (test code = GAP) 13 0-20 N GLUCOSE (test code = GLU) 93 mg/dL 70-110 N BLOOD UREA NITROGEN (test code = BUN) 15 mg/dL 7-18 N GLOMERULAR FILTRATION RATE (test code = GFR) 99.3 90-95 H Units of measure = ml/min/1.73 m2 CREATININE (test code = CREAT) 0.8 mg/dL 0.6-1.3 N CALCIUM (test code = CA) 9.0 mg/dL 8.0-10.5 N CBC W/AUTO [id number] 13:55:00* Test Item Value Reference Range Interpretation Comme nts WHITE BLOOD CELL (test code = WBC) 7.3 x10 3/uL 4.5-11.0 N RED BLOOD CELL (test code = RBC) 3.27 x10 6/uL 4.00-5.60 L HEMOGLOBIN (test code = HGB) 10.0 g/dL 12.5-16.9 L HEMATOCRIT (test code = HCT) 31.3 % 37.5-50.7 L MEAN CELL VOLUME (test code = MCV) 95.7 fL 81.0-99.0 N MEAN CELL HGB (test code = MCH) 30.6 pg 27.0-33.0 N MEAN CELL HGB CONCETRATION (test code = MCHC) 31.9 g/dL 33.0-37.0 L RED CELL DISTRIBUTION WIDTH CV (test code = RDW) 13.3 % 11.5-14.5 N RED CELL DISTRIBUTION WIDTH SD (test code = RDW-SD) 47.3 fL 37.0-54.0 N PLATELET COUNT (test code = PLT) 308 x10 3/uL 150-400 N MEAN PLATELET VOLUME (test c ode = MPV) 9.0 fL 7.0-9.0 N NEUTROPHIL % (test code = NT%) 56.7 % 56.0-77.0 N IMMATURE GRANULOCYTE % (test code = IG%) 0.3 % 0.0-2.0 N LYMPHOCYTE % (test code = LY%) 31.6 % 14.0-32.0 N MONOCYTE % (test code = MO%) 9.3 % 4.8-9.0 H EOSINOPHIL % (test code = EO%) 1.8 % 0.3-3.7 N BASOPHIL % (test code = BA%) 0.3 % 0.0-2.0 N NUCLEATED RBC % (test code = NRBC%) 0.0 % 0-0 N NEUTROPHIL # (test code = NT#) 4.16 x10 3/uL 2.0-7.6 N IMMATURE GRANULOCYTE # (test code = IG#) 0.02 x10 3/uL 0.00-0.03 N LYMPHOCYTE # (test code = LY#) 2.31 x10 3/uL 1.0-3.8 N MONOCYTE # (test code = MO#) 0.68 x10 3/uL 0.1-0.8 N EOSINOPHIL # (test code = EO#) 0.13 x10 3/uL 0.0-0.2 N BASOPHIL # (test code = BA#) 0.02 x10 3/uL 0.0-0.2 N NUCLEATED RBC # (test code = NRBC#) 0.00 x10 3/uL 0.0-0.1 N MANUAL DIFF REQUIRED (test c ode = MDIFF) NO GLUCOSE [id number] 11:41:00* Test Item Value Reference Range Interpretation Comme nts GLUCOSE BEDSIDE (test code = GLUBED) 95 MG/DL 70-110 N Performed by cer tified napkin machine operator at [facility] GLUCOSE [id number] 07:36:00* Test Item Value Reference Range Interpretation Comme nts GLUCOSE BEDSIDE (test code = GLUBED) 83 MG/DL 70-110 N Performed by cer tified napkin machine operator at [facility] GLUCOSE [id number] 19:49:00* Test Item Value Reference Range Interpretation Comme nts GLUCOSE BEDSIDE (test code = GLUBED) 116 MG/DL 70-110 H Performed by cer tified napkin machine operator at [facility] VANCOMYCIN [id number] 17:07:00* Test Item Value Reference Range Interpretation Comme nts VANCOMYCIN TROUGH (test code = VANCT) < 3.0 mcg/mL 10.0-20.0 L 10-15 mcg/mL - Cellulitis, Urinary Tract Infection. 15-20 mcg/mL - Bacteremia, Infective Endocarditis, Meningitis, Osteomyelitis, Pneumonia, Severe Skin/Soft-Tissue Infection, Spinal Abscess. GLUCOSE [id number] 16:51:00* Test Item Value Reference Range Interpretation Comme nts GLUCOSE BEDSIDE (test code = GLUBED) 97 MG/DL 70-110 N Performed by cer tified napkin machine operator at [facility] GLUCOSE [id number] 11:19:00* Test Item Value Reference Range Interpretation Comme nts GLUCOSE BEDSIDE (test code = GLUBED) 149 MG/DL 70-110 H Performed by cer tified napkin machine operator at [facility] GLUCOSE [id number] 09:02:00* Test Item Value Reference Range Interpretation Comme nts GLUCOSE BEDSIDE (test code = GLUBED) 101 MG/DL 70-110 N Performed by cer tified napkin machine operator at [facility] GLUCOSE [id number] 16:24:00* Test Item Value Reference Range Interpretation Comme nts GLUCOSE BEDSIDE (test code = GLUBED) 96 MG/DL 70-110 N Performed by cer tified napkin machine operator at [facility] GLUCOSE [id number] 12:34:00* Test Item Value Reference Range Interpretation Comme nts GLUCOSE BEDSIDE (test code = GLUBED) 93 MG/DL 70-110 N Performed by cer tified napkin machine operator at [facility] GLUCOSE [id number] 07:59:00* Test Item Value Reference Range Interpretation Comme nts GLUCOSE BEDSIDE (test code = GLUBED) 87 MG/DL 70-110 N Performed by cer tified napkin machine operator at [facility] BLOOD UREA [id number] 04:11:00* Test Item Value Reference Range Interpretation Comme nts BLOOD UREA NITROGEN (test co de = BUN) 13 mg/dL 7-18 [id number] 04:11:00* Test Item Value Reference Range Interpretation Comme nts CREATININE (test code = CREAT) 0.7 mg/dL 0.6-1.3 N GLUCOSE [id number] 20:35:00* Test Item Value Reference Range Interpretation Comme nts GLUCOSE BEDSIDE (test code = GLUBED) 106 MG/DL 70-110 N Performed by cer tified napkin machine operator at [facility] GLUCOSE [id number] 16:32:00* Test Item Value Reference Range Interpretation Comme nts GLUCOSE BEDSIDE (test code = GLUBED) 109 MG/DL 70-110 N Performed by cer tified napkin machine operator at [facility] COMPREHENSIVE METABOLIC [id number] 16:02:00* Test Item Value Reference Range Interpretation Comme nts SODIUM (test code = NA) 137 mEq/L 134-147 N POTASSIUM (test code = K) 4.2 mEq/L 3.4-5.0 N CHLORIDE (test code = CL) 103 mEq/L 100-108 N CARBON DIOXIDE (test code = CO2) 28 mEq/l 21-33 N ANION GAP (test code = GAP) 10 0-20 N GLUCOSE (test code = GLU) 120 mg/dL 70-110 H BLOOD UREA NITROGEN (test code = BUN) 9 mg/dL 7-18 N GLOMERULAR FILTRATION RATE (test code = GFR) 99.3 90-95 H Units of measure = ml/min/1.73 m2 CREATININE (test code = CREAT) 0.8 mg/dL 0.6-1.3 N TOTAL PROTEIN (test code = PROT) 6.6 g/dL 6.4-8.2 N ALBUMIN (test code = ALB) 2.60 g/dL 3.4-5.0 L CALCIUM (test code = CA) 8.6 mg/dL 8.0-10.5 N BILIRUBIN TOTAL (test code = BILT) 0.30 mg/dL 0.0-1.0 N SGOT/AST (test code = AST) 32 IUnit/L 15-37 N SGPT/ALT (test code = ALT) 27 IUnit/L 30-65 L ALKALINE PHOSPHATASE TOTAL (test code = ALKP) 63 IUnit/L 20-125 N GLUCOSE [id number] 12:00:00* Test Item Value Reference Range Interpretation Comme nts GLUCOSE BEDSIDE (test code = GLUBED) 105 MG/DL 70-110 N Performed by cer tified napkin machine operator at [facility] GLUCOSE [id number] 07:18:00* Test Item Value Reference Range Interpretation Comme nts GLUCOSE BEDSIDE (test code = GLUBED) 85 MG/DL 70-110 N Performed by cer tified napkin machine operator at [facility] GLUCOSE [id number] 20:30:00* Test Item Value Reference Range Interpretation Comme nts GLUCOSE BEDSIDE (test code = GLUBED) 76 MG/DL 70-110 N Performed by cer tified napkin machine operator at [facility] VANCOMYCIN [id number] 17:08:00* Test Item Value Reference Range Interpretation Comme nts VANCOMYCIN TROUGH (test code = VANCT) 14.2 mcg/mL 10.0-20.0 N 10-15 mcg/mL - Cellulitis, Urinary Tract Infection. 15-20 mcg/mL - Bacteremia, Infective Endocarditis, Meningitis, Osteomyelitis, Pneumonia, Severe Skin/Soft-Tissue Infection, Spinal Abscess. GLUCOSE [id number] 16:39:00* Test Item Value Reference Range Interpretation Comme nts GLUCOSE BEDSIDE (test code = GLUBED) 109 MG/DL 70-110 N Performed by cer tified napkin machine operator at [facility] GLUCOSE [id number] 11:46:00* Test Item Value Reference Range Interpretation Comme nts GLUCOSE BEDSIDE (test code = GLUBED) 103 MG/DL 70-110 N Performed by cer tified napkin machine operator at [facility] GLUCOSE [id number] 06:48:00* Test Item Value Reference Range Interpretation Comme nts GLUCOSE BEDSIDE (test code = GLUBED) 75 MG/DL 70-110 N Performed by cer tified napkin machine operator at [facility] GLUCOSE [id number] 19:41:00* Test Item Value Reference Range Interpretation Comme nts GLUCOSE BEDSIDE (test code = GLUBED) 98 MG/DL 70-110 N Performed by cer tified napkin machine operator at [facility] GLUCOSE [id number] 17:07:00* Test Item Value Reference Range Interpretation Comme nts GLUCOSE BEDSIDE (test code = GLUBED) 87 MG/DL 70-110 N Performed by cer tified napkin machine operator at [facility] GLUCOSE [id number] 12:34:00* Test Item Value Reference Range Interpretation Comme nts GLUCOSE BEDSIDE (test code = GLUBED) 105 MG/DL 70-110 N Performed by cer tified napkin machine operator at [facility] GLUCOSE [id number] 09:08:00* Test Item Value Reference Range Interpretation Comme nts GLUCOSE BEDSIDE (test code = GLUBED) 130 MG/DL 70-110 H Performed by cer tified napkin machine operator at [facility] BASIC METABOLIC [id number] 08:05:00* Test Item Value Reference Range Interpretation Comme nts SODIUM (test code = NA) 136 mEq/L 134-147 N POTASSIUM (test code = K) 3.9 mEq/L 3.4-5.0 N CHLORIDE (test code = CL) 104 mEq/L 100-108 N CARBON DIOXIDE (test code = CO2) 23 mEq/l 21-33 N ANION GAP (test code = GAP) 13 0-20 N GLUCOSE (test code = GLU) 81 mg/dL 70-110 N BLOOD UREA NITROGEN (test code = BUN) 11 mg/dL 7-18 N GLOMERULAR FILTRATION RATE (test code = GFR) 99.3 90-95 H Units of measure = ml/min/1.73 m2 CREATININE (test code = CREAT) 0.8 mg/dL 0.6-1.3 N CALCIUM (test code = CA) 9.1 mg/dL 8.0-10.5 N CBC W/AUTO [id number] 07:49:00* Test Item Value Reference Range Interpretation Comme nts WHITE BLOOD CELL (test code = WBC) 7.2 x10 3/uL 4.5-11.0 RED BLOOD CELL (test code = RBC) 3.43 x10 6/uL 4.00-5.60 L HEMOGLOBIN (test code = HGB) 10.8 g/dL 12.5-16.9 L HEMATOCRIT (test code = HCT) 34.4 % 37.5-50.7 L MEAN CELL VOLUME (test code = MCV) 100.3 fL 81.0-99.0 H MEAN CELL HGB (test code = MCH) 31.5 pg 27.0-33.0 N MEAN CELL HGB CONCETRATION (test code = MCHC) 31.4 g/dL 33.0-37.0 L RED CELL DISTRIBUTION WIDTH CV (test code = RDW) 13.4 % 11.5-14.5 N RED CELL DISTRIBUTION WIDTH SD (test code = RDW-SD) 49.7 fL 37.0-54.0 N PLATELET COUNT (test code = PLT) 247 x10 3/uL 150-400 N MEAN PLATELET VOLUME (test c ode = MPV) 9.1 fL 7.0-9.0 H NEUTROPHIL % (test code = NT%) 66.4 % 56.0-77.0 N IMMATURE GRANULOCYTE % (test code = IG%) 0.3 % 0.0-2.0 N LYMPHOCYTE % (test code = LY%) 25.9 % 14.0-32.0 N MONOCYTE % (test code = MO%) 5.7 % 4.8-9.0 N EOSINOPHIL % (test code = EO%) 1.3 % 0.3-3.7 N BASOPHIL % (test code = BA%) 0.4 % 0.0-2.0 N NUCLEATED RBC % (test code = NRBC%) 0.0 % 0-0 N NEUTROPHIL # (test code = NT#) 4.75 x10 3/uL 2.0-7.6 N IMMATURE GRANULOCYTE # (test code = IG#) 0.02 x10 3/uL 0.00-0.03 N LYMPHOCYTE # (test code = LY#) 1.85 x10 3/uL 1.0-3.8 N MONOCYTE # (test code = MO#) 0.41 x10 3/uL 0.1-0.8 N EOSINOPHIL # (test code = EO#) 0.09 x10 3/uL 0.0-0.2 N BASOPHIL # (test code = BA#) 0.03 x10 3/uL 0.0-0.2 N NUCLEATED RBC # (test code = NRBC#) 0.00 x10 3/uL 0.0-0.1 N MANUAL DIFF REQUIRED (test c ode = MDIFF) NO GLUCOSE [id number] 21:23:00* Test Item Value Reference Range Interpretation Comme nts GLUCOSE BEDSIDE (test code = GLUBED) 91 MG/DL 70-110 N Performed by cer tified napkin machine operator at [facility] GLUCOSE [id number] 16:42:00* Test Item Value Reference Range Interpretation Comme nts GLUCOSE BEDSIDE (test code = GLUBED) 89 MG/DL 70-110 N Performed by cer tified napkin machine operator at [facility] GLUCOSE [id number] 12:20:00* Test Item Value Reference Range Interpretation Comme nts GLUCOSE BEDSIDE (test code = GLUBED) 74 MG/DL 70-110 N Performed by cer tified napkin machine operator at [facility] GLUCOSE [id number] 22:34:00* Test Item Value Reference Range Interpretation Comme nts GLUCOSE BEDSIDE (test code = GLUBED) 98 MG/DL 70-110 N Performed by cer tified napkin machine operator at [facility] GLUCOSE [id number] 15:35:00* Test Item Value Reference Range Interpretation Comme nts GLUCOSE BEDSIDE (test code = GLUBED) 106 MG/DL 70-110 N Performed by cer tified napkin machine operator at [facility] GLUCOSE [id number] 07:51:00* Test Item Value Reference Range Interpretation Comme nts GLUCOSE BEDSIDE (test code = GLUBED) 110 MG/DL 70-110 N Performed by cer tified napkin machine operator at [facility] CBC W/AUTO [id number] 07:02:00* Test Item Value Reference Range Interpretation Comme nts WHITE BLOOD CELL (test code = WBC) 13.4 x10 3/uL 4.5-11.0 H RED BLOOD CELL (test code = RBC) 3.78 x10 6/uL 4.00-5.60 L HEMOGLOBIN (test code = HGB) 11.4 g/dL 12.5-16.9 L HEMATOCRIT (test code = HCT) 36.4 % 37.5-50.7 L MEAN CELL VOLUME (test code = MCV) 96.3 fL 81.0-99.0 N MEAN CELL HGB (test code = MCH) 30.2 pg 27.0-33.0 N MEAN CELL HGB CONCETRATION (test code = MCHC) 31.3 g/dL 33.0-37.0 L RED CELL DISTRIBUTION WIDTH CV (test code = RDW) 13.2 % 11.5-14.5 N RED CELL DISTRIBUTION WIDTH SD (test code = RDW-SD) 47.0 fL 37.0-54.0 N PLATELET COUNT (test code = PLT) 363 x10 3/uL 150-400 N MEAN PLATELET VOLUME (test code = MPV) 9.1 fL 7.0-9.0 H NEUTROPHIL % (test code = NT%) 76.7 % 56.0-77.0 N IMMATURE GRANULOCYTE % (test code = IG%) 0.4 % 0.0-2.0 N LYMPHOCYTE % (test code = LY%) 17.2 % 14.0-32.0 N MONOCYTE % (test code = MO%) 5.4 % 4.8-9.0 N EOSINOPHIL % (test code = EO%) 0.1 % 0.3-3.7 L BASOPHIL % (test code = BA%) 0.2 % 0.0-2.0 N NUCLEATED RBC % (test code = NRBC%) 0.0 % 0-0 N NEUTROPHIL # (test code = NT#) 10.27 x10 3/uL 2.0-7.6 H IMMATURE GRANULOCYTE # (test code = IG#) 0.05 x10 3/uL 0.00-0.03 H LYMPHOCYTE # (test code = LY#) 2.31 x10 3/uL 1.0-3.8 N MONOCYTE # (test code = MO#) 0.73 x10 3/uL 0.1-0.8 N EOSINOPHIL # (test code = EO#) 0.01 x10 3/uL 0.0-0.2 N BASOPHIL # (test code = BA#) 0.03 x10 3/uL 0.0-0.2 N NUCLEATED RBC # (test code = NRBC#) 0.00 x10 3/uL 0.0-0.1 N MANUAL DIFF REQUIRED (test code = MDIFF) NO BASIC METABOLIC [id number] 06:15:00* Test Item Value Reference Range Interpretation Comme nts SODIUM (test code = NA) 137 mEq/L 134-147 N POTASSIUM (test code = K) 4.1 mEq/L 3.4-5.0 N CHLORIDE (test code = CL) 103 mEq/L 100-108 N CARBON DIOXIDE (test code = CO2) 27 mEq/l 21-33 N ANION GAP (test code = GAP) 11 0-20 N GLUCOSE (test code = GLU) 109 mg/dL 70-110 N BLOOD UREA NITROGEN (test code = BUN) 17 mg/dL 7-18 N GLOMERULAR FILTRATION RATE (test code = GFR) 99.3 90-95 H Units of measure = ml/min/1.73 m2 CREATININE (test code = CREAT) 0.8 mg/dL 0.6-1.3 N CALCIUM (test code = CA) 9.0 mg/dL 8.0-10.5 N VALPROIC ACID (DEPAKENE)2021-11-03 06:15:00* Test Item Value Reference Range Interpretation Comme nts VALPROIC ACID (DEPAKENE) (te st code = VALP) 21 MCG/ML 50.0-100.0 L GLUCOSE [id number] 20:02:00* Test Item Value Reference Range Interpretation Comme nts GLUCOSE BEDSIDE (test code = GLUBED) 98 MG/DL 70-110 N Performed by cer tified napkin machine operator at [facility] GLUCOSE [id number] 16:08:00* Test Item Value Reference Range Interpretation Comme nts GLUCOSE BEDSIDE (test code = GLUBED) 83 MG/DL 70-110 N Performed by [employer] machine operator at [facility] GLUCOSE [id number] 12:05:00* Test Item Value Reference Range Interpretation Comme nts GLUCOSE BEDSIDE (test code = GLUBED) 90 MG/DL 70-110 N Performed by cer tified napkin machine operator at [facility] GLUCOSE [id number] 09:59:00* Test Item Value Reference Range Interpretation Comme nts GLUCOSE BEDSIDE (test code = GLUBED) 75 MG/DL 70-110 N Performed by cer tified napkin machine operator at [facility] GLUCOSE [id number] 08:47:00* Test Item Value Reference Range Interpretation Comme nts GLUCOSE BEDSIDE (test code = GLUBED) 71 MG/DL 70-110 N Performed by [employer] tified napkin machine operator at [facility] GLUCOSE [id number] 08:16:00* Test Item Value Reference Range Interpretation Comme nts GLUCOSE BEDSIDE (test code = GLUBED) 59 MG/DL 70-110 L Performed by [employer] napkin machine operator at [facility] BASIC METABOLIC [id number] 07:59:00* Test Item Value Reference Range Interpretation Comme nts SODIUM (test code = NA) 137 mEq/L 134-147 N POTASSIUM (test code = K) 3.8 mEq/L 3.4-5.0 N CHLORIDE (test code = CL) 102 mEq/L 100-108 N CARBON DIOXIDE (test code = CO2) 28 mEq/l 21-33 N ANION GAP (test code = GAP) 11 0-20 N GLUCOSE (test code = GLU) 93 mg/dL 70-110 N BLOOD UREA NITROGEN (test code = BUN) 16 mg/dL 7-18 N GLOMERULAR FILTRATION RATE (test code = GFR) 86.7 90-95 L Units of measure = ml/min/1.73 m2 CREATININE (test code = CREAT) 0.9 mg/dL 0.6-1.3 N CALCIUM (test code = CA) 9.1 mg/dL 8.0-10.5 N CBC W/AUTO [id number] 07:49:00* Test Item Value Reference Range Interpretation Comme nts WHITE BLOOD CELL (test code = WBC) 10.2 x10 3/uL 4.5-11.0 N RED BLOOD CELL (test code = RBC) 3.73 x10 6/uL 4.00-5.60 L HEMOGLOBIN (test code = HGB) 11.5 g/dL 12.5-16.9 L HEMATOCRIT (test code = HCT) 35.9 % 37.5-50.7 L MEAN CELL VOLUME (test code = MCV) 96.2 fL 81.0-99.0 N MEAN CELL HGB (test code = MCH) 30.8 pg 27.0-33.0 N MEAN CELL HGB CONCETRATION (test code = MCHC) 32.0 g/dL 33.0-37.0 L RED CELL DISTRIBUTION WIDTH CV (test code = RDW) 13.3 % 11.5-14.5 N PLATELET COUNT (test code = PLT) 334 x10 3/uL 150-400 N NEUTROPHIL % (test code = NT%) 63.6 % 56.0-77.0 N LYMPHOCYTE % (test code = LY%) 27.7 % 14.0-32.0 N NEUTROPHIL # (test code = NT#) 6.51 x10 3/uL 2.0-7.6 N LYMPHOCYTE # (test code = LY#) 2.83 x10 3/uL 1.0-3.8 N MANUAL DIFF REQUIRED (test c ode = MDIFF) NO RED CELL DISTRIBUTION WIDTH SD (test code = RDW-SD) 47.2 fL 37.0-54.0 N MEAN PLATELET VOLUME (test c ode = MPV) 9.2 fL 7.0-9.0 H IMMATURE GRANULOCYTE % (test code = IG%) 0.3 % 0.0-2.0 N MONOCYTE % (test code = MO%) 6.8 % 4.8-9.0 N EOSINOPHIL % (test code = EO%) 1.2 % 0.3-3.7 N BASOPHIL % (test code = BA%) 0.4 % 0.0-2.0 N NUCLEATED RBC % (test code = NRBC%) 0.0 % 0-0 N IMMATURE GRANULOCYTE # (test code = IG#) 0.03 x10 3/uL 0.00-0.03 N MONOCYTE # (test code = MO#) 0.70 x10 3/uL 0.1-0.8 N EOSINOPHIL # (test code = EO#) 0.12 x10 3/uL 0.0-0.2 N BASOPHIL # (test code = BA#) 0.04 x10 3/uL 0.0-0.2 N NUCLEATED RBC # (test code = NRBC#) 0.00 x10 3/uL 0.0-0.1 N COVID 19 Asymptomatic IH [id number] 06:23:00* Test Item Value Reference Range Interpretation Comme nts COVID 19 Asymptomatic IH AG (test code = COVNONPUIAG) Negative Negative A negative resul t is presumptive and should be confirmedwith an FDA authorized molecular assay, if necessary forpatient management.A positive result does not rule out co-infections withother pathogens.This test detects both viable (live) and non-viable,SARS-CoV, and SARS-CoV-2. Test performance depends on theamount of virus (antigen) in the sample.This test has not been FDA cleared or approved; the test hasbeen authorized by FDA under an Emergency Use Authorization(EUA) for use by laboratories certified under the CLIA thatmeet the requirements to perform moderate, high or waivedcomplexity tests. GLUCOSE [id number] 18:01:00* Test Item Value Reference Range Interpretation Comme nts GLUCOSE BEDSIDE (test code = GLUBED) 127 MG/DL 70-110 H Performed by cer tified napkin machine operator at [facility] VANCOMYCIN [id number] 14:38:00* Test Item Value Reference Range Interpretation Comme nts VANCOMYCIN TROUGH (test code = VANCT) 11.1 mcg/mL 10.0-20.0 N 10-15 mcg/mL - Cellulitis, Urinary Tract Infection. 15-20 mcg/mL - Bacteremia, Infective Endocarditis, Meningitis, Osteomyelitis, Pneumonia, Severe Skin/Soft-Tissue Infection, Spinal Abscess. GLUCOSE [id number] 12:15:00* Test Item Value Reference Range Interpretation Comme nts GLUCOSE BEDSIDE (test code = GLUBED) 130 MG/DL 70-110 H Performed by cer tified napkin machine operator at [facility] CBC W/AUTO [id number] 09:05:00* Test Item Value Reference Range Interpretation Comme nts WHITE BLOOD CELL (test code = WBC) 11.9 x10 3/uL 4.5-11.0 H RED BLOOD CELL (test code = RBC) 4.04 x10 6/uL 4.00-5.60 N HEMOGLOBIN (test code = HGB) 12.5 g/dL 12.5-16.9 N HEMATOCRIT (test code = HCT) 38.9 % 37.5-50.7 N MEAN CELL VOLUME (test code = MCV) 96.3 fL 81.0-99.0 N MEAN CELL HGB (test code = MCH) 30.9 pg 27.0-33.0 N MEAN CELL HGB CONCETRATION (test code = MCHC) 32.1 g/dL 33.0-37.0 L RED CELL DISTRIBUTION WIDTH CV (test code = RDW) 13.2 % 11.5-14.5 N PLATELET COUNT (test code = PLT) 309 x10 3/uL 150-400 N NEUTROPHIL % (test code = NT%) 73.4 % 56.0-77.0 N LYMPHOCYTE % (test code = LY%) 18.6 % 14.0-32.0 N NEUTROPHIL # (test code = NT#) 8.75 x10 3/uL 2.0-7.6 H LYMPHOCYTE # (test code = LY#) 2.21 x10 3/uL 1.0-3.8 N MANUAL DIFF REQUIRED (test c ode = MDIFF) NO RED CELL DISTRIBUTION WIDTH SD (test code = RDW-SD) 47.1 fL 37.0-54.0 N MEAN PLATELET VOLUME (test c ode = MPV) 8.7 fL 7.0-9.0 N IMMATURE GRANULOCYTE % (test code = IG%) 0.3 % 0.0-2.0 N MONOCYTE % (test code = MO%) 7.1 % 4.8-9.0 N EOSINOPHIL % (test code = EO%) 0.3 % 0.3-3.7 N BASOPHIL % (test code = BA%) 0.3 % 0.0-2.0 N NUCLEATED RBC % (test code = NRBC%) 0.0 % 0-0 N IMMATURE GRANULOCYTE # (test code = IG#) 0.04 x10 3/uL 0.00-0.03 H MONOCYTE # (test code = MO#) 0.84 x10 3/uL 0.1-0.8 H EOSINOPHIL # (test code = EO#) 0.03 x10 3/uL 0.0-0.2 N BASOPHIL # (test code = BA#) 0.04 x10 3/uL 0.0-0.2 N NUCLEATED RBC # (test code = NRBC#) 0.00 x10 3/uL 0.0-0.1 N GLUCOSE [id number] 08:31:00* Test Item Value Reference Range Interpretation Comme nts GLUCOSE BEDSIDE (test code = GLUBED) 104 MG/DL 70-110 N Performed by cer tified napkin machine operator at [facility] BASIC METABOLIC [id number] 07:54:00* Test Item Value Reference Range Interpretation Comme nts SODIUM (test code = NA) 137 mEq/L 134-147 N POTASSIUM (test code = K) 3.9 mEq/L 3.4-5.0 N CHLORIDE (test code = CL) 102 mEq/L 100-108 N CARBON DIOXIDE (test code = CO2) 26 mEq/l 21-33 N ANION GAP (test code = GAP) 13 0-20 N GLUCOSE (test code = GLU) 108 mg/dL 70-110 N BLOOD UREA NITROGEN (test code = BUN) 17 mg/dL 7-18 N GLOMERULAR FILTRATION RATE (test code = GFR) 99.3 90-95 H Units of measure = ml/min/1.73 m2 CREATININE (test code = CREAT) 0.8 mg/dL 0.6-1.3 N CALCIUM (test code = CA) 9.5 mg/dL 8.0-10.5 N GLUCOSE [id number] 21:02:00* Test Item Value Reference Range Interpretation Comme nts GLUCOSE BEDSIDE (test code = GLUBED) 118 MG/DL 70-110 H Performed by cer tified napkin machine operator at [facility] GLUCOSE [id number] 15:58:00* Test Item Value Reference Range Interpretation Comme nts GLUCOSE BEDSIDE (test code = GLUBED) 105 MG/DL 70-110 N Performed by cer tified napkin machine operator at [facility] GLUCOSE [id number] 12:08:00* Test Item Value Reference Range Interpretation Comme nts GLUCOSE BEDSIDE (test code = GLUBED) 112 MG/DL 70-110 H Performed by cer tified napkin machine operator at [facility] CBC W/AUTO [id number] 08:12:00* Test Item Value Reference Range Interpretation Comme nts WHITE BLOOD CELL (test code = WBC) 9.3 x10 3/uL 4.5-11.0 N RED BLOOD CELL (test code = RBC) 3.72 x10 6/uL 4.00-5.60 L HEMOGLOBIN (test code = HGB) 11.5 g/dL 12.5-16.9 L HEMATOCRIT (test code = HCT) 35.7 % 37.5-50.7 L MEAN CELL VOLUME (test code = MCV) 96.0 fL 81.0-99.0 N MEAN CELL HGB (test code = MCH) 30.9 pg 27.0-33.0 N MEAN CELL HGB CONCETRATION (test code = MCHC) 32.2 g/dL 33.0-37.0 L RED CELL DISTRIBUTION WIDTH CV (test code = RDW) 13.1 % 11.5-14.5 N PLATELET COUNT (test code = PLT) 335 x10 3/uL 150-400 N NEUTROPHIL % (test code = NT%) 67.9 % 56.0-77.0 N LYMPHOCYTE % (test code = LY%) 22.8 % 14.0-32.0 N NEUTROPHIL # (test code = NT#) 6.30 x10 3/uL 2.0-7.6 N LYMPHOCYTE # (test code = LY#) 2.12 x10 3/uL 1.0-3.8 N MANUAL DIFF REQUIRED (test c ode = MDIFF) NO RED CELL DISTRIBUTION WIDTH SD (test code = RDW-SD) 46.5 fL 37.0-54.0 N MEAN PLATELET VOLUME (test c ode = MPV) 9.1 fL 7.0-9.0 H IMMATURE GRANULOCYTE % (test code = IG%) 0.2 % 0.0-2.0 N MONOCYTE % (test code = MO%) 7.0 % 4.8-9.0 N EOSINOPHIL % (test code = EO%) 1.7 % 0.3-3.7 N BASOPHIL % (test code = BA%) 0.4 % 0.0-2.0 N NUCLEATED RBC % (test code = NRBC%) 0.0 % 0-0 N IMMATURE GRANULOCYTE # (test code = IG#) 0.02 x10 3/uL 0.00-0.03 N MONOCYTE # (test code = MO#) 0.65 x10 3/uL 0.1-0.8 N EOSINOPHIL # (test code = EO#) 0.16 x10 3/uL 0.0-0.2 N BASOPHIL # (test code = BA#) 0.04 x10 3/uL 0.0-0.2 N NUCLEATED RBC # (test code = NRBC#) 0.00 x10 3/uL 0.0-0.1 N GLUCOSE [id number] 07:51:00* Test Item Value Reference Range Interpretation Comme nts GLUCOSE BEDSIDE (test code = GLUBED) 103 MG/DL 70-110 N Performed by cer tified napkin machine operator at [facility] BASIC METABOLIC [id number] 07:34:00* Test Item Value Reference Range Interpretation Comme nts SODIUM (test code = NA) 135 mEq/L 134-147 N POTASSIUM (test code = K) 3.8 mEq/L 3.4-5.0 N CHLORIDE (test code = CL) 102 mEq/L 100-108 N CARBON DIOXIDE (test code = CO2) 25 mEq/l 21-33 N ANION GAP (test code = GAP) 11 0-20 N GLUCOSE (test code = GLU) 143 mg/dL 70-110 H BLOOD UREA NITROGEN (test code = BUN) 15 mg/dL 7-18 N GLOMERULAR FILTRATION RATE (test code = GFR) 86.7 90-95 L Units of measure = ml/min/1.73 m2 CREATININE (test code = CREAT) 0.9 mg/dL 0.6-1.3 CALCIUM (test code = CA) 8.9 mg/dL 8.0-10.5 N GLUCOSE [id number] 20:06:00* Test Item Value Reference Range Interpretation Comme nts GLUCOSE BEDSIDE (test code = GLUBED) 138 MG/DL 70-110 H Performed by cer tified napkin machine operator at [facility] GLUCOSE [id number] 16:20:00* Test Item Value Reference Range Interpretation Comme nts GLUCOSE BEDSIDE (test code = GLUBED) 89 MG/DL 70-110 N Performed by [employer] napkin machine operator at [facility] VANCOMYCIN [id number] 13:00:00* Test Item Value Reference Range Interpretation Comme nts VANCOMYCIN TROUGH (test code = VANCT) 17.8 mcg/mL 10.0-20.0 N 10-15 mcg/mL - Cellulitis, Urinary Tract Infection. 15-20 mcg/mL - Bacteremia, Infective Endocarditis, Meningitis, Osteomyelitis, Pneumonia, Severe Skin/Soft-Tissue Infection, Spinal Abscess. GLUCOSE [id number] 11:31:00* Test Item Value Reference Range Interpretation Comme nts GLUCOSE BEDSIDE (test code = GLUBED) 130 MG/DL 70-110 H Performed by [employer] tified napkin machine operator at [facility] BASIC METABOLIC [id number] 08:03:00* Test Item Value Reference Range Interpretation Comme nts SODIUM (test code = NA) 137 mEq/L 134-147 N POTASSIUM (test code = K) 3.9 mEq/L 3.4-5.0 N CHLORIDE (test code = CL) 103 mEq/L 100-108 N CARBON DIOXIDE (test code = CO2) 26 mEq/l 21-33 N ANION GAP (test code = GAP) 11 0-20 N GLUCOSE (test code = GLU) 79 mg/dL 70-110 N BLOOD UREA NITROGEN (test code = BUN) 14 mg/dL 7-18 GLOMERULAR FILTRATION RATE (test code = GFR) 115.8 90-95 H Units of measure = ml/min/1.73 m2 CREATININE (test code = CREAT) 0.7 mg/dL 0.6-1.3 N CALCIUM (test code = CA) 8.8 mg/dL 8.0-10.5 N GLUCOSE [id number] 07:23:00* Test Item Value Reference Range Interpretation Comme nts GLUCOSE BEDSIDE (test code = GLUBED) 82 MG/DL 70-110 N Performed by cer tified napkin machine operator at [facility] CBC W/AUTO [id number] 07:22:00* Test Item Value Reference Range Interpretation Comme nts WHITE BLOOD CELL (test code = WBC) 8.2 x10 3/uL 4.5-11.0 N RED BLOOD CELL (test code = RBC) 3.58 x10 6/uL 4.00-5.60 L HEMOGLOBIN (test code = HGB) 11.2 g/dL 12.5-16.9 L HEMATOCRIT (test code = HCT) 34.2 % 37.5-50.7 L MEAN CELL VOLUME (test code = MCV) 95.5 fL 81.0-99.0 N MEAN CELL HGB (test code = MCH) 31.3 pg 27.0-33.0 N MEAN CELL HGB CONCETRATION (test code = MCHC) 32.7 g/dL 33.0-37.0 L RED CELL DISTRIBUTION WIDTH CV (test code = RDW) 13.0 % 11.5-14.5 N PLATELET COUNT (test code = PLT) 322 x10 3/uL 150-400 N NEUTROPHIL % (test code = NT%) 57.6 % 56.0-77.0 N LYMPHOCYTE % (test code = LY%) 30.7 % 14.0-32.0 N NEUTROPHIL # (test code = NT#) 4.69 x10 3/uL 2.0-7.6 N LYMPHOCYTE # (test code = LY#) 2.50 x10 3/uL 1.0-3.8 N MANUAL DIFF REQUIRED (test c ode = MDIFF) NO RED CELL DISTRIBUTION WIDTH SD (test code = RDW-SD) 45.3 fL 37.0-54.0 N MEAN PLATELET VOLUME (test c ode = MPV) 9.2 fL 7.0-9.0 H IMMATURE GRANULOCYTE % (test code = IG%) 0.2 % 0.0-2.0 N MONOCYTE % (test code = MO%) 9.3 % 4.8-9.0 H EOSINOPHIL % (test code = EO%) 1.7 % 0.3-3.7 N BASOPHIL % (test code = BA%) 0.5 % 0.0-2.0 N NUCLEATED RBC % (test code = NRBC%) 0.0 % 0-0 N IMMATURE GRANULOCYTE # (test code = IG#) 0.02 x10 3/uL 0.00-0.03 N MONOCYTE # (test code = MO#) 0.76 x10 3/uL 0.1-0.8 N EOSINOPHIL # (test code = EO#) 0.14 x10 3/uL 0.0-0.2 N BASOPHIL # (test code = BA#) 0.04 x10 3/uL 0.0-0.2 N NUCLEATED RBC # (test code = NRBC#) 0.00 x10 3/uL 0.0-0.1 N GLUCOSE [id number] 22:30:00* Test Item Value Reference Range Interpretation Comme [facility] GLUCOSE BEDSIDE (test code = GLUBED) 187 MG/DL 70-110 H Performed by cer Cleeng napkin machine operator at [facility] GLUCOSE [id number] 20:31:00* Test Item Value Reference Range Interpretation Comme nts GLUCOSE BEDSIDE (test code = GLUBED) 57 MG/DL 70-110 L Performed by [employer] napkin machine operator at [facility] GLUCOSE [id number] 16:56:00* Test Item Value Reference Range Interpretation Comme [facility] GLUCOSE BEDSIDE (test code = GLUBED) 100 MG/DL 70-110 N Performed by [employer] napkin machine operator at [facility] [id number] 08:32:00* Test Item Value Reference Range Interpretation Comme nts HGBA1C% (test code = HGBA1C%) 5.6 %A1C 4.8-6.0 N BASIC METABOLIC [id number] 08:08:00* Test Item Value Reference Range Interpretation Comme nts SODIUM (test code = NA) 135 mEq/L 134-147 N POTASSIUM (test code = K) 4.3 mEq/L 3.4-5.0 N CHLORIDE (test code = CL) 100 mEq/L 100-108 N CARBON DIOXIDE (test code = CO2) 29 mEq/l 21-33 N ANION GAP (test code = GAP) 11 0-20 N GLUCOSE (test code = GLU) 90 mg/dL 70-110 N BLOOD UREA NITROGEN (test code = BUN) 19 mg/dL 7-18 H GLOMERULAR FILTRATION RATE (test code = GFR) 99.3 90-95 H Units of measure = ml/min/1.73 m2 CREATININE (test code = CREAT) 0.8 mg/dL 0.6-1.3 N CALCIUM (test code = CA) 8.4 mg/dL 8.0-10.5 N Indication for Test: Malabsorption/MalnutritioLIPID PROFILE (CORONARY RISK) 2021-10-29 08:08:00* Test Item Value Reference Range Interpretation Comme nts TRIGLYCERIDES (test code = TRIG) 104 mg/dL 40-150 N CHOLESTEROL (test code = CHOL) 108 mg/dL <200 CHOLESTEROL/HDL RATIO (test code = CHOLHDL) 3.70 RATIO 3.43-4.97 N RISK ASSOCIATED WITH CHOL/HDL RATIOS: RISK MALE FEMALE1/2 AVERAGE 3.43 3.27AVERAGE 4.97 4.442X AVERAGE 9.55 7.053X AVERAGE 23.39 11.04 NOTE THAT THE REFERENCE VALUE IS RELATEDTO RISK LEVELS RECOMMENDED BY THE NATL.HEART, LUNG, AND BLOOD INST. HDL CHOLESTEROL (test code = HDL) 29.2 mg/dL 32-72 L LIPOPROTEIN LDL (test code = LDL) 62.1 mg/dL 0-100 N <100 PLUWZHK64 0-129 NEAR OPTIMAL/ABOVE [id number] HIGH>BP=772 VERY HIGH*Guidelines provided by the National Cholesterol EducationProgram Adult Treatment Panel III Indication for Test: Malabsorption/MalnutritioT4 [id number] 08:08:00* Test Item Value Reference Range Interpretation Comme nts T4 FREE (test code = T4F) 1.1 ng/dL 0.77-1.61 N Indication for Test: Malabsorption/MalnutritioTHYROID STIMULATING HORMONE 2021-10-29 08:08:00* Test Item Value Reference Range Interpretation Comme nts THYROID STIMULATING HORMONE (test code = TSH) 3.95 0.42-5.47 N Result s in karsten-International Units/mL Indication for Test: Malabsorption/MalnutritioVITAMIN D [id number] 08:08:00* Test Item Value Reference Range Interpretation Comme nts VITAMIN D 25-HYDROXY (test c ode = VITD25) 25.2 ng/mL 30-100 L Indication for Test: Malabsorption/MalnutritioCBC W/AUTO [id number] 07:33:00 * Test Item Value Reference Range Interpretation Comme nts WHITE BLOOD CELL (test code = WBC) 10.0 x10 3/uL 4.5-11.0 N RED BLOOD CELL (test code = RBC) 3.86 x10 6/uL 4.00-5.60 L HEMOGLOBIN (test code = HGB) 12.3 g/dL 12.5-16.9 L HEMATOCRIT (test code = HCT) 37.1 % 37.5-50.7 L MEAN CELL VOLUME (test code = MCV) 96.1 fL 81.0-99.0 N MEAN CELL HGB (test code = MCH) 31.9 pg 27.0-33.0 N MEAN CELL HGB CONCETRATION (test code = MCHC) 33.2 g/dL 33.0-37.0 N RED CELL DISTRIBUTION WIDTH CV (test code = RDW) 13.2 % 11.5-14.5 N RED CELL DISTRIBUTION WIDTH SD (test code = RDW-SD) 46.9 fL 37.0-54.0 N PLATELET COUNT (test code = PLT) 349 x10 3/uL 150-400 N MEAN PLATELET VOLUME (test c ode = MPV) 9.0 fL 7.0-9.0 N NEUTROPHIL % (test code = NT%) 72.3 % 56.0-77.0 N IMMATURE GRANULOCYTE % (test code = IG%) 0.4 % 0.0-2.0 N LYMPHOCYTE % (test code = LY%) 18.1 % 14.0-32.0 N MONOCYTE % (test code = MO%) 8.2 % 4.8-9.0 N EOSINOPHIL % (test code = EO%) 0.7 % 0.3-3.7 N BASOPHIL % (test code = BA%) 0.3 % 0.0-2.0 N NUCLEATED RBC % (test code = NRBC%) 0.0 % 0-0 N NEUTROPHIL # (test code = NT#) 7.20 x10 3/uL 2.0-7.6 N IMMATURE GRANULOCYTE # (test code = IG#) 0.04 x10 3/uL 0.00-0.03 H LYMPHOCYTE # (test code = LY#) 1.80 x10 3/uL 1.0-3.8 N MONOCYTE # (test code = MO#) 0.82 x10 3/uL 0.1-0.8 H EOSINOPHIL # (test code = EO#) 0.07 x10 3/uL 0.0-0.2 N BASOPHIL # (test code = BA#) 0.03 x10 3/uL 0.0-0.2 N NUCLEATED RBC # (test code = NRBC#) 0.00 x10 3/uL 0.0-0.1 N MANUAL DIFF REQUIRED (test c ode = MDIFF) NO GLUCOSE [id number] 06:41:00* Test Item Value Reference Range Interpretation Comme nts GLUCOSE BEDSIDE (test code = GLUBED) 68 MG/DL 70-110 L Performed by [employer] napkin machine operator at [facility] GLUCOSE [id number] 21:16:00* Test Item Value Reference Range Interpretation Comme nts GLUCOSE BEDSIDE (test code = GLUBED) 114 MG/DL 70-110 H Performed by [employer] napkin machine operator at [facility] GLUCOSE [id number] 19:47:00* Test Item Value Reference Range Interpretation Comme nts GLUCOSE BEDSIDE (test code = GLUBED) 82 MG/DL 70-110 N Performed by [employer] napkin machine operator at [facility] GLUCOSE [id number] 18:43:00* Test Item Value Reference Range Interpretation Comme nts GLUCOSE BEDSIDE (test code = GLUBED) 66 MG/DL 70-110 L Performed by [employer] tified napkin machine operator at [facility] GLUCOSE [id number] 13:46:00* Test Item Value Reference Range Interpretation Comme nts GLUCOSE BEDSIDE (test code = GLUBED) 85 MG/DL 70-110 N Performed by [employer] napkin machine operator at [facility] GLUCOSE [id number] 13:11:00* Test Item Value Reference Range Interpretation Comme nts GLUCOSE BEDSIDE (test code = GLUBED) 55 MG/DL 70-110 L Performed by [employer] napkin machine operator at [facility] GLUCOSE [id number] 09:02:00* Test Item Value Reference Range Interpretation Comme nts GLUCOSE BEDSIDE (test code = GLUBED) 95 MG/DL 70-110 N Performed by judd jett napkin machine operator at [facility] SED RATE [id number] 07:08:00* Test Item Value Reference Range Interpretation Comme nts SED RATE WESTERGREN (test co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 f/c started noticing redness came to ER states he is not diabetic does have h/o smoking but he says he quit apparently doesnt seek medical care often some pain mostly just numb both feet are numb he states hasn't had any vascular procedures that he knows of unsure how great of a historian he is History - Adult longitudinal Alcohol use: Denies EtOH use Smoking status: Smoking status for patients 13 years old or older: Former Smoker Medications: Current Hospital Medications: Anti-Infective Agents Sig/Dung Start time Last Medication Dose Route Stop Time Status Admin Vancomycin HCl 0 .STK-MED ONE 10/28 0156 DC (VANCOMYCIN HCL) IV Cefepime HCl 2 GM X1ED STA 10/27 2317 DC 10/28 (MAXIPIME) IV 10/27 2346 0202 Sodium Chloride 100 ML (SODIUM CHLORIDE 0.9% 100 ML) Vancomycin HCl 1,000 MG X1ED STA 10/27 2316 DC 10/28 (VANCOMYCIN HCL) IV 10/28 15 0203 Sodium Chloride 250 ML (SODIUM CHLORIDE 0.9%) Vancomycin HCl 1,000 MG X1ED STA 10/27 2316 DC (VANCOMYCIN HCL) IV 10/28 001 Sodium Chloride 250 ML (SODIUM CHLORIDE 0.9%) Cardiovascular Drugs Sig/Dung Start time Last Medication Dose Route Stop Time Status Admin Hydralazine HCl 10 MG Q2H PRN PRN 10/28 0045 AC (APRESOLINE) IV 10/28 2330 Central Nervous System Agents Sig/Dung Start time Last Medication Dose Route Stop Time Status Admin Hydrocodone Bitart/ 1 TAB Q4H PRN PRN 10/28 0045 AC 10/28 Acetaminophen PO 10/28 2330 0259 (NORCO 5/325) Ibuprofen 600 MG Q6H PRN PRN 10/28 44 AC (IBUPROFEN) PO 10/28 2330 Lorazepam 1 MG Q4H PRN PRN 10/28 0045 AC 10/28 (ATIVAN) IV 10/28 2330 0619 Morphine Sulfate 4 MG Q4H PRN PRN 10/28 004 AC (morphine SULFATE) IV 10/28 2330 Electrolytic, Caloric, And Marivel Sig/Dung Start time Last Medication Dose Route Stop Time Status Admin Dextrose/Water 25 ML ASDIR PRN 10/285 CKD (DEXTROSE 50% W IV 10/28 2330 SYRINGE) Dextrose/Water 50 ML ASDIR PRN 10/28 44 CKD (DEXTROSE 50% W IV 10/28 2330 SYRINGE) Sodium Chloride 0 ASDIR PRN 10/28 44 AC (SODIUM CHLORIDE) IV 10/28 2330 Sodium Chloride 1,000 ML X1ED STA 10/27 2316 DC (SODIUM CHLORIDE IV 10/27 2317 0.9%) Gastrointestinal Drugs Sig/Dung Start time Last Medication Dose Route Stop Time Status Admin Metoclopramide HCl 10 MG Q6H PRN PRN 10/28 44 AC (REGLAN) IV 10/28 2330 Hormones And Synthetic Substit Sig/Dung Start time Last Medication Dose Route Stop Time Status Admin Insulin Human Lispro 0 AC HS 10/28 729 AC (HUMALOG) SUBQ 10/28 2330 Glucagon 1 MG ASDIR PRN 10/28 44 AC (GLUCAGON) IM 10/28 2330 Allergies: Coded Allergies: No Known Allergies (10/27/21) Review of Systems Constitutional: fatigue, generalized weakness, lethargy. Skin: abrasion, bruising. Cardiovascular: edema. Musculoskeletal: joint pain. Denies: lumbar pain. Neuro: numbness. Denies: seizure. All systems rev neg: except as marked Objective General VS: Last Documented: Result Date Time Pulse Ox 98 10/27 2258 B/P 120/80 10/27 2258 B/P Mean 93 10/27 2258 O2 Delivery Room air 10/27 2258 Temp 36.6 10/27 2258 Pulse 102 10/27 2258 Resp 17 10/27 2258 PATIENT WEIGHT: Weight (lb): Weight (oz): Weight (kg): 90.000 Medications: Active Meds + DC'd Last 24 Hrs Insulin Human Lispro (HUMALOG) 0 AC HS SUBQ Vancomycin HCl (VANCOMYCIN HCL) 0 .STK-MED ONE IV (DC) Dextrose/Water (DEXTROSE 50% W SYRINGE) 25 ML ASDIR PRN IV (CKD) Dextrose/Water (DEXTROSE 50% W SYRINGE) 50 ML ASDIR PRN IV (CKD) Glucagon (GLUCAGON) 1 MG ASDIR PRN IM Hydralazine HCl (APRESOLINE) 10 MG Q2H PRN PRN IV Hydrocodone Bitart/Acetaminophen (NORCO 5/325) 1 TAB Q4H PRN PRN PO Ibuprofen (IBUPROFEN) 600 MG Q6H PRN PRN PO Lorazepam (ATIVAN) 1 MG Q4H PRN PRN IV Metoclopramide HCl (REGLAN) 10 MG Q6H PRN PRN IV Morphine Sulfate (morphine SULFATE) 4 MG Q4H PRN PRN IV Sodium Chloride (SODIUM CHLORIDE) 0 ASDIR PRN IV Cefepime HCl (MAXIPIME) 2 GM X1ED STA IV (DC) Sodium Chloride (SODIUM CHLORIDE 0.9% 100 ML) 100 ML Sodium Chloride (SODIUM CHLORIDE 0.9%) 1,000 ML X1ED STA IV (DC) Vancomycin HCl (VANCOMYCIN HCL) 1,000 MG X1ED STA IV (DC) Sodium Chloride (SODIUM CHLORIDE 0.9%) 250 ML Vancomycin HCl (VANCOMYCIN HCL) 1,000 MG X1ED STA IV (DC) Sodium Chloride (SODIUM CHLORIDE 0.9%) 250 ML Physical Exam General appearance: alert, awake, oriented, conversational, no respiratory distress Wound/incision: Location: left foot Site condition: ecchymosis, erythema, necrotic tissue, odor, dp/pt 0/4 left and right light touch decreased bilat foot edema left worse than right ulcer posterior to lateral left heel necrosis of left foot from lateral hindfoot to lateral 5th toe some erythema no crepitus skin loss of less foot some areas into muscle layer left 5th toe necrotic some foul smell right foot some hyperkeratosis no true ulcer right foot LE vascular pulse assess: Nonpalpable R posterior tibialis, Nonpalpable L posterior tibialis, Nonpalpable R dorsalis pedis, Nonpalpable L dorsalis pedis Feet - Left Right View (L) [Embedded Image Not Available] 1) Results Findings/Data: Laboratory Tests: 10/28 10/28 10/28 10/28 10/27 0833 0530 0500 0002 2256 Chemistry Sodium (134 - 147 mEq/L) 133 L Potassium (3.4 - 5.0 mEq/L) 4.3 Chloride (100 - 108 mEq/L) 101 Carbon Dioxide (21 - 33 mEq/l) 28 Anion Gap (0 - 20) 9 BUN (7 - 18 mg/dL) 22 H Creatinine (0.6 - 1.3 mg/dL) 1.0 Glomerular Filtr Rate (90 - 95) 76.7 L Glucose (70 - 110 mg/dL) 102 POC Glucose (70 - 110 MG/DL) 95 Lactic Acid (0.4 - 1.9 mmol/l) 0.7 3.1 H Calcium (8.0 - 10.5 mg/dL) 9.2 C-Reactive Protein (<10.0 mg/L) 68.0 H Hematology WBC (4.5 - 11.0 x10 3/uL) 13.6 H RBC (4.00 - 5.60 x10 6/uL) 4.08 Hgb (12.5 - 16.9 g/dL) 12.6 Hct (37.5 - 50.7 %) 39.5 MCV (81.0 - 99.0 fL) 96.8 MCH (27.0 - 33.0 pg) 30.9 MCHC (33.0 - 37.0 g/dL) 31.9 L RDW (11.5 - 14.5 %) 13.3 Plt Count (150 - 400 x10 3/uL) 362 MPV (7.0 - 9.0 fL) 8.7 Neut % (Auto) (56.0 - 77.0 %) 66.1 Lymph % (Auto) (14.0 - 32.0 %) 23.1 Emmons % (Auto) (4.8 - 9.0 %) 9.1 H Eos % (Auto) (0.3 - 3.7 %) 0.7 Baso % (Auto) (0.0 - 2.0 %) 0.3 Neut # (Auto) (2.0 - 7.6 x10 3/uL) 9.00 H Lymph # (Auto) (1.0 - 3.8 x10 3/uL) 3.14 Emmons # (Auto) (0.1 - 0.8 x10 3/uL) 1.24 H Eos # (Auto) (0.0 - 0.2 x10 3/uL) 0.10 Baso # (Auto) (0.0 - 0.2 x10 3/uL) 0.04 Abs Immat Gran (auto) (0.00 - 0.03 0.10 H x10 3/uL) Add Manual Diff NO Immature Gran % (0.0 - 2.0 %) 0.7 Nucleated RBC % (0 - 0 %) 0.0 Nucleated RBCs # (Man) (0.0 - 0.1 0.00 x10 3/uL) ESR Westergren (0 - 15 mm/hr) 87 H Recent Impressions: RADIOLOGY - XR CHEST 1 V 10/27 5299 Report Impression - Status: SIGNED Entered: 10/27/20212357 IMPRESSION: No radiographically identified acute cardiopulmonary findings. Impression By: [email or web address] Citlali Potter M.D. RADIOLOGY - XR FOOT 2 VIEWS LT 10/27 2349 Report Impression - Status: SIGNED Entered: 10/28/2021 0000 IMPRESSION: 1. Osteopenia significantly limits the exam. No gross fracture or bony destruction. 2. Pes planus. 3. Fixation wire noted at the distal left fibula. Impression By: Sarah Castaneda M.D. Diagnosis, Assessment Plan Free Text A P: gangrene left foot cellulitis left foot ulcers left heel to lateral left hindfoot to left forefoot pvd bilateral neuropathy bilateral leukocytosis IV abx santyl dressing get arterial studies will need angio most likely xray: no gas monitor leukocytosis at 1040 RPT #:[id number] END OF REPORT [facility] 2021-10-27 19:36:00 [facility] ([facility] EMERGENCY PROVIDER REPORT REPORT#:[id number] REPORT STATUS: Signed DATE:10/27/21 TIME: 1935 PATIENT: VIKA CHEN UNIT #: [id number] ROOM/BED: [place] [address] AGE: 56 SEX: M PCP PHYS: Savanna Lira MD SERVICE AUTHOR: Chris Paulson PA * ALL edits or amendments must be made on the electronic/computer document * Chris Paulson 10/27/211935: HPI-Foot Prob/Inj Free Text HPI Notes Free Text HPI Notes CALL TONI HOLLIS 56 M with multiple medical co-morbid conditions presents with L foot infection. Pt PCP Pankaj sent the patient here. Financial Management Consultant claims Toni Hollis has been contacted and we will need to contact him for details. Patient currently has no complaints. General Confirmed Patient Yes Provider in Triage Greet Note I have greeted and performed a focused rapid initial assessment of this patient. A comprehensive ED assessment and evaluation of the patient, analysis of all test results, and completion of the medical decision-making process will be conducted by additional ED providers. Past Medical History - Adult Stated Complaint EVAL WOUND L FOOT. SENT PCP Physical Exam Basic Physical Exam Basic PE GEN: Well appearing/NAD, appears chronically ill, NAD Focused PE General/Const General/Const Awake, Alert Angelo Deluna 10/28/21 0023: HPI-Foot Prob/Inj Free Text HPI Notes Free Text HPI Notes Agree with HPI as above. Patient difficult to understand and contract administrative assistant not available. 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 General Initial Greet Date/Time 10/27/211928 Presentation Chief Complaint Foot swelling L Review of Systems ROS Statements All systems rev neg except as marked. Free Text ROS Notes Free Text ROS Notes Review of Systems Constitutional Denies: Chills, Fatigue, Fever. Respiratory Denies: Cough, non-productive, Shortness of breath. Cardiovascular Denies: Chest pain, Palpitations. Musculoskeletal Reports: Left foot pain, left foot swelling Skin Reports: Redness to his left foot Past Medical History - Adult Allergies Coded Allergies: No Known Allergies (10/27/21) Physical Exam Vital Signs Vital Signs First Documented: Result Date Time Pulse Ox 98 10/279 B/P 120/80 10/27 225 B/P Mean 93 10/27 2258 O2 Delivery Room air 10/27 2258 Temp 36.6 10/27 2258 Pulse 102 10/27 2258 Resp 17 10/27 2258 Last Documented: Result Date Time Pulse Ox 98 10/279 B/P 120/80 10/27 2258 B/P Mean 93 10/27 2258 O2 Delivery Room air 10/27 2258 Temp 36.6 10/27 2258 Pulse 102 10/27 2258 Resp 17 10/27 2258 Review of Vital Signs Reviewed Free Text PE Notes Free Text PE Notes Physical Exam General/Const General/Const Awake, Alert, No acute distress, chronically ill-appearing, patient slumped over in his personal wheelchair MS Head Head Atraumatic, Normocephalic Eyes Eyes Atraumatic, PERRL Ears/Nose/Throat Ears/Nose/Throat Atraumatic, Airway patent, Mucous membranes moist MS Neck Neck Atraumatic, Supple Resp/Chest Respiratory/Chest Atraumatic, No respiratory distress, lungs CTA Cardiovascular Cardiovascular Heart rate NL, Regular rhythm, Heart sounds NL MS lower extremity Unable to fully assess left foot infection due to location of evaluation in the ED but is wrapped with dry Kerlix Interpretation Diagnostics Lab Results Interpretation Results Laboratory Tests 10/27/21 2256: [Embedded Image Not Available] Laboratory Tests: 10/28 10/27 0002 2256 Chemistry Sodium (134 - 147 mEq/L) 133 L Potassium (3.4 - 5.0 mEq/L) 4.3 Chloride (100 - 108 mEq/L) 101 Carbon Dioxide (21 - 33 mEq/l) 28 Anion Gap (0 - 20) 9 BUN (7 - 18 mg/dL) 22 H Creatinine (0.6 - 1.3 mg/dL) 1.0 Glomerular Filtr Rate (90 - 95) 76.7 L Glucose (70 - 110 mg/dL) 102 Lactic Acid (0.4 - 1.9 mmol/L) 3.1 H Calcium (8.0 - 10.5 mg/dL) 9.2 Hematology WBC (4.5 - 11.0 x10 3/uL) 13.6 H RBC (4.00 - 5.60 x10 6/uL) 4.08 Hgb (12.5 - 16.9 g/dL) 12.6 Hct (37.5 - 50.7 %) 39.5 MCV (81.0 - 99.0 fL) 96.8 MCH (27.0 - 33.0 pg) 30.9 MCHC (33.0 - 37.0 g/dL) 31.9 L RDW (11.5 - 14.5 %) 13.3 Plt Count (150 - 400 x10 3/uL) 362 MPV (7.0 - 9.0 fL) 8.7 Neut % (Auto) (56.0 - 77.0 %) 66.1 Lymph % (Auto) (14.0 - 32.0 %) 23.1 Emmons % (Auto) (4.8 - 9.0 %) 9.1 H Eos % (Auto) (0.3 - 3.7 %) 0.7 Baso % (Auto) (0.0 - 2.0 %) 0.3 Neut # (Auto) (2.0 - 7.6 x10 3/uL) 9.00 H Lymph # (Auto) (1.0 - 3.8 x10 3/uL) 3.14 Emmons # (Auto) (0.1 - 0.8 x10 3/uL) 1.24 H Eos # (Auto) (0.0 - 0.2 x10 3/uL) 0.10 Baso # (Auto) (0.0 - 0.2 x10 3/uL) 0.04 Abs Immat Gran (auto) (0.00 - 0.03 x10 3/uL) 0.10 H Add Manual Diff NO Immature Gran % (0.0 - 2.0 %) 0.7 Nucleated RBC % (0 - 0 %) 0.0 Nucleated RBCs # (Man) (0.0 - 0.1 x10 3/uL) 0.00 Microbiology: Date/Time Procedure - Status Source Growth 10/28 0002 Blood Culture - COMP BLOOD 10/28 0002 Blood Culture - COMP BLOOD Recent Impressions: RADIOLOGY - XR CHEST 1 V 10/27 2347 Report Impression - Status: SIGNED Entered: 10/27/20212357 IMPRESSION: No radiographically identified acute cardiopulmonary findings. Impression By: [email or web address] Citlali Potter M.D. RADIOLOGY - XR FOOT 2 VIEWS LT 10/27 2349 Report Impression - Status: SIGNED Entered: 10/28/2021 0000 IMPRESSION: 1. Osteopenia significantly limits the exam. No gross fracture or bony destruction. 2. Pes planus. 3. Fixation wire noted at the distal left fibula. Impression By: Sarah Castaneda M.D. Re-Evaluation MDM Re-Evaluation/Progress Re-Evaluation/Progress Text/Dict Note Will admit patient to medicine and place consult for podiatry. ED Course Medication(s) Ordered Medication(s) Ordered: Cardiovascular Drugs Sig/Dung Start time Last Medication Dose Route Stop Time Status Admin Hydralazine HCl 10 MG Q2H PRN PRN 10/28 44 DC IV 10/28 2330 Central Nervous System Agents Sig/Dung Start time Last Medication Dose Route Stop Time Status Admin Hydrocodone Bitart/ 1 TAB Q4H PRN PRN 10/28 44 DC 10/28 Acetaminophen PO 10/28 2330 1110 Ibuprofen 600 MG Q6H PRN PRN 10/28 44 DC PO 10/28 2330 Lorazepam 1 MG Q4H PRN PRN 10/28 44 DC 10/28 IV 10/28 2330 0619 Morphine Sulfate 4 MG Q4H PRN PRN 10/28 44 DC IV 10/28 233 Electrolytic, Caloric, And Marivel Sig/Dung Start time Last Medication Dose Route Stop Time Status Admin Dextrose/Water 25 ML ASDIR PRN 10/28 004 DC IV 10/28 2330 Dextrose/Water 50 ML ASDIR PRN 10/28 0045 DC IV 10/28 2330 Sodium Chloride 0 ASDIR PRN 10/285 DC IV 10/28 233 Gastrointestinal Drugs Sig/Dung Start time Last Medication Dose Route Stop Time Status Admin Metoclopramide HCl 10 MG Q6H PRN PRN 10/28 0045 DC IV 10/28 233 Hormones And Synthetic Substit Sig/Dung Start time Last Medication Dose Route Stop Time Status Admin Insulin Human Lispro 0 AC HS 10/28 729 DC SUBQ 10/28 2330 Glucagon 1 MG ASDIR PRN 10/28 44 DC IM 10/28 2330 Patient Discharge Departure Vital Signs/Condition Vital Signs First Documented: Result Date Time Pulse Ox 98 10/27 2259 B/P 120/80 10/27 2259 B/P Mean 93 10/27 225 O2 Delivery Room air 10/27 225 Temp 36.6 10/27 225 Pulse 102 02 2259 Resp 17 10/27 2258 Last Documented: Result Date Time Pulse Ox 98 10/27 2259 B/P 120/80 10/27 225 B/P Mean 93 10/27 225 O2 Delivery Room air 10/27 2258 Temp 36.6 10/27 2259 Pulse 102 10/27 2259 Resp 17 10/27 2258 All vital signs available at the time of this entry have been reviewed. Condition Guarded Clinical Impression Clinical Impression Primary Impression: Diabetic infection of left foot Secondary Impressions: Sepsis Disposition Decision Admit Admit Physician Name Cesar Hollis MD Admit Physician Hospitalist Request Time 0026 Request Date 10/28/21 )( Admission Accepts Yes )( Accepted Time 0026 )( Accepted Date 10/28/21 Call Information will see patient Discharge/Care Plan Counseled Regarding Diagnosis, Need for admission Critical Care CC Note 1 Total critical care time [39] minutes. Total critical care time documented does not include time spent on separately billed procedures or the services of residents, students, nurses or physician assistants. I personally saw and examined the patient. I have reviewed all diagnostic interpretations and treatment plans as written. I was present for the lanza portions of any procedures performed and the inclusive time noted in any critical care statement. Critical care time includes patient management by me, time spent at the patients bedside, time to review lab and imaging results, discussing patient care, documentation in the medical record, and time spent with the family or caregiver. Steve Rutledge 11/05/21 0452: Past Medical History - Adult Home Medications Reported Medications busPIRone (BUSPAR) 30 MG PO TID CIPROFLOXACIN (CIPRO) 500 MG Q12 CLINDAMYCIN HCL (CLEOCIN) 300 MG PO Q8 FA/MV/MIN/LYCOPENE/LUTEIN (COMPLETE MULTI 50+) CYCLOBENZAPRINE HCL (FLEXERIL) 5 MG PO TID DIVALPROEX DR (DEPAKOTE DR) 500 MG PO TID FUROSEMIDE (LASIX) 20 MG PO DAILY ATORVASTATIN (LIPITOR) 10 MG PO DAILY LISINOPRIL (ZESTRIL) 10 MG PO DAILY MAGNESIUM OXIDE (MAG-OXIDE) 400 MG PO DAILY MELATONIN 10 MG PO BEDTIME CLOPIDOGREL (PLAVIX) 75 MG PO DAILY QUEtiapine (SEROquel) 400 MG PO BEDTIME QUEtiapine (SEROquel) 200 MG PO DAILY traMADol (ULTRAM) 50 MG PO Q6 PRN PAIN, LEFT LEG ASCORBIC ACID (VITAMIN C) 500 MG PO DAILY ACETAMINOPHEN (TYLENOL) 650 MG PO ONCE DAILY PRN PAIN SERTRALINE (ZOLOFT) 50 MG PO DAILY CALCIUM CARBONATE (TUMS) 500 MG PO TID Zinc Sulfate (ORAZINC) 220 MG PO DAILY LACTOBACILLUS ACIDOPHILUS (PROBIOTIC ACIDOPHILUS) 1 CAP PO DAILY Patient Discharge Departure Supervising Physician Note MidLv Saw Pt Alone I have reviewed the PA/LUNCHROOM ATTENDANT's note and plan of care. I was available for consultation as needed at all times during the patient's visit in the emergency department. I agree with the clinical impression, plan and disposition. at 0629 at 1203 at [phone] RPT #:[id number] END OF REPORT [facility]
[2024-06-11 19:42] LABS: Absolute Eosinophils 0.1 K/uL (0-0.5); Absolute Lymphocytes (CBC) 2.4 K/uL (0.7-4.9); Absolute Monocytes 0.6 K/uL (0.1-1.3); Absolute Neutrophil 3.3 K/uL (1.8-8.0); Basophils % 0.6 % (0-1.3); Eosinophils % 1.2 % (0-4.4); Hematocrit 41.2 % (39.6-49.0); Hemoglobin 13.8 g/dL (13.6-17.9); Lymphocytes % 37.2 % (15.3-44.8); MCHC 33.5 g/dL (32.0-36.0); MCV 89.6 fL (80-100); MPV 7.4 fL (7.6-11.3); Monocytes % 9.3 % (3.3-12.3); Neutrophils % 51.7 % (41.7-73.7); Nucleated RBC Absolute Count 0.1 (0-0); Nucleated Red Blood Cells % 0.7 % (0-0); Platelets 209 thou/uL (152-406); Red Cell Distribution Width 15.8 % (12.1-15.2)
[2024-06-11 19:43] LABS: PT Prothrombin Time 13.6 SECONDS (9.4-12.5); PTT, Activated Partial Thromb 31.2 SECONDS (24.3-36.9); Protime INR 1.22
[2024-06-11] MEDS ORDERED: METHYLPREDNISOLONE 125 MG INJ ONE (19:48)
[2024-06-11] MEDS ORDERED: CEFTRIAXONE 1000 MG/VIAL ONE (19:48)
[2024-06-11 19:52] LABS: SARS-CoV-2 Antigen CONTROL BLUE LINE VIS/BG OK
[2024-06-11 19:53] LABS: SARS-CoV-2 Antigen Rapid Res Positive (Negative)
[2024-06-11 19:56] LABS: Albumin 2.8 g/dL (3.4-5.0); Albumin/Globulin Ratio 0.5 (1.1-1.8); Bilirubin Total 0.3 mg/dL (0.2-1.0); Globulin 6.2 g/dL (2.3-3.5)
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
[2024-06-11] MEDS ORDERED: ACETAMINOPHEN 325 MG TABLET PO PRN (20:22)
[2024-06-11] MEDS ORDERED: IPRATROPIUM BROM 0.5MG/2.5ML NEB PRN (20:22)
[2024-06-11] MEDS ORDERED: ALBUTEROL 2.5 MG/3 ML NEB SOL NEB PRN (20:22)
[2024-06-11] MEDS ORDERED: ONDANSETRON 4 MG/2 ML VIAL IV PRN (20:22)
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
--- NOTE | 2024-06-11 20:56 | RAD REPORT ---
EXAMINATION: ONE VIEW CHEST XR CLINICAL INDICATION: Male, 59 years old. COUGH. RUST MAIN COUGH Bed Name: 8 TECHNIQUE: Frontal chest projection is submitted. Examination is limited by patient positioning and t echnique. COMPARISON: 07/26/2023 FINDINGS: Moderate bilateral pulmonary opacities which may represent pulmonary edema or pneumonia. The heart is moderately enlarged in size. No displaced fractures identified. IMPRESSION: Moderate pulmonary edema versus pneumonia pattern.
[2024-06-12] MEDS: AZITHROMYCIN IV 500 MG in NA CHLORIDE 0.9% 250 ML IVPB SCH (00:44)
[2024-06-12] MEDS: METHYLPREDNISOLONE 125 MG INJ IV SCH (00:44)
[2024-06-12] MEDS: FUROSEMIDE 40 MG/4 ML VIAL IV SCH (03:36)
[2024-06-12 06:40] LABS: Absolute Monocytes 0.1 K/uL (0.1-1.3); Absolute Neutrophil 3.8 K/uL (1.8-8.0); Basophils % 0.2 % (0-1.3); Hemoglobin 13.4 g/dL (13.6-17.9); Lymphocytes % 20.4 % (15.3-44.8); MCHC 33.6 g/dL (32.0-36.0); MCV 89.2 fL (80-100); MPV 7.7 fL (7.6-11.3); Monocytes % 1.1 % (3.3-12.3); Neutrophils % 78.3 % (41.7-73.7); Nucleated Red Blood Cells % 0.2 % (0-0); Platelets 192 thou/uL (152-406); RBC Red Blood Cell Count 4.49 M/uL (4.33-5.43); Red Cell Distribution Width 16.2 % (12.1-15.2)
[2024-06-12 07:02] LABS: Albumin 2.6 g/dL (3.4-5.0); Albumin/Globulin Ratio 0.4 (1.1-1.8); Bilirubin Total 0.3 mg/dL (0.2-1.0); Globulin 6.2 g/dL (2.3-3.5); Protein, Total 8.8 g/dL (6.4-8.2)
--- NOTE | 2024-06-12 07:40 | P.PN ---
Date of Service: 06/12/24 Subjective: confused, coughing and feels short of breath ROS: limited secondary to dementia/confusion Physical Exam: GEN: Oriented x1, NAD, confused, in bed CV: Regular rate and rhythm, no edema Pulm: Nonlabored respirations on 4L NC, Diminished at bases b/l, Crackles/rales, Expiratory wheezes with nonproductive cough ABD: Soft, nontender, nondistended Neuro: left hemiparesis, confused vitals reviewed Problem List: Acute hypoxic respiratory failure secondary to Acute Covid-19 pneumonia / acute COPD exacerbation vs CHF exacerbation Hypertension Hyperlipidemia Hx CVA/TIA with left hemiparesis Hx schizophrenia/anxiety/depression vs CHF exacerbation Acute hypoxic respiratory failure secondary to Acute Covid-19 pneumonia / acute COPD exacerbation concern for pneumonia vs CHF exacerbation presents with worsening shortness of breath, generalized weakness, cough, congestion for at least a week. history/information limited by confusion. Most history obtained from chart review. tested positive for covid-19 in ED CXR (06/11): moderate bilateral pulmonary opacities. ?Pulmonary edema vs pneumonia. Cardiomegaly. continue empiric levaquin (06/12-) to cover possible bacterial pneumonia IV steroids deescalated to PO prednisone 06/12 IV lasix held d/t low BP; dc'd 06/12 per pulm Pulm consulted wean oxygen as tolerated Echo (06/12): Roughly normal systolic function, normal wall motion, normal EF Limited study d/t uncooperative Hypertension yperlipidemia Hx CVA/TIA with left hemiparesis Hx schizophrenia/anxiety/depression confirm home meds, restart as appropriate continue supportive care VTE: Lovenox Code: Full Dispo: back to detention, ~2-3 dyas Time Spent Managing Pts Care (In Minutes): 41
[2024-06-12] MEDS: ARFORMOTEROL TARTRATE 15 MCG/2 ML VIAL.NEB NEB SCH (08:15)
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
[2024-06-12] MEDS: ALBUTEROL 2.5 MG/3 ML NEB SOL NEB SCH (09:00)
[2024-06-12] MEDS: levoFLOXacin 750 MG TAB PO SCH (09:26)
[2024-06-12] MEDS: predniSONE 20 MG TAB PO SCH (09:27)
[2024-06-12] MEDS: ENOXAPARIN 40 MG/0.4 ML SQ SCH (09:27)
--- NOTE | 2024-06-12 10:25 | EKG ---
Test Date: 2024-06-11 Test Time: 19:20:08 Iron Pellet Tester: TERRI MEASUREMENT RESULTS: Intervals: Rate: 79 CT: 150 QRSD: 88 QT: 390 QTc: 447 Dale: P: 59 CT: 150 QRS: 15 T: 69 INTERPRETIVE STATEMENTS: Normal sinus rhythm Cannot rule out Inferior infarct, age undetermined Cannot rule out Anterior infarct, age undetermined Abnormal ECG Compared to ECG 07/26/2023 19:27:43 Sinus tachycardia no longer present Myocardial infarct finding still present Electronically Signed On 06-12-24 10:23:47 CDT by Miguel Angel Lazar
--- NOTE | 2024-06-12 11:06 | ECHO ---
HEIGHT: 5 ft 10 in WEIGHT: 174 lb 6.4 oz DATE OF STUDY: 06/12/[address]: Barrie Juarez MD 2-DIMENSIONAL: YES M.MODE: YES DOPPLER: YES COLOR FLOW: YES TDS: YES PORTABLE: YES DEFINITY: BUBBLE STUDY: DIAGNOSIS: EVALUATE FUNCTION/ VALVES/ CONGESTIVE HEART FAILURE CARDIAC HISTORY: CATHERIZATION: SURGERY: PROSTHETIC VALVE: PACEMAKER: MEASUREMENTS (cm) DIASTOLIC (NORMALS) SYSTOLIC (NORMALS) IVSd 1.0 (0.6-1.2) LA Diam (1.9-4.0) LVEF 60-65% LVIDd 4.4 (3.5-5.7) LVIDs 2.8 (2.0-3.5) %FS 35% LVPWd 1.0 (0.6-1.2) Ao Diam (2.0-3.7) 2 DIMENSIONAL ASSESSMENT: RIGHT ATRIUM: NOT SEEN LEFT ATRIUM: NOT WELL VISUALIZED RIGHT VENTRICLE: NOT SEEN LEFT VENTRICLE: NORMAL TRICUSPID VALVE: NOT SEEN MITRAL VALVE: NOT SEEN PULMONIC VALVE: NOT SEEN AORTIC VALVE: NOT SEEN PERICARDIAL EFFUSION: NONE AORTIC ROOT: NORMAL LEFT VENTRICULAR WALL MOTION: NORMAL DOPPLER/COLOR FLOW: NOT ASSESSED COMMENTS: 1. LIMITED VIEWS OBTAINED DUE TO PATIENT UNCOOPERATIVE 2. ROUGHLY NORMAL SYSTOLIC FUNCTION, NORMAL WALL MOTION, EJECTION FRACTION 60-65% 3. VALVES WERE NOT ASSESSED TECHNOLOGIST: ZOEY WILKES
[2024-06-12] MEDS: IPRATROPIUM BROM 0.5MG/2.5ML NEB SCH (13:28)
[2024-06-12] MEDS: OLANZapine 2.5 MG TAB PO ONE (13:34)
[2024-06-12] MEDS ORDERED: OLANZapine 2.5 MG TAB PO PRN (17:43)
[2024-06-12] MEDS ORDERED: CEFTRIAXONE 1,000 MG in NA CHLORIDE 0.9% 50 ML IVPB SCH (20:00)
[2024-06-12] MEDS ORDERED: HOME MED 1 EA UNK (Divalproex Sodium [Depakote Er] 500 MG Tab.Er.24h) PO SCH (21:00)
[2024-06-12] MEDS: DIVALPROEX ER 250 MG TAB PO SCH (21:15)
[2024-06-12] MEDS: BUSPIRONE HCL 15 MG TABLET PO SCH (21:15)
[2024-06-12] MEDS: PREGABALIN 50 MG CAP PO SCH (21:15)
[2024-06-13] MEDS: HALOPERIDOL LACT 5 MG/ML INJ IV ONE (03:32)
[2024-06-13 06:00] LABS: Absolute Lymphocytes (CBC) 1.6 K/uL (0.7-4.9); Absolute Monocytes 0.2 K/uL (0.1-1.3); Basophils % 0.1 % (0-1.3); Hematocrit 36.7 % (39.6-49.0); Hemoglobin 12.4 g/dL (13.6-17.9); Lymphocytes % 17.7 % (15.3-44.8); MCH 30.2 pg (27.0-35.0); MCHC 33.8 g/dL (32.0-36.0); MCV 89.3 fL (80-100); MPV 7.5 fL (7.6-11.3); Monocytes % 2.8 % (3.3-12.3); Neutrophils % 79.4 % (41.7-73.7); Platelets 206 thou/uL (152-406); RBC Red Blood Cell Count 4.11 M/uL (4.33-5.43); Red Cell Distribution Width 15.9 % (12.1-15.2)
[2024-06-13 06:16] LABS: Albumin 2.6 g/dL (3.4-5.0); Albumin/Globulin Ratio 0.5 (1.1-1.8); Anion Gap 9.3 mEq/L (5.0-15.0); Bilirubin Total 0.3 mg/dL (0.2-1.0); Globulin 5.5 g/dL (2.3-3.5); Magnesium 2.5 mg/dL (1.6-2.4); Potassium 3.3 mEq/L (3.5-5.1); Protein, Total 8.1 g/dL (6.4-8.2)
[2024-06-13] MEDS: QUETIAPINE 100MG TAB PO SCH (07:59)
[2024-06-13] MEDS: POTASSIUM CL SA 10 MEQ TAB PO ONE (07:59)
[2024-06-13] MEDS: SERTRALINE HCL 100 MG TAB PO SCH (08:00)
--- NOTE | 2024-06-13 11:41 | P.PN ---
Date of Service: 06/13/24 Subjective: Breathing more comfortably on room air. off oxygen overnight confused / dementia nursing report seems to be less agitated today compared to yesterday afebrile ROS: limited secondary to dementia/confusion Physical Exam: GEN: Oriented x1, NAD, confused, in bed CV: Regular rate and rhythm, no edema Pulm: Nonlabored respirations on room air, Diminished at bases b/l, expiratory wheezes with nonproductive cough ABD: Soft, nontender, nondistended vitals reviewed Problem List: Acute hypoxic respiratory failure secondary to Acute Covid-19 pneumonia / acute COPD exacerbation Hypertension Hyperlipidemia Hx CVA/TIA with left hemiparesis Hx schizophrenia/anxiety/depression Acute hypoxic respiratory failure secondary to Acute Covid-19 pneumonia / acute COPD exacerbation presents with worsening shortness of breath, generalized weakness, cough, congestion for at least a week. history/information limited by confusion. Most history obtained from chart re view. tested positive for covid-19 in ED CXR (06/11): moderate bilateral pulmonary opacities. ?Pulmonary edema vs pneumonia. Cardiomegaly. continue empiric levaquin (06/12-) to cover possible bacterial pneumonia IV steroids deescalated to PO prednisone 06/12 Pulm consulted Echo (06/12): Roughly normal systolic function, normal wall motion, normal EF Limited study d/t uncooperative off oxygen since yesterday evening Hypertension yperlipidemia Hx CVA/TIA with left hemiparesis Hx schizophrenia/anxiety/depression confirm home meds, restart as appropriate continue supportive care VTE: Lovenox Code: Full Dispo: back to jail, ~1-2 days Time Spent Managing Pts Care (In Minutes): 41
[2024-06-13 22:50] VITALS: BMI 25.2
[2024-06-14 07:34] LABS: Absolute Lymphocytes (CBC) 2.9 K/uL (0.7-4.9); Absolute Monocytes 0.6 K/uL (0.1-1.3); Absolute Neutrophil 4.7 K/uL (1.8-8.0); Basophils % 0.4 % (0-1.3); Hematocrit 36.4 % (39.6-49.0); Hemoglobin 11.9 g/dL (13.6-17.9); Lymphocytes % 35.2 % (15.3-44.8); MCH 29.3 pg (27.0-35.0); MCHC 32.7 g/dL (32.0-36.0); MCV 89.8 fL (80-100); MPV 8.1 fL (7.6-11.3); Monocytes % 7.1 % (3.3-12.3); Neutrophils % 57.3 % (41.7-73.7); Platelets 197 thou/uL (152-406); RBC Red Blood Cell Count 4.05 M/uL (4.33-5.43); Red Cell Distribution Width 15.8 % (12.1-15.2)
[2024-06-14 07:43] LABS: Albumin 2.5 g/dL (3.4-5.0); Albumin/Globulin Ratio 0.5 (1.1-1.8); Anion Gap 6.6 mEq/L (5.0-15.0); Bilirubin Total 0.2 mg/dL (0.2-1.0); Globulin 5.1 g/dL (2.3-3.5); Magnesium 2.5 mg/dL (1.6-2.4); Potassium 3.6 mEq/L (3.5-5.1); Protein, Total 7.6 g/dL (6.4-8.2)
[2024-06-14] MEDS: POTASSIUM CL SA 10 MEQ TAB PO ONE (09:12)
--- NOTE | 2024-06-14 10:51 | RAD REPORT ---
EXAMINATION: ONE VIEW CHEST XR CLINICAL INDICATION: Male, 59 years old.,f/u opacities TECHNIQUE: Frontal chest projection is submitted. Examination is limited by patient positioning and t echnique. COMPARISON: 06/11/2024 FINDINGS: The lungs are well inflated with no focal consolidation. Mild central interstitial prominence, partia lly improved since the prior exam. No pneumothorax or sizable effusion. The heart is normal in size. IMPRESSION: Improving central interstitial prominence, suggesting improving edema or congestion.
--- NOTE | 2024-06-14 17:02 | P.PN ---
Date of Service: 06/14/24 Subjective: feels making improvement was reportedly somnolent in the evening, and then overnight/early AM was agitated and given haldol currently calm and followin instruction placed on O2 overnight knows he is in hospital but confused on where exactly. He is able to state he lives at a residential BP low ROS: limited secondary to dementia/confusion Physical Exam: GEN: Oriented x1-2 NAD, confused, CV: Regular rate and rhythm, no edema Pulm: Nonlabored respirations on room air, Diminished at bases b/l, expiratory wheezes with nonproductive cough ABD: Soft, nontender, nondistended vitals reviewed Problem List: Acute hypoxic respiratory failure secondary to Acute Covid-19 pneumonia / acute COPD exacerbation Hypertension Hyperlipidemia Hx CVA/TIA with left hemiparesis Hx schizophrenia/anxiety/depression Acute hypoxic respiratory failure secondary to Acute Covid-19 pneumonia / acute COPD exacerbation presents with worsening shortness of breath, generalized weakness, cough, congestion for at least a week. history/information limited by confusion. Most history obtained from chart review. tested positive for covid-19 in ED CXR (06/11): moderate bilateral pulmonary opacities. ?Pulmonary edema vs pneumonia. Cardiomegaly. continue empiric levaquin (06/12-) to cover possible bacterial pneumonia IV steroids deescalated to PO prednisone 06/12 Pulm consulted Echo (06/12): Roughly normal systolic function, normal wall motion, normal EF Limited study d/t uncooperative on O2 overnight Hypertension Hyperlipidemia Hx CVA/TIA with left hemiparesis Hx schizophrenia/anxiety/depression confirm home meds, restart as appropriate continue supportive care VTE: Lovenox Code: Full Dispo: back to residential, ~1 day wean O2, monitor BP - on lower end today Time Spent Managing Pts Care (In Minutes): 41
[2024-06-15 06:49] LABS: Anion Gap 11.6 mEq/L (5.0-15.0); Potassium 4.6 mEq/L (3.5-5.1)
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
[2024-06-15 13:18] VITALS: O2SAT 95
[2024-06-15 13:50] VITALS: BP 110/71; TEMP 97.9
== END 2024-06-15 13:45 | DRG 177 ==
LOC: ER 18:42 → ERHOLD 20:22 → 4TH 21:17
PROVIDERS: ADMIT Family Medicine; ATTEND Hospitalist
DX: U07.1 COVID-19 (principal); I50.43 Acute on chronic combined systolic (congestive) and diastolic (congestive) heart failure; J12.82 Pneumonia due to coronavirus disease 2019; J96.01 Acute respiratory failure with hypoxia; G81.94 Hemiplegia, unspecified affecting left nondominant side; J44.1 Chronic obstructive pulmonary disease with (acute) exacerbation; J44.0 Chronic obstructive pulmonary disease with (acute) lower respiratory infection; F20.89 Other schizophrenia; F03.911 Unspecified dementia, unspecified severity, with agitation; F03.94 Unspecified dementia, unspecified severity, with anxiety; F03.93 Unspecified dementia, unspecified severity, with mood disturbance; I11.0 Hypertensive heart disease with heart failure; E78.5 Hyperlipidemia, unspecified; E87.70 Fluid overload, unspecified; F17.210 Nicotine dependence, cigarettes, uncomplicated; Z88.7 Allergy status to serum and vaccine; Z79.82 Long term (current) use of aspirin; Z79.899 Other long term (current) drug therapy; Z79.890 Hormone replacement therapy; Z89.612 Acquired absence of left leg above knee
CPT/HCPCS: 36415; 71045; 80048; 80053; 82947; 83605; 83735; 83880; 85025; 85610; 85730; 87040; 87804; 87811; 93005; 93306; 94640; 94760; 96365; 96375; 99285; J0696; J1630; J1650; J2919; J7050; J7512; J7605; J7613; J7644